=== PATIENT | female | born 1965 | race Caucasian/White ===

== ENCOUNTER 2016-08-21 11:29 | Inpatient (IN) ==
[2016-08-21] MEDS ORDERED: *HR* Morphine 2 MG/ML SYRINGE IV ONE (12:08)
--- NOTE | 2016-08-21 12:15 | Emergency Department Note ---
Disposition Clinical Impression: Cellulitis of right lower extremity, Acute kidney injury Disposition: Admitted As Inpatient Condition: Fair Time of Disposition: 16:06 Extremity Problem HPI - General Chief complaint: ED Wound/Laceration Stated complaint: "my whole right side hurts" Time Seen by Provider: 08/21/16 11:58 Source: patient, family Mode of arrival: private vehicle Limitations: no limitations Nursing Notes Reviewed: Yes Vital Signs Reviewed: Yes - History of Present Illness Pt Subjective Complaint: extremity pain Onset (ago): day(s) (This is the fourth day) Consistency: constant, Worsening Injury Location: right, lower extremity Pain Scale: 10 Quality: sharp Radiation: proximal Improves with: nothing Worsens with: weight bearing, walking, palpation Associated symptoms: Reports: chest pain (Right sided chest pain), abdominal pain (Right-sided abdominal pain), other (Right-sided arm pain. In fact I specifically asked the patient if I draw a line down the middle of your head all the way down to in between your legs Re: Saying that you hurt everywhere on the right side of that line but not on the left-hand side line and the patient responded yes that is exactly how the pain is being distributed. She also feels that is actually all coming upward from her leg.) Context: history of peripheral vascular disease (She has a chronic ulceration on the bottom of her left foot.) - Related Data Home Medications Medication Instructions Recorded Confirmed Atorvastatin Calcium [Lipitor] 80 mg PO DAILY 08/21/16 08/21/16 Clopidogrel [Plavix] 75 mg PO DAILY 08/21/16 08/21/16 Ferrous Sulfate [Ferrous Sulfate] 325 mg PO BIDWM 08/21/16 08/21/16 Gabapentin [Neurontin] 300 mg PO BID 08/21/16 08/21/16 Hydrochlorothiazide 25 mg PO DAILY 08/21/16 08/21/16 [Hydrochlorothiazide] Insulin ASPART [Novolog Flexpen] 0 unit SQ ACHS MDD Sliding Scale 08/21/1608/21 Insulin Glargine,Hum.rec.anlog 40 unit SQ QAM AND QHS 08/21/16 08/21/16 [Lantus Solostar] Lisinopril [Zestril] 10 mg PO DAILY 08/21/16 08/21/16 Magnesium Oxide [Magnesium] 400 mg PO DAILY 08/21/16 08/21/16 Metformin HCl [Metformin HCl] 1,000 mg PO BID 08/21/16 08/21/16 Nitroglycerin [Nitrostat] 0.4 mg SL Q5M PRN 08/21/16 08/21/16 Ranitidine HCl [Acid Senior Lead Software Engineer] 150 mg PO BID 08/21/16 08/21/16 Sennosides/Docusate Sodium 1 tab PO HS 08/21/16 08/21/16 [Senexon-S Tablet] Sertraline [Zoloft] 100 mg PO DAILY 08/21/16 08/21/16 Allergies Allergy/AdvReac Type Severity Reaction Status Date / Time Hydromorphone [From Dilaudid] Allergy Palpitation Verified 04/01/15 16:49 s All systems ED: reviewed and negative except as stated. Constitutional: Denies: fever, chills ENT ED: Denies: ear pain, throat pain, congestion Cardiovascular: Reports: chest pain. Denies: palpitations Respiratory: Denies: cough, dyspnea, wheezes Gastrointestinal: Reports: abdominal pain. Denies: nausea, vomiting, diarrhea Genitourinary: Denies: urgency Musculoskeletal: Denies: back pain, neck pain Integumentary: Reports: rash (She complains that her right lower extremity is getting redder than normal.) Neurological: Reports: weakness (Generalized) Past Medical History - Past Medical History Attestation: Yes The following information was validated with the patient. Source: patient, old records reviewed, obtained from family, nursing notes reviewed Medical history: Reports: diabetes, hyperlipidemia, hypertension Surgical history: Reports: other (R foot Sx recent. Still bandaged) Psychiatric history: Reports: no psych history RAP ARTIST history: Reports: no RAP ARTIST history - Social History Smoking Status: Current every day smoker Smokeless Tobacco Status: No Alcohol use: Reports: none Drug use: Reports: none Physical Exam - General Limitations: no limitations General appearance: alert, in no apparent distress - Head Head exam: atraumatic, normocephalic - Eye Eye exam: Present: normal appearance, PERRL, EOMI - ENT ENT exam: normal exam, normal oropharynx, mucous membranes moist - Neck Neck exam: Present: normal inspection, full ROM - Chest Chest inspection: Present: normal inspection, symmetric chest wall rise, tenderness (There is tenderness palpation to the right side of the chest, particularly the right costosternal junctions.) - Respiratory Respiratory exam: Present: normal lung sounds bilaterally. Absent: respiratory distress - Cardiovascular Cardiovascular exam: Present: regular rate, normal rhythm, normal heart sounds - Abdominal Exam Abdominal exam: Present: soft, Non-Tender (Although the patient reports right- sided abdominal pain she has no tenderness to the abdomen at all. She has a tenderness is in the right groin.) - Extremities Exam Extremities exam: Present: tenderness (She has tenderness to the right lower extremity, particularly the posterior calf and popliteal fossa as well as the right groin.), pedal edema (There appear to be chronic venous stasis changes to the skin.), calf tenderness, other (The patient has erythema that is warm and tender over the lower leg. There is an open ulcer of the right heel which is chronic.) - Neurological Exam Neurological exam: Present: alert, oriented X3. Absent: motor sensory deficit - Psychiatric Psychiatric exam: Present: normal affect, normal mood - Skin Skin exam: Present: warm, dry Course Course Narrative: Patient presents with pain to the entire right side of her body. She has some chest wall tenderness which explains her chest discomfort. She has no tenderness to palpation of the abdomen. She has discomfort in the right groin on palpation. She is a bit obese so I cannot really feel any lymph nodes although I suspect that there the cause of her discomfort. I think she has got some issues with that right leg including infection and possibly including a DVT. I am going to give her medications for symptom relief. On the do an infectious workup. I will do a chest pain evaluation as well. I am getting a Doppler of the leg to look for clot. Disposition will be based on diagnostic results and reevaluation. - Reevaluation(s) Reevaluation #1: Labs indicated no elevation of white count which is significantly above baseline. Creatinine is also double its baseline. Bicarbonate was low at 16. Patient does not look bad look at her but there is clearly something going on. I think it is all coming from the leg. She has the open wound on the leg. She is noticing pain up the whole leg. She does have redness and warmth to touch of that leg. Doppler study was negative. I discussed the case with hospitalist and will going to admit the patient to the hospital. The nurses are still having some trouble with IV access. We will go and get something by ultrasound and once at 10 we will start the vancomycin and Levaquin. I discussed the case with the hospitalist already and they have accepted the patient for admission. Time: 16:05 Vital Signs Temperature 97.7 F 08/21/16 11:31 Pulse Rate 97 08/21/16 11:31 Respiratory Rate 16 08/21/16 11:31 Blood Pressure 106/62 08/21/16 11:31 O2 Sat by Pulse Oximetry 98 08/21/16 11:31 Temperature 97.7 F 08/21/16 11:31 Pulse Rate 88 08/21/16 15:30 Respiratory Rate 16 08/21/16 15:30 Blood Pressure 108/56 08/21/16 15:30 O2 Sat by Pulse Oximetry 99 08/21/16 15:30 Oxygen Delivery Oxygen Delivery Room Air Extremity Problem, Nontraumati - Medical Records Medical records reviewed: Yes I reviewed the patient's medical records. - Lab Data Lab results reviewed: Yes I reviewed the patient's lab results. Result diagrams: 08/21/16 13:59 08/21/16 13:59 Lab Results 08/21/16 08/21/16 08/21/16 Range/Units 13:50 13:59 13:59 WBC 17.8 H (4.3-11.1) K/mcL RBC 3.99 (3.82-4.97) M/mcL Hgb 10.0 L (11.5-15.4) g/dL Hct 32.2 L (35.3-44.9) % MCV 80.7 L (83.0-100.0) fL MCH 25.1 L (28.0-33.3) pg MCHC 31.1 L (31.6-35.5) g/dL RDW 15.5 H (11.5-14.5) % Plt Count 368 (140-400) K/mcL MPV 9.6 (9.4-12.4) fL Immature Gran % 1.0 (0-4) % Seg Neutrophils % 83.2 % Lymphocytes % 5.4 % Monocytes % 9.4 % Eosinophils % 0.8 % Basophils % 0.2 % Neutrophils # 14.8 H (1.6-8.9) K/mcL Lymphocytes # 1.0 (0.6-4.6) K/mcL Monocytes # 1.7 H (0.0-1.3) K/mcL Eosinophils # 0.2 (0.0-0.6) K/mcL Basophils # 0.0 (0.0-0.2) K/mcL PT 13.0 H (9.4-12.1) Seconds INR 1.2 D-Dimer 794 H (0-500) ng/mLFEU Sodium 125 L (136-145) mEq/L Potassium 4.7 H (3.5-4.5) mEq/L Chloride 99 (98-109) mEq/L Carbon Dioxide 16 L (19-29) mEq/L BUN 34 H (7-20) mg/dL Creatinine 2.10 H (0.57-1.11) mg/dL Est GFR ( Amer) 30 L (> 60) Est GFR (Non-Af Amer) 25 L (> 60) BUN/Creatinine Ratio 16 (6-26) Glucose 163 H (70-99) mg/dL Calculated Osmolality 271 L (280-300) Calcium 8.8 (8.6-10.8) mg/dL Troponin I (0-0.03) ng/mL 08/21/16 Range/Units 13:59 WBC (4.3-11.1) K/mcL RBC (3.82-4.97) M/mcL Hgb (11.5-15.4) g/dL Hct (35.3-44.9) % MCV (83.0-100.0) fL MCH (28.0-33.3) pg MCHC (31.6-35.5) g/dL RDW (11.5-14.5) % Plt Count (140-400) K/mcL MPV (9.4-12.4) fL Immature Gran % (0-4) % Seg Neutrophils % % Lymphocytes % % Monocytes % % Eosinophils % % Basophils % % Neutrophils # (1.6-8.9) K/mcL Lymphocytes # (0.6-4.6) K/mcL Monocytes # (0.0-1.3) K/mcL Eosinophils # (0.0-0.6) K/mcL Basophils # (0.0-0.2) K/mcL PT (9.4-12.1) Seconds INR D-Dimer (0-500) ng/mLFEU Sodium (136-145) mEq/L Potassium (3.5-4.5) mEq/L Chloride (98-109) mEq/L Carbon Dioxide (19-29) mEq/L BUN (7-20) mg/dL Creatinine (0.57-1.11) mg/dL Est GFR ( Amer) (> 60) Est GFR (Non-Af Amer) (> 60) BUN/Creatinine Ratio (6-26) Glucose (70-99) mg/dL Calculated Osmolality (280-300) Calcium (8.6-10.8) mg/dL Troponin I 0.01 (0-0.03) ng/mL - Radiology Data Radiology results reviewed: Yes I reviewed the patient's radiology results. - EKG Data EKG attestation: Yes I reviewed and interpreted this EKG. EKG shows normal: sinus rhythm, axis, intervals, QRS complexes, ST-T waves Rate: normal Interpretation: no acute changes, normal EKG
[2016-08-21] MEDS ORDERED: *HR* Morphine 2 MG/ML SYRINGE IVP ONE (13:02)
[2016-08-21 14:15] LABS: INR 1.2
[2016-08-21 14:16] LABS: Basophils % 0.2 %; Eosinophils # 0.2 K/mcL (0.0-0.6); Eosinophils % 0.8 %; Hematocrit 32.2 % (35.3-44.9); Lymphocytes % 5.4 %; Mean Corpuscular HGB Conc 31.1 g/dL (31.6-35.5); Mean Corpuscular Hemoglobin 25.1 pg (28.0-33.3); Mean Corpuscular Volume 80.7 fL (83.0-100.0); Mean Platelet Volume 9.6 fL (9.4-12.4); Monocytes # 1.7 K/mcL (0.0-1.3); Monocytes % 9.4 %; Neutrophils # 14.8 K/mcL (1.6-8.9); Platelet Count 368 K/mcL (140-400); Red Blood Count 3.99 M/mcL (3.82-4.97); Red Cell Distribution Width 15.5 % (11.5-14.5); Segmented Neutrophils % 83.2 %
[2016-08-21 14:28] LABS: Calcium 8.8 mg/dL (8.6-10.8); Potassium 4.7 mEq/L (3.5-4.5)
[2016-08-21] MEDS ORDERED: Levofloxacin 750 MG/150 ML 750 MG/150 ML BAG IVPB ONE (16:03)
[2016-08-21] MEDS ORDERED: Vancomycin (wt based) 1,000 MG VIAL IV SCH (17:00)
[2016-08-21] MEDS ORDERED: Vancomycin 2,000 MG in D5% in Water 500 ML IVPB ONE (17:00)
[2016-08-21] MEDS ORDERED: Naloxone 0.4 MG/ML INJ IVP PRN (19:18)
[2016-08-21] MEDS ORDERED: Ondansetron ODT 4 MG TAB.RAPDIS SL PRN (19:18)
[2016-08-21] MEDS ORDERED: *HR* Morphine 2 MG/ML SYRINGE IVP PRN (19:24)
[2016-08-21] MEDS ORDERED: Dextrose Gel 15 GM PO PRN ×2 (19:25)
[2016-08-21] MEDS ORDERED: *HR* Dextrose 50 % in Water (Syg) 50 ML SYRINGE IVP PRN (19:25)
[2016-08-21] MEDS ORDERED: D5% in Water 1,000 ML IV PRN (19:25)
[2016-08-21] MEDS ORDERED: Nitroglycerin 0.4 MG TAB.SUBL SL PRN (19:26)
--- NOTE | 2016-08-21 19:46 | Internal Med History&Physical ---
Date of Encounter: 08/21/16 Time of Encounter: 19:35 Assessment and Plan (1) Cellulitis of right lower extremity Current visit: Yes Status: Acute RLE with erythema and edema, Right foot ulcer, nonhealing. WBC 17.8. blood cultures ordered, awaiting results IV Vanc and Levaquin continue broad spectrum antibiotics. (2) Acute kidney injury Current visit: Yes Status: Acute BUN/Creatinine 34/2.10. Reports poor appetite for the last week. May be due to poor oral intake/dehydration. UA with micro ordered Hold Lisinopril, HCTZ, Metformin IV fluids 0.9NS at 125mL/hr recheck chemistry in morning. If not improved, will get retroperitoneal ultrasound, and further work up. (3) Non-healing ulcer Current visit: Yes Status: Acute Reports she has had this wound for 5 years. S/p 3 surgeries, last November 2015. measuring 5cm x 6cm. Foul smelling. Consult to wound care. Xray 2 views to assess for osteomyelitis If Xray negative for osteo, will get MRI. Consult to Podiatry. Qualifiers: Non-pressure ulcer stage: with fat layer exposed Qualified Code(s): L98.492 - Non-pressure chronic ulcer of skin of other sites with fat layer exposed (4) Type 2 diabetes mellitus Current visit: Yes Status: Acute diabetic diet check blood sugar ACHS basal insulin dose of 40u detemir Sliding scale correction dose ACHS hypoglycemic protocol. Qualifiers: Diabetes mellitus complication status: with circulatory complication Diabetes mellitus complication detail: with other circulatory complications Diabetes mellitus retirement insulin use: with counseling center manager use Qualified Code(s) : E11.59 - Type 2 diabetes mellitus with other circulatory complications; Z79.4 - claims collector (current) use of insulin (5) DVT prophylaxis Current visit: Yes Status: Acute up to chair BID calf compressors Heparin 5,000u SQ BID (6) Hyponatremia Current visit: Yes Status: Acute sodium of 125 IV fluids 0.9NS at 125mL/hr recheck chemistry in AM Internal Medicine - H&P: HPI Chief complaint: right sided pain Admitted From: Emergency Dept Plans for Post Hospital Care: Home History of present illness: Ms. Mccallum is a 50 year old female with history of type 2 diabetes, peripheral vascular disease, hyperlipidemia, coronary artery disease, and chronic right heel foot ulcer who presented to the emergency department today after having right-sided pain since Saturday. She reports her whole right side started hurting on Saturday and she will call today and it was worse. Poor appetite for about a week, fever to 100 degrees Fahrenheit, chills, lightheadedness. She reports tenderness to the whole entire right side of her body including her abdomen and chest. She denies palpitations, sweats, nausea, diarrhea, numbness , tingling. She has a non-healing ulcer on her right heel for the past 5 years , she has had 3 surgeries on it last being in November 2015. She was concerned it might be infected "again". She reports having osteomyelitis in the past, and sees a compound specialist in [place]. She has home health visit daily for dressing changes. Work up in the ED was significant for leukocytosis with WBC of 17.8, REMY with Cr of 2.10, hyponatremia with sodium of 125. On exam, she is alert and oriented and appears comfortable. Lungs are clear bilaterally, heart has regular rate and rhythm. Wound on right heel measures 5cm x 6cm and is round with maceration at margins, is through to sub cutaneous tissue, and is foul smelling. It has moderate amount of serosanguinous drainage on dressing. The patient's case was discussed with Dr. Garcia and he agreed with the assessment and plan set forth. Past Med Surg Social Fam HX - Past Medical History Medical history: coronary artery disease, diabetes, GERD, hyperlipidemia, hypertension, peripheral artery disease Psychiatric history: no psych history - Past Surgical History Surgical History: angioplasty/stent, orthopedic, other (right foot surgery x 3 ) , other - Social History Smoking Status: Current every day smoker Packs per day: 1 Smokeless Tobacco Status: No Alcohol use: none Drug use: none - Family History Mother Family Member Ethnicity: Non- Living Status: Still Living Hx Family Cardiac Disorders: Yes Hx Family Endocrine Disorder: Yes (type 2 diabetes) Father Family Member Ethnicity: Non- Living Status: Still Living Hx Family Endocrine Disorder: Yes (type 2 diabetes) Internal Medicine - H&P: Meds Atorvastatin Calcium [Lipitor] 80 mg PO DAILY 08/21/16 [History] Clopidogrel [Plavix] 75 mg PO DAILY 08/21/16 [History] Ferrous Sulfate [Ferrous Sulfate] 325 mg PO BIDWM 08/21/16 [History] Gabapentin [Neurontin] 300 mg PO BID 08/21/16 [History] Hydrochlorothiazide [Hydrochlorothiazide] 25 mg PO DAILY 08/21/16 [History] Insulin ASPART [Novolog Flexpen] 0 unit SQ ACHS MDD Sliding Scale 08/21/16 [ History] Insulin Glargine,Hum.rec.anlog [Lantus Solostar] 40 unit SQ QAM AND QHS [History] Lisinopril [Zestril] 10 mg PO DAILY 08/21/16 [History] Magnesium Oxide [Magnesium] 400 mg PO DAILY 08/21/16 [History] Metformin HCl [Metformin HCl] 1,000 mg PO BID 08/21/16 [History] Nitroglycerin [Nitrostat] 0.4 mg SL Q5M PRN 08/21/16 [History] Ranitidine HCl [Acid Maintenance Inspector] 150 mg PO BID 08/21/16 [History] Sennosides/Docusate Sodium [Senexon-S Tablet] 1 tab PO HS 08/21/16 [History] Sertraline [Zoloft] 100 mg PO DAILY 08/21/16 [History] Allergies Hydromorphone [From Dilaudid] Allergy (Verified 04/01/15 16:49) Palpitations All Systems PM: A 10-system review of systems was performed and is negative for pertinent findings except as documented above in the HPI. - Constitutional Constitutional: chills, fever(s), no night sweats - EENT Eyes: no change in vision, no discharge, no pain, no photophobia Ears: no ear discharge, no ear pain, no tinnitus Nose, mouth and throat: no dysphagia, no nasal discharge, no neck pain, no sore throat - Cardiovascular Cardiovascular ROS IM: chest pain (right sided), no diaphoresis, no dyspnea, no lightheadedness, no palpitations, no syncope - Respiratory Respiratory: no cough, no dyspnea, no wheezing, no excessive phlegm production - Gastrointestinal Gastrointestinal: abdominal pain (right sided), no diarrhea, no hematemesis, no hematochezia, no melena, no nausea, no vomiting - Genitourinary Genitourinary: no change in urinary stream, no dysuria, no flank pain, no hematuria - Musculoskeletal Musculoskeletal ROS IM: no numbness, no tingling - Integumentary Integumentary IM: non-healing lesions, no rash, no unusual bruising - Neurological Neurological ROS: no confusion, no convulsions, no focal weakness, no numbness, no tingling, no tremor(s) - Hematologic/Lymphatic Hematologic/Lymphatic: no easy bruising - Constitutional Vitals: Temp Pulse Resp BP Pulse Ox 98.1 F 90 16 93/62 98 08/21/16 17:20 08/21/16 17:20 08/21/16 17:20 08/21/16 17:20 08/21/16 17:20 General appearance: Present: A&O X 3, morbidly obese, pleasant, no acute distress - Head Head exam: Present: atraumatic, normocephalic - Eye Eye exam: Present: PERRL, conjuntiva pink, sclera anicteric Pupils: Present: PERRL - Neck Neck exam general surgery: Present: supple, trachea midline. Absent: lymphadenopathy - Respiratory Respiratory exam: Present: CTAB. Absent: accessory muscle use, rales, rhonchi, wheezes - Cardiovascular Cardiovascular exam: Present: RRR, +S1, +S2. Absent: diastolic murmur, gallop, rubs, systolic murmur - GI/Abdominal GI/Abdominal exam: Present: normal bowel sounds, soft, tenderness (right sided) , no peritoneal signs. Absent: distended - Extremities Exam Extremities exam: Present: pedal edema, tenderness, warm, radial pulses palpable and symetrical. Absent: calf tenderness, cyanotic Additional comments: right heel ulcer 5cm x 6cm to subcutaneous tissue, foul smelling, with sero- sanguinous drainage. Bilateral calve edema and erythema R> L. - Neurological Exam Neurological exam: Present: CN II-XII intact, oriented X3, no focal deficits. Absent: facial droop, speech deficit - Skin Skin exam: Present: dry Internal Med - H&P Results - Labs CBC & Chem 7: 08/21/16 13:59 08/21/16 13:59
[2016-08-21] MEDS: 0.9 % Sodium Chloride 1,000 ML IVC SCH (20:30)
[2016-08-21] MEDS: Gabapentin 300 MG CAPSULE PO SCH (20:32)
[2016-08-21] MEDS ORDERED: Insulin DETEMIR 100 UNIT/ML X5UNITS SQ SCH ×2 (21:00→23:06)
[2016-08-21] MEDS: Insulin LISPRO 300 UNITS/3 ML VIAL SQ SCH (21:08)
[2016-08-21] MEDS: Sennosides/Docusate Sodium TABLET PO SCH (22:03)
[2016-08-21 23:40] LABS: Bacteria,Urine Few per hpf (None-Few); Hyaline Casts,Urine None Seen per lpf (None-Few); RBC,Urine 30-50 per hpf (0-3); Squamous Epithelial Cell,Urine Many per lpf (None-Few); WBC,Urine TNTC per hpf (0-3)
[2016-08-21 23:44] LABS: Bilirubin,Urine Negative (Negative); Blood,Urine Moderate (Negative); Clarity,Urine Turbid (Clear); Color,Urine Yellow (Yellow); Glucose,Urine (UA) Normal (Normal); Ketones,Urine Negative (Negative); Leukocyte Esterase,Urine Large (Negative); Nitrite,Urine Negative (Negative); PH,Urine 5.5 pH Units (5.0-8.0); Protein,Urine 30 mg/dL (Neg-Trace); Specific Gravity,Urine 1.014 (1.010-1.025); Urobilinogen,Urine Normal (Normal)
[2016-08-21] MEDS ORDERED: Vancomycin 2,000 MG in D5% in Water 250 ML IVPB SCH (23:45)
[2016-08-22 01:54] LABS: VBG HCO3 24.9 mEq/L (21-27); VBG PH 7.36 pH Units (7.32-7.42)
[2016-08-22 01:56] LABS: Basophils % 0.2 %; Eosinophils # 0.1 K/mcL (0.0-0.6); Eosinophils % 0.8 %; Hematocrit 29.9 % (35.3-44.9); Hemoglobin 9.6 g/dL (11.5-15.4); Immature Granulocytes % 0.8 % (0-4); Immature Platelets 2.4 % (1.1-6.1); Lymphocytes # 0.8 K/mcL (0.6-4.6); Lymphocytes % 4.8 %; Mean Corpuscular HGB Conc 32.1 g/dL (31.6-35.5); Mean Corpuscular Hemoglobin 25.9 pg (28.0-33.3); Mean Corpuscular Volume 80.6 fL (83.0-100.0); Mean Platelet Volume 9.9 fL (9.4-12.4); Monocytes # 1.3 K/mcL (0.0-1.3); Monocytes % 7.9 %; Neutrophils # 13.6 K/mcL (1.6-8.9); Platelet Count 392 K/mcL (140-400); Red Blood Count 3.71 M/mcL (3.82-4.97); Red Cell Distribution Width 15.6 % (11.5-14.5); Segmented Neutrophils % 85.5 %
[2016-08-22 02:12] LABS: Calcium 8.4 mg/dL (8.6-10.8); Potassium 5.3 mEq/L (3.5-4.5)
[2016-08-22] MEDS: 0.9 % Sodium Chloride 1,000 ML IVC SCH ×2 (04:12→20:30)
[2016-08-22] MEDS: *HR* Heparin 5,000 UNIT/ML VIAL SQ SCH ×2 (05:37→17:13)
[2016-08-22] MEDS ORDERED: Insulin LISPRO 300 UNITS/3 ML VIAL SQ SCH (07:30)
[2016-08-22] MEDS: Magnesium Oxide 400 MG TABLET PO SCH (08:29)
[2016-08-22] MEDS: Insulin LISPRO 300 UNITS/3 ML VIAL SQ SCH ×4 (08:30→20:31)
[2016-08-22] MEDS: Gabapentin 300 MG CAPSULE PO SCH ×2 (08:30→20:30)
[2016-08-22] MEDS ORDERED: Levofloxacin 750 MG/150 ML 750 MG/150 ML BAG IVPB SCH (09:00)
[2016-08-22] MEDS ORDERED: hydroCHLOROthiazide 25 MG TABLET PO SCH (09:00)
--- NOTE | 2016-08-22 12:59 | Podiatry Consult Note ---
Date of Encounter: 08/22/16 Time of Encounter: 12:00 Assessment and Plan (1) Acute kidney injury Current visit: Yes Status: Acute (2) Cellulitis of right lower extremity Current visit: Yes Status: Acute (3) Non-healing ulcer Current visit: Yes Status: Acute 1. Chronic right heel ulcer that is being managed by Dr. Banegas at [facility]. 2. Xray completed of right foot upon admission and concerning for osteomyelitis. MRI was ordered but not completed due to a Stent in the right leg. 3. ESR/CRP and wound cultures ordered and pending. WBC: 15.9 4. Wound care to include dressing changes BID. Irrigate wound with saline, apply mesalt, 4x4 gauze and kerlix. 5. Keep all pressure away from the right heel. 6. Agree with present antibiotic therapy. 7. Plan of care reviewed with Dr. Walker and agreeable. 8. Dr. Walker to evaluate patient with in next 24 hours. Qualifiers: Non-pressure ulcer stage: with fat layer exposed Qualified Code(s): L98.492 - Non-pressure chronic ulcer of skin of other sites with fat layer exposed (4) Type 2 diabetes mellitus Current visit: Yes Status: Acute Qualifiers: Diabetes mellitus complication status: with circulatory complication Diabetes mellitus complication detail: with other circulatory complications Diabetes mellitus buttermaker insulin use: with halfway use Qualified Code(s) : E11.59 - Type 2 diabetes mellitus with other circulatory complications; Z79.4 - FDC (current) use of insulin (5) Diabetic neuropathy Current visit: Yes Status: Acute Qualifiers: Diabetes mellitus type: type 2 Diabetes mellitus complication detail: diabetic polyneuropathy Qualified Code(s): E11.42 - Type 2 diabetes mellitus with diabetic polyneuropathy History of Present Illness HPI: Ms. Mccallum is a 50 year old female admitted to [facility] for right sided pain. Patient has a medical history significant for HTN, GERD, CAD, hyperlipidemia, DM with neuropathy, PAD, and a chronic right heel ulcer. Patient states she has had this right heel ulcer for 5 years. She states she had seen Dr. Walker in the past and was transferred to [facility] for treatment of her right heel ulcer. She states she has had three surgeries on her right heel and has had osteomyelitis. Patient states her most recent right heel surgery was in November of [address] Banegas. She states she had an angioplasty and a stent placed in her right leg by Dr. Blake at [facility] in May of 2016. She is being managed in wound care at [facility] and has home health care daily for dressing changes. Patient states she was suppose to have a f/u appointment with Dr. Banegas and wound care tomorrow. She states she feels her ulcer is at a "stand still". She denies any pain. Patient has complaints of fever and chills. Patient smokes a pack of cigarettes per day for the past 37 years. Patients blood sugar was checked in the room with a reading of 431. She states she lives at home with her and uses a motorized wheel chair. She states she does not bear weight on her right heel. Past Med Surg Social Fam HX - Past Medical History Medical history: coronary artery disease, diabetes, GERD, hyperlipidemia, hypertension, peripheral artery disease Psychiatric history: no psych history - Past Surgical History Surgical History: angioplasty/stent, orthopedic, other (right foot surgery x 3 ) , other - Social History Smoking Status: Current every day smoker Packs per day: 1 Smokeless Tobacco Status: No Alcohol use: none Drug use: none - Family History Mother Family Member Ethnicity: Non- Living Status: Still Living Hx Family Cardiac Disorders: Yes Hx Family Endocrine Disorder: Yes (type 2 diabetes) Father Family Member Ethnicity: Non- Living Status: Still Living Hx Family Endocrine Disorder: Yes (type 2 diabetes) Medications and Allergies Atorvastatin Calcium [Lipitor] 80 mg PO DAILY 08/21/16 [History] Clopidogrel [Plavix] 75 mg PO DAILY 08/21/16 [History] Ferrous Sulfate [Ferrous Sulfate] 325 mg PO BIDWM 08/21/16 [History] Gabapentin [Neurontin] 300 mg PO BID 08/21/16 [History] Hydrochlorothiazide [Hydrochlorothiazide] 25 mg PO DAILY 08/21/16 [History] Insulin ASPART [Novolog Flexpen] 0 unit SQ ACHS MDD Sliding Scale 08/21/16 [ History] Insulin Glargine,Hum.rec.anlog [Lantus Solostar] 40 unit SQ QAM AND QHS [History] Lisinopril [Zestril] 10 mg PO DAILY 08/21/16 [History] Magnesium Oxide [Magnesium] 400 mg PO DAILY 08/21/16 [History] Metformin HCl [Metformin HCl] 1,000 mg PO BID 08/21/16 [History] Nitroglycerin [Nitrostat] 0.4 mg SL Q5M PRN 08/21/16 [History] Ranitidine HCl [Acid Convenience Store Clerk] 150 mg PO BID 08/21/16 [History] Sennosides/Docusate Sodium [Senexon-S Tablet] 1 tab PO HS 08/21/16 [History] Sertraline [Zoloft] 100 mg PO DAILY 08/21/16 [History] Allergies Hydromorphone [From Dilaudid] Allergy (Verified 04/01/15 16:49) Palpitations All Systems Reviewed: A 10-system review of systems was performed and is negative for pertinent findings except as documented above in the HPI. Physical Exam - Constitutional Vitals: Temp Pulse Resp BP Pulse Ox 98 F 86 18 125/71 94 L 08/22/16 12:15 08/22/16 12:15 08/22/16 12:15 08/22/16 12:15 08/22/16 12:15 Exam: General appearance: alert awake oriented X 3. Calm and pleasant, no acute distress.. Vascular: Pedal pulses +1/4 DP/PT , No evidence of cyanosis, pallor or rubor, Edema graded at 2+/4, Skin temperature warm, No varicosities or varicose veins noted, Homans Sign negative, capillary refill time is immediate to digits.. Neurologic: Decreased epicritic sensation, vibratory sensation as evidenced by the SWMF 5.07 and tuning fork 128 CPS.. Musculoskeletal: Muscle strength 4/5 and equal bilaterally.. Integument: Skin with decreased turgor, decreased subcutaneous tissue, skin thin and shiny with trophic changes associated with comorbidities as described in history. Full thickness ulceration to the plantar aspect of the right heel measuring 6.5 cm in length x 5 cm in width x 0.5 cm in depth. Moderate amount of serous drainage observed to dressing. Probe to bone to center of ulceration. Base of wound with fibrous and granulation tissue. Wound edges connected with periwound erythema. No streaking, no lmyphangitis, no fluctuance, no pus. Results - Labs Result Diagrams: 08/22/16 01:29 08/22/16 01:29 Labs: Abnormal lab results WBC 15.9 K/mcL (4.3-11.1) H 08/22/16 01:29 RBC 3.71 M/mcL (3.82-4.97) L 08/22/16 01:29 Hgb 9.6 g/dL (11.5-15.4) L 08/22/16 01:29 Hct 29.9 % (35.3-44.9) L 08/22/16 01:29 MCV 80.6 fL (83.0-100.0) L 08/22/16 01:29 MCH 25.9 pg (28.0-33.3) L 08/22/16 01:29 RDW 15.6 % (11.5-14.5) H 08/22/16 01:29 Neutrophils # 13.6 K/mcL (1.6-8.9) H 08/22/16 01:29 PT 13.0 Seconds (9.4-12.1) H 08/21/16 13:50 D-Dimer 794 ng/mLFEU (0-500) H 08/21/16 13:50 VBG pO2 77 mmHg (25-40) H 08/22/16 01:29 Sodium 126 mEq/L (136-145) L 08/22/16 01:29 Potassium 5.3 mEq/L (3.5-4.5) H 08/22/16 01:29 Chloride 96 mEq/L (98-109) L 08/22/16 01:29 BUN 37 mg/dL (7-20) H 08/22/16 01:29 Creatinine 2.43 mg/dL (0.57-1.11) H 08/22/16 01:29 Est GFR ( Amer) 25 (> 60) L 08/22/16 01:29 Est GFR (Non-Af Amer) 21 (> 60) L 08/22/16 01:29 Glucose 260 mg/dL (70-99) H 08/22/16 01:29 POC Glucose 431 (58-89) H* 08/22/16 11:49 Calcium 8.4 mg/dL (8.6-10.8) L 08/22/16 01:29 Urine Clarity Turbid (Clear) A 08/21/16 23:20 Urine Protein 30 mg/dL (Neg-Trace) H 08/21/16 23:20 Urine Blood Moderate (Negative) H 08/21/16 23:20 Ur Leukocyte Esterase Large (Negative) H 08/21/16 23:20 Urine Microscopic RBC 30-50 per hpf (0-3) H 08/21/16 23:20 Urine Microscopic WBC TNTC per hpf (0-3) H 08/21/16 23:20 Ur Squamous Epith Cells Many per lpf (None-Few) H 08/21/16 23:20 H & H 08/22/16 Range/Units 01:29 Hgb 9.6 L (11.5-15.4) g/dL Hct 29.9 L (35.3-44.9) % All other labs normal. Consult Discharge Plan - Plan Referrals: Matteo Love MD [Primary Care Provider] - 08/29/16 1:30 pm
[2016-08-22] MEDS: Vancomycin 2,000 MG in D5% in Water 500 ML IVPB SCH (13:00)
--- NOTE | 2016-08-22 13:35 | Electrocardiograph Report ---
[facility] Test Date: 2016-08-21 Pat Name: Jessenia Mccallum Department: 103 Room: 3A56 Gender: F Absorption Plant Operator: JUSTIN : 1965 Requested By: Matteo Fletcher Order Number: [id number] Reading MD: Sasha Pickens Measurements Intervals [place] Rate: 96 P: 11 WA: 150 QRS: -8 QRSD: 82 T: 12 QT: 344 QTc: 397 Interpretive Statements SINUS RHYTHM Electronically Signed On 08-22-16 13:34:22 EST by Sasha Pickens
--- NOTE | 2016-08-22 15:17 | Internal Med Progress Note ---
Date of Encounter: 08/22/16 Time of Encounter: 09:00 - Assessment and plan (1) Cellulitis of right lower extremity Current Visit: Yes Status: Acute Assessment and plan: Due to diabetic neuropathy caused decrease in sensation on the foot. Will continue IV antibiotic. MRI to confirm osteomyelitis. Podiatry consult. Patient is at high risk because she is on vancomycin, need close monitoring. (2) Acute kidney injury Current Visit: Yes Status: Acute Assessment and plan: Patient has elevated creatinine comparing with her baseline. She may have CKD Caused by long-term poorly controlled diabetes. Will give IV fluid and closely follow up renal function. (3) Hyponatremia Current Visit: Yes Status: Acute Assessment and plan: Patient has a mild hyponatremia. We will continue IV normal saline and follow- up sodium level (4) Non-healing ulcer Current Visit: Yes Status: Acute Assessment and plan: Will continue antibiotic treatment. Podiatry consult. MRI to confirm osteomyelitis. Qualifiers: Non-pressure ulcer stage: with fat layer exposed Qualified Code(s): L98.492 - Non-pressure chronic ulcer of skin of other sites with fat layer exposed (5) Type 2 diabetes mellitus Current Visit: Yes Status: Acute Assessment and plan: Patient has high blood sugar level. Will continue her insulin regimen and adjusted the dose according to the glucose level. Qualifiers: Diabetes mellitus complication status: with circulatory complication Diabetes mellitus complication detail: with other circulatory complications Diabetes mellitus prison insulin use: with prison use Qualified Code(s) : E11.59 - Type 2 diabetes mellitus with other circulatory complications; Z79.4 - prison (current) use of insulin (6) Hyperkalemia Current Visit: Yes Status: Acute Assessment and plan: We will give 1 dose of Kayexalate. Also potassium will get down when her hyperglycemia has been corrected with insulin. We will follow-up potassium level closely. (7) DVT prophylaxis Current Visit: Yes Status: Acute Assessment and plan: Heparin subcutaneously - Subjective Interval history: Patient is a 50-year-old female admitted for diabetic foot wound. Her past medical history is significant for diabetes, CAD, hyperlipidemia, hypertension, PAD, GERD. Patient was seen and examined. She states she has decreased sensation on both feet. She has right foot wound on the heel, well dressed. She has no fever. Denies nausea or vomiting. We will continue antibiotic. Podiatry consult appreciated. Order MRI to confirm osteomyelitis. - Constitutional Vitals: Temp Pulse Resp BP Pulse Ox 98 F 86 18 125/71 94 L 08/22/16 12:15 08/22/16 12:15 08/22/16 12:15 08/22/16 12:15 08/22/16 12:15 General appearance: Present: A&O X 3, morbidly obese, pleasant, no acute distress - Head Head exam: Present: atraumatic, normocephalic - Eye Eye exam: Present: PERRL, conjuntiva pink, sclera anicteric Pupils: Present: PERRL - Neck Neck exam general surgery: Present: supple, trachea midline. Absent: lymphadenopathy - Respiratory Respiratory exam: Present: CTAB. Absent: accessory muscle use, rales, rhonchi, wheezes - Cardiovascular Cardiovascular exam: Present: RRR, +S1, +S2. Absent: diastolic murmur, gallop, rubs, systolic murmur - GI/Abdominal GI/Abdominal exam: Present: normal bowel sounds, soft, no peritoneal signs. Absent: distended, tenderness - Extremities Exam Extremities exam: Present: warm, radial pulses palpable and symetrical. Absent : calf tenderness, cyanotic, pedal edema Additional comments: Right foot wound, well dressed. - Neurological Exam Neurological exam: Present: CN II-XII intact, motor sensory deficit (Decreased sensation on both feet), oriented X3, no focal deficits. Absent: pronater drift , facial droop, speech deficit - Skin Skin exam: Present: dry, intact Internal Medicine: Result - Labs CBC & Chem 7: 08/22/16 01:29 08/22/16 01:29 Labs: Short CBC 08/22/16 Range/Units 01:29 WBC 15.9 H (4.3-11.1) K/mcL Hgb 9.6 L (11.5-15.4) g/dL Hct 29.9 L (35.3-44.9) % Plt Count 392 (140-400) K/mcL Neutrophils # 13.6 H (1.6-8.9) K/mcL BMP 08/22/16 01:29 Sodium 126 L Potassium 5.3 H Chloride 96 L Carbon Dioxide 20 BUN 37 H Creatinine 2.43 H Glucose 260 H Calcium 8.4 L Urine 08/21/16 Range/Units 23:20 Urine Color Yellow (Yellow) Urine Clarity Turbid A (Clear) Urine pH 5.5 (5.0-8.0) pH Units Ur Specific [place] 1.014 (1.010-1.025) Urine Protein 30 H (Neg-Trace) mg/dL Urine Glucose (UA) Normal (Normal) mg/dL - ABG Interpretation ABG results: PT/INR, D-dimer PT 13.0 Seconds (9.4-12.1) H 08/21/16 13:50 D-Dimer 794 ng/mLFEU (0-500) H 08/21/16 13:50 - Impressions Impressions Foot X-Ray 08/21/16 19:32 IMPRESSION: 1. Soft tissue ulceration of the heel pad with increased irregularity and erosive changes of the underlying calcaneus concerning for osteomyelitis. 2. Osteopenia. 3. Diffuse soft tissue swelling. No focal soft tissue gas or radiopaque foreign body. D/ / Corey Parkinson MD / Corey Parkinson MD Interpreting Provider: Corey Parkinson MD Consult Discharge Plan - Plan [facility] [place] [facility]Primary Care Provider[facility] - 08/29/16 1:30 pm
--- NOTE | 2016-08-22 17:07 | Venous Imaging Report ---
LE Venous Duplex Patient Name:Jessenia Mccallum Order Number:[id number] Procedure Date:08/21/2016 Date:1965Age:50 yrs Gender:Female Location:[facility] ED Room #: ED10 Market Risk Manager:Ammy Ramos Referring MD:Matteo Fletcher MD product development coordinator:Matteo Love MD Reading MD:Grant Luciano MD Primary Indications:Right leg pain, r/o DVT Secondary Indications: Risk Factors Yes/No Hx of Superficial Phlebitis Impressions: Normal right lower extremity deep and superficial venous exam. Normal contralateral common femoral vein. Recommendations: Test completed on 08/21/2016 at 1:25:00 pm. Critical findings reported to -ED- in person at 1:25:00 pm on 08/21/2016 by Ammy Ramos. Findings Prior Study: No prior study available for comparison. Lower Extremity Venous Duplex Side Vein Compress Spontaneous Flow Augment Diameter (cm) Depth (cm) Right Distal Iliac Normal Yes Phasic Yes Right Common Femoral Normal Yes Phasic Yes Right Superficial Femoral Normal Yes Phasic Yes Right Popliteal Normal Yes Phasic Yes Right Posterior Tibial Normal Yes Phasic Yes Right Peroneal Normal Yes Phasic Yes Right Saphenofemoral Junction Normal Yes Phasic Yes Right Great Saphenous Normal Yes Phasic Yes Right Lesser Saphenous Normal Yes Phasic Yes Left Common Femoral Normal Yes Phasic Yes Updated by Grant Luciano MD on 08/22/2016 5:03:28 PM electronically signed on 08/22/2016 5:03:45 PM with status of Final
[2016-08-22] MEDS: Sennosides/Docusate Sodium TABLET PO SCH (20:30)
[2016-08-22] MEDS: Insulin DETEMIR 100 UNIT/ML X5UNITS SQ SCH (20:32)
[2016-08-23 04:29] LABS: Basophils % 0.2 %; Eosinophils # 0.1 K/mcL (0.0-0.6); Eosinophils % 0.5 %; Hematocrit 27.1 % (35.3-44.9); Hemoglobin 8.6 g/dL (11.5-15.4); Immature Granulocytes % 0.6 % (0-4); Lymphocytes % 7.8 %; Mean Corpuscular HGB Conc 31.7 g/dL (31.6-35.5); Mean Corpuscular Hemoglobin 25.7 pg (28.0-33.3); Mean Corpuscular Volume 81.1 fL (83.0-100.0); Mean Platelet Volume 9.8 fL (9.4-12.4); Monocytes # 1.4 K/mcL (0.0-1.3); Monocytes % 11.4 %; Neutrophils # 9.6 K/mcL (1.6-8.9); Platelet Count 335 K/mcL (140-400); Red Blood Count 3.34 M/mcL (3.82-4.97); Red Cell Distribution Width 15.7 % (11.5-14.5); Segmented Neutrophils % 79.5 %
[2016-08-23 04:55] LABS: Calcium 7.8 mg/dL (8.6-10.8); Potassium 4.5 mEq/L (3.5-4.5)
[2016-08-23] MEDS: 0.9 % Sodium Chloride 1,000 ML IVC SCH ×3 (05:52→20:45)
[2016-08-23] MEDS: *HR* Heparin 5,000 UNIT/ML VIAL SQ SCH ×3 (05:53→17:39)
[2016-08-23] MEDS ORDERED: Levofloxacin 750 MG/150 ML 750 MG/150 ML BAG IVPB SCH (09:00)
[2016-08-23] MEDS: Insulin LISPRO 300 UNITS/3 ML VIAL SQ SCH ×3 (10:00→17:34)
[2016-08-23] MEDS: Gabapentin 300 MG CAPSULE PO SCH ×2 (10:02→20:44)
[2016-08-23] MEDS: Magnesium Oxide 400 MG TABLET PO SCH (10:02)
[2016-08-23] MEDS: Acetaminophen 325 MG TABLET PO PRN ×2 (10:09→17:33)
[2016-08-23] MEDS: Insulin DETEMIR 100 UNIT/ML X5UNITS SQ SCH ×2 (10:09→20:45)
[2016-08-23] MEDS: Vancomycin 2,000 MG in D5% in Water 500 ML IVPB SCH (12:13)
--- NOTE | 2016-08-23 14:03 | Podiatry Progress Note ---
Date of Encounter: 08/23/16 Time of Encounter: 12:30 - Assessment and Plan (1) Acute kidney injury Current Visit: Yes Status: Acute (2) Cellulitis of right lower extremity Current Visit: Yes Status: Acute (3) Non-healing ulcer Current Visit: Yes Status: Acute 1. MRI completed of right foot on 08/22/16. MRI showed underlying acute on chronic osteomyelitis of the calcaneus, right. 2. ESR: 99, CRP: 176, WBC: 12.1 3. After consulting with Dr. Walker, recommend treating osteomyelitis with continuation of IV antibiotics for 6 weeks and wound care. Patient will need weekly labs and to include a CBC, ESR, CRP, BMP. Patient is being treated by Dr. Banegas at [facility] for her right heel and will need to f/u as soon as she is discharged. 4. Continue wound care as ordered. Continue to keep all pressure away from the right heel. Qualifiers: Non-pressure ulcer stage: with fat layer exposed Qualified Code(s): L98.492 - Non-pressure chronic ulcer of skin of other sites with fat layer exposed (4) Type 2 diabetes mellitus Current Visit: Yes Status: Acute Qualifiers: Diabetes mellitus complication status: with circulatory complication Diabetes mellitus complication detail: with other circulatory complications Diabetes mellitus roasterman insulin use: with roasterman use Qualified Code(s) : E11.59 - Type 2 diabetes mellitus with other circulatory complications; Z79.4 - buttermaker (current) use of insulin (5) Diabetic neuropathy Current Visit: Yes Status: Acute Qualifiers: Diabetes mellitus type: type 2 Diabetes mellitus complication detail: diabetic polyneuropathy Qualified Code(s): E11.42 - Type 2 diabetes mellitus with diabetic polyneuropathy (6) Osteomyelitis Current Visit: Yes Status: Acute 1. MRI completed of right foot on 08/22/16. MRI showed underlying acute on chronic osteomyelitis of the calcaneus, right. 2. ESR: 99, CRP: 176, WBC: 12.1 3. After consulting with Dr. Walker, recommend treating osteomyelitis with continuation of IV antibiotic therapy for 6 weeks and wound care. Patient will need weekly labs and to include a CBC, ESR, CRP, BMP. Patient is being treated by Dr. Banegas at [facility] for her right heel and will need to f/u as soon as she is discharged. 4. Continue wound care as ordered. Continue to keep all pressure away from the right heel. Qualifiers: Osteomyelitis location: foot Laterality: right Chronicity: chronic Qualified Code(s): M86.671 - Other chronic osteomyelitis, right ankle and foot Subjective Interval history: Patient is sitting up in bed awaiting lunch. Patient has a dressing intact to her right heel. Patient had an MRI completed on 08/22/16. Discussed results with patient and plan of care. No c/o pain, fever, chills, cp. Objective - Vital Signs Vital Signs: Vital Signs Temp Pulse Resp BP Pulse Ox 08/23/16 11:41 98.9 F 80 18 125/78 95 08/23/16 07:30 98.2 F 84 18 125/73 95 08/23/16 03:22 99.2 F 92 15 125/69 94 L 08/22/16 23:00 99.7 F H 70 16 106/62 95 08/22/16 19:18 99.5 F 93 14 109/65 97 Intake and Output 08/22/16 08/23/16 08/23/16 23:59 07:59 15:59 Intake Total 200 / 200 1200 / 1200 1360 / 1360 Output Total 500 / 500 800 / 800 450 / 450 Balance -300 / -300 400 / 400 910 / 910 Intake: IV Fluids 1000 / 1000 1000 / 1000 0.9 % Sodium Chloride 1, 1000 / 1000 1000 / 1000 000 ML @ 100 mls/hr IVC . Q10H [facility] Rx#:[id number] Oral 200 / 200 200 / 200 360 / 360 Output: Urine 500 / 500 800 / 800 450 / 450 Other: Meal Breakfast Percent of Meal Consumed 90% Stool Size Moderate Moderate Stool Consistency loose soft Stool Color Brown Brown Weight 127.3 kg Blood Glucose* 302 292 294 Patient Weight 08/23/16 23:59 Weight 127.3 kg - Exam Exam: General appearance: alert awake oriented X 3. Calm and pleasant, no acute distress.. Wound: Dressing intact to right foot. (patient declined dressing change due to lunch). - Lab Result Diagrams: 08/24/16 03:43 08/24/16 03:43 Labs: Abnormal lab results WBC 12.1 K/mcL (4.3-11.1) H 08/23/16 04:01 RBC 3.34 M/mcL (3.82-4.97) L 08/23/16 04:01 Hgb 8.6 g/dL (11.5-15.4) L 08/23/16 04:01 Hct 27.1 % (35.3-44.9) L 08/23/16 04:01 MCV 81.1 fL (83.0-100.0) L 08/23/16 04:01 MCH 25.7 pg (28.0-33.3) L 08/23/16 04:01 RDW 15.7 % (11.5-14.5) H 08/23/16 04:01 Neutrophils # 9.6 K/mcL (1.6-8.9) H 08/23/16 04:01 Monocytes # 1.4 K/mcL (0.0-1.3) H 08/23/16 04:01 ESR 99 mm/hr (0-15) H 08/22/16 13:56 PT 13.0 Seconds (9.4-12.1) H 08/21/16 13:50 D-Dimer 794 ng/mLFEU (0-500) H 08/21/16 13:50 VBG pO2 77 mmHg (25-40) H 08/22/16 01:29 Sodium 129 mEq/L (136-145) L 08/23/16 04:01 Carbon Dioxide 16 mEq/L (19-29) L 08/23/16 04:01 BUN 39 mg/dL (7-20) H 08/23/16 04:01 Creatinine 2.44 mg/dL (0.57-1.11) H 08/23/16 04:01 Est GFR ( Amer) 25 (> 60) L 08/23/16 04:01 Est GFR (Non-Af Amer) 21 (> 60) L 08/23/16 04:01 Glucose 289 mg/dL (70-99) H 08/23/16 04:01 POC Glucose 294 (58-89) H 08/23/16 11:43 Calcium 7.8 mg/dL (8.6-10.8) L 08/23/16 04:01 C-Reactive Protein 176 mg/L (Less than 5) H 08/22/16 13:56 Urine Clarity Turbid (Clear) A 08/21/16 23:20 Urine Protein 30 mg/dL (Neg-Trace) H 08/21/16 23:20 Urine Blood Moderate (Negative) H 08/21/16 23:20 Ur Leukocyte Esterase Large (Negative) H 08/21/16 23:20 Urine Microscopic RBC 30-50 per hpf (0-3) H 08/21/16 23:20 Urine Microscopic WBC TNTC per hpf (0-3) H 08/21/16 23:20 Ur Squamous Epith Cells Many per lpf (None-Few) H 08/21/16 23:20 Microbiology, Last 48 Hours 08/22/16 12:08 Wound Culture - Preliminary Right Foot No pathogens isolated. 08/22/16 12:08 Gram Stain - Final Right Foot Consult Discharge Plan - Plan Referrals: Kate,Matteo Velez MD [Primary Care Provider] - 08/29/16 1:30 pm
[2016-08-23] MEDS ORDERED: Insulin LISPRO 300 UNITS/3 ML VIAL SQ SCH (15:40)
--- NOTE | 2016-08-23 15:46 | Internal Med Progress Note ---
Date of Encounter: 08/23/16 Time of Encounter: 09:00 - Assessment and plan (1) Cellulitis of right lower extremity Current Visit: Yes Status: Acute Assessment and plan: Due to diabetic neuropathy caused decrease in sensation on the foot. Will continue IV antibiotic. MRI shows acute on chronic osteomyelitis. Podiatry consult saw pt, no plan for procedure this time. Patient is at high risk because she is on vancomycin, need close monitoring. (2) Acute kidney injury Current Visit: Yes Status: Acute Assessment and plan: Patient has elevated creatinine comparing with her baseline. However her last blood work was February 2016. Not sure it is her new baseline or if she has acute renal function change. Creatinine level is stable during hospitalization. She may have CKD Caused by long-term poorly controlled diabetes. Will give IV fluid and closely follow up renal function during hospitalization. Patient the need to see a environmental assistant upon discharge (3) Hyponatremia Current Visit: Yes Status: Acute Assessment and plan: Patient has a mild hyponatremia. We will continue IV normal saline and follow- up sodium level (4) Non-healing ulcer Current Visit: Yes Status: Acute Assessment and plan: Will continue antibiotic treatment. Podiatry consult. MRI shows acute on chronic osteomyelitis. Qualifiers: Non-pressure ulcer stage: with fat layer exposed Qualified Code(s): L98.492 - Non-pressure chronic ulcer of skin of other sites with fat layer exposed (5) Type 2 diabetes mellitus Current Visit: Yes Status: Acute Assessment and plan: Patient has high blood sugar level. Will continue her insulin regimen and adjusted the dose according to the glucose level. 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 (7) DVT prophylaxis Current Visit: Yes Status: Acute Assessment and plan: Heparin subcutaneously - Time Spent With Patient Greater than 35 minutes - Subjective Interval history: Patient is a 50-year-old female admitted for diabetic foot wound. Her past medical history is significant for diabetes, CAD, hyperlipidemia, hypertension, PAD, GERD. Patient was seen and examined. She states she has decreased sensation on both feet. She has right foot wound on the heel, well dressed. She has no fever. Denies nausea or vomiting. WBC trend down. We will continue antibiotic. Podiatry consult appreciated. No plan for procedure this time. Pt will f/u her doctor in [facility] as outpatient upon discharge. MRI shows acute on chronic osteomyelitis. - Constitutional Vitals: Temp Pulse Resp BP Pulse Ox 98.9 F 80 18 125/78 95 08/23/16 11:41 08/23/16 11:41 08/23/16 11:41 08/23/16 11:41 08/23/16 11:41 General appearance: Present: A&O X 3, morbidly obese, pleasant, no acute distress - Head Head exam: Present: atraumatic, normocephalic - Eye Eye exam: Present: PERRL, conjuntiva pink, sclera anicteric Pupils: Present: PERRL - Neck Neck exam general surgery: Present: supple, trachea midline. Absent: lymphadenopathy - Respiratory Respiratory exam: Present: CTAB. Absent: accessory muscle use, rales, rhonchi, wheezes - Cardiovascular Cardiovascular exam: Present: RRR, +S1, +S2. Absent: diastolic murmur, gallop, rubs, systolic murmur - GI/Abdominal GI/Abdominal exam: Present: normal bowel sounds, soft, no peritoneal signs. Absent: distended, tenderness - Extremities Exam Extremities exam: Present: warm, radial pulses palpable and symetrical. Absent : calf tenderness, cyanotic, pedal edema Additional comments: Wound On the right heel, well dressed. - Neurological Exam Neurological exam: Present: CN II-XII intact, oriented X3, no focal deficits. Absent: pronater drift, facial droop, speech deficit - Skin Skin exam: Present: dry, intact Internal Medicine: Result - Labs CBC & Chem 7: 08/23/16 04:01 08/23/16 04:01 Labs: Short CBC 08/23/16 Range/Units 04:01 WBC 12.1 H (4.3-11.1) K/mcL Hgb 8.6 L (11.5-15.4) g/dL Hct 27.1 L (35.3-44.9) % Plt Count 335 (140-400) K/mcL Neutrophils # 9.6 H (1.6-8.9) K/mcL BMP 08/23/16 04:01 Sodium 129 L Potassium 4.5 Chloride 104 Carbon Dioxide 16 L BUN 39 H Creatinine 2.44 H Glucose 289 H Calcium 7.8 L - ABG Interpretation ABG results: PT/INR, D-dimer PT 13.0 Seconds (9.4-12.1) H 08/21/16 13:50 D-Dimer 794 ng/mLFEU (0-500) H 08/21/16 13:50 - Impressions Impressions Foot MRI 08/22/16 10:11 IMPRESSION: 1. Large ulceration along the plantar surface of the foot at the heel with exposed bone and underlying acute on chronic osteomyelitis of the calcaneus. Chronic deformity of the calcaneus noted likely partially related to given history of postsurgical changes of the calcaneus as well as chronic changes of osteomyelitis. 2. Chronically torn and retracted Achilles tendon. 3. Thickening and irregular appearance of the flexor hallucis longus tendon which is abnormally positioned and likely chronically torn. The distal portion of the tendon is not visualized. 4. Tear of the anterior talofibular ligament. Chronic injury of the calcaneofibular ligament. 5. Significant diffuse subcutaneous edema and mild diffuse muscular edema. Correlate clinically for cellulitis/myositis. 6. Small nonspecific effusions of the tibiotalar, subtalar, and calcaneal navicular joints. D/ / Aleksandar Oliva MD / Aleksandar Oliva MD Interpreting Provider: Aleksandar Oliva MD Consult Discharge Plan - Plan [facility] [Primary Care Provider[facility] - 08/29/16 1:30 pm
[2016-08-23] MEDS: Sennosides/Docusate Sodium TABLET PO SCH (20:44)
[2016-08-24 04:18] LABS: Potassium 4.4 mEq/L (3.5-4.5)
[2016-08-24 04:19] LABS: Basophils % 0.2 %; Eosinophils # 0.1 K/mcL (0.0-0.6); Hematocrit 27.5 % (35.3-44.9); Hemoglobin 8.9 g/dL (11.5-15.4); Immature Granulocytes % 0.7 % (0-4); Lymphocytes # 1.1 K/mcL (0.6-4.6); Lymphocytes % 9.2 %; Mean Corpuscular HGB Conc 32.4 g/dL (31.6-35.5); Mean Corpuscular Hemoglobin 26.1 pg (28.0-33.3); Mean Corpuscular Volume 80.6 fL (83.0-100.0); Mean Platelet Volume 9.8 fL (9.4-12.4); Monocytes # 1.2 K/mcL (0.0-1.3); Monocytes % 9.6 %; Neutrophils # 9.7 K/mcL (1.6-8.9); Platelet Count 349 K/mcL (140-400); Red Blood Count 3.41 M/mcL (3.82-4.97); Red Cell Distribution Width 15.9 % (11.5-14.5); Segmented Neutrophils % 79.3 %
[2016-08-24] MEDS: 0.9 % Sodium Chloride 1,000 ML IVC SCH (06:04)
[2016-08-24] MEDS: *HR* Heparin 5,000 UNIT/ML VIAL SQ SCH (06:07)
[2016-08-24] MEDS: Magnesium Oxide 400 MG TABLET PO SCH (07:56)
[2016-08-24] MEDS: Gabapentin 300 MG CAPSULE PO SCH (07:56)
[2016-08-24] MEDS: Insulin DETEMIR 100 UNIT/ML X5UNITS SQ SCH (07:56)
[2016-08-24] MEDS: Insulin LISPRO 300 UNITS/3 ML VIAL SQ SCH ×3 (08:14→17:08)
[2016-08-24 14:40] VITALS: BP 103/63
--- NOTE | 2016-08-24 15:45 | Discharge Summary ---
Date of Encounter: 08/24/16 Time of Encounter: 11:00 - Discharge Diagnosis (1) Cellulitis of right lower extremity Priority: Primary Status: Acute (2) Acute kidney injury Priority: Secondary Status: Acute (3) Hyponatremia Priority: Secondary Status: Acute (4) Non-healing ulcer Priority: Primary Status: Acute Qualifiers: Non-pressure ulcer stage: with fat layer exposed Qualified Code(s): L98.492 - Non-pressure chronic ulcer of skin of other sites with fat layer exposed (5) Type 2 diabetes mellitus Priority: Secondary Status: Acute Qualifiers: Diabetes mellitus complication status: with circulatory complication Diabetes mellitus complication detail: with other circulatory complications Diabetes mellitus shelter insulin use: with shelter use Qualified Code(s) : E11.59 - Type 2 diabetes mellitus with other circulatory complications; 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 (6) Hyperkalemia Priority: Secondary Status: Acute (7) DVT prophylaxis Priority: Secondary Status: Acute (8) Osteomyelitis Priority: Primary Status: Acute Qualifiers: Osteomyelitis location: foot Laterality: right Chronicity: chronic Qualified Code(s): M86.671 - Other chronic osteomyelitis, right ankle and foot - Discharge Medications Prescriptions: Levofloxacin 750 MG/150 ML [Levaquin 750mg/150 mL] 750 mg IVPB Q48H #2 bag Vancomycin HCl in Dextrose 5 % [Vancomycin 1.5 Gram/250 ml-D5w] 1.5 gm IV DAILY #3 plast..bag Home Medications: Atorvastatin Calcium [Lipitor] 80 mg PO DAILY 08/21/16 [History] Clopidogrel [Plavix] 75 mg PO DAILY 08/21/16 [History] Ferrous Sulfate 325 mg PO BIDWM 08/21/16 [History] Gabapentin [Neurontin] 300 mg PO BID 08/21/16 [History] Hydrochlorothiazide 25 mg PO DAILY 08/21/16 [History] Insulin Glargine,Hum.rec.anlog [Lantus Solostar] 40 unit SQ QAM AND QHS [History] Lisinopril [Zestril] 10 mg PO DAILY 08/21/16 [History] Magnesium Oxide [Magnesium] 400 mg PO DAILY 08/21/16 [History] Nitroglycerin [Nitrostat] 0.4 mg SL Q5M PRN 08/21/16 [History] Ranitidine HCl [Acid Federal Mediator] 150 mg PO BID 08/21/16 [History] Sennosides/Docusate Sodium [Senexon-S Tablet] 1 tab PO HS 08/21/16 [History] Sertraline [Zoloft] 100 mg PO DAILY 08/21/16 [History] Acetaminophen [Tylenol] 650 mg PO Q6HR PRN #0 tablet 08/24/16 [Rx] Heparin 5,000 unit SQ Q12HR vial 08/24/16 [Rx] Insulin LISPRO [HumaLOG] 0 units SQ HS vial 08/24/16 [Rx] Insulin LISPRO [HumaLOG] 0 units SQ TIDAC vial 08/24/16 [Rx] Levofloxacin 750 MG/150 ML [Levaquin 750mg/150 mL] 750 mg IVPB Q48H #2 bag 08/24 [Rx] Morphine [Morphine Sulfate] 2 mg IVP Q4HR PRN #0 syringe 08/24/16 [Rx] Naloxone [Narcan] 0.4 mg IVP Q2MIN PRN #0 inj 08/24/16 [Rx] Omeprazole [PriLOSEC] 20 mg PO DAILY@0630 capsule. 08/24/16 [Rx] Vancomycin HCl in Dextrose 5 % [Vancomycin 1.5 Gram/250 ml-D5w] 1.5 gm IV DAILY #3 plast..bag 08/24/16 [Rx] Allergies/Adverse Reactions: Allergies Hydromorphone [From Dilaudid] Allergy (Verified 04/01/15 16:49) Palpitations Procedures/tests Complete & Pending: Procedures Performed prior 72 hours Category Date Time Status MR foot RT wo con [MR] Stat MRI 08/22/16 10:11 Completed Date of admission: 08/21/16 17:05 Primary care physician: Matteo Love MD Consults: 08/21/16 19:32 Consult to Wound Care [CONS] Routine Reason for Consult: chronic right foot ulcer Call Completed: No 08/21/16 23:06 Consult to Podiatry [CONS] Routine Consulting Provider: Podiatry [facility] Reason for Consult: chronic right heel ulcer, concern for osteomyelitis Call Completed: No Discharging clinician: Marquis Schrader Anticipated date of discharge: 08/24/16 - Patient Status Disposition: Transfer Short-Term Hosp Condition: Fair Overall status at discharge: patient is not back to baseline - Discharge Instructions Follow Up With: [facility] [place],Matteo Velez MD [Primary Care Provider] - 08/29/16 1:30 pm - Diet and Activity Activity: as per physical therapy Diet: diabetic diet Interval History: Ms. Mccallum is a 50 year old female with history of type 2 diabetes, peripheral vascular disease, hyperlipidemia, coronary artery disease, and chronic right heel foot ulcer who presented to the emergency department today after having right-sided pain since Saturday. She reports her whole right side started hurting on Saturday and she will call today and it was worse. Poor appetite for about a week, fever to 100 degrees Fahrenheit, chills, lightheadedness. She reports tenderness to the whole entire right side of her body including her abdomen and chest. She denies palpitations, sweats, nausea, diarrhea, numbness , tingling. She has a non-healing ulcer on her right heel for the past 5 years , she has had 3 surgeries on it last being in November 2015. She was concerned it might be infected "again". She reports having osteomyelitis in the past, and sees a biology specialist in [place]. She has home health visit daily for dressing changes. Work up in the ED was significant for leukocytosis with WBC of 17.8, REMY with Cr of 2.10, hyponatremia with sodium of 125. On exam, she is alert and oriented and appears comfortable. Lungs are clear bilaterally, heart has regular rate and rhythm. Wound on right heel measures 5cm x 6cm and is round with maceration at margins, is through to sub cutaneous tissue, and is foul smelling. It has moderate amount of serosanguinous drainage on dressing. The patient's case was discussed with Dr. Garcia and he agreed with the assessment and plan set forth. Hospital course: Ms. Mccallum is a 50 year old female admitted for right heel wound. She has a chronic wound which is caused by diabetic neuropathy. She was treated with Vanco and Levaquin. Her white count is getting better. Patient has chronic osteomyelitis, had been placed on long-term antibiotic for twice before. This time, MRI shows acute on chronic osteomyelitis. Podiatry consult was called, no plan for procedures this time. Patient is being treated by Dr. Banegas at [facility] previously, podiatry recommended to continue follow-up. I saw and examined the patient today. I have discussed with the patient that she has chronic and acute osteomyelitis, need long-term antibiotic. However, we do not have ID consult available right now. As she has been treated several times for osteomyelitis, her condition may be complicated and need ID involvement. I will recommend to transfer her to [facility], where she had been treated previously, to get further management. Patient agrees with the plan. I have called [facility] transfer center, get Call back that patient is accepted by Dr. Romero. Patient will transfer to [facility] as long as there is a bed available. Time spent discussing smoking cessation with patient: more than 10 minutes - Time Spent with Patient Total time spent providing and/or coordinating discharge services: 40 minutes Greater than 30 minutes - Constitutional Vitals: Temp Pulse Resp BP Pulse Ox 97.7 F 67 16 103/63 97 08/24/16 14:39 08/24/16 14:39 08/24/16 14:39 08/24/16 14:39 08/24/16 14:39 General appearance: Present: A&O X 3, morbidly obese, pleasant, no acute distress - Head Head exam: Present: atraumatic, normocephalic - Eye Eye exam: Present: PERRL, conjuntiva pink, sclera anicteric Pupils: Present: PERRL - Neck Neck exam general surgery: Present: supple, trachea midline. Absent: lymphadenopathy - Respiratory Respiratory exam: Present: CTAB. Absent: accessory muscle use, rales, rhonchi, wheezes - Cardiovascular Cardiovascular exam: Present: RRR, +S1, +S2. Absent: diastolic murmur, gallop, rubs, systolic murmur - GI/Abdominal GI/Abdominal exam: Present: normal bowel sounds, soft, no peritoneal signs. Absent: distended, tenderness - Extremities Exam Extremities exam: Present: warm, radial pulses palpable and symetrical. Absent : calf tenderness, cyanotic, pedal edema Additional comments: Right heel wound was dressed. - Neurological Exam Neurological exam: Present: CN II-XII intact, motor sensory deficit (Decreased sensation on both feet), oriented X3, no focal deficits. Absent: pronater drift , facial droop, speech deficit - Skin Skin exam: Present: dry, intact - VTE Documentation of Mechanical Device: Graduated compression elastic hosiery
--- NOTE | 2016-08-24 16:15 | Physician Discharge Referral ---
ExtendedCare Referral Info Transfer To: [facility] Provider in Charge after Transfer: Other - Diagnosis (1) Cellulitis of right lower extremity Priority: Primary Status: Acute (2) Acute kidney injury Priority: Secondary Status: Acute (3) Hyponatremia Priority: Secondary Status: Acute (4) Non-healing ulcer Priority: Primary Status: Acute (5) Type 2 diabetes mellitus Priority: Secondary Status: Acute (6) Hyperkalemia Priority: Secondary Status: Acute (7) DVT prophylaxis Priority: Secondary Status: Acute (8) Osteomyelitis Priority: Primary Status: Acute Prognosis: Fair Aware of Diagnosis: Patient Aware of Prognosis: Patient - Transfer Medications Prescriptions: Levofloxacin 750 MG/150 ML [Levaquin 750mg/150 mL] 750 mg IVPB Q48H #2 bag Vancomycin HCl in Dextrose 5 % [Vancomycin 1.5 Gram/250 ml-D5w] 1.5 gm IV DAILY #3 plast..bag Home Medications: Atorvastatin Calcium [Lipitor] 80 mg PO DAILY 08/21/16 [History] Clopidogrel [Plavix] 75 mg PO DAILY 08/21/16 [History] Ferrous Sulfate 325 mg PO BIDWM 08/21/16 [History] Gabapentin [Neurontin] 300 mg PO BID 08/21/16 [History] Hydrochlorothiazide 25 mg PO DAILY 08/21/16 [History] Insulin Glargine,Hum.rec.anlog [Lantus Solostar] 40 unit SQ QAM AND QHS [History] Lisinopril [Zestril] 10 mg PO DAILY 08/21/16 [History] Magnesium Oxide [Magnesium] 400 mg PO DAILY 08/21/16 [History] Nitroglycerin [Nitrostat] 0.4 mg SL Q5M PRN 08/21/16 [History] Ranitidine HCl [Acid Cena] 150 mg PO BID 08/21/16 [History] Sennosides/Docusate Sodium [Senexon-S Tablet] 1 tab PO HS 08/21/16 [History] Sertraline [Zoloft] 100 mg PO DAILY 08/21/16 [History] Acetaminophen [Tylenol] 650 mg PO Q6HR PRN #0 tablet 08/24/16 [Rx] Heparin 5,000 unit SQ Q12HR vial 08/24/16 [Rx] Insulin LISPRO [HumaLOG] 0 units SQ HS vial 08/24/16 [Rx] Insulin LISPRO [HumaLOG] 0 units SQ TIDAC vial 08/24/16 [Rx] Levofloxacin 750 MG/150 ML [Levaquin 750mg/150 mL] 750 mg IVPB Q48H #2 bag 08/24 [Rx] Morphine [Morphine Sulfate] 2 mg IVP Q4HR PRN #0 syringe 08/24/16 [Rx] Naloxone [Narcan] 0.4 mg IVP Q2MIN PRN #0 inj 08/24/16 [Rx] Omeprazole [PriLOSEC] 20 mg PO DAILY@0630 capsule. 08/24/16 [Rx] Vancomycin HCl in Dextrose 5 % [Vancomycin 1.5 Gram/250 ml-D5w] 1.5 gm IV DAILY #3 plast..bag 08/24/16 [Rx] Allergies/Adverse Reactions: Allergies Hydromorphone [From Dilaudid] Allergy (Verified 04/01/15 16:49) Palpitations - Respiratory Orders Smoking Cessation: Smoking cessation has been advised. For more information, call the [place] Tobacco Quit Line at 9-554-DKPZ-NOW. - Advance Directives Code Status: Full Code - Rehabiliation Orders Rehab Potential: Fair - Diet Orders No Concentrated Sweets (Diabetic diet) CERTIFICATION: I certify that the transfer of the above named patient to an Extended Care Facility is necessary for the continuing treatment of the diagnosis listed. The above information is true and accurate reflection of patient's current condition. Confidential - Redisclosure prohibited without a patient's written consent.
[2016-08-24] MEDS ORDERED: Aminoglycoside Consult 1 EACH MC ONE (18:41)
[2016-08-25] MEDS ORDERED: Vancomycin 1 EACH in EMPTY BAG 1 EACH IVPB SCH (09:00)
== END 2016-08-24 18:42 | disposition short-term general hospital (02) | DRG 344 ==
LOC: EMEROO 11:29 → 3ANU 11:29 → OBSVTOIN 17:05
PROVIDERS: ADMIT Internal Medicine; ATTEND Internal Medicine

== ENCOUNTER 2017-03-28 10:39 | Inpatient (IN) ==
--- NOTE | 2017-03-28 11:42 | Emergency Department Note ---
Disposition Clinical Impression: Osteomyelitis of right foot Qualifiers: Osteomyelitis type: unspecified type Qualified Code(s): M86.9 - Osteomyelitis, unspecified Diabetes Qualifiers: Diabetes mellitus type: other specified (including JASON) Diabetes mellitus complication status: with circulatory complication Diabetes mellitus complication detail: with other circulatory complications Diabetes mellitus shelter insulin use: unspecified shoe shiner insulin use status Qualified Code(s ): E13.59 - Other specified diabetes mellitus with other circulatory complications Disposition: Admitted As Inpatient Condition: Fair Referrals: Matteo Love MD [Primary Care Provider] - Forms: ED Satisfaction Letter Time of Disposition: 16:03 General Adult HPI - General Chief complaint: ED Extremity Problem,Nontraumatic Stated complaint: BLE edema Time Seen by Provider: 03/28/17 11:03 Source: patient Limitations: no limitations Nursing Notes Reviewed: Yes Vital Signs Reviewed: Yes - History of Present Illness HPI Narrative: I did review the past record and the patient does have a history of osteomyelitis of her right foot and she does have a history of diabetes and peripheral neuropathy and presents with bilateral lower extremity swelling which is worse on the right and has been present for the last 2 or 3 days of worsening and is constant and she also has chest pain which began at home this morning at 6:00 and is constant and is a poking sensation in the center of her chest and is nonexertional. No associated diaphoresis or dyspnea. No pleuritic aspect. No radiation. Social history: Smoker, no alcohol. She is here with her Pain Scale: 10 - Related Data Home Medications Medication Instructions Recorded Confirmed Atorvastatin Calcium [Lipitor] 80 mg PO DAILY 08/21/16 08/21/16 Clopidogrel [Plavix] 75 mg PO DAILY 08/21/16 08/21/16 Ferrous Sulfate 325 mg PO BIDWM 08/21/16 08/21/16 Gabapentin [Neurontin] 300 mg PO BID 08/21/16 08/21/16 Insulin Glargine,Hum.rec.anlog 40 unit SQ QAM AND QHS 08/21/16 08/21/16 [Lantus Solostar] Lisinopril [Zestril] 10 mg PO DAILY 08/21/16 08/21/16 Magnesium Oxide [Magnesium] 400 mg PO DAILY 08/21/16 08/21/16 Nitroglycerin [Nitrostat] 0.4 mg SL Q5M PRN 08/21/16 08/21/16 Ranitidine HCl [Acid Central Office Installer] 150 mg PO BID 08/21/16 08/21/16 Sennosides/Docusate Sodium 1 tab PO HS 08/21/16 08/21/16 [Senexon-S Tablet] Sertraline [Zoloft] 100 mg PO DAILY 08/21/16 08/21/16 hydroCHLOROthiazide 25 mg PO DAILY 08/21/16 08/21/16 [Hydrochlorothiazide] Previous Rx's Medication Instructions Recorded Acetaminophen [Tylenol] 650 mg PO Q6HR PRN #0 tablet 08/24/16 Heparin 5,000 unit SQ Q12HR vial 08/24/16 Insulin LISPRO [HumaLOG] 0 units SQ HS vial 08/24/16 Insulin LISPRO [HumaLOG] 0 units SQ TIDAC vial 08/24/16 Levofloxacin 750 MG/150 ML 750 mg IVPB Q48H #2 bag 08/24/16 [Levaquin Premix 750mg/150 mL] Morphine [Morphine Sulfate] 2 mg IVP Q4HR PRN #0 syringe 08/24/16 Naloxone [Narcan] 0.4 mg IVP Q2MIN PRN #0 inj 08/24/16 Omeprazole [PriLOSEC] 20 mg PO DAILY@0630 capsule. 08/24/16 Vancomycin HCl in Dextrose 5 % 1.5 gm IV DAILY #3 plast..bag 08/24/16 [Vancomycin 1.5 Gram/250 ml-D5w] Allergies Allergy/AdvReac Type Severity Reaction Status Date / Time Hydromorphone [From Dilaudid] Allergy Palpitation Verified 03/28/17 10:45 s Review of Systems: Constitutional: No fever Vision: No blurred vision ENT: No rhinorrhea Respiratory: No cough Allergic: No allergies : No blood in urine GI: No blood in stool Hematologic: No bruising Dermatologic: + skin rash Musculoskeletal: + pain in the extremities Neuro: No new numbness of the extremities Past Medical History - Past Medical History Medical history: Reports: coronary artery disease, diabetes, GERD, hyperlipidemia, hypertension, peripheral artery disease Surgical history: Reports: angioplasty/stent, orthopedic, other (right foot surgery x 3 ), other Psychiatric history: Reports: no psych history TYPISTS SUPERVISOR history: Reports: no TYPISTS SUPERVISOR history - Social History Smoking Status: Current every day smoker Smokeless Tobacco Status: No Alcohol use: Reports: none Drug use: Reports: none Physical Exam CONSTITUTIONAL: Alert and oriented X3, well-nourished, well appearing, in no apparent distress HEAD: Normocephalic; atraumatic. EYES: PERRL, no scleral icterus. NOSE: The nose is normal in appearance without rhinorrhea RESP: Normal chest excursion with respiration; breath sounds clear and equal bilaterally; no wheezes, rhonchi, or rales CARD: Regular rhythm, without murmurs, rub or gallop ABD: Non-distended; non-tender, soft,without rigidity, rebound or guarding SKIN: Normal for age and race; warm and dry; no apparent lesions Chest: Does have pain palpation anterior chest wall which does cause facial wincing. Normal appearance Extremities: 2+ and equal pulses in all 4 extremities. Does have significant bilateral lower extremity swelling which is worse on the right and is 3+ and does have some discomfort with palpation but no crepitus or fluctuance are palpated. Does have a large ulceration in the plantar aspect of the right foot with minimal surrounding erythema but no purulence. No necrosis or crepitus. - General Limitations: no limitations General appearance: alert, in no apparent distress Course Vital Signs Temperature 98.2 F 03/28/17 10:41 Pulse Rate 94 03/28/17 10:41 Respiratory Rate 16 03/28/17 10:41 Blood Pressure 125/67 03/28/17 10:41 O2 Sat by Pulse Oximetry 97 03/28/17 10:41 Temperature 98.2 F 03/28/17 10:41 Pulse Rate 91 03/28/17 12:36 Respiratory Rate 18 03/28/17 12:36 Blood Pressure 135/92 03/28/17 12:36 O2 Sat by Pulse Oximetry 95 03/28/17 12:36 Oxygen Delivery Oxygen Delivery Room Air Medical Decision Making - [facility] Narrative Medical decision making narrative: I did review the patient's EKG showing normal sinus rhythm with a rate of 92 without acute ischemic change I did compared to the previous EKG. Patient does have lab testing including troponin testing, chest x-ray. This point she has had constant pain for 5-1/2 hours which is reproducible to palpation and negative EKG and if this troponin is negative this will make cardiac disease very unlikely. Does have bilateral lower extremity swelling worse on the right and a d-dimer is ordered and pending as well as bilateral lower extremity venous duplex testing. Does have some bruising as well as some vesicles on the left lower extremity and this is likely from the massive amount of swelling that she has bilaterally. She does have chronic swelling but it is worse than usual. A BNP level is also pending. The patient will be watched closely on a piercing specialist, pulse oximeter and will be reassessed. 1143 Patient is negative for DVT according to cardiovascular and I did just speak without on the phone. D-dimer is elevated and a VQ scan will be done to look for pulmonary embolism. The patient does have elevated creatinine so I will do a V/Q set of a CT at this time. 1333 I spoke to the hospitalist who accepts for admission. Primary indication is sign bilat LE swelling worse on the right which is the side of the osteo and needs consideration of otrho/podiatry consult and consideration of MRI or bx to define a cnage or continuation of therapy for the osteo 1601 - Medical Records Medical records reviewed: Yes I reviewed the patient's medical records. - Lab Data Lab results reviewed: Yes I reviewed the patient's lab results. Result diagrams: 03/28/17 11:45 03/28/17 11:45 Lab Results 03/28/17 03/28/17 03/28/17 Range/Units 11:45 11:45 11:45 WBC 10.4 (4.3-11.1) K/mcL RBC 4.56 (3.82-4.97) M/mcL Hgb 12.3 (11.5-15.4) g/dL Hct 39.5 (35.3-44.9) % MCV 86.6 (83.0-100.0) fL MCH 27.0 L (28.0-33.3) pg MCHC 31.1 L (31.6-35.5) g/dL RDW 15.1 H (11.5-14.5) % Plt Count 265 (140-400) K/mcL MPV 10.0 (9.4-12.4) fL D-Dimer 872 H (0-500) ng/mLFEU Sodium 129 L (136-145) mEq/L Potassium 4.7 H (3.5-4.5) mEq/L Chloride 102 (98-109) mEq/L Carbon Dioxide 18 L (19-29) mEq/L BUN 37 H (7-20) mg/dL Creatinine 1.87 H (0.57-1.11) mg/dL Est GFR ( Amer) 34 L (> 60) Est GFR (Non-Af Amer) 28 L (> 60) BUN/Creatinine Ratio 20 (6-26) Glucose 218 H (70-99) mg/dL Calculated Osmolality 283 (280-300) Lactic Acid (0.5-2.2) mmol/L Calcium 9.7 (8.6-10.8) mg/dL Troponin I (0-0.03) ng/mL B-Natriuretic Peptide (0-100) pg/mL 03/28/17 03/28/17 03/28/17 Range/Units 11:45 11:45 11:45 WBC (4.3-11.1) K/mcL RBC (3.82-4.97) M/mcL Hgb (11.5-15.4) g/dL Hct (35.3-44.9) % MCV (83.0-100.0) fL MCH (28.0-33.3) pg MCHC (31.6-35.5) g/dL RDW (11.5-14.5) % Plt Count (140-400) K/mcL MPV (9.4-12.4) fL D-Dimer (0-500) ng/mLFEU Sodium (136-145) mEq/L Potassium (3.5-4.5) mEq/L Chloride (98-109) mEq/L Carbon Dioxide (19-29) mEq/L BUN (7-20) mg/dL Creatinine (0.57-1.11) mg/dL Est GFR ( Amer) (> 60) Est GFR (Non-Af Amer) (> 60) BUN/Creatinine Ratio (6-26) Glucose (70-99) mg/dL Calculated Osmolality (280-300) Lactic Acid 2.2 (0.5-2.2) mmol/L Calcium (8.6-10.8) mg/dL Troponin I 0.00 (0-0.03) ng/mL B-Natriuretic Peptide 14 (0-100) pg/mL - Radiology Data Radiology results reviewed: Yes I reviewed the patient's radiology results.
[2017-03-28 11:58] LABS: Hematocrit 39.5 % (35.3-44.9); Hemoglobin 12.3 g/dL (11.5-15.4); Mean Corpuscular HGB Conc 31.1 g/dL (31.6-35.5); Mean Corpuscular Volume 86.6 fL (83.0-100.0); Platelet Count 265 K/mcL (140-400); Red Blood Count 4.56 M/mcL (3.82-4.97); Red Cell Distribution Width 15.1 % (11.5-14.5)
[2017-03-28 12:10] LABS: Calcium 9.7 mg/dL (8.6-10.8); Potassium 4.7 mEq/L (3.5-4.5)
[2017-03-28] MEDS ORDERED: *HR* Morphine 2 MG/ML SYRINGE IVP ONE (15:41)
[2017-03-28] MEDS ORDERED: Ondansetron 4 MG/2 ML VIAL IVP ONE (15:41)
--- NOTE | 2017-03-28 15:44 | Electrocardiograph Report ---
[place] [id number] Test Date: 2017-03-28 Pat Name: Jessenia Mccallum Department: 0 Room: Gender: F Direct Care Worker: : 1965 Requested By: Anand Back Order Number: [id number] Reading MD: Jimi Briceno MD Measurements Intervals [place] Rate: 92 P: 55 [place]: 150 QRS: -2 QRSD: 81 T: 31 QT: 319 QTc: 368 Interpretive Statements SINUS RHYTHM Electronically Signed On 03-28-2017 15:42:21 EDT by Jimi Briceno MD
[2017-03-28] MEDS ORDERED: *HR* Morphine 2 MG/ML SYRINGE IVP PRN (16:41)
--- NOTE | 2017-03-28 16:43 | Internal Med History&Physical ---
Date of Encounter: 03/28/17 Time of Encounter: 17:30 Assessment and Plan (1) Cellulitis Current visit: Yes Status: Acute RLE cellulitis with source being the chronic left heel diabetic foot ulcer with h/o osteomyelitis. Will treat with vancomycin and Cefepime. Will also order an arterial ultrasound of bilateral lower extremities as well as an MRI of the RLE to assess extent/status of known osteomyelitis. LLE-cellulitis with concerning skin changes worrisome for necrosis. Arterial ultrasound pending. Consider vascular surgical consult. Qualifiers: Site of cellulitis: extremity Site of cellulitis of extremity: lower extremity Laterality: right Qualified Code(s): L03.115 - Cellulitis of right lower limb (2) Osteomyelitis of right foot Current visit: Yes Status: Acute Management as per above. For now, will continue wound care and re-consult Podiatry for any further recommendations. Arterial ultrasound results pending and may be useful in determining if vascular surgery involvement is needed. Qualifiers: Osteomyelitis type: other chronic Qualified Code(s): M86.671 - Other chronic osteomyelitis, right ankle and foot (3) Diabetic neuropathy Current visit: No Status: Acute Continue home insulin regimen. Qualifiers: Diabetes mellitus type: type 2 Diabetes mellitus complication detail: diabetic polyneuropathy Qualified Code(s): E11.42 - Type 2 diabetes mellitus with diabetic polyneuropathy (4) Hyponatremia Current visit: No Status: Acute Chronic and within usual range for patient. Patient asymptomatic. Continue to monitor. Internal Medicine - H&P: HPI Chief complaint: RLE pain Admitted From: Emergency Dept Plans for Post Hospital Care: Home History of present illness: Ms. Mccallum is a 51 year old female with PMH nonhealing RLE diabetic foot ulcer , chronic R-calcaneous osteomyelitis, DM II, HTN who presents with RLE pain, swelling and chills. Patient states that her DFU has been present for 6 years and has actually decreased in size. She is followed at [facility], and regularly attends outpatient wound care. She claims she is frequently on antibiotics and was last placed on Bactrim on Saturday for her chronic infection Starting 1 week ago, she developed chills and rigors, and right lower extremity swelling and erythema. Patient's home health nurse came to her home today and noticed a black eschar and bullae on her left lower extremity which is new (starting two days ago). Home health nurse advised her to go to the ED because of this. Patient denies any pain in her left lower extremity and did not notice any change until the home health nurse made her aware of this change. Her right lower extremity, however, has been increasingly painful. She did endorse shortness of breath and chest pain earlier this morning, but claims that this is a chronic recurring issue for which she sees her loader machine Dr. Blake at [facility]. Her symptoms were identical to prior symptoms and are completely resolved at this time. She underwent a VQ scan in the ED which was low probability for PE and troponin was negative. Per ED, she underwent a duplex ultrasound of her right lower extremity which was negative for DVT. Past Med Surg Social Fam HX - Past Medical History Medical history: coronary artery disease, diabetes, GERD, hyperlipidemia, hypertension, peripheral artery disease Psychiatric history: no psych history - Past Surgical History Surgical History: angioplasty/stent, orthopedic, other (right foot surgery x 3 ) , other - Social History Smoking Status: Current every day smoker Smokeless Tobacco Status: No Alcohol use: none Drug use: none - Family History Mother Family Member Ethnicity: Non- Living Status: Still Living Hx Family Cardiac Disorders: Yes Hx Family Endocrine Disorder: Yes (type 2 diabetes) Father Family Member Ethnicity: Non- Living Status: Still Living Hx Family Endocrine Disorder: Yes (type 2 diabetes) Internal Medicine - H&P: Meds Atorvastatin Calcium [Lipitor] 80 mg PO DAILY 08/21/16 [History] Clopidogrel [Plavix] 75 mg PO DAILY 08/21/16 [History] Ferrous Sulfate 325 mg PO BIDWM 08/21/16 [History] Gabapentin [Neurontin] 300 mg PO BID 08/21/16 [History] Insulin Glargine,Hum.rec.anlog [Lantus Solostar] 50 unit SQ QAM 08/21/16 [ History] Lisinopril [Zestril] 10 mg PO DAILY 08/21/16 [History] Magnesium Oxide [Magnesium] 400 mg PO DAILY 08/21/16 [History] Nitroglycerin [Nitrostat] 0.4 mg SL Q5M PRN 08/21/16 [History] Ranitidine HCl [Acid Telecom Engineer] 150 mg PO BID 08/21/16 [History] Sertraline [Zoloft] 100 mg PO DAILY 08/21/16 [History] hydroCHLOROthiazide [Hydrochlorothiazide] 25 mg PO DAILY 08/21/16 [History] Insulin Glargine,Hum.rec.anlog [Lantus Solostar] 40 unit SQ HS 03/28/17 [History ] Insulin LISPRO [HumaLOG] 0 units SQ TIDWM 03/28/17 [History] Metformin HCl [Glucophage] 1,000 mg PO BID 03/28/17 [History] Sulfamethoxazole/Trimeth DS [Bactrim DS] 1 each PO BID 03/28/17 [History] 3 Allergy/AdvReac Type Severity Reaction Status Date / Time Hydromorphone [From Dilaudid] Allergy Palpitation Verified 03/28/17 10:45 s heparin AdvReac See Verified 03/28/17 16:53 Comments All Systems PM: A 10-system review of systems was performed and is negative for pertinent findings except as documented above in the HPI. - Constitutional Constitutional: chills, malaise, no fever(s) - Cardiovascular Cardiovascular ROS IM: as per HPI, edema - Respiratory Respiratory: no cough, no excessive phlegm production - Constitutional Vitals: Temp Pulse Resp BP Pulse Ox 98.2 F 87 0 0/0 94 03/28/17 10:41 03/28/17 16:12 03/28/17 16:33 03/28/17 16:33 03/28/17 16:12 General appearance: Present: cooperative, A&O X 3, morbidly obese, pleasant, no acute distress, answers questions appropriately - Respiratory Respiratory exam: Present: CTAB - Cardiovascular Cardiovascular exam: Present: RRR, +S1, +S2 - GI/Abdominal GI/Abdominal exam: Present: soft. Absent: tenderness - Extremities Exam Additional comments: RLE - diffuse swelling from mid-femur on distally. Edema is non-pitting. Extremity is tender to palpation, erythema diffuse but patchy. Dorsalis pedal pulses 1+. Diabetic foot ulcer present on R-heel (plantar surface) and is non- foul smelling, draining serosanguineous fluid which is scant and staining the dressing only. - Neurological Exam Neurological exam: Present: alert, CN II-XII intact, oriented X3 - Psychiatric Psychiatric exam: Present: normal affect, normal mood - Skin Additional comments: Please see above regarding right lower extremity. LLE-on pitting pretibial edema , with bullae and black eschar present. Internal Med - H&P Results - Labs CBC & Chem 7: 03/28/17 11:45 03/28/17 11:45 Labs: Short CBC 03/28/17 Range/Units 11:45 WBC 10.4 (4.3-11.1) K/mcL Hgb 12.3 (11.5-15.4) g/dL Hct 39.5 (35.3-44.9) % Plt Count 265 (140-400) K/mcL BMP 03/28/17 11:45 Sodium 129 L Potassium 4.7 H Chloride 102 Carbon Dioxide 18 L BUN 37 H Creatinine 1.87 H Glucose 218 H Calcium 9.7 Cardiac Enzymes 03/28/17 Range/Units 11:45 Troponin I 0.00 (0-0.03) ng/mL - Impressions ITS Impressions Chest X-Ray 03/28/17 11:22 IMPRESSION: 1. Mild pulmonary vascular congestion. D/ / Oli Maxwell MD / Oli Maxwell MD Interpreting Provider: Oli Maxwell MD Pulmonary Perfusion Imaging 03/28/17 12:56 IMPRESSION: Low Probability for Pulmonary Embolus. D/ / Zen Verdugo MD / Zen Verdugo MD Interpreting Provider: Zen Verdugo MD
[2017-03-28] MEDS ORDERED: Vancomycin 1,250 MG in D5% in Water 250 ML IVPB SCH (17:00)
[2017-03-28] MEDS: Cefepime HCl 2,000 MG in D5% in Water (Mini-Bag+) 100 ML IVPB SCH (17:46)
[2017-03-28] MEDS ORDERED: Nitroglycerin 0.4 MG TAB.SUBL SL PRN (18:37)
[2017-03-28] MEDS ORDERED: Naloxone 0.4 MG/ML INJ IVP PRN (18:39)
[2017-03-28] MEDS: Vancomycin 1,500 MG in D5% in Water 250 ML IVPB SCH (19:48)
[2017-03-28] MEDS: Gabapentin 300 MG CAPSULE PO SCH (19:48)
[2017-03-28] MEDS: Famotidine 20 MG TABLET PO SCH (19:48)
[2017-03-28] MEDS: Insulin DETEMIR 100 UNIT/ML X5UNITS SQ SCH (21:54)
[2017-03-29 01:04] LABS: Basophils % 0.2 %; Eosinophils # 0.2 K/mcL (0.0-0.6); Eosinophils % 1.6 %; Hematocrit 36.4 % (35.3-44.9); Hemoglobin 11.2 g/dL (11.5-15.4); Immature Platelets 2.6 % (1.1-6.1); Lymphocytes # 1.2 K/mcL (0.6-4.6); Lymphocytes % 13.2 %; Mean Corpuscular HGB Conc 30.8 g/dL (31.6-35.5); Mean Corpuscular Hemoglobin 26.7 pg (28.0-33.3); Mean Corpuscular Volume 86.9 fL (83.0-100.0); Mean Platelet Volume 9.9 fL (9.4-12.4); Monocytes % 10.8 %; Neutrophils # 6.7 K/mcL (1.6-8.9); Platelet Count 271 K/mcL (140-400); Red Blood Count 4.19 M/mcL (3.82-4.97); Red Cell Distribution Width 15.4 % (11.5-14.5); Segmented Neutrophils % 73.2 %
[2017-03-29 01:08] LABS: INR 1.1; Prothrombin Time 11.9 Seconds (9.4-12.1)
[2017-03-29 01:11] LABS: Activated Partial Thrombo Time 28.2 Seconds (26.0-36.0)
[2017-03-29 01:21] LABS: Albumin 2.5 g/dL (3.5-5.0); Albumin/Globulin Ratio 0.5 (1.1-2.2); Bilirubin,Total 0.3 mg/dL (0.2-1.2); Calcium 9.3 mg/dL (8.6-10.8); Potassium 5.4 mEq/L (3.5-4.5); Total Protein 7.5 g/dL (6.0-8.3)
[2017-03-29] MEDS: Cefepime HCl 2,000 MG in D5% in Water (Mini-Bag+) 100 ML IVPB SCH ×2 (05:20→18:10)
[2017-03-29] MEDS: Vancomycin 1,500 MG in D5% in Water 250 ML IVPB SCH (05:56)
--- NOTE | 2017-03-29 07:00 | Venous Imaging Report ---
LE Venous Duplex Patient Name:Jessenia Mccallum Order Number:[id number] Procedure Date:03/28/2017 Date:1965Age:51 yrs Gender:Female Location:[facility] ED Room #: ER 30 B[address] Mill Operator:Kayla Rodas RDCS, RVT Referring MD:Anand Benoit MD sinker winder:Matteo Love MD Reading MD:Grant Luciano MD Primary Indications:Pedal Edema, Pain, Redness Secondary Indications: Risk Factors Yes/No Anticoagulants Plavix Recent Surgery No Hx of DVT No Hx of Superficial Phlebitis Yes Trauma to Veins No Impressions: Normal bilateral lower extremity deep and superficial venous exam. Recommendations: Test completed on 03/28/2017 at 1:35:57 pm. Critical findings reported to Dr. Back by phone at 1:40:17 pm on 03/28/2017 by Kayla Roads RDCS, RVT. Lower Extremity Venous Duplex Side Vein Compress Spontaneous Flow Augment Diameter (cm) Depth (cm) Right Distal Iliac Normal Yes Phasic Yes Right Common Femoral Normal Yes Phasic Yes Right Superficial Femoral Normal Yes Phasic Yes Right Popliteal Normal Yes Phasic Yes Right Posterior Tibial Normal Yes Phasic Yes Right Peroneal Normal Yes Phasic Yes Right Great Saphenous Normal Yes Phasic Yes Right Lesser Saphenous Normal Yes Phasic Yes Left Distal Iliac Normal Yes Phasic Yes Left Common Femoral Normal Yes Phasic Yes Left Superficial Femoral Normal Yes Phasic Yes Left Popliteal Normal Yes Phasic Yes Left Posterior Tibial Normal Yes Phasic Yes Left Peroneal Normal Yes Phasic Yes Left Great Saphenous Normal Yes Phasic Yes Left Lesser Saphenous Normal Yes Phasic Yes Updated by Grant Luciano MD on 03/29/2017 6:54:19 AM electronically signed on 03/29/2017 6:54:39 AM with status of Final
--- NOTE | 2017-03-29 07:05 | Arterial Study Report ---
LE Arterial Physiologic Study Patient Name:Jessenia Mccallum Order Number:[id number] Procedure Date:03/28/2017 Date:1965Age:51 yrs Gender:Female Lt BP:102 / mmHg Location:[facility] Room #: 3NE17 Psychology Assistant:Monserrat Lazar NICOLAS Referring MD:Dee Ramos MD binder sorter:Matteo Love MD Reading MD:Grant Luciano MD Primary Indications:Arterial Disease Risk Factors Yes/No Hypertension Yes Diabetes Yes Hypercholesterolemia Yes Smoking Current Yes Impressions: The right DESTINY and waveforms are normal. Right DESTINY 1.10. The left DESTINY and waveforms are consistent with mild disease. Left DESTINY 0.93. Recommendations: Risk factor reduction. Follow-up exam in 1 year. Findings LE Arterial Physiologic Exam: PVR: Right: The PVR waveforms are normal in the right ankle. Left: The PVR waveforms are mildly diminished in the left ankle. Prior Study: No prior study available for comparison. Segmental Pressures Side Location Pressure Index Result Right Posterior Tibial 112 1.10 Normal Right Dorsalis Pedis 94 0.92 Mildly Diminished Left Posterior Tibial 93 0.91 Mildly Diminished Left Dorsalis Pedis 95 0.93 Mildly Diminished Ankle Brachial Index Right Systolic Diastolic DESTINY Brachial 1.10 Dorsalis Pedis 94 0.92 Posterior Tibial 112 1.10 Left Systolic Diastolic DESTINY Brachial 102 0.93 Dorsalis Pedis 95 0.93 Posterior Tibial 93 0.91 Updated by Grant Luciano MD on 03/29/2017 6:58:29 AM with Status of Final electronically signed on 03/29/2017 6:59:08 AM with status of Final
[2017-03-29] MEDS: Insulin DETEMIR 100 UNIT/ML X5UNITS SQ SCH ×2 (08:38→20:02)
[2017-03-29] MEDS: Famotidine 20 MG TABLET PO SCH ×2 (08:39→20:03)
[2017-03-29] MEDS: Magnesium Oxide 400 MG TABLET PO SCH (08:39)
[2017-03-29] MEDS: Gabapentin 300 MG CAPSULE PO SCH ×2 (08:39→20:03)
[2017-03-29] MEDS ORDERED: Vancomycin 2,000 MG in D5% in Water 250 ML IVPB SCH (09:00)
--- NOTE | 2017-03-29 10:58 | Internal Med Progress Note ---
<Ulises Ochoa - Last Filed: 03/29/17 14:41> Date of Encounter: 03/29/17 Time of Encounter: 10:15 - Assessment and plan (1) Cellulitis Current Visit: Yes Status: Acute Assessment and plan: Hx of Chronic cellulitis on RLE 2/2 diabetic ulcer plantar aspect of heel.. Continued pain and cellulitis on RLE. Recently started on Bactrim for Cellulitis. LLE cellulitis new SKin changes worrisome for necrosis Continue Cefepime and Vanc added on Doxycycline. DESTINY on RLE nl, DESTINY on LLE 0.93 mild disease. COntinue Plavix. Venous duplex showed "Normal bilateral lower extremity deep and superficial venous exam." Podiatry and wound care on board. Awaiting recs. Qualifiers: Site of cellulitis: extremity Site of cellulitis of extremity: lower extremity Laterality: unspecified laterality Qualified Code(s): L03.119 - Cellulitis of unspecified part of limb (2) Osteomyelitis of right foot Current Visit: Yes Status: Acute Assessment and plan: Hx of Chronic Osteo of the R calcaneous. MRI shows no active Osteo Podiatry has been consulted. Awaiting recs. Wound care has been consulted Awaiting recs. Qualifiers: Osteomyelitis type: other chronic Qualified Code(s): M86.671 - Other chronic osteomyelitis, right ankle and foot (3) Hyponatremia Current Visit: No Status: Acute Assessment and plan: Chronic. Asymptomatic COntinue IV fluids continue to monitor (4) Diabetic neuropathy Current Visit: No Status: Acute Assessment and plan: Chronic Continue home gabapentin Qualifiers: Diabetes mellitus type: type 2 Diabetes mellitus complication detail: diabetic polyneuropathy Qualified Code(s): E11.42 - Type 2 diabetes mellitus with diabetic polyneuropathy (5) Diabetes Current Visit: Yes Status: Acute Assessment and plan: Chronic Continue home insulin Qualifiers: Diabetes mellitus type: type 2 Diabetes mellitus complication status: with circulatory complication Diabetes mellitus complication detail: with other circulatory complications Diabetes mellitus fpc insulin use: unspecified termite technician insulin use status Qualified Code(s): E11.59 - Type 2 diabetes mellitus with other circulatory complications (6) Hyperlipidemia Current Visit: Yes Status: Acute Assessment and plan: chronic continue home statin Qualifiers: Hyperlipidemia type: unspecified Qualified Code(s): E78.5 - Hyperlipidemia , unspecified - Subjective Interval history: Patient is sleeping in chair upon entering the room. The patient is arousable, but falls asleep during assessment. She reports being tired. She reports some pain behind the knee in RLE. No pain in LLE. She has chronic issues with cellulitis and osteomyelitis on RLE. LLE changes are new. - Constitutional Vitals: Temp Pulse Resp BP Pulse Ox 98.5 F 87 18 131/99 95 03/29/17 06:49 03/29/17 06:49 03/29/17 06:49 03/29/17 06:49 03/29/17 06:49 General appearance: Present: cooperative, A&O X 3, morbidly obese, pleasant, no acute distress, answers questions appropriately - Eye Eye exam: Present: sclera anicteric - ENT ENT exam: Present: mucous membranes dry - Respiratory Respiratory exam: Present: CTAB. Absent: rales, rhonchi, wheezes - Cardiovascular Cardiovascular exam: Present: RRR, +S1, +S2. Absent: diastolic murmur, gallop, rubs - GI/Abdominal GI/Abdominal exam: Present: normal bowel sounds, soft. Absent: tenderness - Extremities Exam Extremities exam: Present: pedal edema - Neurological Exam Neurological exam: Present: oriented X3. Absent: speech deficit - Psychiatric Psychiatric exam: Present: normal affect, normal mood - Skin Additional comments: LLE: pitting edema, bullae, and black eschar. erytema to Purple coloration, venous statis changes RLE: diffuse edema. erythema, Diabetic foot ulcer plantar calcaneous. some serousangiunous drainage. Internal Medicine: Result - Labs CBC & Chem 7: 03/29/17 00:55 03/29/17 00:55 Labs: Short CBC 03/29/17 Range/Units 00:55 WBC 9.1 (4.3-11.1) K/mcL Hgb 11.2 L (11.5-15.4) g/dL Hct 36.4 (35.3-44.9) % Plt Count 271 (140-400) K/mcL Neutrophils # 6.7 (1.6-8.9) K/mcL BMP 03/29/17 00:55 Sodium 129 L Potassium 5.4 H Chloride 101 Carbon Dioxide 21 BUN 40 H Creatinine 2.33 H Glucose 177 H Calcium 9.3 Cardiac Enzymes 03/28/17 03/29/17 03/29/17 Range/Units 20:38 00:55 06:41 Troponin I 0.00 0.00 0.00 (0-0.03) ng/mL Liver Function 03/29/17 Range/Units 00:55 Total Bilirubin 0.3 (0.2-1.2) mg/dL AST 20 (5-34) Units/L ALT 29 (0-55) Units/L Alkaline Phosphatase 122 (38-126) Units/L Albumin 2.5 L (3.5-5.0) g/dL - ABG Interpretation ABG results: PT/INR, D-dimer PT 11.9 Seconds (9.4-12.1) 03/29/17 00:55 D-Dimer 872 ng/mLFEU (0-500) H 03/28/17 11:45 Consult Discharge Plan - Plan Referrals: Kate,Matteo Velez MD [Primary Care Provider] - <Felix Beauchamp H - Last Filed: 03/29/17 15:00> Date of Encounter: 03/29/17 - Constitutional Vitals: Temp Pulse Resp BP Pulse Ox 98.2 F 88 20 139/76 93 03/29/17 14:45 03/29/17 14:45 03/29/17 14:45 03/29/17 14:45 03/29/17 14:45 Internal Medicine: Result - Labs CBC & Chem 7: 03/29/17 00:55 03/29/17 00:55 Labs: Short CBC 03/29/17 Range/Units 00:55 WBC 9.1 (4.3-11.1) K/mcL Hgb 11.2 L (11.5-15.4) g/dL Hct 36.4 (35.3-44.9) % Plt Count 271 (140-400) K/mcL Neutrophils # 6.7 (1.6-8.9) K/mcL BMP 03/29/17 00:55 Sodium 129 L Potassium 5.4 H Chloride 101 Carbon Dioxide 21 BUN 40 H Creatinine 2.33 H Glucose 177 H Calcium 9.3 Cardiac Enzymes 03/28/17 03/29/17 03/29/17 Range/Units 20:38 00:55 06:41 Troponin I 0.00 0.00 0.00 (0-0.03) ng/mL Liver Function 03/29/17 Range/Units 00:55 Total Bilirubin 0.3 (0.2-1.2) mg/dL AST 20 (5-34) Units/L ALT 29 (0-55) Units/L Alkaline Phosphatase 122 (38-126) Units/L Albumin 2.5 L (3.5-5.0) g/dL - ABG Interpretation ABG results: PT/INR, D-dimer PT 11.9 Seconds (9.4-12.1) 03/29/17 00:55 D-Dimer 872 ng/mLFEU (0-500) H 03/28/17 11:45 - Attending Attestation discontinue Vancomycin due to ARF continue cefepime and start doxycycline IV I examined this patient and my medical decision-making was reviewed with the Resident Physician. I agree with the documented findings, disposition and treatment plan as described except to the extent set forth below.
[2017-03-29] MEDS: Doxycycline 100 MG in 0.9 % Sodium Chloride Mini Bag 100 ML IVPB SCH ×2 (14:42→23:55)
--- NOTE | 2017-03-29 17:17 | Podiatry Consult Note ---
Date of Encounter: 03/30/17 Time of Encounter: 16:00 Assessment and Plan (1) Hematoma Status: Acute Assessment: Linear blood filled bullae noted to left tibial area- this is consistent with markings of ANIKA wrap placed to leg. Does not appear infected. No pain with palpation. No warmth, drainage, edema. Plan: Should continue to heal with relief of offending pressure source DESTINY are consistent with adequate blood flow so I am not concerned it is necrotic however patient has limited ability to heal wounds Continue to limit pressure Elevated extremity Will drain if needed (2) Chronic ulcer of right foot Status: Acute Assessment: Wound debrided and assessed at bedside today All devitalized tissue removed using #15 blade. Patient tolerated well Wound measures [id number] with a area measuring 2.5cm in depth along the lateral edge of the calcaneus with probe to bone at this point. There is no drainage noted however there is a foul odor and cultures were obtained. MRI shows no evidence of abscess or bone involvement at this time Plan: Continue antibiotic therapy, cultures obtained at bedside BID dressing changes: Cleanse with saline, apply Maxsorb AG, ABD and kerlex NWB to RLE SW consult for patient requests for motorized scooter Qualifiers: Non-pressure ulcer stage: unspecified non-pressure ulcer stage Qualified Code(s): L97.519 - Non-pressure chronic ulcer of other part of right foot with unspecified severity (3) Cellulitis of right lower extremity Status: Acute Patient on Vancomycin and recephin- continue current therapy, monitor kidneys (4) Diabetes Status: Acute Patient needs tight glucose control and education to promote healing of ulceration Patient also needs smoking cessation education Qualifiers: Diabetes mellitus type: type 2 Diabetes mellitus complication status: with circulatory complication Diabetes mellitus complication detail: with other circulatory complications Diabetes mellitus terminal makeup operator insulin use: unspecified penitentiary insulin use status Qualified Code(s): E11.59 - Type 2 diabetes mellitus with other circulatory complications History of Present Illness HPI: Ms. Mccallum is a 51 year old female with PMH nonhealing RLE diabetic foot ulcer , states it has been ongoing with multiple treatments at [facility], patient states she sees them every 1-2 weeks with home health care dressing changes daily. Patient states that current dressings include mepilex AG, ABD and kerlex. Patient states she has chronic R-calcaneous osteomyelitis, also has a medical history significant for DM II, states her last known A1c was 10, and has a hx of smoking but states she quit a couple months ago but had a few last week. She presented with RLE pain, swelling and chills. Patient states 1 week ago, she developed chills and right lower extremity swelling and erythema. Patient also has area of left addison which is dark and concerning. She is unsure when it happened but states she frequently wears anika wraps to LLE for swelling. Patient states she is primarily non weight bearing and uses a wheelchair. States she would like a motorized scooter. Past Med Surg Social Fam HX - Past Medical History Medical history: coronary artery disease, diabetes, GERD, hyperlipidemia, hypertension, peripheral artery disease Psychiatric history: no psych history - Past Surgical History Surgical History: angioplasty/stent, orthopedic, other (right foot surgery x 3 ) , other - Social History Smoking Status: Current every day smoker Packs per day: 1 Smokeless Tobacco Status: No Alcohol use: none Drug use: none - Family History Mother Family Member Ethnicity: Non- Living Status: Still Living Hx Family Cardiac Disorders: Yes Hx Family Endocrine Disorder: Yes (type 2 diabetes) Father Family Member Ethnicity: Non- Living Status: Still Living Hx Family Endocrine Disorder: Yes (type 2 diabetes) Medications and Allergies Atorvastatin Calcium [Lipitor] 80 mg PO DAILY 08/21/16 [History] Clopidogrel [Plavix] 75 mg PO DAILY 08/21/16 [History] Ferrous Sulfate 325 mg PO BIDWM 08/21/16 [History] Gabapentin [Neurontin] 300 mg PO BID 08/21/16 [History] Insulin Glargine,Hum.rec.anlog [Lantus Solostar] 50 unit SQ QAM 08/21/16 [ History] Lisinopril [Zestril] 10 mg PO DAILY 08/21/16 [History] Magnesium Oxide [Magnesium] 400 mg PO DAILY 08/21/16 [History] Nitroglycerin [Nitrostat] 0.4 mg SL Q5M PRN 08/21/16 [History] Ranitidine HCl [Acid Residential Worker] 150 mg PO BID 08/21/16 [History] Sertraline [Zoloft] 100 mg PO DAILY 08/21/16 [History] hydroCHLOROthiazide [Hydrochlorothiazide] 25 mg PO DAILY 08/21/16 [History] Insulin Glargine,Hum.rec.anlog [Lantus Solostar] 40 unit SQ HS 03/28/17 [History ] Insulin LISPRO [HumaLOG] 0 units SQ TIDWM 03/28/17 [History] Metformin HCl [Glucophage] 1,000 mg PO BID 03/28/17 [History] Doxycycline 100 mg PO BID #12 capsule 03/31/17 [Rx] 3 Allergy/AdvReac Type Severity Reaction Status Date / Time Hydromorphone [From Dilaudid] Allergy Palpitation Verified 03/28/17 10:45 s heparin AdvReac See Verified 03/28/17 16:53 Comments All Systems Reviewed: A 10-system review of systems was performed and is negative for pertinent findings except as documented above in the HPI. Physical Exam - Constitutional Vitals: Temp Pulse Resp BP Pulse Ox 98.2 F 88 20 139/76 93 03/29/17 14:45 03/29/17 14:45 03/29/17 14:45 03/29/17 14:45 03/29/17 14:45 Exam: Patient is awake alert and oriented on arrival. Patients right foot wrapped in dry dressing on arrival, removed to assess Wound measures [id number] with a area measuring 2.5cm in depth along the lateral edge of the calcaneus with probe to bone at this point. There is very minimal serous drainage however there is a foul odor There is thick hyperkeratosis surrounding entire edge of wound, all devitalized hyperkeratotic skin was debrided at bedside to allow for healing and accurate assessment of wound. Tolerated well. no complications. Patient has loss of protective sensation no sensation to light or moderate touch bilaterally Pulses DP/PT are faint Cap refill < 3 seconds Muscle strength 5/5 and equal bilaterally. Patient states she does not ambulate on normal basis due to ulceration on foot. Patient states she uses a wheelchair. There is also a large bullae skin lesion to left mid addison This blister appears to be an intact hematoma. There is no signs of infection It does not appear necrotic It is in a horizontal linear pattern consistent with patients hx of wearing ANIKA wraps to legs Measures 5cmx1.5cm, soft fluctuant and intact without warmth, erythema, edema or drainage- patient is neuropathic so there is no associated pain. Results - Labs Result Diagrams: 03/31/17 05:18 03/31/17 05:18 Labs: Abnormal lab results Hgb 11.2 g/dL (11.5-15.4) L 03/29/17 00:55 MCH 26.7 pg (28.0-33.3) L 03/29/17 00:55 MCHC 30.8 g/dL (31.6-35.5) L 03/29/17 00:55 RDW 15.4 % (11.5-14.5) H 03/29/17 00:55 D-Dimer 872 ng/mLFEU (0-500) H 03/28/17 11:45 Sodium 129 mEq/L (136-145) L 03/29/17 00:55 Potassium 5.4 mEq/L (3.5-4.5) H 03/29/17 00:55 BUN 40 mg/dL (7-20) H 03/29/17 00:55 Creatinine 2.33 mg/dL (0.57-1.11) H 03/29/17 00:55 Est GFR ( Amer) 27 (> 60) L 03/29/17 00:55 Est GFR (Non-Af Amer) 22 (> 60) L 03/29/17 00:55 Glucose 177 mg/dL (70-99) H 03/29/17 00:55 POC Glucose 264 (58-89) H 03/29/17 16:26 Albumin 2.5 g/dL (3.5-5.0) L 03/29/17 00:55 Globulin 5.0 g/dL (2.4-3.5) H 03/29/17 00:55 Albumin/Globulin Ratio 0.5 (1.1-2.2) L 03/29/17 00:55 H & H 03/29/17 Range/Units 00:55 Hgb 11.2 L (11.5-15.4) g/dL Hct 36.4 (35.3-44.9) % All other labs normal. Consult Discharge Plan - Plan Additional Instructions: Take antibiotics (doxycycline) as prescribed Remain non-weight bearing off of right leg Follow instruction of wound care: BID dressing changes - Cleanse with saline, apply Maxsorb AG, ABD and kerlex Non-weight bearing to RLE Follow instruction of your home health care Follow-up with your PCP Return to the hospital if your symptoms worsen or return Referrals: Grant Luciano MD [Partnered Physician] - (WEB REQUEST MADE AND PATIENT AWARE) Matteo Love MD [Primary Care Provider] - (Patient aware she needs to call and make follow-up with PCP tomorrow) Prescriptions: Doxycycline 100 mg PO BID #12 capsule
[2017-03-29] MEDS: 0.9 % Sodium Chloride 1,000 ML IVC SCH (18:10)
--- NOTE | 2017-03-29 19:59 | Vascular/Endovasc Consult Note ---
Date of Encounter: 03/29/17 Time of Encounter: 17:45 Assessment and Plan (1) Chronic venous hypertension w/ulcer and inflammation involv both sides Status: Chronic The pathophysiology and natural history of venous disorders was discussed with the patient and all questions were answered. Her venous duplex was negative. Her ABIs are mildly abnormal. She has chronic stasis dermatitis with small ulcers. She also has a chronic right foot ulcer. She reports that she has undergone angiography at [facility] and was told that she has no significant stenosis. At this time, she will continue with local wound care. She will also undergo a venous reflux evaluation. (2) Tobacco abuse Status: Acute She was counseled regarding smoking cessation. She was informed that continued smoking will lead to progression of her atherosclerosis and may lead to heart attack, stroke, limb loss, organ failure or . (3) Hyperlipidemia Status: Chronic She was counseled regarding atheorsclerotic risk factor reduction. Qualifiers: Hyperlipidemia type: mixed hyperlipidemia Qualified Code(s): E78.2 - Mixed hyperlipidemia (4) Type 2 diabetes mellitus Status: Chronic Qualifiers: Diabetes mellitus complication status: with circulatory complication Diabetes mellitus complication detail: with other circulatory complications Diabetes mellitus usp insulin use: with usp use Qualified Code(s) : E11.59 - Type 2 diabetes mellitus with other circulatory complications; Z79.4 - correction (current) use of insulin (5) Chronic ulcer of right foot Status: Chronic Qualifiers: Non-pressure ulcer stage: unspecified non-pressure ulcer stage Qualified Code(s): L97.519 - Non-pressure chronic ulcer of other part of right foot with unspecified severity - History of Present Illness Consult date: 03/29/17 Requesting physician: Matteo Walker Consult reason: venous hypertension Chief complaint: leg pain and swelling History of present illness: Ms. Mccallum is a 51 year old female with ah istory of coronary artery disease, diabetes, hyperlipidemia and hypertension who has a chronic nonhealing right foot wound. She has had multiple procedures at [facility]. She presented with leg edema and pain. She developed a skin tear with bleeding in the left leg after aneudy wraps were placed. Due to her symptoms, vascular surgery was consulted for further evaluation. She denies any fevers or chills. She reports chronic bilateral lower extremity edema with occasional ulceration. She reports chronic right foot osteomyelitis. She denies chest pain or shortness of breath. Past Med Surg Social Fam HX - Past Medical History Medical history: coronary artery disease, diabetes, GERD, hyperlipidemia, hypertension, peripheral artery disease Psychiatric history: no psych history - Past Surgical History Surgical History: angioplasty/stent, orthopedic, other (right foot surgery x 3 ) , other - Social History Smoking Status: Current every day smoker Packs per day: 1 Smokeless Tobacco Status: No Alcohol use: none Drug use: none - Family History Mother Family Member Ethnicity: Non- Living Status: Still Living Hx Family Cardiac Disorders: Yes Hx Family Endocrine Disorder: Yes (type 2 diabetes) Father Family Member Ethnicity: Non- Living Status: Still Living Hx Family Endocrine Disorder: Yes (type 2 diabetes) Medications and Allergies Atorvastatin Calcium [Lipitor] 80 mg PO DAILY 08/21/16 [History] Clopidogrel [Plavix] 75 mg PO DAILY 08/21/16 [History] Ferrous Sulfate 325 mg PO BIDWM 08/21/16 [History] Gabapentin [Neurontin] 300 mg PO BID 08/21/16 [History] Insulin Glargine,Hum.rec.anlog [Lantus Solostar] 50 unit SQ QAM 08/21/16 [ History] Lisinopril [Zestril] 10 mg PO DAILY 08/21/16 [History] Magnesium Oxide [Magnesium] 400 mg PO DAILY 08/21/16 [History] Nitroglycerin [Nitrostat] 0.4 mg SL Q5M PRN 08/21/16 [History] Ranitidine HCl [Acid Research Mechanic] 150 mg PO BID 08/21/16 [History] Sertraline [Zoloft] 100 mg PO DAILY 08/21/16 [History] hydroCHLOROthiazide [Hydrochlorothiazide] 25 mg PO DAILY 08/21/16 [History] Insulin Glargine,Hum.rec.anlog [Lantus Solostar] 40 unit SQ HS 03/28/17 [History ] Insulin LISPRO [HumaLOG] 0 units SQ TIDWM 03/28/17 [History] Metformin HCl [Glucophage] 1,000 mg PO BID 03/28/17 [History] Doxycycline 100 mg PO BID #12 capsule 03/31/17 [Rx] 3 Allergy/AdvReac Type Severity Reaction Status Date / Time Hydromorphone [From Dilaudid] Allergy Palpitation Verified 03/28/17 10:45 s heparin AdvReac See Verified 03/28/17 16:53 Comments All Systems Review: A 10-system review of systems was performed and is negative for pertinent findings except as documented above in the HPI. - Constitutional Constitutional: no chills, no fever(s) Exam Vital Signs, Last 4 Hours Temp Pulse Resp BP Pulse Ox 03/29/17 19:45 98.1 F 71 17 93/51 98 General: Present: Conversant, No Apparent Distress HEENT: Present: Atraumatic, Pupils equal Neck: Absent: JVD, Lymphadenopathy, Left Carotid bruit, Right Carotid bruit Cardiac: Present: Reg Rate and Rhythm Lungs: Present: Normal Breath Sounds Neuro: Present: Alert and responsive, No focal deficits noted, Motor nerves grossly intact, Sensory nerves grossly intact Abdomen: Present: Soft, Non-tender. Absent: Masses Vascular: Present: Normal capillary refill, Edema (1+ edema, venous stasis dermatitis noted). Absent: Cyanosis Skin: Present: Wound/ulcer(s) (Chronic right foot wound, recently debrided, bandage in place), Other (superficial hematoma at left addison) Consult Discharge Plan - Plan Additional Instructions: Take antibiotics (doxycycline) as prescribed Remain non-weight bearing off of right leg Follow instruction of wound care: BID dressing changes - Cleanse with saline, apply Maxsorb AG, ABD and kerlex Non-weight bearing to RLE Follow instruction of your home health care Follow-up with your PCP Return to the hospital if your symptoms worsen or return Referrals: Grant Luciano MD [Partnered Physician] - (WEB REQUEST MADE AND PATIENT AWARE) Matteo Love MD [Primary Care Provider] - (Patient aware she needs to call and make follow-up with PCP tomorrow) Prescriptions: Doxycycline 100 mg PO BID #12 capsule
[2017-03-29] MEDS ORDERED: Dextrose Gel 15 GM PO PRN ×2 (20:34)
[2017-03-29] MEDS ORDERED: D5% in Water 1,000 ML IVC PRN (20:34)
[2017-03-29] MEDS ORDERED: *HR* Dextrose 50 % in Water (Syg) 50 ML SYRINGE IVP PRN (20:34)
[2017-03-29] MEDS: Insulin LISPRO 300 UNITS/3 ML VIAL SQ SCH (21:42)
[2017-03-30] MEDS ORDERED: Vancomycin 2,000 MG in D5% in Water 500 ML IVPB SCH
[2017-03-30 01:33] LABS: Hematocrit 32.4 % (35.3-44.9); Hemoglobin 9.8 g/dL (11.5-15.4); Mean Corpuscular HGB Conc 30.2 g/dL (31.6-35.5); Mean Corpuscular Hemoglobin 26.7 pg (28.0-33.3); Mean Corpuscular Volume 88.3 fL (83.0-100.0); Platelet Count 289 K/mcL (140-400); Red Blood Count 3.67 M/mcL (3.82-4.97); Red Cell Distribution Width 15.6 % (11.5-14.5)
[2017-03-30 01:49] LABS: Calcium 8.9 mg/dL (8.6-10.8); Potassium 5.8 mEq/L (3.5-4.5)
[2017-03-30] MEDS: Cefepime HCl 2,000 MG in D5% in Water (Mini-Bag+) 100 ML IVPB SCH (04:50)
[2017-03-30] MEDS: Gabapentin 300 MG CAPSULE PO SCH ×2 (09:30→20:59)
[2017-03-30] MEDS: Famotidine 20 MG TABLET PO SCH ×2 (09:30→20:59)
[2017-03-30] MEDS: Magnesium Oxide 400 MG TABLET PO SCH (09:31)
[2017-03-30] MEDS: Insulin LISPRO 300 UNITS/3 ML VIAL SQ SCH ×4 (09:31→21:00)
[2017-03-30] MEDS: Insulin DETEMIR 100 UNIT/ML X5UNITS SQ SCH ×2 (09:46→20:59)
[2017-03-30] MEDS: 0.9 % Sodium Chloride 1,000 ML IVC SCH ×2 (09:47→21:00)
--- NOTE | 2017-03-30 10:35 | Internal Med Progress Note ---
<Ulises Ochoa - Last Filed: 03/30/17 10:25> Date of Encounter: 03/30/17 Time of Encounter: 10:25 - Assessment and plan (1) Cellulitis Current Visit: Yes Status: Acute Assessment and plan: Hx of Chronic cellulitis on RLE 2/2 diabetic ulcer plantar aspect of heel. Continued pain and cellulitis on RLE. Recently started on Bactrim for Cellulitisa week ago. LLE new SKin changes worrisome Vanc d/c'd due to ARF Continue Cefepime and Doxycycline. DESTINY on RLE nl, DESTINY on LLE 0.93 mild disease. COntinue Plavix. Venous duplex showed "Normal bilateral lower extremity deep and superficial venous exam." Podiatry, vascular surgery and wound care on board. Per their recs patient has adequate blood flow and they are not concerned about the LLE and do not think there is infection or necrosis. Qualifiers: Site of cellulitis: extremity Site of cellulitis of extremity: lower extremity Laterality: right Qualified Code(s): L03.115 - Cellulitis of right lower limb (2) Chronic ulcer of right foot Current Visit: Yes Status: Acute Assessment and plan: Normally follows at [facility] Seen by our Podiatry yesterday who performed a bedside debirdement. They noted no drainage, but some foul odor so obtained a wound culture. Final report on culture is no growth. Continue dressing changes per Pediatry recs:"BID dressing changes: Cleanse with saline, apply Maxsorb AG, ABD and kerlex NWB to RLE" Qualifiers: Non-pressure ulcer stage: unspecified non-pressure ulcer stage Qualified Code(s): L97.519 - Non-pressure chronic ulcer of other part of right foot with unspecified severity (3) Osteomyelitis of right foot Current Visit: Yes Status: Acute Assessment and plan: Hx of Chronic Osteo of the R calcaneous. MRI shows no active Osteo Podiatry has been consulted. follow recs Wound care has been consulted follow recs. Qualifiers: Osteomyelitis type: other chronic Qualified Code(s): M86.671 - Other chronic osteomyelitis, right ankle and foot (4) Hyponatremia Current Visit: Yes Status: Acute Assessment and plan: -Chronic. -Asymptomatic -Continue IV fluids -continue to monitor (5) Diabetic neuropathy Current Visit: Yes Status: Acute Assessment and plan: -Chronic -Continue home gabapentin Qualifiers: Diabetes mellitus type: type 2 Diabetes mellitus complication detail: diabetic polyneuropathy Qualified Code(s): E11.42 - Type 2 diabetes mellitus with diabetic polyneuropathy (6) Diabetes Current Visit: Yes Status: Acute Assessment and plan: -Chronic -Continue home insulin -continue strict glucose control to promote wound healing Qualifiers: Diabetes mellitus type: type 2 Diabetes mellitus complication status: with circulatory complication Diabetes mellitus complication detail: with other circulatory complications Diabetes mellitus [facility] insulin use: unspecified traveling auditor insulin use status Qualified Code(s): E11.59 - Type 2 diabetes mellitus with other circulatory complications (7) Hyperlipidemia Current Visit: Yes Status: Acute Assessment and plan: -chronic -continue home statin Qualifiers: Hyperlipidemia type: unspecified Qualified Code(s): E78.5 - Hyperlipidemia , unspecified - Subjective Interval history: Patient is sleeping in chair upon entering the room. Patient wakes up to voice and is alert through out the encounter. She reports pain behind her R knee, but no issues with her LLE. - Constitutional Vitals: Temp Pulse Resp BP Pulse Ox 97.9 F 86 18 104/56 99 03/30/17 06:27 03/30/17 06:27 03/30/17 06:27 03/30/17 06:27 03/30/17 06:27 General appearance: Present: cooperative, A&O X 3, morbidly obese, pleasant, no acute distress, answers questions appropriately - Eye Eye exam: Present: sclera anicteric - ENT ENT exam: Present: mucous membranes moist - Respiratory Respiratory exam: Present: CTAB. Absent: rales, rhonchi, wheezes - Cardiovascular Cardiovascular exam: Present: RRR, +S1, +S2. Absent: diastolic murmur, gallop, rubs, systolic murmur - GI/Abdominal GI/Abdominal exam: Present: normal bowel sounds, soft. Absent: tenderness - Extremities Exam Extremities exam: Present: pedal edema, warm Additional comments: RLE tender behind the knee. LLE: nontender. - Neurological Exam Neurological exam: Present: alert, oriented X3. Absent: speech deficit - Psychiatric Psychiatric exam: Present: normal affect, normal mood - Skin Additional comments: LLE: Pitting edema, bullae, hematoma, eythema. RLE: Edema, erythem, Foot wrapped. Dressign c/d/i. Internal Medicine: Result - Labs CBC & Chem 7: 03/30/17 01:01 03/30/17 01:01 Labs: Short CBC 03/30/17 Range/Units 01:01 WBC 8.2 (4.3-11.1) K/mcL Hgb 9.8 L (11.5-15.4) g/dL Hct 32.4 L (35.3-44.9) % Plt Count 289 (140-400) K/mcL [facility] 03/30/17 01:01 Sodium 131 L Potassium 5.8 H Chloride 106 Carbon Dioxide 19 BUN 44 H Creatinine 1.95 H Glucose 160 H Calcium 8.9 - ABG Interpretation ABG results: PT/INR, D-dimer PT 11.9 Seconds (9.4-12.1) 03/29/17 00:55 D-Dimer 872 ng/mLFEU (0-500) H 03/28/17 11:45 Consult Discharge Plan - Plan Referrals: Matteo Love MD [Primary Care Provider] - <Felix Beauchamp H - Last Filed: 03/30/17 13:50> Date of Encounter: 03/30/17 - Constitutional Vitals: Temp Pulse Resp BP Pulse Ox 98.3 F 89 16 107/63 97 03/30/17 10:07 03/30/17 10:07 03/30/17 10:07 03/30/17 10:07 03/30/17 10:07 Internal Medicine: Result - Labs CBC & Chem 7: 03/30/17 01:01 03/30/17 01:01 Labs: Short CBC 03/30/17 Range/Units 01:01 WBC 8.2 (4.3-11.1) K/mcL Hgb 9.8 L (11.5-15.4) g/dL Hct 32.4 L (35.3-44.9) % Plt Count 289 (140-400) K/mcL [facility] 03/30/17 01:01 Sodium 131 L Potassium 5.8 H Chloride 106 Carbon Dioxide 19 BUN 44 H Creatinine 1.95 H Glucose 160 H Calcium 8.9 - ABG Interpretation ABG results: PT/INR, D-dimer PT 11.9 Seconds (9.4-12.1) 03/29/17 00:55 D-Dimer 872 ng/mLFEU (0-500) H 03/28/17 11:45 - Attending Attestation discontinue cefepime continue IV doxycycline I examined this patient and my medical decision-making was reviewed with the Resident Physician. I agree with the documented findings, disposition and treatment plan as described except to the extent set forth below.
[2017-03-30] MEDS: Doxycycline 100 MG in 0.9 % Sodium Chloride Mini Bag 100 ML IVPB SCH ×2 (11:51→23:40)
--- NOTE | 2017-03-30 21:48 | Vascular/Endovas Progress Note ---
Date of Encounter: 03/30/17 Time of Encounter: 12:00 - Assessment and plan (1) Chronic venous hypertension w/ulcer and inflammation involv both sides Current Visit: Yes Status: Acute The patient has chronic venous hypertension. Her venous duplex was negative. Her ABIs are mildly abnormal. She has chronic stasis dermatitis with small ulcers. She also has a chronic right foot ulcer. She reports that she has undergone angiography at [facility] and was told that she has no significant stenosis. At this time, she will continue with local wound care. Her reflux evaluation reveals bilateral lower extremity venous reflux. Leg elevation, compression and local wound care recommended. The patient may also benefit from saphenous vein ablation. She may follow-up in clinic after discharge for further evaluation. - Subjective Interval history: The patient is resting comfortably. She denies any leg pain. She denies fevers or chills. She denies chest pain or shortness of breath. Vital Signs, Last 4 Hours Temp Pulse Resp BP Pulse Ox 03/30/17 20:23 98.4 F 72 18 139/85 96 - Physical Examination General: Present: Conversant HEENT: Present: Pupils equal Cardiac: Present: Reg Rate and Rhythm Lungs: Present: Normal Breath Sounds Neuro: Present: Alert and responsive Vascular: Present: Normal capillary refill Abdomen: Present: Soft Skin: Present: Wound/ulcer(s) (superfical leg wounds with venous stasis dermatitis, edema present, ecchymosis noted, no bleeding) Results 03/30/17 01:01 03/30/17 01:01 Lab Results, Last 24 hours 03/30/17 03/30/17 01:01 01:01 WBC 8.2 Hgb 9.8 L Hct 32.4 L Plt Count 289 Sodium 131 L Potassium 5.8 H Chloride 106 Carbon Dioxide 19 BUN 44 H Creatinine 1.95 H Glucose 160 H Calcium 8.9 - Imaging / Other Tests Non Invasive Vascular Testing: report reviewed, image reviewed Consult Discharge Plan - Plan Referrals: Matteo Love MD [Primary Care Provider] -
[2017-03-31 05:34] LABS: Hemoglobin 10.3 g/dL (11.5-15.4); Immature Platelets 2.1 % (1.1-6.1); Mean Corpuscular HGB Conc 31.2 g/dL (31.6-35.5); Mean Corpuscular Hemoglobin 27.5 pg (28.0-33.3); Mean Corpuscular Volume 88.2 fL (83.0-100.0); Mean Platelet Volume 9.7 fL (9.4-12.4); Red Blood Count 3.74 M/mcL (3.82-4.97); Red Cell Distribution Width 15.7 % (11.5-14.5)
[2017-03-31 05:47] LABS: Calcium 8.7 mg/dL (8.6-10.8); Potassium 5.5 mEq/L (3.5-4.5)
[2017-03-31 07:00] VITALS: BP 126/76
[2017-03-31] MEDS: Insulin LISPRO 300 UNITS/3 ML VIAL SQ SCH (07:24)
--- NOTE | 2017-03-31 08:29 | Discharge Summary ---
<Teo Johns R - Last Filed: 03/31/17 08:27> Date of Encounter: 03/31/17 Time of Encounter: 08:27 - Discharge Diagnosis (1) Cellulitis Priority: Primary Status: Acute Qualifiers: Site of cellulitis: extremity Site of cellulitis of extremity: lower extremity Laterality: right Qualified Code(s): L03.115 - Cellulitis of right lower limb (2) Chronic ulcer of right foot Priority: Secondary Status: Acute Qualifiers: Non-pressure ulcer stage: unspecified non-pressure ulcer stage Qualified Code(s): L97.519 - Non-pressure chronic ulcer of other part of right foot with unspecified severity (3) Osteomyelitis of right foot Priority: Secondary Status: Acute Qualifiers: Osteomyelitis type: other chronic Qualified Code(s): M86.671 - Other chronic osteomyelitis, right ankle and foot (4) Type 2 diabetes mellitus Priority: Secondary Status: Acute Qualifiers: Diabetes mellitus complication status: with circulatory complication Diabetes mellitus complication detail: with other circulatory complications Diabetes mellitus watermaster insulin use: with mcc use Qualified Code(s) : E11.59 - Type 2 diabetes mellitus with other circulatory complications; Z79.4 - manager long term care (current) use of insulin (5) Diabetic neuropathy Priority: Secondary Status: Acute Qualifiers: Diabetes mellitus type: type 2 Diabetes mellitus complication detail: diabetic polyneuropathy Qualified Code(s): E11.42 - Type 2 diabetes mellitus with diabetic polyneuropathy (6) Hyponatremia Priority: Secondary Status: Acute (7) Hyperlipidemia Priority: Secondary Status: Acute Qualifiers: Hyperlipidemia type: unspecified Qualified Code(s): E78.5 - Hyperlipidemia , unspecified - Discharge Medications Prescriptions: Doxycycline 100 mg PO BID #12 capsule Home Medications: Atorvastatin Calcium [Lipitor] 80 mg PO DAILY 08/21/16 [History] Clopidogrel [Plavix] 75 mg PO DAILY 08/21/16 [History] Ferrous Sulfate 325 mg PO BIDWM 08/21/16 [History] Gabapentin [Neurontin] 300 mg PO BID 08/21/16 [History] Insulin Glargine,Hum.rec.anlog [Lantus Solostar] 50 unit SQ QAM 08/21/16 [ History] Lisinopril [Zestril] 10 mg PO DAILY 08/21/16 [History] Magnesium Oxide [Magnesium] 400 mg PO DAILY 08/21/16 [History] Nitroglycerin [Nitrostat] 0.4 mg SL Q5M PRN 08/21/16 [History] Ranitidine HCl [Acid Paddle Dyeing Machine Operator] 150 mg PO BID 08/21/16 [History] Sertraline [Zoloft] 100 mg PO DAILY 08/21/16 [History] hydroCHLOROthiazide [Hydrochlorothiazide] 25 mg PO DAILY 08/21/16 [History] Insulin Glargine,Hum.rec.anlog [Lantus Solostar] 40 unit SQ HS 03/28/17 [History ] Insulin LISPRO [HumaLOG] 0 units SQ TIDWM 03/28/17 [History] Metformin HCl [Glucophage] 1,000 mg PO BID 03/28/17 [History] Doxycycline 100 mg PO BID #12 capsule 03/31/17 [Rx] Allergies/Adverse Reactions: 3 Allergy/AdvReac Type Severity Reaction Status Date / Time Hydromorphone [From Dilaudid] Allergy Palpitation Verified 03/28/17 10:45 s heparin AdvReac See Verified 03/28/17 16:53 Comments Procedures/tests Complete & Pending: Procedures Performed prior 72 hours Category Date Time Status EV venous image w reflux LE BI Routine Y 03/30/17 19:54 Completed Date of admission: 03/28/17 18:39 Primary care physician: Matteo Love MD Consults: 03/28/17 18:45 Consult to Podiatry [CONS] Routine Consulting Provider: Podiatry [facility] Reason for Consult: DFU, known osteomyelitis Call Completed: No Discharging clinician: Teo Johns Anticipated date of discharge: 03/31/17 - Patient Status Disposition: Home Health Service Condition: Fair Functional capacity at discharge: uses cane/walker Overall status at discharge: patient is progressing back to baseline - Discharge Instructions Follow Up With: Matteo Love MD [Primary Care Provider] - Additional Instructions: Take antibiotics (doxycycline) as prescribed Remain non-weight bearing off of right leg Follow instruction of wound care: BID dressing changes - Cleanse with saline, apply Maxsorb AG, ABD and kerlex Non-weight bearing to RLE Follow instruction of your home health care Follow-up with your PCP Return to the hospital if your symptoms worsen or return - Diet and Activity Activity: increase activity as tolerated Diet: diabetic diet Interval History: Patient seen and examined. She is feeling well with no complaints. Her legs are still swollen, but the pain is decreased. Erythema mildly improving. Denies fevers, chills, chest pain, dyspnea, N/V/D, or dysuria. Hospital course: Ms. Mccallum is a 51 year old female with worsening swelling and erythema of B/L LE in the context of chronic cellulitis. She has a chronic right DFU with history of osteomyelitis and follows with wound care, recently started on Bactrim. She has new worsening of swelling and erythema with black bullae on her left LE. She underwent VQ scan and LE ultrasound with no evidence for PE or DVT. DESTINY of lower extremity were normal on right and 0.93 on left indicating mild vascular disease. MRI showed no evidence of active osteomyelitis. She is to discontinue using Bactrim as this was ineffective. Her erythema and swelling began to improve during hospitalization and she will be discharged on Doxycycline and follow-up with wound care. - Time Spent with Patient Total time spent providing and/or coordinating discharge services: - Constitutional Vitals: Temp Pulse Resp BP Pulse Ox 98.0 F 78 18 126/76 96 03/31/17 06:56 03/31/17 06:56 03/31/17 06:56 03/31/17 06:56 03/31/17 06:56 General appearance: Present: cooperative, A&O X 3, morbidly obese, pleasant, no acute distress, answers questions appropriately - Head Head exam: Present: atraumatic, normocephalic - Eye Eye exam: Present: conjuntiva pink, sclera anicteric - Respiratory Respiratory exam: Present: CTAB. Absent: rales, rhonchi, wheezes - Cardiovascular Cardiovascular exam: Present: RRR, +S1, +S2. Absent: diastolic murmur, systolic murmur - GI/Abdominal GI/Abdominal exam: Present: normal bowel sounds, soft. Absent: distended, rigid , tenderness - Extremities Exam Additional comments: LLE: pitting edema, bullae, hematoma, erythema improved compared to yesterday RLE: pitting edema, erythema improved compared to yesterday - Neurological Exam Neurological exam: Present: alert, CN II-XII intact, oriented X3, no focal deficits <Felix Beauchamp - Last Filed: 03/31/17 10:15> Date of Encounter: 03/31/17 Procedures/tests Complete & Pending: Procedures Performed prior 72 hours Category Date Time Status EV venous image w reflux LE BI Routine Y 03/30/17 19:54 Completed Date of admission: 03/28/17 18:39 Primary care physician: Matteo Love MD Consults: 03/28/17 18:45 Consult to Podiatry [CONS] Routine Consulting Provider: Podiatry [facility] Reason for Consult: DFU, known osteomyelitis Call Completed: No Hospital course: Ms. Mccallum is a 51 year old female - Time Spent with Patient Total time spent providing and/or coordinating discharge services: - Constitutional Vitals: Temp Pulse Resp BP Pulse Ox 98.0 F 78 18 126/76 96 03/31/17 06:56 03/31/17 06:56 03/31/17 06:56 03/31/17 06:56 03/31/17 06:56 - Attending Attestation The patient was given the option to stay an additional day but prefers to be discharged on doxycycline that she has been getting considerably better. Time spent with discharge: 40 minutes I examined this patient and my medical decision-making was reviewed with the Resident Physician. I agree with the documented findings, disposition and treatment plan as described except to the extent set forth below.
[2017-03-31] MEDS: Insulin DETEMIR 100 UNIT/ML X5UNITS SQ SCH (08:58)
[2017-03-31] MEDS: Famotidine 20 MG TABLET PO SCH (08:59)
[2017-03-31] MEDS: Gabapentin 300 MG CAPSULE PO SCH (08:59)
[2017-03-31] MEDS: Magnesium Oxide 400 MG TABLET PO SCH (08:59)
--- NOTE | 2017-03-31 09:03 | Physician Discharge Referral ---
<Teo Johns R - Last Filed: 03/31/17 09:01> Home Health/Hosp Referral Info Transfer to: Home Health Provider in Charge Post Discharge: PCP - Diagnosis (1) Cellulitis Priority: Primary Status: Acute (2) Chronic ulcer of right foot Priority: Secondary Status: Acute (3) Osteomyelitis of right foot Priority: Secondary Status: Acute (4) Type 2 diabetes mellitus Priority: Secondary Status: Acute (5) Diabetic neuropathy Priority: Secondary Status: Acute (6) Hyponatremia Priority: Secondary Status: Acute (7) Hyperlipidemia Priority: Secondary Status: Acute - Respiratory Orders Smoking Cessation: Smoking cessation has been advised. For more information, call the [place] Tobacco Quit Line at 9-073-ZMWU-NOW. - Dressing/Wound Care Site: Right Foot Type of Dressing/Treatments w/Frequency: BID dressing changes: Cleanse with saline, apply Maxsorb AG, ABD and kerlex NWB to RLE - Diet/Nutrition Diet/Nutrition Orders: Regular - Activity Activity Orders: Walker - Services Needed Following services are medically necessary services: Nursing, Home Health Aide - Transfer Medications Prescriptions: Doxycycline 100 mg PO BID #12 capsule Home Medications: Atorvastatin Calcium [Lipitor] 80 mg PO DAILY 08/21/16 [History] Clopidogrel [Plavix] 75 mg PO DAILY 08/21/16 [History] Ferrous Sulfate 325 mg PO BIDWM 08/21/16 [History] Gabapentin [Neurontin] 300 mg PO BID 08/21/16 [History] Insulin Glargine,Hum.rec.anlog [Lantus Solostar] 50 unit SQ QAM 08/21/16 [ History] Lisinopril [Zestril] 10 mg PO DAILY 08/21/16 [History] Magnesium Oxide [Magnesium] 400 mg PO DAILY 08/21/16 [History] Nitroglycerin [Nitrostat] 0.4 mg SL Q5M PRN 08/21/16 [History] Ranitidine HCl [Acid Grant Officer] 150 mg PO BID 08/21/16 [History] Sertraline [Zoloft] 100 mg PO DAILY 08/21/16 [History] hydroCHLOROthiazide [Hydrochlorothiazide] 25 mg PO DAILY 08/21/16 [History] Insulin Glargine,Hum.rec.anlog [Lantus Solostar] 40 unit SQ HS 03/28/17 [History ] Insulin LISPRO [HumaLOG] 0 units SQ TIDWM 03/28/17 [History] Metformin HCl [Glucophage] 1,000 mg PO BID 03/28/17 [History] Doxycycline 100 mg PO BID #12 capsule 03/31/17 [Rx] Allergies/Adverse Reactions: 3 Allergy/AdvReac Type Severity Reaction Status Date / Time Hydromorphone [From Dilaudid] Allergy Palpitation Verified 03/28/17 10:45 s heparin AdvReac See Verified 03/28/17 16:53 Comments Certification: Further, I certify that my clinical findings support that this patient is homebound (i.e. absences from home require considerable and taxing effort and are for medical reasons or amish services or infrequently or short duration when for other reasons) because: Homebound Reason: Leaving home requires considerable and taxing effort due to condition Attestation: My signature below is to certify that this patient is under my care and that I, or nurse practitioner, or a physician's assisted living assistant working with me, has a face-to -face encounter with this patient. <Felix Beauchamp - Last Filed: 03/31/17 10:15> - Respiratory Orders Smoking Cessation: Smoking cessation has been advised. For more information, call the [place] Tobacco Quit Line at 0-446-ISNX-NOW. Certification: Further, I certify that my clinical findings support that this patient is homebound (i.e. absences from home require considerable and taxing effort and are for medical reasons or amish services or infrequently or short duration when for other reasons) because: Attestation: My signature below is to certify that this patient is under my care and that I, or nurse practitioner, or a physician's assisted living assistant working with me, has a face-to -face encounter with this patient.
[2017-03-31] MEDS ORDERED: Aminoglycoside Consult 1 EACH MC ONE (10:59)
== END 2017-03-31 11:00 | disposition home health service (06) | DRG 380 ==
LOC: 3NENU 10:39 → EMEROO 10:39 → 3NENU 16:34 → SUATTDRO 18:39
PROVIDERS: ADMIT Family Medicine; ATTEND Internal Medicine

== ENCOUNTER 2017-12-29 20:45 | Inpatient (IN) ==
--- NOTE | 2017-12-29 21:00 | Emergency Department Note ---
Disposition Clinical Impression: Cellulitis of right lower extremity Chronic osteomyelitis involving lower leg Qualifiers: Laterality: right Qualified Code(s): M86.661 - Other chronic osteomyelitis, right tibia and fibula Sepsis Qualifiers: Sepsis type: sepsis due to unspecified organism Qualified Code(s): A41.9 - Sepsis, unspecified organism Disposition: Admitted As Inpatient Condition: Good Time of Disposition: 23:34 Fever HPI - General Chief Complaint: ED Fever Stated Complaint: Fever / Wound Vac pulling blood Time Seen by Provider: 12/29/17 20:57 Source: patient Mode of arrival: ambulatory Limitations: no limitations Nursing Notes Reviewed: Yes Vital Signs Reviewed: Yes - History of Present Illness HPI Narrative: Patient is a 52-year-old female with past medical history of diabetes, hypertension, chronic lower extremity diabetic neuropathy, PAD, chronic right lower extremity ankle and foot wound. She follows with Dr. Walker for chronic large wounds, recently had a wound VAC placed likely 2-3 weeks ago on the medial aspect of her right foot and ankle. She noticed today that she was having subjective fever and chills, noticed blood draining from her wound VAC which is unusual for her. Due to chronic neuropathy, she is unable to feel much pain but she does note that the redness of her lower extremity has worsened than usual. Denies any other nausea, vomiting, diarrhea, abdominal pain, chest pain, shortness of breath. She does admit to a dry cough. Denies any productive sputum. - Related Data Home Medications Medication Instructions Recorded Confirmed Atorvastatin Calcium [Lipitor] 80 mg PO DAILY 08/21/16 12/30/17 Clopidogrel [Plavix] 75 mg PO DAILY 08/21/16 12/30/17 Ferrous Sulfate 325 mg PO BIDWM 08/21/16 12/30/17 Gabapentin [Neurontin] 300 mg PO BID 08/21/16 12/30/17 Lisinopril [Zestril] 10 mg PO DAILY 08/21/16 12/30/17 Magnesium Oxide [Magnesium] 400 mg PO DAILY 08/21/16 12/30/17 Nitroglycerin [Nitrostat] 0.4 mg SL Q5M PRN 08/21/16 12/30/17 Ranitidine HCl [Acid Non Cdl Driver] 150 mg PO BID 08/21/16 12/30/17 Sertraline [Zoloft] 100 mg PO DAILY 08/21/16 12/30/17 hydroCHLOROthiazide 25 mg PO DAILY 08/21/16 12/30/17 [Hydrochlorothiazide] Insulin Glargine,Hum.rec.anlog 60 unit SQ DAILY 03/28/17 12/30/17 [Lantus Solostar] Metformin HCl [Glucophage] 1,000 mg PO BID 03/28/17 12/30/17 Insulin ASPART [NovoLOG] 0 unit SQ TIDWM 06/19/17 12/30/17 Sennosides [Senna] 8.6 mg PO DAILY 06/19/17 12/30/17 Allergies Allergy/AdvReac Type Severity Reaction Status Date / Time Hydromorphone [From Dilaudid] Allergy Palpitation Verified 03/28/17 10:45 s heparin AdvReac See Verified 03/28/17 16:53 Comments All systems ED: reviewed and negative except as stated. Constitutional: Reports: fever, chills Cardiovascular: Denies: chest pain Respiratory: Reports: cough. Denies: dyspnea, wheezes Gastrointestinal: Denies: abdominal pain, nausea, vomiting, diarrhea, constipation Genitourinary: Denies: urgency, dysuria Musculoskeletal: Reports: arthralgia, myalgia Integumentary: Reports: rash Neurological: Reports: numbness (Chronic lower extremity numbness due to diabetic neuropathy). Denies: headache, weakness Fever PMH - Past Medical History Medical history: Reports: coronary artery disease, diabetes, GERD, hyperlipidemia, hypertension, peripheral artery disease, renal disease Surgical history: Reports: angioplasty/stent, orthopedic, other, other Psychiatric history: Reports: no psych history CLOSET ORGANIZER history: Reports: no CLOSET ORGANIZER history - Social History Smoking Status: Current every day smoker Alcohol use: Reports: none Drug use: Reports: none Physical Exam - General Limitations: no limitations General appearance: alert, in no apparent distress - Head Head exam: atraumatic, normocephalic, normal inspection - Eye Eye exam: Present: normal appearance, PERRL, EOMI - ENT ENT exam: normal exam, normal oropharynx, mucous membranes moist - Neck Neck exam: Present: normal inspection, full ROM, trachea midline - Chest Chest inspection: Present: normal inspection, symmetric chest wall rise - Respiratory Respiratory exam: Present: normal lung sounds bilaterally - Cardiovascular Cardiovascular exam: Present: regular rate, normal rhythm, normal heart sounds - Abdominal Exam Abdominal exam: Present: soft, Non-Tender. Absent: tenderness, distention, guarding, rebound, rigidity - Extremities Exam Extremities exam: Present: other (Erythema from mid calf down to distal toes, wound VAC present on medial aspect of right foot and right ankle. Small amount of blood drainage into wound VAC. No obvious pus drainage. Significant edema of the right foot. Chronic numbness of the entire right foot up to mid calf due to diabetic neuropathy.) - Neurological Exam Neurological exam: Present: alert, oriented X3 - Expanded Neurological Exam Motor strength - LUE: 5/5 Motor strength - RUE: 5/5 Motor strength - LLE: 5/5 Motor strength - RLE: 5/5 Sensory exam upper extremity: light touch: Normal Sensory exam lower extremity: light touch: Abnormal Right (chronic diabetic neuropathy of foot and ankle in stocking formation) - Psychiatric Psychiatric exam: Present: normal affect, normal mood - Skin Skin exam: Present: warm, dry, intact, normal color Course Course Narrative: Due to tachycardia, fever, source of infection of right lower extremity cellulitis/wound, patient meet sepsis criteria. Sepsis workup ordered. Symptoms Zosyn ordered along with fluids. Lactic and cultures have also been drawn. We will obtain x-rays of the right foot and then will call Dr. Walker, patient will need to be admitted for IV antibiotics. Also obtain chest x-ray to assess due to history of cough. 23:32 patient has elevated white blood cell count, and creatinine are baseline. Otherwise, no major abnormalities from previous labs. X-rays show a stable osteomyelitis that is chronic for the patient. I talked with Dr. Fry , discussed patient presentation, vitals, imaging and lab results. We discussed that I started the patient on clindamycin and Zosyn. He was okay with these antibiotic choices, did not recommend any other acute intervention at this time. He will act as a consult and see the patient in the morning. Patient was accepted to medicine by Dr. Dietz Foot X-Ray 12/29/17 21:06 IMPRESSION: Stable appearance of the calcaneus with findings suspicious for chronic osteomyelitis. Large soft tissue ulceration underlying the calcaneus again noted with findings along the mid and forefoot concerning for cellulitis. D/ / 12/29/2017 22:28:33 Milind Odell MD / javier Interpreting Provider: Milind Odell MD Ankle X-Ray 12/29/17 21:13 IMPRESSION: Stable appearance of the calcaneus with findings suspicious for chronic osteomyelitis. Large soft tissue ulceration underlying the calcaneus again noted with findings along the mid and forefoot concerning for cellulitis. D/ / 12/29/2017 22:28:33 Milind Odell MD / javier Interpreting Provider: Milind Odell MD Chest X-Ray 12/29/17 21:23 IMPRESSION: No definite acute cardiopulmonary process. D/ / Milind Odell MD / Milind Odell MD Interpreting Provider: Milind Odell MD Vital Signs Temperature 100.4 F H 12/29/17 20:47 Pulse Rate 102 12/29/17 20:47 Respiratory Rate 20 12/29/17 20:47 Blood Pressure 197/80 12/29/17 20:47 O2 Sat by Pulse Oximetry 95 12/29/17 20:47 Temperature 98.4 F 12/30/17 03:16 Pulse Rate 83 12/30/17 03:16 Respiratory Rate 16 12/30/17 03:16 Blood Pressure 146/76 12/30/17 03:16 O2 Sat by Pulse Oximetry 95 12/30/17 03:16 Oxygen Delivery Oxygen Delivery Nasal Cannula Fever - MDM Narrative Medical decision making narrative: Due to tachycardia, fever, source of infection of right lower extremity cellulitis/wound, patient meet sepsis criteria. Sepsis workup ordered. Symptoms Zosyn ordered along with fluids. Lactic and cultures have also been drawn. We will obtain x-rays of the right foot and then will call Dr. Walker, patient will need to be admitted for IV antibiotics. Also obtain chest x-ray to assess due to history of cough. 23:32 patient has elevated white blood cell count, and creatinine are baseline. Otherwise, no major abnormalities from previous labs. X-rays show a stable osteomyelitis that is chronic for the patient. I talked with Dr. Fry , discussed patient presentation, vitals, imaging and lab results. We discussed that I started the patient on clindamycin and Zosyn. He was okay with these antibiotic choices, did not recommend any other acute intervention at this time. He will act as a consult and see the patient in the morning. Patient was accepted to medicine by Dr. Dietz - Medical Records Medical records reviewed: Yes I reviewed the patient's medical records. - Lab Data Lab results reviewed: Yes I reviewed the patient's lab results. Result diagrams: 12/30/17 01:12 12/30/17 01:12 Lab Results 12/29/17 12/29/17 12/29/17 Range/Units 21:32 21:32 21:32 WBC 13.7 H (4.3-11.1) K/mcL RBC 3.95 (3.82-4.97) M/mcL Hgb 10.8 L (11.5-15.4) g/dL Hct 33.3 L (35.3-44.9) % MCV 84.3 (83.0-100.0) fL MCH 27.3 L (28.0-33.3) pg MCHC 32.4 (31.6-35.5) g/dL RDW 15.4 H (11.5-14.5) % Plt Count 274 (140-400) K/mcL MPV 9.8 (9.4-12.4) fL Immature Gran % 0.4 (0-4) % Seg Neutrophils % 91.9 % Lymphocytes % 2.5 % Monocytes % 4.7 % Eosinophils % 0.3 % Basophils % 0.2 % Neutrophils # 12.6 H (1.6-8.9) K/mcL Lymphocytes # 0.3 L (0.6-4.6) K/mcL Monocytes # 0.6 (0.0-1.3) K/mcL Eosinophils # 0.0 (0.0-0.6) K/mcL Basophils # 0.0 (0.0-0.2) K/mcL Nucleated RBCs/100 WBC 0.1 H (0) /100 WBC PT 12.7 H (9.4-12.1) Seconds INR 1.2 APTT 29.3 (26.0-36.0) Seconds Sodium 127 L (136-145) mEq/L Potassium 4.3 (3.5-5.1) mEq/L Chloride 98 (98-107) mEq/L Carbon Dioxide 17 L (23-29) mEq/L BUN 27 H (6-20) mg/dL Creatinine 1.52 H (0.60-1.20) mg/dL Est GFR ( Amer) 43 L (> 60) Est GFR (Non-Af Amer) 36 L (> 60) BUN/Creatinine Ratio 18 (6-26) Glucose 407 H (70-105) mg/dL Calculated Osmolality 286 (280-300) Lactic Acid (0.5-2.2) mmol/L Calcium 8.5 L (8.6-10.3) mg/dL Phosphorus 2.8 (2.7-4.5) mg/dL Magnesium 1.8 (1.6-2.6) mg/dL Total Bilirubin 0.4 (0.3-1.0) mg/dL Direct Bilirubin 0.2 (0.0-0.2) mg/dL Indirect Bilirubin 0.2 (0.0-1.2) mg/dL AST 13 (13-39) Units/L ALT 16 (7-52) Units/L Alkaline Phosphatase 127 H (34-104) Units/L Troponin I < 0.03 (< 0.04) ng/mL Serum Total Protein 7.1 (6.4-8.9) g/dL Albumin 3.3 L (3.5-5.7) g/dL Globulin 3.8 H (2.4-3.5) g/dL Albumin/Globulin Ratio 0.9 L (1.1-2.2) 12/29/18 Range/Units 21:32 WBC (4.3-11.1) K/mcL RBC (3.82-4.97) M/mcL Hgb (11.5-15.4) g/dL Hct (35.3-44.9) % MCV (83.0-100.0) fL MCH (28.0-33.3) pg MCHC (31.6-35.5) g/dL RDW (11.5-14.5) % Plt Count (140-400) K/mcL MPV (9.4-12.4) fL Immature Gran % (0-4) % Seg Neutrophils % % Lymphocytes % % Monocytes % % Eosinophils % % Basophils % % Neutrophils # (1.6-8.9) K/mcL Lymphocytes # (0.6-4.6) K/mcL Monocytes # (0.0-1.3) K/mcL Eosinophils # (0.0-0.6) K/mcL Basophils # (0.0-0.2) K/mcL Nucleated RBCs/100 WBC (0) /100 WBC PT (9.4-12.1) Seconds INR APTT (26.0-36.0) Seconds Sodium (136-145) mEq/L Potassium (3.5-5.1) mEq/L Chloride (98-107) mEq/L Carbon Dioxide (23-29) mEq/L BUN (6-20) mg/dL Creatinine (0.60-1.20) mg/dL Est GFR ( Amer) (> 60) Est GFR (Non-Af Amer) (> 60) BUN/Creatinine Ratio (6-26) Glucose (70-105) mg/dL Calculated Osmolality (280-300) Lactic Acid 3.0 H (0.5-2.2) mmol/L Calcium (8.6-10.3) mg/dL Phosphorus (2.7-4.5) mg/dL Magnesium (1.6-2.6) mg/dL Total Bilirubin (0.3-1.0) mg/dL Direct Bilirubin (0.0-0.2) mg/dL Indirect Bilirubin (0.0-1.2) mg/dL AST (13-39) Units/L ALT (7-52) Units/L Alkaline Phosphatase (34-104) Units/L Troponin I (< 0.04) ng/mL Serum Total Protein (6.4-8.9) g/dL Albumin (3.5-5.7) g/dL Globulin (2.4-3.5) g/dL Albumin/Globulin Ratio (1.1-2.2) - Radiology Data Radiology results reviewed: Yes I reviewed the patient's radiology results. Foot X-Ray 12/29/17 21:06 IMPRESSION: Stable appearance of the calcaneus with findings suspicious for chronic osteomyelitis. Large soft tissue ulceration underlying the calcaneus again noted with findings along the mid and forefoot concerning for cellulitis. D/ / 12/29/2017 22:28:33 Milind Odell MD / javier Interpreting Provider: Milind Odell MD Ankle X-Ray 12/29/17 21:13 IMPRESSION: Stable appearance of the calcaneus with findings suspicious for chronic osteomyelitis. Large soft tissue ulceration underlying the calcaneus again noted with findings along the mid and forefoot concerning for cellulitis. D/ / 12/29/2017 22:28:33 Milind Odell MD / javier Interpreting Provider: Milind Odell MD Chest X-Ray 12/29/17 21:23 IMPRESSION: No definite acute cardiopulmonary process. D/ / Milind Odell MD / Milind Odell MD Interpreting Provider: Milind Odell MD - EKG Data EKG attestation: Yes I reviewed and interpreted this EKG. EKG results narrative: 12/29/2017 at 21:20. Sinus tachycardia. Rate 105. MD 148. QRS 74. QTC 358. Left axis deviation. No acute ST elevation or depression. S.B.A.R. - S.B.A.R. Situation: Demographics, MOA Background: Presenting Complaint, Relevant PMH, Meds, & Allergies Assessment: Vital Signs, Course and respsone to treatment, Exam Concerns, Patient/Family Expectation, Pertinant Lab Results Recommendation: Barrier(s) to disposition, Recommendation based on pending studies, treatments, or consults S.B.A.R. Report Given to: Dr. Dietz Attestation Statement - Attestation Attestation: I examined this patient and my medical decision-making was reviewed with the Resident Physician. I agree with the documented findings, disposition and treatment plan as described except to the extent set forth below. Possible sepsis related to 1. Patient has wound VAC on. We will start broad-spectrum antibiotics and admit for podiatry consult and treatment of sepsis.
[2017-12-29] MEDS ORDERED: Piperacillin/Tazobactam 3.375 GM in 0.9 % Sodium Chloride Mini Bag 100 ML IVPB ONE (21:19)
[2017-12-29 21:44] LABS: Basophils % 0.2 %; Eosinophils % 0.3 %; Hematocrit 33.3 % (35.3-44.9); Hemoglobin 10.8 g/dL (11.5-15.4); Immature Granulocytes % 0.4 % (0-4); Lymphocytes # 0.3 K/mcL (0.6-4.6); Lymphocytes % 2.5 %; Mean Corpuscular HGB Conc 32.4 g/dL (31.6-35.5); Mean Corpuscular Hemoglobin 27.3 pg (28.0-33.3); Mean Corpuscular Volume 84.3 fL (83.0-100.0); Mean Platelet Volume 9.8 fL (9.4-12.4); Monocytes # 0.6 K/mcL (0.0-1.3); Monocytes % 4.7 %; Neutrophils # 12.6 K/mcL (1.6-8.9); Nucleated Red Blood Cells 0.1 /100 WBC (0); Platelet Count 274 K/mcL (140-400); Red Blood Count 3.95 M/mcL (3.82-4.97); Red Cell Distribution Width 15.4 % (11.5-14.5); Segmented Neutrophils % 91.9 %
[2017-12-29 21:48] LABS: INR 1.2; Prothrombin Time 12.7 Seconds (9.4-12.1)
[2017-12-29 21:51] LABS: Activated Partial Thrombo Time 29.3 Seconds (26.0-36.0)
[2017-12-29 22:06] LABS: Alanine Aminotransferase 16 Units/L (7-52); Albumin 3.3 g/dL (3.5-5.7); Albumin/Globulin Ratio 0.9 (1.1-2.2); Alkaline Phosphatase 127 Units/L (34-104); Aspartate Amino Transferase 13 Units/L (13-39); BUN/Creatinine Ratio 18 (6-26); Bilirubin,Direct 0.2 mg/dL (0.0-0.2); Bilirubin,Indirect 0.2 mg/dL (0.0-1.2); Bilirubin,Total 0.4 mg/dL (0.3-1.0); Blood Urea Nitrogen 27 mg/dL (6-20); Calcium 8.5 mg/dL (8.6-10.3); Carbon Dioxide 17 mEq/L (23-29); Chloride 98 mEq/L (98-107); Globulin 3.8 g/dL (2.4-3.5); Glucose 407 mg/dL (70-105); Magnesium 1.8 mg/dL (1.6-2.6); Osmolality,Calculated 286 (280-300); Phosphorous 2.8 mg/dL (2.7-4.5); Potassium 4.3 mEq/L (3.5-5.1); Sodium 127 mEq/L (136-145); Total Protein 7.1 g/dL (6.4-8.9); Troponin I < 0.03 ng/mL (< 0.04); eGFR For African Americans 43 (> 60); eGFR For Non-African Americans 36 (> 60)
[2017-12-29] MEDS: 0.9 % Sodium Chloride 1,000 ML IVC SCH ×2 (22:13→23:08)
[2017-12-29] MEDS ORDERED: Naloxone 0.4 MG/ML INJ IVP PRN (23:42)
--- NOTE | 2017-12-29 23:42 | Internal Med History&Physical ---
Date of Encounter: 12/29/17 Time of Encounter: 23:41 Internal Medicine - H&P: HPI Chief complaint: Fever Admitted From: Emergency Dept Plans for Post Hospital Care: Home History of present illness: Ms. Mccallum is a 52 year old female with PMH nonhealing RLE diabetic foot ulcer , chronic R-calcaneous osteomyelitis, DM II, HTN , peripheral neuropathy, PVD who presents with fever and drainage from her wound VAC on the right lower extremity that was recently placed by Dr. Walker from podiatry in November. She sees podiatry for multiple other ones as well in the lower extremities of different stages. The patient has felt subjective fevers and chills and noticed bloody drainage from her wound VAC. She is unable to feel pain due to her chronic neuropathy but she has noticed redness of the right lower extremity. The patient denies any headache, or vision, nausea, vomiting, chest pain, shortness of breath, abdominal pain, diarrhea, constipation, urinary symptoms, or neurological symptoms. In the ED laboratory workup showed elevated WBC count. Hemoglobin of 10.8. Sodium 127. Creatinine 1.5 to which is consistent with elevated creatinine that she has had over the last year and a half. Glucose was 407 and lactic acidosis 3.0. Imaging studies were done by x-ray of the lower extremities that showed stable appearance of the calcaneus with findings suspicious for chronic osteomyelitis. There was large soft tissue ulceration underlying the calcaneus concerning for cellulitis. The patient was given vancomycin and Zosyn and podiatry was consulted from the ED and recommended admission and no further imaging and they were agreeable to the antibiotics given. They will see the patient in the morning. The patient was also given IV fluids per sepsis protocol. The patient's MAXIMUM TEMPERATURE was 100.4 and her blood pressure was elevated at 197/80 which came down to 169/ 83 later in the ED. Past Med Surg Social Fam HX - Past Medical History Medical history: coronary artery disease, diabetes, GERD, hyperlipidemia, hypertension, peripheral artery disease, renal disease Psychiatric history: no psych history - Past Surgical History Surgical History: angioplasty/stent, orthopedic, other, other - Social History Smoking Status: Current every day smoker Smokeless Tobacco Status: No Alcohol use: none Drug use: none - Family History Mother Family Member Ethnicity: Non- Living Status: Still Living Hx Family Cardiac Disorders: Yes Hx Family Endocrine Disorder: Yes (type 2 diabetes) Father Family Member Ethnicity: Non- Living Status: Still Living Hx Family Endocrine Disorder: Yes (type 2 diabetes) Internal Medicine - H&P: Meds Atorvastatin Calcium [Lipitor] 80 mg PO DAILY 08/21/16 [History] Clopidogrel [Plavix] 75 mg PO DAILY 08/21/16 [History] Ferrous Sulfate 325 mg PO BIDWM 08/21/16 [History] Gabapentin [Neurontin] 300 mg PO BID 08/21/16 [History] Lisinopril [Zestril] 10 mg PO DAILY 08/21/16 [History] Magnesium Oxide [Magnesium] 400 mg PO DAILY 08/21/16 [History] Nitroglycerin [Nitrostat] 0.4 mg SL Q5M PRN 08/21/16 [History] Ranitidine HCl [Acid Group Sales Coordinator] 150 mg PO BID 08/21/16 [History] Sertraline [Zoloft] 100 mg PO DAILY 08/21/16 [History] hydroCHLOROthiazide [Hydrochlorothiazide] 25 mg PO DAILY 08/21/16 [History] Insulin Glargine,Hum.rec.anlog [Lantus Solostar] 60 unit SQ DAILY 03/28/17 [ History] Metformin HCl [Glucophage] 1,000 mg PO BID 03/28/17 [History] Insulin ASPART [NovoLOG] 0 unit SQ TIDWM 06/19/17 [History] Sennosides [Senna] 8.6 mg PO DAILY 06/19/17 [History] 3 Allergy/AdvReac Type Severity Reaction Status Date / Time Hydromorphone [From Dilaudid] Allergy Palpitation Verified 03/28/17 10:45 s heparin AdvReac See Verified 03/28/17 16:53 Comments All Systems PM: A 10-system review of systems was performed and is negative for pertinent findings except as documented above in the HPI. Review of systems: All systems reviewed are negative except for as mentioned above - Constitutional Vitals: Temp Pulse Resp BP Pulse Ox 100.4 F H 94 20 169/83 94 12/29/17 20:47 12/29/17 23:09 12/29/17 23:09 12/29/17 23:09 12/29/17 23:09 Exam: GEN: NAD HEENT: AT, NC, No cyanosis, oral mucosa is moist, No JVD Lymphatics: No lymphadenoapthy Eyes: Extrocular muscles intact, anicteric CVS:RRR. S1, S2, No m/r/g RESP: CTAB ABD: Soft, NT, ND, +BS EXT: Erythema noted from the right mid leg to the toes. A wound VAC is present on the medial aspect of the right distal lower extremity with small amount of bloody drainage. There is edema noted in the right lower extremities., 2+ DP NEURO: Nonfocal, CN II-XII intact, No focal motor or sensory deficits Psych: Cooperative, Not anxious or depressed Internal Med - H&P Results - Labs CBC & Chem 7: 12/29/17 21:32 12/29/17 21:32 Labs: Short CBC 12/29/17 Range/Units 21:32 WBC 13.7 H (4.3-11.1) K/mcL Hgb 10.8 L (11.5-15.4) g/dL Hct 33.3 L (35.3-44.9) % Plt Count 274 (140-400) K/mcL Neutrophils # 12.6 H (1.6-8.9) K/mcL BMP 12/29/17 21:32 Sodium 127 L Potassium 4.3 Chloride 98 Carbon Dioxide 17 L BUN 27 H Creatinine 1.52 H Glucose 407 H Calcium 8.5 L Cardiac Enzymes 12/29/17 Range/Units 21:32 Troponin I < 0.03 (< 0.04) ng/mL Liver Function 12/29/17 Range/Units 21:32 Total Bilirubin 0.4 (0.3-1.0) mg/dL Direct Bilirubin 0.2 (0.0-0.2) mg/dL AST 13 (13-39) Units/L ALT 16 (7-52) Units/L Alkaline Phosphatase 127 H (34-104) Units/L Albumin 3.3 L (3.5-5.7) g/dL - Impressions ITS Impressions Foot X-Ray 12/29/17 21:06 IMPRESSION: Stable appearance of the calcaneus with findings suspicious for chronic osteomyelitis. Large soft tissue ulceration underlying the calcaneus again noted with findings along the mid and forefoot concerning for cellulitis. D/ / 12/29/2017 22:28:33 Milind Odell MD / javier Interpreting Provider: Milind Odell MD Ankle X-Ray 12/29/17 21:13 IMPRESSION: Stable appearance of the calcaneus with findings suspicious for chronic osteomyelitis. Large soft tissue ulceration underlying the calcaneus again noted with findings along the mid and forefoot concerning for cellulitis. D/ / 12/29/2017 22:28:33 Milind Odell MD / javier Interpreting Provider: Milind Odell MD Chest X-Ray 12/29/17 21:23 IMPRESSION: No definite acute cardiopulmonary process. D/ / Milind Odell MD / Milind Odell MD Interpreting Provider: Milind Odell MD - Assessment and plan (1) Sepsis Current Visit: Yes Status: Acute Assessment and plan: Secondary to lower extremity cellulitis/chronic osteomyelitis. Treat as below. Qualifiers: Sepsis type: sepsis due to unspecified organism Qualified Code(s): A41.9 - Sepsis, unspecified organism (2) Cellulitis of right lower extremity Current Visit: Yes Status: Acute Assessment and plan: We will continue with vancomycin and Zosyn. Podiatry was consulted. Pain control. (3) Lactic acidosis Current Visit: Yes Status: Acute Assessment and plan: The patient was given IV fluids per sepsis protocol. We will repeat lactic acid and give more IV fluids if still elevated. (4) Chronic osteomyelitis Current Visit: Yes Status: Acute Assessment and plan: This is chronic and was present previously. Podiatry was consulted. No further imaging is needed for now according to the ED conversation with the teachers' assistant regional marketing manager. They will see the patient in the morning. Continue with antibiotics as above. (5) Hyponatremia Current Visit: No Status: Acute Assessment and plan: We will gently hydrate. Repeat labs in the morning. (6) Type 2 diabetes mellitus Current Visit: No Status: Chronic Assessment and plan: Seems to be uncontrolled. A1c back in June was 9.2. We will repeat. We will put the patient on insulin sliding scale and resume basal insulin from home. Accu-Cheks. Needs better diabetic control in order to help with healing. Qualifiers: Diabetes mellitus skilled nursing insulin use: with termite treater helper use Diabetes mellitus complication status: with circulatory complication Diabetes mellitus complication detail: with other circulatory complications Qualified Code(s): E11.59 - Type 2 diabetes mellitus with other circulatory complications; Z79.4 - shelter (current) use of insulin (7) Hyperlipidemia Current Visit: No Status: Chronic Assessment and plan: Continue on statin Qualifiers: Hyperlipidemia type: mixed hyperlipidemia Qualified Code(s): E78.2 - Mixed hyperlipidemia (8) CKD (chronic kidney disease) stage 3, GFR 30-59 ml/min Current Visit: Yes Status: Acute Assessment and plan: I suspect the patient has chronic kidney disease from uncontrolled diabetes. Her creatinine is elevated but has been elevated since early 2017. We will hydrate the patient and see if her kidney function would improve but I suspect the patient has underlying kidney disease now. (9) Hypertension Current Visit: Yes Status: Acute Assessment and plan: Resume home antihypertensives. We will add IV hydralazine to be used when necessary. Patient has somewhat of an elevated blood pressure. Qualifiers: Hypertension type: essential hypertension Qualified Code(s): I10 - Essential (primary) hypertension (10) DVT prophylaxis Current Visit: No Status: Acute Assessment and plan: Heparin subcutaneous - Time Spent With Patient Total time spent is greater than 50% in coordination of care (as documented) at patient's floor/unit and/or counseling patient:
[2017-12-29] MEDS ORDERED: Dextrose Gel 15 GM/37.5 ML TUBE PO PRN ×2 (23:43)
[2017-12-29] MEDS ORDERED: D5% in Water 1,000 ML IVC PRN (23:43)
[2017-12-29] MEDS ORDERED: *HR* Dextrose 50 % in Water (Syg) 50 ML SYRINGE IVP PRN (23:43)
[2017-12-29] MEDS ORDERED: 0.9 % Sodium Chloride 1,000 ML IVC SCH (23:45)
[2017-12-30] MEDS: Acetaminophen 325 MG TABLET PO PRN (01:14)
[2017-12-30 01:34] LABS: Basophils % 0.1 %; Eosinophils % 0.2 %; Hematocrit 29.6 % (35.3-44.9); Hemoglobin 9.7 g/dL (11.5-15.4); Immature Granulocytes % 0.5 % (0-4); Lymphocytes # 0.7 K/mcL (0.6-4.6); Lymphocytes % 5.2 %; Mean Corpuscular HGB Conc 32.8 g/dL (31.6-35.5); Mean Corpuscular Hemoglobin 27.7 pg (28.0-33.3); Mean Corpuscular Volume 84.6 fL (83.0-100.0); Monocytes # 0.6 K/mcL (0.0-1.3); Monocytes % 5.1 %; Platelet Count 249 K/mcL (140-400); Red Cell Distribution Width 15.5 % (11.5-14.5); Segmented Neutrophils % 88.9 %
[2017-12-30 01:41] LABS: Calcium 7.8 mg/dL (8.6-10.3); Magnesium 1.6 mg/dL (1.6-2.6)
[2017-12-30] MEDS: *HR* Enoxaparin 30 MG/0.3 ML SYRINGE SQ SCH (05:38)
[2017-12-30] MEDS ORDERED: *HR* Heparin 5,000 UNIT/ML VIAL SQ SCH (06:00)
[2017-12-30 08:21] LABS: Estimated Average Glucose 252 mg/dl; Hemoglobin A1C 10.4 %
[2017-12-30] MEDS: Insulin LISPRO 300 UNITS/3 ML VIAL SQ SCH ×4 (08:49→18:06)
[2017-12-30] MEDS: Sennosides 8.6 MG TABLET PO SCH (08:50)
[2017-12-30] MEDS: Famotidine 20 MG TABLET PO SCH ×2 (08:50→18:01)
[2017-12-30] MEDS: Gabapentin 300 MG CAPSULE PO SCH ×2 (08:51→20:30)
[2017-12-30] MEDS: Piperacillin/Tazobactam 3.375 GM in 0.9 % Sodium Chloride Mini Bag 100 ML IVPB SCH ×2 (08:51→18:02)
[2017-12-30] MEDS: Insulin DETEMIR 100 UNIT/ML X5UNITS SQ SCH (09:01)
--- NOTE | 2017-12-30 12:34 | Podiatry Consult Note ---
Date of Encounter: 12/30/17 Time of Encounter: 12:00 Assessment and Plan (1) Chronic ulcer of right foot Current visit: No Status: Chronic Chronic right heel ulcer. WBC: 13.2 upon admission and 12.4 today Hgb A1C: 10.4 Foot X-Ray 12/29/17 21:06 IMPRESSION: Stable appearance of the calcaneus with findings suspicious for chronic osteomyelitis. Large soft tissue ulceration underlying the calcaneus again noted with findings along the mid and forefoot concerning for cellulitis. Plan: Wound care ordered with Santyl ointment to ulceration and betadine to surrounding skin. ABIs and TCPO2 ordered. Will continue with wound care until vascular studies are completed. Will continue to follow patient closely. Qualifiers: Non-pressure ulcer stage: with fat layer exposed Qualified Code(s): L97.512 - Non-pressure chronic ulcer of other part of right foot with fat layer exposed (2) Type 2 diabetes mellitus Current visit: Yes Status: Chronic Qualifiers: Diabetes mellitus detention insulin use: with detention use Diabetes mellitus complication status: with circulatory complication Diabetes mellitus complication detail: with other circulatory complications Qualified Code(s): E11.59 - Type 2 diabetes mellitus with other circulatory complications; Z79.4 - correction (current) use of insulin (3) Peripheral neuropathy Current visit: No Status: Acute Qualifiers: Peripheral neuropathy type: polyneuropathy, unspecified Qualified Code(s): G62.9 - Polyneuropathy, unspecified (4) Chronic venous insufficiency Current visit: No Status: Acute (5) CKD (chronic kidney disease) stage 3, GFR 30-59 ml/min Current visit: Yes Status: Chronic History of Present Illness HPI: Ms. Mccallum is a 52 year old female admitted to [place] for a right foot ulcer. Patient has a medical history significant for HTN, GERD, CAD, hyperlipidemia, DM with neuropathy, PAD, and a chronic right heel ulcer. Patient states she has had this right heel ulcer for 6 years. Patient is being treated in wound care by Dr. Walker. Prior to wound care with Dr. Walker patient was treated at [facility] for treatment of her right heel ulcer. Patient has had multiple surgeries on her right heel and has had osteomyelitis. Patient has had an angioplasty and a stent placed in her right leg by Dr. Blake at [facility] in May of 2016. Patient presented to the Emergency Department with complaints of fever, chills and bloody drainage in her canister from the wound vac. Patient states she had a wound vac on up until today. States she was last seen by Dr. Walker last week. Patient denies any pain. Patient smokes a pack of cigarettes per day for the past 37 years. Past Med Surg Social Fam HX - Past Medical History Medical history: coronary artery disease, diabetes, GERD, hyperlipidemia, hypertension, peripheral artery disease, renal disease Psychiatric history: no psych history - Past Surgical History Surgical History: angioplasty/stent, orthopedic, other, other - Social History Smoking Status: Current every day smoker Smokeless Tobacco Status: No Alcohol use: none Drug use: none - Family History Mother Family Member Ethnicity: Non- Living Status: Still Living Hx Family Cardiac Disorders: Yes Hx Family Endocrine Disorder: Yes (type 2 diabetes) Father Family Member Ethnicity: Non- Living Status: Still Living Hx Family Endocrine Disorder: Yes (type 2 diabetes) Medications and Allergies Atorvastatin Calcium [Lipitor] 80 mg PO DAILY 08/21/16 [History] Clopidogrel [Plavix] 75 mg PO DAILY 08/21/16 [History] Ferrous Sulfate 325 mg PO BIDWM 08/21/16 [History] Gabapentin [Neurontin] 300 mg PO BID 08/21/16 [History] Lisinopril [Zestril] 10 mg PO DAILY 08/21/16 [History] Magnesium Oxide [Magnesium] 400 mg PO DAILY 08/21/16 [History] Nitroglycerin [Nitrostat] 0.4 mg SL Q5M PRN 08/21/16 [History] Ranitidine HCl [Acid Manager Retention] 150 mg PO BID 08/21/16 [History] Sertraline [Zoloft] 100 mg PO DAILY 08/21/16 [History] Metformin HCl [Glucophage] 1,000 mg PO BID 03/28/17 [History] Insulin ASPART [NovoLOG] 0 unit SQ TIDWM 06/19/17 [History] Sennosides [Senna] 8.6 mg PO DAILY 06/19/17 [History] Hydrochlorothiazide [Microzide] 12.5 mg PO DAILY 12/30/17 [History] Insulin Glargine,Hum.rec.anlog [Basaglar Kwikpen U-100] 60 unit SQ QAM 05/21/18 [History] 3 Allergy/AdvReac Type Severity Reaction Status Date / Time Hydromorphone [From Dilaudid] Allergy Palpitation Verified 03/28/17 10:45 s heparin AdvReac See Verified 03/28/17 16:53 Comments All Systems Reviewed: The remainder of the systems were reviewed and are negative Physical Exam - Constitutional Vitals: Temp Pulse Resp BP Pulse Ox 98.5 F 79 17 135/80 98 12/30/17 11:27 12/30/17 11:27 12/30/17 11:27 12/30/17 11:27 12/30/17 11:27 Exam: General appearance: alert awake oriented X 3. Calm and pleasant, no acute distress.. Vascular: Pedal pulses +1/4 DP/PT , No evidence of cyanosis, pallor or rubor, Edema graded at 2+/4, Skin temperature warm, No varicosities or varicose veins noted, Homans Sign negative, capillary refill time is immediate to digits.. Neurologic: Decreased sensation with light touch. Musculoskeletal : Muscle strength 4/5 and equal bilaterally.. Integument: Skin with decreased turgor, decreased subcutaneous tissue, skin thin and shiny with trophic changes associated with comorbidities as described in history. Full thickness ulceration to the plantar aspect of the right heel measuring 4.5 cm in length x 4 cm in width x 1 cm in depth. Moderate amount of serous drainage observed to dressing. Base of wound with fibrous tissue. Wound edges connected and macerated. Malodorous. No streaking, no lmyphangitis, no fluctuance, no pus, no probe to bone. Superficial ulceration to the medial aspect of the right great toe measuring 1cm in diameter, base of ulcer red, no pus, no odor, no streaking. Results - Labs Result Diagrams: 12/31/17 04:18 12/31/17 04:18 Labs: Abnormal lab results WBC 12.4 K/mcL (4.3-11.1) H 12/30/17 01:12 RBC 3.50 M/mcL (3.82-4.97) L 12/30/17 01:12 Hgb 9.7 g/dL (11.5-15.4) L 12/30/17 01:12 Hct 29.6 % (35.3-44.9) L 12/30/17 01:12 MCH 27.7 pg (28.0-33.3) L 12/30/17 01:12 RDW 15.5 % (11.5-14.5) H 12/30/17 01:12 Neutrophils # 11.0 K/mcL (1.6-8.9) H 12/30/17 01:12 Nucleated RBCs/100 WBC 0.1 /100 WBC (0) H 12/29/17 21:32 PT 12.7 Seconds (9.4-12.1) H 12/29/17 21:32 Sodium 129 mEq/L (136-145) L 12/30/17 01:12 Carbon Dioxide 18 mEq/L (23-29) L 12/30/17 01:12 BUN 25 mg/dL (6-20) H 12/30/17 01:12 Creatinine 1.38 mg/dL (0.60-1.20) H 12/30/17 01:12 Est GFR ( Amer) 48 (> 60) L 12/30/17 01:12 Est GFR (Non-Af Amer) 40 (> 60) L 12/30/17 01:12 Glucose 347 mg/dL (70-105) H 12/30/17 01:12 POC Glucose 373 mg/dL (70-99) H 12/30/17 11:32 Hemoglobin A1c 10.4 % (-5.6) H 12/30/17 01:12 Calcium 7.8 mg/dL (8.6-10.3) L 12/30/17 01:12 Alkaline Phosphatase 127 Units/L (34-104) H 12/29/17 21:32 Albumin 3.3 g/dL (3.5-5.7) L 12/29/17 21:32 Globulin 3.8 g/dL (2.4-3.5) H 12/29/17 21:32 Albumin/Globulin Ratio 0.9 (1.1-2.2) L 12/29/17 21:32 H & H 12/30/17 Range/Units 01:12 Hgb 9.7 L (11.5-15.4) g/dL Hct 29.6 L (35.3-44.9) % All other labs normal. Consult Discharge Plan - Plan Referrals: cali,Matteo Velez MD [Primary Care Provider] -
--- NOTE | 2017-12-30 13:57 | Electrocardiograph Report ---
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
--- NOTE | 2017-12-30 14:42 | Internal Med Progress Note ---
Date of Encounter: 12/30/17 Time of Encounter: 10:30 - Assessment and plan (1) Sepsis Current Visit: Yes Status: Acute Assessment and plan: With right foot ulcer and underlying chronic osteomyelitis with cellulitis. Continue IV antibiotics. WBC count is improving. Follow podiatry recommendations. Follow blood culture results. Moderate risk for complications. Qualifiers: Sepsis type: sepsis due to unspecified organism Qualified Code(s): A41.9 - Sepsis, unspecified organism (2) Cellulitis of right lower extremity Current Visit: Yes Status: Acute Assessment and plan: With chronic right foot ulcer. Continue IV antibiotics. Follow podiatry recommendations (3) Type 2 diabetes mellitus Current Visit: Yes Status: Chronic Assessment and plan: Uncontrolled. Will increase insulin regimen and place patient on long-acting insulin. Diabetic diet. Monitor blood sugars closely. Qualifiers: Diabetes mellitus oil heaterman insulin use: with oil heaterman use Diabetes mellitus complication status: with circulatory complication Diabetes mellitus complication detail: with other circulatory complications Qualified Code(s): E11.59 - Type 2 diabetes mellitus with other circulatory complications; Z79.4 - MCFP (current) use of insulin (4) DVT prophylaxis Current Visit: Yes Status: Acute Assessment and plan: With subcutaneous Lovenox (5) Hyponatremia Current Visit: Yes Status: Chronic Assessment and plan: Appears to be acute on chronic. Likely due to hydrochlorothiazide use. Given her chronic kidney disease, will stop this medication. Monitor sodium levels. (6) Hyperlipidemia Current Visit: No Status: Chronic Assessment and plan: Continue atorvastatin Qualifiers: Hyperlipidemia type: mixed hyperlipidemia Qualified Code(s): E78.2 - Mixed hyperlipidemia (7) Lactic acidosis Current Visit: Yes Status: Resolved Assessment and plan: Due to sepsis. Now resolved (8) CKD (chronic kidney disease) stage 3, GFR 30-59 ml/min Current Visit: Yes Status: Chronic Assessment and plan: Renal function at baseline. Creatinine 1.38 today. We will stop hydrochlorothiazide. Resume lisinopril. (9) Hypertension Current Visit: Yes Status: Chronic Assessment and plan: Blood pressure was abnormally elevated this morning. Likely false read. Repeat blood pressure has been much better. Will continue current medications. And resume lisinopril. Qualifiers: Hypertension type: essential hypertension Qualified Code(s): I10 - Essential (primary) hypertension (10) Chronic osteomyelitis Current Visit: Yes Status: Chronic Assessment and plan: Podiatric consulted. We will follow recommendations (11) Chronic diastolic heart failure Current Visit: Yes Status: Chronic Assessment and plan: 2-D echocardiogram done in 2016 showed EF of 60% with mild diastolic dysfunction. We will repeat 2-D echocardiogram given patient's reported dyspnea on exertion. We will stop IV fluids. - Time Spent With Patient Total time spent is greater than 50% in coordination of care (as documented) at patient's floor/unit and/or counseling patient: - Subjective Interval history: Patient is sitting up in chair. Complains of shortness of breath. Pain in right foot controlled at this time. No fever or chills reported overnight. No chest pain. No palpitations. She reports history of prior coronary artery stenting and has previously been diagnosed with heart failure. - Constitutional Vitals: Temp Pulse Resp BP Pulse Ox 98.5 F 79 17 135/80 98 12/30/17 11:27 12/30/17 11:27 12/30/17 11:27 12/30/17 11:27 12/30/17 11:27 General appearance: Present: cooperative, mild distress, A&O X 3, morbidly obese , pleasant, answers questions appropriately - Neck Neck exam general surgery: Present: supple, trachea midline. Absent: lymphadenopathy - Respiratory Respiratory exam: Present: decreased breath sounds (Diminished at both bases), prolonged expiratory phase. Absent: accessory muscle use, rales, rhonchi, wheezes - Cardiovascular Cardiovascular exam: Present: RRR, +S1, +S2. Absent: diastolic murmur, gallop, rubs, systolic murmur - GI/Abdominal GI/Abdominal exam: Present: normal bowel sounds, soft, no peritoneal signs. Absent: distended, tenderness - Extremities Exam Extremities exam: Present: pedal edema, warm, radial pulses palpable and symmetrical. Absent: calf tenderness, cyanotic Additional comments: Erythema improved over her right lower extremity. Right foot wound VAC in place. - Neurological Exam Neurological exam: Present: alert, oriented X3, no focal deficits. Absent: facial droop, speech deficit - Skin Skin exam: Present: dry, erythema (As described above), intact Internal Medicine: Result - Labs CBC & Chem 7: 12/30/17 01:12 12/30/17 01:12 Labs: Short CBC 12/30/17 Range/Units 01:12 WBC 12.4 H (4.3-11.1) K/mcL Hgb 9.7 L (11.5-15.4) g/dL Hct 29.6 L (35.3-44.9) % Plt Count 249 (140-400) K/mcL Neutrophils # 11.0 H (1.6-8.9) K/mcL BMP 12/30/17 01:12 Sodium 129 L Potassium 4.0 Chloride 104 Carbon Dioxide 18 L BUN 25 H Creatinine 1.38 H Glucose 347 H Calcium 7.8 L - ABG Interpretation ABG results: PT/INR, D-dimer PT 12.7 Seconds (9.4-12.1) H 12/29/17 21:32 Consult Discharge Plan - Plan Referrals: Matteo Love MD [Primary Care Provider] -
[2017-12-30] MEDS ORDERED: Insulin LISPRO 300 UNITS/3 ML VIAL SQ SCH ×2 (21:00)
--- NOTE | 2017-12-30 21:17 | Event Note ---
Date of Encounter: 12/30/17 Time of Encounter: 21:16 Blood culture is Gram + cocci. Streptococcous species. Waiting for sensitivity.
[2017-12-30 21:22] LABS: Acinetobacter baumannii by PCR Not Detected (Not Detect); Candida albicans by PCR Not Detected (Not Detect); Candida glabrata by PCR Not Detected (Not Detect); Candida krusei by PCR Not Detected (Not Detect); Candida parapsilosis by PCR Not Detected (Not Detect); Candida tropicalis by PCR Not Detected (Not Detect); Enterococcus by PCR Not Detected (Not Detect); Escherichia coli by PCR Not Detected (Not Detect); Klebsiella oxytoca by PCR Not Detected (Not Detect); Klebsiella pneumoniae by PCR Not Detected (Not Detect); Pseudomonas aeruginosa by PCR Not Detected (Not Detect); Serratia marcescens by PCR Not Detected (Not Detect); Staphylococcus aureus by PCR Not Detected (Not Detect); Streptococcus agalactiae(B)PCR Not Detected (Not Detect); Streptococcus by PCR ***DETECTED*** (Not Detect); Streptococcus pneumoniae PCR Not Detected (Not Detect); Streptococcus pyogenes (A) PCR Not Detected (Not Detect)
[2017-12-30] MEDS ORDERED: Perflutren Lipid Microsphere 1.3 ML in 0.9 % Sodium Chloride 8.7 ML IVP ONE (21:48)
[2017-12-31] MEDS: Piperacillin/Tazobactam 3.375 GM in 0.9 % Sodium Chloride Mini Bag 100 ML IVPB SCH ×3 (01:12→18:10)
[2017-12-31] MEDS: Acetaminophen 325 MG TABLET PO PRN (01:15)
[2017-12-31 04:43] LABS: Basophils % 0.3 %; Eosinophils # 0.1 K/mcL (0.0-0.6); Eosinophils % 1.1 %; Hematocrit 29.1 % (35.3-44.9); Hemoglobin 9.3 g/dL (11.5-15.4); Immature Granulocytes % 0.6 % (0-4); Lymphocytes # 1.1 K/mcL (0.6-4.6); Mean Corpuscular Hemoglobin 27.2 pg (28.0-33.3); Mean Corpuscular Volume 85.1 fL (83.0-100.0); Mean Platelet Volume 9.8 fL (9.4-12.4); Monocytes # 0.9 K/mcL (0.0-1.3); Monocytes % 10.1 %; Neutrophils # 6.8 K/mcL (1.6-8.9); Platelet Count 251 K/mcL (140-400); Red Blood Count 3.42 M/mcL (3.82-4.97); Red Cell Distribution Width 15.7 % (11.5-14.5); Segmented Neutrophils % 75.9 %
[2017-12-31 05:04] LABS: Calcium 8.1 mg/dL (8.6-10.3); Potassium 4.2 mEq/L (3.5-5.1)
[2017-12-31] MEDS: *HR* Enoxaparin 30 MG/0.3 ML SYRINGE SQ SCH (05:11)
[2017-12-31] MEDS: Sennosides 8.6 MG TABLET PO SCH (08:31)
[2017-12-31] MEDS: Gabapentin 300 MG CAPSULE PO SCH ×2 (08:31→21:09)
[2017-12-31] MEDS: Famotidine 20 MG TABLET PO SCH ×2 (08:31→18:10)
[2017-12-31] MEDS: Insulin LISPRO 300 UNITS/3 ML VIAL SQ SCH ×6 (08:33→21:09)
[2017-12-31] MEDS: Insulin DETEMIR 100 UNIT/ML X5UNITS SQ SCH (08:38)
[2017-12-31] MEDS ORDERED: Lidocaine -MPF 1% 5 ML AMPUL INFILT ONE (09:16)
--- NOTE | 2017-12-31 12:34 | Internal Med Progress Note ---
Date of Encounter: 12/31/17 Time of Encounter: 12:44 - Assessment and plan (1) Sepsis Current Visit: Yes Status: Acute Assessment and plan: With right foot ulcer and underlying chronic osteomyelitis with cellulitis. Continue IV antibiotics. WBC count is improving. Follow podiatry recommendations. Blood cultures in 1 of 2 vials positive for strep species. Will repeat blood cultures today. Moderate risk for complications. Qualifiers: Sepsis type: sepsis due to unspecified organism Qualified Code(s): A41.9 - Sepsis, unspecified organism (2) Cellulitis of right lower extremity Current Visit: Yes Status: Acute Assessment and plan: With chronic right foot ulcer. Continue IV antibiotics. Follow podiatry recommendations (3) Chronic osteomyelitis Current Visit: Yes Status: Chronic Assessment and plan: Podiatry consulted, recommendations appreciated. (4) Type 2 diabetes mellitus Current Visit: Yes Status: Chronic Assessment and plan: Diabetic diet [place] daily ISS Qualifiers: Diabetes mellitus exterminator termite insulin use: with detention use Diabetes mellitus complication status: with circulatory complication Diabetes mellitus complication detail: with other circulatory complications Qualified Code(s): E11.59 - Type 2 diabetes mellitus with other circulatory complications; Z79.4 - petroleum terminal plant operator (current) use of insulin (5) Hyponatremia Current Visit: Yes Status: Chronic Assessment and plan: Appears to be acute on chronic. Likely due to hydrochlorothiazide use. Continue to hold HCTZ (6) Hyperlipidemia Current Visit: No Status: Chronic Assessment and plan: Continue atorvastatin Qualifiers: Hyperlipidemia type: mixed hyperlipidemia Qualified Code(s): E78.2 - Mixed hyperlipidemia (7) Lactic acidosis Current Visit: Yes Status: Resolved Assessment and plan: Due to sepsis. Now resolved (8) CKD (chronic kidney disease) stage 3, GFR 30-59 ml/min Current Visit: Yes Status: Chronic Assessment and plan: Renal function at baseline. Creatinine 1.38 today. We will stop hydrochlorothiazide. Resume lisinopril. (9) Hypertension Current Visit: Yes Status: Chronic Assessment and plan: BP improved, Continue lisinopril HCTZ held because of hypnatremia, which is now improving. Qualifiers: Hypertension type: essential hypertension Qualified Code(s): I10 - Essential (primary) hypertension (10) Chronic diastolic heart failure Current Visit: Yes Status: Chronic Assessment and plan: 2-D echocardiogram done in 2016 showed EF of 60% with mild diastolic dysfunction. Repeat echocadriogram during this admission showed no acute changes. (11) DVT prophylaxis Current Visit: Yes Status: Acute Assessment and plan: With subcutaneous Lovenox 30 mg daily. - Time Spent With Patient Total time spent is greater than 50% in coordination of care (as documented) at patient's floor/unit and/or counseling patient: - Subjective Interval history: No acute events. Patient states redness and pain significantly improved from admission. - Constitutional Vitals: Temp Pulse Resp BP Pulse Ox 98.3 F 77 18 125/76 95 12/31/17 10:32 12/31/17 10:32 12/31/17 10:32 12/31/17 10:32 12/31/17 10:32 General appearance: Present: cooperative, mild distress, A&O X 3, morbidly obese , pleasant, answers questions appropriately Exam: - Respiratory Respiratory exam: Present: decreased breath sounds (Diminished at both bases), prolonged expiratory phase. Absent: accessory muscle use, rales, rhonchi, wheezes - Cardiovascular Cardiovascular exam: Present: RRR, +S1, +S2. Absent: diastolic murmur, gallop, rubs, systolic murmur - GI/Abdominal GI/Abdominal exam: Present: normal bowel sounds, soft, no peritoneal signs. Absent: distended, tenderness - Extremities Exam Extremities exam: Present: pedal edema, warm, radial pulses palpable and symmetrical. Absent: calf tenderness, cyanotic Additional comments: Dressing over right foot clean. Edema of right leg noted. Erythema of right leg is below demarcted line. - Neurological Exam Neurological exam: Present: alert, oriented X3, no focal deficits. Absent: facial droop, speech deficit - Skin Skin exam: Present: dry, erythema, intact Internal Medicine: Result - Labs CBC & Chem 7: 12/31/17 04:18 12/31/17 04:18 Labs: Short CBC 12/31/17 Range/Units 04:18 WBC 9.0 (4.3-11.1) K/mcL Hgb 9.3 L (11.5-15.4) g/dL Hct 29.1 L (35.3-44.9) % Plt Count 251 (140-400) K/mcL Neutrophils # 6.8 (1.6-8.9) K/mcL BMP 12/31/17 04:18 Sodium 134 L Potassium 4.2 Chloride 108 H Carbon Dioxide 20 L BUN 21 H Creatinine 1.26 H Glucose 84 Calcium 8.1 L - ABG Interpretation ABG results: PT/INR, D-dimer PT 12.7 Seconds (9.4-12.1) H 12/29/17 21:32 - Impressions Impressions Echocardiogram 12/30/17 14:46 Impressions: LVEF 60%. Moderate left ventricular diastolic dysfunction. Definity echo contrast was used. Normal right ventricular structure and function. Mild aortic regurgitation. Mild mitral regurgitation. Mild tricuspid regurgitation. No pulmonary hypertension by TR gradient, 24 mmHg. Left Ventricular Wall Motion: Rest Echo Findings All wall segments showed normal motion. Findings: Study Quality * Technically adequate exam. ECG Findings * Normal sinus rhythm. Left Ventricle * LVEF 60%. * Moderate left ventricular diastolic dysfunction. * Normal LV chamber size and wall thickness. * Definity echo contrast was used. Right Ventricle * Normal right ventricular structure and function. Left Atrium * Mildly dilated left atrium. Right Atrium * Normal right atrial size. Aortic Valve * Trileaflet aortic valve. * No aortic stenosis. * Mild aortic regurgitation. Mitral Valve * Normal mitral valve structure. * No mitral stenosis. * Mild mitral regurgitation. Tricuspid Valve * Tricuspid valve not well visualized. * Mild tricuspid regurgitation. Pulmonic Valve * Pulmonic valve is not well visualized. * No pulmonic stenosis. * No pulmonic regurgitation. Pulmonary Artery * Pulmonary artery not well visualized. Aorta * Normally sized aortic root. Pericardium * There is no pericardial effusion present. Interatrial Septum * No evidence of PFO by color Doppler. IVC * The IVC is not well evaluated. Consult Discharge Plan - Plan Referrals: Matteo leiva MD [Primary Care Provider] -
--- NOTE | 2017-12-31 15:45 | Podiatry Progress Note ---
Date of Encounter: 12/31/17 Time of Encounter: 12:30 - Assessment and Plan (1) Chronic ulcer of right foot Current Visit: No Status: Chronic Chronic right heel ulcer. WBC: 9.0 Hgb A1C: 10.4 Foot X-Ray 12/29/17 21:06 IMPRESSION: Stable appearance of the calcaneus with findings suspicious for chronic osteomyelitis. Large soft tissue ulceration underlying the calcaneus again noted with findings along the mid and forefoot concerning for cellulitis. Right DESTINY: nomral Left DESTINY: mild arterial disease. TCPO2 pending. Blood cultures 1 of 2 sets positive for GPC- strep species. Plan: Continue wound care as ordered with Santyl ointment to ulceration and betadine to surrounding skin. Will increase dressing changes to twice daily due to amount of drainage observed through dressing. Continue IV antibiotics per Hospitalist, recommended Infectious Disease consult for chronic osteomyelitis. Plan on outpatient surgery of right heel once ulceration is stabilized. Follow up with Dr. Walker in the wound care center one week after discharge form hospital. Qualifiers: Non-pressure ulcer stage: with fat layer exposed Qualified Code(s): L97.512 - Non-pressure chronic ulcer of other part of right foot with fat layer exposed (2) Type 2 diabetes mellitus Current Visit: Yes Status: Chronic Qualifiers: Diabetes mellitus director long term care insulin use: with retirement use Diabetes mellitus complication status: with circulatory complication Diabetes mellitus complication detail: with other circulatory complications Qualified Code(s): E11.59 - Type 2 diabetes mellitus with other circulatory complications; Z79.4 - long term care social worker (current) use of insulin (3) Peripheral neuropathy Current Visit: No Status: Acute Qualifiers: Peripheral neuropathy type: polyneuropathy, unspecified Qualified Code(s): G62.9 - Polyneuropathy, unspecified (4) Chronic venous insufficiency Current Visit: No Status: Acute (5) CKD (chronic kidney disease) stage 3, GFR 30-59 ml/min Current Visit: Yes Status: Chronic Subjective Interval history: Patient is sitting up on side of bed eating lunch. Dressing intact to right foot. No c/o pain to right foot. Patient had ABIs and TCPO2 of BLE completed yesterday. No c/o fever, chills, cp, sob or flu like symptoms. Objective - Vital Signs Vital Signs: Vital Signs Temp Pulse Resp BP Pulse Ox 12/31/17 14:40 98.6 F 84 16 141/69 93 12/31/17 10:32 98.3 F 77 18 125/76 95 12/31/17 07:14 98.6 F 76 18 126/82 96 12/31/17 03:32 98.1 F 73 16 136/72 94 12/30/17 22:33 98.1 F 86 16 137/74 95 12/30/17 18:55 98.1 F 78 15 135/68 97 Intake and Output 12/30/17 12/31/17 12/31/17 23:59 07:59 15:59 Intake Total 103 / 103 340 / 340 360 / 360 Output Total 0 / 0 700 / 700 400 / 400 Balance 103 / 103 -360 / -360 -40 / -40 Intake: IV Fluids 103 / 103 100 / 100 Definity 1.3 ML In Normal 3 / 3 Saline Flush 8.7 ML @ 1200 mls/ hr IVP ONCE ONE Rx#:[id number] Zosyn 3.375 GM In 0.9 % Sodium 100 / 100 100 / 100 Chloride (Mini-Bag +) 100 ML @ 25 mls/hr IVPB Q8HR [facility] Rx#: [id number] Oral 0 / 0 240 / 240 360 / 360 Output: Urine 0 / 0 700 / 700 400 / 400 Other: Meal Lunch Percent of Meal Consumed 100% # Bowel Movements 0 0 Weight 143.3 kg Blood Glucose* 263 86 118 Patient Weight 12/31/17 23:59 Weight 143.3 kg - Exam Exam: General appearance: alert awake oriented X 3. Calm and pleasant, no acute distress.. Wound: Dressing intact to right foot with moderate amount of serous drainage observed to dressing. No streaking. - Lab Result Diagrams: 01/01/18 04:53 01/01/18 04:53 Labs: Abnormal lab results RBC 3.42 M/mcL (3.82-4.97) L 12/31/17 04:18 Hgb 9.3 g/dL (11.5-15.4) L 12/31/17 04:18 Hct 29.1 % (35.3-44.9) L 12/31/17 04:18 MCH 27.2 pg (28.0-33.3) L 12/31/17 04:18 RDW 15.7 % (11.5-14.5) H 12/31/17 04:18 Nucleated RBCs/100 WBC 0.1 /100 WBC (0) H 12/29/17 21:32 PT 12.7 Seconds (9.4-12.1) H 12/29/17 21:32 Sodium 134 mEq/L (136-145) L 12/31/17 04:18 Chloride 108 mEq/L (98-107) H 12/31/17 04:18 Carbon Dioxide 20 mEq/L (23-29) L 12/31/17 04:18 BUN 21 mg/dL (6-20) H 12/31/17 04:18 Creatinine 1.26 mg/dL (0.60-1.20) H 12/31/17 04:18 Est GFR ( Amer) 54 (> 60) L 12/31/17 04:18 Est GFR (Non-Af Amer) 44 (> 60) L 12/31/17 04:18 POC Glucose 118 mg/dL (70-99) H 12/31/17 11:24 Hemoglobin A1c 10.4 % (-5.6) H 12/30/17 01:12 Calcium 8.1 mg/dL (8.6-10.3) L 12/31/17 04:18 Alkaline Phosphatase 127 Units/L (34-104) H 12/29/17 21:32 Albumin 3.3 g/dL (3.5-5.7) L 12/29/17 21:32 Globulin 3.8 g/dL (2.4-3.5) H 12/29/17 21:32 Albumin/Globulin Ratio 0.9 (1.1-2.2) L 12/29/17 21:32 Streptococcus sp PCR DETECTED (Not Detect) A 12/29/17 21:32 Consult Discharge Plan - Plan Referrals: Kate,Matteo Velez MD [Primary Care Provider] -
[2018-01-01] MEDS: Piperacillin/Tazobactam 3.375 GM in 0.9 % Sodium Chloride Mini Bag 100 ML IVPB SCH ×2 (00:14→08:50)
[2018-01-01 05:27] LABS: Basophils % 0.3 %; Eosinophils # 0.1 K/mcL (0.0-0.6); Eosinophils % 0.8 %; Hematocrit 29.7 % (35.3-44.9); Hemoglobin 9.1 g/dL (11.5-15.4); Immature Granulocytes % 0.6 % (0-4); Lymphocytes # 1.3 K/mcL (0.6-4.6); Lymphocytes % 12.5 %; Mean Corpuscular HGB Conc 30.6 g/dL (31.6-35.5); Mean Corpuscular Hemoglobin 25.9 pg (28.0-33.3); Mean Corpuscular Volume 84.4 fL (83.0-100.0); Mean Platelet Volume 9.9 fL (9.4-12.4); Monocytes % 9.3 %; Platelet Count 292 K/mcL (140-400); Red Blood Count 3.52 M/mcL (3.82-4.97); Red Cell Distribution Width 15.9 % (11.5-14.5); Segmented Neutrophils % 76.5 %
[2018-01-01 05:42] LABS: Calcium 8.3 mg/dL (8.6-10.3); Potassium 4.1 mEq/L (3.5-5.1)
[2018-01-01 06:02] LABS: Hypochromasia Present (Not Present); Platelet Estimate Normal (Normal); Reactive Lymphocytes Present (Not Present)
[2018-01-01] MEDS: *HR* Enoxaparin 30 MG/0.3 ML SYRINGE SQ SCH (06:04)
[2018-01-01] MEDS: Gabapentin 300 MG CAPSULE PO SCH ×2 (08:27→20:40)
[2018-01-01] MEDS: Sennosides 8.6 MG TABLET PO SCH (08:27)
[2018-01-01] MEDS: Famotidine 20 MG TABLET PO SCH ×2 (08:27→18:00)
[2018-01-01] MEDS: Insulin LISPRO 300 UNITS/3 ML VIAL SQ SCH ×4 (08:28→20:41)
[2018-01-01] MEDS: Insulin DETEMIR 100 UNIT/ML X5UNITS SQ SCH (08:49)
--- NOTE | 2018-01-01 13:06 | Infectious Disease Consult ---
Date of Encounter: 01/01/18 Time of Encounter: 13:02 Assessment and Plan (1) Sepsis Status: Acute Assessment and plan: Severe sepsis: The patient had three SIRS criteria plus lactic acidosis. Likely secondary to RLE cellulitis and bacteremia. Improved. WBC has normalized. Tachycardia has resolved. Afebrile x 48 hours. Repeat lactic acid normal. Blood cultures drawn 12/29/17 were positive 1/2 sets for GPC in chains, Strep species per PCR. Qualifiers: Sepsis type: sepsis due to unspecified organism Qualified Code(s): A41.9 - Sepsis, unspecified organism (2) Bacteremia Status: Acute Assessment and plan: Causative organism: Strep species. Source likely the RLE cellulitis. Blood cultures drawn 12/29/17 are positive 1/2 sets for Strep species per PCR. Final ID and sensitivities are pending. Repeat blood cultures drawn 12/31/17 are pending x 2 sets. No endocarditis stigmata noted on exam. The patient has two minor Modified Santos's Criteria. TTE negative for valvular vegetations. Low index of suspicion for IE. Will await final ID before deciding whether or not a MARILUZ is needed. Discontinue Vancomycin. Discontinue Zosyn. Start Unasyn 3 grams IV Q6H. Duration of treatment depends on the clinical picture, but likely 14 days from the first set of negative blood cultures. Await repeat cultures. Monitor renal function and dose-adjust antibiotics. Avoid insertion of central venous access until repeat blood cultures are negative x 48 hours. (3) Cellulitis of right lower extremity Status: Acute Assessment and plan: Location: Right lower leg and foot. Causative organism unclear, but likely Strep species given the blood culture results. Non-purulent. Likely secondary to chronic right heel ulcer. X-ray of the right foot and ankle showed findings consistent with chronic OM of the right calcaneus. Clinically improved. Check ESR and CRP. Continue antibiotics as stated above. Will do Unasyn for now in case the infection is polymicrobial, but will likely switch to Cefepime and flagyl on discharge. Duration of treatment depends on the clinical picture. (4) Chronic osteomyelitis involving lower leg Status: Acute Assessment and plan: Location: Right calcaneus. Clinically, the wound does not look acutely infected. Check ESR and CRP. Discussed with Podiatry who does not feel that the patient has an acute infection and does not have plans for surgery at this time. Continue wound care per the Podiatry team. Qualifiers: Laterality: right Qualified Code(s): M86.661 - Other chronic osteomyelitis , right tibia and fibula (5) Lactic acidosis Status: Resolved Assessment and plan: Secondary to sepsis. Resolved. (6) Non-healing ulcer Status: Acute Assessment and plan: Location: Right heel. Etiology unclear, but likely non-healing is multifactorial: uncontrolled DM, PAD , obesity, tobacco abuse. Podiatry consulted and following. Wound care and activity restrictions per the Podiatry team. Qualifiers: Non-pressure ulcer stage: unspecified non-pressure ulcer stage Qualified Code(s): L98.499 - Non-pressure chronic ulcer of skin of other sites with unspecified severity (7) Hyponatremia Status: Chronic (8) Peripheral arterial disease Status: Acute Assessment and plan: Status post angioplasty in 2015 at [facility]. ABIs consistent with mild disease bilaterally. TCPO2 monitoring showed findings consistent with healing in the bilateral feet and left ankle and findings consistent with non-healing in the right ankle. (9) Type 2 diabetes mellitus Status: Chronic Assessment and plan: Uncontrolled. HgbA1C 10.4%. Recommend aggressive glucose monitoring and control to promote wound healing and prevent re-infection. Management per the primary team. Qualifiers: Diabetes mellitus intermediate insulin use: with intermediate use Diabetes mellitus complication status: with circulatory complication Diabetes mellitus complication detail: with other circulatory complications Qualified Code(s): E11.59 - Type 2 diabetes mellitus with other circulatory complications; Z79.4 - medical terminologist (current) use of insulin (10) Peripheral neuropathy Status: Acute Qualifiers: Peripheral neuropathy type: polyneuropathy, unspecified Qualified Code(s): G62.9 - Polyneuropathy, unspecified (11) Tobacco abuse Status: Acute Assessment and plan: Discussed the importance of smoking cessation regarding wound/infection healing. (12) CKD (chronic kidney disease) stage 3, GFR 30-59 ml/min Status: Chronic Assessment and plan: Likely secondary to poorly-controlled DM. Continue to trend. Dose-adjust antibiotics. Strict I's and O's. Avoid nephrotoxins as able. Infectious Disease HPI - Data of Consult Patient: new to practice Consult date: 01/01/18 Requesting Physician: Chang Johnston MD Primary Care Provider: Matteo F Ucci, MD - Consult Narrative Reason for consult: Sepsis, cellulitis, right foot chronic OM History of present illness: Ms. Mccallum is a 52 year old female has medical history of type 2 diabetes on oral anti-hyperglycemics and injectables, hypertension, diabetic neuropathy, PAD , CAD, chronic kidney disease, and a chronic right foot wound status post multiple debridements with last surgery about 2 years ago at [facility]. He was admitted to the hospital December 29 for right lower extremity cellulitis and sepsis. We are consulted January 01 for further recommendations for right lower extreme cellulitis and chronic osteomyelitis of the right calcaneus. Briefly, the patient is a 52-year-old female with past medical history as stated above. The patient presented to the emergency department on the day of admission with a one-day history of subjective fevers and chills, increasing redness and swelling of the right lower extremity, and acute onset of bleeding from the right calcaneal wound. The patient has a long-standing history of a right calcaneus wound of unknown etiology that initially occurred about 6 years ago. She has been following with [facility] wound care and podiatry for several years until June when she transferred care to Dr. Walker. She states about 2 months ago he placed a wound VAC on the ulcer and had acute onset of bleeding on the day of admission. Upon presentation, the patient was febrile, tachycardic, and had leukocytosis with neutrophilic predominance. She had lactic acidosis and an elevated serum creatinine that appears to be at her baseline. Blood cultures were obtained 2 sets. Should her right foot x-ray showed findings consistent with chronic osteo-myelitis of the calcaneus and cellulitis. She had a chest x-ray that was negative. She received a dose of IV clindamycin and IV Zosyn in the emergency department and was admitted to the hospital for further evaluation. Since admission, the patient's leukocytosis has resolved. She has remained afebrile. She has been evaluated by podiatry who recommended vascular studies which were completed that showed mild disease bilaterally on the DESTINY. TCP O2 monitoring showed findings consistent with bilateral foot healing, left ankle consistent with healing, and right ankle consistent with nonhealing. She did transthoracic echo that showed an EF of 60% with moderate LV dysfunction. Repeat lactic acid was normal. Her kidney function has remained stable. Blood cultures obtained in the emergency department are +1 out of 2 sets for strep species per the PCR. She is currently on vancomycin and Zosyn. We have been asked to evaluate and make further recommendations. During my exam today, the patient states that last Saturday she began to have some subjective fevers and chills for about 2 days, which then resolved until the day of admission when they began again. She also reports noticing an increase in the amount of redness and swelling to the right lower extremity. States she had a cough productive of yellow sputum. She denies any congestion, earache, or sore throat. She reported some neck pain that she thought was associated with her cough. She denies any chest pain. She does report shortness of breath, worse with exertion and improved with rest. She states she does still have a cough. She denies any nausea or vomiting or diarrhea. She denies any abdominal pain, urinary complaints, or appetite changes. She states her blood sugars have been running pretty high at home. She denies any oral thrush or nasal skin lesions. She states that the redness and swelling of the right lower extremity has markedly improved since being admitted here at Hospital. She does report that she thinks the ulceration looks worse since she had a wound VAC placed a couple of months ago. She denies any foul odor or purulent drainage. The patient lives at home with her son. She has a small dog at home, but denies any contact between animal and the effected extremity. She does not work outside the home. She does smoke about a pack cigarettes per day. She denies any alcohol or illicit drug use. She denies recent travel outside the [facility]. CC: Chang Johnston MD Past Med Surg Social Fam HX - Past Medical History Attestation: Yes The following information was validated with the patient. Source: patient, old records reviewed, nursing notes reviewed Medical history: coronary artery disease, diabetes, GERD, hyperlipidemia, hypertension, peripheral artery disease (s/p angioplasty 2014), renal disease Psychiatric history: no psych history - Past Surgical History Surgical History: angioplasty/stent (RLE angioplasty 2014), orthopedic, other ( Right foot I & D x4), other - Social History Smoking Status: Current every day smoker Packs per day: 1 Smokeless Tobacco Status: No Alcohol use: none Drug use: none Occupational status: disabled Current living situation: Home, With Family Activity Level: Uses cane/walker Recent Out of Country Travel Within the Last 8 Weeks: No Exposure or Possible Exposure to Illness During Travel: No - Family History Mother Family Member Ethnicity: Non- Living Status: Still Living Hx Family Cardiac Disorders: Yes Hx Family Endocrine Disorder: Yes (type 2 diabetes) Father Family Member Ethnicity: Non- Living Status: Still Living Hx Family Endocrine Disorder: Yes (type 2 diabetes) Infectious Disease-CN:Meds Atorvastatin Calcium [Lipitor] 80 mg PO DAILY 08/21/16 [History] Clopidogrel [Plavix] 75 mg PO DAILY 08/21/16 [History] Ferrous Sulfate 325 mg PO BIDWM 08/21/16 [History] Gabapentin [Neurontin] 300 mg PO BID 08/21/16 [History] Lisinopril [Zestril] 10 mg PO DAILY 08/21/16 [History] Magnesium Oxide [Magnesium] 400 mg PO DAILY 08/21/16 [History] Nitroglycerin [Nitrostat] 0.4 mg SL Q5M PRN 08/21/16 [History] Ranitidine HCl [Acid Trade Specialist] 150 mg PO BID 08/21/16 [History] Sertraline [Zoloft] 100 mg PO DAILY 08/21/16 [History] Metformin HCl [Glucophage] 1,000 mg PO BID 03/28/17 [History] Insulin ASPART [NovoLOG] 0 unit SQ TIDWM 06/19/17 [History] Sennosides [Senna] 8.6 mg PO DAILY 06/19/17 [History] Hydrochlorothiazide [Microzide] 12.5 mg PO DAILY 12/30/17 [History] Insulin Glargine,Hum.rec.anlog [Basaglar Kwikpen U-100] 60 unit SQ QAM 12/30/17 [History] 3 Allergy/AdvReac Type Severity Reaction Status Date / Time Hydromorphone [From Dilaudid] Allergy Palpitation Verified 03/28/17 10:45 s heparin AdvReac See Verified 03/28/17 16:53 Comments All systems: reviewed and no additional remarkable complaints except as stated Exam - Constitutional Vitals: Temp Pulse Resp BP Pulse Ox 97.7 F 72 18 121/70 98 01/01/18 10:25 01/01/18 10:25 01/01/18 10:25 01/01/18 10:25 01/01/18 10:25 General appearance: cooperative, morbidly obese, no acute distress - Head Head exam: Present: atraumatic, normal inspection, normocephalic - Eye Eye exam: Present: EOMI, normal appearance, PERRL Pupils: Present: normal accommodation - ENT ENT exam: Present: mucous membranes moist - Neck Neck exam: Present: normal inspection - Respiratory Respiratory exam: Present: CTAB. Absent: rales, respiratory distress, rhonchi, wheezes - Cardiovascular Cardiovascular exam: Present: RRR, +S1, +S2 - GI/Abdominal GI/Abdominal exam: Present: distended (morbidly obese), normal bowel sounds, soft. Absent: tenderness - Extremities Exam Extremities exam: Present: pedal edema (1+ RLE). Absent: joint swelling, tenderness Additional comments: Stage IV ulcer noted to the right calcaneus with bone exposed. Mild maceration of the surrounding skin. No erythema, warmth, fluctuance, or purulent drainage. No foul odor. Erythema to the RLE appears markedly improved and receded from previous skin markings. Superficial scabbed abrasions noted to the medial aspect of the lower portion of the right leg. - Neurological Exam Neurological exam: Present: alert, oriented X3, no focal deficits - Psychiatric Psychiatric exam: Present: normal affect, normal mood - Skin Skin exam: Present: dry, intact, normal color, warm Infectious Disease CN: Results - Labs CBC & Chem 7: 01/01/18 04:53 01/01/18 04:53 Cultures: Cultures 12/29/17 21:32 Blood Culture - Preliminary Peripheral Venipuncture Gram Positive Cocci - Chains 12/29/17 21:36 Blood Culture - Preliminary Peripheral Venipuncture No growth. Serology: Serology 12/29/17 Range/Units 21:32 A. baumannii (PCR) Not Detected (Not Detect) Fina albicans (PCR) Not Detected (Not Detect) C. glabrata (PCR) Not Detected (Not Detect) C. krusei (PCR) Not Detected (Not Detect) C. parapsilosis (PCR) Not Detected (Not Detect) C. tropicalis (PCR) Not Detected (Not Detect) Enterobacteriac sp PCR Not Detected (Not Detect) E. cloacae complex PCR Not Detected (Not Detect) Enterococcus sp PCR Not Detected (Not Detect) E. coli (PCR) Not Detected (Not Detect) H. influenzae (PCR) Not Detected (Not Detect) Klebsiella oxytoca PCR Not Detected (Not Detect) Klebsiella pneumoniae Not Detected (Not Detect) List. monocytogenes PCR Not Detected (Not Detect) N. meningitidis (PCR) Not Detected (Not Detect) Proteus species (PCR) Not Detected (Not Detect) Serratia marcescens PCR Not Detected (Not Detect) Staphylococcus sp PCR Not Detected (Not Detect) Staph aureus (PCR) Not Detected (Not Detect) Streptococcus sp PCR DETECTED A (Not Detect) Group A Strep DNA Not Detected (Not Detect) Group B Strep (PCR) Not Detected (Not Detect) Strep pneumoniae (PCR) Not Detected (Not Detect) P. aeruginosa (PCR) Not Detected (Not Detect) Consult Discharge Plan - Plan Referrals: Matteo Love MD [Primary Care Provider] - - Attending Attestation I examined this patient and my medical decision-making was reviewed with the Resident Physician. I agree with the documented findings, disposition and treatment plan as described except to the extent set forth below. This is an addendum to original report dictated by Magalys Ramos CNP. Please refer to Charli note for full details. Patient is a 52-year-old woman with past medical history mentioned below was admitted for nonhealing diabetic foot ulcer on the right heel with associated to chronic osteomyelitis and cellulitis. When patient arrived she was in severe sepsis including SIRS criteria, sepsis and lactic acidosis. Patient was started on broad-spectrum antibiotics. Cultures obtained from the blood grew Streptococcus species that is not group a, group B or strep pneumo. One set only. Previous cultures of the wound of the foot grew Escherichia coli and pseudomonas aeruginosa that is pansensitive. We were asked to evaluate the patient and make further recommendations. Currently patient sitting up in chair states that she feels much better. Pleasant comfortable no acute distress. Power glide has been placed in the right upper extremity. Assessment and plan: Sepsis line bacteremia with Streptococcus species Cellulitis of the right lower extremity Chronic osteomyelitis involving lower leg and [place] lactic acidosis Nonhealing ulcer Diabetes mellitus type 2 poorly controlled with the last hemoglobin A1c of around 12 Tobacco abuse Chronic kidney disease stage III Peripheral neuropathy Peripheral artery disease Recommendations: Currently patient is on vancomycin and Zosyn. Based on current culture and previous culture results I believe we should switch the patient to combination of penicillin and levofloxacin. Duration of treatment at least 2 weeks for the bacteremia. I did speak with Dr. Walker to see if he can debridement the exposed bone on the right heel. We will discuss and see what his recommendations are. While on antibiotics patient needs to check weekly CBC, BMP, ESR and CRP Power glide has been placed we will make sure repeat cultures are negative if they continue to be positive the Parlodel probably has to, Patient will need to follow-up with us in clinic as an outpatient.
--- NOTE | 2018-01-01 13:35 | Internal Med Progress Note ---
Date of Encounter: 01/01/18 Time of Encounter: 13:52 - Assessment and plan (1) Sepsis Current Visit: Yes Status: Acute Assessment and plan: With right foot ulcer and underlying chronic osteomyelitis with cellulitis. Continue IV antibiotics. WBC count is improving. Follow podiatry recommendations. Blood cultures in 1 of 2 vials positive for strep species. Repeat blood cultures 12/31 obtained Appreciate ID recommendations. Awaiting sensitivities of cultures. Moderate risk for complications. Qualifiers: Sepsis type: sepsis due to unspecified organism Qualified Code(s): A41.9 - Sepsis, unspecified organism (2) Cellulitis of right lower extremity Current Visit: Yes Status: Acute Assessment and plan: With chronic right foot ulcer. Continue IV antibiotics. Follow podiatry recommendations and ID (3) Chronic osteomyelitis Current Visit: Yes Status: Chronic Assessment and plan: Podiatry and ID following; recommendations appreciated. (4) Type 2 diabetes mellitus Current Visit: Yes Status: Chronic Assessment and plan: Diabetic diet, Levemir, ISS Qualifiers: Diabetes mellitus fdc insulin use: with fdc use Diabetes mellitus complication status: with circulatory complication Diabetes mellitus complication detail: with other circulatory complications Qualified Code(s): E11.59 - Type 2 diabetes mellitus with other circulatory complications; Z79.4 - correction (current) use of insulin (5) Hyponatremia Current Visit: Yes Status: Chronic Assessment and plan: Likely due to hydrochlorothiazide use. Continue to hold HCTZ, improved after holding. (6) Hyperlipidemia Current Visit: No Status: Chronic Assessment and plan: Continue atorvastatin Qualifiers: Hyperlipidemia type: mixed hyperlipidemia Qualified Code(s): E78.2 - Mixed hyperlipidemia (7) Lactic acidosis Current Visit: Yes Status: Resolved Assessment and plan: Due to sepsis. Now resolved (8) CKD (chronic kidney disease) stage 3, GFR 30-59 ml/min Current Visit: Yes Status: Chronic Assessment and plan: Renal function at baseline. Lisinopril resumed, HCTZ continue to hold. Renal function stable. (9) Hypertension Current Visit: Yes Status: Chronic Assessment and plan: ontinue lisinopril BP stable HCTZ held because of hypnatremia, which is now improving. Qualifiers: Hypertension type: essential hypertension Qualified Code(s): I10 - Essential (primary) hypertension (10) Chronic diastolic heart failure Current Visit: Yes Status: Chronic Assessment and plan: 2-D echocardiogram done in 2016 showed EF of 60% with mild diastolic dysfunction. Repeat echocadriogram during this admission showed no acute changes. No acute exacerbation/SOB (11) DVT prophylaxis Current Visit: Yes Status: Acute Assessment and plan: Lovenox 30 mg daily. - Time Spent With Patient Total time spent is greater than 50% in coordination of care (as documented) at patient's floor/unit and/or counseling patient: - Subjective Interval history: Patient states redness and pain significantly improved from admission.. She not having any fevers/chills, n/v. - Constitutional Vitals: Temp Pulse Resp BP Pulse Ox 97.7 F 72 18 121/70 98 01/01/18 10:25 01/01/18 10:25 01/01/18 10:25 01/01/18 10:25 01/01/18 10:25 General appearance: Present: cooperative, mild distress, A&O X 3, morbidly obese , pleasant, answers questions appropriately Exam: - Respiratory Respiratory exam: Present: decreased breath sounds (Diminished at both bases), prolonged expiratory phase. Absent: accessory muscle use, rales, rhonchi, wheezes - Cardiovascular Cardiovascular exam: Present: RRR, +S1, +S2. Absent: diastolic murmur, gallop, rubs, systolic murmur - GI/Abdominal GI/Abdominal exam: Present: normal bowel sounds, soft, no peritoneal signs. Absent: distended, tenderness - Extremities Exam Extremities exam: Present: pedal edema, warm, radial pulses palpable and symmetrical. Absent: calf tenderness, cyanotic Additional comments: Dressing over right foot clean. Edema of right leg noted. Erythema of right leg is below demarcted line. - Neurological Exam Neurological exam: Present: alert, oriented X3, no focal deficits. Absent: facial droop, speech deficit - Skin Skin exam: Present: dry, erythema, intact Internal Medicine: Result - Labs CBC & Chem 7: 01/01/18 04:53 01/01/18 04:53 Labs: Short CBC 01/01/18 Range/Units 04:53 WBC 10.4 (4.3-11.1) K/mcL Hgb 9.1 L (11.5-15.4) g/dL Hct 29.7 L (35.3-44.9) % Plt Count 292 (140-400) K/mcL Neutrophils # 8.0 (1.6-8.9) K/mcL BMP 01/01/18 04:53 Sodium 133 L Potassium 4.1 Chloride 107 Carbon Dioxide 20 L BUN 21 H Creatinine 1.33 H Glucose 179 H Calcium 8.3 L - ABG Interpretation ABG results: PT/INR, D-dimer PT 12.7 Seconds (9.4-12.1) H 12/29/17 21:32 Consult Discharge Plan - Plan Referrals: Matteo Love MD [Primary Care Provider] -
[2018-01-01] MEDS: Ampicillin/Sulbactam 3,000 MG in 0.9 % Sodium Chloride Mini Bag 100 ML IVPB SCH (18:00)
[2018-01-02] MEDS: Ampicillin/Sulbactam 3,000 MG in 0.9 % Sodium Chloride Mini Bag 100 ML IVPB SCH ×2 (00:58→06:19)
[2018-01-02] MEDS: *HR* Enoxaparin 30 MG/0.3 ML SYRINGE SQ SCH (06:02)
[2018-01-02] MEDS: Gabapentin 300 MG CAPSULE PO SCH ×2 (09:13→21:32)
[2018-01-02] MEDS: Famotidine 20 MG TABLET PO SCH ×2 (09:14→17:36)
[2018-01-02] MEDS: Insulin LISPRO 300 UNITS/3 ML VIAL SQ SCH ×5 (09:14→21:31)
[2018-01-02] MEDS: Insulin DETEMIR 100 UNIT/ML X5UNITS SQ SCH (09:15)
[2018-01-02] MEDS: Sennosides 8.6 MG TABLET PO SCH (09:15)
[2018-01-02 10:35] LABS: Hematocrit 29.6 % (35.3-44.9); Hemoglobin 9.6 g/dL (11.5-15.4); Mean Corpuscular HGB Conc 32.4 g/dL (31.6-35.5); Mean Corpuscular Hemoglobin 27.3 pg (28.0-33.3); Mean Corpuscular Volume 84.1 fL (83.0-100.0); Mean Platelet Volume 10.2 fL (9.4-12.4); Platelet Count 291 K/mcL (140-400); Red Blood Count 3.52 M/mcL (3.82-4.97); Red Cell Distribution Width 15.9 % (11.5-14.5)
[2018-01-02 10:50] LABS: Calcium 8.7 mg/dL (8.6-10.3); Potassium 4.5 mEq/L (3.5-5.1)
--- NOTE | 2018-01-02 10:55 | Infectious Disease Progress No ---
Date of Encounter: 01/02/18 Time of Encounter: 10:53 - Assessment and Plan (1) Sepsis Current Visit: Yes Status: Acute Severe sepsis: The patient had three SIRS criteria plus lactic acidosis. Likely secondary to RLE cellulitis and bacteremia. Improved. WBC has normalized. Tachycardia has resolved. Afebrile x 48 hours. Repeat lactic acid normal. Blood cultures drawn 12/29/17 were positive 1/2 sets for GPC in chains, Strep species per PCR. Repeat blood cultures drawn 12/31/17 are NGTD x 2 sets. Qualifiers: Qualified Code(s): A41.9 - Sepsis, unspecified organism (2) Bacteremia Current Visit: Yes Status: Acute Causative organism: Strep species. Source likely the RLE cellulitis. Blood cultures drawn 12/29/17 are positive 1/2 sets for Strep species per PCR. Final ID and sensitivities are pending. Repeat blood cultures drawn 12/31/17 are NGTD x 2 sets. No endocarditis stigmata noted on exam. The patient has two minor Modified Santos's Criteria. TTE negative for valvular vegetations. Low index of suspicion for IE. Will await final ID before deciding whether or not a MARILUZ is needed. Discontinue Unasyn. Start PCN G 2 million units IV Q4H. Will switch to 12 million units IV Q24H via continuous IV infusion on discharge. Start Levaquin 750mg IV daily. Can switch to PO when ready for discharge. Duration of treatment depends on the clinical picture, but likely 14 days from the first set of negative blood cultures. We will see the patient in the office prior to her completing her IV antibiotics and base duration on clinical status. Treat through at least 01/13/18. Monitor renal function and dose-adjust antibiotics. Will need weekly CBC, BUN/Cr, ESR, and CRP. Will need weekly EPIV care. Follow up with ID 01/13/18 at 0900. (3) Cellulitis of right lower extremity Current Visit: Yes Status: Acute Location: Right lower leg and foot. Causative organism unclear, but likely Strep species given the blood culture results. Non-purulent. Likely secondary to chronic right heel ulcer. X-ray of the right foot and ankle showed findings consistent with chronic OM of the right calcaneus. Clinically improved. ESR 90, CRP 103. Continue antibiotics as stated above. Will do PCN and Levaquin as above for now in case the infection is polymicrobial. Duration of treatment depends on the clinical picture. (4) Chronic osteomyelitis involving lower leg Current Visit: Yes Status: Acute Location: Right calcaneus. Clinically, the wound does not look acutely infected. Discussed with Podiatry who does not feel that the patient has an acute infection. Apparently, the patient has refused surgical intervention by out Podiatry team in the past. If patient agreeable, consider subtotal calcanectomy as recommended by Dr. Walker. Continue wound care per the Podiatry team. Qualifiers: Qualified Code(s): M86.661 - Other chronic osteomyelitis, right tibia and fibula (5) Lactic acidosis Current Visit: Yes Status: Resolved Secondary to sepsis. Resolved. (6) Non-healing ulcer Current Visit: No Status: Acute Location: Right heel. Etiology unclear, but likely non-healing is multifactorial: uncontrolled DM, PAD , obesity, tobacco abuse. Podiatry consulted and following. Wound care and activity restrictions per the Podiatry team. Qualifiers: Qualified Code(s): L98.499 - Non-pressure chronic ulcer of skin of other sites with unspecified severity (7) Hyponatremia Current Visit: Yes Status: Chronic (8) Peripheral arterial disease Current Visit: Yes Status: Acute Status post angioplasty in 2015 at [facility]. ABIs consistent with mild disease bilaterally. TCPO2 monitoring showed findings consistent with healing in the bilateral feet and left ankle and findings consistent with non-healing in the right ankle. (9) Type 2 diabetes mellitus Current Visit: Yes Status: Chronic Uncontrolled. HgbA1C 10.4%. Recommend aggressive glucose monitoring and control to promote wound healing and prevent re-infection. Management per the primary team. 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 (12) CKD (chronic kidney disease) stage 3, GFR 30-59 ml/min Current Visit: Yes Status: Chronic Likely secondary to poorly-controlled DM. Continue to trend. Dose-adjust antibiotics. Strict I's and O's. Avoid nephrotoxins as able. - Subjective Interval history: Patient seen and examined. No acute events noted overnight. Patient resting quietly in bed. Denies fevers, chills, or rigors. Denies chest pain, shortness of breath, or cough. Denies nausea, vomiting, diarrhea, or constipation. Denies abdominal pain, urinary complaints, or appetite changes. Denies pain in the feet or lower extremities. Denies oral thrush or any skin lesions. Infect Dis PN-Objective Data - Labs CBC & Chem 7: 01/02/18 09:53 01/02/18 09:53 Labs: Laboratory Results - last 24 hr 01/01/18 01/01/18 01/01/18 04:53 04:53 11:15 ESR 90 H Sodium 133 L Potassium 4.1 Chloride 107 Carbon Dioxide 20 L BUN 21 H Creatinine 1.33 H Est GFR ( Amer) 51 L Est GFR (Non-Af Amer) 42 L BUN/Creatinine Ratio 16 Glucose 179 H POC Glucose 252 H Calculated Osmolality 283 Calcium 8.3 L C-Reactive Protein 103 H 01/01/18 01/01/18 01/02/18 16:19 20:27 08:05 ESR Sodium Potassium Chloride Carbon Dioxide BUN Creatinine Est GFR ( Amer) Est GFR (Non-Af Amer) BUN/Creatinine Ratio Glucose POC Glucose 273 H 313 H 127 H Calculated Osmolality Calcium C-Reactive Protein 01/02/18 09:53 ESR Sodium 133 L Potassium 4.5 Chloride 106 Carbon Dioxide 21 L BUN 22 H Creatinine 1.36 H Est GFR ( Amer) 49 L Est GFR (Non-Af Amer) 41 L BUN/Creatinine Ratio 16 Glucose 231 H POC Glucose Calculated Osmolality 287 Calcium 8.7 C-Reactive Protein Cultures: Cultures 12/31/17 12:45 Blood Culture - Preliminary Peripheral Venipuncture No growth. 12/31/17 12:45 Blood Culture - Preliminary Peripheral Venipuncture No growth. Exam - Constitutional Vitals: Temp Pulse Resp BP Pulse Ox 97.5 F L 62 18 156/83 99 01/02/18 08:11 01/02/18 08:11 01/02/18 08:11 01/02/18 09:03 01/02/18 08:11 General appearance: cooperative, morbidly obese, no acute distress - Head Head exam: Present: atraumatic, normal inspection, normocephalic - Eye Eye exam: Present: EOMI, normal appearance, PERRL Pupils: Present: normal accommodation Additional comments: No subconjunctival hemorrhage noted. - ENT ENT exam: Present: mucous membranes moist - Neck Neck exam: Present: normal inspection - Respiratory Respiratory exam: Present: CTAB. Absent: rales, respiratory distress, rhonchi, wheezes - Cardiovascular Cardiovascular exam: Present: RRR, +S1, +S2 - GI/Abdominal GI/Abdominal exam: Present: distended (Obese), normal bowel sounds, soft. Absent: tenderness - Extremities Exam Extremities exam: Present: pedal edema (1+ RLE). Absent: joint swelling, normal inspection (Mild erythema noted, improved.), tenderness Additional comments: Right foot dressing C/D/I. - Neurological Exam Neurological exam: Present: alert, oriented X3, no focal deficits - Psychiatric Psychiatric exam: Present: normal affect, normal mood - Skin Skin exam: Present: dry, intact, normal color, warm - Additional findings Additional findings: Powerglide noted to the RUE with transparent dressing C/D/I. Consult Discharge Plan - Plan [facility] [place] [Primary Care Provider[facility] - - Attending Attestation I examined this patient and my medical decision-making was reviewed with the Resident Physician. I agree with the documented findings, disposition and treatment plan as described except to the extent set forth below.
[2018-01-02] MEDS ORDERED: Levofloxacin 750 MG/150 ML 750 MG/150 ML BAG IVPB SCH (12:00)
[2018-01-02 12:49] LABS: Eosinophils # 0.4 K/mcL (0.0-0.6); Monocytes # 0.4 K/mcL (0.0-1.3); Neutrophils # 8.2 K/mcL (1.6-8.9)
[2018-01-02 12:50] LABS: Platelet Estimate Normal (Normal)
[2018-01-02 12:51] LABS: Anisocytosis 1+ (Not Present); Poikilocytosis 1+ (Not Present); Reactive Lymphocytes Present (Not Present)
[2018-01-02] MEDS: Penicillin G Potassium 2,000,000 UNIT in D5% in Water 100 ML IVPB SCH ×3 (13:27→21:30)
[2018-01-02] MEDS ORDERED: Aminoglycoside Consult 1 EACH MC ONE (13:42)
[2018-01-02] MEDS ORDERED: Lisinopril 20 MG TABLET PO SCH (17:11)
--- NOTE | 2018-01-02 17:15 | Internal Med Progress Note ---
Date of Encounter: 01/02/18 Time of Encounter: 17:07 - Assessment and plan (1) Sepsis Current Visit: Yes Status: Acute Assessment and plan: With right foot ulcer and underlying chronic osteomyelitis with cellulitis. Continue IV antibiotics. WBC count is now within normal limits Follow podiatry recommendations. Blood cultures in 1 of 2 vials positive for strep species. Repeat blood cultures 12/31 obtained - negative to date Appreciate ID recommendations. - Switching to penicillin G and Levaquin, Unasyn discontinued. - Need to arrange for home set up tomorrow. Moderate risk for complications. Qualifiers: Sepsis type: sepsis due to unspecified organism Qualified Code(s): A41.9 - Sepsis, unspecified organism (2) Cellulitis of right lower extremity Current Visit: Yes Status: Acute Assessment and plan: With chronic right foot ulcer. Continue IV antibiotics. Follow podiatry recommendations and ID (3) Chronic osteomyelitis Current Visit: Yes Status: Chronic Assessment and plan: Podiatry and ID following; recommendations appreciated. (4) Hypertension Current Visit: Yes Status: Chronic Assessment and plan: ontinue lisinopril BP stable HCTZ held because of hypnatremia, which is now improving. Will increase lisinopril to 20 mg, states BP is high when she is stressed. Likely on discharge go back to 10 mg daily and HCTZ (if sodium tolerates). If sodium too low for HCTZ, on discharge will prescribe 20 mg daily of lisinopril. 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 Continue to hold HCTZ, improved after holding. (7) Hyperlipidemia Current Visit: No Status: Chronic Assessment and plan: Continue atorvastatin Qualifiers: Hyperlipidemia type: mixed hyperlipidemia Qualified Code(s): E78.2 - Mixed hyperlipidemia (8) Lactic acidosis Current Visit: Yes Status: Resolved Assessment and plan: Due to sepsis. Now resolved (9) CKD (chronic kidney disease) stage 3, GFR 30-59 ml/min Current Visit: Yes Status: Chronic Assessment and plan: Renal function at baseline. Lisinopril resumed, HCTZ continue to hold. Renal function stable. (10) Chronic diastolic heart failure Current Visit: Yes Status: Chronic Assessment and plan: 2-D echocardiogram done in 2016 showed EF of 60% with mild diastolic dysfunction. Repeat echocadriogram during this admission showed no acute changes. No acute exacerbation/SOB (11) DVT prophylaxis Current Visit: Yes Status: Acute Assessment and plan: Lovenox 30 mg daily. - Time Spent With Patient Total time spent is greater than 50% in coordination of care (as documented) at patient's floor/unit and/or counseling patient: - Subjective Interval history: Denies any fevers/chills, n/v. Leg erythema continues to improve per patient. - Constitutional Vitals: Temp Pulse Resp BP Pulse Ox 97.4 F L 68 16 176/82 99 01/02/18 16:48 01/02/18 16:48 01/02/18 16:48 01/02/18 16:48 01/02/18 16:48 General appearance: Present: cooperative, mild distress, A&O X 3, morbidly obese , pleasant, answers questions appropriately Exam: - Respiratory Respiratory exam: Present: decreased breath sounds (Diminished at both bases), prolonged expiratory phase. Absent: accessory muscle use, rales, rhonchi, wheezes - Cardiovascular Cardiovascular exam: Present: RRR, +S1, +S2. Absent: diastolic murmur, gallop, rubs, systolic murmur - GI/Abdominal GI/Abdominal exam: Present: normal bowel sounds, soft, no peritoneal signs. Absent: distended, tenderness - Extremities Exam Extremities exam: Present: pedal edema, warm, radial pulses palpable and symmetrical. Absent: calf tenderness, cyanotic Additional comments: Dressing over right foot clean. Edema of right leg noted. Erythema of right leg is below demarcted line. - Neurological Exam Neurological exam: Present: alert, oriented X3, no focal deficits. Absent: facial droop, speech deficit - Skin Skin exam: Present: dry, erythema, intact Internal Medicine: Result - Labs CBC & Chem 7: 01/02/18 09:53 01/02/18 09:53 Labs: Short CBC 01/02/18 Range/Units 09:53 WBC 10.0 (4.3-11.1) K/mcL Hgb 9.6 L (11.5-15.4) g/dL Hct 29.6 L (35.3-44.9) % Plt Count 291 (140-400) K/mcL Neutrophils # 8.2 (1.6-8.9) K/mcL BMP 01/01/18 01/02/18 04:53 09:53 Sodium 133 L 133 L Potassium 4.1 4.5 Chloride 107 106 Carbon Dioxide 20 L 21 L BUN 21 H 22 H Creatinine 1.33 H 1.36 H Glucose 179 H 231 H Calcium 8.3 L 8.7 - ABG Interpretation ABG results: PT/INR, D-dimer PT 12.7 Seconds (9.4-12.1) H 12/29/17 21:32 Consult Discharge Plan - Plan Referrals: Matteo Love MD [Primary Care Provider] -
[2018-01-03] MEDS: Penicillin G Potassium 2,000,000 UNIT in D5% in Water 100 ML IVPB SCH ×2 (00:37→04:55)
[2018-01-03 05:00] LABS: Basophils % 0.3 %; Eosinophils # 0.1 K/mcL (0.0-0.6); Eosinophils % 1.5 %; Hematocrit 29.4 % (35.3-44.9); Hemoglobin 9.5 g/dL (11.5-15.4); Immature Granulocytes % 0.8 % (0-4); Lymphocytes # 1.3 K/mcL (0.6-4.6); Lymphocytes % 14.6 %; Mean Corpuscular HGB Conc 32.3 g/dL (31.6-35.5); Mean Corpuscular Hemoglobin 27.4 pg (28.0-33.3); Mean Corpuscular Volume 84.7 fL (83.0-100.0); Mean Platelet Volume 9.9 fL (9.4-12.4); Monocytes # 0.8 K/mcL (0.0-1.3); Monocytes % 8.9 %; Neutrophils # 6.7 K/mcL (1.6-8.9); Nucleated Red Blood Cells 0.2 /100 WBC (0); Platelet Count 340 K/mcL (140-400); Red Blood Count 3.47 M/mcL (3.82-4.97); Red Cell Distribution Width 15.9 % (11.5-14.5); Segmented Neutrophils % 73.9 %
[2018-01-03] MEDS: *HR* Enoxaparin 30 MG/0.3 ML SYRINGE SQ SCH (05:22)
[2018-01-03 05:23] LABS: Hypochromasia Present (Not Present); Potassium 4.5 mEq/L (3.5-5.1)
[2018-01-03 05:24] LABS: Platelet Estimate Normal (Normal)
[2018-01-03] MEDS: Gabapentin 300 MG CAPSULE PO SCH (09:05)
[2018-01-03] MEDS: Sennosides 8.6 MG TABLET PO SCH (09:05)
[2018-01-03] MEDS: Famotidine 20 MG TABLET PO SCH (09:05)
[2018-01-03] MEDS: Insulin DETEMIR 100 UNIT/ML X5UNITS SQ SCH (09:06)
[2018-01-03] MEDS: Insulin LISPRO 300 UNITS/3 ML VIAL SQ SCH ×4 (09:07→12:39)
[2018-01-03] MEDS: Penicillin G Potassium 2,000,000 UNIT in 0.9 % Sodium Chloride 100 ML IVPB SCH ×2 (09:09→11:45)
--- NOTE | 2018-01-03 10:15 | Infectious Disease Progress No ---
Date of Encounter: 01/03/18 Time of Encounter: 10:12 - Assessment and Plan (1) Sepsis Current Visit: Yes Status: Acute Severe sepsis: The patient had three SIRS criteria plus lactic acidosis. Likely secondary to RLE cellulitis and bacteremia. Improved. WBC has normalized. Tachycardia has resolved. Afebrile. Repeat lactic acid normal. Blood cultures drawn 12/29/17 were positive 1/2 sets for S. mitis/oralis and S. anginosus. Repeat blood cultures drawn 12/31/17 are NGTD x 2 sets. Qualifiers: Sepsis type: sepsis due to unspecified organism Qualified Code(s): A41.9 - Sepsis, unspecified organism (2) Bacteremia Current Visit: Yes Status: Acute Causative organism: Strep species. Source likely the RLE cellulitis. Blood cultures drawn 12/29/17 are positive 1/2 sets for Strep mitis/oralis and S. anginosus. Repeat blood cultures drawn 12/31/17 are NGTD x 2 sets. No endocarditis stigmata noted on exam. The patient has two minor Modified Santos's Criteria. TTE negative for valvular vegetations. Low index of suspicion for IE. Will defer MARILUZ based on species of strep. Continue PCN G 2 million units IV Q4H. Will switch to 12 million units IV Q24H via continuous IV infusion on discharge. Continue Levaquin 750mg IV daily. Can discontinue on discharge. Duration of treatment depends on the clinical picture, but likely 14 days from the first set of negative blood cultures. We will see the patient in the office prior to her completing her IV antibiotics and base duration on clinical status. Treat through at least 01/13/18. Monitor renal function and dose-adjust antibiotics. Will need weekly CBC, BUN/Cr, ESR, and CRP. Will need weekly EPIV care. Follow up with ID 01/13/18 at 0900. (3) Cellulitis of right lower extremity Current Visit: Yes Status: Acute Location: Right lower leg and foot. Causative organism unclear, but likely Strep species given the blood culture results. Non-purulent. Likely secondary to chronic right heel ulcer. X-ray of the right foot and ankle showed findings consistent with chronic OM of the right calcaneus. Clinically improved. ESR 90, CRP 103. Continue antibiotics as stated above. Duration of treatment depends on the clinical picture. (4) Chronic osteomyelitis involving lower leg Current Visit: Yes Status: Acute Location: Right calcaneus. Clinically, the wound does not look acutely infected. Discussed with Podiatry who does not feel that the patient has an acute infection. Apparently, the patient has refused surgical intervention by our Podiatry team in the past. If patient agreeable, consider subtotal calcanectomy as recommended by Dr. Walker. Continue wound care per the Podiatry team. Qualifiers: Laterality: right Qualified Code(s): M86.661 - Other chronic osteomyelitis , right tibia and fibula (5) Lactic acidosis Current Visit: Yes Status: Resolved Secondary to sepsis. Resolved. (6) Non-healing ulcer Current Visit: No Status: Acute Location: Right heel. Etiology unclear, but likely non-healing is multifactorial: uncontrolled DM, PAD , obesity, tobacco abuse. Podiatry consulted and following. Wound care and activity restrictions per the Podiatry team. Qualifiers: Non-pressure ulcer stage: unspecified non-pressure ulcer stage Qualified Code(s): L98.499 - Non-pressure chronic ulcer of skin of other sites with unspecified severity (7) Hyponatremia Current Visit: Yes Status: Chronic (8) Peripheral arterial disease Current Visit: Yes Status: Acute Status post angioplasty in 2015 at [facility]. ABIs consistent with mild disease bilaterally. TCPO2 monitoring showed findings consistent with healing in the bilateral feet and left ankle and findings consistent with non-healing in the right ankle. (9) Type 2 diabetes mellitus Current Visit: Yes Status: Chronic Uncontrolled. HgbA1C 10.4%. Recommend aggressive glucose monitoring and control to promote wound healing and prevent re-infection. Management per the primary team. 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 (12) CKD (chronic kidney disease) stage 3, GFR 30-59 ml/min Current Visit: Yes Status: Chronic Likely secondary to poorly-controlled DM. Continue to trend. Dose-adjust antibiotics. Strict I's and O's. Avoid nephrotoxins as able. - Subjective Interval history: Patient seen and examined. No acute events noted overnight. Patient sitting up on the side of the bed. Denies fevers, chills, or rigors. Denies chest pain , shortness of breath, or cough. Denies nausea, vomiting, diarrhea, or constipation. Denies abdominal pain, urinary complaints, or appetite changes. Denies pain in the feet or lower extremities. Denies oral thrush or any skin lesions. Reports bleeding from the right heel ulcer this morning, but has stopped. Infect Dis PN-Objective Data - Labs CBC & Chem 7: 01/03/18 04:28 01/03/18 04:28 Labs: Laboratory Results - last 24 hr 01/02/18 01/02/18 01/02/18 09:53 09:53 12:08 WBC 10.0 RBC 3.52 L Hgb 9.6 L Hct 29.6 L MCV 84.1 MCH 27.3 L MCHC 32.4 RDW 15.9 H Plt Count 291 MPV 10.2 Immature Gran % Seg Neutrophils % 82.0 Lymphocytes % 10.0 Monocytes % 4.0 Eosinophils % 4.0 Basophils % Neutrophils # 8.2 Lymphocytes # 1.0 Monocytes # 0.4 Eosinophils # 0.4 Basophils # Nucleated RBCs/100 WBC Reactive Lymphocytes Present A Platelet Estimate Normal Hypochromasia Poikilocytosis 1+ A Anisocytosis 1+ A Sodium 133 L Potassium 4.5 Chloride 106 Carbon Dioxide 21 L BUN 22 H Creatinine 1.36 H Est GFR ( Amer) 49 L Est GFR (Non-Af Amer) 41 L BUN/Creatinine Ratio 16 Glucose 231 H POC Glucose 203 H Calculated Osmolality 287 Calcium 8.7 01/02/18 01/02/18 01/03/18 16:46 19:53 04:28 WBC 9.1 RBC 3.47 L Hgb 9.5 L Hct 29.4 L MCV 84.7 MCH 27.4 L MCHC 32.3 RDW 15.9 H Plt Count 340 MPV 9.9 Immature Gran % 0.8 Seg Neutrophils % 73.9 Lymphocytes % 14.6 Monocytes % 8.9 Eosinophils % 1.5 Basophils % 0.3 Neutrophils # 6.7 Lymphocytes # 1.3 Monocytes # 0.8 Eosinophils # 0.1 Basophils # 0.0 Nucleated RBCs/100 WBC 0.2 H Reactive Lymphocytes Platelet Estimate Normal Hypochromasia Present A Poikilocytosis Anisocytosis Sodium Potassium Chloride Carbon Dioxide BUN Creatinine Est GFR ( Amer) Est GFR (Non-Af Amer) BUN/Creatinine Ratio Glucose POC Glucose 257 H 257 H Calculated Osmolality Calcium 01/03/18 01/03/18 04:28 08:18 WBC RBC Hgb Hct MCV MCH MCHC RDW Plt Count MPV Immature Gran % Seg Neutrophils % Lymphocytes % Monocytes % Eosinophils % Basophils % Neutrophils # Lymphocytes # Monocytes # Eosinophils # Basophils # Nucleated RBCs/100 WBC Reactive Lymphocytes Platelet Estimate Hypochromasia Poikilocytosis Anisocytosis Sodium 132 L Potassium 4.5 Chloride 106 Carbon Dioxide 20 L BUN 23 H Creatinine 1.19 Est GFR ( Amer) 58 L Est GFR (Non-Af Amer) 47 L BUN/Creatinine Ratio 19 Glucose 208 H POC Glucose 180 H Calculated Osmolality 284 Calcium 9.0 Cultures: Cultures 12/31/17 12:45 Blood Culture - Preliminary Peripheral Venipuncture No growth. 12/31/17 12:45 Blood Culture - Preliminary Peripheral Venipuncture No growth. Exam - Constitutional Vitals: Temp Pulse Resp BP Pulse Ox 97.6 F 65 16 144/81 98 01/03/18 08:24 01/03/18 08:24 01/03/18 08:24 01/03/18 08:24 01/03/18 08:24 General appearance: cooperative, morbidly obese, no acute distress - Head Head exam: Present: atraumatic, normal inspection, normocephalic - Eye Eye exam: Present: EOMI, normal appearance, PERRL Pupils: Present: normal accommodation - ENT ENT exam: Present: mucous membranes moist - Neck Neck exam: Present: normal inspection - Respiratory Respiratory exam: Present: CTAB. Absent: rales, respiratory distress, rhonchi, wheezes - Cardiovascular Cardiovascular exam: Present: RRR, +S1, +S2 - GI/Abdominal GI/Abdominal exam: Present: distended (obese), normal bowel sounds, soft. Absent: tenderness - Extremities Exam Extremities exam: Present: pedal edema (1+ BLE). Absent: joint swelling, tenderness Additional comments: Erythema improved. Right foot dressing C/D/I. - Neurological Exam Neurological exam: Present: alert, oriented X3, no focal deficits - Psychiatric Psychiatric exam: Present: normal affect, normal mood - Skin Skin exam: Present: dry, intact, normal color, warm Consult Discharge Plan - Plan Referrals: Matteo Love MD [Primary Care Provider] - Magalys Ramos CNP [Advanced Practice Nurse] - 01/13/18 9:00 am Prescriptions: Penicillin G Potassium [Pfizerpen] 12,000,000 unit IVPB DAILY #14 vial - Attending Attestation I examined this patient and my medical decision-making was reviewed with the Resident Physician. I agree with the documented findings, disposition and treatment plan as described except to the extent set forth below.
[2018-01-03 12:33] VITALS: BP 176/75
--- NOTE | 2018-01-03 13:09 | Discharge Summary ---
- NOTES TO OUTPATIENT PROVIDER Notes to Outpatient Provider: Follow-up with primary care in 4 days (holiday weekend). Follow-up with ID and Podiatry as scheduled. Orders not resulted at time of discharge: Pending orders 12/31/17 12:45 Culture,Blood [BC] Routine Date of Encounter: 01/03/18 Time of Encounter: 12:57 - Discharge Diagnosis (1) Sepsis Priority: Primary Status: Acute Qualifiers: Sepsis type: sepsis due to unspecified organism Qualified Code(s): A41.9 - Sepsis, unspecified organism (2) Cellulitis of right lower extremity Priority: Secondary Status: Acute (3) Chronic osteomyelitis Priority: Secondary Status: Chronic (4) Hypertension Priority: Secondary Status: Chronic Qualifiers: Hypertension type: essential hypertension Qualified Code(s): I10 - Essential (primary) hypertension (5) Type 2 diabetes mellitus Priority: Secondary Status: Chronic Qualifiers: Diabetes mellitus marine oil terminal superintendent insulin use: with marine oil terminal superintendent use Diabetes mellitus complication status: with circulatory complication Diabetes mellitus complication detail: with other circulatory complications Qualified Code(s): E11.59 - Type 2 diabetes mellitus with other circulatory complications; Z79.4 - custodial (current) use of insulin (6) Hyponatremia Priority: Secondary Status: Chronic (7) Hyperlipidemia Priority: Secondary Status: Chronic Qualifiers: Hyperlipidemia type: mixed hyperlipidemia Qualified Code(s): E78.2 - Mixed hyperlipidemia (8) Lactic acidosis Priority: Secondary Status: Resolved (9) CKD (chronic kidney disease) stage 3, GFR 30-59 ml/min Priority: Secondary Status: Chronic (10) Chronic diastolic heart failure Priority: Secondary Status: Chronic (11) DVT prophylaxis Priority: Secondary Status: Acute Hospital course: Ms. Mccallum is a 52 year old female with PMH nonhealing RLE diabetic foot ulcer , chronic R-calcaneous osteomyelitis, DM II, HTN , peripheral neuropathy, PVD who presents with fever and drainage from her wound VAC on the right lower extremity that was recently placed by Dr. Walker from podiatry in November. She sees podiatry for multiple other ones as well in the lower extremities of different stages. The patient has felt subjective fevers and chills and noticed bloody drainage from her wound VAC. In the ED laboratory workup showed elevated WBC count. Hemoglobin of 10.8. Sodium 127, and lactic acidosis 3.0. Imaging studies were done by x-ray of the lower extremities that showed stable appearance of the calcaneus with findings suspicious for chronic osteomyelitis. There was large soft tissue ulceration underlying the calcaneus concerning for cellulitis. The patient was given vancomycin and Zosyn and podiatry was consulted from the ED The patient was also given IV fluids per sepsis protocol and she responded well and lactic acidosis resolved. She did have positive blood cultures for Streptococcus. Repeat cultures were taken and were negative. Infectious disease was consulted. On discharge patient was switched to pencillin G and Levaquin in stable condition. - Time Spent with Patient Total time spent providing and/or coordinating discharge services: - Discharge Medications Prescriptions: Penicillin G Potassium [Pfizerpen] 12,000,000 unit IVPB DAILY #14 vial Home Medications: Atorvastatin Calcium [Lipitor] 80 mg PO DAILY 08/21/16 [History] Clopidogrel [Plavix] 75 mg PO DAILY 08/21/16 [History] Ferrous Sulfate 325 mg PO BIDWM 08/21/16 [History] Gabapentin [Neurontin] 300 mg PO BID 08/21/16 [History] Lisinopril [Zestril] 10 mg PO DAILY 08/21/16 [History] Magnesium Oxide [Magnesium] 400 mg PO DAILY 08/21/16 [History] Nitroglycerin [Nitrostat] 0.4 mg SL Q5M PRN 08/21/16 [History] Ranitidine HCl [Acid Business Intelligence Administrator] 150 mg PO BID 08/21/16 [History] Sertraline [Zoloft] 100 mg PO DAILY 08/21/16 [History] Metformin HCl [Glucophage] 1,000 mg PO BID 03/28/17 [History] Insulin ASPART [NovoLOG] 0 unit SQ TIDWM 06/19/17 [History] Sennosides [Senna] 8.6 mg PO DAILY 06/19/17 [History] Insulin Glargine,Hum.rec.anlog [Basaglar Kwikpen U-100] 60 unit SQ QAM 12/30/17 [History] Penicillin G Potassium [Pfizerpen] 12,000,000 unit IVPB DAILY #14 vial 01/03/18 [Rx] Allergies/Adverse Reactions: 3 Allergy/AdvReac Type Severity Reaction Status Date / Time Hydromorphone [From Dilaudid] Allergy Palpitation Verified 03/28/17 10:45 s heparin AdvReac See Verified 03/28/17 16:53 Comments Date of admission: 12/29/17 23:56 Primary care physician: Matteo Love MD Consults: 12/31/17 09:16 Consult to Invasive Line Access Team [CONS] Routine Reason for Consult: Picc Line Insertion Line Type: PICC 12/31/17 13:30 Consult to Infectious Diseases [CONS] Routine Consulting Provider: Infectious Disease [place] Reason for Consult: Chronic osteomyelitis. Call Completed: No 01/01/18 09:00 Consult to Invasive Line Access Team [CONS] Routine Reason for Consult: alf IV ATB use, vanc and zosyn, may need PICC later Line Type: EPIV Discharging clinician: Chang Johnston - Constitutional Vitals: Temp Pulse Resp BP Pulse Ox 97.6 F 64 15 176/75 99 01/03/18 12:32 01/03/18 12:32 01/03/18 12:32 01/03/18 12:32 01/03/18 12:32 General appearance: Present: cooperative, mild distress, A&O X 3, morbidly obese , pleasant, answers questions appropriately - Patient Status Disposition: Home Health Service Condition: Good Functional capacity at discharge: uses cane/walker Overall status at discharge: patient is progressing back to baseline - Discharge Instructions Follow Up With: Magalys Ramos CNP [Advanced Practice Nurse] - 01/13/18 9:00 am Matteo Love MD [Primary Care Provider] - - Diet and Activity Activity: other (as per Podiatry) Diet: diabetic diet
--- NOTE | 2018-01-03 13:18 | Physician Discharge Referral ---
Home Health/Hosp Referral Info Transfer to: Home Health Provider in Charge Post Discharge: PCP - Diagnosis (1) Sepsis Priority: Primary Status: Acute (2) Cellulitis of right lower extremity Priority: Secondary Status: Acute (3) Chronic osteomyelitis Priority: Secondary Status: Chronic (4) Hypertension Priority: Secondary Status: Chronic (5) Type 2 diabetes mellitus Priority: Secondary Status: Chronic (6) Hyponatremia Priority: Secondary Status: Chronic (7) Hyperlipidemia Priority: Secondary Status: Chronic (8) Lactic acidosis Priority: Secondary Status: Resolved (9) CKD (chronic kidney disease) stage 3, GFR 30-59 ml/min Priority: Secondary Status: Chronic (10) Chronic diastolic heart failure Priority: Secondary Status: Chronic (11) DVT prophylaxis Priority: Secondary Status: Acute - Respiratory Orders Smoking Cessation: Smoking cessation has been advised. For more information, call the Turn Quit Line at [phone]. - Diet/Nutrition Diet/Nutrition Orders: Cardiac, No Concentrated Sweets Diet/Nutrition: List: DIabetic - Activity Activity: List: As per Podiatry recommendations - Services Needed Following services are medically necessary services: Nursing, Occupational Therapy, Home Infusion - Transfer Medications Prescriptions: Penicillin G Potassium [Pfizerpen] 12,000,000 unit IVPB DAILY #14 vial Home Medications: Atorvastatin Calcium [Lipitor] 80 mg PO DAILY 08/21/16 [History] Clopidogrel [Plavix] 75 mg PO DAILY 08/21/16 [History] Ferrous Sulfate 325 mg PO BIDWM 08/21/16 [History] Gabapentin [Neurontin] 300 mg PO BID 08/21/16 [History] Lisinopril [Zestril] 10 mg PO DAILY 08/21/16 [History] Magnesium Oxide [Magnesium] 400 mg PO DAILY 08/21/16 [History] Nitroglycerin [Nitrostat] 0.4 mg SL Q5M PRN 08/21/16 [History] Ranitidine HCl [Acid Metal Tube Cutter] 150 mg PO BID 08/21/16 [History] Sertraline [Zoloft] 100 mg PO DAILY 08/21/16 [History] Metformin HCl [Glucophage] 1,000 mg PO BID 03/28/17 [History] Insulin ASPART [NovoLOG] 0 unit SQ TIDWM 06/19/17 [History] Sennosides [Senna] 8.6 mg PO DAILY 06/19/17 [History] Insulin Glargine,Hum.rec.anlog [Raulaglbarney Goodmanpen U-100] 60 unit SQ QAM 12/30/17 [History] Penicillin G Potassium [Pfizerpen] 12,000,000 unit IVPB DAILY #14 vial 01/03/18 [Rx] Allergies/Adverse Reactions: 3 Allergy/AdvReac Type Severity Reaction Status Date / Time Hydromorphone [From Dilaudid] Allergy Palpitation Verified 03/28/17 10:45 s heparin AdvReac See Verified 03/28/17 16:53 Comments Certification: Further, I certify that my clinical findings support that this patient is homebound (i.e. absences from home require considerable and taxing effort and are for medical reasons or congregational services or infrequently or short duration when for other reasons) because: Homebound Reason: Patient requires assistance of a person or device to safely leave home Attestation: My signature below is to certify that this patient is under my care and that I, or nurse practitioner, or a physician's editorial assistant working with me, has a face-to -face encounter with this patient.
== END 2018-01-03 13:43 | disposition home health service (06) | DRG 720 ==
LOC: EMEROO 20:45 → SUATTDRO 23:56 → 3ANU 23:56
PROVIDERS: ADMIT Internal Medicine; ATTEND Student in an Organized Health Care Education/Training Program

== ENCOUNTER 2018-01-29 11:30 | Inpatient (IN) ==
[2018-01-29 14:17] LABS: Estimated Average Glucose 249 mg/dl; Hemoglobin A1C 10.3 %
[2018-01-29 14:23] LABS: INR 1.2; Prothrombin Time 13.4 Seconds (9.4-12.1)
[2018-01-29 14:37] LABS: Basophils % 0.4 %; Eosinophils # 0.1 K/mcL (0.0-0.6); Eosinophils % 1.1 %; Hematocrit 32.1 % (35.3-44.9); Hemoglobin 9.8 g/dL (11.5-15.4); Immature Granulocytes % 0.8 % (0-4); Lymphocytes # 1.1 K/mcL (0.6-4.6); Lymphocytes % 10.5 %; Mean Corpuscular HGB Conc 30.5 g/dL (31.6-35.5); Mean Corpuscular Hemoglobin 25.8 pg (28.0-33.3); Mean Corpuscular Volume 84.5 fL (83.0-100.0); Mean Platelet Volume 9.7 fL (9.4-12.4); Monocytes # 1.1 K/mcL (0.0-1.3); Monocytes % 10.3 %; Neutrophils # 7.9 K/mcL (1.6-8.9); Platelet Count 365 K/mcL (140-400); Red Cell Distribution Width 15.8 % (11.5-14.5); Segmented Neutrophils % 76.9 %
[2018-01-29 15:02] LABS: Calcium 8.8 mg/dL (8.6-10.3); Potassium 4.3 mEq/L (3.5-5.1)
[2018-01-29] MEDS: Piperacillin/Tazobactam 3.375 GM in 0.9 % Sodium Chloride Mini Bag 100 ML IVPB SCH (15:11)
--- NOTE | 2018-01-29 17:03 | Podiatry History & Physical ---
History of Present Illness HPI: Ms. Mccallum is a 52 year old female with PMH nonhealing RLE diabetic foot ulcer , chronic R-calcaneous osteomyelitis, DM II, HTN , peripheral neuropathy, PVD who presents following wound care appointment with . Per patient presented with worsening appearance of the right heel wound and cellulitis of the LLE with lateral leg venous ulceration. She was sent for admission to [facility] on 01/29 for debridement of heel ulceration on 01/30/18 per Aaron Guy. She is unable to feel pain due to her chronic neuropathy. The patient denies any headache, or vision, nausea, vomiting, chest pain, shortness of breath, abdominal pain, diarrhea, constipation, urinary symptoms, or neurological symptoms. Patient was recently admitted on 12/29 and discharged on 01/03. On discharge patient was switched to pencillin G and Levaquin in stable condition. Patient will be admitted for medical medical management, IV antibiotics and OR tomorrow with for I&D. Patient will likely need ECF placement following discharge.Dressing is intact. Patient resting comfortably at this time. All Systems Reviewed: The remainder of the systems were reviewed and are negative - Constitutional Additional comments: awake, alert and oriented - Cardiovascular Cardiovascular: edema, leg edema, leg ulcers, pedal edema Additional comments: patient denies any sob or chest pain denies irregular heart beat - Respiratory Additional comments: denies any SOB, denies any sputum or cough Patient does admit to smoking - Musculoskeletal Additional comments: Patient denies any pain or weakness Does not BLE numbness due to neuropathy Past Med Surg Social Fam HX - Past Medical History Medical history: coronary artery disease, diabetes, GERD, hyperlipidemia, hypertension, peripheral artery disease, renal disease Psychiatric history: depression - Past Surgical History Surgical History: angioplasty/stent, orthopedic, other, other Additional surgical history: right foot surgery, tubes tied. - Social History Smoking Status: Current every day smoker Packs per day: 1 Smokeless Tobacco Status: No Alcohol use: none Drug use: none - Family History Mother Family Member Ethnicity: Non- Living Status: Still Living Hx Family Cardiac Disorders: Yes Hx Family Endocrine Disorder: Yes (type 2 diabetes) Father Family Member Ethnicity: Non- Living Status: Still Living Hx Family Endocrine Disorder: Yes (type 2 diabetes) Medications and Allergies Atorvastatin Calcium [Lipitor] 80 mg PO DAILY 08/21/16 [History] Clopidogrel [Plavix] 75 mg PO DAILY 08/21/16 [History] Ferrous Sulfate 325 mg PO BIDWM 08/21/16 [History] Gabapentin [Neurontin] 300 mg PO BID 08/21/16 [History] Lisinopril [Zestril] 10 mg PO DAILY 08/21/16 [History] Magnesium Oxide [Magnesium] 400 mg PO DAILY 08/21/16 [History] Nitroglycerin [Nitrostat] 0.4 mg SL Q5M PRN 08/21/16 [History] Ranitidine HCl [Acid Fabrics And Material Cutter] 150 mg PO BID 08/21/16 [History] Sertraline [Zoloft] 100 mg PO DAILY 08/21/16 [History] Metformin HCl [Glucophage] 1,000 mg PO BID 03/28/17 [History] Insulin ASPART [NovoLOG] 0 unit SQ TIDWM 06/19/17 [History] Sennosides [Senna] 8.6 mg PO DAILY 06/19/17 [History] Insulin Glargine,Hum.rec.anlog [Basaglar Kwikpen U-100] 60 unit SQ QAM 12/30/17 [History] Penicillin G Potassium [Pfizerpen] 12,000,000 unit IVPB DAILY #14 vial 01/03/18 [Rx] Acetaminophen [Tylenol] 650 mg PO Q6HR PRN #30 tablet 01/23/18 [Rx] 3 Allergy/AdvReac Type Severity Reaction Status Date / Time Hydromorphone [From Dilaudid] Allergy Palpitation Verified 01/23/18 22:11 s heparin AdvReac See Verified 01/23/18 22:11 Comments Physical Exam - Constitutional Vitals: Temp Pulse Resp BP Pulse Ox 98.8 F 83 16 119/74 98 01/29/18 15:03 01/29/18 15:03 01/29/18 15:03 01/29/18 15:03 01/29/18 15:03 Exam: General Examination: CONSTITUTIONAL: Alert, oriented, in no acute distress, non-toxic. EXTREMITIES: CFT 3 seconds all toes. Edema +1 and pedal pulses palpable. SKIN:see assessment NEUROLOGIC: Absent sensation to light or moderate touch. - Eye Eye exam: Present: normal appearance, PERRL Pupils: Present: PERRL - ENT ENT exam: Present: mucous membranes moist, normal exam - Neck Neck exam: Present: full ROM, normal inspection - Respiratory Respiratory exam: Present: rhonchi Additional comments: non labored at rest NO cough No sputum production - Cardiovascular Cardiovascular exam: Present: +S1, +S2 - GI/Abdominal GI/Abdominal exam: Present: normal bowel sounds, soft - Extremities Exam Extremities exam: Present: normal capillary refill, pedal edema - Expanded Lower Extremities Exam Lower Leg exam: Present: swelling 1 - venous ulcer with associated cellulitis of the LLE 2 - toenail avulsion of the left great toe 3 - large calcaneal ulceration, full thickness bone exposure- foul odor- minimal surrounding edema or erythema. Minimal warmth. No ascending cellulitis. Scant thick white/yellow drainage. [id number] full thickness to calc bone Results - Labs Result Diagrams: 01/29/18 13:51 01/29/18 13:51 Labs: Abnormal lab results RBC 3.80 M/mcL (3.82-4.97) L 01/29/18 13:51 Hgb 9.8 g/dL (11.5-15.4) L 01/29/18 13:51 Hct 32.1 % (35.3-44.9) L 01/29/18 13:51 MCH 25.8 pg (28.0-33.3) L 01/29/18 13:51 MCHC 30.5 g/dL (31.6-35.5) L 01/29/18 13:51 RDW 15.8 % (11.5-14.5) H 01/29/18 13:51 ESR 126 mm/hr (0-15) H 01/29/18 13:51 PT 13.4 Seconds (9.4-12.1) H 01/29/18 13:51 Sodium 131 mEq/L (136-145) L 01/29/18 13:51 BUN 21 mg/dL (6-20) H 01/29/18 13:51 Creatinine 1.42 mg/dL (0.60-1.20) H 01/29/18 13:51 Est GFR ( Amer) 47 (> 60) L 01/29/18 13:51 Est GFR (Non-Af Amer) 39 (> 60) L 01/29/18 13:51 Glucose 181 mg/dL (70-105) H 01/29/18 13:51 Hemoglobin A1c 10.3 % (-5.6) H 01/29/18 13:51 H & H 01/29/18 Range/Units 13:51 Hgb 9.8 L (11.5-15.4) g/dL Hct 32.1 L (35.3-44.9) % All other labs normal. Assessment and Plan (1) Cellulitis Current visit: No Status: Acute Start IV antibiotics as ordered, continue to monitor Qualifiers: Site of cellulitis: extremity Site of cellulitis of extremity: lower extremity Laterality: left Qualified Code(s): L03.116 - Cellulitis of left lower limb (2) Chronic osteomyelitis involving lower leg Current visit: No Status: Acute NPO after midnight Scheduled for OR tomorrow with for I&D of right calc, possible graft jacket placement and possible wound vac placement Continue IV antibiotics SW consulted for discharge planning Hospitalist services appreciated for medical management. Qualifiers: Laterality: right Qualified Code(s): M86.661 - Other chronic osteomyelitis , right tibia and fibula (3) Diabetes Current visit: No Status: Acute Strict glucose control to limit complications Qualifiers: Diabetes mellitus type: type 2 Diabetes mellitus mcfp insulin use: unspecified mcfp insulin use status Diabetes mellitus complication status : with circulatory complication Diabetes mellitus complication detail: with other circulatory complications Qualified Code(s): E11.59 - Type 2 diabetes mellitus with other circulatory complications
[2018-01-29] MEDS ORDERED: *HR* Dextrose 50 % in Water (Syg) 50 ML SYRINGE IVP PRN (17:07)
[2018-01-29] MEDS ORDERED: Dextrose Gel 15 GM/37.5 ML TUBE PO PRN ×2 (17:07)
[2018-01-29] MEDS ORDERED: D5% in Water 1,000 ML IVC PRN (17:07)
[2018-01-29] MEDS: Insulin LISPRO 300 UNITS/3 ML VIAL SQ SCH (17:30)
--- NOTE | 2018-01-29 17:40 | Internal Medicine Consult Note ---
Date of Encounter: 01/29/18 Time of Encounter: 17:00 - Assessment and plan (1) Cellulitis of right lower extremity Current Visit: No Status: Acute Assessment and plan: Plan for debridement tomorrow by podiatry Agree with IV Zosyn until cultures known (2) Chronic ulcer of right foot Current Visit: No Status: Chronic Assessment and plan: As above Qualifiers: Non-pressure ulcer stage: with fat layer exposed Qualified Code(s): L97.512 - Non-pressure chronic ulcer of other part of right foot with fat layer exposed (3) Peripheral neuropathy Current Visit: No Status: Acute Assessment and plan: Continue home dose of Neurontin Qualifiers: Peripheral neuropathy type: polyneuropathy, unspecified Qualified Code(s): G62.9 - Polyneuropathy, unspecified (4) CKD (chronic kidney disease) stage 3, GFR 30-59 ml/min Current Visit: No Status: Chronic Assessment and plan: Creatinine today at 1.42 which is close to baseline Continue to monitor (5) Tobacco abuse Current Visit: No Status: Acute Assessment and plan: Smoking sensation (6) Hyperlipidemia Current Visit: No Status: Chronic Assessment and plan: Continue statin Qualifiers: Hyperlipidemia type: mixed hyperlipidemia Qualified Code(s): E78.2 - Mixed hyperlipidemia (7) Hypertension Current Visit: No Status: Chronic Assessment and plan: Controlled; continue home dose of blood pressure medications Qualifiers: Hypertension type: essential hypertension Qualified Code(s): I10 - Essential (primary) hypertension (8) Type 2 diabetes mellitus Current Visit: No Status: Chronic Assessment and plan: Will continue home dose of basal insulin Qualifiers: Diabetes mellitus termite exterminator insulin use: with termite exterminator use Diabetes mellitus complication status: with circulatory complication Diabetes mellitus complication detail: with other circulatory complications Qualified Code(s): E11.59 - Type 2 diabetes mellitus with other circulatory complications; Z79.4 - FPC (current) use of insulin - Time Spent With Patient Total time spent is greater than 50% in coordination of care (as documented) at patient's floor/unit and/or counseling patient: Internal Medicine - CN: HPI - Data of Consult Consult date: 01/29/18 Requesting Physician: Matteo Walker, - Consult Narrative Reason for consult: Medical management History of present illness: Patient is a 52-year-old female with past medical history significant for diabetes with peripheral neuropathy, hyperlipidemia and mood disorder who was admitted to the hospital due to right foot ulcer by exchange trouble shooter Dr. Walker. Patient has a right lower extremity diabetic foot ulcer with chronic right calcaneus osteomyelitis and is managed by podiatry/. Patient is scheduled for a debridement of heel ulceration on 01/30/18. Past Med Surg Social Fam HX - Past Medical History Medical history: coronary artery disease, diabetes, GERD, hyperlipidemia, hypertension, peripheral artery disease, renal disease Psychiatric history: depression - Past Surgical History Surgical History: angioplasty/stent, orthopedic, other, other Additional surgical history: right foot surgery, tubes tied. - Social History Smoking Status: Current every day smoker Packs per day: 1 Smokeless Tobacco Status: No Alcohol use: none Drug use: none - Family History Mother Family Member Ethnicity: Non- Living Status: Still Living Hx Family Cardiac Disorders: Yes Hx Family Endocrine Disorder: Yes (type 2 diabetes) Father Family Member Ethnicity: Non- Living Status: Still Living Hx Family Endocrine Disorder: Yes (type 2 diabetes) All systems: reviewed and no additional remarkable complaints except as stated ( Left foot ulceration) Internal Medicine - CN: Meds Atorvastatin Calcium [Lipitor] 80 mg PO DAILY 08/21/16 [History] Clopidogrel [Plavix] 75 mg PO DAILY 08/21/16 [History] Ferrous Sulfate 325 mg PO BIDWM 08/21/16 [History] Gabapentin [Neurontin] 300 mg PO BID 08/21/16 [History] Lisinopril [Zestril] 10 mg PO DAILY 08/21/16 [History] Magnesium Oxide [Magnesium] 400 mg PO DAILY 08/21/16 [History] Nitroglycerin [Nitrostat] 0.4 mg SL Q5M PRN 08/21/16 [History] Ranitidine HCl [Acid Oral And Maxillofacial Surgeon] 150 mg PO BID 08/21/16 [History] Sertraline [Zoloft] 100 mg PO DAILY 08/21/16 [History] Metformin HCl [Glucophage] 1,000 mg PO BID 03/28/17 [History] Insulin ASPART [NovoLOG] 0 unit SQ TIDWM 06/19/17 [History] Sennosides [Senna] 8.6 mg PO DAILY 06/19/17 [History] Insulin Glargine,Hum.rec.anlog [Basaglar Kwikpen U-100] 60 unit SQ QAM 12/30/17 [History] Penicillin G Potassium [Pfizerpen] 12,000,000 unit IVPB DAILY #14 vial 01/03/18 [Rx] Acetaminophen [Tylenol] 650 mg PO Q6HR PRN #30 tablet 01/23/18 [Rx] 3 Allergy/AdvReac Type Severity Reaction Status Date / Time Hydromorphone [From Dilaudid] Allergy Palpitation Verified 01/23/18 22:11 s heparin AdvReac See Verified 01/23/18 22:11 Comments Internal Medicine - CN: Exam - Constitutional Vitals: Temp Pulse Resp BP Pulse Ox 98.8 F 83 16 119/74 98 01/29/18 15:03 01/29/18 15:03 01/29/18 15:03 01/29/18 15:03 01/29/18 15:03 General appearance IM: Present: A&O X 3, morbidly obese, no acute distress - Head Head exam: Present: atraumatic - Eye Eye exam: Present: normal appearance - ENT ENT exam: Present: mucous membranes moist - Respiratory Respiratory exam: Present: CTAB. Absent: accessory muscle use, rales, rhonchi, wheezes, tachypnea - Cardiovascular Cardiovascular exam IM: Present: RRR. Absent: clicks, diastolic murmur, gallop , rubs, systolic murmur - GI/Abdominal GI/Abdominal exam IM: Present: soft. Absent: guarding, tenderness - Neurological Exam Neurological exam: Present: oriented X3 - Psychiatric Psychiatric exam: Present: normal mood Internal Medicine - CN: Reslt - Labs CBC & Chem 7: 01/29/18 13:51 01/29/18 13:51 Labs: Short CBC 01/29/18 Range/Units 13:51 WBC 10.3 (4.3-11.1) K/mcL Hgb 9.8 L (11.5-15.4) g/dL Hct 32.1 L (35.3-44.9) % Plt Count 365 (140-400) K/mcL Neutrophils # 7.9 (1.6-8.9) K/mcL BMP 01/29/18 13:51 Sodium 131 L Potassium 4.3 Chloride 101 Carbon Dioxide 23 BUN 21 H Creatinine 1.42 H Glucose 181 H Calcium 8.8 - ABG Interpretation ABG results: PT/INR, D-dimer PT 13.4 Seconds (9.4-12.1) H 01/29/18 13:51 - Impressions Impressions Foot X-Ray 01/29/18 13:33 IMPRESSION: 1. Chronic deformity of the calcaneus. 2. Soft tissue ulceration. No soft tissue emphysema. D/ / 01/29/2018 17:32:04 Rj Carey MD / earnold Interpreting Provider: Rj Carey MD Consult Discharge Plan - Plan [facility]: [facility] [place], [place] [Primary Care Provider] -
[2018-01-29] MEDS ORDERED: Insulin LISPRO 300 UNITS/3 ML VIAL SQ SCH (21:00)
[2018-01-29] MEDS ORDERED: Nitroglycerin 0.4 MG TAB.SUBL SL PRN (22:03)
[2018-01-29] MEDS ORDERED: Acetaminophen 325 MG TABLET PO PRN (22:03)
--- NOTE | 2018-01-29 22:19 | Anesthesia Evaluation PreOp ---
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) Other Medical History: Renal, Diabetes Type II, GERD, Other (peripheral Neuropathy) Anesthesia History: Past Anesthesia (angioplasty/stent, orthopedic,right foot surgery, tubal) : No Alcohol Use: none Drug use: none Medications and Allergies Atorvastatin Calcium [Lipitor] 80 mg PO DAILY 08/21/16 [History] Clopidogrel [Plavix] 75 mg PO DAILY 08/21/16 [History] Ferrous Sulfate 325 mg PO BIDWM 08/21/16 [History] Gabapentin [Neurontin] 300 mg PO BID 08/21/16 [History] Lisinopril [Zestril] 10 mg PO DAILY 08/21/16 [History] Magnesium Oxide [Magnesium] 400 mg PO DAILY 08/21/16 [History] Nitroglycerin [Nitrostat] 0.4 mg SL Q5M PRN 08/21/16 [History] Ranitidine HCl [Acid Demurrage Man] 150 mg PO BID 08/21/16 [History] Sertraline [Zoloft] 100 mg PO DAILY 08/21/16 [History] Metformin HCl [Glucophage] 1,000 mg PO BID 03/28/17 [History] Insulin ASPART [NovoLOG] 0 unit SQ TIDWM 06/19/17 [History] Sennosides [Senna] 8.6 mg PO DAILY 06/19/17 [History] Insulin Glargine,Hum.rec.anlog [Basaglar Kwikpen U-100] 60 unit SQ QAM 12/30/17 [History] Penicillin G Potassium [Pfizerpen] 12,000,000 unit IVPB DAILY #14 vial 01/03/18 [Rx] Acetaminophen [Tylenol] 650 mg PO Q6HR PRN #30 tablet 01/23/18 [Rx] 3 Allergy/AdvReac Type Severity Reaction Status Date / Time Hydromorphone [From Dilaudid] Allergy Palpitation Verified 01/23/18 22:11 s heparin AdvReac See Verified 01/23/18 22:11 Comments - Meds/Allergy Pre-op Review Medications Reviewed: Yes Allergies Reviewed: Yes Beta Blockers on Current Med List: No Anesthesia Results - Labs 01/29/18 13:51 01/29/18 13:51 Echo with Imaging Enhancement Agent Name: Jessenia Mccallum Date of Study: 12/30/2017 EV/EV echocardiogram w enhance Impressions: LVEF 60%. Moderate left ventricular diastolic dysfunction. Definity echo contrast was used. Normal right ventricular structure and function. Mild aortic regurgitation. Mild mitral regurgitation. Mild tricuspid regurgitation. No pulmonary hypertension by TR gradient, 24 mmHg. 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 Other Medical History: Other (peripheral Neuropathy, BMI 47) Anesthesia History: No Prior Anesthetic Complications Anesthesia Results - Labs 01/30/18 04:00 01/30/18 04:00 - Imaging EKG: report reviewed Anesthesia Exam Vital Signs/O2 Sat/Glucose, Most Recent Temp Pulse Resp BP Pulse Ox 97.8 F 81 16 130/74 97 01/30/18 11:48 01/30/18 11:48 01/30/18 11:48 01/30/18 11:48 01/30/18 11:48 Blood Glucose* 120 Weight: 138 kg NPO (# of Hours): 8 - HEENT Pupil (Motor): Pupils equal Mallampati: II Teeth: Edentulous Oral Opening: Greater than 3 - 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
[2018-01-30] MEDS: Piperacillin/Tazobactam 3.375 GM in 0.9 % Sodium Chloride Mini Bag 100 ML IVPB SCH ×3 (00:05→16:52)
[2018-01-30 04:54] LABS: Basophils % 0.2 %; Eosinophils # 0.2 K/mcL (0.0-0.6); Hematocrit 29.7 % (35.3-44.9); Hemoglobin 9.1 g/dL (11.5-15.4); Immature Granulocytes % 0.7 % (0-4); Lymphocytes # 1.3 K/mcL (0.6-4.6); Lymphocytes % 14.7 %; Mean Corpuscular HGB Conc 30.6 g/dL (31.6-35.5); Mean Corpuscular Hemoglobin 26.1 pg (28.0-33.3); Mean Corpuscular Volume 85.1 fL (83.0-100.0); Mean Platelet Volume 9.3 fL (9.4-12.4); Monocytes # 0.9 K/mcL (0.0-1.3); Monocytes % 9.4 %; Neutrophils # 6.7 K/mcL (1.6-8.9); Platelet Count 317 K/mcL (140-400); Red Blood Count 3.49 M/mcL (3.82-4.97); Red Cell Distribution Width 15.9 % (11.5-14.5)
[2018-01-30 05:11] LABS: Albumin 2.6 g/dL (3.5-5.7); Albumin/Globulin Ratio 0.6 (1.1-2.2); Bilirubin,Total 0.4 mg/dL (0.3-1.0); Calcium 8.7 mg/dL (8.6-10.3); Chol/HDL Ratio 3.6 (0-4.9); Globulin 4.1 g/dL (2.4-3.5); Potassium 4.5 mEq/L (3.5-5.1); Total Protein 6.7 g/dL (6.4-8.9)
[2018-01-30] MEDS: Insulin LISPRO 300 UNITS/3 ML VIAL SQ SCH ×3 (07:21→15:42)
[2018-01-30] MEDS ORDERED: Famotidine 20 MG TABLET PO SCH (09:00)
[2018-01-30] MEDS ORDERED: Gabapentin 300 MG CAPSULE PO SCH (09:00)
[2018-01-30] MEDS ORDERED: Sennosides 8.6 MG TABLET PO SCH (09:00)
[2018-01-30] MEDS ORDERED: Insulin DETEMIR 100 UNIT/ML X5UNITS SQ SCH (09:00)
[2018-01-30] MEDS ORDERED: Magnesium Oxide 400 MG TABLET PO SCH (09:00)
--- NOTE | 2018-01-30 11:42 | Internal Med Progress Note ---
Date of Encounter: 01/30/18 Time of Encounter: 11:42 - Assessment and plan (1) Cellulitis of right lower extremity Current Visit: No Status: Acute Assessment and plan: Plan for debridement today by podiatry Continue with IV Zosyn until cultures are resulted (2) Type 2 diabetes mellitus Current Visit: No Status: Chronic Assessment and plan: Will continue home dose of basal insulin Qualifiers: Diabetes mellitus prison insulin use: with prison use Diabetes mellitus complication status: with circulatory complication Diabetes mellitus complication detail: with other circulatory complications Qualified Code(s): E11.59 - Type 2 diabetes mellitus with other circulatory complications; Z79.4 - drug coordinator (current) use of insulin (3) Peripheral neuropathy Current Visit: No Status: Acute Assessment and plan: Continue home dose of Neurontin Qualifiers: Peripheral neuropathy type: polyneuropathy, unspecified Qualified Code(s): G62.9 - Polyneuropathy, unspecified (4) Hyperlipidemia Current Visit: No Status: Chronic Assessment and plan: Continue statin Qualifiers: Hyperlipidemia type: mixed hyperlipidemia Qualified Code(s): E78.2 - Mixed hyperlipidemia (5) Chronic ulcer of right foot Current Visit: No Status: Chronic Assessment and plan: As above Qualifiers: Non-pressure ulcer stage: with fat layer exposed Qualified Code(s): L97.512 - Non-pressure chronic ulcer of other part of right foot with fat layer exposed (6) Tobacco abuse Current Visit: No Status: Acute Assessment and plan: Encouraged patient to stop smoking (7) CKD (chronic kidney disease) stage 3, GFR 30-59 ml/min Current Visit: No Status: Chronic (8) Hypertension Current Visit: No Status: Chronic Qualifiers: Hypertension type: essential hypertension Qualified Code(s): I10 - Essential (primary) hypertension - Time Spent With Patient Total time spent is greater than 50% in coordination of care (as documented) at patient's floor/unit and/or counseling patient: - Subjective Interval history: Patient seen and examined at bedside. Presently patient denies any pain or discomfort she is waiting to go surgery with podiatry for I&D of right calcaneus - Constitutional Vitals: Temp Pulse Resp BP Pulse Ox 98.1 F 78 16 118/64 96 01/30/18 07:15 01/30/18 07:15 01/30/18 07:15 01/30/18 07:15 01/30/18 07:15 General appearance: Present: A&O X 3, morbidly obese, no acute distress - Head Head exam: Present: atraumatic, normocephalic - Eye Eye exam: Present: PERRL, conjuntiva pink, sclera anicteric Pupils: Present: PERRL - Neck Neck exam general surgery: Present: supple, trachea midline. Absent: lymphadenopathy - Respiratory Respiratory exam: Present: CTAB. Absent: accessory muscle use, rales, rhonchi, wheezes - Cardiovascular Cardiovascular exam: Present: RRR, +S1, +S2. Absent: diastolic murmur, gallop, rubs, systolic murmur - GI/Abdominal GI/Abdominal exam: Present: normal bowel sounds, soft, no peritoneal signs. Absent: distended, tenderness - Extremities Exam Extremities exam: Present: warm, radial pulses palpable and symmetrical. Absent : calf tenderness, cyanotic, pedal edema - Neurological Exam Neurological exam: Present: CN II-XII intact, oriented X3, no focal deficits. Absent: pronater drift, facial droop, speech deficit - Skin Skin exam: Present: dry, intact Internal Medicine: Result - Labs CBC & Chem 7: 01/30/18 04:00 01/30/18 04:00 Labs: Short CBC 01/29/18 01/30/18 Range/Units 13:51 04:00 WBC 10.3 9.1 (4.3-11.1) K/mcL Hgb 9.8 L 9.1 L (11.5-15.4) g/dL Hct 32.1 L 29.7 L (35.3-44.9) % Plt Count 365 317 (140-400) K/mcL Neutrophils # 7.9 6.7 (1.6-8.9) K/mcL BMP 01/29/18 01/30/18 13:51 04:00 Sodium 131 L 135 L Potassium 4.3 4.5 Chloride 101 105 Carbon Dioxide 23 26 BUN 21 H 22 H Creatinine 1.42 H 1.53 H Glucose 181 H 117 H Calcium 8.8 8.7 Liver Function 01/30/18 Range/Units 04:00 Total Bilirubin 0.4 (0.3-1.0) mg/dL AST 10 L (13-39) Units/L ALT 11 (7-52) Units/L Alkaline Phosphatase 104 (34-104) Units/L Albumin 2.6 L (3.5-5.7) g/dL - ABG Interpretation ABG results: PT/INR, D-dimer PT 13.4 Seconds (9.4-12.1) H 01/29/18 13:51 - Impressions Impressions Foot X-Ray 01/29/18 13:33 IMPRESSION: 1. Chronic deformity of the calcaneus. 2. Soft tissue ulceration. No soft tissue emphysema. D/ / 01/29/2018 17:32:04 Rj Carey MD / earnold Interpreting Provider: Rj Carey MD Consult Discharge Plan - Plan [facility] [facility] [place]Primary Care Provider[place] -
[2018-01-30] MEDS ORDERED: Bupivacaine/Clonidine Syringe 1 EACH SYRINGE ONE (12:17)
[2018-01-30] MEDS ORDERED: Lidocaine -MPF 2% 2 ML VIAL ONE (13:42)
[2018-01-30] MEDS ORDERED: *HR* Propofol 200 MG/20 ML VIAL IVP ONE ×2 (13:42→13:44)
[2018-01-30] MEDS ORDERED: *HR* FentaNYL (PF) 100 MCG/2 ML VIAL ONE (13:44)
--- NOTE | 2018-01-30 14:23 | Orthopedic Operative Note ---
Date of procedure: 01/30/18 Pre-op diagnosis: #1 diabetic foot infection with osteomyelitis of calcaneus right Post-op diagnosis: same Procedure: 01/30/18 14:25 #1 incision and drainage and debridement multiple planes right foot #2 calcaneal ostectomy #3 application of graft jacket with wound VAC 01/31/18 17:16 Implants: #1 graft jacket 5 cm x 5 cm : Total 25 cm Complications: None Anesthesia: MAC, local Local Anesthetics: 0.25% Sensorcaine HCL SubQ (cc) Surgeon: Matteo Walker Was there an assistant professor of economics present: No Estimated blood loss (cc): 10 Tourniquet Time (Minutes): 0 Specimen: Bone cultures and bone fragments right calcaneus, swab cultures right heel Condition: stable Disposition: floor Procedure in Detail: 01/30/18 14:26 Details summary of procedure: Patient brought to surgical suite. A sign in procedure was performed. Patient was then transferred the surgical table and positioned properly safely securely. The right foot was elevated on a foam block. No tourniquet was used. Right ankle was then prepped with alcohol 3 times. Anesthetic timeout taken. Right ankle block was carried out by targeted block of posterior tibial and sural nerve without complications. Right foot prepped and draped in usual sterile manner with Hibiclens and water. Surgical timeout was taken. The wound measured approximately 8 cm in length 6 cm in width with exposure of the plantar aspect of the calcaneus visible and palpable clinically. That juncture the wound was then debrided and the nonviable tissue was incised around the periphery the wound with a #15 scalpel blade. All nonviable tissue was then surgically excised from the periphery to the center of the wound down to the calcaneus. At that point calcaneus was then debrided with a ultrasonics Misonix debrider was found be of abnormal texture and density. At that juncture using a Lambotte osteotome and mallet plantar lateral tubercle and posterior and inferior aspect calcaneus was found to be nonviable. That juncture the Lambotte osteotome was used to resect portions of nonviable bone from medial to lateral. Remaining bone was found to be of normal color texture density. It was rasped smooth using a hand rasp. The wound was then flushed with copious amounts sterile saline. Portions of the calcaneus for sent for culture. The wound was then thoroughly debrided medial dorsal lateral to dorsal posterior to dorsal. The wound then measured the same as it did prior to incision. All nonviable tissue was debrided thoroughly with ultrasonics Bonteraonix debrider. The wound was noted to bleed freely without necessitating use of Bovie ligature. Swab cultures were taken after the ostectomy of calcaneus was performed. The wound was then thoroughly irrigated with bulb syringe as well. Finding no bone chips or debris or any other irregularities and with remaining tissue being of normal color texture density as well. A 5 cm x 5 cm / 25 cm graft jacket was applied to the wound, per skin staple around the periphery.. It was fenestrated prior to application. The wound was sprayed with PRP and platelet poor plasma as well graft jacket was then of applied over the bone and anchored to the soft tissue surrounding the exposed bone with a skin stapler. Adaptic was then placed over the graft and a wound VAC was then placed over the Adaptic. Wound VAC was noted to function properly application. patient was then sent to holding room in good condition with vital signs stable. Estimated blood loss less than 10 ml. Specimen bone cultures and swab cultures. 01/31/18 17:11
[2018-01-30] MEDS ORDERED: Dextrose Gel 15 GM/37.5 ML TUBE PO PRN ×2 (14:32)
[2018-01-30] MEDS ORDERED: *HR* Dextrose 50 % in Water (Syg) 50 ML SYRINGE IVP PRN (14:32)
[2018-01-30] MEDS ORDERED: D5% in Water 1,000 ML IVC PRN (14:32)
[2018-01-30] MEDS ORDERED: Nitroglycerin 0.4 MG TAB.SUBL SL PRN (14:32)
--- NOTE | 2018-01-30 17:54 | Electrocardiograph Report ---
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
[2018-01-30] MEDS: Gabapentin 300 MG CAPSULE PO SCH (20:24)
[2018-01-30] MEDS: Famotidine 20 MG TABLET PO SCH (20:24)
[2018-01-30] MEDS ORDERED: Insulin LISPRO 300 UNITS/3 ML VIAL SQ SCH (21:00)
[2018-01-31] MEDS: Acetaminophen 325 MG TABLET PO PRN (00:01)
[2018-01-31] MEDS: Piperacillin/Tazobactam 3.375 GM in 0.9 % Sodium Chloride Mini Bag 100 ML IVPB SCH ×3 (00:50→15:44)
[2018-01-31 04:21] LABS: Basophils % 0.4 %; Eosinophils # 0.2 K/mcL (0.0-0.6); Hematocrit 26.2 % (35.3-44.9); Hemoglobin 8.1 g/dL (11.5-15.4); Immature Granulocytes % 0.6 % (0-4); Lymphocytes # 1.1 K/mcL (0.6-4.6); Lymphocytes % 13.6 %; Mean Corpuscular HGB Conc 30.9 g/dL (31.6-35.5); Mean Corpuscular Hemoglobin 26.3 pg (28.0-33.3); Mean Corpuscular Volume 85.1 fL (83.0-100.0); Mean Platelet Volume 9.7 fL (9.4-12.4); Monocytes # 0.7 K/mcL (0.0-1.3); Monocytes % 8.5 %; Platelet Count 336 K/mcL (140-400); Red Blood Count 3.08 M/mcL (3.82-4.97); Red Cell Distribution Width 15.9 % (11.5-14.5); Segmented Neutrophils % 74.9 %
[2018-01-31 04:41] LABS: Albumin 2.5 g/dL (3.5-5.7); Albumin/Globulin Ratio 0.6 (1.1-2.2); Bilirubin,Total 0.3 mg/dL (0.3-1.0); Calcium 8.3 mg/dL (8.6-10.3); Globulin 3.9 g/dL (2.4-3.5); Potassium 4.8 mEq/L (3.5-5.1); Total Protein 6.4 g/dL (6.4-8.9)
[2018-01-31] MEDS ORDERED: 0.9 % Sodium Chloride 1,000 ML IVC SCH (07:45)
[2018-01-31] MEDS: Magnesium Oxide 400 MG TABLET PO SCH (08:20)
[2018-01-31] MEDS: Gabapentin 300 MG CAPSULE PO SCH ×2 (08:20→20:49)
[2018-01-31] MEDS: Famotidine 20 MG TABLET PO SCH ×2 (08:21→20:49)
[2018-01-31] MEDS: Insulin LISPRO 300 UNITS/3 ML VIAL SQ SCH ×4 (08:21→20:50)
[2018-01-31] MEDS: Insulin DETEMIR 100 UNIT/ML X5UNITS SQ SCH (08:21)
[2018-01-31] MEDS: Sennosides 8.6 MG TABLET PO SCH (08:21)
--- NOTE | 2018-01-31 11:51 | Internal Med Progress Note ---
Date of Encounter: 01/31/18 Time of Encounter: 11:50 - Assessment and plan (1) Chronic ulcer of right foot Current Visit: No Status: Chronic Assessment and plan: Underwent surgical debridement per Dr. Walker Continue with wound VAC and dressing changes per Dr. 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 Diabetes mellitus complication status: with circulatory complication Diabetes mellitus complication detail: with other circulatory complications Qualified Code(s): E11.59 - Type 2 diabetes mellitus with other circulatory complications; Z79.4 - intermediate (current) use of insulin (4) Peripheral neuropathy Current Visit: No Status: Acute Assessment and plan: Continue home dose of Neurontin Qualifiers: Peripheral neuropathy type: polyneuropathy, unspecified Qualified Code(s): G62.9 - Polyneuropathy, unspecified (5) Hyperlipidemia Current Visit: No Status: Chronic Assessment and plan: Continue statin Qualifiers: Hyperlipidemia type: mixed hyperlipidemia Qualified Code(s): E78.2 - Mixed hyperlipidemia (6) Tobacco abuse Current Visit: No Status: Acute Assessment and plan: Encouraged patient to stop smoking (7) CKD (chronic kidney disease) stage 3, GFR 30-59 ml/min Current Visit: No Status: Chronic Assessment and plan: Creatinine 1.53 we will give gentle IV fluids and continue to monitor Monitor intake and output daily weights (8) Hypertension Current Visit: No Status: Chronic Assessment and plan: Controlled; continue home dose of blood pressure medications Qualifiers: Hypertension type: essential hypertension Qualified Code(s): I10 - Essential (primary) hypertension (9) Anemia Current Visit: Yes Status: Acute Assessment and plan: 1 we will continue with oral iron-will check iron studies we will monitor H&H every 6 appears to be improving we will continue to monitor 8.6 at this time. Qualifiers: Anemia type: unspecified type Qualified Code(s): D64.9 - Anemia, unspecified (10) Hyponatremia Current Visit: No Status: Chronic Assessment and plan: 1 this appears to be chronic we will give gentle IV fluids due to elevated creatinine and continue to monitor sodium. No neurological changes this time noted - Time Spent With Patient Total time spent is greater than 50% in coordination of care (as documented) at patient's floor/unit and/or counseling patient: - Subjective Interval history: Patient seen and examined at bedside. Denies any pain or discomfort -wound VAC in place - Constitutional Vitals: Temp Pulse Resp BP Pulse Ox 98.2 F 75 20 150/83 98 01/31/18 10:47 01/31/18 10:47 01/31/18 10:47 01/31/18 10:47 01/31/18 10:47 General appearance: Present: A&O X 3, morbidly obese, no acute distress - Head Head exam: Present: atraumatic, normocephalic - Eye Eye exam: Present: PERRL, conjuntiva pink, sclera anicteric Pupils: Present: PERRL - Neck Neck exam general surgery: Present: supple, trachea midline. Absent: lymphadenopathy - Respiratory Respiratory exam: Present: CTAB. Absent: accessory muscle use, rales, rhonchi, wheezes - Cardiovascular Cardiovascular exam: Present: RRR, +S1, +S2. Absent: diastolic murmur, gallop, rubs, systolic murmur - GI/Abdominal GI/Abdominal exam: Present: normal bowel sounds, soft, no peritoneal signs. Absent: distended, tenderness - Extremities Exam Extremities exam: Present: warm, radial pulses palpable and symmetrical. Absent : calf tenderness, cyanotic, pedal edema - Neurological Exam Neurological exam: Present: CN II-XII intact, oriented X3, no focal deficits. Absent: pronater drift, facial droop, speech deficit - Skin Skin exam: Present: dry, intact Internal Medicine: Result - Labs CBC & Chem 7: 01/31/18 14:10 01/31/18 14:10 Labs: Short CBC 01/31/18 Range/Units 03:45 WBC 8.0 (4.3-11.1) K/mcL Hgb 8.1 L (11.5-15.4) g/dL Hct 26.2 L (35.3-44.9) % Plt Count 336 (140-400) K/mcL Neutrophils # 6.0 (1.6-8.9) K/mcL BMP 01/31/18 03:45 Sodium 132 L Potassium 4.8 Chloride 103 Carbon Dioxide 21 L BUN 22 H Creatinine 1.51 H Glucose 305 H Calcium 8.3 L Liver Function 01/31/18 Range/Units 03:45 Total Bilirubin 0.3 (0.3-1.0) mg/dL AST 11 L (13-39) Units/L ALT 11 (7-52) Units/L Alkaline Phosphatase 114 H (34-104) Units/L Albumin 2.5 L (3.5-5.7) g/dL - ABG Interpretation ABG results: PT/INR, D-dimer PT 13.4 Seconds (9.4-12.1) H 01/29/18 13:51 - Impressions Impressions Foot X-Ray 01/29/18 13:33 IMPRESSION: 1. Chronic deformity of the calcaneus. 2. Soft tissue ulceration. No soft tissue emphysema. D/ / 01/29/2018 17:32:04 Rj Carey MD / earnold Interpreting Provider: Rj Carey MD Consult Discharge Plan - Plan Referrals: Matteo Love MD [Primary Care Provider] -
[2018-01-31 14:26] LABS: Hemoglobin 8.6 g/dL (11.5-15.4)
[2018-01-31 14:48] LABS: Calcium 8.4 mg/dL (8.6-10.3); Potassium 4.9 mEq/L (3.5-5.1)
--- NOTE | 2018-01-31 16:16 | Podiatry Progress Note ---
Date of Encounter: 01/31/18 Time of Encounter: 12:00 - Assessment and Plan (1) Cellulitis Current Visit: No Status: Acute Start IV antibiotics as ordered await cultures Qualifiers: Site of cellulitis: extremity Site of cellulitis of extremity: lower extremity Laterality: left Qualified Code(s): L03.116 - Cellulitis of left lower limb (2) Chronic osteomyelitis involving lower leg Current Visit: No Status: Acute s/p 01/30/18 14:25 #1 incision and drainage and debridement multiple planes right foot #2 application of graft jacket with wound VAC Implants: #1 graft jacket 5 cm x 5 cm : Total 25 cm PLAN Continue IV antibiotics Await intra op cultures Continue medical management Weight bearing to forefoot only Patient will need wound vac outpatient, refusing ECF at this time. 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 Patient resting comfortably in bed upon arrival. Wound vac intact and running. 10ml serosang drainage Patient denies any pain. Patient denies any fevers, chills, n/v or flu like symptoms. Objective - Vital Signs Vital Signs: Vital Signs Temp Pulse Resp BP Pulse Ox 01/31/18 14:00 98.1 F 73 20 153/92 98 01/31/18 10:47 98.2 F 75 20 150/83 98 01/31/18 07:26 98.0 F 76 18 145/71 94 01/31/18 02:40 97.8 F 76 16 118/70 98 01/30/18 22:53 98.2 F 81 14 159/73 97 01/30/18 20:45 75 142/78 97 01/30/18 18:43 98.0 F 74 16 144/81 96 18 18:00 72 145/81 94 01/30/18 17:00 74 123/69 96 Intake and Output 01/31/18 01/31/18 01/31/18 07:59 15:59 23:59 Intake Total 100 / 100 720 / 720 Output Total 400 / 400 Balance 100 / 100 320 / 320 Intake: IV Fluids 100 / 100 100 / 100 Zosyn 3.375 GM In 0.9 % Sodium 100 / 100 100 / 100 Chloride (Mini-Bag +) 100 ML @ 25 mls/hr IVPB Q8HR ANTE Rx#: [id number] Oral 620 / 620 Output: Urine 400 / 400 Other: Meal Breakfast Percent of Meal Consumed 100% Blood Glucose* 343 - Exam Exam: Awake alert and oriented Toes warm to touch Cap refill <3 seconds Movement intact to toes Patient is neuropathic, minimal sensation Wound vac intact, running without issue NO calf pain with manual compression 100ml SeroSang drainage noted Dressing intact to LLE, patient states nurse changed 30min prior - Lab Result Diagrams: 01/31/18 14:10 01/31/18 14:10 Labs: Abnormal lab results RBC 3.08 M/mcL (3.82-4.97) L 01/31/18 03:45 Hgb 8.6 g/dL (11.5-15.4) L 01/31/18 14:10 Hct 28.0 % (35.3-44.9) L 01/31/18 14:10 MCH 26.3 pg (28.0-33.3) L 01/31/18 03:45 MCHC 30.9 g/dL (31.6-35.5) L 01/31/18 03:45 RDW 15.9 % (11.5-14.5) H 01/31/18 03:45 ESR 126 mm/hr (0-15) H 01/29/18 13:51 PT 13.4 Seconds (9.4-12.1) H 01/29/18 13:51 BUN 21 mg/dL (6-20) H 01/31/18 14:10 Creatinine 1.51 mg/dL (0.60-1.20) H 01/31/18 14:10 Est GFR ( Amer) 44 (> 60) L 01/31/18 14:10 Est GFR (Non-Af Amer) 36 (> 60) L 01/31/18 14:10 Glucose 248 mg/dL (70-105) H 01/31/18 14:10 POC Glucose 252 mg/dL (70-99) H 01/31/18 11:46 Hemoglobin A1c 10.3 % (-5.6) H 01/29/18 13:51 Calcium 8.4 mg/dL (8.6-10.3) L 01/31/18 14:10 AST 11 Units/L (13-39) L 01/31/18 03:45 Alkaline Phosphatase 114 Units/L (34-104) H 01/31/18 03:45 Albumin 2.5 g/dL (3.5-5.7) L 01/31/18 03:45 Globulin 3.9 g/dL (2.4-3.5) H 01/31/18 03:45 Albumin/Globulin Ratio 0.6 (1.1-2.2) L 01/31/18 03:45 HDL Cholesterol 31 mg/dL (40-59) L 01/30/18 04:00 Microbiology, Last 48 Hours 01/29/18 14:52 Blood Culture - Preliminary Peripheral Venipuncture Culture is incubating and being continuously monitored for growth. Final report to follow. 01/29/18 14:53 Blood Culture - Preliminary Peripheral Venipuncture Culture is incubating and being continuously monitored for growth. Final report to follow. Consult Discharge Plan - Plan Ref[place]: [facility] [place]teo Velez [place] [Primary Care Provider] -
[2018-01-31 20:25] LABS: Hematocrit 35.7 % (35.3-44.9)
[2018-02-01] MEDS: Piperacillin/Tazobactam 3.375 GM in 0.9 % Sodium Chloride Mini Bag 100 ML IVPB SCH ×3 (00:46→17:53)
[2018-02-01 04:47] LABS: Basophils % 0.5 %; Eosinophils # 0.2 K/mcL (0.0-0.6); Eosinophils % 2.4 %; Hematocrit 28.9 % (35.3-44.9); Hemoglobin 8.8 g/dL (11.5-15.4); Immature Granulocytes % 0.6 % (0-4); Lymphocytes # 1.1 K/mcL (0.6-4.6); Lymphocytes % 14.1 %; Mean Corpuscular HGB Conc 30.4 g/dL (31.6-35.5); Mean Corpuscular Hemoglobin 25.9 pg (28.0-33.3); Mean Platelet Volume 9.8 fL (9.4-12.4); Monocytes # 0.6 K/mcL (0.0-1.3); Monocytes % 7.6 %; Neutrophils # 5.9 K/mcL (1.6-8.9); Platelet Count 357 K/mcL (140-400); Red Cell Distribution Width 15.9 % (11.5-14.5); Retculocyte # 0.04 M/mcL (0.05-0.10); Reticulocyte % 1.3 % (1.6-2.8); Segmented Neutrophils % 74.8 %
[2018-02-01 05:03] LABS: Albumin 2.6 g/dL (3.5-5.7); Albumin/Globulin Ratio 0.6 (1.1-2.2); Bilirubin,Total 0.3 mg/dL (0.3-1.0); Calcium 8.5 mg/dL (8.6-10.3); Globulin 4.1 g/dL (2.4-3.5); Potassium 4.4 mEq/L (3.5-5.1); Total Protein 6.7 g/dL (6.4-8.9)
[2018-02-01 05:08] LABS: % Iron Saturation 20 % (15-50); Iron 51 mcg/dL (50-170); Transferrin 178 mg/dL (203-362)
[2018-02-01 05:22] LABS: Ferritin 186 ng/mL (10-120)
[2018-02-01 05:29] LABS: Folate 9.3 ng/mL (3.0-16.0)
[2018-02-01] MEDS: Insulin LISPRO 300 UNITS/3 ML VIAL SQ SCH ×4 (08:35→21:34)
[2018-02-01] MEDS: Insulin DETEMIR 100 UNIT/ML X5UNITS SQ SCH (08:35)
[2018-02-01] MEDS: Magnesium Oxide 400 MG TABLET PO SCH (08:36)
[2018-02-01] MEDS: Sennosides 8.6 MG TABLET PO SCH (08:36)
[2018-02-01] MEDS: Famotidine 20 MG TABLET PO SCH ×2 (08:36→19:47)
[2018-02-01] MEDS: Gabapentin 300 MG CAPSULE PO SCH ×2 (08:37→19:47)
--- NOTE | 2018-02-01 10:14 | Internal Med Progress Note ---
Date of Encounter: 02/01/18 Time of Encounter: 10:14 - Assessment and plan (1) Chronic ulcer of right foot Current Visit: No Status: Chronic Assessment and plan: Underwent surgical debridement per Dr. Walker Continue with wound VAC and dressing changes per Dr. Walker Continue with Zosyn-awaiting bone culture results Qualifiers: Non-pressure ulcer stage: with necrosis of bone Qualified Code(s): L97.514 - Non-pressure chronic ulcer of other part of right foot with necrosis of bone (2) Cellulitis of right lower extremity Current Visit: No Status: Acute Assessment and plan: Underwent surgical debridement-wound VAC in place Continue with IV Zosyn until cultures are resulted (3) Type 2 diabetes mellitus Current Visit: No Status: Chronic Assessment and plan: Will continue home dose of basal insulin-blood sugar stable, continue to monitor Qualifiers: Diabetes mellitus continuous churn buttermaker insulin use: with senior care use Diabetes mellitus complication status: with circulatory complication Diabetes mellitus complication detail: with other circulatory complications Qualified Code(s): E11.59 - Type 2 diabetes mellitus with other circulatory complications; Z79.4 - long-term (current) use of insulin (4) Peripheral neuropathy Current Visit: No Status: Acute Assessment and plan: Continue home dose of Neurontin Qualifiers: Peripheral neuropathy type: polyneuropathy, unspecified Qualified Code(s): G62.9 - Polyneuropathy, unspecified (5) Hyperlipidemia Current Visit: No Status: Chronic Assessment and plan: Continue statin Qualifiers: Hyperlipidemia type: mixed hyperlipidemia Qualified Code(s): E78.2 - Mixed hyperlipidemia (6) Tobacco abuse Current Visit: No Status: Acute Assessment and plan: Encouraged patient to stop smoking (7) CKD (chronic kidney disease) stage 3, GFR 30-59 ml/min Current Visit: No Status: Chronic Assessment and plan: Creatinine [place] improved back to baseline continue to monitor Monitor intake and output daily weights (8) Hypertension Current Visit: No Status: Chronic Qualifiers: Hypertension type: essential hypertension Qualified Code(s): I10 - Essential (primary) hypertension (9) Anemia Current Visit: Yes Status: Acute Assessment and plan: 1 we will continue with oral iron-. Hemoglobin improved back to baseline we will continue to monitor Qualifiers: Anemia type: unspecified type Qualified Code(s): D64.9 - Anemia, unspecified (10) Hyponatremia Current Visit: No Status: Chronic Assessment and plan: 1 this appears to be chronic appears to be back to baseline we will continue to monitor - Time Spent With Patient Total time spent is greater than 50% in coordination of care (as documented) at patient's floor/unit and/or counseling patient: - Subjective Interval history: Patient seen and examined at bedside. Denies any pain or discomfort -wound VAC in place - Constitutional Vitals: Temp Pulse Resp BP Pulse Ox 97.9 F 17 98 193/95 95 02/01/18 07:32 02/01/18 07:32 02/01/18 07:32 02/01/18 07:32 02/01/18 03:32 General appearance: Present: A&O X 3, morbidly obese, no acute distress - Head Head exam: Present: atraumatic, normocephalic - Eye Eye exam: Present: PERRL, conjuntiva pink, sclera anicteric Pupils: Present: PERRL - Neck Neck exam general surgery: Present: supple, trachea midline. Absent: lymphadenopathy - Respiratory Respiratory exam: Present: CTAB. Absent: accessory muscle use, rales, rhonchi, wheezes - Cardiovascular Cardiovascular exam: Present: RRR, +S1, +S2. Absent: diastolic murmur, gallop, rubs, systolic murmur - GI/Abdominal GI/Abdominal exam: Present: normal bowel sounds, soft, no peritoneal signs. Absent: distended, tenderness - Extremities Exam Extremities exam: Present: warm, radial pulses palpable and symmetrical. Absent : calf tenderness, cyanotic, pedal edema Additional comments: Right foot with wound VAC in place as well as dressing. Extremities pink and warm with good cap refill - Neurological Exam Neurological exam: Present: CN II-XII intact, oriented X3, no focal deficits. Absent: pronater drift, facial droop, speech deficit - Skin Skin exam: Present: dry, intact Internal Medicine: Result - Labs CBC & Chem 7: 02/01/18 12:17 02/01/18 03:50 Labs: Short CBC 01/31/18 01/31/18 02/01/18 Range/Units 14:10 20:13 03:50 WBC 7.9 (4.3-11.1) K/mcL Hgb 8.6 L 10.0 L 8.8 L (11.5-15.4) g/dL Hct 28.0 L 35.7 28.9 L (35.3-44.9) % Plt Count 357 (140-400) K/mcL Neutrophils # 5.9 (1.6-8.9) K/mcL BMP 01/31/18 02/01/18 14:10 03:50 Sodium 136 134 L Potassium 4.9 4.4 Chloride 107 106 Carbon Dioxide 24 19 L BUN 21 H 20 Creatinine 1.51 H 1.34 H Glucose 248 H 271 H Calcium 8.4 L 8.5 L Liver Function 02/01/18 Range/Units 03:50 Total Bilirubin 0.3 (0.3-1.0) mg/dL AST 11 L (13-39) Units/L ALT 11 (7-52) Units/L Alkaline Phosphatase 124 H (34-104) Units/L Albumin 2.6 L (3.5-5.7) g/dL - ABG Interpretation ABG results: PT/INR, D-dimer PT 13.4 Seconds (9.4-12.1) H 01/29/18 13:51 Consult Discharge Plan - Plan Referrals: Kate,Matteo Velez MD [Primary Care Provider] -
--- NOTE | 2018-02-01 10:49 | Podiatry Progress Note ---
Date of Encounter: 02/01/18 Time of Encounter: 10:45 - Assessment and Plan (1) Chronic ulcer of right foot Current Visit: No Status: Chronic Assessment #1: Patient's postop day #2 stable wound VAC functioning. Awaiting bone cultures. Swab cultures revealed gram-negative simon sparse. #2 stable vital signs. No fever patient continues to improve #3 change wound VAC today Plan: #1 discussion with patient concerning post discharge care. Informed patient she must go to ECF for her best option to prevent limb loss/ amputation. Patient agrees to ECF placement. Notify social worker psychiatric for placement as soon as possible #2 change wound VAC today #3 Continue broad-spectrum antibiotics await bone cultures Qualifiers: Non-pressure ulcer stage: with necrosis of bone Qualified Code(s): L97.514 - Non-pressure chronic ulcer of other part of right foot with necrosis of bone Subjective Principal diagnosis: Foot ulcer with osteomyelitis right calcaneus Interval history: Patient postop day #2 with no chest pain nausea vomiting fever chills. No leukocytosis. Patient resting comfortably in bed no complaints of pain. Wound VAC intact. 75-100 mL of serosanguineous drainage. Objective - Vital Signs Vital Signs: Vital Signs Temp Pulse Resp BP Pulse Ox 02/01/18 07:32 97.9 F 17 98 193/95 02/01/18 03:32 97.9 F 73 16 189/93 95 01/31/18 22:17 98.0 F 72 14 191/81 98 01/31/18 18:41 98.0 F 72 14 178/65 98 01/31/18 14:00 98.1 F 73 20 153/92 98 01/31/18 10:47 98.2 F 75 20 150/83 98 Intake and Output 01/31/18 02/01/18 02/01/18 23:59 07:59 15:59 Intake Total 340 / 340 100 / 100 Output Total 600 / 600 1185 / 1185 350 / 350 Balance -260 / -260 -1085 / -1085 -350 / -350 Intake: IV Fluids 100 / 100 100 / 100 Zosyn 3.375 GM In 0.9 % Sodium 100 / 100 100 / 100 Chloride (Mini-Bag +) 100 ML @ 25 mls/hr IVPB Q8HR [facility] Rx#: [id number] Oral 240 / 240 0 / 0 Output: Urine 600 / 600 1185 / 1185 350 / 350 Other: Meal Dinner Percent of Meal Consumed 100% Weight 136.5 kg Blood Glucose* 252 268 Patient Weight 02/01/18 23:59 Weight 136.5 kg - Exam Exam: Wound VAC intact. Slight maceration noted underneath the dressing. Graft intact. - Lab Result Diagrams: 02/01/18 03:50 02/01/18 03:50 Labs: Abnormal lab results RBC 3.40 M/mcL (3.82-4.97) L 02/01/18 03:50 Hgb 8.8 g/dL (11.5-15.4) L 02/01/18 03:50 Hct 28.9 % (35.3-44.9) L 02/01/18 03:50 MCH 25.9 pg (28.0-33.3) L 02/01/18 03:50 MCHC 30.4 g/dL (31.6-35.5) L 02/01/18 03:50 RDW 15.9 % (11.5-14.5) H 02/01/18 03:50 Reticulocyte # 0.04 M/mcL (0.05-0.10) L 02/01/18 03:50 ESR 126 mm/hr (0-15) H 01/29/18 13:51 Percent Retic 1.3 % (1.6-2.8) L 02/01/18 03:50 Retic Hgb Equivalent 26.5 pg (28.61-36.33) L 02/01/18 03:50 PT 13.4 Seconds (9.4-12.1) H 01/29/18 13:51 Sodium 134 mEq/L (136-145) L 02/01/18 03:50 Carbon Dioxide 19 mEq/L (23-29) L 02/01/18 03:50 Creatinine 1.34 mg/dL (0.60-1.20) H 02/01/18 03:50 Est GFR ( Amer) 50 (> 60) L 02/01/18 03:50 Est GFR (Non-Af Amer) 41 (> 60) L 02/01/18 03:50 Glucose 271 mg/dL (70-105) H 02/01/18 03:50 POC Glucose 252 mg/dL (70-99) H 01/31/18 20:08 Hemoglobin A1c 10.3 % (-5.6) H 01/29/18 13:51 Calcium 8.5 mg/dL (8.6-10.3) L 02/01/18 03:50 Transferrin 178 mg/dL (203-362) L 02/01/18 03:50 Ferritin 186 ng/mL (10-120) H 02/01/18 03:50 AST 11 Units/L (13-39) L 02/01/18 03:50 Alkaline Phosphatase 124 Units/L (34-104) H 02/01/18 03:50 Albumin 2.6 g/dL (3.5-5.7) L 02/01/18 03:50 Globulin 4.1 g/dL (2.4-3.5) H 02/01/18 03:50 Albumin/Globulin Ratio 0.6 (1.1-2.2) L 02/01/18 03:50 HDL Cholesterol 31 mg/dL (40-59) L 01/30/18 04:00 Microbiology, Last 48 Hours 01/30/18 14:00 Wound Culture - Preliminary Right Foot Gram Negative Simon Consult Discharge Plan - Plan Referrals: Matteo Love MD [Primary Care Provider] -
[2018-02-01 12:29] LABS: Hematocrit 30.2 % (35.3-44.9); Hemoglobin 9.4 g/dL (11.5-15.4)
[2018-02-02] MEDS: Piperacillin/Tazobactam 3.375 GM in 0.9 % Sodium Chloride Mini Bag 100 ML IVPB SCH ×4 (00:03→23:27)
[2018-02-02] MEDS: Acetaminophen 325 MG TABLET PO PRN ×2 (01:21→17:21)
[2018-02-02] MEDS: Insulin LISPRO 300 UNITS/3 ML VIAL SQ SCH ×4 (08:21→20:58)
[2018-02-02] MEDS: Insulin DETEMIR 100 UNIT/ML X5UNITS SQ SCH (08:31)
[2018-02-02] MEDS: Sennosides 8.6 MG TABLET PO SCH (08:33)
[2018-02-02] MEDS: Gabapentin 300 MG CAPSULE PO SCH ×2 (08:33→20:57)
[2018-02-02] MEDS: Magnesium Oxide 400 MG TABLET PO SCH (08:33)
[2018-02-02] MEDS: Famotidine 20 MG TABLET PO SCH ×2 (08:33→20:57)
--- NOTE | 2018-02-02 08:54 | Internal Med Progress Note ---
Date of Encounter: 02/02/18 Time of Encounter: 08:54 - Assessment and plan (1) Chronic ulcer of right foot Current Visit: No Status: Chronic Assessment and plan: Underwent surgical debridement per Dr. Walker Continue with wound VAC and dressing changes per Dr. Walker Preliminary culture results show gram-negative rods pseudomonas and enterococcus species Continue with Zosyn day 4-we will add vancomycin We will consult infectious disease Qualifiers: Non-pressure ulcer stage: with necrosis of bone Qualified Code(s): L97.514 - Non-pressure chronic ulcer of other part of right foot with necrosis of bone (2) Cellulitis of right lower extremity Current Visit: No Status: Acute Assessment and plan: Underwent surgical debridement-wound VAC in place Continue with IV Zosyn add vancomycin (3) Type 2 diabetes mellitus Current Visit: No Status: Chronic Assessment and plan: Will continue home dose of basal insulin-blood sugar stable, continue to monitor Qualifiers: Diabetes mellitus mcfp insulin use: with mcfp use Diabetes mellitus complication status: with circulatory complication Diabetes mellitus complication detail: with other circulatory complications Qualified Code(s): E11.59 - Type 2 diabetes mellitus with other circulatory complications; Z79.4 - rn long term care (current) use of insulin (4) Peripheral neuropathy Current Visit: No Status: Acute Assessment and plan: Continue home dose of Neurontin Qualifiers: Peripheral neuropathy type: polyneuropathy, unspecified Qualified Code(s): G62.9 - Polyneuropathy, unspecified (5) Hyperlipidemia Current Visit: No Status: Chronic Assessment and plan: Continue statin Qualifiers: Hyperlipidemia type: mixed hyperlipidemia Qualified Code(s): E78.2 - Mixed hyperlipidemia (6) Tobacco abuse Current Visit: No Status: Acute Assessment and plan: Encouraged patient to stop smoking (7) CKD (chronic kidney disease) stage 3, GFR 30-59 ml/min Current Visit: No Status: Chronic Assessment and plan: Creatinine improved back to baseline continue to monitor Monitor intake and output daily weights Avoid nephrotoxins (8) Hypertension Current Visit: No Status: Chronic Assessment and plan: Controlled; continue home dose of blood pressure medications Qualifiers: Hypertension type: essential hypertension Qualified Code(s): I10 - Essential (primary) hypertension (9) Anemia Current Visit: Yes Status: Acute Assessment and plan: 1 we will continue with oral iron-. Hemoglobin improved back to baseline we will continue to monitor Qualifiers: Anemia type: unspecified type Qualified Code(s): D64.9 - Anemia, unspecified (10) Hyponatremia Current Visit: No Status: Chronic Assessment and plan: 1 this appears to be chronic appears to be back to baseline we will continue to monitor (11) DVT prophylaxis Current Visit: No Status: Acute Assessment and plan: SCD dt anemia- allergy to heparin - Time Spent With Patient Total time spent is greater than 50% in coordination of care (as documented) at patient's floor/unit and/or counseling patient: - Subjective Interval history: Patient seen and examined at bedside. Denies any pain or discomfort -wound VAC in place - Constitutional Vitals: Temp Pulse Resp BP Pulse Ox 97.9 F 67 18 155/82 97 02/02/18 07:41 02/02/18 07:41 02/02/18 07:41 02/02/18 07:41 02/02/18 07:46 General appearance: Present: A&O X 3, morbidly obese, no acute distress - Head Head exam: Present: atraumatic, normocephalic - Eye Eye exam: Present: PERRL, conjuntiva pink, sclera anicteric Pupils: Present: PERRL - Neck Neck exam general surgery: Present: supple, trachea midline. Absent: lymphadenopathy - Respiratory Respiratory exam: Present: CTAB. Absent: accessory muscle use, rales, rhonchi, wheezes - Cardiovascular Cardiovascular exam: Present: RRR, +S1, +S2. Absent: diastolic murmur, gallop, rubs, systolic murmur - GI/Abdominal GI/Abdominal exam: Present: normal bowel sounds, soft, no peritoneal signs. Absent: distended, tenderness - Extremities Exam Extremities exam: Present: warm, radial pulses palpable and symmetrical. Absent : calf tenderness, cyanotic, pedal edema - Neurological Exam Neurological exam: Present: CN II-XII intact, oriented X3, no focal deficits. Absent: pronater drift, facial droop, speech deficit - Skin Skin exam: Present: dry, intact Internal Medicine: Result - Labs CBC & Chem 7: 02/02/18 08:59 02/02/18 08:59 Labs: Short CBC 02/01/18 Range/Units 12:17 Hgb 9.4 L (11.5-15.4) g/dL Hct 30.2 L (35.3-44.9) % - ABG Interpretation ABG results: PT/INR, D-dimer PT 13.4 Seconds (9.4-12.1) H 01/29/18 13:51 Consult Discharge Plan - Plan Referrals: Matteo Love MD [Primary Care Provider] -
[2018-02-02 09:19] LABS: Basophils % 0.4 %; Eosinophils # 0.2 K/mcL (0.0-0.6); Eosinophils % 3.3 %; Hematocrit 31.4 % (35.3-44.9); Hemoglobin 9.9 g/dL (11.5-15.4); Immature Granulocytes % 0.6 % (0-4); Lymphocytes % 14.8 %; Mean Corpuscular HGB Conc 31.5 g/dL (31.6-35.5); Mean Corpuscular Hemoglobin 26.6 pg (28.0-33.3); Mean Corpuscular Volume 84.4 fL (83.0-100.0); Mean Platelet Volume 9.6 fL (9.4-12.4); Monocytes # 0.6 K/mcL (0.0-1.3); Monocytes % 8.3 %; Neutrophils # 5.1 K/mcL (1.6-8.9); Platelet Count 359 K/mcL (140-400); Red Blood Count 3.72 M/mcL (3.82-4.97); Red Cell Distribution Width 15.8 % (11.5-14.5); Segmented Neutrophils % 72.6 %
[2018-02-02 09:40] LABS: Calcium 8.9 mg/dL (8.6-10.3); Potassium 4.3 mEq/L (3.5-5.1)
[2018-02-03 04:44] LABS: Basophils % 0.5 %; Eosinophils # 0.3 K/mcL (0.0-0.6); Eosinophils % 3.7 %; Hematocrit 30.2 % (35.3-44.9); Hemoglobin 9.4 g/dL (11.5-15.4); Immature Granulocytes % 0.8 % (0-4); Lymphocytes # 1.1 K/mcL (0.6-4.6); Lymphocytes % 14.4 %; Mean Corpuscular HGB Conc 31.1 g/dL (31.6-35.5); Mean Corpuscular Hemoglobin 26.3 pg (28.0-33.3); Mean Corpuscular Volume 84.6 fL (83.0-100.0); Mean Platelet Volume 9.5 fL (9.4-12.4); Monocytes # 0.7 K/mcL (0.0-1.3); Monocytes % 9.2 %; Neutrophils # 5.6 K/mcL (1.6-8.9); Platelet Count 332 K/mcL (140-400); Red Blood Count 3.57 M/mcL (3.82-4.97); Red Cell Distribution Width 15.9 % (11.5-14.5); Segmented Neutrophils % 71.4 %
[2018-02-03 05:03] LABS: Calcium 8.4 mg/dL (8.6-10.3); Potassium 4.1 mEq/L (3.5-5.1)
[2018-02-03] MEDS: amLODIPine 5 MG TABLET PO SCH ×2 (06:19→07:33)
[2018-02-03] MEDS: Sennosides 8.6 MG TABLET PO SCH (08:28)
[2018-02-03] MEDS: Gabapentin 300 MG CAPSULE PO SCH ×2 (08:29→21:21)
[2018-02-03] MEDS: Famotidine 20 MG TABLET PO SCH ×2 (08:29→21:21)
[2018-02-03] MEDS: Magnesium Oxide 400 MG TABLET PO SCH (08:30)
[2018-02-03] MEDS: Insulin DETEMIR 100 UNIT/ML X5UNITS SQ SCH (08:31)
[2018-02-03] MEDS: Piperacillin/Tazobactam 3.375 GM in 0.9 % Sodium Chloride Mini Bag 100 ML IVPB SCH ×2 (08:31→16:47)
--- NOTE | 2018-02-03 08:31 | Podiatry Progress Note ---
Date of Encounter: 02/03/18 Time of Encounter: 08:25 - Assessment and Plan (1) Chronic ulcer of right foot Current Visit: No Status: Chronic Assessment #1: Patient's postop day #2 stable wound VAC functioning. Awaiting bone cultures. Swab cultures revealed gram-negative jose alejandro sparse. #2 stable vital signs. No fever patient continues to improve #3 change wound VAC today Plan: #1 discussion with patient concerning post discharge care. Informed patient she must go to ECF for her best option to prevent limb loss/ amputation. Patient agrees to ECF placement. Notify social media director for placement as soon as possible #2 change wound VAC today #3 Continue broad-spectrum antibiotics await bone cultures Qualifiers: Non-pressure ulcer stage: with necrosis of bone Qualified Code(s): L97.514 - Non-pressure chronic ulcer of other part of right foot with necrosis of bone Subjective Principal diagnosis: Foot ulcer with osteomyelitis right calcaneus Interval history: Patient postop day #2 with no chest pain nausea vomiting fever chills. No leukocytosis. Patient resting comfortably in bed no complaints of pain. Wound VAC intact. 75-100 mL of serosanguineous drainage. Objective - Vital Signs Vital Signs: Vital Signs Temp Pulse Resp BP Pulse Ox 02/03/18 08:12 98.0 F 75 17 180/86 95 02/03/18 05:58 183/93 02/03/18 05:14 169/84 02/03/18 04:37 160/79 02/03/18 04:04 178/79 02/03/18 03:13 97.7 F 70 18 175/82 96 02/02/18 23:34 167/82 02/02/18 23:25 97.8 F 83 18 191/80 98 02/02/18 19:00 98.2 F 74 18 169/81 96 02/02/18 16:42 97.8 F 74 17 185/91 98 02/02/18 12:05 97.9 F 78 17 206/94 97 Intake and Output 02/02/18 02/03/18 02/03/18 23:59 07:59 15:59 Intake Total 100 / 100 360 / 360 Output Total 300 / 300 1400 / 1400 350 / 350 Balance -200 / -200 -1400 / -1400 10 / 10 Intake: IV Fluids 100 / 100 Zosyn 3.375 GM In 0.9 % Sodium 100 / 100 Chloride (Mini-Bag +) 100 ML @ 25 mls/hr IVPB Q8HR [facility] Rx#: [id number] Oral 360 / 360 Output: Urine 300 / 300 1400 / 1400 350 / 350 Other: Weight 137.4 kg Blood Glucose* 285 227 Patient Weight 02/03/18 23:59 Weight 137.4 kg - Lab Result Diagrams: 02/03/18 04:32 02/03/18 04:32 Labs: Abnormal lab results RBC 3.57 M/mcL (3.82-4.97) L 02/03/18 04:32 Hgb 9.4 g/dL (11.5-15.4) L 02/03/18 04:32 Hct 30.2 % (35.3-44.9) L 02/03/18 04:32 MCH 26.3 pg (28.0-33.3) L 02/03/18 04:32 MCHC 31.1 g/dL (31.6-35.5) L 02/03/18 04:32 RDW 15.9 % (11.5-14.5) H 02/03/18 04:32 Reticulocyte # 0.04 M/mcL (0.05-0.10) L 02/01/18 03:50 ESR 126 mm/hr (0-15) H 01/29/18 13:51 Percent Retic 1.3 % (1.6-2.8) L 02/01/18 03:50 Retic Hgb Equivalent 26.5 pg (28.61-36.33) L 02/01/18 03:50 PT 13.4 Seconds (9.4-12.1) H 01/29/18 13:51 Sodium 134 mEq/L (136-145) L 02/03/18 04:32 Carbon Dioxide 21 mEq/L (23-29) L 02/03/18 04:32 BUN 22 mg/dL (6-20) H 02/03/18 04:32 Creatinine 1.35 mg/dL (0.60-1.20) H 02/03/18 04:32 Est GFR ( Amer) 50 (> 60) L 02/03/18 04:32 Est GFR (Non-Af Amer) 41 (> 60) L 02/03/18 04:32 Glucose 223 mg/dL (70-105) H 02/03/18 04:32 POC Glucose 285 mg/dL (70-99) H 02/02/18 19:36 Hemoglobin A1c 10.3 % (-5.6) H 01/29/18 13:51 Calcium 8.4 mg/dL (8.6-10.3) L 02/03/18 04:32 Transferrin 178 mg/dL (203-362) L 02/01/18 03:50 Ferritin 186 ng/mL (10-120) H 02/01/18 03:50 AST 11 Units/L (13-39) L 02/01/18 03:50 Alkaline Phosphatase 124 Units/L (34-104) H 02/01/18 03:50 Albumin 2.6 g/dL (3.5-5.7) L 02/01/18 03:50 Globulin 4.1 g/dL (2.4-3.5) H 02/01/18 03:50 Albumin/Globulin Ratio 0.6 (1.1-2.2) L 02/01/18 03:50 HDL Cholesterol 31 mg/dL (40-59) L 01/30/18 04:00 Microbiology, Last 48 Hours 01/30/18 14:00 Wound Culture - Final Right Foot Pseudomonas aeruginosa Enterobacter cloacae complex Enterococcus species 01/30/18 14:00 Surgical Biopsy Culture - Preliminary Right Foot Enterobacter cloacae complex Pseudomonas aeruginosa 01/30/18 14:00 Anaerobic Culture - Preliminary Right Foot At this time, no anaerobic growth is present. The culture will be finalized after 5 days of incubation. Consult Discharge Plan - Plan Referrals: cali,Matteo Velez MD [Primary Care Provider] -
[2018-02-03] MEDS: Insulin LISPRO 300 UNITS/3 ML VIAL SQ SCH ×4 (08:33→21:21)
[2018-02-03] MEDS ORDERED: Aminoglycoside Consult 1 EACH MC ONE (08:56)
--- NOTE | 2018-02-03 10:48 | Internal Med Progress Note ---
Date of Encounter: 02/03/18 Time of Encounter: 10:48 - Assessment and plan (1) Chronic ulcer of right foot Current Visit: No Status: Chronic Assessment and plan: Underwent surgical debridement per Dr. Walker Continue with wound VAC and dressing changes per Dr. Walker Preliminary culture results show gram-negative rods pseudomonas and enterococcus species Continue with Zosyn day 5 We will consult infectious disease-appreciate recommendations Discharged to ECF once okay with with infectious disease and Dr. Walker Qualifiers: Non-pressure ulcer stage: with necrosis of bone Qualified Code(s): L97.514 - Non-pressure chronic ulcer of other part of right foot with necrosis of bone (2) Cellulitis of right lower extremity Current Visit: No Status: Acute Assessment and plan: Underwent surgical debridement-wound VAC in place Continue with IV Zosyn Infectious disease consulted and appreciate recommendations (3) Type 2 diabetes mellitus Current Visit: No Status: Chronic Assessment and plan: Will continue home dose of basal insulin-blood sugar stable, continue to monitor Qualifiers: Diabetes mellitus oven press tender insulin use: with oven press tender use Diabetes mellitus complication status: with circulatory complication Diabetes mellitus complication detail: with other circulatory complications Qualified Code(s): E11.59 - Type 2 diabetes mellitus with other circulatory complications; Z79.4 - laser beam color scanner operator (current) use of insulin (4) Peripheral neuropathy Current Visit: No Status: Acute Assessment and plan: Continue home dose of Neurontin Qualifiers: Peripheral neuropathy type: polyneuropathy, unspecified Qualified Code(s): G62.9 - Polyneuropathy, unspecified (5) Hyperlipidemia Current Visit: No Status: Chronic Assessment and plan: Continue statin Qualifiers: Hyperlipidemia type: mixed hyperlipidemia Qualified Code(s): E78.2 - Mixed hyperlipidemia (6) Tobacco abuse Current Visit: No Status: Acute Assessment and plan: Encouraged patient to stop smoking- (7) CKD (chronic kidney disease) stage 3, GFR 30-59 ml/min Current Visit: No Status: Chronic Assessment and plan: Creatinine stable around baseline continue to monitor Monitor intake and output daily weights Avoid nephrotoxins (8) Hypertension Current Visit: No Status: Chronic Assessment and plan: Controlled; continue home dose of blood pressure medications continue to monitor Qualifiers: Hypertension type: essential hypertension Qualified Code(s): I10 - Essential (primary) hypertension (9) Anemia Current Visit: Yes Status: Acute Assessment and plan: 1 stable at this time we will continue with oral iron-. Hemoglobin improved back to baseline we will continue to monitor Qualifiers: Anemia type: unspecified type Qualified Code(s): D64.9 - Anemia, unspecified (10) Hyponatremia Current Visit: No Status: Chronic Assessment and plan: Stable appears to be chronic appears to be back to baseline we will continue to monitor (11) DVT prophylaxis Current Visit: No Status: Acute Assessment and plan: SCD dt anemia- allergy to heparin - Time Spent With Patient Total time spent is greater than 50% in coordination of care (as documented) at patient's floor/unit and/or counseling patient: - Subjective Interval history: Patient seen and examined at bedside. Denies any pain or discomfort -wound VAC in place - Constitutional Vitals: Temp Pulse Resp BP Pulse Ox 98.0 F 75 17 180/86 95 02/03/18 08:12 02/03/18 08:12 02/03/18 08:12 02/03/18 08:12 02/03/18 08:47 General appearance: Present: A&O X 3, morbidly obese, no acute distress - Head Head exam: Present: atraumatic, normocephalic - Eye Eye exam: Present: PERRL, conjuntiva pink, sclera anicteric Pupils: Present: PERRL - Neck Neck exam general surgery: Present: supple, trachea midline. Absent: lymphadenopathy - Respiratory Respiratory exam: Present: CTAB. Absent: accessory muscle use, rales, rhonchi, wheezes - Cardiovascular Cardiovascular exam: Present: RRR, +S1, +S2. Absent: diastolic murmur, gallop, rubs, systolic murmur - GI/Abdominal GI/Abdominal exam: Present: normal bowel sounds, soft, no peritoneal signs. Absent: distended, tenderness - Extremities Exam Extremities exam: Present: warm, radial pulses palpable and symmetrical. Absent : calf tenderness, cyanotic, pedal edema - Neurological Exam Neurological exam: Present: CN II-XII intact, oriented X3, no focal deficits. Absent: pronater drift, facial droop, speech deficit - Skin Skin exam: Present: dry, intact Internal Medicine: Result - Labs CBC & Chem 7: 02/03/18 04:32 02/03/18 04:32 Labs: Short CBC 02/03/18 Range/Units 04:32 WBC 7.8 (4.3-11.1) K/mcL Hgb 9.4 L (11.5-15.4) g/dL Hct 30.2 L (35.3-44.9) % Plt Count 332 (140-400) K/mcL Neutrophils # 5.6 (1.6-8.9) K/mcL BMP 02/03/18 04:32 Sodium 134 L Potassium 4.1 Chloride 107 Carbon Dioxide 21 L BUN 22 H Creatinine 1.35 H Glucose 223 H Calcium 8.4 L - ABG Interpretation ABG results: PT/INR, D-dimer PT 13.4 Seconds (9.4-12.1) H 01/29/18 13:51 Consult Discharge Plan - Plan Referrals: Matteo Love MD [Primary Care Provider] -
--- NOTE | 2018-02-03 13:36 | Podiatry Progress Note ---
Date of Encounter: 02/03/18 Time of Encounter: 12:45 - Assessment and Plan (1) Cellulitis of right lower extremity Current Visit: No Status: Acute (2) Non-healing ulcer Current Visit: No Status: Acute Assessment: Wound vac intact to right foot with 25 ml of serosanguineous drainage observed to canister. WBC: 7.8, temp: 98.0 F Microbiology 01/30/18 14:00 Right Foot Surgical Biopsy Culture - Final Enterobacter cloacae complex Pseudomonas aeruginosa 01/30/18 14:00 Right Foot Wound Culture - Final Pseudomonas aeruginosa Enterobacter cloacae complex Enterococcus species Plan: Patient will require wound vac post discharge. Remain non weight bearing to the [employer] hotel services supervisor coordinating ECF placement. Follow up with Dr. Walker in wound care one week after discharge from hospital. Qualifiers: Non-pressure ulcer stage: unspecified non-pressure ulcer stage Qualified Code(s): L98.499 - Non-pressure chronic ulcer of skin of other sites with unspecified severity (3) Type 2 diabetes mellitus Current Visit: No Status: Chronic Qualifiers: Diabetes mellitus inspector salvage insulin use: with inspector salvage use Diabetes mellitus complication status: with circulatory complication Diabetes mellitus complication detail: with other circulatory complications Qualified Code(s): E11.59 - Type 2 diabetes mellitus with other circulatory complications; Z79.4 - prison (current) use of insulin (4) Peripheral neuropathy Current Visit: No Status: Acute Qualifiers: Peripheral neuropathy type: polyneuropathy, unspecified Qualified Code(s): G62.9 - Polyneuropathy, unspecified (5) CKD (chronic kidney disease) stage 3, GFR 30-59 ml/min Current Visit: No Status: Chronic Subjective Principal diagnosis: Foot ulcer with osteomyelitis right calcaneus Interval history: Patient is sitting up in bed s/p incision and drainage and debridement multiple planes right foot, calcaneal ostectomy and application of graft jacket with wound VAC by Dr. Walker on 01/30/18. Patient is sitting up in bed eating lunch. Denies any pain, wound vac intact to left foot. Patient states she is feeling good. Patient denies fever, chills, calf pain or flu like symptoms. Objective - Vital Signs Vital Signs: Vital Signs Temp Pulse Resp BP Pulse Ox 02/03/18 11:24 97.8 F 76 18 181/78 96 02/03/18 08:47 95 06/25/18 08:12 98.0 F 75 17 180/86 95 02/03/18 05:58 183/93 02/03/18 05:14 169/84 02/03/18 04:37 160/79 02/03/18 04:04 178/79 02/03/18 03:13 97.7 F 70 18 175/82 96 02/02/18 23:34 167/82 02/02/18 23:25 97.8 F 83 18 191/80 98 02/02/18 19:00 98.2 F 74 18 169/81 96 02/02/18 16:42 97.8 F 74 17 185/91 98 Intake and Output 02/02/18 02/03/18 02/03/18 23:59 07:59 15:59 Intake Total 100 / 100 100 / 100 820 / 820 Output Total 300 / 300 1400 / 1400 650 / 650 Balance -200 / -200 -1300 / -1300 170 / 170 Intake: IV Fluids 100 / 100 100 / 100 100 / 100 Zosyn 3.375 GM In 0.9 % Sodium 100 / 100 100 / 100 100 / 100 Chloride (Mini-Bag +) 100 ML @ 25 mls/hr IVPB Q8HR [facility] Rx#: [id number] Oral 720 / 720 Output: Urine 300 / 300 1400 / 1400 650 / 650 Other: Meal Breakfast Percent of Meal Consumed 100% Weight 137.4 kg Blood Glucose* 285 327 Patient Weight 02/03/18 23:59 Weight 137.4 kg - Exam Exam: General appearance: alert awake oriented X 3. Calm and pleasant, no acute distress.. Vascular: Right: Pedal pulses palpable No evidence of cyanosis, pallor or rubor , Edema graded at 1+/4, Skin Temperature warm, No calf pain with manual compression. capillary refill time is immediate to digits. . Postop Exam: S/P Small black [place] wound sponge intact to right foot with 25 mls of serosanguineous drainage observed to canister. odor, no erythema, no streaking. Minimal edema. - Lab Result Diagrams: 02/03/18 04:32 02/03/18 04:32 Labs: Abnormal lab results RBC 3.57 M/mcL (3.82-4.97) L 02/03/18 04:32 Hgb 9.4 g/dL (11.5-15.4) L 02/03/18 04:32 Hct 30.2 % (35.3-44.9) L 02/03/18 04:32 MCH 26.3 pg (28.0-33.3) L 02/03/18 04:32 MCHC 31.1 g/dL (31.6-35.5) L 02/03/18 04:32 RDW 15.9 % (11.5-14.5) H 02/03/18 04:32 Reticulocyte # 0.04 M/mcL (0.05-0.10) L 02/01/18 03:50 ESR 126 mm/hr (0-15) H 01/29/18 13:51 Percent Retic 1.3 % (1.6-2.8) L 02/01/18 03:50 Retic Hgb Equivalent 26.5 pg (28.61-36.33) L 02/01/18 03:50 PT 13.4 Seconds (9.4-12.1) H 01/29/18 13:51 Sodium 134 mEq/L (136-145) L 02/03/18 04:32 Carbon Dioxide 21 mEq/L (23-29) L 02/03/18 04:32 BUN 22 mg/dL (6-20) H 02/03/18 04:32 Creatinine 1.35 mg/dL (0.60-1.20) H 02/03/18 04:32 Est GFR ( Amer) 50 (> 60) L 02/03/18 04:32 Est GFR (Non-Af Amer) 41 (> 60) L 02/03/18 04:32 Glucose 223 mg/dL (70-105) H 02/03/18 04:32 POC Glucose 285 mg/dL (70-99) H 02/02/18 19:36 Hemoglobin A1c 10.3 % (-5.6) H 01/29/18 13:51 Calcium 8.4 mg/dL (8.6-10.3) L 02/03/18 04:32 Transferrin 178 mg/dL (203-362) L 02/01/18 03:50 Ferritin 186 ng/mL (10-120) H 02/01/18 03:50 AST 11 Units/L (13-39) L 02/01/18 03:50 Alkaline Phosphatase 124 Units/L (34-104) H 02/01/18 03:50 Albumin 2.6 g/dL (3.5-5.7) L 02/01/18 03:50 Globulin 4.1 g/dL (2.4-3.5) H 02/01/18 03:50 Albumin/Globulin Ratio 0.6 (1.1-2.2) L 02/01/18 03:50 HDL Cholesterol 31 mg/dL (40-59) L 01/30/18 04:00 Microbiology, Last 48 Hours 01/30/18 14:00 Surgical Biopsy Culture - Final Right Foot Enterobacter cloacae complex Pseudomonas aeruginosa 01/30/18 14:00 Wound Culture - Final Right Foot Pseudomonas aeruginosa Enterobacter cloacae complex Enterococcus species 01/30/18 14:00 Anaerobic Culture - Preliminary Right Foot At this time, no anaerobic growth is present. The culture will be finalized after 5 days of incubation. Consult Discharge Plan - Plan Referrals: Kate,Matteo Velez MD [Primary Care Provider] -
--- NOTE | 2018-02-03 15:15 | Infectious Disease Consult ---
Date of Encounter: 02/03/18 Time of Encounter: 14:40 Assessment and Plan (1) Chronic ulcer of right foot Status: Chronic Assessment and plan: Patient has been dealing with right foot ulcers for at least 5 years s/p I&D with ostectomy and wound vac placement on 01/30 Podiatry following, wound care and activity restrictions per primary secondary to uncontrolled diabetes Qualifiers: Non-pressure ulcer stage: with necrosis of bone Qualified Code(s): L97.514 - Non-pressure chronic ulcer of other part of right foot with necrosis of bone (2) Chronic osteomyelitis Status: Chronic Assessment and plan: Secondary to chronic diabetic foot ulcer s/p I&D with debridement, ostectomy, and wound vac placement by podiatry on 01/30 Wound cultures obtained intra-operatively growing sutton-sensitive Pseudomonas, Enterobacter Colacae, and Enterococcus species Blood and anaerobic cultures negative so far Agree with continuing Zosyn for now If patient is to be discharged to ECF, may consider changing to Levaquin q24 / Ampicillin continuous infusion for ease of dosing Will speak with pharmacist about these options ESR initially elevated at 126, will obtain CRP in AM (3) Cellulitis of left lower extremity Status: Acute Assessment and plan: Patient did not complete outpatient Doxycycline Management with IV antibiotics as above Blood cultures remain negative (4) Peripheral neuropathy Status: Acute Qualifiers: Peripheral neuropathy type: polyneuropathy, unspecified Qualified Code(s): G62.9 - Polyneuropathy, unspecified (5) CKD (chronic kidney disease) stage 3, GFR 30-59 ml/min Status: Chronic (6) Hypertension Status: Chronic Qualifiers: Hypertension type: essential hypertension Qualified Code(s): I10 - Essential (primary) hypertension (7) Peripheral arterial disease Status: Acute Infectious Disease HPI - Data of Consult Patient: known to practice within the last 3 years Consult date: 02/03/18 Requesting Physician: Matteo Walker, Primary Care Provider: Matteo Love MD - Consult Narrative Reason for consult: Wound culture positive for Pseudomonas/Enterobacter History of present illness: Ms. Mccallum is a 52 year old female with past medical history of diabetes with peripheral neuropathy, CAD, hypertension, hyperlipidemia, chronic kidney disease stage III who presented from a wound care visit on January 29 for worsening of right diabetic foot ulcer and chronic osteomyelitis. We are being consulted today for wound culture that is positive for Pseudomonas and Enterobacter. Improve, patient has medical history as states above presented to Dr. Walker for routine wound care on January [address]. [address] Walker noted the wound appeared worse and her right calcaneus was exposed, and she was advised to be admitted to the hospital. Initial vitals upon presentation was temperature 98.3, heart rate 86, respiratory rate 16, blood pressure of 116/73. Initial white count was 10.3, ESR was 126. X-ray demonstrated soft tissue ulceration with chronic deformity of calcaneus. Patient was started on Zosyn and podiatry performed incision and drainage, ostectomy of the calcaneus, and wound VAC placement on January 30. Wound cultures eventually grew pansensitive Pseudomonas with penicillin resistant Enterobacter, and vancomycin was added on the . Patient has a long history of chronic right osteomyelitis. She states she has been dealing with this for the last 5 years has been nonweightbearing per podiatry recommendations. She was recently admitted here last month for sepsis secondary to cellulitis of the right extremity. Blood cultures obtained during that visit was positive for Streptococcus mitis and Streptococcus anginosus and she was sent home on 2 weeks of penicillin IV. Patient states that one week after discharge, she developed left lower extremity cellulitis and her PCP prescribed her doxycycline for 1 week which she had yet to finish. During today's examination, patient has remained afebrile and not tachycardic during her stay and her white count has been within normal limits. She normally does not have any sensation in her lower extremities and she does not complain of any pain today. She states her breathing is normal and she denies any nausea, vomiting, diarrhea, fevers. Prior to admission, patient lives at home with her grandson and had home health services daily. She denies any recent sick contacts, travel. Patient currently does not work, but previously worked at a [employer] and denies any exposures. CC: Matteo Walker, Past Med Surg Social Fam HX - Past Medical History Medical history: coronary artery disease, diabetes, GERD, hyperlipidemia, hypertension, peripheral artery disease, renal disease Psychiatric history: depression - Past Surgical History Surgical History: angioplasty/stent, orthopedic, other, other Additional surgical history: right foot surgery, tubes tied. - Social History Smoking Status: Current every day smoker Packs per day: 1 Smokeless Tobacco Status: No Alcohol use: none Drug use: none - Family History Mother Family Member Ethnicity: Non- Living Status: Still Living Hx Family Cardiac Disorders: Yes Hx Family Endocrine Disorder: Yes (type 2 diabetes) Father Family Member Ethnicity: Non- Living Status: Still Living Hx Family Endocrine Disorder: Yes (type 2 diabetes) Infectious Disease-CN:Meds Atorvastatin Calcium [Lipitor] 80 mg PO DAILY 08/21/16 [History] Clopidogrel [Plavix] 75 mg PO DAILY 08/21/16 [History] Ferrous Sulfate 325 mg PO BIDWM 08/21/16 [History] Gabapentin [Neurontin] 300 mg PO BID 08/21/16 [History] Lisinopril [Zestril] 10 mg PO DAILY 08/21/16 [History] Magnesium Oxide [Magnesium] 400 mg PO DAILY 08/21/16 [History] Nitroglycerin [Nitrostat] 0.4 mg SL Q5M PRN 08/21/16 [History] Ranitidine HCl [Acid Gandy Dancer] 150 mg PO BID 08/21/16 [History] Sertraline [Zoloft] 100 mg PO DAILY 08/21/16 [History] Metformin HCl [Glucophage] 1,000 mg PO BID 03/28/17 [History] Insulin ASPART [NovoLOG] 0 unit SQ TIDWM 06/19/17 [History] Sennosides [Senna] 8.6 mg PO DAILY 06/19/17 [History] Insulin Glargine,Hum.rec.anlog [Basaglar Kwikpen U-100] 60 unit SQ QAM 12/30/17 [History] Penicillin G Potassium [Pfizerpen] 12,000,000 unit IVPB DAILY #14 vial 01/03/18 [Rx] Acetaminophen [Tylenol] 650 mg PO Q6HR PRN #30 tablet 01/23/18 [Rx] 3 Allergy/AdvReac Type Severity Reaction Status Date / Time Hydromorphone [From Dilaudid] Allergy Palpitation Verified 01/23/18 22:11 s heparin AdvReac See Verified 01/23/18 22:11 Comments Review of systems: 10 point review of systems done, negative other for what mentioned in the history of present illness - Constitutional Constitutional: Absent: chills, fever(s), weakness - Cardiovascular Cardiovascular: Absent: chest pain with activity, claudication, dyspnea, edema, leg edema - Respiratory Respiratory: Absent: cough, hemoptysis, wheezing - Gastrointestinal Gastrointestinal: Absent: diarrhea, melena, nausea, vomiting - Genitourinary Genitourinary: Absent: urinary frequency, urinary urgency - Musculoskeletal Musculoskeletal: Present: numbness. Absent: joint swelling, tingling - Integumentary Integumentary: Present: erythema, new lesions, non-healing lesions, skin ulcer Exam - Constitutional Vitals: Temp Pulse Resp BP Pulse Ox 97.8 F 76 18 159/76 96 02/03/18 11:24 02/03/18 11:24 02/03/18 11:24 02/03/18 13:45 02/03/18 11:24 General appearance: cooperative, no acute distress, obese, no febrile - Head Head exam: Present: atraumatic, normocephalic - Eye Eye exam: Present: EOMI, PERRL, sclera anicteric - ENT ENT exam: Present: mucous membranes dry Additional comments: No oral lesions noted - Neck Neck exam: Present: full ROM. Absent: meningismus - Respiratory Respiratory exam: Present: rhonchi. Absent: decreased breath sounds, rales, stridor, wheezes - Cardiovascular Cardiovascular exam: Present: RRR. Absent: diastolic murmur, irregular rhythm, systolic murmur, tachycardia - GI/Abdominal GI/Abdominal exam: Present: normal bowel sounds, soft. Absent: tenderness - Extremities Exam Additional comments: both feet are wrapped right foot has wound vac in place, draining serosanguinous fluid - Neurological Exam Neurological exam: Present: alert, no focal deficits. Absent: altered, speech deficit - Psychiatric Psychiatric exam: Present: normal affect, normal mood - Skin Skin exam: Present: normal color. Absent: rash Infectious Disease CN: Results - Labs CBC & Chem 7: 02/03/18 04:32 02/03/18 04:32 Cultures: Cultures 01/30/18 14:00 Surgical Biopsy Culture - Final Right Foot Enterobacter cloacae complex Pseudomonas aeruginosa 01/30/18 14:00 Wound Culture - Final Right Foot Pseudomonas aeruginosa Enterobacter cloacae complex Enterococcus species 01/30/18 14:00 Anaerobic Culture - Preliminary Right Foot At this time, no anaerobic growth is present. The culture will be finalized after 5 days of incubation. 01/29/18 14:52 Blood Culture - Preliminary Peripheral Venipuncture Culture is incubating and being continuously monitored for growth. Final report to follow. 01/29/18 14:53 Blood Culture - Preliminary Peripheral Venipuncture Culture is incubating and being continuously monitored for growth. Final report to follow. Consult Discharge Plan - Plan Referrals: Matteo Love MD [Primary Care Provider] - - Attending Attestation I examined this patient and my medical decision-making was reviewed with the Resident Physician. I agree with the documented findings, disposition and treatment plan as described except to the extent set forth below. This is an addendum to original report dictated by resident physician. Please refer to residents note for full detail. Patient is 52-year-old woman with past medical history mentioned below came in for worsening right diabetic foot ulcer and chronic osteomyelitis. We were consult for antibiotics recommendations. Assessment and plan: Acute on chronic osteomyelitis of the right calcaneus; causative organism since it is aeruginosa, Enterobacter cloacae and ampicillin sensitive yet Vancomycin- resistant enterococcus species. Initial ESR 126. Cellulitis of the left lower extremity Diabetes mellitus type 2 poorly controlled Chronic kidney disease stage III peripheral neuropathy Hypertension peripheral artery disease Recommendations: Continue Zosyn for now. Continue 3.375 g every 8 hours for our infusion. On discharge to the [facility] it might be harder to do every 8 hour 4 hour infusion at the [facility]. I might consider doing ampicillin plus Levaquin. Levaquin will be dosed once daily that was cover the Enterobacter and Pseudomonas in the ampicillin was cover the enterococcus. The ampicillin would be continuous pump. We will discuss with pharmacy in the morning. Check baseline CRP so I can trend as outpatient.
[2018-02-04] MEDS: Piperacillin/Tazobactam 3.375 GM in 0.9 % Sodium Chloride Mini Bag 100 ML IVPB SCH ×4 (00:35→22:51)
[2018-02-04] MEDS: Famotidine 20 MG TABLET PO SCH ×2 (08:38→20:31)
[2018-02-04] MEDS: Sennosides 8.6 MG TABLET PO SCH (08:39)
[2018-02-04] MEDS: Gabapentin 300 MG CAPSULE PO SCH ×2 (08:39→20:31)
[2018-02-04] MEDS: Magnesium Oxide 400 MG TABLET PO SCH (08:39)
[2018-02-04] MEDS: amLODIPine 5 MG TABLET PO SCH (08:40)
[2018-02-04] MEDS: Insulin DETEMIR 100 UNIT/ML X5UNITS SQ SCH (08:42)
[2018-02-04] MEDS: Insulin LISPRO 300 UNITS/3 ML VIAL SQ SCH ×4 (08:42→20:32)
--- NOTE | 2018-02-04 08:55 | Internal Med Progress Note ---
Date of Encounter: 02/04/18 Time of Encounter: 08:53 - Assessment and plan (1) Chronic ulcer of right foot Current Visit: No Status: Chronic Assessment and plan: Chronic diabetic foot ulcer of right Poorly controlled DM hgb A1c 10.3 Underwent surgical debridement per Dr. Walker Wound VAC in place Continue dressing changes per Dr. Walker's recommendations Preliminary culture results show gram-negative rods pseudomonas and enterococcus species (S) to Zosyn, continue ID seeing in consultation; appreciate recommendations Discharged to [facility] once okay with with infectious disease and Dr. Walker Qualifiers: Non-pressure ulcer stage: with necrosis of bone Qualified Code(s): L97.514 - Non-pressure chronic ulcer of other part of right foot with necrosis of bone (2) Cellulitis of right lower extremity Current Visit: No Status: Acute Assessment and plan: See above (3) Chronic osteomyelitis Current Visit: No Status: Chronic Assessment and plan: see above (4) Type 2 diabetes mellitus Current Visit: No Status: Chronic Assessment and plan: FSBG stable this morning ontinue home dose of basal insulin continue to monitor Qualifiers: Diabetes mellitus care home insulin use: with termite control technician use Diabetes mellitus complication status: with circulatory complication Diabetes mellitus complication detail: with other circulatory complications Qualified Code(s): E11.59 - Type 2 diabetes mellitus with other circulatory complications; Z79.4 - emt intermediate (current) use of insulin (5) Hyponatremia Current Visit: No Status: Chronic Assessment and plan: Stable,continue to monitor (6) Peripheral neuropathy Current Visit: No Status: Acute Assessment and plan: taking Neurontin Qualifiers: Peripheral neuropathy type: polyneuropathy, unspecified Qualified Code(s): G62.9 - Polyneuropathy, unspecified (7) Hyperlipidemia Current Visit: No Status: Chronic Assessment and plan: statin Qualifiers: Hyperlipidemia type: mixed hyperlipidemia Qualified Code(s): E78.2 - Mixed hyperlipidemia (8) Tobacco abuse Current Visit: No Status: Acute Assessment and plan: discussed tobacco cessation and options for quitting (9) CKD (chronic kidney disease) stage 3, GFR 30-59 ml/min Current Visit: No Status: Chronic Assessment and plan: Creatinine stable and at baseline daily labs to monitor renal function Monitor intake and output daily weights Avoid nephrotoxins (10) Hypertension Current Visit: No Status: Chronic Assessment and plan: H/O HTN, BP elevated today 168/77 continue home dose of blood pressure medications continue to monitor closely and add adjunct therapy PRN PRN hydralazine Qualifiers: Hypertension type: essential hypertension Qualified Code(s): I10 - Essential (primary) hypertension (11) Anemia Current Visit: Yes Status: Acute Assessment and plan: 2/2 chronic Rt diabetic foot ulcer stable at this time we will continue with oral iron Hemoglobin stable continue to monitor Qualifiers: Anemia type: unspecified type Qualified Code(s): D64.9 - Anemia, unspecified (12) DVT prophylaxis Current Visit: No Status: Acute Assessment and plan: continue SCD's - Time Spent With Patient Total time spent is greater than 50% in coordination of care (as documented) at patient's floor/unit and/or counseling patient: 25 - 35 minutes - Subjective Interval history: Patient seen and examined at bedside today, no acute changes overnight. Denies any pain or discomfort of Rt foot. - Constitutional Vitals: Temp Pulse Resp BP Pulse Ox 97.7 F 70 18 168/77 97 02/04/18 08:12 02/04/18 08:12 02/04/18 08:12 02/04/18 08:12 02/04/18 08:12 General appearance: Present: A&O X 3, morbidly obese, no acute distress - Head Head exam: Present: atraumatic, normocephalic - Eye Eye exam: Present: PERRL, conjuntiva pink, sclera anicteric Pupils: Present: PERRL - Neck Neck exam general surgery: Present: supple, trachea midline. Absent: lymphadenopathy - Respiratory Respiratory exam: Present: CTAB. Absent: accessory muscle use, rales, rhonchi, wheezes - Cardiovascular Cardiovascular exam: Present: RRR, +S1, +S2. Absent: diastolic murmur, gallop, rubs, systolic murmur, tachycardia - GI/Abdominal GI/Abdominal exam: Present: normal bowel sounds, soft, no peritoneal signs. Absent: distended, tenderness - Extremities Exam Extremities exam: Present: warm, radial pulses palpable and symmetrical. Absent : calf tenderness, cyanotic, pedal edema - Expanded Lower Extremities Exam 1 - rt diabetic foot ulcer, unble to adequately assess wound margins or wound bed d/t wound vac - Neurological Exam Neurological exam: Present: CN II-XII intact, oriented X3, no focal deficits. Absent: pronater drift, facial droop, speech deficit - Skin Skin exam: Present: dry, intact Internal Medicine: Result - Labs CBC & Chem 7: 02/03/18 04:32 02/03/18 04:32 - ABG Interpretation ABG results: PT/INR, D-dimer PT 13.4 Seconds (9.4-12.1) H 01/29/18 13:51 - VTE Documentation of Mechanical Device: Intermittent pneumatic compression device Consult Discharge Plan - Plan Referrals: Kate,Matteo Velez MD [Primary Care Provider] -
--- NOTE | 2018-02-04 10:09 | Infectious Disease Progress No ---
Date of Encounter: 02/04/18 Time of Encounter: 10:07 - Assessment and Plan (1) Chronic ulcer of right foot Current Visit: No Status: Chronic Patient has been dealing with right foot ulcers for at least 5 years s/p I&D with ostectomy and wound vac placement on 01/30 Podiatry following, wound care and activity restrictions per primary secondary to uncontrolled diabetes Qualifiers: Non-pressure ulcer stage: with necrosis of bone Qualified Code(s): L97.514 - Non-pressure chronic ulcer of other part of right foot with necrosis of bone (2) Chronic osteomyelitis Current Visit: No Status: Chronic Secondary to chronic diabetic foot ulcer s/p I&D with debridement, ostectomy, and wound vac placement by podiatry on 01/30 Wound cultures obtained intra-operatively growing sutton-sensitive Pseudomonas, Enterobacter Colacae, and Enterococcus species Blood and anaerobic cultures negative so far Continue Zosyn for now If patient is to be discharged to ECF, may consider changing to Levaquin q24 / Ampicillin continuous infusion for ease of dosing Will speak with pharmacist about these options ESR initially elevated at 126, CRP 22 (3) Cellulitis of left lower extremity Current Visit: Yes Status: Acute Patient did not complete outpatient Doxycycline Management with IV antibiotics as above Blood cultures remain negative (4) Peripheral neuropathy Current Visit: No Status: Acute Qualifiers: Peripheral neuropathy type: polyneuropathy, unspecified Qualified Code(s): G62.9 - Polyneuropathy, unspecified (5) CKD (chronic kidney disease) stage 3, GFR 30-59 ml/min Current Visit: No Status: Chronic (6) Hypertension Current Visit: No Status: Chronic Qualifiers: Hypertension type: essential hypertension Qualified Code(s): I10 - Essential (primary) hypertension (7) Peripheral arterial disease Current Visit: No Status: Acute - Subjective Interval history: Pt seen and examined. She is doing well this morning and has no complaints of pain, shortness of breath or fevers. She ate her breakfast without any nausea, vomiting and has not reported any diarrhea. States she feels ready for discharge. Infect Dis PN-Objective Data - Labs CBC & Chem 7: 02/04/18 11:22 02/04/18 11:22 Labs: Laboratory Results - last 24 hr 02/03/18 02/03/18 02/03/18 08:13 11:25 16:47 POC Glucose 227 H 327 H 296 H C-Reactive Protein 02/03/18 02/04/18 20:08 06:01 POC Glucose 259 H C-Reactive Protein 22 H Cultures: Cultures 01/29/18 14:52 Blood Culture - Final Peripheral Venipuncture No growth. Final report. 01/29/18 14:53 Blood Culture - Final Peripheral Venipuncture No growth. Final report. 01/30/18 14:00 Surgical Biopsy Culture - Final Right Foot Enterobacter cloacae complex Pseudomonas aeruginosa 01/30/18 14:00 Wound Culture - Final Right Foot Pseudomonas aeruginosa Enterobacter cloacae complex Enterococcus species 01/30/18 14:00 Anaerobic Culture - Preliminary Right Foot At this time, no anaerobic growth is present. The culture will be finalized after 5 days of incubation. Exam - Constitutional Vitals: Temp Pulse Resp BP Pulse Ox 97.7 F 70 18 168/77 97 02/04/18 08:12 02/04/18 08:12 02/04/18 08:12 02/04/18 08:12 02/04/18 08:40 General appearance: cooperative, no acute distress, no febrile - Head Head exam: Present: atraumatic, normocephalic - Respiratory Respiratory exam: Present: CTAB. Absent: respiratory distress, rhonchi, stridor , wheezes - Cardiovascular Cardiovascular exam: Present: RRR. Absent: irregular rhythm, systolic murmur, tachycardia - GI/Abdominal GI/Abdominal exam: Present: normal bowel sounds, soft. Absent: tenderness - Extremities Exam Extremities exam: Present: pedal edema Additional comments: right foot wound vac in place both feet are dressed - VTE Documentation of Mechanical Device: Intermittent pneumatic compression device Consult Discharge Plan - Plan Referrals: [facility] [place],Matteo Velez MD [Primary Care Provider] - - Attending Attestation I examined this patient and my medical decision-making was reviewed with the Resident Physician. I agree with the documented findings, disposition and treatment plan as described except to the extent set forth below.
[2018-02-04 11:41] LABS: Basophils % 0.3 %; Eosinophils # 0.3 K/mcL (0.0-0.6); Eosinophils % 3.1 %; Hemoglobin 9.6 g/dL (11.5-15.4); Immature Granulocytes % 0.7 % (0-4); Lymphocytes # 1.1 K/mcL (0.6-4.6); Lymphocytes % 11.4 %; Mean Corpuscular Hemoglobin 26.4 pg (28.0-33.3); Mean Corpuscular Volume 85.4 fL (83.0-100.0); Mean Platelet Volume 9.5 fL (9.4-12.4); Monocytes # 0.6 K/mcL (0.0-1.3); Monocytes % 6.5 %; Neutrophils # 7.2 K/mcL (1.6-8.9); Platelet Count 332 K/mcL (140-400); Red Blood Count 3.63 M/mcL (3.82-4.97); Red Cell Distribution Width 16.1 % (11.5-14.5)
[2018-02-04 12:03] LABS: Calcium 8.8 mg/dL (8.6-10.3); Potassium 4.5 mEq/L (3.5-5.1)
[2018-02-04] MEDS: Acetaminophen 325 MG TABLET PO PRN (12:30)
--- NOTE | 2018-02-04 17:38 | Podiatry Progress Note ---
Date of Encounter: 02/04/18 Time of Encounter: 16:45 - Assessment and Plan (1) Cellulitis of right lower extremity Current Visit: No Status: Acute (2) Non-healing ulcer Current Visit: No Status: Acute Assessment: Wound vac intact to right foot with 25 ml of serosanguineous drainage observed to canister. WBC: 9.2 temp: 97.7 F Microbiology 01/30/18 14:00 Right Foot Surgical Biopsy Culture - Final Enterobacter cloacae complex Pseudomonas aeruginosa 01/30/18 14:00 Right Foot Wound Culture - Final Pseudomonas aeruginosa Enterobacter cloacae complex Enterococcus species Plan: Patient will require wound vac post discharge. Wound VAC to be changed every Saturday. Prep all surrounding skin with allkare skin barrier prep pads, apply drape, apply Adaptic to the graft jacket prior to application of small simpalce wound VAC sponge, connect to 150 mmhg medium, Rise: 2 minutes , Fall: 10 minutes. Remain non weight bearing to the E. web services developer coordinating ECF placement. Awaiting prior auth at [employer]. Patient okay to be discharged one approved at [employer]. Antibiotics per Infectious Disease. Follow up with Dr. Walker in wound care one week after discharge from hospital. 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 Walker on 01/30/18. Patient denies any pain, wound vac intact to right foot. Patient states she is feeling good. Patient denies fever, chills , calf pain or flu like symptoms. Patient is awaiting prior auth for [facility]. Objective - Vital Signs Vital Signs: Vital Signs Temp Pulse Resp BP Pulse Ox 02/04/18 16:26 97.7 F 71 17 174/76 98 02/04/18 11:59 97.8 F 77 16 175/79 96 02/04/18 08:40 97 02/04/18 08:12 97.7 F 70 18 168/77 97 02/04/18 03:07 98.4 F 70 14 179/75 97 02/03/18 22:28 98.0 F 71 14 179/82 98 02/03/18 18:40 97.8 F 74 16 181/80 97 Intake and Output 02/04/18 02/04/18 02/04/18 07:59 15:59 23:59 Intake Total 100 / 100 580 / 580 Output Total 1400 / 1400 650 / 650 Balance -1300 / -1300 -70 / -70 Intake: IV Fluids 100 / 100 100 / 100 Zosyn 3.375 GM In 0.9 % Sodium 100 / 100 100 / 100 Chloride (Mini-Bag +) 100 ML @ 25 mls/hr IVPB Q8HR [facility] Rx#: [id number] Oral 480 / 480 Output: Urine 1400 / 1400 650 / 650 Other: Meal Lunch Percent of Meal Consumed 100% Blood Glucose* 250 262 - Exam Exam: General appearance: alert awake oriented X 3. Calm and pleasant, no acute distress.. Vascular: Right: Pedal pulses palpable, No evidence of cyanosis, pallor or rubor , Edema graded at 1+/4, Skin Temperature warm, No calf pain with manual compression. capillary refill time is immediate to digits. Postop Exam: S/P Full thickness ulceration to the plantar aspect of the right heel measuring 7 cm in length x 5 cm in width, graft jacket in place to wound bed with laureano. Ulcer irrigated with saline, Adaptic applied to graft jacket with small simplace wound vac sponge. 60 mls of serosanguineous drainage observed to canister. No periwound erythema, no odor, no pus, no streaking, no fluctuance. - Lab Result Diagrams: 02/04/18 11:22 02/04/18 11:22 Labs: Abnormal lab results RBC 3.63 M/mcL (3.82-4.97) L 02/04/18 11:22 Hgb 9.6 g/dL (11.5-15.4) L 02/04/18 11:22 Hct 31.0 % (35.3-44.9) L 02/04/18 11:22 MCH 26.4 pg (28.0-33.3) L 02/04/18 11:22 MCHC 31.0 g/dL (31.6-35.5) L 02/04/18 11:22 RDW 16.1 % (11.5-14.5) H 02/04/18 11:22 Reticulocyte # 0.04 M/mcL (0.05-0.10) L 02/01/18 03:50 ESR 126 mm/hr (0-15) H 01/29/18 13:51 Percent Retic 1.3 % (1.6-2.8) L 02/01/18 03:50 Retic Hgb Equivalent 26.5 pg (28.61-36.33) L 02/01/18 03:50 PT 13.4 Seconds (9.4-12.1) H 01/29/18 13:51 Sodium 135 mEq/L (136-145) L 02/04/18 11:22 Carbon Dioxide 22 mEq/L (23-29) L 02/04/18 11:22 BUN 21 mg/dL (6-20) H 02/04/18 11:22 Creatinine 1.43 mg/dL (0.60-1.20) H 02/04/18 11:22 Est GFR ( Amer) 47 (> 60) L 02/04/18 11:22 Est GFR (Non-Af Amer) 38 (> 60) L 02/04/18 11:22 Glucose 244 mg/dL (70-105) H 02/04/18 11:22 POC Glucose 250 mg/dL (70-99) H 02/04/18 11:40 Hemoglobin A1c 10.3 % (-5.6) H 01/29/18 13:51 Transferrin 178 mg/dL (203-362) L 02/01/18 03:50 Ferritin 186 ng/mL (10-120) H 02/01/18 03:50 AST 11 Units/L (13-39) L 02/01/18 03:50 Alkaline Phosphatase 124 Units/L (34-104) H 02/01/18 03:50 C-Reactive Protein 22 mg/L (Less than 10) H 02/04/18 06:01 Albumin 2.6 g/dL (3.5-5.7) L 02/01/18 03:50 Globulin 4.1 g/dL (2.4-3.5) H 02/01/18 03:50 Albumin/Globulin Ratio 0.6 (1.1-2.2) L 02/01/18 03:50 HDL Cholesterol 31 mg/dL (40-59) L 01/30/18 04:00 Microbiology, Last 48 Hours 01/29/18 14:52 Blood Culture - Final Peripheral Venipuncture No growth. Final report. 01/29/18 14:53 Blood Culture - Final Peripheral Venipuncture No growth. Final report. 01/30/18 14:00 Surgical Biopsy Culture - Final Right Foot Enterobacter cloacae complex Pseudomonas aeruginosa 01/30/18 14:00 Wound Culture - Final Right Foot Pseudomonas aeruginosa Enterobacter cloacae complex Enterococcus species - VTE Documentation of Mechanical Device: Intermittent pneumatic compression device Consult Discharge Plan - Plan Referrals: Matteo Love MD [Primary Care Provider] -
[2018-02-05 07:11] LABS: Basophils % 0.5 %; Eosinophils # 0.3 K/mcL (0.0-0.6); Eosinophils % 4.3 %; Hematocrit 30.3 % (35.3-44.9); Immature Granulocytes % 0.5 % (0-4); Lymphocytes # 1.4 K/mcL (0.6-4.6); Mean Corpuscular HGB Conc 29.7 g/dL (31.6-35.5); Mean Corpuscular Hemoglobin 25.1 pg (28.0-33.3); Mean Corpuscular Volume 84.6 fL (83.0-100.0); Mean Platelet Volume 9.6 fL (9.4-12.4); Monocytes # 0.7 K/mcL (0.0-1.3); Platelet Count 345 K/mcL (140-400); Red Blood Count 3.58 M/mcL (3.82-4.97); Red Cell Distribution Width 16.3 % (11.5-14.5); Segmented Neutrophils % 66.7 %
[2018-02-05 07:37] LABS: Calcium 8.7 mg/dL (8.6-10.3); Potassium 4.4 mEq/L (3.5-5.1)
[2018-02-05] MEDS: Piperacillin/Tazobactam 3.375 GM in 0.9 % Sodium Chloride Mini Bag 100 ML IVPB SCH ×3 (07:52→23:44)
[2018-02-05] MEDS: Insulin LISPRO 300 UNITS/3 ML VIAL SQ SCH ×4 (07:53→20:32)
[2018-02-05] MEDS: Sennosides 8.6 MG TABLET PO SCH (07:56)
[2018-02-05] MEDS: Insulin DETEMIR 100 UNIT/ML X5UNITS SQ SCH (07:56)
[2018-02-05] MEDS: Gabapentin 300 MG CAPSULE PO SCH ×2 (07:56→20:32)
[2018-02-05] MEDS: Famotidine 20 MG TABLET PO SCH ×2 (07:56→20:32)
[2018-02-05] MEDS: amLODIPine 5 MG TABLET PO SCH (07:56)
[2018-02-05] MEDS: Magnesium Oxide 400 MG TABLET PO SCH (07:56)
--- NOTE | 2018-02-05 09:01 | Infectious Disease Progress No ---
Date of Encounter: 02/05/18 Time of Encounter: 08:50 - Assessment and Plan (1) Chronic ulcer of right foot Current Visit: Yes Status: Chronic Patient has been dealing with right foot ulcers for at least 5 years s/p I&D with ostectomy and wound vac placement on 01/30 Podiatry following, wound care and activity restrictions per primary secondary to uncontrolled diabetes Qualifiers: Non-pressure ulcer stage: with necrosis of bone Qualified Code(s): L97.514 - Non-pressure chronic ulcer of other part of right foot with necrosis of bone (2) Chronic osteomyelitis Current Visit: No Status: Chronic Secondary to chronic diabetic foot ulcer s/p I&D with debridement, ostectomy, and wound vac placement by podiatry on 01/30 Wound cultures obtained intra-operatively growing sutton-sensitive Pseudomonas, Enterobacter Colacae, and Enterococcus species Blood and anaerobic cultures negative so far Continue Zosyn for now Once patient is ready for discharge, recommend discharging with Levaquin q24 750 mg and Ampicillin continuous infusion at 12 gm a day for ease of dosing She has already received 1 week of Zosyn and will need 6 weeks total of antibiotics Will speak with pharmacist about these options ESR initially elevated at 126, CRP 22 (3) Cellulitis of left lower extremity Current Visit: Yes Status: Acute Patient did not complete outpatient Doxycycline Management with IV antibiotics as above Blood cultures remain negative (4) Uncontrolled diabetes mellitus Current Visit: Yes Status: Acute Qualifiers: Diabetes mellitus type: type 2 Diabetes mellitus mcc insulin use: with emt intermediate use Diabetes mellitus complication status: with unspecified complications Qualified Code(s): E11.8 - Type 2 diabetes mellitus with unspecified complications; E11.65 - Type 2 diabetes mellitus with hyperglycemia ; 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 She has no complaints this morning and states she is ready to go home. Does not report any pain in her feet, chest or abdomen. No issues with breathing, nausea, vomiting, diarrhea, fever or chills. Infect Dis PN-Objective Data - Labs CBC & Chem 7: 02/05/18 06:40 02/05/18 06:40 Labs: Laboratory Results - last 24 hr 02/04/18 02/04/18 02/04/18 08:16 11:22 11:22 WBC 9.2 RBC 3.63 L Hgb 9.6 L Hct 31.0 L MCV 85.4 MCH 26.4 L MCHC 31.0 L RDW 16.1 H Plt Count 332 MPV 9.5 Immature Gran % 0.7 Seg Neutrophils % 78.0 Lymphocytes % 11.4 Monocytes % 6.5 Eosinophils % 3.1 Basophils % 0.3 Neutrophils # 7.2 Lymphocytes # 1.1 Monocytes # 0.6 Eosinophils # 0.3 Basophils # 0.0 Sodium 135 L Potassium 4.5 Chloride 105 Carbon Dioxide 22 L BUN 21 H Creatinine 1.43 H Est GFR ( Amer) 47 L Est GFR (Non-Af Amer) 38 L BUN/Creatinine Ratio 15 Glucose 244 H POC Glucose 159 H Calculated Osmolality 291 Calcium 8.8 02/04/18 02/04/18 02/04/18 11:40 16:02 19:50 WBC RBC Hgb Hct MCV MCH MCHC RDW Plt Count MPV Immature Gran % Seg Neutrophils % Lymphocytes % Monocytes % Eosinophils % Basophils % Neutrophils # Lymphocytes # Monocytes # Eosinophils # Basophils # Sodium Potassium Chloride Carbon Dioxide BUN Creatinine Est GFR ( Amer) Est GFR (Non-Af Amer) BUN/Creatinine Ratio Glucose POC Glucose 250 H 262 H 232 H Calculated Osmolality Calcium 02/05/18 02/05/18 06:40 06:40 WBC 7.4 RBC 3.58 L Hgb 9.0 L Hct 30.3 L MCV 84.6 MCH 25.1 L MCHC 29.7 L RDW 16.3 H Plt Count 345 MPV 9.6 Immature Gran % 0.5 Seg Neutrophils % 66.7 Lymphocytes % 19.0 Monocytes % 9.0 Eosinophils % 4.3 Basophils % 0.5 Neutrophils # 5.0 Lymphocytes # 1.4 Monocytes # 0.7 Eosinophils # 0.3 Basophils # 0.0 Sodium 134 L Potassium 4.4 Chloride 105 Carbon Dioxide 21 L BUN 23 H Creatinine 1.38 H Est GFR ( Amer) 48 L Est GFR (Non-Af Amer) 40 L BUN/Creatinine Ratio 17 Glucose 249 H POC Glucose Calculated Osmolality 290 Calcium 8.7 Cultures: Cultures 01/29/18 14:52 Blood Culture - Final Peripheral Venipuncture No growth. Final report. 01/29/18 14:53 Blood Culture - Final Peripheral Venipuncture No growth. Final report. 01/30/18 14:00 Surgical Biopsy Culture - Final Right Foot Enterobacter cloacae complex Pseudomonas aeruginosa 01/30/18 14:00 Wound Culture - Final Right Foot Pseudomonas aeruginosa Enterobacter cloacae complex Enterococcus species 01/30/18 14:00 Anaerobic Culture - Preliminary Right Foot At this time, no anaerobic growth is present. The culture will be finalized after 5 days of incubation. Exam - Constitutional Vitals: Temp Pulse Resp BP Pulse Ox 97.5 F L 66 16 172/92 98 02/05/18 07:33 02/05/18 07:33 02/05/18 07:33 02/05/18 07:33 02/05/18 07:33 General appearance: cooperative, no acute distress, obese, no febrile - Head Head exam: Present: atraumatic, normocephalic - Respiratory Respiratory exam: Present: CTAB. Absent: decreased breath sounds, respiratory distress, stridor, wheezes - Cardiovascular Cardiovascular exam: Present: RRR. Absent: irregular rhythm, systolic murmur, tachycardia - GI/Abdominal GI/Abdominal exam: Present: normal bowel sounds, soft. Absent: tenderness - Extremities Exam Additional comments: right wound vac in place, no drainage seen - VTE Documentation of Mechanical Device: Intermittent pneumatic compression device Consult Discharge Plan - Plan Referrals: [facility] [place],Matteo Velez MD [Primary Care Provider] - - Attending Attestation I examined this patient and my medical decision-making was reviewed with the Resident Physician. I agree with the documented findings, disposition and treatment plan as described except to the extent set forth below.
--- NOTE | 2018-02-05 12:06 | Podiatry Progress Note ---
Date of Encounter: 02/05/18 Time of Encounter: 11:15 - Assessment and Plan (1) Cellulitis of right lower extremity Current Visit: No Status: Acute (2) Non-healing ulcer Current Visit: No Status: Acute Assessment: Wound vac intact to right foot with 25 ml of serosanguineous drainage observed to canister. Wound vac changed yesterday and healing uneventfully. WBC: 9.2 temp: 97.7 F Microbiology 01/30/18 14:00 Right Foot Surgical Biopsy Culture - Final Enterobacter cloacae complex Pseudomonas aeruginosa 01/30/18 14:00 Right Foot Wound Culture - Final Pseudomonas aeruginosa Enterobacter cloacae complex Enterococcus species Plan: Patient will require wound vac post discharge. Wound VAC to be changed every Saturday. Prep all surrounding skin with allkare skin barrier prep pads, apply drape, apply Adaptic to the graft jacket prior to application of small simpalce wound VAC sponge, connect to 150 mmhg medium, Rise: 2 minutes , Fall: 10 minutes. Remain non weight bearing to the E. hospitality services manager coordinating ECF placement. Awaiting prior auth at [place]. Patient okay to be discharged one approved at [place]. Antibiotics per Infectious Disease. Follow up with Dr. Walker in wound care one week after discharge from hospital. 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 Walker on 01/30/18. Patient denies any pain, wound vac intact to right foot. Patient states she is feeling good. Patient denies fever, chills , calf pain or flu like symptoms. Patient is awaiting prior auth for [facility]. Objective - Vital Signs Vital Signs: Vital Signs Temp Pulse Resp BP Pulse Ox 02/05/18 11:09 97.5 F L 67 16 140/76 99 02/05/18 07:33 97.5 F L 66 16 172/92 98 02/05/18 02:57 97.6 F 75 16 175/87 97 02/04/18 22:49 98.0 F 78 16 175/82 96 02/04/18 18:37 97.9 F 65 16 171/81 98 02/04/18 16:26 97.7 F 71 17 174/76 98 Intake and Output 02/04/18 02/05/18 02/05/18 23:59 07:59 15:59 Intake Total 340 / 340 460 / 460 240 / 240 Output Total 60 / 60 0 / 0 300 / 300 Balance 280 / 280 460 / 460 -60 / -60 Intake: IV Fluids 100 / 100 100 / 100 Zosyn 3.375 GM In 0.9 % Sodium 100 / 100 100 / 100 Chloride (Mini-Bag +) 100 ML @ 25 mls/hr IVPB Q8HR [facility] Rx#: [id number] Oral 240 / 240 360 / 360 240 / 240 Output: Urine 0 / 0 300 / 300 Wound Drainage 60 / 60 Right Heel 60 / 60 Other: Meal Dinner Breakfast Percent of Meal Consumed 50% 100% Weight 136 kg Blood Glucose* 232 251 278 Patient Weight 02/05/18 23:59 Weight 136 kg - Exam Exam: 02/04/18:General appearance: alert awake oriented X 3. Calm and pleasant, no acute distress.. Vascular: Right: Pedal pulses palpable, No evidence of cyanosis, pallor or rubor , Edema graded at 1+/4, Skin Temperature warm, No calf pain with manual compression. capillary refill time is immediate to digits. Postop Exam: S/P Full thickness ulceration to the plantar aspect of the right heel measuring 7 cm in length x 5 cm in width, graft jacket in place to wound bed with laureano. Ulcer irrigated with saline, Adaptic applied to graft jacket with small simplace wound vac sponge. 60 mls of serosanguineous drainage observed to canister. No periwound erythema, no odor, no pus, no streaking, no fluctuance. 02/05/18: General appearance: alert awake oriented X 3. Calm and pleasant, no acute distress.. Vascular: Right: Pedal pulses palpable, No evidence of cyanosis, pallor or rubor , Edema graded at 1+/4, Skin Temperature warm, No calf pain with manual compression. capillary refill time is immediate to digits. Postop Exam: S/P small black simplace wound vac sponge intact to right foot, no drainage observed to canister. No periwound erythema, no odor, no pus, no streaking, no fluctuance. - Lab Result Diagrams: 02/05/18 06:40 02/05/18 06:40 Labs: Abnormal lab results RBC 3.58 M/mcL (3.82-4.97) L 02/05/18 06:40 Hgb 9.0 g/dL (11.5-15.4) L 02/05/18 06:40 Hct 30.3 % (35.3-44.9) L 02/05/18 06:40 MCH 25.1 pg (28.0-33.3) L 02/05/18 06:40 MCHC 29.7 g/dL (31.6-35.5) L 02/05/18 06:40 RDW 16.3 % (11.5-14.5) H 02/05/18 06:40 Reticulocyte # 0.04 M/mcL (0.05-0.10) L 02/01/18 03:50 ESR 126 mm/hr (0-15) H 01/29/18 13:51 Percent Retic 1.3 % (1.6-2.8) L 02/01/18 03:50 Retic Hgb Equivalent 26.5 pg (28.61-36.33) L 02/01/18 03:50 PT 13.4 Seconds (9.4-12.1) H 01/29/18 13:51 Sodium 134 mEq/L (136-145) L 02/05/18 06:40 Carbon Dioxide 21 mEq/L (23-29) L 02/05/18 06:40 BUN 23 mg/dL (6-20) H 02/05/18 06:40 Creatinine 1.38 mg/dL (0.60-1.20) H 02/05/18 06:40 Est GFR ( Amer) 48 (> 60) L 02/05/18 06:40 Est GFR (Non-Af Amer) 40 (> 60) L 02/05/18 06:40 Glucose 249 mg/dL (70-105) H 02/05/18 06:40 POC Glucose 232 mg/dL (70-99) H 02/04/18 19:50 Hemoglobin A1c 10.3 % (-5.6) H 01/29/18 13:51 Transferrin 178 mg/dL (203-362) L 02/01/18 03:50 Ferritin 186 ng/mL (10-120) H 02/01/18 03:50 AST 11 Units/L (13-39) L 02/01/18 03:50 Alkaline Phosphatase 124 Units/L (34-104) H 02/01/18 03:50 C-Reactive Protein 22 mg/L (Less than 10) H 02/04/18 06:01 Albumin 2.6 g/dL (3.5-5.7) L 02/01/18 03:50 Globulin 4.1 g/dL (2.4-3.5) H 02/01/18 03:50 Albumin/Globulin Ratio 0.6 (1.1-2.2) L 02/01/18 03:50 HDL Cholesterol 31 mg/dL (40-59) L 01/30/18 04:00 Microbiology, Last 48 Hours 01/30/18 14:00 Anaerobic Culture - Final Right Foot No anaerobes were recovered. 01/29/18 14:52 Blood Culture - Final Peripheral Venipuncture No growth. Final report. 01/29/18 14:53 Blood Culture - Final Peripheral Venipuncture No growth. Final report. 01/30/18 14:00 Surgical Biopsy Culture - Final Right Foot Enterobacter cloacae complex Pseudomonas aeruginosa - VTE Documentation of Mechanical Device: Intermittent pneumatic compression device Consult Discharge Plan - Plan Referrals: [facility],Matteo Velez MD [Primary Care Provider] -
--- NOTE | 2018-02-05 15:38 | Internal Med Progress Note ---
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 Walker Blood and anaerobic cultures negative so far Wound VAC dressing change to yesterday Continue dressing changes per Dr. Walker's recommendations Preliminary culture results show gram-negative rods pseudomonas and enterococcus species (S) to Zosyn, continue ID seeing in consultation; appreciate recommendations Discharged to ECF once okay with with infectious disease and Dr. Walker Has received 1 week of Zosyn and will need 6 total weeks of ABX at discharge D/W infectious disease regarding changing patient from Zosyn to Levaquin every 24 hours 750 mg and ampicillin continuous infusion at 5 mg a day Nurse navigator following Consider d/c tomorrow if ABX set-up Qualifiers: Non-pressure ulcer stage: with necrosis of bone Qualified Code(s): L97.514 - Non-pressure chronic ulcer of other part of right foot with necrosis of bone (2) Chronic osteomyelitis Current Visit: No Status: Chronic Assessment and plan: see above (3) Cellulitis of right lower extremity Current Visit: Yes Status: Acute Assessment and plan: See above (4) Type 2 diabetes mellitus Current Visit: No Status: Chronic Assessment and plan: Hyperglycemic with FSBG or than 200s this afternoon Increase dose of basal insulin, continue high sliding scale insulin coverage continue to monitor Qualifiers: Diabetes mellitus retirement insulin use: with organisational psychologist use Diabetes mellitus complication status: with circulatory complication Diabetes mellitus complication detail: with other circulatory complications Qualified Code(s): E11.59 - Type 2 diabetes mellitus with other circulatory complications; Z79.4 - laborer landscape (current) use of insulin (5) Hyponatremia Current Visit: No Status: Chronic Assessment and plan: Continues to be stable, 02/05/18,continue to monitor (6) Peripheral neuropathy Current Visit: No Status: Acute Assessment and plan: History of peripheral neuropathy Denies any extremity pain at this time Continue Neurontin Qualifiers: Peripheral neuropathy type: polyneuropathy, unspecified Qualified Code(s): G62.9 - Polyneuropathy, unspecified (7) Hyperlipidemia Current Visit: No Status: Chronic Assessment and plan: statin Qualifiers: Hyperlipidemia type: mixed hyperlipidemia Qualified Code(s): E78.2 - Mixed hyperlipidemia (8) Tobacco abuse Current Visit: No Status: Acute Assessment and plan: Discussed tobacco cessation and options for quitting (9) CKD (chronic kidney disease) stage 3, GFR 30-59 ml/min Current Visit: No Status: Chronic Assessment and plan: Creatinine stable and at baseline Today's serum CR 1.38, 02/05/18 daily labs to monitor renal function Monitor intake and output daily weights Avoid nephrotoxins (10) Hypertension Current Visit: No Status: Chronic Assessment and plan: H/O HTN, BP currently 140/76. Mildly elevated this morning but has improved after receiving morning anti-HTN medications continue home dose of blood pressure medications, adjust as necessary time continue to closely monitor Continue hydralazine PRN Qualifiers: Hypertension type: essential hypertension Qualified Code(s): I10 - Essential (primary) hypertension (11) Anemia Current Visit: Yes Status: Acute Assessment and plan: 2/2 chronic Rt diabetic foot ulcer Continues to be stable today, 02/05/18 continue with oral iron continue to monitor Qualifiers: Anemia type: unspecified type Qualified Code(s): D64.9 - Anemia, unspecified (12) DVT prophylaxis Current Visit: No Status: Acute Assessment and plan: SCDs for DVT prophylaxis, continue - Time Spent With Patient Total time spent is greater than 50% in coordination of care (as documented) at patient's floor/unit and/or counseling patient: - Subjective Interval history: Patient seen and examined at bedside today, no acute changes overnight. Denies any pain or discomfort of Rt foot. Patient states that she is ready for discharge. Denies any fever, chills. - Constitutional Vitals: Temp Pulse Resp BP Pulse Ox 97.5 F L 67 16 140/76 99 02/05/18 11:09 02/05/18 11:09 02/05/18 11:09 02/05/18 11:09 02/05/18 11:09 General appearance: Present: A&O X 3, morbidly obese, no acute distress - Head Head exam: Present: atraumatic, normocephalic - Eye Eye exam: Present: EOMI, PERRL, conjuntiva pink, sclera anicteric Pupils: Present: PERRL - Neck Neck exam general surgery: Present: supple, trachea midline. Absent: lymphadenopathy - Respiratory Respiratory exam: Present: CTAB. Absent: accessory muscle use, rales, rhonchi, wheezes - Cardiovascular Cardiovascular exam: Present: RRR, +S1, +S2. Absent: diastolic murmur, gallop, rubs, systolic murmur - GI/Abdominal GI/Abdominal exam: Present: normal bowel sounds, soft, no peritoneal signs. Absent: distended, tenderness - Extremities Exam Extremities exam: Present: warm, radial pulses palpable and symmetrical. Absent : calf tenderness, cyanotic, pedal edema Additional comments: Wound VAC in place on foot plantar aspect, no drainage noted - Neurological Exam Neurological exam: Present: alert, CN II-XII intact, oriented X3, no focal deficits, strengths equal and symetr throughout. Absent: pronater drift, facial droop, speech deficit - Skin Skin exam: Present: dry, intact Internal Medicine: Result - Labs CBC & Chem 7: 02/05/18 06:40 02/05/18 06:40 Labs: Short CBC 02/05/18 Range/Units 06:40 WBC 7.4 (4.3-11.1) K/mcL Hgb 9.0 L (11.5-15.4) g/dL Hct 30.3 L (35.3-44.9) % Plt Count 345 (140-400) K/mcL Neutrophils # 5.0 (1.6-8.9) K/mcL BMP 02/05/18 06:40 Sodium 134 L Potassium 4.4 Chloride 105 Carbon Dioxide 21 L BUN 23 H Creatinine 1.38 H Glucose 249 H Calcium 8.7 - ABG Interpretation ABG results: PT/INR, D-dimer PT 13.4 Seconds (9.4-12.1) H 01/29/18 13:51 - VTE Documentation of Mechanical Device: Intermittent pneumatic compression device Consult Discharge Plan - Plan Referrals: [facility] – [place],Matteo Velez MD [Primary Care Provider] -
[2018-02-06 05:09] LABS: Basophils % 0.5 %; Eosinophils # 0.3 K/mcL (0.0-0.6); Eosinophils % 3.6 %; Hemoglobin 9.3 g/dL (11.5-15.4); Immature Granulocytes % 0.5 % (0-4); Lymphocytes # 1.4 K/mcL (0.6-4.6); Lymphocytes % 17.3 %; Mean Corpuscular Volume 86.6 fL (83.0-100.0); Mean Platelet Volume 9.8 fL (9.4-12.4); Monocytes # 0.5 K/mcL (0.0-1.3); Neutrophils # 5.8 K/mcL (1.6-8.9); Platelet Count 325 K/mcL (140-400); Red Blood Count 3.58 M/mcL (3.82-4.97); Red Cell Distribution Width 16.1 % (11.5-14.5); Segmented Neutrophils % 72.1 %
[2018-02-06 05:26] LABS: Calcium 8.6 mg/dL (8.6-10.3); Potassium 4.3 mEq/L (3.5-5.1)
[2018-02-06] MEDS: Magnesium Oxide 400 MG TABLET PO SCH (08:37)
[2018-02-06] MEDS: Sennosides 8.6 MG TABLET PO SCH (08:37)
[2018-02-06] MEDS: Famotidine 20 MG TABLET PO SCH ×2 (08:37→20:25)
[2018-02-06] MEDS: amLODIPine 5 MG TABLET PO SCH (08:38)
[2018-02-06] MEDS: Gabapentin 300 MG CAPSULE PO SCH ×2 (08:38→20:25)
[2018-02-06] MEDS: Insulin LISPRO 300 UNITS/3 ML VIAL SQ SCH ×4 (08:39→20:25)
[2018-02-06] MEDS: Insulin DETEMIR 100 UNIT/ML X5UNITS SQ SCH (08:39)
[2018-02-06] MEDS: Piperacillin/Tazobactam 3.375 GM in 0.9 % Sodium Chloride Mini Bag 100 ML IVPB SCH ×3 (08:40→23:00)
--- NOTE | 2018-02-06 09:56 | Infectious Disease Progress No ---
Date of Encounter: 02/06/18 Time of Encounter: 09:30 - Assessment and Plan (1) Chronic ulcer of right foot Current Visit: Yes Status: Chronic Patient has been dealing with right foot ulcers for at least 5 years s/p I&D with ostectomy and wound vac placement on 01/30 Podiatry following, wound care and activity restrictions per primary secondary to uncontrolled diabetes Qualifiers: Non-pressure ulcer stage: with necrosis of bone Qualified Code(s): L97.514 - Non-pressure chronic ulcer of other part of right foot with necrosis of bone (2) Chronic osteomyelitis Current Visit: No Status: Chronic Secondary to chronic diabetic foot ulcer s/p I&D with debridement, ostectomy, and wound vac placement by podiatry on 01/30 Wound cultures obtained intra-operatively growing sutton-sensitive Pseudomonas, Enterobacter Colacae, and Enterococcus species Blood and anaerobic cultures negative so far Continue Zosyn for now Once patient is ready for discharge, recommend discharging with Levaquin q24 750 mg and Ampicillin continuous infusion at 12 gm a day for ease of dosing If ECF unable to accept her due to continuous infusion, may substitute with q6 Ampicillin or Vancomycin daily or BID She has already received 1 week of Zosyn and will need 6 weeks total of antibiotics, anticipated stop date of March 13 Will speak with pharmacist about these options ESR initially elevated at 126, CRP 22 Patient will need to have weekly CBC, BMP, ESR, CRP and Vanc trough if Vancomycin is initiated; goal vanc trough of 10-15 (3) Cellulitis of left lower extremity Current Visit: Yes Status: Acute Patient did not complete outpatient Doxycycline Management with IV antibiotics as above Blood cultures remain negative (4) Uncontrolled diabetes mellitus Current Visit: Yes Status: Acute Qualifiers: Diabetes mellitus type: type 2 Diabetes mellitus ad terminal makeup operator insulin use: with chcf use Diabetes mellitus complication status: with unspecified complications Qualified Code(s): E11.8 - Type 2 diabetes mellitus with unspecified complications; E11.65 - Type 2 diabetes mellitus with hyperglycemia ; Z79.4 - terminal clerk (current) use of insulin (5) Peripheral neuropathy Current Visit: No Status: Acute Qualifiers: Peripheral neuropathy type: polyneuropathy, unspecified Qualified Code(s): G62.9 - Polyneuropathy, unspecified (6) CKD (chronic kidney disease) stage 3, GFR 30-59 ml/min Current Visit: No Status: Chronic (7) Hypertension Current Visit: No Status: Chronic Qualifiers: Hypertension type: essential hypertension Qualified Code(s): I10 - Essential (primary) hypertension (8) Peripheral arterial disease Current Visit: No Status: Acute - Subjective Interval history: Pt seen and examined. She continues to have no complaints and states she feels no pain in her legs. Denies any breathing issues, nausea, vomiting, chest pain, fever, chills, diarrhea. Infect Dis PN-Objective Data - Labs CBC & Chem 7: 02/07/18 05:22 02/07/18 05:22 Labs: Laboratory Results - last 24 hr 02/05/18 02/05/18 02/05/18 07:31 11:41 16:33 WBC RBC Hgb Hct MCV MCH MCHC RDW Plt Count MPV Immature Gran % Seg Neutrophils % Lymphocytes % Monocytes % Eosinophils % Basophils % Neutrophils # Lymphocytes # Monocytes # Eosinophils # Basophils # Sodium Potassium Chloride Carbon Dioxide BUN Creatinine Est GFR ( Amer) Est GFR (Non-Af Amer) BUN/Creatinine Ratio Glucose POC Glucose 251 H 278 H 242 H Calculated Osmolality Calcium 02/05/18 02/06/18 02/06/18 19:56 04:44 04:45 WBC 8.1 RBC 3.58 L Hgb 9.3 L Hct 31.0 L MCV 86.6 MCH 26.0 L MCHC 30.0 L RDW 16.1 H Plt Count 325 MPV 9.8 Immature Gran % 0.5 Seg Neutrophils % 72.1 Lymphocytes % 17.3 Monocytes % 6.0 Eosinophils % 3.6 Basophils % 0.5 Neutrophils # 5.8 Lymphocytes # 1.4 Monocytes # 0.5 Eosinophils # 0.3 Basophils # 0.0 Sodium 134 L Potassium 4.3 Chloride 106 Carbon Dioxide 20 L BUN 25 H Creatinine 1.42 H Est GFR ( Amer) 47 L Est GFR (Non-Af Amer) 39 L BUN/Creatinine Ratio 18 Glucose 290 H POC Glucose 257 H Calculated Osmolality 293 Calcium 8.6 Cultures: Cultures 01/30/18 14:00 Anaerobic Culture - Final Right Foot No anaerobes were recovered. 01/29/18 14:52 Blood Culture - Final Peripheral Venipuncture No growth. Final report. 01/29/18 14:53 Blood Culture - Final Peripheral Venipuncture No growth. Final report. 01/30/18 14:00 Surgical Biopsy Culture - Final Right Foot Enterobacter cloacae complex Pseudomonas aeruginosa 01/30/18 14:00 Wound Culture - Final Right Foot Pseudomonas aeruginosa Enterobacter cloacae complex Enterococcus species Exam - Constitutional Vitals: Temp Pulse Resp BP Pulse Ox 98.0 F 70 15 155/78 96 02/06/18 08:23 02/06/18 08:23 02/06/18 08:23 02/06/18 08:23 02/06/18 08:23 General appearance: cooperative, no acute distress, obese, no febrile - Head Head exam: Present: atraumatic, normocephalic - Respiratory Respiratory exam: Present: CTAB. Absent: decreased breath sounds, respiratory distress, wheezes, tachypnea - Cardiovascular Cardiovascular exam: Present: RRR. Absent: irregular rhythm, systolic murmur, tachycardia - GI/Abdominal GI/Abdominal exam: Present: normal bowel sounds, soft. Absent: tenderness - Extremities Exam Extremities exam: Present: pedal edema Additional comments: right foot wound vac in place draining minimal amount of sanguinous fluid - VTE Documentation of Mechanical Device: Intermittent pneumatic compression device Consult Discharge Plan - Plan Instructions: Cellulitis (DC), Diabetes Mellitus Type 2 in Adults (DC) Referrals: Matteo Love MD [Primary Care Provider] - Prescriptions: Ampicillin 3 gm IV Q6HR 35 Days #105 vial amLODIPine [Norvasc] 10 mg PO DAILY 30 Days #30 tablet levoFLOXacin [Levaquin] 750 mg IV DAILY 35 Days #35 tablet - Attending Attestation I examined this patient and my medical decision-making was reviewed with the Resident Physician. I agree with the documented findings, disposition and treatment plan as described except to the extent set forth below.
--- NOTE | 2018-02-06 10:01 | Podiatry Progress Note ---
Date of Encounter: 02/06/18 Time of Encounter: 08:40 - Assessment and Plan (1) Cellulitis of right lower extremity Current Visit: Yes Status: Acute (2) Non-healing ulcer Current Visit: No Status: Acute Assessment: Wound vac intact to right foot with 25 ml of serosanguineous drainage observed to canister. Wound vac changed yesterday and healing uneventfully. WBC: 8.1 Microbiology 01/30/18 14:00 Right Foot Surgical Biopsy Culture - Final Enterobacter cloacae complex Pseudomonas aeruginosa 01/30/18 14:00 Right Foot Wound Culture - Final Pseudomonas aeruginosa Enterobacter cloacae complex Enterococcus species Plan: Patient will require wound vac post discharge. Wound VAC to be changed every Saturday. Prep all surrounding skin with allkare skin barrier prep pads, apply drape, apply Adaptic to the graft jacket prior to application of small simpalce wound VAC sponge, connect to 150 mmhg medium, Rise: 2 minutes , Fall: 10 minutes. Remain non weight bearing to the E. environmental services assistant coordinating ECF placement. Awaiting prior auth at [facility]. Patient okay to be discharged once approved at [facility]. Antibiotics per Infectious Disease. Follow up with Dr. Walker in wound care one week after discharge from hospital. Qualifiers: Non-pressure ulcer stage: unspecified non-pressure ulcer stage Qualified Code(s): L98.499 - Non-pressure chronic ulcer of skin of other sites with unspecified severity (3) Type 2 diabetes mellitus Current Visit: No Status: Chronic Qualifiers: Diabetes mellitus supervisor long goods insulin use: with fpc use Diabetes mellitus complication status: with circulatory complication Diabetes mellitus complication detail: with other circulatory complications Qualified Code(s): E11.59 - Type 2 diabetes mellitus with other circulatory complications; Z79.4 - long-term (current) use of insulin (4) Peripheral neuropathy Current Visit: No Status: Acute Qualifiers: Peripheral neuropathy type: polyneuropathy, unspecified Qualified Code(s): G62.9 - Polyneuropathy, unspecified (5) CKD (chronic kidney disease) stage 3, GFR 30-59 ml/min Current Visit: No Status: Chronic Subjective Principal diagnosis: Foot ulcer with osteomyelitis right calcaneus Interval history: Patient is sitting up in bed s/p incision and drainage and debridement multiple planes right foot, calcaneal ostectomy and application of graft jacket with wound VAC by Dr. Walker on 01/30/18. Patient denies any pain, wound vac intact to right foot. Patient states she is feeling good. Patient denies fever, chills , calf pain or flu like symptoms. Patient is awaiting prior auth for [facility]. Patient is due for a wound vac change today. Objective - Vital Signs Vital Signs: Vital Signs Temp Pulse Resp BP Pulse Ox 02/06/18 08:23 98.0 F 70 15 155/78 96 02/06/18 02:59 98.1 F 81 16 176/80 96 02/05/18 23:12 97.8 F 64 16 166/69 98 02/05/18 19:10 98.0 F 70 18 192/65 96 02/05/18 16:03 98.1 F 67 18 170/73 97 02/05/18 11:09 97.5 F L 67 16 140/76 99 Intake and Output 02/05/18 02/06/18 02/06/18 23:59 07:59 15:59 Intake Total 100 / 100 100 / 100 Output Total 200 / 200 400 / 400 Balance -100 / -100 -400 / -400 100 / 100 Intake: IV Fluids 100 / 100 100 / 100 Zosyn 3.375 GM In 0.9 % Sodium 100 / 100 100 / 100 Chloride (Mini-Bag +) 100 ML @ 25 mls/hr IVPB Q8HR [facility] Rx#: [id number] Output: Urine 200 / 200 400 / 400 Other: # Voids 1 2 Weight 136 kg Blood Glucose* 257 236 Patient Weight 02/06/18 23:59 Weight 136 kg - Exam Exam: General appearance: alert awake oriented X 3. Calm and pleasant, no acute distress.. Vascular: Right: Pedal pulses palpable, No evidence of cyanosis, pallor or rubor , Edema graded at 1+/4, Skin Temperature warm, No calf pain with manual compression. capillary refill time is immediate to digits. Postop Exam: S/P small black simplace wound vac sponge intact to right foot, 20 mls of serosanguineous drainage observed to canister. No periwound erythema, no odor, no pus, no streaking, no fluctuance. - Lab Result Diagrams: 02/06/18 04:45 02/06/18 04:44 Labs: Abnormal lab results RBC 3.58 M/mcL (3.82-4.97) L 02/06/18 04:45 Hgb 9.3 g/dL (11.5-15.4) L 02/06/18 04:45 Hct 31.0 % (35.3-44.9) L 02/06/18 04:45 MCH 26.0 pg (28.0-33.3) L 02/06/18 04:45 MCHC 30.0 g/dL (31.6-35.5) L 02/06/18 04:45 RDW 16.1 % (11.5-14.5) H 02/06/18 04:45 Reticulocyte # 0.04 M/mcL (0.05-0.10) L 02/01/18 03:50 ESR 126 mm/hr (0-15) H 01/29/18 13:51 Percent Retic 1.3 % (1.6-2.8) L 02/01/18 03:50 Retic Hgb Equivalent 26.5 pg (28.61-36.33) L 02/01/18 03:50 PT 13.4 Seconds (9.4-12.1) H 01/29/18 13:51 Sodium 134 mEq/L (136-145) L 02/06/18 04:44 Carbon Dioxide 20 mEq/L (23-29) L 02/06/18 04:44 BUN 25 mg/dL (6-20) H 02/06/18 04:44 Creatinine 1.42 mg/dL (0.60-1.20) H 02/06/18 04:44 Est GFR ( Amer) 47 (> 60) L 02/06/18 04:44 Est GFR (Non-Af Amer) 39 (> 60) L 02/06/18 04:44 Glucose 290 mg/dL (70-105) H 02/06/18 04:44 POC Glucose 257 mg/dL (70-99) H 02/05/18 19:56 Hemoglobin A1c 10.3 % (-5.6) H 01/29/18 13:51 Transferrin 178 mg/dL (203-362) L 02/01/18 03:50 Ferritin 186 ng/mL (10-120) H 02/01/18 03:50 AST 11 Units/L (13-39) L 02/01/18 03:50 Alkaline Phosphatase 124 Units/L (34-104) H 02/01/18 03:50 C-Reactive Protein 22 mg/L (Less than 10) H 02/04/18 06:01 Albumin 2.6 g/dL (3.5-5.7) L 02/01/18 03:50 Globulin 4.1 g/dL (2.4-3.5) H 02/01/18 03:50 Albumin/Globulin Ratio 0.6 (1.1-2.2) L 02/01/18 03:50 HDL Cholesterol 31 mg/dL (40-59) L 01/30/18 04:00 Microbiology, Last 48 Hours 01/30/18 14:00 Anaerobic Culture - Final Right Foot No anaerobes were recovered. - VTE Documentation of Mechanical Device: Intermittent pneumatic compression device Consult Discharge Plan - Plan Referrals: Matteo Love MD [Primary Care Provider] -
[2018-02-06] MEDS ORDERED: Lidocaine -MPF 1% 5 ML AMPUL INFILT ONE (12:44)
--- NOTE | 2018-02-06 14:05 | Internal Med Progress Note ---
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 Walker Blood and anaerobic cultures negative so far Wound VAC dressing change to yesterday; we will discharge with wound VAC, dressings to be changed Saturday, , Saturday at [facility]. Patient will require wound vac post discharge. Wound VAC to be changed every Saturday. Prep all surrounding skin with allkare skin barrier prep pads, apply drape, apply Adaptic to the graft jacket prior to application of small simpalce wound VAC sponge, connect to 150 mmhg medium, Rise: 2 minutes , Fall: 10 minutes. Patient is to remain nonweightbearing to [facility] Continue dressing changes per Dr. Walker's recommendations Preliminary culture results show gram-negative rods pseudomonas and enterococcus species (S) to Zosyn, continue while inpatient ID seeing in consultation; appreciate recommendations Plan is to discharge to [facility] pending approval. Patient on discharge and received 6 weeks of IV antibiotics during midline catheter Has received 1 week of Zosyn and will need 6 total weeks of ABX at discharge D/W infectious disease regarding changing patient from Zosyn to Levaquin every 24 hours 750 mg and ampicillin continuous infusion at 12 mg a day Nurse navigator following Consider d/c tomorrow if ABX set-up Qualifiers: Non-pressure ulcer stage: with necrosis of bone Qualified Code(s): L97.514 - Non-pressure chronic ulcer of other part of right foot with necrosis of bone (2) Chronic osteomyelitis Current Visit: No Status: Chronic Assessment and plan: see above 02/06/18 (3) Cellulitis of right lower extremity Current Visit: Yes Status: Acute Assessment and plan: See above 02/06/18 (4) Type 2 diabetes mellitus Current Visit: No Status: Chronic Assessment and plan: Hyperglycemic with FSBG in the low 200s this afternoon Continue basal insulin, continue high sliding scale insulin coverage continue to monitor Qualifiers: Diabetes mellitus 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 insulin 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: with 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 use Diabetes mellitus complication status: with circulatory complication Diabetes mellitus complication detail: with other circulatory complications Qualified Code(s): E11.59 - Type 2 diabetes mellitus with other circulatory complications; Z79.4 - detention (current) use of insulin (5) Hyponatremia Current Visit: No Status: Chronic Assessment and plan: Continues to be stable, 02/06/18,continue to monitor (6) Peripheral neuropathy Current Visit: No Status: Acute Assessment and plan: History of peripheral neuropathy Continues to deny extremity pain today Continue Neurontin Qualifiers: Peripheral neuropathy type: polyneuropathy, unspecified Qualified Code(s): G62.9 - Polyneuropathy, unspecified (7) Hyperlipidemia Current Visit: No Status: Chronic Assessment and plan: statin Qualifiers: Hyperlipidemia type: mixed hyperlipidemia Qualified Code(s): E78.2 - Mixed hyperlipidemia (8) Tobacco abuse Current Visit: No Status: Acute Assessment and plan: Discussed tobacco cessation and options for quitting (9) CKD (chronic kidney disease) stage 3, GFR 30-59 ml/min Current Visit: No Status: Chronic Assessment and plan: Creatinine stable and at baseline Today's serum CR 1.42, 02/06/18 daily labs to monitor renal function Monitor intake and output daily weights Avoid nephrotoxins (10) Hypertension Current Visit: No Status: Chronic Assessment and plan: H/O HTN, BP currently 167/82, improving today continue home dose of blood pressure medications, adjust as necessary time continue to closely monitor Continue hydralazine PRN Qualifiers: Hypertension type: essential hypertension Qualified Code(s): I10 - Essential (primary) hypertension (11) Anemia Current Visit: Yes Status: Acute Assessment and plan: 2/2 chronic Rt diabetic foot ulcer Continues to be stable today, 02/06/18 continue with oral iron continue to monitor Qualifiers: Anemia type: unspecified type Qualified Code(s): D64.9 - Anemia, unspecified (12) DVT prophylaxis Current Visit: No Status: Acute Assessment and plan: Continue, SCDs for DVT prophylaxis - Time Spent With Patient Total time spent is greater than 50% in coordination of care (as documented) at patient's floor/unit and/or counseling patient: 25 - 35 minutes - Subjective Interval history: Patient seen and examined at bedside today, no acute changes overnight. Patient states that she is ready for discharge. Denies any fever, chills. - Constitutional Vitals: Temp Pulse Resp BP Pulse Ox 98.0 F 74 14 167/82 97 02/06/18 12:00 02/06/18 12:00 02/06/18 12:00 02/06/18 12:00 02/06/18 12:00 General appearance: Present: A&O X 3, morbidly obese, no acute distress - Head Head exam: Present: atraumatic, normocephalic - Eye Eye exam: Present: PERRL, conjuntiva pink, sclera anicteric Pupils: Present: PERRL - Neck Neck exam general surgery: Present: supple, trachea midline. Absent: lymphadenopathy - Respiratory Respiratory exam: Present: CTAB. Absent: accessory muscle use, rales, rhonchi, wheezes - Cardiovascular Cardiovascular exam: Present: RRR, +S1, +S2. Absent: diastolic murmur, gallop, rubs, systolic murmur - GI/Abdominal GI/Abdominal exam: Present: normal bowel sounds, soft, no peritoneal signs. Absent: distended, tenderness - Extremities Exam Extremities exam: Present: warm, radial pulses palpable and symmetrical. Absent : calf tenderness, cyanotic, pedal edema Additional comments: Diabetic foot ulcer on plantar aspect of left foot. Wound VAC dressing in place. Able to assess wound bed - Neurological Exam Neurological exam: Present: CN II-XII intact, oriented X3, no focal deficits. Absent: pronater drift, facial droop, speech deficit - Skin Skin exam: Present: dry, intact Internal Medicine: Result - Labs CBC & Chem 7: 02/06/18 04:45 02/06/18 04:44 Labs: Short CBC 02/06/18 Range/Units 04:45 WBC 8.1 (4.3-11.1) K/mcL Hgb 9.3 L (11.5-15.4) g/dL Hct 31.0 L (35.3-44.9) % Plt Count 325 (140-400) K/mcL Neutrophils # 5.8 (1.6-8.9) K/mcL BMP 02/06/18 04:44 Sodium 134 L Potassium 4.3 Chloride 106 Carbon Dioxide 20 L BUN 25 H Creatinine 1.42 H Glucose 290 H Calcium 8.6 - ABG Interpretation ABG results: PT/INR, D-dimer PT 13.4 Seconds (9.4-12.1) H 01/29/18 13:51 - VTE Documentation of Mechanical Device: Intermittent pneumatic compression device Consult Discharge Plan - Plan Referrals: Matteo Love MD [Primary Care Provider] - 02/13/18 9:30 am (You will be seeing Ananya Casper CNP.)
[2018-02-07 05:42] LABS: Basophils % 0.2 %; Eosinophils # 0.3 K/mcL (0.0-0.6); Eosinophils % 3.2 %; Hematocrit 31.2 % (35.3-44.9); Hemoglobin 9.6 g/dL (11.5-15.4); Immature Granulocytes % 0.3 % (0-4); Lymphocytes # 1.2 K/mcL (0.6-4.6); Lymphocytes % 13.8 %; Mean Corpuscular HGB Conc 30.8 g/dL (31.6-35.5); Mean Corpuscular Hemoglobin 25.9 pg (28.0-33.3); Mean Corpuscular Volume 84.1 fL (83.0-100.0); Mean Platelet Volume 9.7 fL (9.4-12.4); Monocytes # 0.6 K/mcL (0.0-1.3); Monocytes % 6.4 %; Neutrophils # 6.7 K/mcL (1.6-8.9); Platelet Count 340 K/mcL (140-400); Red Blood Count 3.71 M/mcL (3.82-4.97); Red Cell Distribution Width 16.2 % (11.5-14.5); Segmented Neutrophils % 76.1 %
[2018-02-07 05:58] LABS: Calcium 8.7 mg/dL (8.6-10.3); Potassium 4.6 mEq/L (3.5-5.1)
[2018-02-07] MEDS: Gabapentin 300 MG CAPSULE PO SCH (08:24)
[2018-02-07] MEDS: amLODIPine 5 MG TABLET PO SCH (08:25)
[2018-02-07] MEDS: Sennosides 8.6 MG TABLET PO SCH (08:25)
[2018-02-07] MEDS: Magnesium Oxide 400 MG TABLET PO SCH (08:25)
[2018-02-07] MEDS: Famotidine 20 MG TABLET PO SCH (08:25)
[2018-02-07] MEDS: Insulin LISPRO 300 UNITS/3 ML VIAL SQ SCH ×2 (08:26→11:40)
[2018-02-07] MEDS: Piperacillin/Tazobactam 3.375 GM in 0.9 % Sodium Chloride Mini Bag 100 ML IVPB SCH (08:26)
[2018-02-07] MEDS: Insulin DETEMIR 100 UNIT/ML X5UNITS SQ SCH (08:26)
--- NOTE | 2018-02-07 09:02 | Infectious Disease Progress No ---
Date of Encounter: 02/07/18 Time of Encounter: 09:01 - Assessment and Plan (1) Chronic ulcer of right foot Current Visit: Yes Status: Chronic Patient has been dealing with right foot ulcers for at least 5 years s/p I&D with ostectomy and wound vac placement on 01/30 Podiatry following, wound care and activity restrictions per primary secondary to uncontrolled diabetes Qualifiers: Non-pressure ulcer stage: with necrosis of bone Qualified Code(s): L97.514 - Non-pressure chronic ulcer of other part of right foot with necrosis of bone (2) Chronic osteomyelitis Current Visit: No Status: Chronic Secondary to chronic diabetic foot ulcer s/p I&D with debridement, ostectomy, and wound vac placement by podiatry on 01/30 Wound cultures obtained intra-operatively growing sutton-sensitive Pseudomonas, Enterobacter Colacae, and Enterococcus species Blood and anaerobic cultures negative so far Continue Zosyn for now Once patient is ready for discharge, recommend discharging with Levaquin q24 750 mg and Ampicillin continuous infusion at 12 gm a day for ease of dosing If ECF unable to accept her due to continuous infusion, may substitute with q6 Ampicillin or Vancomycin daily or BID She has already received 1 week of Zosyn and will need 6 weeks total of antibiotics, anticipated stop date of March 13 Will speak with pharmacist about these options ESR initially elevated at 126, CRP 22 Patient will need to have weekly CBC, BMP, ESR, CRP and Vanc trough if Vancomycin is initiated; goal vanc trough of 10-15 (3) Cellulitis of left lower extremity Current Visit: Yes Status: Acute Patient did not complete outpatient Doxycycline Management with IV antibiotics as above Blood cultures remain negative (4) Uncontrolled diabetes mellitus Current Visit: Yes Status: Acute Qualifiers: Diabetes mellitus type: type 2 Diabetes mellitus ferry terminal agent insulin use: with usp use Diabetes mellitus complication status: with unspecified complications Qualified Code(s): E11.8 - Type 2 diabetes mellitus with unspecified complications; E11.65 - Type 2 diabetes mellitus with hyperglycemia ; Z79.4 - termination clerk (current) use of insulin (5) Peripheral neuropathy Current Visit: No Status: Acute Qualifiers: Peripheral neuropathy type: polyneuropathy, unspecified Qualified Code(s): G62.9 - Polyneuropathy, unspecified (6) CKD (chronic kidney disease) stage 3, GFR 30-59 ml/min Current Visit: No Status: Chronic (7) Hypertension Current Visit: No Status: Chronic Qualifiers: Hypertension type: essential hypertension Qualified Code(s): I10 - Essential (primary) hypertension (8) Peripheral arterial disease Current Visit: No Status: Acute - Subjective Interval history: Pt seen and examined. She has no complaints this morning and is eager to be discharged. Has no issues with chest pain, shortness of breath, fever, chills, nausea, vomiting or diarrhea. Infect Dis PN-Objective Data - Labs CBC & Chem 7: 02/07/18 05:22 02/07/18 05:22 Labs: Laboratory Results - last 24 hr 02/06/18 02/06/18 02/06/18 08:06 11:36 16:46 WBC RBC Hgb Hct MCV MCH MCHC RDW Plt Count MPV Immature Gran % Seg Neutrophils % Lymphocytes % Monocytes % Eosinophils % Basophils % Neutrophils # Lymphocytes # Monocytes # Eosinophils # Basophils # Sodium Potassium Chloride Carbon Dioxide BUN Creatinine Est GFR ( Amer) Est GFR (Non-Af Amer) BUN/Creatinine Ratio Glucose POC Glucose 236 H 215 H 257 H Calculated Osmolality Calcium 02/06/18 02/07/18 02/07/18 20:06 05:22 05:22 WBC 8.9 RBC 3.71 L Hgb 9.6 L Hct 31.2 L MCV 84.1 MCH 25.9 L MCHC 30.8 L RDW 16.2 H Plt Count 340 MPV 9.7 Immature Gran % 0.3 Seg Neutrophils % 76.1 Lymphocytes % 13.8 Monocytes % 6.4 Eosinophils % 3.2 Basophils % 0.2 Neutrophils # 6.7 Lymphocytes # 1.2 Monocytes # 0.6 Eosinophils # 0.3 Basophils # 0.0 Sodium 133 L Potassium 4.6 Chloride 105 Carbon Dioxide 22 L BUN 29 H Creatinine 1.37 H Est GFR ( Amer) 49 L Est GFR (Non-Af Amer) 40 L BUN/Creatinine Ratio 21 Glucose 261 H POC Glucose 281 H Calculated Osmolality 291 Calcium 8.7 Cultures: Cultures 01/30/18 14:00 Anaerobic Culture - Final Right Foot No anaerobes were recovered. 01/29/18 14:52 Blood Culture - Final Peripheral Venipuncture No growth. Final report. 01/29/18 14:53 Blood Culture - Final Peripheral Venipuncture No growth. Final report. 01/30/18 14:00 Surgical Biopsy Culture - Final Right Foot Enterobacter cloacae complex Pseudomonas aeruginosa 01/30/18 14:00 Wound Culture - Final Right Foot Pseudomonas aeruginosa Enterobacter cloacae complex Enterococcus species Exam - Constitutional Vitals: Temp Pulse Resp BP Pulse Ox 97.6 F 67 16 157/81 98 02/07/18 07:28 02/07/18 07:28 02/07/18 07:28 02/07/18 07:28 02/07/18 07:28 General appearance: cooperative, no acute distress, obese, no febrile - Head Head exam: Present: atraumatic, normocephalic - Respiratory Respiratory exam: Present: CTAB. Absent: chest wall tenderness, decreased breath sounds, respiratory distress, wheezes - Cardiovascular Cardiovascular exam: Present: RRR. Absent: irregular rhythm, systolic murmur, tachycardia - GI/Abdominal GI/Abdominal exam: Present: normal bowel sounds, soft. Absent: tenderness - Extremities Exam Extremities exam: Present: pedal edema Additional comments: wound vac in place on right foot, no drainage noted - VTE Documentation of Mechanical Device: Intermittent pneumatic compression device Consult Discharge Plan - Plan Instructions: Cellulitis (DC), Diabetes Mellitus Type 2 in Adults (DC) Referrals: Matteo leiva MD [Primary Care Provider] - Prescriptions: Ampicillin 3 gm IV Q6HR 35 Days #105 vial amLODIPine [Norvasc] 10 mg PO DAILY 30 Days #30 tablet levoFLOXacin [Levaquin] 750 mg IV DAILY 35 Days #35 tablet - Attending Attestation I examined this patient and my medical decision-making was reviewed with the Resident Physician. I agree with the documented findings, disposition and treatment plan as described except to the extent set forth below.
--- NOTE | 2018-02-07 10:09 | Internal Med Progress Note ---
Date of Encounter: 02/07/18 Time of Encounter: 10:07 - Assessment and plan (1) Chronic ulcer of right foot Current Visit: Yes Status: Chronic Assessment and plan: Chronic diabetic right foot ulcer with osteomyelitis Poorly controlled DM hgb A1c 10.3 s/p IND surgical debridement, ostectomy and wound VAC placement per Dr. Walker Blood and anaerobic cultures negative so far Wound VAC dressing change to yesterday; we will discharge with wound VAC, dressings to be changed Saturday, , Saturday [facility]. Patient will require wound vac post discharge. Wound VAC to be changed every Saturday. Prep all surrounding skin with allkare skin barrier prep pads, apply drape, apply Adaptic to the graft jacket prior to application of small simpalce wound VAC sponge, connect to 150 mmhg medium, Rise: 2 minutes , Fall: 10 minutes. Patient is to remain nonweightbearing to [facility] Continue dressing changes per Dr. Walker's recommendations Preliminary culture results show gram-negative rods pseudomonas and enterococcus species (S) to Zosyn, continue while inpatient ID seeing in consultation; appreciate recommendations Plan is to discharge to [facility]; approval pending Needs 6 weeks total of ABX therapy; D/C on Q6hr ampicillin for a total of 12 mg daily and daily Levaquin Nurse navigator following Consider d/c this afternoon pending approval and ABX set-up Qualifiers: Non-pressure ulcer stage: with necrosis of bone Qualified Code(s): L97.514 - Non-pressure chronic ulcer of other part of right foot with necrosis of bone (2) Chronic osteomyelitis Current Visit: No Status: Chronic Assessment and plan: see above 02/07/18 (3) Cellulitis of right lower extremity Current Visit: Yes Status: Acute Assessment and plan: See above 02/07/18 (4) Type 2 diabetes mellitus Current Visit: No Status: Chronic Assessment and plan: FSBG stable Continue basal insulin, continue high sliding scale insulin coverage continue to monitor Qualifiers: Diabetes mellitus termite helper insulin use: with prison use Diabetes mellitus complication status: with circulatory complication Diabetes mellitus complication detail: with other circulatory complications Qualified Code(s): E11.59 - Type 2 diabetes mellitus with other circulatory complications; Z79.4 - 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 (current) use of insulin (5) Hyponatremia Current Visit: No Status: Chronic Assessment and plan: Continues to be stable, 02/07/18,continue to monitor (6) Peripheral neuropathy Current Visit: No Status: Acute Assessment and plan: History of peripheral neuropathy Continues to deny extremity pain today Continue Neurontin Qualifiers: Peripheral neuropathy type: polyneuropathy, unspecified Qualified Code(s): G62.9 - Polyneuropathy, unspecified (7) Hyperlipidemia Current Visit: No Status: Chronic Assessment and plan: statin Qualifiers: Hyperlipidemia type: mixed hyperlipidemia Qualified Code(s): E78.2 - Mixed hyperlipidemia (8) Tobacco abuse Current Visit: No Status: Acute Assessment and plan: Discussed tobacco cessation and options for quitting, verbalizes understanding of the need to quit smoking (9) CKD (chronic kidney disease) stage 3, GFR 30-59 ml/min Current Visit: No Status: Chronic Assessment and plan: Creatinine stable and at baseline Today's serum CR 1.37, 02/07/18 continue daily labs to monitor renal function Monitor intake and output daily weights Avoid nephrotoxins (10) Hypertension Current Visit: No Status: Chronic Assessment and plan: H/O HTN, BP currently 157/81, stable continue home dose of blood pressure medications adjust as necessary time continue to closely monitor Continue hydralazine PRN Qualifiers: Hypertension type: essential hypertension Qualified Code(s): I10 - Essential (primary) hypertension (11) Anemia Current Visit: Yes Status: Acute Assessment and plan: 2/2 chronic Rt diabetic foot ulcer Continues to be stable today, 02/07/18-9.6 continue with oral iron continue to monitor Qualifiers: Anemia type: unspecified type Qualified Code(s): D64.9 - Anemia, unspecified - Time Spent With Patient Total time spent is greater than 50% in coordination of care (as documented) at patient's floor/unit and/or counseling patient: 25 - 35 minutes - Subjective Interval history: Patient seen and examined at bedside today, no acute changes overnight. Denies any fever, chills. Ready for discharge - Constitutional Vitals: Temp Pulse Resp BP Pulse Ox 97.6 F 67 16 157/81 98 02/07/18 07:28 02/07/18 07:28 02/07/18 07:28 02/07/18 07:28 02/07/18 07:28 General appearance: Present: A&O X 3, morbidly obese, no acute distress - Head Head exam: Present: atraumatic, normocephalic - Eye Eye exam: Present: PERRL, conjuntiva pink, sclera anicteric Pupils: Present: PERRL - Neck Neck exam general surgery: Present: supple, trachea midline. Absent: lymphadenopathy - Respiratory Respiratory exam: Present: CTAB. Absent: accessory muscle use, rales, rhonchi, wheezes - Cardiovascular Cardiovascular exam: Present: RRR, +S1, +S2. Absent: diastolic murmur, gallop, rubs, systolic murmur - GI/Abdominal GI/Abdominal exam: Present: normal bowel sounds, soft, no peritoneal signs. Absent: distended, tenderness - Extremities Exam Extremities exam: Present: warm, radial pulses palpable and symmetrical. Absent : calf tenderness, cyanotic, pedal edema Additional comments: wound vac to left foot, MARC to assess wound bed - Neurological Exam Neurological exam: Present: alert, CN II-XII intact, oriented X3, no focal deficits. Absent: pronater drift, facial droop, speech deficit - Skin Skin exam: Present: dry, intact Internal Medicine: Result - Labs CBC & Chem 7: 02/07/18 05:22 02/07/18 05:22 Labs: Short CBC 02/07/18 Range/Units 05:22 WBC 8.9 (4.3-11.1) K/mcL Hgb 9.6 L (11.5-15.4) g/dL Hct 31.2 L (35.3-44.9) % Plt Count 340 (140-400) K/mcL Neutrophils # 6.7 (1.6-8.9) K/mcL BMP 02/07/18 05:22 Sodium 133 L Potassium 4.6 Chloride 105 Carbon Dioxide 22 L BUN 29 H Creatinine 1.37 H Glucose 261 H Calcium 8.7 - ABG Interpretation ABG results: PT/INR, D-dimer PT 13.4 Seconds (9.4-12.1) H 01/29/18 13:51 - VTE Documentation of Mechanical Device: Intermittent pneumatic compression device Consult Discharge Plan - Plan Referrals: Kate,Matteo Velez MD [Primary Care Provider] -
[2018-02-07 11:18] VITALS: BP 156/78
--- NOTE | 2018-02-07 11:40 | Discharge Summary ---
Date of Encounter: 02/07/18 Time of Encounter: 11:30 - Discharge Diagnosis (1) Cellulitis Status: Acute Qualifiers: Site of cellulitis: extremity Site of cellulitis of extremity: lower extremity Laterality: left Qualified Code(s): L03.116 - Cellulitis of left lower limb (2) Chronic osteomyelitis involving lower leg Status: Acute Comments: Assessment: Wound vac intact to right foot with 25 ml of serosanguineous drainage observed to canister. Wound vac changed yesterday and healing uneventfully. Microbiology 01/30/18 14:00 Right Foot Surgical Biopsy Culture - Final Enterobacter cloacae complex Pseudomonas aeruginosa 01/30/18 14:00 Right Foot Wound Culture - Final Pseudomonas aeruginosa Enterobacter cloacae complex Enterococcus species Plan: Patient will require wound vac post discharge. Wound VAC to be changed every Saturday. Prep all surrounding skin with allkare skin barrier prep pads, apply drape, apply Adaptic to the graft jacket prior to application of small simpalce wound VAC sponge, connect to 150 mmhg medium, Rise: 2 minutes , Fall: 10 minutes. orders have been placed to computer Remain non weight bearing to the E. ECF placement to [facility] Antibiotics per Infectious Disease. Follow up with Dr. Walker in wound care center one week after discharge from hospital. Qualifiers: Laterality: right Qualified Code(s): M86.661 - Other chronic osteomyelitis , right tibia and fibula (3) Diabetes Status: Acute Comments: Continue with strict glucose control to limit complications and promote healing Qualifiers: Diabetes mellitus type: type 2 Diabetes mellitus pneumatic drum sander insulin use: unspecified penitentiary insulin use status Diabetes mellitus complication status : with circulatory complication Diabetes mellitus complication detail: with other circulatory complications Qualified Code(s): E11.59 - Type 2 diabetes mellitus with other circulatory complications Labs on day of discharge: Labs from last 24 hours 02/07/18 02/07/18 02/06/18 05:22 05:22 20:06 WBC 8.9 RBC 3.71 L Hgb 9.6 L Hct 31.2 L MCV 84.1 MCH 25.9 L MCHC 30.8 L RDW 16.2 H Plt Count 340 MPV 9.7 Immature Gran % 0.3 Seg Neutrophils % 76.1 Lymphocytes % 13.8 Monocytes % 6.4 Eosinophils % 3.2 Basophils % 0.2 Neutrophils # 6.7 Lymphocytes # 1.2 Monocytes # 0.6 Eosinophils # 0.3 Basophils # 0.0 Sodium 133 L Potassium 4.6 Chloride 105 Carbon Dioxide 22 L BUN 29 H Creatinine 1.37 H Est GFR ( Amer) 49 L Est GFR (Non-Af Amer) 40 L BUN/Creatinine Ratio 21 Glucose 261 H POC Glucose 281 H Calculated Osmolality 291 Calcium 8.7 02/06/18 02/06/18 02/06/18 16:46 11:36 08:06 WBC RBC Hgb Hct MCV MCH MCHC RDW Plt Count MPV Immature Gran % Seg Neutrophils % Lymphocytes % Monocytes % Eosinophils % Basophils % Neutrophils # Lymphocytes # Monocytes # Eosinophils # Basophils # Sodium Potassium Chloride Carbon Dioxide BUN Creatinine Est GFR ( Amer) Est GFR (Non-Af Amer) BUN/Creatinine Ratio Glucose POC Glucose 257 H 215 H 236 H Calculated Osmolality Calcium - Impressions ITS Impressions Foot X-Ray 01/29/18 13:33 IMPRESSION: 1. Chronic deformity of the calcaneus. 2. Soft tissue ulceration. No soft tissue emphysema. D/ / 01/29/2018 17:32:04 Rj Carey MD / earnold Interpreting Provider: Rj Carey MD - Hospital Course Hospital course: Ms. Mccallum is a 52 year old female - Time Spent with Patient Total time spent providing and/or coordinating discharge services: - Discharge Medications Prescriptions: amLODIPine [Norvasc] 10 mg PO DAILY 30 Days #30 tablet Ampicillin 3 gm IV Q6HR 35 Days #105 vial levoFLOXacin [Levaquin] 750 mg IV DAILY 35 Days #35 tablet Home Medications: Atorvastatin Calcium [Lipitor] 80 mg PO DAILY 08/21/16 [History] Clopidogrel [Plavix] 75 mg PO DAILY 08/21/16 [History] Ferrous Sulfate 325 mg PO BIDWM 08/21/16 [History] Gabapentin [Neurontin] 300 mg PO BID 08/21/16 [History] Lisinopril [Zestril] 10 mg PO DAILY 08/21/16 [History] Magnesium Oxide [Magnesium] 400 mg PO DAILY 08/21/16 [History] Nitroglycerin [Nitrostat] 0.4 mg SL Q5M PRN 08/21/16 [History] Ranitidine HCl [Acid Sprinkling System Installer] 150 mg PO BID 08/21/16 [History] Sertraline [Zoloft] 100 mg PO DAILY 08/21/16 [History] Metformin HCl [Glucophage] 1,000 mg PO BID 03/28/17 [History] Insulin ASPART [NovoLOG] 0 unit SQ TIDWM 06/19/17 [History] Sennosides [Senna] 8.6 mg PO DAILY 06/19/17 [History] Insulin Glargine,Hum.rec.anlog [Basaglar Kwikpen U-100] 60 unit SQ QAM 12/30/17 [History] Penicillin G Potassium [Pfizerpen] 12,000,000 unit IVPB DAILY #14 vial 01/03/18 [Rx] Acetaminophen [Tylenol] 650 mg PO Q6HR PRN #30 tablet 01/23/18 [Rx] Ampicillin 3 gm IV Q6HR 35 Days #105 vial 02/07/18 [Rx] amLODIPine [Norvasc] 10 mg PO DAILY 30 Days #30 tablet 02/07/18 [Rx] levoFLOXacin [Levaquin] 750 mg IV DAILY 35 Days #35 tablet 02/07/18 [Rx] Allergies/Adverse Reactions: 3 Allergy/AdvReac Type Severity Reaction Status Date / Time Hydromorphone [From Dilaudid] Allergy Palpitation Verified 01/23/18 22:11 s heparin AdvReac See Verified 01/23/18 22:11 Comments Date of admission: 01/30/18 11:39 Primary care physician: Matteo Love MD Consults: 01/29/18 13:31 Consult to Invasive Line Access Team [CONS] Routine Reason for Consult: limited access, may need penitentiary antibiotics. Line Type: EPIV 01/29/18 13:36 Consult to Hospitalist [CONS] Routine Consulting Provider: Hospitalist [place] Reason for Consult: Diabetes mellitus type 2 with multiple comorbidities Time Notified: 13:45 Call Completed: Yes 01/29/18 17:46 Consult to Jewelry Technician [CONS] Routine Reason for SW Consult: discharge planning, patient may not have stable home, needs ECF placement 01/31/18 16:09 Consult to Occupational Therapy [CONS] Routine Comment: Evaluate, develop and implement POC Reason for Consult: placement to ECF for rehab and wound vac Does patient have active BEDREST order?: No Is patient medically & hemodynamically stable?: Yes Consult to Physical Therapy [CONS] Routine Comment: Evaluate, develop and implement POC Reason for Consult: placement to ECF for rehab and wound vac Does patient have active BEDREST order?: No Is patient medically & hemodynamically stable?: Yes 02/03/18 10:37 Consult to Infectious Diseases [CONS] Routine Consulting Provider: Infectious Disease [place] Reason for Consult: ulcer-pseudomonas, enterobacter Time Notified: 10:40 Call Completed: Yes 02/06/18 12:45 Consult to Invasive Line Access Team [CONS] Routine Reason for Consult: Picc Line Insertion Line Type: PICC PICC line indications: shelter Med/Antibiotic Time Notified: 12:46 Call Completed: Yes Discharging clinician: Chani Hankins Anticipated date of discharge: 02/07/18 - Patient Status Overall status at discharge: patient is progressing back to baseline - Discharge Instructions Instructions: Cellulitis (DC), Diabetes Mellitus Type 2 in Adults (DC) Follow Up With: Matteo Love MD [Primary Care Provider] - - Diet and Activity Activity: other (NWB RLE) - VTE Documentation of Mechanical Device: Intermittent pneumatic compression device
--- NOTE | 2018-02-07 14:03 | Discharge Summary ---
- NOTES TO OUTPATIENT PROVIDER Notes to Outpatient Provider: Admitted for left lower extremity cellulitis, right diabetic foot ulcer with osteomyelitis. Requiring 6 weeks of outpatient treatment with antibiotics. No pending studies at time of discharge. Date of Encounter: 02/07/18 Time of Encounter: 13:59 - Discharge Diagnosis (1) Chronic ulcer of right foot Priority: Primary Status: Chronic Assessment and Plan: Chronic diabetic right foot ulcer with osteomyelitis Poorly controlled DM hgb A1c 10.3 s/p IND surgical debridement, ostectomy and wound VAC placement per Dr. Walker Blood and anaerobic cultures negative so far Wound VAC dressing changed yesterday; we will discharge with wound VAC, dressings to be changed Saturday, , Saturday at [facility]. Patient will require wound vac post discharge. Wound VAC to be changed every Saturday. Prep all surrounding skin with allkare skin barrier prep pads, apply drape, apply Adaptic to the graft jacket prior to application of small simpalce wound VAC sponge, connect to 150 mmhg medium, Rise: 2 minutes , Fall: 10 minutes. Patient is to remain nonweightbearing to RLE Continue dressing changes per Dr. Walker's recommendations Preliminary culture results show gram-negative rods pseudomonas and enterococcus species ID seeing in consultation; appreciate recommendations Plan is to discharge to [facility]; approval pending Needs 6 weeks total of ABX therapy, anticipated stop date of March 13; D/C on Q6hr ampicillin for a total of 12 mg daily and daily 750 Levaquin. Consider d/c this afternoon Patient instructed to follow-up with PCP upon discharge, instructed to follow- up with Dr. Walker at [facility] within 1 week of discharge. Patient verbalizes understanding denies any further questions at this time. Qualifiers: Non-pressure ulcer stage: with necrosis of bone Qualified Code(s): L97.514 - Non-pressure chronic ulcer of other part of right foot with necrosis of bone (2) Chronic osteomyelitis Priority: Secondary Status: Chronic Assessment and Plan: see above 02/07/18 (3) Cellulitis of right lower extremity Priority: Secondary Status: Acute (4) Type 2 diabetes mellitus Priority: Secondary Status: Chronic Qualifiers: Diabetes mellitus middle or intermediate school principal insulin use: with senior care use Diabetes mellitus complication status: with circulatory complication Diabetes mellitus complication detail: with other circulatory complications Qualified Code(s): E11.59 - Type 2 diabetes mellitus with other circulatory complications; Z79.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 (5) Hyponatremia Priority: Secondary Status: Chronic (6) Peripheral neuropathy Priority: Secondary Status: Acute Qualifiers: Peripheral neuropathy type: polyneuropathy, unspecified Qualified Code(s): G62.9 - Polyneuropathy, unspecified (7) Hyperlipidemia Priority: Secondary Status: Chronic Qualifiers: Hyperlipidemia type: mixed hyperlipidemia Qualified Code(s): E78.2 - Mixed hyperlipidemia (8) Tobacco abuse Priority: Secondary Status: Acute (9) CKD (chronic kidney disease) stage 3, GFR 30-59 ml/min Priority: Secondary Status: Chronic (10) Hypertension Priority: Secondary Status: Chronic Qualifiers: Hypertension type: essential hypertension Qualified Code(s): I10 - Essential (primary) hypertension (11) Anemia Priority: Secondary Status: Acute Assessment and Plan: 2/2 chronic Rt diabetic foot ulcer Continues to be stable today, 02/07/18-9.6 continue with oral iron continue to monitor Qualifiers: Anemia type: unspecified type Qualified Code(s): D64.9 - Anemia, unspecified Hospital course: Ms. Mccallum is a 52 year old female with a history significant for diabetes with peripheral neuropathy, hyperlipidemia and mood disorder. Was admitted to the hospital by podiatry Dr. Gallagher. Patient has a right lower extremity diabetic foot ulcer with chronic right calcaneus osteomyelitis and is managed by podiatry. Failed outpatient management. Required incision and drainage as well as ostectomy and wound VAC placement. Peripheral blood cultures obtained throughout admission and no growth to date. Anaerobic cultures of the right foot obtained with no anaerobes recovered. Wound cultures and the surgical biopsy cultures with final results of Enterobacter cloacae, Pseudomonas aeruginosa. Podiatry and infectious disease seeing in consultation throughout hospital course. Uneventful hospital course. Patient is to discharge to receive 6 weeks total of IV antibiotic therapy as well as continuous wound VAC therapy. Therapy to extend to 03/13/2018. Patient will receive daily Levaquin 750 mg and ampicillin 3 g every 6 hours for a total of 12 g daily. Per podiatry ; Wound VAC to be changed every Saturday. Prep all surrounding skin with allkare skin barrier prep pads, apply drape, apply Adaptic to the graft jacket prior to application of small simpalce wound VAC sponge, connect to 150 mmhg medium, Rise: 2 minutes, Fall: 10 minutes. Patient is to remain nonweightbearing to E. Patient being discharged in stable condition. Discharge discussed with: patient, nurse, case management, managed security sales consultant - Time Spent with Patient Total time spent providing and/or coordinating discharge services: Less than 30 minutes - Discharge Medications Prescriptions: Ampicillin 3 gm IV Q6HR 35 Days #105 vial amLODIPine [Norvasc] 10 mg PO DAILY 30 Days #30 tablet levoFLOXacin [Levaquin] 750 mg IV DAILY 35 Days #35 tablet Home Medications: Atorvastatin Calcium [Lipitor] 80 mg PO DAILY 08/21/16 [History] Clopidogrel [Plavix] 75 mg PO DAILY 08/21/16 [History] Ferrous Sulfate 325 mg PO BIDWM 08/21/16 [History] Gabapentin [Neurontin] 300 mg PO BID 08/21/16 [History] Lisinopril [Zestril] 10 mg PO DAILY 08/21/16 [History] Magnesium Oxide [Magnesium] 400 mg PO DAILY 08/21/16 [History] Nitroglycerin [Nitrostat] 0.4 mg SL Q5M PRN 08/21/16 [History] Ranitidine HCl [Acid Process Description Writer] 150 mg PO BID 08/21/16 [History] Sertraline [Zoloft] 100 mg PO DAILY 08/21/16 [History] Metformin HCl [Glucophage] 1,000 mg PO BID 03/28/17 [History] Insulin ASPART [NovoLOG] 0 unit SQ TIDWM 06/19/17 [History] Sennosides [Senna] 8.6 mg PO DAILY 06/19/17 [History] Insulin Glargine,Hum.rec.anlog [Basaglar Kwikpen U-100] 60 unit SQ QAM 12/30/17 [History] Penicillin G Potassium [Pfizerpen] 12,000,000 unit IVPB DAILY #14 vial 01/03/18 [Rx] Acetaminophen [Tylenol] 650 mg PO Q6HR PRN #30 tablet 01/23/18 [Rx] Ampicillin 3 gm IV Q6HR 35 Days #105 vial 02/07/18 [Rx] amLODIPine [Norvasc] 10 mg PO DAILY 30 Days #30 tablet 02/07/18 [Rx] levoFLOXacin [Levaquin] 750 mg IV DAILY 35 Days #35 tablet 02/07/18 [Rx] Allergies/Adverse Reactions: 3 Allergy/AdvReac Type Severity Reaction Status Date / Time Hydromorphone [From Dilaudid] Allergy Palpitation Verified 01/23/18 22:11 s heparin AdvReac See Verified 01/23/18 22:11 Comments Date of admission: 01/30/18 11:39 Primary care physician: Matteo Love MD Consults: 01/29/18 13:31 Consult to Invasive Line Access Team [CONS] Routine Reason for Consult: limited access, may need senior care antibiotics. Line Type: EPIV 01/29/18 13:36 Consult to Hospitalist [CONS] Routine Consulting Provider: [facility] Jasso Reason for Consult: Diabetes mellitus type 2 with multiple comorbidities Time Notified: 13:45 Call Completed: Yes 01/29/18 17:46 Consult to Lending Consultant [CONS] Routine Reason for SW Consult: discharge planning, patient may not have stable home, needs ECF placement 01/31/18 16:09 Consult to Occupational Therapy [CONS] Routine Comment: Evaluate, develop and implement POC Reason for Consult: placement to ECF for rehab and wound vac Does patient have active BEDREST order?: No Is patient medically & hemodynamically stable?: Yes Consult to Physical Therapy [CONS] Routine Comment: Evaluate, develop and implement POC Reason for Consult: placement to ECF for rehab and wound vac Does patient have active BEDREST order?: No Is patient medically & hemodynamically stable?: Yes 02/03/18 10:37 Consult to Infectious Diseases [CONS] Routine Consulting Provider: Infectious Disease [place] Reason for Consult: ulcer-pseudomonas, enterobacter Time Notified: 10:40 Call Completed: Yes 02/06/18 12:45 Consult to Invasive Line Access Team [CONS] Routine Reason for Consult: Picc Line Insertion Line Type: PICC PICC line indications: termite technician Med/Antibiotic Time Notified: 12:46 Call Completed: Yes Discharging clinician: Marty Gallagher Anticipated date of discharge: 02/07/18 - Constitutional Vitals: Temp Pulse Resp BP Pulse Ox 98.4 F 70 17 156/78 98 02/07/18 11:17 02/07/18 11:17 02/07/18 11:17 02/07/18 11:17 02/07/18 11:17 General appearance: Present: A&O X 3, morbidly obese, no acute distress - Head Head exam: Present: atraumatic, normocephalic - Eye Eye exam: Present: PERRL, conjuntiva pink, sclera anicteric Pupils: Present: PERRL - Neck Neck exam general surgery: Present: supple, trachea midline. Absent: lymphadenopathy - Respiratory Respiratory exam: Present: CTAB. Absent: accessory muscle use, rales, rhonchi, wheezes - Cardiovascular Cardiovascular exam: Present: RRR, +S1, +S2. Absent: diastolic murmur, gallop, rubs, systolic murmur - GI/Abdominal GI/Abdominal exam: Present: normal bowel sounds, soft, no peritoneal signs. Absent: distended, tenderness - Extremities Exam Extremities exam: Present: warm, radial pulses palpable and symmetrical. Absent : calf tenderness, cyanotic, pedal edema Additional comments: Wound VAC to right foot plantar aspect, unable to assess wound bed due to wound VAC - Neurological Exam Neurological exam: Present: CN II-XII intact, oriented X3, no focal deficits. Absent: pronater drift, facial droop, speech deficit - Skin Skin exam: Present: dry, intact - Patient Status Disposition: Transfer SNF Condition: Good Functional capacity at discharge: uses cane/walker Overall status at discharge: patient is progressing back to baseline - Discharge Instructions Instructions: Cellulitis (DC), Diabetes Mellitus Type 2 in Adults (DC) Follow Up With: Matteo Love MD [Primary Care Provider] - - Diet and Activity Activity: as per physical therapy, increase activity as tolerated Diet: advance to your usual diet, diabetic diet - VTE Documentation of Mechanical Device: Intermittent pneumatic compression device
--- NOTE | 2018-02-07 14:22 | Physician Discharge Referral ---
ExtendedCare Referral Info Transfer To: [facility] Provider in Charge after Transfer: PCP, Other (Facility provider) Institutional Level of Care: Skilled - Diagnosis (1) Chronic ulcer of right foot Priority: Primary Status: Chronic (2) Chronic osteomyelitis Priority: Secondary Status: Chronic (3) Cellulitis of right lower extremity Priority: Secondary Status: Acute (4) Type 2 diabetes mellitus Priority: Secondary Status: Chronic (5) Hyponatremia Priority: Secondary Status: Chronic (6) Peripheral neuropathy Priority: Secondary Status: Acute (7) Hyperlipidemia Priority: Secondary Status: Chronic (8) Tobacco abuse Priority: Secondary Status: Acute (9) CKD (chronic kidney disease) stage 3, GFR 30-59 ml/min Priority: Secondary Status: Chronic (10) Hypertension Priority: Secondary Status: Chronic (11) Anemia Priority: Secondary Status: Acute Prognosis: Good Aware of Diagnosis: Patient, Family Aware of Prognosis: Patient, Family - Transfer Medications Prescriptions: Ampicillin 3 gm IV Q6HR 35 Days #105 vial amLODIPine [Norvasc] 10 mg PO DAILY 30 Days #30 tablet levoFLOXacin [Levaquin] 750 mg IV DAILY 35 Days #35 tablet Home Medications: Atorvastatin Calcium [Lipitor] 80 mg PO DAILY 08/21/16 [History] Clopidogrel [Plavix] 75 mg PO DAILY 08/21/16 [History] Ferrous Sulfate 325 mg PO BIDWM 08/21/16 [History] Gabapentin [Neurontin] 300 mg PO BID 08/21/16 [History] Lisinopril [Zestril] 10 mg PO DAILY 08/21/16 [History] Magnesium Oxide [Magnesium] 400 mg PO DAILY 08/21/16 [History] Nitroglycerin [Nitrostat] 0.4 mg SL Q5M PRN 08/21/16 [History] Ranitidine HCl [Acid Trade Show Coordinator] 150 mg PO BID 08/21/16 [History] Sertraline [Zoloft] 100 mg PO DAILY 08/21/16 [History] Metformin HCl [Glucophage] 1,000 mg PO BID 03/28/17 [History] Insulin ASPART [NovoLOG] 0 unit SQ TIDWM 06/19/17 [History] Sennosides [Senna] 8.6 mg PO DAILY 06/19/17 [History] Insulin Glargine,Hum.rec.anlog [Basaglar Kwikpen U-100] 60 unit SQ QAM 05/21/18 [History] Penicillin G Potassium [Pfizerpen] 12,000,000 unit IVPB DAILY #14 vial 01/03/18 [Rx] Acetaminophen [Tylenol] 650 mg PO Q6HR PRN #30 tablet 01/23/18 [Rx] Ampicillin 3 gm IV Q6HR 35 Days #105 vial 02/07/18 [Rx] amLODIPine [Norvasc] 10 mg PO DAILY 30 Days #30 tablet 02/07/18 [Rx] levoFLOXacin [Levaquin] 750 mg IV DAILY 35 Days #35 tablet 02/07/18 [Rx] Allergies/Adverse Reactions: 3 Allergy/AdvReac Type Severity Reaction Status Date / Time Hydromorphone [From Dilaudid] Allergy Palpitation Verified 01/23/18 22:11 s heparin AdvReac See Verified 01/23/18 22:11 Comments - Respiratory Orders Smoking Cessation: Smoking cessation has been advised. For more information, call the [employer] Tobacco Quit Line at 9-601-KEZI-NOW. - Advance Directives Code Status: Full Code - Mobility Orders Ambulate (With assistance) - Treatments List/Other: Patient will require wound vac post discharge. Wound VAC to be changed every Saturday. Prep all surrounding skin with allkare skin barrier prep pads, apply drape, apply Adaptic to the graft jacket prior to application of small simpalce wound VAC sponge, connect to 150 mmhg medium, Rise: 2 minutes , Fall: 10 minutes. Remain nonweightbearing to RLE - Diet Orders No Concentrated Sweets CERTIFICATION: I certify that the transfer of the above named patient to an Extended Care Facility is necessary for the continuing treatment of the diagnosis listed. The above information is true and accurate reflection of patient's current condition. Confidential - Redisclosure prohibited without a patient's written consent.
== END 2018-02-07 16:05 | DRG 314 ==
LOC: 3BNU
PROVIDERS: ADMIT Nurse Practitioner Acute Care; ATTEND Podiatrist Foot Surgery

== ENCOUNTER 2018-04-20 01:25 | Inpatient (IN) ==
[2018-04-20] MEDS ORDERED: predniSONE 20 MG TABLET PO ONE (02:06)
[2018-04-20] MEDS ORDERED: Ipratropium/Albuterol Neb 3 ML IH ONE (02:06)
--- NOTE | 2018-04-20 02:11 | Emergency Department Note ---
Disposition Clinical Impression: NSTEMI (non-ST elevated myocardial infarction) Dyspnea Qualifiers: Dyspnea type: unspecified Qualified Code(s): R06.00 - Dyspnea, unspecified Disposition: Admitted As Inpatient Condition: Fair Time of Disposition: 07:16 General Adult HPI - General Chief complaint: ED Shortness of Breath/Dyspnea Stated complaint: LADONNA Time Seen by Provider: 04/20/18 01:39 Source: patient, EMS Mode of arrival: EMS Limitations: no limitations Nursing Notes Reviewed: Yes Vital Signs Reviewed: Yes - History of Present Illness HPI Narrative: Patient is a 52-year-old female to past medical history of Diabetes, HLD, HTN, CAD with one stent, CHF, and CKD that smokes 1 ppd presents to the emergency department for evaluation of dyspnea that started prior to arrival. The patient states that she normally sleeps in a chair and has recently transitioned to a bed. She states that she sleeps propped up on pillows in the bed this is usually tolerable for her, however prior to arrival she woke up and she had slid off the pillows onto the flat bed and was laying completely flat. She states that she became very anxious and short of breath and concerned so she called the squad. Squad gave her one breathing treatment which she stated improved her symptoms. Pain Scale: 0 - Related Data Home Medications Medication Instructions Recorded Confirmed Atorvastatin Calcium [Lipitor] 80 mg PO DAILY 08/21/16 04/20/18 Clopidogrel [Plavix] 75 mg PO DAILY 08/21/16 04/20/18 Ferrous Sulfate 325 mg PO BIDWM 08/21/16 04/20/18 Gabapentin [Neurontin] 300 mg PO BID 08/21/16 04/20/18 Lisinopril [Zestril] 10 mg PO DAILY 08/21/16 04/20/18 Magnesium Oxide [Magnesium] 400 mg PO DAILY 08/21/16 04/20/18 Nitroglycerin [Nitrostat] 0.4 mg SL Q5M PRN 08/21/16 04/20/18 Ranitidine HCl [Acid Clinical Cytogeneticist] 150 mg PO BID 08/21/16 04/20/18 Sertraline [Zoloft] 100 mg PO DAILY 08/21/16 04/20/18 Metformin HCl [Glucophage] 1,000 mg PO BID 03/28/17 04/20/18 Insulin ASPART [NovoLOG] 0 unit SQ TIDWM 06/19/17 04/20/18 Sennosides [Senna] 8.6 mg PO DAILY 06/19/17 04/20/18 Insulin Glargine,Hum.rec.anlog 60 unit SQ QAM 12/30/17 04/20/18 [Basaglbarney Rodrigues U-100] Previous Rx's Medication Instructions Recorded amLODIPine [Norvasc] 10 mg PO DAILY 30 Days #30 tablet 02/07/18 Allergies Allergy/AdvReac Type Severity Reaction Status Date / Time Hydromorphone [From Dilaudid] Allergy Palpitation Verified 01/23/18 22:11 s heparin AdvReac See Verified 01/23/18 22:11 Comments All systems ED: reviewed and negative except as stated. Review of Systems: As Per HPI Constitutional: Denies: fever, chills Cardiovascular: Reports: dyspnea on exertion. Denies: chest pain, palpitations Respiratory: Reports: cough (chronic), dyspnea, wheezes. Denies: hemoptysis, sputum production Gastrointestinal: Denies: abdominal pain, nausea, vomiting Musculoskeletal: Denies: back pain Past Medical History - Past Medical History Attestation: Yes The following information was validated with the patient. Medical history: Reports: coronary artery disease, diabetes, GERD, hyperlipidemia, hypertension, peripheral artery disease, renal disease Surgical history: Reports: angioplasty/stent, orthopedic, other, other Psychiatric history: Reports: depression SAFEMAKER history: Reports: no SAFEMAKER history - Social History Smoking Status: Current every day smoker Smokeless Tobacco Status: No Alcohol use: Reports: none Drug use: Reports: none Physical Exam CONSTITUTIONAL: Patient appears to be in mild respiratory distress. On arrival to the room she was on 4 L nasal cannula, I took her off and she was satting well on room air. She is tachypnic. HEAD: Normocephalic; atraumatic EYES: PERRL, no scleral icterus NOSE: The nose is normal in appearance without rhinorrhea NECK: No JVD or distended neck veins RESP: Diffuse wheezes inspiratory and expiratory. Tachypnea. CARD: Regular rhythm, without murmurs, rub or gallop ABD: Non-distended; non-tender, soft, without rigidity, rebound or guarding,no pulsatile mass CHEST: No pain with palpation SKIN: Normal for age and race; warm and dry without diaphoresis ; no apparent lesions EXTREMITIES: Pulses are 2 plus and equal times 4 extremities, no peripheral edema or calf muscle pain - General Limitations: no limitations General appearance: alert Course Course Narrative: Upon review of past medical history patient had an echocardiogram done in December 2017 which showed an EF of 65% with normal wall motion. Discussed with the patient plan at this time is to evaluate her for her sudden onset of dyspnea. The patient does state that her symptoms have been improving since arriving to the hospital. Discussed we will evaluate for any cardiac ideology of the patient's current symptoms. We will also treat her with steroids and DuoNeb treatments given that she sounds very wheezy on exam. Patient agrees with this plan. - Reevaluation(s) Reevaluation #1: Discussed with the patient and the hospitalist on-call that she currently has an elevation of her troponin she has no EKG changes and is currently asymptomatic after being in the emergency department. Discussed plan to heparinize the patient with low-dose heparin for ACS. I discussed the patient' s allergy with her and she states that at one point she received heparin for what sounds like DVT prophylaxis states she had a large amount of bleeding from the area where they injected the heparin but she denies having any stroke, bleeding from any orifice or acute GI bleed with the heparin. States that she be willing to do the heparin at this time. Patient was accepted to Dr. Coleman. Vital Signs Temperature 98.8 F 04/20/18 01:27 Pulse Rate 95 04/20/18 01:27 Respiratory Rate 33 04/20/18 01:27 Blood Pressure 174/97 04/20/18 01:27 O2 Sat by Pulse Oximetry 94 04/20/18 01:27 Temperature 98.8 F 04/20/18 01:27 Pulse Rate 92 04/20/18 06:30 Respiratory Rate 18 04/20/18 06:30 Blood Pressure 130/61 04/20/18 06:30 O2 Sat by Pulse Oximetry 98 04/20/18 06:30 Oxygen Delivery Oxygen Delivery Room Air Medical Decision Making - Medical Records Medical records reviewed: Yes I reviewed the patient's medical records. - Lab Data Lab results reviewed: Yes I reviewed the patient's lab results. Result diagrams: 04/20/18 04:59 04/20/18 01:37 Lab Results 04/20/18 04/20/18 04/20/18 Range/Units 01:37 01:37 01:37 WBC 12.2 H (4.3-11.1) K/mcL RBC 4.59 (3.82-4.97) M/mcL Hgb 11.9 (11.5-15.4) g/dL Hct 39.0 (35.3-44.9) % MCV 85.0 (83.0-100.0) fL MCH 25.9 L (28.0-33.3) pg MCHC 30.5 L (31.6-35.5) g/dL RDW 17.2 H (11.5-14.5) % Plt Count 377 (140-400) K/mcL MPV 11.0 (9.4-12.4) fL Immature Gran % 0.5 (0-4) % Seg Neutrophils % 81.7 % Lymphocytes % 10.9 % Monocytes % 5.7 % Eosinophils % 1.0 % Basophils % 0.2 % Neutrophils # 10.0 H (1.6-8.9) K/mcL Lymphocytes # 1.3 (0.6-4.6) K/mcL Monocytes # 0.7 (0.0-1.3) K/mcL Eosinophils # 0.1 (0.0-0.6) K/mcL Basophils # 0.0 (0.0-0.2) K/mcL Sodium 135 L (136-145) mEq/L Potassium 4.0 (3.5-5.1) mEq/L Chloride 102 (98-107) mEq/L Carbon Dioxide 22 L (23-29) mEq/L BUN 24 H (6-20) mg/dL Creatinine 1.37 H (0.60-1.20) mg/dL Est GFR ( Amer) 49 L (> 60) Est GFR (Non-Af Amer) 40 L (> 60) BUN/Creatinine Ratio 18 (6-26) Glucose 445 H (70-105) mg/dL Calculated Osmolality 303 H (280-300) Calcium 9.3 (8.6-10.3) mg/dL Troponin I 1.68 H* (< 0.04) ng/mL B-Natriuretic Peptide 1812 H (Less than 100) pg/mL - Radiology Data Radiology results reviewed: Yes I reviewed the patient's radiology results. Chest X-Ray 04/20/18 02:06 IMPRESSION: Chronic interstitial lung disease with right basilar segmental atelectasis versus pneumonia. D/ / Ignacio Sin MD / Ignacio Sin MD Interpreting Provider: Ignacio Sin MD - EKG Data EKG #1 EKG attestation: Yes I reviewed and interpreted this EKG. EKG results narrative: EKG done at 1:31 shows sinus rhythm at a rate of 96 bpm. Normal axis. No signs of ST elevation, ST depression or Q waves present. No signs of ischemia. This EKG is unchanged from EKG done on 01/19/2017. Attestation Statement - Attestation Attestation: I, Matteo Salgado, examined this patient and my medical decision-making was reviewed with the CENTER MEDICAL DIRECTOR/PA/Advanced Practice Nurse/Resident Physician. I agree with the documented findings, disposition and treatment plan as described except to the extent set forth below. 52-year-old female presents emergency Department with concerns of shortness of breath and weakness. Patient states the weakness has been increasing over the past 2 days. Tonight she woke up laying flat on the bed, she generally popped himself up on the pillows or sleeps in a chair. She woke with shortness of breath and came to the emergency department for further evaluation. She is now back to her baseline after sitting up in the emergency department. She denies chest pain, diaphoresis, nausea, palpitations. Laboratory evaluation showed elevation of her troponin. EKG did not show evidence of STEMI. Patient has no chest pain emergency department. Patient was started on heparin in the emergency department for her troponin of 1.68. She will be admitted to the hospitalist for further care and evaluation of her elevated troponin and weakness.
[2018-04-20 02:24] LABS: Basophils % 0.2 %; Eosinophils # 0.1 K/mcL (0.0-0.6); Hemoglobin 11.9 g/dL (11.5-15.4); Immature Granulocytes % 0.5 % (0-4); Lymphocytes # 1.3 K/mcL (0.6-4.6); Lymphocytes % 10.9 %; Mean Corpuscular HGB Conc 30.5 g/dL (31.6-35.5); Mean Corpuscular Hemoglobin 25.9 pg (28.0-33.3); Monocytes # 0.7 K/mcL (0.0-1.3); Monocytes % 5.7 %; Platelet Count 377 K/mcL (140-400); Red Blood Count 4.59 M/mcL (3.82-4.97); Red Cell Distribution Width 17.2 % (11.5-14.5); Segmented Neutrophils % 81.7 %
[2018-04-20 02:35] LABS: Calcium 9.3 mg/dL (8.6-10.3)
[2018-04-20 02:42] LABS: Troponin I 1.68 ng/mL (< 0.04)
[2018-04-20] MEDS ORDERED: *HR* Heparin 5,000 UNIT/ML VIAL IVP PRN (04:26)
[2018-04-20] MEDS ORDERED: *HR* Heparin 5,000 UNIT/ML VIAL IVP ONE (04:26)
[2018-04-20] MEDS ORDERED: Heparin 25,000 UNIT/500 ML D5W 25,000 UNIT/500 ML BAG IVC SCH (04:30)
[2018-04-20 05:10] LABS: Hematocrit 35.8 % (35.3-44.9); Hemoglobin 10.9 g/dL (11.5-15.4); Mean Corpuscular HGB Conc 30.4 g/dL (31.6-35.5); Mean Corpuscular Hemoglobin 25.9 pg (28.0-33.3); Mean Platelet Volume 10.6 fL (9.4-12.4); Platelet Count 322 K/mcL (140-400); Red Blood Count 4.21 M/mcL (3.82-4.97)
[2018-04-20 05:15] LABS: Heparin anti-factor XA UFH 0.07 IU/mL (0.30-0.70); Prothrombin Time 11.6 Seconds (9.4-12.1)
[2018-04-20] MEDS ORDERED: Acetaminophen 325 MG TABLET PO PRN (07:56)
[2018-04-20] MEDS ORDERED: Naloxone 0.4 MG/ML INJ IVP PRN (07:56)
[2018-04-20] MEDS ORDERED: Nitroglycerin 0.4 MG TAB.SUBL SL PRN (08:01)
[2018-04-20] MEDS ORDERED: D5% in Water 1,000 ML IVC PRN (08:02)
[2018-04-20] MEDS ORDERED: Dextrose Gel 15 GM/37.5 ML TUBE PO PRN ×2 (08:02)
[2018-04-20] MEDS ORDERED: *HR* Dextrose 50 % in Water (Syg) 50 ML SYRINGE IVP PRN (08:02)
[2018-04-20] MEDS ORDERED: Insulin DETEMIR 100 UNIT/ML X5UNITS SQ SCH (09:00)
[2018-04-20] MEDS ORDERED: Insulin LISPRO 300 UNITS/3 ML VIAL SQ SCH ×3 (09:06→21:00)
[2018-04-20 09:31] LABS: Basophils % 0.1 %; Hematocrit 33.1 % (35.3-44.9); Hemoglobin 10.2 g/dL (11.5-15.4); Immature Granulocytes % 0.5 % (0-4); Lymphocytes # 0.4 K/mcL (0.6-4.6); Lymphocytes % 2.4 %; Mean Corpuscular HGB Conc 30.8 g/dL (31.6-35.5); Mean Corpuscular Hemoglobin 25.7 pg (28.0-33.3); Mean Corpuscular Volume 83.4 fL (83.0-100.0); Mean Platelet Volume 10.6 fL (9.4-12.4); Monocytes # 0.2 K/mcL (0.0-1.3); Monocytes % 1.3 %; Neutrophils # 14.5 K/mcL (1.6-8.9); Platelet Count 341 K/mcL (140-400); Red Blood Count 3.97 M/mcL (3.82-4.97); Red Cell Distribution Width 17.2 % (11.5-14.5); Segmented Neutrophils % 95.7 %
[2018-04-20] MEDS: Gabapentin 300 MG CAPSULE PO SCH ×2 (09:32→19:47)
[2018-04-20] MEDS: amLODIPine 5 MG TABLET PO SCH (09:32)
[2018-04-20] MEDS: Magnesium Oxide 400 MG TABLET PO SCH (09:33)
[2018-04-20] MEDS: Famotidine 20 MG TABLET PO SCH ×2 (09:33→19:47)
[2018-04-20] MEDS: Sennosides 8.6 MG TABLET PO SCH (09:33)
[2018-04-20] MEDS ORDERED: Perflutren Lipid Microsphere 1.3 ML in 0.9 % Sodium Chloride 8.7 ML IVP ONE (09:39)
--- NOTE | 2018-04-20 09:42 | Internal Med History&Physical ---
Date of Encounter: 04/20/18 Time of Encounter: 09:40 Internal Medicine - H&P: HPI Chief complaint: Shortness of breath Admitted From: Emergency Dept Plans for Post Hospital Care: Home History of present illness: Ms. Mccallum is a 52 year old female with h/o- HTN, DM, CAD, CHF, CKD, who presents with c/o- sudden onset of shortness of breath. Patient reports that she usually sleeps up in a chair, but last night she slid into her bed and when she awoke, she was gasping for air, and short of breath, associated with some dry cough. She does not report any recent upper respiratory infection or treatment with antibiotics or steroids. She has no associated chest pain, wheezing, palpitations, dizziness. She does have chronic leg swelling. No fever, chills. She is ADL independent but currently she has nonweightbearing orders to right leg due to chronic ulcer and recent treatment for osteomyelitis. Past Med Surg Social Fam HX - Past Medical History Source: patient, old records reviewed Medical history: CHF, coronary artery disease, diabetes, GERD, hyperlipidemia, hypertension, peripheral artery disease, renal disease Psychiatric history: depression - Past Surgical History Surgical History: angioplasty/stent, orthopedic, other (right foot Podiatry debridement), other Additional surgical history: right foot surgery, tubes tied. - Social History Smoking Status: Current every day smoker Packs per day: 1 Smokeless Tobacco Status: No Alcohol use: none Drug use: none Occupational status: disabled Current living situation: Home, With Family Activity Level: Uses cane/walker Recent Out of Country Travel Within the Last 8 Weeks: No Exposure or Possible Exposure to Illness During Travel: No - Family History Mother Family Member Ethnicity: Non- Living Status: Still Living Hx Family Cardiac Disorders: Yes Hx Family Endocrine Disorder: Yes (type 2 diabetes) Father Family Member Ethnicity: Non- Living Status: Still Living Hx Family Endocrine Disorder: Yes (type 2 diabetes) Internal Medicine - H&P: Meds Atorvastatin Calcium [Lipitor] 80 mg PO DAILY 08/21/16 [History] Clopidogrel [Plavix] 75 mg PO DAILY 08/21/16 [History] Ferrous Sulfate 325 mg PO BIDWM 08/21/16 [History] Gabapentin [Neurontin] 300 mg PO BID 08/21/16 [History] Lisinopril [Zestril] 10 mg PO DAILY 08/21/16 [History] Magnesium Oxide [Magnesium] 400 mg PO DAILY 08/21/16 [History] Nitroglycerin [Nitrostat] 0.4 mg SL Q5M PRN 08/21/16 [History] Ranitidine HCl [Acid Highway Patrol Commander] 150 mg PO BID 08/21/16 [History] Sertraline [Zoloft] 100 mg PO DAILY 08/21/16 [History] Metformin HCl [Glucophage] 1,000 mg PO BID 03/28/17 [History] Insulin ASPART [NovoLOG] 0 unit SQ TIDWM 06/19/17 [History] Sennosides [Senna] 8.6 mg PO DAILY 06/19/17 [History] Insulin Glargine,Hum.rec.anlog [Basaglar Kwikpen U-100] 60 unit SQ QAM 12/30/17 [History] amLODIPine [Norvasc] 10 mg PO DAILY 30 Days #30 tablet 02/07/18 [Rx] 3 Allergy/AdvReac Type Severity Reaction Status Date / Time Hydromorphone [From Dilaudid] Allergy Palpitation Verified 01/23/18 22:11 s heparin AdvReac See Verified 01/23/18 22:11 Comments All Systems PM: A 10-system review of systems was performed and is negative for pertinent findings except as documented above in the HPI. - Constitutional Constitutional: no chills, no fever(s), no night sweats - EENT Eyes: no change in vision, no discharge, no pain, no photophobia Ears: no ear discharge, no ear pain, no tinnitus Nose, mouth and throat: no dysphagia, no nasal discharge, no neck pain, no sore throat - Cardiovascular Cardiovascular ROS IM: dyspnea, edema, orthopnea, paroxysmal nocturnal dyspnea - Respiratory Respiratory: cough, dyspnea - Gastrointestinal Gastrointestinal: no abdominal pain, no diarrhea, no hematemesis, no hematochezia, no melena, no nausea, no vomiting - Genitourinary Genitourinary: no change in urinary stream, no dysuria, no flank pain, no hematuria - Musculoskeletal Musculoskeletal ROS IM: no numbness, no tingling - Integumentary Integumentary IM: no rash, no unusual bruising - Neurological Neurological ROS: no confusion, no convulsions, no focal weakness, no numbness, no tingling, no tremor(s) - Hematologic/Lymphatic Hematologic/Lymphatic: no easy bruising - Constitutional Vitals: Temp Pulse Resp BP Pulse Ox 98.8 F 92 18 130/61 98 04/20/18 01:27 04/20/18 06:30 04/20/18 06:30 04/20/18 06:30 04/20/18 06:30 General appearance: Present: A&O X 3, answers questions appropriately Exam: . - Head Head exam: Present: atraumatic, normocephalic - Eye Eye exam: Present: PERRL, conjuntiva pink, sclera anicteric Pupils: Present: PERRL - Neck Neck exam general surgery: Present: supple, trachea midline. Absent: lymphadenopathy - Respiratory Respiratory exam: Present: CTAB (coarse breath sounds B/L), rales (faint bibasal crackles). Absent: accessory muscle use, rhonchi, wheezes - Cardiovascular Cardiovascular exam: Present: RRR, +S1, +S2. Absent: diastolic murmur, gallop, rubs, systolic murmur - GI/Abdominal GI/Abdominal exam: Present: normal bowel sounds, soft (obese), no peritoneal signs. Absent: distended, tenderness - Extremities Exam Extremities exam: Present: full ROM, pedal edema (1+ pitting pedal edema), warm , radial pulses palpable and symmetrical. Absent: calf tenderness, cyanotic - Neurological Exam Neurological exam: Present: CN II-XII intact, oriented X3, no focal deficits. Absent: pronater drift, facial droop, speech deficit - Skin Skin exam: Present: dry, intact Internal Med - H&P Results - Labs CBC & Chem 7: 04/20/18 09:08 04/20/18 09:08 - EKG Data -: EKG Interpreted by Myself (1mm ST depression in lateral leads) EKG shows normal: sinus rhythm Rate: normal - Assessment and plan (1) Acute respiratory failure Current Visit: Yes Status: Acute Assessment and plan: Patient is not on home oxygen, requiring up to 4 L/m supplemental oxygen via nasal cannula. Likely due to cor pulmonale and acute heart failure. Continue current management. High risk for complications as mentioned below; Qualifiers: Respiratory failure complication: hypoxia Qualified Code(s): J96.01 - Acute respiratory failure with hypoxia (2) CHF (congestive heart failure) Current Visit: Yes Status: Acute Assessment and plan: Echocardiogram from December 2017 shows preserved EF, moderate diastolic dysfunction , mild aortic regurgitation, no pulmonary hypertension. Patient likely has cor pulmonale from COPD. Not on diuretics at home. Start IV Lasix and fluid restriction, urine output monitoring. Start low-dose beta himanshu. Continue telemetry monitoring, cycle troponins. Cardiology consulted. Qualifiers: Heart failure type: diastolic Heart failure chronicity: acute on chronic Qualified Code(s): I50.33 - Acute on chronic diastolic (congestive) heart failure (3) CAD (coronary artery disease) Current Visit: Yes Status: Chronic Assessment and plan: Patient has history of remote stents. Continue Plavix, statin, ANIKA inhibitor; follow-up cardiology consult. Qualifiers: Coronary Disease-Associated Artery/Lesion type: [place] artery [place] vs. transplanted heart: [place] heart Associated angina: without angina Qualified Code(s): I25.10 - Atherosclerotic heart disease of [place] coronary artery without angina pectoris (4) Depression Current Visit: Yes Status: Chronic Qualifiers: Depression Type: unspecified Qualified Code(s): F32.9 - Major depressive disorder, single episode, unspecified (5) NSTEMI (non-ST elevated myocardial infarction) Current Visit: Yes Status: Acute Assessment and plan: Patient presented with acute onset of dyspnea, PND, troponin elevation up to 1.68, elevated BNP 1812, and EKG changes of minimal St depression; started on anticoagulation with IV heparin drip in the emergency room. Continue Plavix, statin, beta himanshu, ANIKA inhibitor. Repeat limited echocardiogram. Consult cardiology. (6) Peripheral arterial disease Current Visit: Yes Status: Chronic (7) Tobacco abuse Current Visit: Yes Status: Chronic Assessment and plan: Smoking cessation counseling given for 3 minutes. Patient understands risks of continued smoking on her underlying COPD, peripheral arterial disease and CAD. Nicotine transdermal patch as needed. (8) CKD (chronic kidney disease) stage 3, GFR 30-59 ml/min Current Visit: Yes Status: Chronic Assessment and plan: Serum creatinine is noted to be 1.37, consistent with her baseline. Continue to monitor closely. (9) Chronic ulcer of right foot Current Visit: Yes Status: Chronic Assessment and plan: continue local wound care per Podiatry recommendations; Qualifiers: Non-pressure ulcer stage: unspecified non-pressure ulcer stage Qualified Code(s): L97.519 - Non-pressure chronic ulcer of other part of right foot with unspecified severity (10) Hypertension Current Visit: Yes Status: Chronic Assessment and plan: Blood pressure noted to be uncontrolled, continue home medications and start Lasix and metoprolol as mentioned above. Qualifiers: Hypertension type: essential hypertension Qualified Code(s): I10 - Essential (primary) hypertension (11) Type 2 diabetes mellitus Current Visit: Yes Status: Chronic Assessment and plan: Are to have uncontrolled blood sugars in 500s. Mild acidosis noted on BMP but normal anion gap, venous blood gas shows no acidosis. Start home dose of Levemir along with high-dose sliding scale insulin. Monitor blood sugars closely. Hemoglobin A1c noted to be 10.3% in January 2018. Repeat. Diabetic diet. Qualifiers: Diabetes mellitus shelter insulin use: with shelter use Diabetes mellitus complication status: with hyperglycemia Qualified Code(s): E11.65 - Type 2 diabetes mellitus with hyperglycemia; Z79.4 - custodial (current) use of insulin - Time Spent With Patient Total time spent is greater than 50% in coordination of care (as documented) at patient's floor/unit and/or counseling patient:
[2018-04-20 10:09] LABS: Calcium 8.8 mg/dL (8.6-10.3); Potassium 4.8 mEq/L (3.5-5.1)
[2018-04-20 10:53] LABS: ABG Base Excess -5 mEq/L (-2 to 3); ABG HCO3 20 mEq/L (21-27); ABG Oxygen Saturation 87 % (95-98); ABG PCO2 35 mmHg (35-45); ABG PH 7.36 pH Units (7.32-7.45); ABG PO2 55 mmHg (85-104); ABG TCO2 21 mEq/L (20-26)
[2018-04-20] MEDS ORDERED: Insulin LISPRO 300 UNITS/3 ML VIAL SQ ONE (11:41)
--- NOTE | 2018-04-20 12:47 | Cardiology Consult Note ---
Date of Encounter: 04/20/18 Time of Encounter: 12:44 Assessment and Plan (1) Elevated troponin Current Visit: Yes Status: Acute Could be secondary to COPD exacerbation. Does have elevated trop. and EKG changes. Would recommend left heart cath in AM. She agrees to proceed. Discussion w patient/family: The assessment and plan as outlined above was discussed with the patient and/or family members who expressed understanding and agreement. All questions were answered. Thank you for involving us in the care of your patient. Please call with any questions. History of Present Illness Consult date: 04/20/18 Requesting physician: Talia Erwin Consult reason: SOB, abnormal trop. Chief complaint: SOB History of present illness: Ms. Mccallum is a 52 year old female with history of CAD and remote PCI presents with acute SOB. Was treated in ED with bronchodilators with some improvement. Subsequent troponin was noted to be elevated. Past Med Surg Social Fam HX - Past Medical History Medical history: coronary artery disease, diabetes, GERD, hyperlipidemia, hypertension, peripheral artery disease, renal disease Psychiatric history: depression - Past Surgical History Surgical History: angioplasty/stent, orthopedic, other, other Additional surgical history: right foot surgery, tubes tied. - Social History Smoking Status: Current every day smoker Smokeless Tobacco Status: No Alcohol use: none Drug use: none - Family History Mother Family Member Ethnicity: Non- Living Status: Still Living Hx Family Cardiac Disorders: Yes Hx Family Endocrine Disorder: Yes (type 2 diabetes) Father Family Member Ethnicity: Non- Living Status: Still Living Hx Family Endocrine Disorder: Yes (type 2 diabetes) Medications and Allergies Atorvastatin Calcium [Lipitor] 80 mg PO DAILY 08/21/16 [History] Clopidogrel [Plavix] 75 mg PO DAILY 08/21/16 [History] Ferrous Sulfate 325 mg PO BIDWM 08/21/16 [History] Gabapentin [Neurontin] 300 mg PO BID 08/21/16 [History] Lisinopril [Zestril] 10 mg PO DAILY 08/21/16 [History] Magnesium Oxide [Magnesium] 400 mg PO DAILY 08/21/16 [History] Nitroglycerin [Nitrostat] 0.4 mg SL Q5M PRN 08/21/16 [History] Ranitidine HCl [Acid Student Financial Aid Manager] 150 mg PO BID 08/21/16 [History] Sertraline [Zoloft] 100 mg PO DAILY 08/21/16 [History] Metformin HCl [Glucophage] 1,000 mg PO BID 03/28/17 [History] Insulin ASPART [NovoLOG] 0 unit SQ TIDWM 06/19/17 [History] Sennosides [Senna] 8.6 mg PO DAILY 06/19/17 [History] Insulin Glargine,Hum.rec.anlog [Basaglar Kwikpen U-100] 60 unit SQ QAM 12/30/17 [History] amLODIPine [Norvasc] 10 mg PO DAILY 30 Days #30 tablet 02/07/18 [Rx] 3 Allergy/AdvReac Type Severity Reaction Status Date / Time Hydromorphone [From Dilaudid] Allergy Palpitation Verified 01/23/18 22:11 s heparin AdvReac See Verified 01/23/18 22:11 Comments All Systems Review: The remainder of the systems were reviewed and are negative Physical Examination Vital Signs, Last 4 Hours Temp Pulse Resp BP Pulse Ox 04/20/18 11:34 171/96 04/20/18 11:27 97.8 F 89 21 97 General: Conversant, No Apparent Distress HEENT: Atraumatic, Normocephaly, Mucus Membranes Moist Neck: No JVD, Normal carotid pulses Cardiac: Reg Rate and Rhythm, Normal S1 and S2, No Murmur Lungs: Other (diffuse wheezing) Neuro: Alert and responsive, No focal deficits noted Abdomen: Soft, Non-Tender Skin: No rashes noted on visualized skin Musculoskeletal: No Chest Wall Tenderness Results 04/20/18 09:08 04/20/18 09:08 Lab Results 04/20/18 04/20/18 04/20/18 09:08 09:08 09:08 WBC 15.1 H Hgb 10.2 L Hct 33.1 L Plt Count 341 Sodium 130 L Potassium 4.8 Chloride 102 Carbon Dioxide 18 L BUN 27 H Creatinine 1.46 H Glucose 532 H* Calcium 8.8 Magnesium 1.9 Troponin I 04/20/18 09:08 WBC Hgb Hct Plt Count Sodium Potassium Chloride Carbon Dioxide BUN Creatinine Glucose Calcium Magnesium Troponin I 1.30 H* - EKG Interpretation EKG results cardiology: other (Inferior St-T wave changes) Consult Discharge Plan - Plan Referrals: Matteo Love MD [Primary Care Provider] -
[2018-04-20] MEDS: Insulin LISPRO 300 UNITS/3 ML VIAL SQ SCH ×3 (17:21→19:58)
[2018-04-20] MEDS: *HR* Heparin 5,000 UNIT/ML VIAL IVP PRN (18:11)
[2018-04-20] MEDS: Insulin DETEMIR 100 UNIT/ML X5UNITS SQ SCH (19:47)
[2018-04-20] MEDS: Furosemide 20 MG/2 ML VIAL IVP SCH (19:48)
--- NOTE | 2018-04-20 22:23 | Event Note ---
Date of Encounter: 04/20/18 Time of Encounter: 22:21 Troponin up to 2.33, from 2.06. The patient is sleeping. Heparin drip continued. Will also get 12 lead ekg.
[2018-04-21 05:12] LABS: Basophils % 0.2 %; Eosinophils % 0.2 %; Hematocrit 33.3 % (35.3-44.9); Hemoglobin 10.1 g/dL (11.5-15.4); Immature Granulocytes % 0.7 % (0-4); Lymphocytes % 7.6 %; Mean Corpuscular HGB Conc 30.3 g/dL (31.6-35.5); Mean Corpuscular Hemoglobin 25.8 pg (28.0-33.3); Mean Corpuscular Volume 85.2 fL (83.0-100.0); Mean Platelet Volume 10.7 fL (9.4-12.4); Monocytes # 0.7 K/mcL (0.0-1.3); Monocytes % 5.4 %; Neutrophils # 11.1 K/mcL (1.6-8.9); Platelet Count 317 K/mcL (140-400); Red Blood Count 3.91 M/mcL (3.82-4.97); Red Cell Distribution Width 17.4 % (11.5-14.5); Segmented Neutrophils % 85.9 %
[2018-04-21 05:28] LABS: Troponin I 2.66 ng/mL (< 0.04)
[2018-04-21 05:33] LABS: Calcium 9.1 mg/dL (8.6-10.3); Chol/HDL Ratio 3.8 (0-4.9); Potassium 4.4 mEq/L (3.5-5.1)
[2018-04-21] MEDS: *HR* Heparin 5,000 UNIT/ML VIAL IVP PRN (06:04)
[2018-04-21] MEDS: Famotidine 20 MG TABLET PO SCH ×2 (07:52→17:24)
[2018-04-21] MEDS: Furosemide 20 MG/2 ML VIAL IVP SCH ×2 (07:52→17:25)
[2018-04-21] MEDS: amLODIPine 5 MG TABLET PO SCH (07:53)
[2018-04-21] MEDS: Magnesium Oxide 400 MG TABLET PO SCH (07:53)
[2018-04-21] MEDS: Sennosides 8.6 MG TABLET PO SCH (07:53)
[2018-04-21] MEDS: Gabapentin 300 MG CAPSULE PO SCH ×2 (07:55→20:38)
[2018-04-21] MEDS: Insulin LISPRO 300 UNITS/3 ML VIAL SQ SCH ×7 (08:14→20:39)
[2018-04-21] MEDS: Insulin DETEMIR 100 UNIT/ML X5UNITS SQ SCH ×2 (08:22→20:39)
[2018-04-21] MEDS ORDERED: Heparin 1,000 UNITS/500 mL 500 ML ONE ×2 (09:23→09:49)
[2018-04-21] MEDS ORDERED: *HR* Heparin 10,000 UNIT/10 ML VIAL ONE (09:23)
[2018-04-21] MEDS ORDERED: ISOVUE-370 200 ML INFUS..BTL IV ONE ×2 (09:23→09:50)
[2018-04-21] MEDS ORDERED: Nitroglycerin 1,000 MCG/10 ML VIAL IV ONE (09:23)
[2018-04-21] MEDS ORDERED: 0.9 % Sodium Chloride 1,000 ML ONE ×3 (09:23→09:40)
[2018-04-21] MEDS ORDERED: *HR* Midazolam HCl 2 MG/2 ML VIAL ONE (09:37)
[2018-04-21] MEDS ORDERED: *HR* FentaNYL (PF) 100 MCG/2 ML VIAL ONE (09:37)
--- NOTE | 2018-04-21 09:45 | Pre-Sedation Evaluation ---
Pre-sedation evaluation - Pre-sedation checklist Date of procedure: 04/21/18 Procedure: Heart Cath Recent Vitals: Last Vital Signs Temp 97.9 F 04/21/18 06:54 Pulse 62 04/21/18 06:54 Resp 21 04/21/18 06:54 BP 129/84 04/21/18 06:54 Pulse Ox 99 04/21/18 06:54 H&P (including ROS) documented in medical record: Yes Previous reaction to sedatives/anesthetics: No Dietary Status: NPO after Midnight Dentition: No loose teeth or bridges Cardiac Registry (Cardio Only) - Functional Capacity Functional Capacity: >=4 METS with symptoms - Clincal Frailty Scale Clinical Frailty Scale: Vulnerable
--- NOTE | 2018-04-21 09:54 | Event Note ---
Date of Encounter: 04/21/18 Time of Encounter: 09:53 - Cardiology Event Note D/W patient R/B/A of a [facility] in regards to , stroke, [place], and worsening CKD. Patient understands she is at a higher than normal risk for CHUCK with possible HD and accepts this risk.
[2018-04-21] MEDS ORDERED: Tirofiban 12.5 MG/250ML 12.5 MG/250 ML BAG ONE (10:12)
--- NOTE | 2018-04-21 10:56 | Invasive Diagnostic Lab Proc ---
Name: Jessenia Mccallum Date of Study: 04/21/2018 Date: 1965 Ht: 66.9in Medical Record#: [id number] Age: 52 Wt: 296.52lb Gender: Female BSA: 2.39 Order #: [id number] BMI: 46.54 Physicians Procedure Physician: Bambi Baptiste MD Referring MD: Referring MD: Indications Indication Non-Stemi Procedures Performed Procedure L HRT ARTERY/VENTRICLE ANGIO PRQ CARD ANGELIQUE STENT W/ANGIO 1 VSL Pre-Procedure Checklist Informed consent is complete signed and on chart. H&P is on chart. ID band is on and ID verified with patient. Patient NPO for procedure The procedure was described for the patient and questions were answered. Blood Pressure: 130/80 ECG is on chart. Rhythm: NSR Plan of Care Patient will tolerate the procedure without complications. Adequate level of comfort will be maintained. Hemodynamics will remain stable Patient will recover from procedure without complications. Respiratory function will be maintained. Cardiac rhythm will remain stable. Patient temperature will be maintained. Patient and/or family have verbalized understanding of the procedure. Patient Education Chief Complaint/Reason for Test: Cardiac Cath Developmental Category: Adult (18-64 years) Developmentally Appropriate for Age: Yes Learning Barriers: None Education Needs: Plan of Care Education Method: Verbal Information Taught: Cardiac Cath Educational Evaluation: Able to repeat information Intravenous Access Time IV Size Location DC'd Fluid/Drip Rate Units RN 09:42 AM 18g 1 /" Patent On Arrival Lt Antecubital 0.9NaCl 25 ml/hr Noel Beach RN Allergies Hydromorphone Vital Signs Time BP (mmHg) HR (bpm) O2 Sat. RR (bpm) LOC 09:37 AM 130 / 80 58 95 % 16 5 = Fully awake and oriented or at pre-proc level 09:37 AM / % 4 = Oriented but drowsy 09:52 AM / % 4 = Oriented but drowsy 10:07 AM / % 4 = Oriented but drowsy 10:22 AM / % 4 = Oriented but drowsy 09:40 AM 130 / 80 60 97 % 24 09:45 AM 131 / 75 57 96 % 25 09:50 AM 128 / 77 57 97 % 17 09:55 AM 123 / 73 56 94 % 16 10:00 AM 121 / 70 56 96 % 15 10:05 AM 125 / 69 56 95 % 15 10:10 AM 111 / 70 57 95 % 16 10:15 AM 120 / 68 57 96 % 16 10:20 AM 114 / 73 57 88 % 16 10:25 AM 116 / 71 55 97 % 16 10:30 AM 125 / 70 59 97 % 16 10:35 AM 122 / 67 56 97 % 18 Procedural Medications Time Medication Dose Units Method Given By 09:41 AM Oxygen 2 L/min nasal cannula Noel Beach RN 09:41 AM Versed 1 mg Intravenous Noel Beach RN 09:41 AM Fentanyl 50 mcg Intravenous Noel Beach RN 09:59 AM Lidocaine 2% 10 ml Subcutaneous Bambi Baptiste MD 10:02 AM Ancef 1 gram Intravenous Noel Beach RN 10:13 AM Aggrastat Bolus: 66.5 ml Intravenous Noel Beach RN 10:13 AM Aggrastat 12.5mg/250ml 24 ml Intravenous Noel eBach RN 10:15 AM Heparin 5000 units Intravenous Noel Beach RN 10:35 AM Plavix 75 mg Orally Noel Beach RN ASA Classification: CLASS II- Mild systemic disease (i.e. well-controlled diabetes, hypertension, asthma, cigarette smoking) Jessica Score Preprocedure Postprocedure Activity 2- Moves 4 extremities sustained head lift Activity 2- Moves 4 extremities sustained head lift Circulation 2- SBP +/= 20 points of pre-anesthetic level Circulation 2- SBP +/= 20 points of pre-anesthetic level Consciousness 2- Awake and alert oriented x 3 Consciousness 2- Awake and alert oriented x 3 O2 Saturation 2- Able to maintain O2 satruation of 92% on room air O2 Saturation 2- Able to maintain O2 satruation of 92% on room air Respiratory 2- Able to deep breathe and cough well Respiratory 2- Able to deep breathe and cough well Total Score 10 Total Score 10 Contrast Agent: Isovue Diagnostic Contrast: 57 ml Total Contrast: 57 ml Fluoro Dose: 49419 mGy Activated Clotting Time Time Seconds to Clot 10:15 AM 134 Procedure Log Time Note Enter By 09:37 AM CathStat 09:37 AM 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 [email or web address] 09:37 AM Procedure start 09:37 [email or web address] 09:37 AM Patient charges- Angio tray pack, Navilyst 3mm J, Pulse Oximetry and ACIST tubing and transducer [email or web address] 09:37 AM Case Delayed no [email or web address] 09:37 AM Time: 09:37 Patient comfortable and pain free: Yes [email or web address] 09:37 AM Time: 09:37LOC: 5 = Fully awake and oriented or at pre-proc level [email or web address] 09:40 AM Vitals capture started with the following parameters, Patient=Adult, Interval=5 min, Initial Agnqorkn=230 mmHg, Deflation Rate=5 mmHg, Cuff placed on Right Arm 09:40 AM Recorded ECG: HR=62 Condition=Condition 1 09:40 AM HR=60 bpm, AKOB=689/80 mmhg, SpO2=97.0 %, Resp=24 B/min, Comment=SB 09:41 AM Time: 09:41 Oxygen on at 2 L/min per nasal cannula by Noel Beach RN [email or web address] 09:41 AM Time: 09:41 Versed 1 mg Intravenous Given by Noel Beach RN [email or web address] 09:41 AM Time: 09:41 Fentanyl 50 mcg Intravenous Given by Noel Beach RN [email or web address] 09:41 AM ASA Class CLASS II- Mild systemic disease (i.e. well-controlled diabetes, hypertension, asthma, cigarette smoking) [email or web address] 09:45 AM HR=57 bpm, NXVV=264/75 mmhg, SpO2=96.0 %, Resp=25 B/min, EtCO2=34 mmHg, Comment=SB 09:46 AM Pressure channel 1 zeroed. 09:50 AM HR=57 bpm, QIUP=628/77 mmhg, SpO2=97.0 %, Resp=17 B/min, EtCO2=34 mmHg, Comment=SB 09:51 AM Pressure channel 1 zeroed. 09:52 AM Time: 09:37LOC: 4 = Oriented but drowsy [email or web address] 09:52 AM Time: 09:37 Patient comfortable and pain free: Yes [email or web address] 09:55 AM Pressure channel 1 zeroed. 09:55 AM HR=56 bpm, VJZL=875/73 mmhg, SpO2=94.0 %, Resp=16 B/min, EtCO2=33 mmHg 09:56 AM Time out performed according to hospital policy [email or web address] 10:00 AM Time: 09:59 10 ml Lidocaine 2% to right groin Subcutaneous Given by Bambi Baptiste MD [email or web address] 10:00 AM Micro-Introducer Kit utilized for sheath placement [email or web address] 10:00 AM HR=56 bpm, TCEF=022/70 mmhg, SpO2=96.0 %, Resp=15 B/min, EtCO2=32 mmHg, Comment=SB 10:00 AM Unsuccessful access attempt # 1 into the right Femoral artery. Manual pressure applied to achieve hemostasis.. [email or web address] 10:01 AM 3 mls contrast injected into Rt FA [email or web address] 10:02 AM Access obtained by percutaneous puncture. 6Fr 10cm Terumo [place] sheath placed in right Femoral artery. [id number] [email or web address] 10:02 AM 0.035 145cm Navilyst 3mmJ wire [id number] [email or web address] 10:02 AM Time: 10:02 Ancef 1 gram Intravenous Given by Noel Beach RN [email or web address] 10:05 AM 5Fr FL 4 catheter inserted over the wire [facility] [email or web address] 10:05 AM LCA angiography performed in multiple views. [email or web address] 10:05 AM Recorded Pressure: Ao, HR=57, Condition=Condition 1 (Aorta) Ao 94/53/71 10:05 AM HR=56 bpm, HEIE=056/69 mmhg, SpO2=95.0 %, Resp=15 B/min, EtCO2=35 mmHg, Comment=SB 10:07 AM Catheter removed [email or web address] 10:07 AM 5Fr FR 4 catheter inserted over the wire [facility] [email or web address] 10:07 AM RCA angiography performed in multiple views. [email or web address] 10:07 AM Time: 09:52 Patient comfortable and pain free: Yes [email or web address] 10:07 AM Time: 09:52LOC: 4 = Oriented but drowsy [email or web address] 10:08 AM Recorded Pressure: LV, HR=56, Condition=Condition 1 (Left Ventricle) LV 96/19/24 10:08 AM Recorded Pressure: LV, Ao, HR=56, Condition=Condition 1 (Left Ventricle) LV 103/16/34, (Aorta) Ao 91/51/69 10:09 AM Catheter selectively placed in left ventricle [email or web address] 10:09 AM Pull back recorded no LV gram. [email or web address] 10:10 AM Coronary Dominance: right [email or web address] 10:10 AM HR=57 bpm, MEZY=423/70 mmhg, SpO2=95.0 %, Resp=16 B/min, EtCO2=33 mmHg, Comment=SB 10:12 AM Catheter removed [email or web address] 10:12 AM 6Fr JR 4 Runway guide catheter was used to cannulate the PCI vessel successfully. reused? No [email or web address] 10:12 AM Inflation device was opened. [email or web address] 10:12 AM .014 [employer] [place] 190cm guide wire across target lesion- successful. reused? No [email or web address] 10:13 AM Time: 10:13 Aggrastat Bolus: 66.5 ml Intravenous Given by Noel Beach RN [place] pump [email or web address] 10:13 AM Time: 10:13 Aggrastat 12.5mg/250ml 24 ml Intravenous Given by Noel Beach RN [place] pump [email or web address] 10:15 AM At 10:15 the ACT was 134 seconds. [email or web address] 10:15 AM Time: 10:15 Heparin 5000 units Intravenous Given by Noel Beach RN [email or web address] 10:15 AM HR=57 bpm, CWOY=568/68 mmhg, SpO2=96.0 %, Resp=16 B/min, EtCO2=31 mmHg, Comment=SB 10:18 AM Recorded Pressure: Ao, HR=57, Condition=Condition 1 (Aorta) Ao 96/59/75 10:19 AM Guide wire removed intact. [email or web address] 10:19 AM .014 [employer] 50 190cm guide wire across target lesion- successful. reused? No [email or web address] 10:20 AM HR=57 bpm, KUVQ=351/73 mmhg, SpO2=88.0 %, Resp=16 B/min, EtCO2=35 mmHg, Comment=SB 10:22 AM Pressure channel 2 zeroed. 10:22 AM Time: 10:07LOC: 4 = Oriented but drowsy [email or web address] 10:23 AM Time: 10:07 Patient comfortable and pain free: Yes [email or web address] 10:23 AM Pressure channel 2 zeroed. 10:25 AM 2.0 mm x 12 mm Emerge Monorail balloon across target lesion- successful. reused? No [email or web address] 10:25 AM HR=55 bpm, AWLD=240/71 mmhg, SpO2=97.0 %, Resp=16 B/min, Comment=SB 10:26 AM Balloon inflated @ 6 altagracia for 9 seconds [email or web address] 10:27 AM Balloon inflated @ 6 altagracia for 14 seconds [email or web address] 10:27 AM Balloon catheter removed intact. [email or web address] 10:28 AM 2.5mm x 20mm Synergy drug-eluting stent across target lesion- successful Lot #[id number] [email or web address] 10:30 AM Stent deployed @ 9 altagracia for 12 seconds [email or web address] 10:30 AM HR=59 bpm, IVRN=885/70 mmhg, SpO2=97.0 %, Resp=16 B/min, EtCO2=30 mmHg 10:31 AM Stent balloon reinflated @ 12 altagracia for 9 seconds [email or web address] 10:32 AM Stent delivery system removed intact. [email or web address] 10:33 AM Guide wire removed intact. [email or web address] 10:33 AM Guide catheter removed intact. [email or web address] 10:33 AM Procedure completed at 10:33 04/21/2018 [email or web address] 10:33 AM Did you address JOSHUA flow and Dominance? Yes [email or web address] 10:33 AM Sign out completed: Radiation Dose 1637.80 mGy, 39851 cGy/cm2 Fluoro Time: 10.1 Isovue 370 - 200ml contrast 57 ml given by Bambi Baptiste MD. Complications: NoneCardiac Rehab Consult needed: YesConfirmed administered medications: Yes [email or web address] 10:34 AM Isovue 370 - 200ml,1 Bottle(s) used. [email or web address] 10:34 AM Arterial sheath pulled, Angio-seal closure device used and was Successful S/N. [email or web address] 10:35 AM Time: 10:35 Plavix 75 mg Orally Given by Noel Beach RN [email or web address] 10:35 AM Estimated Blood Loss: minimal [email or web address] 10:35 AM HR=56 bpm, OKUY=421/67 mmhg, SpO2=97.0 %, Resp=18 B/min, EtCO2=34 mmHg, Comment=SB 10:36 AM Post Blood Pressure 122/67 [email or web address] 10:36 AM 10:36 Post Pulses Rt DP/PT Doppler [email or web address] 10:36 AM Information taught Cardiac Cath and PCI [email or web address] 10:36 AM Education needs Procedure, Plan of Care, and Disease Process [email or web address] 10:37 AM Learning barriers :None [email or web address] 10:37 AM Education Methods Verbal [email or web address] 10:37 AM Education evaluation Able to repeat information [email or web address] 10:37 AM Site status No bleeding/hematoma - Rt Groin as reported by Sites, Lucinda RT (R) at 10:37 [email or web address] 10:37 AM Opsite applied [email or web address] 10:37 AM Delay to floor No [email or web address] 10:37 AM Family placed in not available. [email or web address] 10:37 AM Complications: None [email or web address] 10:38 AM Time: 10:23 Patient comfortable and pain free: Yes [email or web address] 10:38 AM Time: 10:22LOC: 4 = Oriented but drowsy [email or web address] 10:47 AM Report given to Bouchra BARILLAS Pt taken to E Room #18. 10:47 [email or web address] 10:47 AM Patient out of room: 10:47 [email or web address] Complications Complication None None Hemodynamics Pressures Site Systolic/A Wave Diastolic/V Wave Mean AO 94 53 71 LV 96 19 24 LV 103 16 34 AO 91 51 69 AO 96 59 75 Post Procedure Information Blood Pressure: 122/67 mmHg Post procedural instructions were given Closure Device Time Device Success/Fail 04/21/2018 10:37:00 AM Angio-Seal VIP Successful Site Checks Time Location Status Staff Sheath In? Note 10:37 AM Rt Groin No bleeding/hematoma Sites, Lucinda RT (R) Pulses Time Site Pre-Procedure Post-Procedure Note 04/21/2018 9:42:00 AM Bilateral radial 2+ 04/21/2018 9:42:00 AM Rt DP/PT Doppler 04/21/2018 9:43:00 AM Lt DP./PT 1+ 10:36:00 AM Rt DP/PT Doppler Updated by Rosaura Holliday, RT(R) on 04/21/2018 10:49:05 AM electronically signed on 04/21/2018 10:50:08 AM with status of Final
[2018-04-21] MEDS ORDERED: Tirofiban 12.5 MG/250ML 12.5 MG/250 ML BAG IVC SCH (11:15)
--- NOTE | 2018-04-21 14:07 | Internal Med Progress Note ---
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 Coarse breath sounds. Heart: Normal S1 & S2; rhythmic. No rubs or murmurs. Abdomen: Non-distended, soft and nontender, obese Extremities: full ROM, B/L 1+ pedal edema; foul-smelling left foot dressing with heel; ulcer, chronic Neurological: Somnolent, responsive to tactile stimulus. No focal deficits. - Assessment and Plan (1) Acute respiratory failure Current Visit: Yes Status: Acute Assessment and Plan: Likely due to cor pulmonale and acute heart failure. Improving O2 requirements ; Continue current management. (2) CHF (congestive heart failure) Current Visit: Yes Status: Acute Assessment and Plan: Echocardiogram from December 2017 shows preserved EF, moderate diastolic dysfunction , mild aortic regurgitation, no pulmonary hypertension. Repeat limited Echo showed preserved EF; Patient likely has cor pulmonale from COPD. Continue IV Lasix and fluid restriction, urine output monitoring. Only 1.2L urine output documented; Started low-dose beta himanshu. Continue telemetry monitoring. Cardiology on board; (3) CAD (coronary artery disease) Current Visit: Yes Status: Chronic Assessment and Plan: Patient has history of remote stents. Received stent today; Continue Plavix, statin, ANIKA inhibitor; follow-up cardiology recommendations; (4) Depression Current Visit: Yes Status: Chronic (5) NSTEMI (non-ST elevated myocardial infarction) Current Visit: Yes Status: Acute Assessment and Plan: Patient presented with acute onset of dyspnea, PND, troponin elevation up to 2.66; started on anticoagulation with IV heparin drip; Continue Plavix, statin, beta himanshu, ANIKA inhibitor. Cardiology consulted; patient underwent LHC today and received successful PTCA/ ANGELIQUE to distal RCA; now on IV Tirofiban; (6) Peripheral arterial disease Current Visit: Yes Status: Chronic (7) Tobacco abuse Current Visit: Yes Status: Chronic (8) CKD (chronic kidney disease) stage 3, GFR 30-59 ml/min Current Visit: Yes Status: Chronic Assessment and Plan: Serum creatinine is noted to be 1.56, around her baseline. Continue to monitor closely as she is at increased risk for CHUCK due to heart cath today. (9) Chronic ulcer of right foot Current Visit: Yes Status: Chronic (10) Hypertension Current Visit: Yes Status: Chronic (11) Type 2 diabetes mellitus Current Visit: Yes Status: Chronic Assessment and Plan: Blood sugars noted to be slowly improving, down to 200-300s today; increase Levemir and continue SSI and nutritional insulin as needed; Monitor blood sugars closely. Hemoglobin A1c noted to be 10.3% in January 2018. Repeat. Diabetic diet. - Time Spent with Patient Total time spent is greater than 50% in coordination of care (as documented) at patient's floor/unit and/or counseling patient: Plan of Care Discussed with: nurse Internal Medicine: Result - Labs CBC & Chem 7: 04/21/18 04:51 04/21/18 04:51 Labs: Short CBC 04/21/18 Range/Units 04:51 WBC 12.9 H (4.3-11.1) K/mcL Hgb 10.1 L (11.5-15.4) g/dL Hct 33.3 L (35.3-44.9) % Plt Count 317 (140-400) K/mcL Neutrophils # 11.1 H (1.6-8.9) K/mcL BMP 04/21/18 04:51 Sodium 132 L Potassium 4.4 Chloride 104 Carbon Dioxide 19 L BUN 35 H Creatinine 1.56 H Glucose 403 H Calcium 9.1 Cardiac Enzymes 04/20/18 04/20/18 04/21/18 Range/Units 15:00 21:34 04:51 Troponin I 2.06 H* 2.33 H* 2.66 H* (< 0.04) ng/mL - ABG Interpretation ABG results: ABG ABG pH 7.36 pH Units (7.32-7.45) 04/20/18 10:49 ABG pCO2 35 mmHg (35-45) 04/20/18 10:49 ABG pO2 55 mmHg (85-104) L 04/20/18 10:49 ABG O2 Saturation 87 % (95-98) L 04/20/18 10:49 PT/INR, D-dimer PT 11.6 Seconds (9.4-12.1) 04/20/18 04:59 Consult Discharge Plan - Plan Referrals: Kate,Matteo Velez MD [Primary Care Provider] - (1) Acute respiratory failure Qualifiers: Respiratory failure complication: hypoxia Qualified Code(s): J96.01 - Acute respiratory failure with hypoxia (2) CHF (congestive heart failure) Qualifiers: Heart failure type: diastolic Heart failure chronicity: acute on chronic Qualified Code(s): I50.33 - Acute on chronic diastolic (congestive) heart failure (3) CAD (coronary artery disease) Qualifiers: Coronary Disease-Associated Artery/Lesion type: [place] artery [place] vs. transplanted heart: [place] heart Associated angina: without angina Qualified Code(s): I25.10 - Atherosclerotic heart disease of [place] coronary artery without angina pectoris (4) Depression Qualifiers: Depression Type: unspecified Qualified Code(s): F32.9 - Major depressive disorder, single episode, unspecified (9) Chronic ulcer of right foot Qualifiers: Non-pressure ulcer stage: unspecified non-pressure ulcer stage Qualified Code (s): L97.519 - Non-pressure chronic ulcer of other part of right foot with unspecified severity (10) Hypertension Qualifiers: Hypertension type: essential hypertension Qualified Code(s): I10 - Essential (primary) hypertension (11) Type 2 diabetes mellitus Qualifiers: Diabetes mellitus usp insulin use: with usp use Diabetes mellitus complication status: with hyperglycemia Qualified Code(s): E11.65 - Type 2 diabetes mellitus with hyperglycemia; 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
[2018-04-22 04:16] LABS: Basophils % 0.3 %; Eosinophils # 0.1 K/mcL (0.0-0.6); Hematocrit 32.8 % (35.3-44.9); Hemoglobin 9.8 g/dL (11.5-15.4); Immature Granulocytes % 0.3 % (0-4); Lymphocytes # 2.1 K/mcL (0.6-4.6); Lymphocytes % 20.5 %; Mean Corpuscular HGB Conc 29.9 g/dL (31.6-35.5); Mean Corpuscular Hemoglobin 25.5 pg (28.0-33.3); Mean Corpuscular Volume 85.2 fL (83.0-100.0); Mean Platelet Volume 10.5 fL (9.4-12.4); Monocytes # 0.8 K/mcL (0.0-1.3); Monocytes % 7.6 %; Neutrophils # 7.2 K/mcL (1.6-8.9); Platelet Count 326 K/mcL (140-400); Red Blood Count 3.85 M/mcL (3.82-4.97); Red Cell Distribution Width 17.9 % (11.5-14.5); Segmented Neutrophils % 70.3 %
[2018-04-22 04:38] LABS: Calcium 8.9 mg/dL (8.6-10.3); Potassium 4.1 mEq/L (3.5-5.1)
[2018-04-22 07:00] VITALS: BP 137/79
[2018-04-22] MEDS: Sennosides 8.6 MG TABLET PO SCH (08:57)
[2018-04-22] MEDS: Famotidine 20 MG TABLET PO SCH (08:57)
[2018-04-22] MEDS: Gabapentin 300 MG CAPSULE PO SCH (08:57)
[2018-04-22] MEDS: amLODIPine 5 MG TABLET PO SCH (08:57)
[2018-04-22] MEDS: Magnesium Oxide 400 MG TABLET PO SCH (08:57)
[2018-04-22] MEDS: Insulin DETEMIR 100 UNIT/ML X5UNITS SQ SCH (08:58)
[2018-04-22] MEDS: Insulin LISPRO 300 UNITS/3 ML VIAL SQ SCH ×4 (08:58→11:48)
[2018-04-22] MEDS: Furosemide 20 MG/2 ML VIAL IVP SCH (08:58)
--- NOTE | 2018-04-22 09:41 | Cardiology Progress Note ---
Date of Encounter: 04/22/18 Time of Encounter: 09:39 Assessment and Plan (1) NSTEMI (non-ST elevated myocardial infarction) Current Visit: Yes Status: Acute Peak troponin 2.66. S/P [facility] yesterday revealed severe 1 vessel CAD. Successful PTCA/ANGELIQUE in distal RCA. Stent placed from prior procedure in 1st diagonal patent. DAPT (ASA and Plavix) uninterrupted x 1 year. Pt verbalizes understanding. Continue BB, Statin, ACEi. Right femoral access site healing well. No bleeding, hematoma or ecchymosis noted. Post cath restrictions discussed. HGB 9.8, mild downtrending since admission (11.9). Denies active bleeding. Stage III CKD, creatinine 1.66 today. Creatinine was 1.56 yesterday, still near her baseline range. No events on tele. Cardiology signing off. Reconsult PRN. Will coordinate outpt follow-up in 1 week. (2) CHF (congestive heart failure) Current Visit: Yes Status: Acute Acute on chronic diastolic CHF. Limited TTE 04/20 EF 60%. Normal RV structure and function. Moderate diastolic dysfunction on TTE 12/2017. Moderate LE edema on exam, denies dyspnea currently. On IV lasix 20mg BID. Recommend transitioning to PO prior to d/c. Recommend strict I/Os, Na and fluid restriction, daily weights. Qualifiers: Heart failure type: diastolic Heart failure chronicity: acute on chronic Qualified Code(s): I50.33 - Acute on chronic diastolic (congestive) heart failure (3) CAD (coronary artery disease) Current Visit: Yes Status: Chronic Known CAD s/p PCI. [facility] yesterday ANGELIQUE to distal RCA. ASA, Plavix, Statin, BB, ACEi. Qualifiers: Coronary Disease-Associated Artery/Lesion type: [place] artery [place] vs. transplanted heart: [place] heart Associated angina: without angina Qualified Code(s): I25.10 - Atherosclerotic heart disease of [place] coronary artery without angina pectoris (4) CKD (chronic kidney disease) stage 3, GFR 30-59 ml/min Current Visit: Yes Status: Chronic Stage 3 CKD. Creatinine 1.66 today, near baseline range. (5) Tobacco abuse Current Visit: Yes Status: Chronic Smoking cessation counseling given. Discussion w patient/family: The assessment and plan as outlined above was discussed with the patient and/or family members who expressed understanding and agreement. All questions were answered. Thank you for involving us in the care of your patient. Please call with any questions. I will discuss all the above with Dr. Conley and make changes as necessary. Subjective Principal diagnosis: NSTEMI Interval history: S/P LHC yesterday with PTCA/ANGELIQUE to dRCA. Stent placed from prior procedure in 1st diag is patent. Pt denies acute complaints this AM. Objective Vital Signs, Last 4 Hours Temp Pulse Resp BP Pulse Ox 04/22/18 06:59 97.7 F 72 16 137/79 97 Vital Signs Temp Pulse Resp BP Pulse Ox 04/22/18 06:59 97.7 F 72 16 137/79 97 04/22/18 04:00 98 F 65 15 137/74 95 04/22/18 01:00 98 F 62 16 109/60 92 04/21/18 21:00 98 F 62 16 122/85 97 04/21/18 20:45 92 04/21/18 15:57 97.4 F L 61 20 117/71 92 04/21/18 13:45 60 108/70 04/21/18 12:45 55 119/82 93 04/21/18 12:15 57 121/73 04/21/18 11:55 62 16 109/72 2 04/21/18 11:30 97.5 F L 56 16 121/70 96 04/21/18 11:27 97.5 F L 57 21 121/70 93 04/21/18 11:00 58 119/78 Intake and Output 04/21/18 04/22/18 04/22/18 23:59 07:59 15:59 Intake Total 195 / 195 60 / 60 Output Total 600 / 600 500 / 500 Balance -405 / -405 -440 / -440 Intake: IV Fluids 195 / 195 Aggrastat 12.5 MG/250 ML 12.5 195 / 195 mg In 250 ml @ 0.15 MCG/KG/MIN 24.21 mls/hr IVC .[id number] NATE Rx#:[id number] Oral 60 / 60 Output: Urine 600 / 600 500 / 500 Other: Weight 134.6 kg Blood Glucose* 142 85 Patient Weight 04/22/18 23:59 Weight 134.6 kg General: Conversant, No Apparent Distress HEENT: Atraumatic, Normocephaly, Mucus Membranes Moist Neck: No JVD, Normal carotid pulses Cardiac: Reg Rate and Rhythm, Normal S1 and S2, No Murmur Lungs: Other (diminished) Neuro: Alert and responsive, No focal deficits noted Abdomen: Soft, Non-Tender Skin: No rashes noted on visualized skin Musculoskeletal: No Chest Wall Tenderness Extremities: Other (moderate LE edema noted) Results 04/22/18 03:39 04/22/18 03:39 Lab Results 04/22/18 04/22/18 03:39 03:39 WBC 10.2 Hgb 9.8 L Hct 32.8 L Plt Count 326 Sodium 135 L Potassium 4.1 Chloride 107 Carbon Dioxide 19 L BUN 41 H Creatinine 1.66 H Glucose 88 Calcium 8.9 Short CBC 04/22/18 Range/Units 03:39 WBC 10.2 (4.3-11.1) K/mcL Hgb 9.8 L (11.5-15.4) g/dL Hct 32.8 L (35.3-44.9) % Plt Count 326 (140-400) K/mcL Neutrophils # 7.2 (1.6-8.9) K/mcL BMP 04/22/18 Range/Units 03:39 Sodium 135 L (136-145) mEq/L Potassium 4.1 (3.5-5.1) mEq/L Chloride 107 (98-107) mEq/L Carbon Dioxide 19 L (23-29) mEq/L BUN 41 H (6-20) mg/dL Creatinine 1.66 H (0.60-1.20) mg/dL Glucose 88 (70-105) mg/dL Calcium 8.9 (8.6-10.3) mg/dL Active Medications Acetaminophen (Tylenol) 650 mg PO Q6HR PRN PRN Reason: Mild Pain/Fever Stop: 10/20/18 07:57 Amlodipine Besylate (Norvasc) 10 mg PO DAILY [facility] PRN Reason: Protocol Stop: 10/20/18 09:01 Last Admin: 04/22/18 08:57 Dose: 10 mg Aspirin (Aspirin) 81 mg PO DAILY [facility] Stop: 10/22/18 09:46 Atorvastatin Calcium (Lipitor) 80 mg PO DAILY [facility] Stop: 10/20/18 09:01 Last Admin: 04/22/18 08:58 Dose: 80 mg Clopidogrel Bisulfate (Plavix) 75 mg PO DAILY [facility] Stop: 10/20/18 09:01 Last Admin: 04/22/18 08:57 Dose: 75 mg Dextrose/Water (Dextrose 50% (Syg)) 25 ml IVP AD PRN PRN Reason: Hypoglycemia Stop: 10/20/18 08:03 Famotidine (Pepcid) 20 mg PO BIDAC NATE Stop: 10/20/18 09:01 Last Admin: 04/22/18 08:57 Dose: 20 mg Ferrous Sulfate (Ferrous Sulfate) 325 mg PO BIDWM NATE Stop: 10/20/18 17:01 Last Admin: 04/22/18 08:57 Dose: 325 mg Furosemide (Lasix) 20 mg IVP BIDDIURETIC [facility] Stop: 10/20/18 21:01 Last Admin: 04/22/18 08:58 Dose: 20 mg Gabapentin (Neurontin) 300 mg PO BID [facility] Stop: 10/20/18 09:01 Last Admin: 04/22/18 08:57 Dose: 300 mg Glucagon (Glucagen) 1 mg IM ONCE PRN PRN Reason: Hypoglycemia Stop: 10/20/18 08:03 Glucose (Gluctose) 15 gm PO ONCE PRN PRN Reason: Hypoglycemia Stop: 10/20/18 08:03 Glucose (Gluctose) 30 gm PO ONCE PRN PRN Reason: Hypoglycemia Stop: 10/20/18 08:03 Dextrose (Dextrose 5%) 1,000 mls @ 100 mls/hr IVC .Q10H PRN PRN Reason: HYPOGLYCEMIA Stop: 10/20/18 08:03 Insulin Detemir (Levemir) 40 unit SQ BID [facility] Stop: 10/21/18 21:01 Last Admin: 04/22/18 08:58 Dose: 40 unit Insulin Human Lispro (Humalog) 0 units SQ TIDAC [facility] PRN Reason: Protocol Stop: 10/20/18 16:31 Last Admin: 04/22/18 08:58 Dose: Not Given Insulin Human Lispro (Humalog) 0 units SQ HS [facility] PRN Reason: Protocol Stop: 10/20/18 21:01 Last Admin: 04/21/18 20:39 Dose: Not Given Insulin Human Lispro (Humalog) 12 units SQ TIDWM [facility] Stop: 10/20/18 17:46 Last Admin: 04/22/18 08:58 Dose: 12 units Lisinopril (Zestril) 10 mg PO DAILY [facility] PRN Reason: Protocol Stop: 10/20/18 09:01 Last Admin: 04/22/18 08:57 Dose: 10 mg Magnesium Oxide (Mag-Ox) 400 mg PO DAILY [facility] PRN Reason: Protocol Stop: 10/20/18 09:01 Last Admin: 04/22/18 08:57 Dose: 400 mg Metoprolol Tartrate (Lopressor) 12.5 mg PO BID [facility] Stop: 10/20/18 09:01 Last Admin: 04/22/18 08:57 Dose: 12.5 mg Naloxone HCl (Narcan) 0.4 mg IVP Q2MIN PRN PRN Reason: SEE COMMENTS Stop: 10/20/18 07:57 Nitroglycerin (Nitroglycerin) 0.4 mg SL Q5M PRN PRN Reason: Chest Pain Stop: 10/20/18 08:02 Senna (Senna) 8.6 mg PO DAILY [facility] Stop: 10/20/18 09:01 Last Admin: 04/22/18 08:57 Dose: 8.6 mg Sertraline HCl (Zoloft) 100 mg PO DAILY [facility] Stop: 10/20/18 09:01 Last Admin: 04/22/18 08:57 Dose: 100 mg - Imaging and Cardiology Echo: report reviewed Cardiac cath: report reviewed - EKG Interpretation EKG results cardiology: other (12 hr tele AVG HR 64, SR, no significant pauses or arrhythmias noted) Consult Discharge Plan - Plan Additional Instructions: RISK FACTORS: STOP SMOKING: If you smoke, STOP. Smoking or tobacco use significantly increases your risk of heart disease because nicotine causes the arteries to narrow or constrict. It also causes fats to stick to the artery. Your chances of having a heart attack are greatly increased if you continue to smoke. For more information, call the education line for smoking cessation 6-892-EXIYBYS EAT A LOW FAT/CHOLESTEROL/SODIUM DIET: This diet may help reduce your chances of having a heart attack. LIFTING: Avoid lifting anything more than 10 pounds for 5-7 days Prior to straining, laughing, sneezing and/or coughing, apply manual pressure directly over insertion site. ACTIVITY: You may walk or climb stairs as tolerated You can resume sexual activity as tolerated In general, you are encouraged to engage in a minimum of 30 minutes or more of moderate intensity physical activity, such as brisk walking, daily or at least 3 -4 times weekly BATHING Do not submerge the site into water (bath tub, hot tub, swimming pool) for 1 week. This can be a source for infection into the blood stream. You may shower after 24 hours SITE CARE: After 24 hours, you may remove the dressing and leave the site open to air. Keep the site clean and dry. Clean gently and pat dry. You can expect bruising and tenderness that gradually resolve within a week or two. Return to work as instructed per your physician Resume driving as instructed per physician Keep all scheduled follow up appointments Resume medications as instructed IMPORTANT: If prescribed a Platelet Aggregation Inhibitor such as, Plavix, Brilinta or Effient: Duration of therapy is minimum one year These medications are often used in combination with Aspirin in prevention of future heart attacks Never discontinue unless consult with your Senior Account Clerk STROKE (CVA) Risk factors for a stroke are: Age, cigarette smoking, diabetes, excessive alcohol consumption, family history, high blood pressure, overweight, physical inactivity, prior stroke, heart attack, diagnosis of carotid artery stenosis or other artery disease. Warning signs: Sudden numbness or weakness of the face, arm or leg; especially on one side of the body, sudden confusion, trouble speaking or understanding, sudden trouble seeing in one or both eyes, sudden trouble walking, dizziness, loss of balance or coordination, sudden severe headache with no cause. Call 911 or go to the Emergency Room. CONGESTIVE HEART FAILURE: If you have been diagnosed with Congestive Heart Failure (CHF) and your symptoms return, make an appointment with your physician Weigh yourself daily. Notify your physician if you have a weight gain of two or more pounds in one day or five or more pounds in one week. If you experience any difficulty breathing, please call 911 BLEEDING: Although the risk of bleeding is minimal, it can happen. If you have any bleeding from the site, apply firm pressure above the puncture site for 10-15 minutes. If the bleeding does not stop, continue manual pressure and call 911 Contact your physician if: You develop a fever greater than 101 degrees Fahrenheit Your site becomes reddened or has any drainage You have an increase in pain or burning at the site or if a large knot forms at the site. If you experience chest pain, shortness of breath, dizziness, or extreme tiredness, stop the activity and rest. Please notify your physicians office if you experience any of these symptoms and they are not relieved by rest please call 911! Referrals: Matteo Love MD [Primary Care Provider] -
[2018-04-22] MEDS ORDERED: Aspirin 81 MG TAB.CHEW PO SCH (09:45)
--- NOTE | 2018-04-22 10:56 | Discharge Summary ---
- NOTES TO OUTPATIENT PROVIDER Notes to Outpatient Provider: 1. Pt has ANGELIQUE stent placed, plz cont DAPT for at least 1 year. 2. Pt has SOB on adm and BNP high to 1800, lasix started, will discharge on po lasix 20mh po daily. 3. Metoprolol 12.5mg po bid added per cardio. Date of Encounter: 04/22/18 Time of Encounter: 09:30 - Discharge Diagnosis (1) Type 2 diabetes mellitus Priority: Secondary Status: Chronic Qualifiers: Diabetes mellitus care home insulin use: with marine oil terminal superintendent use Diabetes mellitus complication status: with hyperglycemia Qualified Code(s): E11.65 - Type 2 diabetes mellitus with hyperglycemia; Z79.4 - MCFP (current) use of insulin (2) Chronic ulcer of right foot Priority: Secondary Status: Chronic Qualifiers: Non-pressure ulcer stage: unspecified non-pressure ulcer stage Qualified Code(s): L97.519 - Non-pressure chronic ulcer of other part of right foot with unspecified severity (3) Tobacco abuse Priority: Secondary Status: Chronic (4) CKD (chronic kidney disease) stage 3, GFR 30-59 ml/min Priority: Secondary Status: Chronic (5) Hypertension Priority: Secondary Status: Chronic Qualifiers: Hypertension type: essential hypertension Qualified Code(s): I10 - Essential (primary) hypertension (6) Peripheral arterial disease Priority: Secondary Status: Chronic (7) NSTEMI (non-ST elevated myocardial infarction) Priority: Primary Status: Acute (8) Acute respiratory failure Priority: Secondary Status: Acute Qualifiers: Respiratory failure complication: hypoxia Qualified Code(s): J96.01 - Acute respiratory failure with hypoxia (9) CHF (congestive heart failure) Priority: Secondary Status: Acute Qualifiers: Heart failure type: diastolic Heart failure chronicity: acute on chronic Qualified Code(s): I50.33 - Acute on chronic diastolic (congestive) heart failure (10) CAD (coronary artery disease) Priority: Primary Status: Chronic Qualifiers: Coronary Disease-Associated Artery/Lesion type: [place] artery [place] vs. transplanted heart: [place] heart Associated angina: without angina Qualified Code(s): I25.10 - Atherosclerotic heart disease of [place] coronary artery without angina pectoris (11) Depression Priority: Secondary Status: Chronic Qualifiers: Depression Type: unspecified Qualified Code(s): F32.9 - Major depressive disorder, single episode, unspecified Hospital course: Ms. Mccallum is a 52 year old female present to ER for shortness of breath and chest pain. Patient was a found elevated troponin. Consider NSTEMI. Patient also has elevated BNP to 1800. Patient was treated with IV Lasix and heparin drip. Cardiology consult saw patient. LHC has been done. ANGELIQUE stent was placed. Patient's symptoms has significantly improved after treatment. I have seen and examined the patient today. Patient is awake alert, denies chest pain or shortness of breath. Vitals are stable. Cardiology saw patient already and clearing patient for discharge. Patient will discharge home and continue follow-up with PCP and cardiology as outpatient. Patient will continue DAPT for at least 12 months. Smoking cessation education has been done at bedside. Discharge discussed with: patient Time spent discussing smoking cessation with patient: 3 to 10 minutes - Time Spent with Patient Total time spent providing and/or coordinating discharge services: 40 minutes Greater than 30 minutes - Discharge Medications Prescriptions: Aspirin 81 mg PO DAILY 30 Days #30 tab.chew Metoprolol [Lopressor] 12.5 mg PO BID 30 Days #30 tablet Home Medications: Atorvastatin Calcium [Lipitor] 80 mg PO DAILY 08/21/16 [History] Clopidogrel [Plavix] 75 mg PO DAILY 08/21/16 [History] Ferrous Sulfate 325 mg PO BIDWM 08/21/16 [History] Gabapentin [Neurontin] 300 mg PO BID 08/21/16 [History] Lisinopril [Zestril] 10 mg PO DAILY 08/21/16 [History] Magnesium Oxide [Magnesium] 400 mg PO DAILY 08/21/16 [History] Nitroglycerin [Nitrostat] 0.4 mg SL Q5M PRN 08/21/16 [History] Ranitidine HCl [Acid Computer Forwarding System Markup Clerk] 150 mg PO BID 08/21/16 [History] Sertraline [Zoloft] 100 mg PO DAILY 08/21/16 [History] Metformin HCl [Glucophage] 1,000 mg PO BID 03/28/17 [History] Insulin ASPART [NovoLOG] 0 unit SQ TIDWM 06/19/17 [History] Sennosides [Senna] 8.6 mg PO DAILY 06/19/17 [History] Insulin Glargine,Hum.rec.anlog [Basaglar Kwikpen U-100] 60 unit SQ QAM 12/30/17 [History] amLODIPine [Norvasc] 10 mg PO DAILY 30 Days #30 tablet 02/07/18 [Rx] Aspirin 81 mg PO DAILY 30 Days #30 tab.chew 04/22/18 [Rx] Furosemide [Lasix] 20 mg PO DAILY 30 Days #30 tablet 04/22/18 [Rx] Metoprolol [Lopressor] 12.5 mg PO BID 30 Days #30 tablet 04/22/18 [Rx] Allergies/Adverse Reactions: 3 Allergy/AdvReac Type Severity Reaction Status Date / Time Hydromorphone [From Dilaudid] Allergy Palpitation Verified 04/21/18 09:01 s heparin AdvReac See Verified 04/21/18 09:01 Comments Date of admission: 04/20/18 07:56 Primary care physician: Matteo Love MD Consults: 04/20/18 07:59 Consult to Cardiology [CONS] Routine Comment: Consulting Provider: Cardiology [facility] Reason for Consult: Acute CHF, elevated Troponin, probably cor pulmonale Call Completed: No 04/21/18 08:02 Consult to Cardiac Rehabilitation-Phase1 [CONS] Routine Comment: Reason for Consult: NSTEMI Call Completed: No 04/21/18 11:05 Consult to Cardiac Rehabilitation-Phase1 [CONS] Routine Comment: Reason for Consult: AMI Call Completed: Yes Consult to Nurse Navigator [CONS] Routine Comment: 04/21/18 13:45 Consult to Occupational Therapy [CONS] Routine Comment: Evaluate, develop and implement POC Reason for Consult: Generalized weakness, nonweight bearing on right foot; s/p left heart cath and stenting Does patient have active BEDREST order?: No Is patient medically & hemodynamically stable?: Yes Patient assessed for mobility or mobilized this visit?: No Consult to Physical Therapy [CONS] Routine Comment: Evaluate, develop and implement POC Reason for Consult: Generalized weakness, nonweight bearing on right foot; s/p left heart cath and stenting Does patient have active BEDREST order?: No Is patient medically & hemodynamically stable?: Yes Patient assessed for mobility or mobilized this visit?: No Discharging clinician: Marquis Schrader Anticipated date of discharge: 04/22/18 - Constitutional Vitals: Temp Pulse Resp BP Pulse Ox 97.7 F 72 16 137/79 97 04/22/18 06:59 04/22/18 06:59 04/22/18 06:59 04/22/18 06:59 04/22/18 06:59 General appearance: Present: A&O X 3, answers questions appropriately Exam: General: morbidly obese female lying comfortably in bed, in NAD - Head Head exam: Present: atraumatic, normocephalic - Eye Eye exam: Present: PERRL, conjuntiva pink, sclera anicteric Pupils: Present: PERRL - Neck Neck exam general surgery: Present: supple, trachea midline. Absent: lymphadenopathy - Respiratory Respiratory exam: Present: CTAB. Absent: accessory muscle use, rales, rhonchi, wheezes - Cardiovascular Cardiovascular exam: Present: RRR, +S1, +S2. Absent: diastolic murmur, gallop, rubs, systolic murmur - GI/Abdominal GI/Abdominal exam: Present: normal bowel sounds, soft, no peritoneal signs. Absent: distended, tenderness - Extremities Exam Extremities exam: Present: warm, radial pulses palpable and symmetrical. Absent : calf tenderness, cyanotic, pedal edema - Neurological Exam Neurological exam: Present: CN II-XII intact, oriented X3, no focal deficits. Absent: pronater drift, facial droop, speech deficit - Skin Skin exam: Present: dry, intact - Patient Status Disposition: Home, Self-Care Condition: Good Functional capacity at discharge: independent ambulation Overall status at discharge: patient is back to baseline - Discharge Instructions Follow Up With: Matteo Love MD [Primary Care Provider] - Additional Instructions: RISK FACTORS: STOP SMOKING: If you smoke, STOP. Smoking or tobacco use significantly increases your risk of heart disease because nicotine causes the arteries to narrow or constrict. It also causes fats to stick to the artery. Your chances of having a heart attack are greatly increased if you continue to smoke. For more information, call the education line for smoking cessation 4-042-PNXDFMF EAT A LOW FAT/CHOLESTEROL/SODIUM DIET: This diet may help reduce your chances of having a heart attack. LIFTING: Avoid lifting anything more than 10 pounds for 5-7 days Prior to straining, laughing, sneezing and/or coughing, apply manual pressure directly over insertion site. ACTIVITY: You may walk or climb stairs as tolerated You can resume sexual activity as tolerated In general, you are encouraged to engage in a minimum of 30 minutes or more of moderate intensity physical activity, such as brisk walking, daily or at least 3 -4 times weekly BATHING Do not submerge the site into water (bath tub, hot tub, swimming pool) for 1 week. This can be a source for infection into the blood stream. You may shower after 24 hours SITE CARE: After 24 hours, you may remove the dressing and leave the site open to air. Keep the site clean and dry. Clean gently and pat dry. You can expect bruising and tenderness that gradually resolve within a week or two. Return to work as instructed per your physician Resume driving as instructed per physician Keep all scheduled follow up appointments Resume medications as instructed IMPORTANT: If prescribed a Platelet Aggregation Inhibitor such as, Plavix, Brilinta or Effient: Duration of therapy is minimum one year These medications are often used in combination with Aspirin in prevention of future heart attacks Never discontinue unless consult with your Roll Plugger Machine Operator STROKE (CVA) Risk factors for a stroke are: Age, cigarette smoking, diabetes, excessive alcohol consumption, family history, high blood pressure, overweight, physical inactivity, prior stroke, heart attack, diagnosis of carotid artery stenosis or other artery disease. Warning signs: Sudden numbness or weakness of the face, arm or leg; especially on one side of the body, sudden confusion, trouble speaking or understanding, sudden trouble seeing in one or both eyes, sudden trouble walking, dizziness, loss of balance or coordination, sudden severe headache with no cause. Call 911 or go to the Emergency Room. CONGESTIVE HEART FAILURE: If you have been diagnosed with Congestive Heart Failure (CHF) and your symptoms return, make an appointment with your physician Weigh yourself daily. Notify your physician if you have a weight gain of two or more pounds in one day or five or more pounds in one week. If you experience any difficulty breathing, please call 911 BLEEDING: Although the risk of bleeding is minimal, it can happen. If you have any bleeding from the site, apply firm pressure above the puncture site for 10-15 minutes. If the bleeding does not stop, continue manual pressure and call 911 Contact your physician if: You develop a fever greater than 101 degrees Fahrenheit Your site becomes reddened or has any drainage You have an increase in pain or burning at the site or if a large knot forms at the site. If you experience chest pain, shortness of breath, dizziness, or extreme tiredness, stop the activity and rest. Please notify your physicians office if you experience any of these symptoms and they are not relieved by rest please call 911! - Diet and Activity Activity: increase activity as tolerated Diet: diabetic diet, low fat, low cholesterol, low salt diet
--- NOTE | 2018-04-22 13:26 | Physician Discharge Referral ---
Home Health/Hosp Referral Info Transfer to: Home Health Provider in Charge Post Discharge: PCP - Diagnosis (1) Type 2 diabetes mellitus Status: Chronic (2) Chronic ulcer of right foot Status: Chronic (3) Tobacco abuse Status: Chronic (4) CKD (chronic kidney disease) stage 3, GFR 30-59 ml/min Status: Chronic (5) Hypertension Status: Chronic (6) Peripheral arterial disease Status: Chronic (7) NSTEMI (non-ST elevated myocardial infarction) Status: Acute (8) Acute respiratory failure Status: Acute (9) CHF (congestive heart failure) Status: Acute (10) CAD (coronary artery disease) Status: Chronic (11) Depression Status: Chronic - Respiratory Orders Smoking Cessation: Smoking cessation has been advised. For more information, call the [employer] Tobacco Quit Line at 3-632-ZRDT-NOW. - Diet/Nutrition Diet/Nutrition Orders: No Concentrated Sweets - Activity Activity Orders: Ambulate - Services Needed Following services are medically necessary services: Nursing, Home Health Aide, Physical Therapy, Occupational Therapy - Transfer Medications Prescriptions: Aspirin 81 mg PO DAILY 30 Days #30 tab.chew Furosemide [Lasix] 20 mg PO DAILY 30 Days #30 tablet Metoprolol [Lopressor] 12.5 mg PO BID 30 Days #30 tablet Home Medications: Atorvastatin Calcium [Lipitor] 80 mg PO DAILY 08/21/16 [History] Clopidogrel [Plavix] 75 mg PO DAILY 08/21/16 [History] Ferrous Sulfate 325 mg PO BIDWM 08/21/16 [History] Gabapentin [Neurontin] 300 mg PO BID 08/21/16 [History] Lisinopril [Zestril] 10 mg PO DAILY 08/21/16 [History] Magnesium Oxide [Magnesium] 400 mg PO DAILY 08/21/16 [History] Nitroglycerin [Nitrostat] 0.4 mg SL Q5M PRN 08/21/16 [History] Ranitidine HCl [Acid Customer Services Supervisor] 150 mg PO BID 08/21/16 [History] Sertraline [Zoloft] 100 mg PO DAILY 08/21/16 [History] Metformin HCl [Glucophage] 1,000 mg PO BID 03/28/17 [History] Insulin ASPART [NovoLOG] 0 unit SQ TIDWM 06/19/17 [History] Sennosides [Senna] 8.6 mg PO DAILY 06/19/17 [History] Insulin Glargine,Hum.rec.anlog [Raulaglbarney Rodrigues U-100] 60 unit SQ QAM 12/30/17 [History] amLODIPine [Norvasc] 10 mg PO DAILY 30 Days #30 tablet 02/07/18 [Rx] Aspirin 81 mg PO DAILY 30 Days #30 tab.chew 04/22/18 [Rx] Furosemide [Lasix] 20 mg PO DAILY 30 Days #30 tablet 04/22/18 [Rx] Metoprolol [Lopressor] 12.5 mg PO BID 30 Days #30 tablet 04/22/18 [Rx] Allergies/Adverse Reactions: 3 Allergy/AdvReac Type Severity Reaction Status Date / Time Hydromorphone [From Dilaudid] Allergy Palpitation Verified 04/21/18 09:01 s heparin AdvReac See Verified 04/21/18 09:01 Comments Certification: Further, I certify that my clinical findings support that this patient is homebound (i.e. absences from home require considerable and taxing effort and are for medical reasons or samaritan services or infrequently or short duration when for other reasons) because: Homebound Reason: Patient requires assistance of a person or device to safely leave home Attestation: My signature below is to certify that this patient is under my care and that I, or nurse practitioner, or a physician's itinerant teacher assistant working with me, has a face-to -face encounter with this patient.
--- NOTE | 2018-04-24 15:28 | Electrocardiograph Report ---
[address] [place], [place] [address] Test Date: 2018-04-20 Pat Name: Jessenia Mccallum Department: 111 Room: 2NE18 Gender: Mica Plate Layer: UDAY : 1965 Requested By: Matteo Salgado Order Number: [id number] Reading MD: Eric Lauren Measurements Intervals [place] Rate: 61 P: 28 [place]: 142 QRS: 7 QRSD: 92 T: 56 QT: 426 QTc: 429 Interpretive Statements SINUS RHYTHM LOW QRS VOLTAGE IN PRECORDIAL LEADS ST CHANGES SUGGESTIVE OF ISCHEMIA Electronically Signed On 04-24-2018 15:26:12 EDT by Eric Lauren
--- NOTE | 2018-04-24 17:32 | Electrocardiograph Report ---
[address] [place], [place] [address] Test Date: 2018-04-20 Pat Name: Jessenia Mccallum Department: [id number] Room: 2NE18 Gender: F Center Sales And Service Associate: : 1965 Requested By: Charlotte Traore Order Number: [id number] Reading MD: Glenny Farah Measurements Intervals [place] Rate: 96 P: 58 [place]: 132 QRS: 24 QRSD: 94 T: 70 QT: 352 QTc: 445 Interpretive Statements Sinus rhythm Electronically Signed On 04-24-2018 17:31:07 EDT by Glenny Farah
--- NOTE | 2018-04-24 17:35 | Electrocardiograph Report ---
[place] [address] Test Date: 2018-04-20 Pat Name: Jessenia Mccallum Department: [id number] Room: 2NE18 Gender: F Regional Manager: : 1965 Requested By: Stephanie Erwin Order Number: [id number] Reading MD: Glenny Farah Measurements Intervals [place] Rate: 91 P: 28 MD: 138 QRS: 9 QRSD: 95 T: 70 QT: 357 QTc: 440 Interpretive Statements Sinus rhythm Low voltage, precordial leads Borderline ST depression, lateral leads Electronically Signed On 04-24-2018 17:33:16 EDT by Glenny Farah
--- NOTE | 2018-04-24 17:38 | Electrocardiograph Report ---
[address] [place] [address] Test Date: 2018-04-20 Pat Name: Jessenia Mccallum Department: 111 Room: 2NE18 Gender: F Apparatus Repair Mechanic: FREDA : 1965 Requested By: Matteo Saglado Order Number: [id number] Reading MD: Glenny Farah Measurements Intervals [place] Rate: 80 P: 32 [place]: 144 QRS: 6 QRSD: 93 T: 48 QT: 386 QTc: 422 Interpretive Statements SINUS RHYTHM LOW QRS VOLTAGE IN PRECORDIAL LEADS MODERATE ST DEPRESSION Electronically Signed On 04-24-2018 17:36:41 EDT by Glenny Farah
--- NOTE | 2018-04-24 17:49 | Electrocardiograph Report ---
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
--- NOTE | 2018-04-24 18:15 | Electrocardiograph Report ---
[place] [address] Test Date: 2018-04-22 Pat Name: Jessenia Mccallum Department: 111 Room: 2NE18 Gender: F Consulting Group Analyst: [id number] : 1965 Requested By: Bambi Baptiste Order Number: [id number] Reading MD: Glenny Farah Measurements Intervals [place] Rate: 65 P: 34 [place]: 142 QRS: 5 QRSD: 102 T: 0 QT: 402 QTc: 414 Interpretive Statements SINUS RHYTHM LOW QRS VOLTAGE IN PRECORDIAL LEADS NONSPECIFIC T-WAVE ABNORMALITY Electronically Signed On 04-24-2018 18:13:32 EDT by Glenny Farah
== END 2018-04-22 15:43 | disposition home or self-care (01) | DRG 174 ==
LOC: 2NENU 01:25 → EMEROOARM 01:25 → SUATTDRO 04:17 → 2NENU 05:32
PROVIDERS: ADMIT Pediatrics; ATTEND Internal Medicine

== ENCOUNTER 2018-06-25 14:46 | Inpatient (IN) ==
[2018-06-25] MEDS ORDERED: 0.9 % Sodium Chloride 1,000 ML IVC ONE (15:07)
[2018-06-25] MEDS ORDERED: Cefepime HCl 2,000 MG in Water for inj. (sterile) 20 ML 20 ML IVP STA (15:09)
[2018-06-25 15:29] LABS: Bilirubin,Urine Negative (Negative); Blood,Urine Large (Negative); Clarity,Urine Cloudy (Clear); Color,Urine Yellow (Yellow); Glucose,Urine (UA) 250 mg/dL (Normal); Ketones,Urine Negative (Negative); Leukocyte Esterase,Urine Trace (Negative); Nitrite,Urine Negative (Negative); Protein,Urine >=1000 mg/dL (Neg-Trace); Specific Gravity,Urine 1.016 (1.010-1.025); Urobilinogen,Urine Normal (Normal)
[2018-06-25 15:31] LABS: Bacteria,Urine Few per hpf (None-Few); Hyaline Casts,Urine None Seen per lpf (None-Few); RBC,Urine 15-30 per hpf (0-3); Squamous Epithelial Cell,Urine Many per lpf (None-Few); WBC,Urine 50-100 per hpf (0-3)
--- NOTE | 2018-06-25 15:36 | Emergency Department Note ---
Disposition Clinical Impression: Ulcer of right heel, Right foot infection Disposition: Admitted As Inpatient Referrals: Matteo Love MD [Primary Care Provider] - General Adult HPI - General Chief complaint: ED Fever Stated complaint: "sepsis" Time Seen by Provider: 06/25/18 15:00 - History of Present Illness Pain Scale: 10 - Related Data Home Medications Medication Instructions Recorded Confirmed Atorvastatin Calcium [Lipitor] 80 mg PO DAILY 08/21/16 04/20/18 Clopidogrel [Plavix] 75 mg PO DAILY 08/21/16 04/20/18 Ferrous Sulfate 325 mg PO BIDWM 08/21/16 04/20/18 Gabapentin [Neurontin] 300 mg PO BID 08/21/16 04/20/18 Lisinopril [Zestril] 10 mg PO DAILY 08/21/16 04/20/18 Magnesium Oxide [Magnesium] 400 mg PO DAILY 08/21/16 04/20/18 Nitroglycerin [Nitrostat] 0.4 mg SL Q5M PRN 08/21/16 04/20/18 Ranitidine HCl [Acid Sales Route Driver] 150 mg PO BID 08/21/16 04/20/18 Sertraline [Zoloft] 100 mg PO DAILY 08/21/16 04/20/18 Metformin HCl [Glucophage] 1,000 mg PO BID 03/28/17 04/20/18 Insulin ASPART [NovoLOG] 0 unit SQ TIDWM 06/19/17 04/20/18 Sennosides [Senna] 8.6 mg PO DAILY 06/19/17 04/20/18 Insulin Glargine,Hum.rec.anlog 60 unit SQ QAM 12/30/17 04/20/18 [Basaglar Kwikpen U-100] Previous Rx's Medication Instructions Recorded amLODIPine [Norvasc] 10 mg PO DAILY 30 Days #30 tablet 02/07/18 Aspirin 81 mg PO DAILY 30 Days #30 tab.chew 04/22/18 Furosemide [Lasix] 20 mg PO DAILY 30 Days #30 tablet 04/22/18 Metoprolol [Lopressor] 12.5 mg PO BID 30 Days #30 tablet 04/22/18 Allergies Allergy/AdvReac Type Severity Reaction Status Date / Time Hydromorphone [From Dilaudid] Allergy Palpitation Verified 06/25/18 14:52 s heparin AdvReac See Verified 06/25/18 14:52 Comments Past Medical History - Past Medical History Medical history: Reports: CHF, coronary artery disease, diabetes, GERD, hyperlipidemia, hypertension, peripheral artery disease, renal disease Surgical history: Reports: angioplasty/stent, orthopedic, other, other Psychiatric history: Reports: depression EGG PASTEURIZER history: Reports: no EGG PASTEURIZER history - Social History Smoking Status: Current every day smoker Smokeless Tobacco Status: No Alcohol use: Reports: none Drug use: Reports: none Physical Exam - General General appearance: alert, in no apparent distress Course Vital Signs Temperature 102.4 F H 06/25/18 14:50 Pulse Rate 100 06/25/18 14:50 Respiratory Rate 18 06/25/18 14:50 Blood Pressure 145/79 06/25/18 14:50 O2 Sat by Pulse Oximetry 97 06/25/18 14:50 Temperature 102.4 F H 06/25/18 15:27 Pulse Rate 100 06/25/18 15:27 Respiratory Rate 18 06/25/18 15:27 Blood Pressure 145/79 06/25/18 15:27 O2 Sat by Pulse Oximetry 97 06/25/18 15:27 Oxygen Delivery Oxygen Delivery Room Air Medical Decision Making - Lab Data Lab Results 06/25/18 Range/Units 15:20 Urine Color Yellow (Yellow) Urine Clarity Cloudy A (Clear) Urine pH 6.0 (5.0-8.0) pH Units Ur Specific [place] 1.016 (1.010-1.025) Urine Protein >=1000 H (Neg-Trace) mg/dL Urine Glucose (UA) 250 H (Normal) mg/dL Urine Ketones Negative (Negative) mg/dL Urine Blood Large H (Negative) Urine Nitrite Negative (Negative) Urine Bilirubin Negative (Negative) Urine Urobilinogen Normal (Normal) mg/dL Ur Leukocyte Esterase Trace H (Negative) Urine Microscopic RBC 15-30 H (0-3) per hpf Urine Microscopic WBC 50-100 H (0-3) per hpf Ur Squamous Epith Cells Many H (None-Few) per lpf Urine Bacteria Few (None-Few) per hpf Hyaline Casts None Seen (None-Few) per lpf Ur Culture Indicated? NO. A (NO) Attestation Statement - Attestation Attestation: I examined this patient and my medical decision-making was reviewed with the Resident Physician. I agree with the documented findings, disposition and treatment plan as described except to the extent set forth below. 52-year-old female presented to the emergency room for right foot ulcer. Has been ongoing for a while but seems to be getting acutely worse in which she spike temps to 102. Concerns for osteomyelitis. She does follow with podiatry. She denies any urinary complaints or coughing or lung complaints. I feel her fever secondary to her right foot infection. We have ordered medications to cover her for osteomyelitis. We have ordered a foot x-ray as well. Patient will need to be admitted for IV antibiotics and consultation with podiatry.
[2018-06-25 15:42] LABS: Hematocrit 37.1 % (35.3-44.9); Hemoglobin 11.3 g/dL (11.5-15.4); Mean Corpuscular HGB Conc 30.5 g/dL (31.6-35.5); Mean Corpuscular Hemoglobin 24.9 pg (28.0-33.3); Mean Corpuscular Volume 81.7 fL (83.0-100.0); Mean Platelet Volume 9.3 fL (9.4-12.4); Platelet Count 478 K/mcL (140-400); Red Blood Count 4.54 M/mcL (3.82-4.97); Red Cell Distribution Width 16.4 % (11.5-14.5)
--- NOTE | 2018-06-25 15:42 | Emergency Department Note ---
Disposition Clinical Impression: Ulcer of right heel Qualifiers: Non-pressure ulcer stage: unspecified non-pressure ulcer stage Qualified Code(s): L97.419 - Non-pressure chronic ulcer of right heel and midfoot with unspecified severity Osteomyelitis Qualifiers: Osteomyelitis type: unspecified type Osteomyelitis location: foot Laterality: right Qualified Code(s): M86.9 - Osteomyelitis, unspecified Disposition: Admitted As Inpatient Condition: Fair Referrals: Matteo Love MD [Primary Care Provider] - Forms: ED Satisfaction Letter General Adult HPI - General Chief complaint: ED Fever Stated complaint: "sepsis" Time Seen by Provider: 06/25/18 15:00 Source: patient, family Mode of arrival: wheelchair Limitations: no limitations Nursing Notes Reviewed: Yes Vital Signs Reviewed: Yes - History of Present Illness HPI Narrative: 52-year-old female with significant past medical history of insulin-dependent diabetes presenting to the emergency department with chief complaint of concern for osteomyelitis. Patient has had a diabetic ulcer to her right heel for multiple years. Has been seeing wound clinic and podiatry. For the past 2 days she has been feeling weaker than normal. Not wanting to eat. Today she has had fevers and chills with a MAXIMUM TEMPERATURE of 102. She went to the wound clinic today to see Dr. Walker who was concerned that her wound has tracked into her bone and sent her here for further evaluation. Patient denies any chest pain or shortness of breath. Denies any nausea, vomiting or abdominal pain. Pain Scale: 10 - Related Data Home Medications Medication Instructions Recorded Confirmed Atorvastatin Calcium [Lipitor] 80 mg PO DAILY 08/21/16 04/20/18 Clopidogrel [Plavix] 75 mg PO DAILY 08/21/16 04/20/18 Ferrous Sulfate 325 mg PO BIDWM 08/21/16 04/20/18 Gabapentin [Neurontin] 300 mg PO BID 08/21/16 04/20/18 Lisinopril [Zestril] 10 mg PO DAILY 08/21/16 04/20/18 Magnesium Oxide [Magnesium] 400 mg PO DAILY 08/21/16 04/20/18 Nitroglycerin [Nitrostat] 0.4 mg SL Q5M PRN 08/21/16 04/20/18 Ranitidine HCl [Acid Packing House Supervisor] 150 mg PO BID 08/21/16 04/20/18 Sertraline [Zoloft] 100 mg PO DAILY 08/21/16 04/20/18 Metformin HCl [Glucophage] 1,000 mg PO BID 03/28/17 04/20/18 Insulin ASPART [NovoLOG] 0 unit SQ TIDWM 06/19/17 04/20/18 Sennosides [Senna] 8.6 mg PO DAILY 06/19/17 04/20/18 Insulin Glargine,Hum.rec.anlog 60 unit SQ QAM 12/30/17 04/20/18 [Basaglar Kwikpen U-100] Previous Rx's Medication Instructions Recorded amLODIPine [Norvasc] 10 mg PO DAILY 30 Days #30 tablet 02/07/18 Aspirin 81 mg PO DAILY 30 Days #30 tab.chew 04/22/18 Furosemide [Lasix] 20 mg PO DAILY 30 Days #30 tablet 04/22/18 Metoprolol [Lopressor] 12.5 mg PO BID 30 Days #30 tablet 04/22/18 Allergies Allergy/AdvReac Type Severity Reaction Status Date / Time Hydromorphone [From Dilaudid] Allergy Palpitation Verified 06/25/18 14:52 s heparin AdvReac See Verified 06/25/18 14:52 Comments All systems ED: reviewed and negative except as stated. Constitutional: Reports: fever, chills, weakness Eyes: Reports: as per HPI ENT ED: Reports: as per HPI Cardiovascular: Denies: chest pain, palpitations, dyspnea on exertion Respiratory: Denies: cough, dyspnea, wheezes Gastrointestinal: Denies: abdominal pain, nausea, vomiting Genitourinary: Reports: as per HPI Musculoskeletal: Reports: as per HPI Integumentary: Reports: other (Diabetic foot ulcer) Neurological: Reports: as per HPI Psychiatric: Reports: as per HPI Endocrine: Reports: as per HPI Hematological/Lymphatic: Reports: as per HPI Allergic/Immunologic: Reports: as per HPI Past Medical History - Past Medical History Attestation: Yes The following information was validated with the patient. Medical history: Reports: CHF, coronary artery disease, diabetes, GERD, hyper lipidemia, hypertension, peripheral artery disease, renal disease Surgical history: Reports: angioplasty/stent, orthopedic, other, other Psychiatric history: Reports: depression GOPHERMAN history: Reports: no GOPHERMAN history - Social History Smoking Status: Current every day smoker Smokeless Tobacco Status: No Alcohol use: Reports: none Drug use: Reports: none Physical Exam - General Limitations: no limitations General appearance: alert, in no apparent distress - Head Head exam: atraumatic, normocephalic, normal inspection - Eye Eye exam: Present: normal appearance. Absent: scleral icterus, conjunctival injection - ENT ENT exam: normal exam, mucous membranes moist - Neck Neck exam: Present: normal inspection, full ROM. Absent: tenderness, meningismus - Chest Chest inspection: Present: normal inspection, symmetric chest wall rise. Absent: tenderness, rash - Respiratory Respiratory exam: Present: normal lung sounds bilaterally. Absent: respiratory distress, wheezes - Cardiovascular Cardiovascular exam: Present: normal rhythm, tachycardia, normal heart sounds - Abdominal Exam Abdominal exam: Present: soft, Non-Tender. Absent: distention, guarding, rebound - Extremities Exam Extremities exam: Present: other (Large diabetic ulcer noted on the right heel. Redness and foul odor from the site.) - Neurological Exam Neurological exam: Present: alert, oriented X3 - Psychiatric Psychiatric exam: Present: normal affect, normal mood - Skin Skin exam: Present: warm Course Course Narrative: 52-year-old female presenting with concern for osteomyelitis. Patient febrile and tachycardic in the room. Concern for osteophyte from her right foot ulcer. At this time we will perform a sepsis workup and perform a x-ray of the right foot. We will provide the patient with vancomycin and cefepime for possible osteomyelitis coverage. Patient alert and oriented 3. Hemodynamically stable. Disposition most likely admission but pending results. Patient agrees with this plan. - Reevaluation(s) Reevaluation #1: Laboratory analysis shows leukocytosis, chronic kidney disease. X-ray shows possible acute osteomyelitis recommending MRI. At this time due to patient's symptoms and laboratory analysis will plan to admit her for osteomyelitis. Patient remains alert and oriented 3 and hemodynamically stable. I spoke with the hospitalist guncotton packer Dr. Del Castillo who agrees to accept the patient at this time. Patient agrees with this plan. Vital Signs Temperature 102.4 F H 06/25/18 14:50 Pulse Rate 100 06/25/18 14:50 Respiratory Rate 18 06/25/18 14:50 Blood Pressure 145/79 06/25/18 14:50 O2 Sat by Pulse Oximetry 97 06/25/18 14:50 Temperature 102.4 F H 06/25/18 15:27 Pulse Rate 100 06/25/18 15:27 Respiratory Rate 18 06/25/18 15:27 Blood Pressure 145/79 06/25/18 15:27 O2 Sat by Pulse Oximetry 97 06/25/18 15:27 Oxygen Delivery Oxygen Delivery Room Air Medical Decision Making - Lab Data Result diagrams: 06/25/18 15:24 06/25/18 15:24 Lab Results 06/25/18 06/25/18 06/25/18 Range/Units 15:20 15:23 15:24 WBC 23.9 H (4.3-11.1) K/mcL RBC 4.54 (3.82-4.97) M/mcL Hgb 11.3 L (11.5-15.4) g/dL Hct 37.1 (35.3-44.9) % MCV 81.7 L (83.0-100.0) fL MCH 24.9 L (28.0-33.3) pg MCHC 30.5 L (31.6-35.5) g/dL RDW 16.4 H (11.5-14.5) % Plt Count 478 H (140-400) K/mcL MPV 9.3 L (9.4-12.4) fL Immature Gran % Test Not Performed Seg Neutrophils % 83.0 % Band Neutrophils % 14.0 H (0-4) % Lymphocytes % 1.0 % Monocytes % Test Not Performed Eosinophils % 2.0 % Basophils % Test Not Performed Neutrophils # 23.2 H (1.6-8.9) K/mcL Lymphocytes # 0.2 L (0.6-4.6) K/mcL Monocytes # Test Not Performed Eosinophils # 0.5 (0.0-0.6) K/mcL Basophils # Test Not Performed Platelet Estimate Increased H (Normal) Sodium (136-145) mEq/L Potassium (3.5-5.1) mEq/L Chloride (98-107) mEq/L Carbon Dioxide (23-29) mEq/L BUN (6-20) mg/dL Creatinine (0.60-1.20) mg/dL Est GFR ( Amer) (> 60) Est GFR (Non-Af Amer) (> 60) BUN/Creatinine Ratio (6-26) Glucose (70-105) mg/dL Calculated Osmolality (280-300) Lactic Acid 2.3 H (0.5-2.2) mmol/L Calcium (8.6-10.3) mg/dL Magnesium (1.6-2.6) mg/dL Total Bilirubin (0.3-1.0) mg/dL Direct Bilirubin (0.0-0.2) mg/dL Indirect Bilirubin (0.0-1.2) mg/dL AST (13-39) Units/L ALT (7-52) Units/L Alkaline Phosphatase (34-104) Units/L Troponin I (< 0.04) ng/mL Serum Total Protein (6.4-8.9) g/dL Albumin (3.5-5.7) g/dL Globulin (2.4-3.5) g/dL Albumin/Globulin Ratio (1.1-2.2) Urine Color Yellow (Yellow) Urine Clarity Cloudy A (Clear) Urine pH 6.0 (5.0-8.0) pH Units Ur Specific [place] 1.016 (1.010-1.025) Urine Protein >=1000 H (Neg-Trace) mg/dL Urine Glucose (UA) 250 H (Normal) mg/dL Urine Ketones Negative (Negative) mg/dL Urine Blood Large H (Negative) Urine Nitrite Negative (Negative) Urine Bilirubin Negative (Negative) Urine Urobilinogen Normal (Normal) mg/dL Ur Leukocyte Esterase Trace H (Negative) Urine Microscopic RBC 15-30 H (0-3) per hpf Urine Microscopic WBC 50-100 H (0-3) per hpf Ur Squamous Epith Cells Many H (None-Few) per lpf Urine Bacteria Few (None-Few) per hpf Hyaline Casts None Seen (None-Few) per lpf Ur Culture Indicated? NO. A (NO) 06/25/18 Range/Units 15:24 WBC (4.3-11.1) K/mcL RBC (3.82-4.97) M/mcL Hgb (11.5-15.4) g/dL Hct (35.3-44.9) % MCV (83.0-100.0) fL MCH (28.0-33.3) pg MCHC (31.6-35.5) g/dL RDW (11.5-14.5) % Plt Count (140-400) K/mcL MPV (9.4-12.4) fL Immature Gran % Seg Neutrophils % % Band Neutrophils % (0-4) % Lymphocytes % % Monocytes % Eosinophils % % Basophils % Neutrophils # (1.6-8.9) K/mcL Lymphocytes # (0.6-4.6) K/mcL Monocytes # Eosinophils # (0.0-0.6) K/mcL Basophils # Platelet Estimate (Normal) Sodium 130 L (136-145) mEq/L Potassium 4.3 (3.5-5.1) mEq/L Chloride 98 (98-107) mEq/L Carbon Dioxide 21 L (23-29) mEq/L BUN 34 H (6-20) mg/dL Creatinine 1.70 H (0.60-1.20) mg/dL Est GFR ( Amer) 38 L (> 60) Est GFR (Non-Af Amer) 31 L (> 60) BUN/Creatinine Ratio 20 (6-26) Glucose 217 H (70-105) mg/dL Calculated Osmolality 284 (280-300) Lactic Acid (0.5-2.2) mmol/L Calcium 8.8 (8.6-10.3) mg/dL Magnesium 1.6 (1.6-2.6) mg/dL Total Bilirubin 0.4 (0.3-1.0) mg/dL Direct Bilirubin 0.0 (0.0-0.2) mg/dL Indirect Bilirubin 0.4 (0.0-1.2) mg/dL AST 14 (13-39) Units/L ALT 23 (7-52) Units/L Alkaline Phosphatase 176 H (34-104) Units/L Troponin I 0.04 H* (< 0.04) ng/mL Serum Total Protein 8.3 (6.4-8.9) g/dL Albumin 3.0 L (3.5-5.7) g/dL Globulin 5.3 H (2.4-3.5) g/dL Albumin/Globulin Ratio 0.6 L (1.1-2.2) Urine Color (Yellow) Urine Clarity (Clear) Urine pH (5.0-8.0) pH Units Ur Specific [place] (1.010-1.025) Urine Protein (Neg-Trace) mg/dL Urine Glucose (UA) (Normal) mg/dL Urine Ketones (Negative) mg/dL Urine Blood (Negative) Urine Nitrite (Negative) Urine Bilirubin (Negative) Urine Urobilinogen (Normal) mg/dL Ur Leukocyte Esterase (Negative) Urine Microscopic RBC (0-3) per hpf Urine Microscopic WBC (0-3) per hpf Ur Squamous Epith Cells (None-Few) per lpf Urine Bacteria (None-Few) per hpf Hyaline Casts (None-Few) per lpf Ur Culture Indicated? (NO) - EKG Data EKG #1 EKG attestation: Yes I reviewed and interpreted this EKG. EKG results narrative: Sinus rhythm. 98 beats minute. MT interval 127, QRS 81, QTC 445. No sign of acute ST segment elevation or ischemia. Compared to previous EKG completed on 04/22/2018 no significant changes noted
[2018-06-25 15:57] LABS: Albumin/Globulin Ratio 0.6 (1.1-2.2); Bilirubin,Indirect 0.4 mg/dL (0.0-1.2); Bilirubin,Total 0.4 mg/dL (0.3-1.0); Calcium 8.8 mg/dL (8.6-10.3); Globulin 5.3 g/dL (2.4-3.5); Magnesium 1.6 mg/dL (1.6-2.6); Potassium 4.3 mEq/L (3.5-5.1); Total Protein 8.3 g/dL (6.4-8.9)
[2018-06-25 16:03] LABS: Troponin I 0.04 ng/mL (< 0.04)
[2018-06-25 16:17] LABS: Lymphocytes # 0.2 K/mcL (0.6-4.6); Neutrophils # 23.2 K/mcL (1.6-8.9)
[2018-06-25 16:18] LABS: Eosinophils # 0.5 K/mcL (0.0-0.6); Platelet Estimate Increased (Normal)
--- NOTE | 2018-06-25 16:33 | General Surgery Consult Note ---
Date of Encounter: 06/25/18 Time of Encounter: 16:20 Assessment and Plan (1) Osteomyelitis of right foot Current Visit: Yes Status: Acute The patient has osteomyelitis of the right calcaneus. This is not a salvageable wound. I counseled her on the right below-knee amputation. We will proceed with right below-knee amputation tomorrow after appropriate treatment with antibiotic therapy nothing by mouth after midnight please Qualifiers: Osteomyelitis type: other chronic Qualified Code(s): M86.671 - Other chronic osteomyelitis, right ankle and foot History of Present Illness Consult date: 06/25/18 Reason for consult: other (Osteomyelitis right calcaneus) Requesting physician: Fredrick Oneil History of present illness: The patient is a morbidly obese 52-year-old female who has battled diabetes for many years. She is also battled difficulty with severe diabetic peripheral neuropathy. This has resulted in chronic open wounds on the right lower extremity. This is been treated aggressively in wound care. She presents today with shakes chills fever and malaise. She has evidence of osteomyelitis of the right calcaneus. This represents failure of wound care therapy. I was asked by my podiatry colleagues Dr. Walker and Dr. Paul to evaluate the patient for right below-knee amputation. 6 cm of calcaneus is exposed and purulent with significant tracking along the plantar fascia. The wound is not salvageable. I shared this information with the patient she had already come to the conclusion that she would require right below-knee amputation. We will plan right below-knee amputation 06/26/2018 Past Med Surg Social Fam HX - Past Medical History Medical history: CHF, coronary artery disease, diabetes, GERD, hyperlipidemia, hypertension, peripheral artery disease, renal disease Psychiatric history: depression - Past Surgical History Surgical History: angioplasty/stent, orthopedic, other, other Additional surgical history: right foot surgery, tubes tied. - Social History Smoking Status: Current every day smoker Smokeless Tobacco Status: No Alcohol use: none Drug use: none - Family History Mother Family Member Ethnicity: Non- Living Status: Still Living Hx Family Cardiac Disorders: Yes Hx Family Endocrine Disorder: Yes (type 2 diabetes) Father Family Member Ethnicity: Non- Living Status: Still Living Hx Family Endocrine Disorder: Yes (type 2 diabetes) Medications and Allergies Atorvastatin Calcium [Lipitor] 80 mg PO DAILY 08/21/16 [History] Clopidogrel [Plavix] 75 mg PO DAILY 08/21/16 [History] Ferrous Sulfate 325 mg PO BIDWM 08/21/16 [History] Gabapentin [Neurontin] 300 mg PO BID 08/21/16 [History] Lisinopril [Zestril] 10 mg PO DAILY 08/21/16 [History] Magnesium Oxide [Magnesium] 400 mg PO DAILY 08/21/16 [History] Nitroglycerin [Nitrostat] 0.4 mg SL Q5M PRN 08/21/16 [History] Ranitidine HCl [Acid Business Assistant] 150 mg PO BID 08/21/16 [History] Sertraline [Zoloft] 100 mg PO DAILY 08/21/16 [History] Metformin HCl [Glucophage] 1,000 mg PO BID 03/28/17 [History] Insulin ASPART [NovoLOG] 0 unit SQ TIDWM 06/19/17 [History] Sennosides [Senna] 8.6 mg PO DAILY 06/19/17 [History] Insulin Glargine,Hum.rec.anlog [Basaglar Kwikpen U-100] 60 unit SQ QAM 12/30/17 [History] amLODIPine [Norvasc] 10 mg PO DAILY 30 Days #30 tablet 02/07/18 [Rx] Aspirin 81 mg PO DAILY 30 Days #30 tab.chew 04/22/18 [Rx] Furosemide [Lasix] 20 mg PO DAILY 30 Days #30 tablet 04/22/18 [Rx] Metoprolol [Lopressor] 12.5 mg PO BID 30 Days #30 tablet 04/22/18 [Rx] Allergy/AdvReac Type Severity Reaction Status Date / Time Hydromorphone [From Dilaudid] Allergy Palpitation Verified 06/25/18 14:52 s heparin AdvReac See Verified 06/25/18 14:52 Comments Review of Systems All systems PM: reviewed and no additional remarkable complaints except as stated All systems PM: The remainder of the systems were reviewed and are negative General Surgery Exam Initial Vital Signs Temp Pulse Resp BP Pulse Ox 102.4 F H 100 18 145/79 97 06/25/18 14:50 06/25/18 14:50 06/25/18 14:50 06/25/18 14:50 06/25/18 14:50 - General physical appearance well developed, well nourished, no distress, obese - Respiratory normal expansion, normal respiratory effort, clear to percussion, clear to auscultation - Cardiovascular Cardiovascular exam: Present: RRR, 15, 16 - Abdomen Abdomen general surgery: Present: bowel sounds present, soft, non tender - Neurologic Present: CN 2-12 grossly intact, other (The patient has profound bilateral lower extremity peripheral neuropathy with sensory deficit) - Psychiatric Psychiatric general surgery: Present: appropriate, oriented to person, oriented to place, oriented to time, speech is normal, memory intact - Additional Findings The patient has a open area on the right heel with 6 cm of calcaneus exposed the periosteum is purulent and there is a significant track along the plantar fascia Exam Initial Vital Signs Temp Pulse Resp BP Pulse Ox 102.4 F H 100 18 145/79 97 06/25/18 14:50 06/25/18 14:50 06/25/18 14:50 06/25/18 14:50 06/25/18 14:50 Results - Labs 06/25/18 15:24 06/25/18 15:24 Abnormal lab results WBC 23.9 K/mcL (4.3-11.1) H 06/25/18 15:24 Hgb 11.3 g/dL (11.5-15.4) L 06/25/18 15:24 MCV 81.7 fL (83.0-100.0) L 06/25/18 15:24 MCH 24.9 pg (28.0-33.3) L 06/25/18 15:24 MCHC 30.5 g/dL (31.6-35.5) L 06/25/18 15:24 RDW 16.4 % (11.5-14.5) H 06/25/18 15:24 Plt Count 478 K/mcL (140-400) H 06/25/18 15:24 MPV 9.3 fL (9.4-12.4) L 06/25/18 15:24 Band Neutrophils % 14.0 % (0-4) H 06/25/18 15:24 Neutrophils # 23.2 K/mcL (1.6-8.9) H 06/25/18 15:24 Lymphocytes # 0.2 K/mcL (0.6-4.6) L 06/25/18 15:24 Platelet Estimate Increased (Normal) H 06/25/18 15:24 Sodium 130 mEq/L (136-145) L 06/25/18 15:24 Carbon Dioxide 21 mEq/L (23-29) L 06/25/18 15:24 BUN 34 mg/dL (6-20) H 06/25/18 15:24 Creatinine 1.70 mg/dL (0.60-1.20) H 06/25/18 15:24 Est GFR ( Amer) 38 (> 60) L 06/25/18 15:24 Est GFR (Non-Af Amer) 31 (> 60) L 06/25/18 15:24 Glucose 217 mg/dL (70-105) H 06/25/18 15:24 Lactic Acid 2.3 mmol/L (0.5-2.2) H 06/25/18 15:23 Alkaline Phosphatase 176 Units/L (34-104) H 06/25/18 15:24 Troponin I 0.04 ng/mL (< 0.04) H* 06/25/18 15:24 Albumin 3.0 g/dL (3.5-5.7) L 06/25/18 15:24 Globulin 5.3 g/dL (2.4-3.5) H 06/25/18 15:24 Albumin/Globulin Ratio 0.6 (1.1-2.2) L 06/25/18 15:24 Urine Clarity Cloudy (Clear) A 06/25/18 15:20 Urine Protein >=1000 mg/dL (Neg-Trace) H 06/25/18 15:20 Urine Glucose (UA) 250 mg/dL (Normal) H 06/25/18 15:20 Urine Blood Large (Negative) H 06/25/18 15:20 Ur Leukocyte Esterase Trace (Negative) H 06/25/18 15:20 Urine Microscopic RBC 15-30 per hpf (0-3) H 06/25/18 15:20 Urine Microscopic WBC 50-100 per hpf (0-3) H 06/25/18 15:20 Ur Squamous Epith Cells Many per lpf (None-Few) H 06/25/18 15:20 Ur Culture Indicated? NO. (NO) A 06/25/18 15:20 Diabetes panel 06/25/18 Range/Units 15:24 Sodium 130 L (136-145) mEq/L Potassium 4.3 (3.5-5.1) mEq/L Chloride 98 (98-107) mEq/L Carbon Dioxide 21 L (23-29) mEq/L BUN 34 H (6-20) mg/dL Creatinine 1.70 H (0.60-1.20) mg/dL Glucose 217 H (70-105) mg/dL Calcium 8.8 (8.6-10.3) mg/dL AST 14 (13-39) Units/L ALT 23 (7-52) Units/L Alkaline Phosphatase 176 H (34-104) Units/L Albumin 3.0 L (3.5-5.7) g/dL Calcium panel 06/25/18 Range/Units 15:24 Calcium 8.8 (8.6-10.3) mg/dL Albumin 3.0 L (3.5-5.7) g/dL Pituitary panel 06/25/18 Range/Units 15:24 Sodium 130 L (136-145) mEq/L Potassium 4.3 (3.5-5.1) mEq/L Chloride 98 (98-107) mEq/L Carbon Dioxide 21 L (23-29) mEq/L BUN 34 H (6-20) mg/dL Creatinine 1.70 H (0.60-1.20) mg/dL Glucose 217 H (70-105) mg/dL Calcium 8.8 (8.6-10.3) mg/dL Adrenal panel 06/25/18 Range/Units 15:24 Sodium 130 L (136-145) mEq/L Potassium 4.3 (3.5-5.1) mEq/L Chloride 98 (98-107) mEq/L Carbon Dioxide 21 L (23-29) mEq/L BUN 34 H (6-20) mg/dL Creatinine 1.70 H (0.60-1.20) mg/dL Glucose 217 H (70-105) mg/dL Calcium 8.8 (8.6-10.3) mg/dL Total Bilirubin 0.4 (0.3-1.0) mg/dL AST 14 (13-39) Units/L ALT 23 (7-52) Units/L Alkaline Phosphatase 176 H (34-104) Units/L Albumin 3.0 L (3.5-5.7) g/dL All other labs normal. Consult Discharge Plan - Plan Referrals: Matteo Love MD [Primary Care Provider] -
--- NOTE | 2018-06-25 18:30 | Internal Med History&Physical ---
Date of Encounter: 06/25/18 Time of Encounter: 18:27 Internal Medicine - H&P: HPI Chief complaint: R foot wound Admitted From: Home Plans for Post Hospital Care: Home History of present illness: Ms. Mccallum is a 52 year old female with past medical history of DM-II, diabetic neuropathy, CHF, HTN, HLD, CAD, CVA, MA s/p stent, CKD, obesity, smoker 1PPD x 30 years. Pt reports having fever and chills at [facility]. States she has had issues with diabetic ulcers for about 7 years and most especially on the same foot. Pt sent from wound clinic due to osteomyelitis of the right calcaneus. She denies CP or SOB. She denies N/V or diarrhea. In ED WBC 23.9, Hgb 11.3, plt 4178. Na 130, BUN 34, Cr. 1.70. Troponin 0.04 Urine analysis with many sq epi X ray foot XR/XR foot 3V RT IMPRESSION: Chronic soft tissue defect/ulcer along the heel of the foot. Underlying heterogeneity of the calcaneus persists. This could reflect acute on chronic osteomyelitis. Consideration should be given to contrast-enhanced MRI. Past Med Surg Social Fam HX - Past Medical History Medical history: CHF, coronary artery disease, diabetes, GERD, hyperlipidemia, hypertension, peripheral artery disease, renal disease Psychiatric history: depression - Past Surgical History Surgical History: angioplasty/stent, orthopedic, other, other Additional surgical history: right foot surgery, tubes tied. - Social History Smoking Status: Current every day smoker Smokeless Tobacco Status: No Alcohol use: none Drug use: none - Family History Mother Family Member Ethnicity: Non- Living Status: Still Living Hx Family Cardiac Disorders: Yes Hx Family Endocrine Disorder: Yes (type 2 diabetes) Father Family Member Ethnicity: Non- Living Status: Still Living Hx Family Endocrine Disorder: Yes (type 2 diabetes) Internal Medicine - H&P: Meds Atorvastatin Calcium [Lipitor] 80 mg PO DAILY 08/21/16 [History] Clopidogrel [Plavix] 75 mg PO DAILY 08/21/16 [History] Ferrous Sulfate 325 mg PO BIDWM 08/21/16 [History] Gabapentin [Neurontin] 300 mg PO BID 08/21/16 [History] Lisinopril [Zestril] 10 mg PO DAILY 08/21/16 [History] Magnesium Oxide [Magnesium] 400 mg PO DAILY 08/21/16 [History] Nitroglycerin [Nitrostat] 0.4 mg SL Q5M PRN 08/21/16 [History] Ranitidine HCl [Acid Wood Boat Builder Supervisor] 150 mg PO BID 08/21/16 [History] Sertraline [Zoloft] 100 mg PO DAILY 08/21/16 [History] Metformin HCl [Glucophage] 1,000 mg PO BID 03/28/17 [History] Insulin ASPART [NovoLOG] 0 unit SQ TIDWM 06/19/17 [History] Sennosides [Senna] 8.6 mg PO DAILY 06/19/17 [History] Insulin Glargine,Hum.rec.anlog [Basaglar Kwikpen U-100] 60 unit SQ QAM 12/30/17 [History] amLODIPine [Norvasc] 10 mg PO DAILY 30 Days #30 tablet 02/07/18 [Rx] Aspirin 81 mg PO DAILY 30 Days #30 tab.chew 04/22/18 [Rx] Furosemide [Lasix] 20 mg PO DAILY 30 Days #30 tablet 04/22/18 [Rx] Metoprolol [Lopressor] 12.5 mg PO BID 30 Days #30 tablet 04/22/18 [Rx] Allergy/AdvReac Type Severity Reaction Status Date / Time Hydromorphone [From Dilaudid] Allergy Palpitation Verified 06/25/18 14:52 s heparin AdvReac See Verified 06/25/18 14:52 Comments All Systems PM: A 10-system review of systems was performed and is negative for pertinent findings except as documented above in the HPI. - Constitutional Vitals: Temp Pulse Resp BP Pulse Ox 102.4 F H 89 18 128/67 98 06/25/18 15:27 06/25/18 17:46 06/25/18 17:46 06/25/18 17:46 06/25/18 17:46 General appearance: Present: A&O X 3, morbidly obese, no acute distress Exam: . - Head Head exam: Present: atraumatic, normocephalic - Eye Eye exam: Present: PERRL, conjuntiva pink, sclera anicteric Pupils: Present: PERRL - Neck Neck exam general surgery: Present: supple, trachea midline. Absent: lymphadenopathy - Respiratory Respiratory exam: Present: CTAB. Absent: accessory muscle use, rales, rhonchi, wheezes - Cardiovascular Cardiovascular exam: Present: RRR, +S1, +S2. Absent: diastolic murmur, gallop, rubs, systolic murmur - GI/Abdominal GI/Abdominal exam: Present: normal bowel sounds, soft, no peritoneal signs. Absent: distended, tenderness - Extremities Exam Extremities exam: Present: pedal edema, warm, radial pulses palpable and symmetrical. Absent: calf tenderness, cyanotic Additional comments: Right calcanea, RLE erythema and induration. Pain with palpation - Neurological Exam Neurological exam: Present: CN II-XII intact, oriented X3, no focal deficits. Absent: pronater drift, facial droop, speech deficit - Skin Skin exam: Present: dry, intact Internal Med - H&P Results - Labs CBC & Chem 7: 06/26/18 01:01 06/26/18 01:01 Labs: Short CBC 06/25/18 Range/Units 15:24 WBC 23.9 H (4.3-11.1) K/mcL Hgb 11.3 L (11.5-15.4) g/dL Hct 37.1 (35.3-44.9) % Plt Count 478 H (140-400) K/mcL Neutrophils # 23.2 H (1.6-8.9) K/mcL BMP 06/25/18 15:24 Sodium 130 L Potassium 4.3 Chloride 98 Carbon Dioxide 21 L BUN 34 H Creatinine 1.70 H Glucose 217 H Calcium 8.8 Cardiac Enzymes 06/25/18 Range/Units 15:24 Troponin I 0.04 H* (< 0.04) ng/mL Liver Function 06/25/18 Range/Units 15:24 Total Bilirubin 0.4 (0.3-1.0) mg/dL Direct Bilirubin 0.0 (0.0-0.2) mg/dL AST 14 (13-39) Units/L ALT 23 (7-52) Units/L Alkaline Phosphatase 176 H (34-104) Units/L Albumin 3.0 L (3.5-5.7) g/dL Urine 06/25/18 Range/Units 15:20 Urine Color Yellow (Yellow) Urine Clarity Cloudy A (Clear) Urine pH 6.0 (5.0-8.0) pH Units Ur Specific [place] 1.016 (1.010-1.025) Urine Protein >=1000 H (Neg-Trace) mg/dL Urine Glucose (UA) 250 H (Normal) mg/dL - Impressions ITS Impressions Foot X-Ray 06/25/18 15:09 IMPRESSION: Chronic soft tissue defect/ulcer along the heel of the foot. Underlying heterogeneity of the calcaneus persists. This could reflect acute on chronic osteomyelitis. Consideration should be given to contrast-enhanced MRI. D/ / James Moss / James Moss Interpreting Provider: James Moss - Assessment and plan (1) Sepsis Current Visit: No Status: Acute Assessment and plan: Meets due to fever and leukocytosis Ordering Vanc and Zosyn Will monitor CBC daily Prelim blood cultures growing gram positive cocci and gram neg jose alejandro. Will continue IVF Qualifiers: Sepsis type: sepsis due to unspecified organism Qualified Code(s): A41.9 - Sepsis, unspecified organism (2) Osteomyelitis of right foot Current Visit: Yes Status: Acute Assessment and plan: Surgery consulted to see. Already aware of the patient as pt was sent form wound clinic Qualifiers: Osteomyelitis type: other chronic Qualified Code(s): M86.671 - Other chronic osteomyelitis, right ankle and foot (3) Type 2 diabetes mellitus Current Visit: No Status: Chronic Assessment and plan: Levemir and SSI. Metformin Qualifiers: Diabetes mellitus skilled nursing insulin use: with skilled nursing use Diabetes mellitus complication status: with hyperglycemia Qualified Code(s): E11.65 - Type 2 diabetes mellitus with hyperglycemia; Z79.4 - assisted (current) use of insulin (4) Leukocytosis Current Visit: Yes Status: Acute Assessment and plan: WBC 23.9. IV antibiotic ordered. Will monitor CBC daily. Qualifiers: Qualified Code(s): D72.829 - Elevated white blood cell count, unspecified (5) Hypertension Current Visit: No Status: Chronic Assessment and plan: Norvasc, Lisinopril, and metorpolol Qualifiers: Hypertension type: essential hypertension Qualified Code(s): I10 - Essential (primary) hypertension (6) Acute kidney injury superimposed on chronic kidney disease Current Visit: Yes Status: Acute Assessment and plan: REMY/CKD Consulting nephrology (7) Hyponatremia Current Visit: No Status: Chronic Assessment and plan: Na 130. Will give IVF - Time Spent With Patient Total time spent is greater than 50% in coordination of care (as documented) at patient's floor/unit and/or counseling patient: less than 15 minutes
[2018-06-25] MEDS ORDERED: Acetaminophen 325 MG TABLET PO PRN (18:37)
[2018-06-25] MEDS ORDERED: Naloxone 0.4 MG/ML INJ IVP PRN (18:37)
[2018-06-25] MEDS ORDERED: Nitroglycerin 0.4 MG TAB.SUBL SL PRN (18:43)
[2018-06-25] MEDS ORDERED: *HR* Dextrose 50 % in Water (Syg) 50 ML SYRINGE IVP PRN (18:45)
[2018-06-25] MEDS ORDERED: Dextrose Gel 15 GM/37.5 ML TUBE PO PRN ×2 (18:45)
[2018-06-25] MEDS ORDERED: D5% in Water 1,000 ML IVC PRN (18:45)
[2018-06-25] MEDS: Gabapentin 300 MG CAPSULE PO SCH (22:27)
[2018-06-25] MEDS: Famotidine 20 MG TABLET PO SCH (22:27)
[2018-06-25] MEDS: 0.9 % Sodium Chloride 1,000 ML IVC SCH (22:38)
[2018-06-26] MEDS: Piperacillin/Tazobactam 3.375 GM in 0.9 % Sodium Chloride Mini Bag 100 ML IVPB SCH ×3 (01:07→15:15)
[2018-06-26 01:20] LABS: Basophils % 0.2 %; Eosinophils % 0.8 %; Red Cell Distribution Width 16.6 % (11.5-14.5)
[2018-06-26 01:22] LABS: Eosinophils # 0.2 K/mcL (0.0-0.6); Hematocrit 28.3 % (35.3-44.9); Hemoglobin 8.8 g/dL (11.5-15.4); Immature Granulocytes % 0.7 % (0-4); Lymphocytes # 0.8 K/mcL (0.6-4.6); Lymphocytes % 2.9 %; Mean Corpuscular HGB Conc 31.1 g/dL (31.6-35.5); Mean Corpuscular Hemoglobin 25.6 pg (28.0-33.3); Mean Corpuscular Volume 82.3 fL (83.0-100.0); Mean Platelet Volume 9.7 fL (9.4-12.4); Monocytes # 0.5 K/mcL (0.0-1.3); Monocytes % 1.8 %; Neutrophils # 24.4 K/mcL (1.6-8.9); Platelet Count 440 K/mcL (140-400); Red Blood Count 3.44 M/mcL (3.82-4.97); Segmented Neutrophils % 93.6 %
[2018-06-26 01:23] LABS: Basophils # 0.1 K/mcL (0.0-0.2)
[2018-06-26 01:32] LABS: Potassium 4.4 mEq/L (3.5-5.1)
[2018-06-26 04:26] LABS: Acinetobacter baumannii by PCR Not Detected (Not Detect); Candida albicans by PCR Not Detected (Not Detect); Candida glabrata by PCR Not Detected (Not Detect); Candida krusei by PCR Not Detected (Not Detect); Candida parapsilosis by PCR Not Detected (Not Detect); Enterobacter cloacae Cmplx PCR Not Detected (Not Detect); Enterobacteriaceae by PCR Not Detected (Not Detect); Enterococcus by PCR Not Detected (Not Detect); Escherichia coli by PCR Not Detected (Not Detect); Klebsiella oxytoca by PCR Not Detected (Not Detect); Klebsiella pneumoniae by PCR Not Detected (Not Detect); Proteus by PCR Not Detected (Not Detect); Pseudomonas aeruginosa by PCR Not Detected (Not Detect); Serratia marcescens by PCR Not Detected (Not Detect); Staphylococcus aureus by PCR Not Detected (Not Detect); Staphylococcus by PCR Not Detected (Not Detect); Streptococcus pneumoniae PCR Not Detected (Not Detect); Streptococcus pyogenes (A) PCR Not Detected (Not Detect); blaKPC Carbapenem-Resist Gene Not Detected (Not Detect); mecA Methicillin-Resist Gene Not Detected (Not Detect); vanA/B Vancomycin-Resist Genes Not Detected (Not Detect)
[2018-06-26 04:27] LABS: Candida tropicalis by PCR Not Detected (Not Detect); Streptococcus agalactiae(B)PCR DETECTED (Not Detect); Streptococcus by PCR DETECTED (Not Detect)
--- NOTE | 2018-06-26 07:30 | Podiatry Consult Note ---
Date of Encounter: 06/26/18 Time of Encounter: 07:28 Assessment and Plan (1) Leukocytosis Current visit: Yes Status: Acute 1. Surgical debridement vs amputation recommended for control of sepsis and infection. 2. Dr. Bell to take patient for BKA today, Podiatry agrees with this plan. Qualifiers: Qualified Code(s): D72.829 - Elevated white blood cell count, unspecified (2) Osteomyelitis of right foot Current visit: Yes Status: Acute 1. Patient with history of osteomyelitis of the right heel now with exposed calcaneus to the entire wound. The limb is not salvagable at this point. BKA planned for today with Dr. Bell. Continue IV antibiotics as scheduled. Qualifiers: Osteomyelitis type: other chronic Qualified Code(s): M86.671 - Other chronic osteomyelitis, right ankle and foot History of Present Illness Chief complaint: Right foot ulcer HPI: Ms. Mccallum is a 52 year old female who presented yesterday to Dr. Walker's wound care clinic with a chronic right foot ulcer and chronic osteomyelitis of the calcaneus. Upon admission to [facility], she reported nausea, fever, chills, and overall fatigue. She also reported increased drainage from the wound. At this point she has failed local wound care options and the extent of surgical debridement required would leave her with a limb that could not bear weight. The patient was evaluated by Dr. Bell with Gen. surgery, and the patient would like to proceed with below-knee amputation. Past Med Surg Social Fam HX - Past Medical History Medical history: CHF, coronary artery disease, diabetes, GERD, hyperlipidemia, hypertension, peripheral artery disease, renal disease Psychiatric history: depression - Past Surgical History Surgical History: angioplasty/stent, orthopedic, other, other Additional surgical history: right foot surgery, tubes tied. - Social History Smoking Status: Current every day smoker Smokeless Tobacco Status: No Alcohol use: none Drug use: none - Family History Mother Family Member Ethnicity: Non- Living Status: Still Living Hx Family Cardiac Disorders: Yes Hx Family Endocrine Disorder: Yes (type 2 diabetes) Father Family Member Ethnicity: Non- Living Status: Still Living Hx Family Endocrine Disorder: Yes (type 2 diabetes) Medications and Allergies Atorvastatin Calcium [Lipitor] 80 mg PO DAILY 08/21/16 [History] Clopidogrel [Plavix] 75 mg PO DAILY 08/21/16 [History] Ferrous Sulfate 325 mg PO BIDWM 08/21/16 [History] Gabapentin [Neurontin] 300 mg PO BID 08/21/16 [History] Lisinopril [Zestril] 10 mg PO DAILY 08/21/16 [History] Magnesium Oxide [Magnesium] 400 mg PO DAILY 08/21/16 [History] Nitroglycerin [Nitrostat] 0.4 mg SL Q5M PRN 08/21/16 [History] Ranitidine HCl [Acid Game Bird Farmer] 150 mg PO BID 08/21/16 [History] Sertraline [Zoloft] 100 mg PO DAILY 08/21/16 [History] Metformin HCl [Glucophage] 1,000 mg PO BID 03/28/17 [History] Insulin ASPART [NovoLOG] 0 unit SQ TIDWM 06/19/17 [History] Sennosides [Senna] 8.6 mg PO DAILY 06/19/17 [History] Insulin Glargine,Hum.rec.anlog [Basaglar Kwikpen U-100] 60 unit SQ QAM 12/30/17 [History] amLODIPine [Norvasc] 10 mg PO DAILY 30 Days #30 tablet 02/07/18 [Rx] Aspirin 81 mg PO DAILY 30 Days #30 tab.chew 04/22/18 [Rx] Furosemide [Lasix] 20 mg PO DAILY 30 Days #30 tablet 04/22/18 [Rx] Metoprolol [Lopressor] 12.5 mg PO BID 30 Days #30 tablet 04/22/18 [Rx] Allergy/AdvReac Type Severity Reaction Status Date / Time Hydromorphone [From Dilaudid] Allergy Palpitation Verified 06/25/18 14:52 s heparin AdvReac See Verified 06/25/18 14:52 Comments All Systems Reviewed: The remainder of the systems were reviewed and are negative Physical Exam - Constitutional Vitals: Temp Pulse Resp BP Pulse Ox 99.4 F 70 15 135/69 96 06/26/18 05:01 06/26/18 06:44 06/26/18 06:44 06/26/18 06:44 06/26/18 06:44 Exam: Vascular: DP and PT palpable bilateral. Skin temperature warm to touch right foot. Pedal hair absent. Capillary refill brisk to toes. Dermatology: Right posterior heel ulcer with mild drainage, 6cm x 3cm with exp osed calcaneus. The wound was tracking distal to the level of bone at the midfoot. Mild erythema of the heel. Musculoskeletal: Limited muscle strength in plantarflexion right lower extremity. Neuro: Sensations diminished bilaterally. Results - Labs Result Diagrams: 06/26/18 01:01 06/26/18 01:01 Labs: Abnormal lab results WBC 26.1 K/mcL (4.3-11.1) H 06/26/18 01:01 RBC 3.44 M/mcL (3.82-4.97) L 06/26/18 01:01 Hgb 8.8 g/dL (11.5-15.4) L D 06/26/18 01:01 Hct 28.3 % (35.3-44.9) L 06/26/18 01:01 MCV 82.3 fL (83.0-100.0) L 06/26/18 01:01 MCH 25.6 pg (28.0-33.3) L 06/26/18 01:01 MCHC 31.1 g/dL (31.6-35.5) L 06/26/18 01:01 RDW 16.6 % (11.5-14.5) H 06/26/18 01:01 Plt Count 440 K/mcL (140-400) H 06/26/18 01:01 Band Neutrophils % 14.0 % (0-4) H 06/25/18 15:24 Neutrophils # 24.4 K/mcL (1.6-8.9) H 06/26/18 01:01 Platelet Estimate Slight increase (Normal) H 06/26/18 01:01 Sodium 126 mEq/L (136-145) L 06/26/18 01:01 Carbon Dioxide 18 mEq/L (23-29) L 06/26/18 01:01 BUN 38 mg/dL (6-20) H 06/26/18 01:01 Creatinine 1.89 mg/dL (0.60-1.20) H 06/26/18 01:01 Est GFR ( Amer) 34 (> 60) L 06/26/18 01:01 Est GFR (Non-Af Amer) 28 (> 60) L 06/26/18 01:01 Glucose 399 mg/dL (70-105) H 06/26/18 01:01 Calcium 8.0 mg/dL (8.6-10.3) L 06/26/18 01:01 Alkaline Phosphatase 176 Units/L (34-104) H 06/25/18 15:24 Troponin I 0.04 ng/mL (< 0.04) H* 06/26/18 01:01 Albumin 3.0 g/dL (3.5-5.7) L 06/25/18 15:24 Globulin 5.3 g/dL (2.4-3.5) H 06/25/18 15:24 Albumin/Globulin Ratio 0.6 (1.1-2.2) L 06/25/18 15:24 Urine Clarity Cloudy (Clear) A 06/25/18 15:20 Urine Protein >=1000 mg/dL (Neg-Trace) H 06/25/18 15:20 Urine Glucose (UA) 250 mg/dL (Normal) H 06/25/18 15:20 Urine Blood Large (Negative) H 06/25/18 15:20 Ur Leukocyte Esterase Trace (Negative) H 06/25/18 15:20 Urine Microscopic RBC 15-30 per hpf (0-3) H 06/25/18 15:20 Urine Microscopic WBC 50-100 per hpf (0-3) H 06/25/18 15:20 Ur Squamous Epith Cells Many per lpf (None-Few) H 06/25/18 15:20 Ur Culture Indicated? NO. (NO) A 06/25/18 15:20 Streptococcus sp PCR DETECTED (Not Detect) A 06/25/18 15:24 Group B Strep (PCR) DETECTED (Not Detect) A 06/25/18 15:24 H & H 06/25/18 06/26/18 Range/Units 15:24 01:01 Hgb 11.3 L 8.8 L D (11.5-15.4) g/dL Hct 37.1 28.3 L (35.3-44.9) % All other labs normal. Consult Discharge Plan - Plan Additional Instructions: 1. Podiatry will sign off. 2. Follow up with Dr. Bell following the amputation. 3. Follow up as needed for the left foot with Dr. Walker. Referrals: [facility] [place],Matteo Velez MD [Primary Care Provider] -
[2018-06-26] MEDS: Insulin LISPRO 300 UNITS/3 ML VIAL SQ SCH ×3 (08:10→15:24)
[2018-06-26] MEDS: Gabapentin 300 MG CAPSULE PO SCH (08:14)
[2018-06-26] MEDS: Famotidine 20 MG TABLET PO SCH ×2 (08:14→15:24)
[2018-06-26] MEDS ORDERED: Aspirin 81 MG TAB.CHEW PO SCH (09:00)
[2018-06-26] MEDS ORDERED: NON-FORMULARY MEDICATION 1 EACH EACH (Insulin Glargine,Hum.Rec.Anlog [Basaglar Kwikpen U-1 SQ SCH (09:00)
[2018-06-26] MEDS ORDERED: Sennosides 8.6 MG TABLET PO SCH (09:00)
[2018-06-26] MEDS ORDERED: Insulin DETEMIR 100 UNIT/ML X5UNITS SQ SCH (09:00)
[2018-06-26] MEDS ORDERED: amLODIPine 5 MG TABLET PO SCH (09:00)
[2018-06-26] MEDS ORDERED: Magnesium Oxide 400 MG TABLET PO SCH (09:00)
[2018-06-26] MEDS ORDERED: Furosemide 20 MG TABLET PO SCH (09:00)
[2018-06-26] MEDS: 0.9 % Sodium Chloride 1,000 ML IVC SCH (11:34)
[2018-06-26 13:30] LABS: Acinetobacter baumannii by PCR Not Detected (Not Detect); Candida albicans by PCR Not Detected (Not Detect); Candida glabrata by PCR Not Detected (Not Detect); Candida krusei by PCR Not Detected (Not Detect); Candida parapsilosis by PCR Not Detected (Not Detect); Candida tropicalis by PCR Not Detected (Not Detect); Enterobacter cloacae Cmplx PCR Not Detected (Not Detect); Enterobacteriaceae by PCR DETECTED (Not Detect); Enterococcus by PCR Not Detected (Not Detect); Escherichia coli by PCR Not Detected (Not Detect); Klebsiella oxytoca by PCR Not Detected (Not Detect); Klebsiella pneumoniae by PCR Not Detected (Not Detect); Proteus by PCR DETECTED (Not Detect); Pseudomonas aeruginosa by PCR Not Detected (Not Detect); Serratia marcescens by PCR Not Detected (Not Detect); Staphylococcus aureus by PCR Not Detected (Not Detect); Staphylococcus by PCR Not Detected (Not Detect); Streptococcus agalactiae(B)PCR Not Detected (Not Detect); Streptococcus by PCR Not Detected (Not Detect); Streptococcus pneumoniae PCR Not Detected (Not Detect); Streptococcus pyogenes (A) PCR Not Detected (Not Detect); blaKPC Carbapenem-Resist Gene Not Detected (Not Detect); mecA Methicillin-Resist Gene Not Detected (Not Detect); vanA/B Vancomycin-Resist Genes Not Detected (Not Detect)
--- NOTE | 2018-06-26 17:55 | Internal Med Progress Note ---
Hospitalist Progress Note - Encounter Date of Encounter: 06/26/18 Time of Encounter: 17:55 - Subjective Interval History: Pt denies fever, chills, N/V or diarrhea. Denies CP or SOB. - Exam Vitals: Temp Pulse Resp BP Pulse Ox 98.0 F 70 17 106/68 100 06/26/18 13:35 06/26/18 13:35 06/26/18 13:35 06/26/18 13:35 06/26/18 13:35 Exam: . - Assessment and Plan (1) Sepsis Current Visit: No Status: Acute Assessment and Plan: Meets due to fever and leukocytosis Ordering Vanc and Zosyn. Will monitor CBC daily Prelim blood cultures growing gram positive cocci and gram neg jose alejandro. Will continue IVF (2) Osteomyelitis of right foot Current Visit: Yes Status: Acute Assessment and Plan: Already aware of the patient as pt was sent form wound clinic Surgery consulting. Plan to do surgery 06/26/2018. (3) Type 2 diabetes mellitus Current Visit: No Status: Chronic Assessment and Plan: Levemir and SSI. Metformin hold. (4) Leukocytosis Current Visit: Yes Status: Acute Assessment and Plan: WBC 23.9 up 26.1. IV antibiotic ordered. Will monitor CBC daily. (5) Hypertension Current Visit: No Status: Chronic Assessment and Plan: Norvasc, Lisinopril, and metorpolol (6) Hyponatremia Current Visit: No Status: Chronic Assessment and Plan: Na 130. Will give IVF DVT Prophylaxis: Lovenox - Summary of Assessment and Plan Summary of Assessment and Plan: History of present illness: Dr. Bills Ms. Mccallum is a 52 year old female with past medical history of DM-II, diabetic neuropathy, CHF, HTN, HLD, CAD, CVA, [place] s/p stent, CKD, obesity, smoker 1PPD x 30 years. Pt reports having fever and chills at [facility]. States she has had issues with diabetic ulcers for about 7 years and most especially on the same foot. Pt sent from wound clinic due to osteomyelitis of the right calcaneus. She denies CP or SOB. She denies N/V or diarrhea. - Time Spent with Patient Total time spent is greater than 50% in coordination of care (as documented) at patient's floor/unit and/or counseling patient: less than 15 minutes Plan of Care Discussed with: patient Internal Medicine: Result - Labs CBC & Chem 7: 06/26/18 01:01 06/26/18 01:01 Labs: Short CBC 06/26/18 Range/Units 01:01 WBC 26.1 H (4.3-11.1) K/mcL Hgb 8.8 L D (11.5-15.4) g/dL Hct 28.3 L (35.3-44.9) % Plt Count 440 H (140-400) K/mcL Neutrophils # 24.4 H (1.6-8.9) K/mcL BMP 06/26/18 01:01 Sodium 126 L Potassium 4.4 Chloride 100 Carbon Dioxide 18 L BUN 38 H Creatinine 1.89 H Glucose 399 H Calcium 8.0 L Cardiac Enzymes 06/25/18 06/26/18 06/26/18 Range/Units 19:00 01:01 07:42 Troponin I 0.04 H* 0.04 H* 0.04 H* (< 0.04) ng/mL Consult Discharge Plan - Plan Additional Instructions: 1. Podiatry will sign off. 2. Follow up with Dr. Bell following the amputation. 3. Follow up as needed for the left foot with Dr. Walker. Referrals: [facility] [place],Matteo Velez MD [Primary Care Provider] - (1) Sepsis Qualifiers: Sepsis type: sepsis due to unspecified organism Qualified Code(s): A41.9 - Sepsis, unspecified organism (2) Osteomyelitis of right foot Qualifiers: Osteomyelitis type: other chronic Qualified Code(s): M86.671 - Other chronic osteomyelitis, right ankle and foot (3) Type 2 diabetes mellitus Qualifiers: Diabetes mellitus termite treater insulin use: with termite treater use Diabetes mellitus complication status: with hyperglycemia Qualified Code(s): E11.65 - Type 2 diabetes mellitus with hyperglycemia; 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
[2018-06-26] MEDS ORDERED: Lidocaine -MPF 2% 2 ML VIAL ONE (20:50)
[2018-06-26] MEDS ORDERED: Lidocaine -MPF 4% 5 ML AMPUL ONE (20:50)
[2018-06-26] MEDS ORDERED: *HR* FentaNYL (PF) 100 MCG/2 ML VIAL ONE ×2 (20:51→23:35)
[2018-06-26] MEDS ORDERED: *HR* Midazolam HCl 2 MG/2 ML VIAL ONE (20:51)
[2018-06-26] MEDS ORDERED: *HR* Propofol 200 MG/20 ML VIAL IVP ONE (20:51)
--- NOTE | 2018-06-26 21:30 | Anesthesia Evaluation PreOp ---
Date of Encounter: 06/26/18 Time of Encounter: 21:28 - Past History Planned Operation: R-BKA re: sepsis & R-foot Osteomyelitis Cardiac History: VT, CHF, HTN, Hyperlipidemia, Cardiac Stent (Stents x 2, Most recently ANGELIQUE placed 04/21/2018. Other stent approximately 8 yrs ago. 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 Anxiety/Depression) Other Medical History: Renal (Acute on ChronicKDz), Diabetes Type II Anesthesia History: No Prior Anesthetic Complications, Past Anesthesia (Tubal, R-foot surgery, Angioplasty/Stent, I&D) Alcohol Use: none Drug use: none Medications and Allergies Atorvastatin Calcium [Lipitor] 80 mg PO DAILY 08/21/16 [History] Clopidogrel [Plavix] 75 mg PO DAILY 08/21/16 [History] Ferrous Sulfate 325 mg PO BIDWM 08/21/16 [History] Gabapentin [Neurontin] 300 mg PO BID 08/21/16 [History] Lisinopril [Zestril] 10 mg PO DAILY 08/21/16 [History] Magnesium Oxide [Magnesium] 400 mg PO DAILY 08/21/16 [History] Nitroglycerin [Nitrostat] 0.4 mg SL Q5M PRN 08/21/16 [History] Ranitidine HCl [Acid Manager Floor] 150 mg PO BID 08/21/16 [History] Sertraline [Zoloft] 100 mg PO DAILY 08/21/16 [History] Metformin HCl [Glucophage] 1,000 mg PO BID 03/28/17 [History] Insulin ASPART [NovoLOG] 0 unit SQ TIDWM 06/19/17 [History] Sennosides [Senna] 8.6 mg PO DAILY 06/19/17 [History] Insulin Glargine,Hum.rec.anlog [Basaglar Kwikpen U-100] 60 unit SQ QAM 12/30/17 [History] amLODIPine [Norvasc] 10 mg PO DAILY 30 Days #30 tablet 02/07/18 [Rx] Aspirin 81 mg PO DAILY 30 Days #30 tab.chew 04/22/18 [Rx] Furosemide [Lasix] 20 mg PO DAILY 30 Days #30 tablet 04/22/18 [Rx] Metoprolol [Lopressor] 12.5 mg PO BID 30 Days #30 tablet 04/22/18 [Rx] Allergy/AdvReac Type Severity Reaction Status Date / Time Hydromorphone [From Dilaudid] Allergy Palpitation Verified 06/25/18 14:52 s heparin AdvReac See Verified 06/25/18 14:52 Comments - Meds/Allergy Pre-op Review Medications Reviewed: Yes Allergies Reviewed: Yes Beta Blockers on Current Med List: Yes (Metoprolool) If Beta Blockers taken, Date/Time (Last Dose taken): 06/26/2018 @ 0814 Anesthesia Results - Labs 06/26/18 01:01 06/26/18 01:01 Laboratory Results Impressions Foot X-Ray 06/25/18 15:09 IMPRESSION: Chronic soft tissue defect/ulcer along the heel of the foot. Underlying heterogeneity of the calcaneus persists. This could reflect acute on chronic osteomyelitis. Consideration should be given to contrast-enhanced MRI. D/ / James Moss / James Moss Interpreting Provider: James Moss Laboratory Tests 04/20/18 06/25/18 06/26/18 01:37 15:24 01:01 Est GFR (Non-Af Amer) 28 L POC Glucose Alkaline Phosphatase 176 H Troponin I B-Natriuretic Peptide 1812 H 06/26/18 06/26/18 07:42 17:08 Est GFR (Non-Af Amer) POC Glucose 141 H Alkaline Phosphatase Troponin I 0.04 H* B-Natriuretic Peptide - Imaging EKG: image reviewed (98bpm SR) Additional studies: ECHO 04/22/2018 LVEF 60%. Definity echo contrast was used. Not all LV wall segments were well visualized. Normal right ventricular structure and function. Left Ventricular Wall Motion: Rest Echo Findings The mid anterior septal, mid inferior lateral, basal anterior septal and basal inferior lateral hauser were not visualized. All other wall segments showed normal motion. Cardiac Cath 04/21/2018 There is severe one vessel coronary artery disease. Patient had successful PTCA/Drug-Eluting Stent placement in the distal RCA. Stent placed from a prior procedure in the 1st Diagonal is patent. Anesthesia Exam Vital Signs Temp Pulse Resp BP Pulse Ox 06/26/18 20:51 98.2 F 74 11 146/78 100 06/26/18 13:35 98.0 F 70 17 106/68 100 06/26/18 10:00 98.0 F 72 19 132/79 97 06/26/18 06:44 70 15 135/69 96 06/26/18 05:01 99.4 F 86 16 136/75 95 06/25/18 22:36 98.1 F 81 18 129/76 95 Intake and Output 06/26/18 06/26/18 06/26/18 07:59 15:59 23:59 Intake Total 100 / 100 1100 / 1100 250 / 250 Output Total 300 / 300 900 / 900 Balance -200 / -200 1100 / 1100 -650 / -650 Intake: IV Fluids 100 / 100 1100 / 1100 250 / 250 0.9 % Sodium Chloride 1,000 ML 1000 / 1000 @ 75 mls/hr IVC .[id number] NATE Rx #:[id number] Zosyn 3.375 GM In 0.9 % Sodium 100 / 100 100 / 100 Chloride (Mini-Bag +) 100 ML @ 25 mls/hr IVPB Q8HR NATE Rx#: [id number] Vancocin 1,250 MG In 0.9 % 250 / 250 Sodium Chloride 250 ML @ 166. 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 Phil Lam MD
[2018-06-26] MEDS ORDERED: Acetaminophen IV 1,000 MG/100 ML INFUS..BTL ONE (22:09)
[2018-06-26] MEDS ORDERED: EPHEDrine 50 MG/ML VIAL ONE (22:44)
[2018-06-26] MEDS ORDERED: Ondansetron 4 MG/2 ML VIAL ONE (23:20)
[2018-06-26] MEDS ORDERED: Dexamethasone 4 MG/ML VIAL ONE (23:20)
[2018-06-26] MEDS ORDERED: *HR* Magnesium Sulfate 1 GM/2 ML VIAL ONE (23:37)
--- NOTE | 2018-06-26 23:47 | Operative Note ---
Date of procedure: 06/26/18 Pre-op diagnosis: Osteomyelitis right foot Post-op diagnosis: same Procedure: Right below-knee amputation Anesthesia: SHEA Surgeon: Segundo Bell Was there an teaching assistant present: Yes Dog Breeder: Lisbeth Michelle Estimated blood loss (cc): 150 Specimen: Right below-knee amputation Condition: stable Disposition: PACU Procedure in Detail: After informed consent the patients taking major operating suite placed in the supine position and given adequate general endotracheal anesthesia. The right lower extremity was prepped and draped in sterile fashion utilizing Betadine solution and standard draping techniques. Timeout was taken and the patient was identified. The lateralizing cora was identified. I used a one third rule to construct the posterior flap and incision sites. I divided the anterior compartment and lateral compartment. I divided the soleus and gastrocnemius on the posterior flap. The peroneal and anterior tibial nerves were clamped and ligated with heavy silk. The anterior tibial vascular bundle was clamped and ligated the posterior tibial was clamped and ligated and there were some peroneal branches were also clamped and ligated. The fibula was divided higher than the tibia. The tibia was divided 2 fingerbreadths below the tibial tuberosity. Oscillating saw was used. Hemostasis was excellent area total blood loss was about 150 mL. I reconstructed the below-knee amputation in multiple layers with interrupted 2-0 Vicryl. The skin was in excellent condition and well vascularized. Patient was placed in a knee immobilizer. Skin was closed with skin clips. She tolerated the procedure well.
[2018-06-27] MEDS ORDERED: *HR* Dextrose 50 % in Water (Syg) 50 ML SYRINGE IVP PRN (00:56)
[2018-06-27] MEDS ORDERED: Dextrose Gel 15 GM/37.5 ML TUBE PO PRN ×2 (00:56)
[2018-06-27] MEDS ORDERED: Nitroglycerin 0.4 MG TAB.SUBL SL PRN (00:56)
[2018-06-27] MEDS ORDERED: D5% in Water 1,000 ML IVC PRN (00:56)
[2018-06-27] MEDS ORDERED: Naloxone 0.4 MG/ML INJ IVP PRN (00:56)
[2018-06-27] MEDS ORDERED: Acetaminophen 325 MG TABLET PO PRN (00:56)
[2018-06-27] MEDS: *HR* OxyCODONE/APAP 10/325 TABLET PO PRN ×3 (01:52→22:19)
[2018-06-27] MEDS: Baclofen 10 MG TABLET PO PRN ×2 (02:46→22:19)
[2018-06-27] MEDS: 0.9 % Sodium Chloride 1,000 ML IVC SCH ×3 (04:07→08:12)
--- NOTE | 2018-06-27 05:22 | Anesthesia Evaluation Post Op ---
Date of Encounter: 06/27/18 Time of Encounter: 00:40 - Vital Signs Vital Signs: Vital Signs/O2 Sat/Glucose, Most Current Vital Signs Temp Pulse Resp BP Pulse Ox 06/27/18 00:36 97.8 F 81 18 153/79 96 06/27/18 00:26 85 18 147/85 96 06/27/18 00:16 80 16 134/86 96 06/27/18 00:06 98.6 F 83 16 126/73 95 06/26/18 20:51 98.2 F 74 11 146/78 100 06/26/18 13:35 98.0 F 70 17 106/68 100 06/26/18 10:00 98.0 F 72 19 132/79 97 Intake and Output 06/26/18 06/26/18 06/27/18 15:59 23:59 07:59 Intake Total 1100 / 1100 250 / 250 Output Total 1050 / 1050 200 / 200 Balance 1100 / 1100 -800 / -800 -200 / -200 Intake: IV Fluids 1100 / 1100 250 / 250 0.9 % Sodium Chloride 1,000 ML 1000 / 1000 @ 75 mls/hr IVC .[id number] NATE Rx #:[id number] Zosyn 3.375 GM In 0.9 % Sodium 100 / 100 Chloride (Mini-Bag +) 100 ML @ 25 mls/hr IVPB Q8HR NATE Rx#: [id number] Vancocin 1,250 MG In 0.9 % 250 / 250 Sodium Chloride 250 ML @ 166. 667 mls/hr IVPB Q24H NATE Rx#: [id number] Output: Urine 900 / 900 200 / 200 Estimated Blood Loss 150 / 150 Other: Meal NPO LUNCH NPO DINNER # Voids 2 2 # Urine Diapers 1 Blood Glucose* 272 141 97 - Lungs Lungs: Clear Ascult./Percussion - Airway Airway: Non-obstructed - Cardiovascular Regular Rate - Mental Status Mental Status: Alert & Oriented, Answers Appropriately - Pain Pain Scale: 5 (charley horse in leg) Pain Scale used: Numeric (1 - 10) - Nausea Vomiting Nausea Vomiting: Not Present - Hydration Hydration: Ice chips, Has not voided - Discharge PostOp Status: Transfer Patient to floor Anes Supervising Prov Stmt: Pt seen/evaluated, VSS And has met criteria for discharge to floor. - MD Kristen
[2018-06-27] MEDS ORDERED: *HR* Enoxaparin 40 MG/0.4 ML SYRINGE SQ SCH (06:00)
[2018-06-27] MEDS: *HR* Enoxaparin 40 MG/0.4 ML SYRINGE SQ SCH (06:19)
[2018-06-27] MEDS ORDERED: *HR* Morphine 2 MG/ML SYRINGE IVP ONE (06:48)
[2018-06-27] MEDS: Piperacillin/Tazobactam 3.375 GM in 0.9 % Sodium Chloride Mini Bag 100 ML IVPB SCH ×3 (07:09→19:14)
[2018-06-27] MEDS: Gabapentin 300 MG CAPSULE PO SCH ×3 (07:09→22:19)
[2018-06-27 07:22] LABS: Basophils % 0.1 %; Eosinophils % 0.1 %; Hematocrit 28.8 % (35.3-44.9); Hemoglobin 8.6 g/dL (11.5-15.4); Immature Granulocytes % 0.9 % (0-4); Lymphocytes # 0.5 K/mcL (0.6-4.6); Lymphocytes % 3.4 %; Mean Corpuscular HGB Conc 29.9 g/dL (31.6-35.5); Mean Corpuscular Hemoglobin 25.2 pg (28.0-33.3); Mean Corpuscular Volume 84.5 fL (83.0-100.0); Mean Platelet Volume 9.6 fL (9.4-12.4); Monocytes # 0.3 K/mcL (0.0-1.3); Monocytes % 2.1 %; Neutrophils # 13.6 K/mcL (1.6-8.9); Platelet Count 419 K/mcL (140-400); Red Blood Count 3.41 M/mcL (3.82-4.97); Segmented Neutrophils % 93.4 %
[2018-06-27 07:42] LABS: Calcium 8.3 mg/dL (8.6-10.3); Potassium 4.8 mEq/L (3.5-5.1)
[2018-06-27] MEDS: Insulin LISPRO 300 UNITS/3 ML VIAL SQ SCH ×3 (08:12→18:57)
[2018-06-27] MEDS: Insulin DETEMIR 100 UNIT/ML X5UNITS SQ SCH (08:14)
[2018-06-27] MEDS: Aspirin 81 MG TAB.CHEW PO SCH (08:15)
[2018-06-27] MEDS: Magnesium Oxide 400 MG TABLET PO SCH (08:16)
[2018-06-27] MEDS: Famotidine 20 MG TABLET PO SCH (08:16)
[2018-06-27] MEDS: amLODIPine 5 MG TABLET PO SCH (08:17)
[2018-06-27] MEDS: Sennosides 8.6 MG TABLET PO SCH (08:17)
[2018-06-27] MEDS ORDERED: Famotidine 20 MG TABLET PO SCH (09:00)
[2018-06-27] MEDS ORDERED: Insulin DETEMIR 100 UNIT/ML X5UNITS SQ SCH (09:00)
[2018-06-27] MEDS ORDERED: Furosemide 20 MG TABLET PO SCH (09:00)
[2018-06-27] MEDS ORDERED: *HR* HYDROcodone/Acet 7.5/325 mg TABLET PO ONE (10:08)
--- NOTE | 2018-06-27 10:18 | General Surgery Progress Note ---
<Dwaine Cedeno S - Last Filed: 06/27/18 10:36> Date of Encounter: 06/27/18 Time of Encounter: 08:15 - Assessment and Plan (1) Osteomyelitis of right foot Current Visit: Yes Status: Acute Patient is POD 1 right BKA for osteomyelitis of right foot WBC 26.1 > 14.5 today Hgb 8.8 > 8.6 today Oxycodone and acetaminophen for pain, added dose of norco On Vancomycin and Zosyn Senna for constipation IVF at 75 ml/hr Up to chair with assistance Consult to PT/OT Diabetic diet Qualifiers: Osteomyelitis type: other chronic Qualified Code(s): M86.671 - Other chronic osteomyelitis, right ankle and foot (2) Diabetes Current Visit: No Status: Acute Management per primary team sliding scale insulin Qualifiers: Diabetes mellitus type: type 2 Diabetes mellitus custodial insulin use: unspecified custodial insulin use status Diabetes mellitus complication status: with circulatory complication Diabetes mellitus complication detail: with other circulatory complications Qualified Code(s): E11.59 - Type 2 diabetes mellitus with other circulatory complications (3) Hypertension Current Visit: No Status: Chronic Management per primary team Continued home meds Qualifiers: Hypertension type: essential hypertension Qualified Code(s): I10 - Essential (primary) hypertension (4) Hyponatremia Current Visit: No Status: Chronic Management per primary team IVF Subjective Patient reports: still having pain, tolerating a regular diet Narrative: Patient still complaining of pain this morning. She is tolerating her diet. She denies nausea, vomiting, chest pain, SOB, fevers/chills. Objective Vital Signs - Last 8 Hours Temp Pulse Resp BP Pulse Ox 06/27/18 07:42 97.6 F 81 16 144/79 95 06/27/18 04:00 97.5 F L 88 15 163/78 95 06/27/18 03:10 97.8 F 83 15 169/48 96 Intake and Output 06/26/18 06/27/18 06/27/18 23:59 07:59 15:59 Intake Total 250 / 250 1120 / 1120 Output Total 1050 / 1050 500 / 500 200 / 200 Balance -800 / -800 -500 / -500 920 / 920 Intake: IV Fluids 250 / 250 1000 / 1000 0.9 % Sodium Chloride 1,000 ML 1000 / 1000 @ 75 mls/hr IVC .[id number] NATE Rx #:[id number] Vancocin 1,250 MG In 0.9 % 250 / 250 Sodium Chloride 250 ML @ 166. 667 mls/hr IVPB Q24H NATE Rx#: [id number] Oral 120 / 120 Output: Urine 900 / 900 500 / 500 200 / 200 Estimated Blood Loss 150 / 150 Other: Meal NPO DINNER Breakfast Percent of Meal Consumed 100% # Voids 2 1 # Bowel Movements 0 Blood Glucose* 141 97 - General physical appearance well developed - Respiratory normal expansion, normal respiratory effort - Cardiovascular Cardiovascular exam: Present: RRR - Abdomen Abdomen: Present: bowel sounds present, soft, non tender - Incision Incision: Present: clean and dry, intact. Absent: draining, erythema - Integumentary no rash - Psychiatric oriented to time, oriented to person, oriented to place - Labs 06/27/18 06:32 06/27/18 06:32 Diabetes panel 06/27/18 Range/Units 06:32 Sodium 131 L (136-145) mEq/L Potassium 4.8 (3.5-5.1) mEq/L Chloride 103 (98-107) mEq/L Carbon Dioxide 17 L (23-29) mEq/L BUN 34 H (6-20) mg/dL Creatinine 1.83 H (0.60-1.20) mg/dL Glucose 211 H (70-105) mg/dL Calcium 8.3 L (8.6-10.3) mg/dL Calcium panel 06/27/18 Range/Units 06:32 Calcium 8.3 L (8.6-10.3) mg/dL Pituitary panel 06/27/18 Range/Units 06:32 Sodium 131 L (136-145) mEq/L Potassium 4.8 (3.5-5.1) mEq/L Chloride 103 (98-107) mEq/L Carbon Dioxide 17 L (23-29) mEq/L BUN 34 H (6-20) mg/dL Creatinine 1.83 H (0.60-1.20) mg/dL Glucose 211 H (70-105) mg/dL Calcium 8.3 L (8.6-10.3) mg/dL Adrenal panel 06/27/18 Range/Units 06:32 Sodium 131 L (136-145) mEq/L Potassium 4.8 (3.5-5.1) mEq/L Chloride 103 (98-107) mEq/L Carbon Dioxide 17 L (23-29) mEq/L BUN 34 H (6-20) mg/dL Creatinine 1.83 H (0.60-1.20) mg/dL Glucose 211 H (70-105) mg/dL Calcium 8.3 L (8.6-10.3) mg/dL Consult Discharge Plan - Plan Additional Instructions: 1. Podiatry will sign off. 2. Follow up with Dr. Bell following the amputation. 3. Follow up as needed for the left foot with Dr. Walker. [facility] - <Segundo Bell - Last Filed: 06/27/18 16:09> Date of Encounter: 06/27/18 - Assessment and Plan (1) Osteomyelitis of right foot Current Visit: Yes Status: Acute Qualifiers: Osteomyelitis type: other chronic Qualified Code(s): M86.671 - Other chronic osteomyelitis, right ankle and foot Objective Vital Signs - Last 8 Hours Temp Pulse Resp BP Pulse Ox 06/27/18 10:18 97.9 F 76 17 156/89 95 06/27/18 08:42 95 Intake and Output 06/27/18 06/27/18 06/27/18 07:59 15:59 23:59 Intake Total 1340 / 1340 Output Total 500 / 500 500 / 500 Balance -500 / -500 840 / 840 Intake: IV Fluids 1100 / 1100 0.9 % Sodium Chloride 1,000 ML 1000 / 1000 @ 75 mls/hr IVC .[id number] NATE Rx #:[id number] Zosyn 3.375 GM In 0.9 % Sodium 100 / 100 Chloride (Mini-Bag +) 100 ML @ 25 mls/hr IVPB Q8HR NATE Rx#: [id number] Oral 240 / 240 Output: Urine 500 / 500 500 / 500 Other: Meal Lunch Percent of Meal Consumed 60% # Voids 0 # Bowel Movements 0 0 Blood Glucose* 97 268 - Labs 06/27/18 06:32 06/27/18 06:32 Diabetes panel 06/27/18 Range/Units 06:32 Sodium 131 L (136-145) mEq/L Potassium 4.8 (3.5-5.1) mEq/L Chloride 103 (98-107) mEq/L Carbon Dioxide 17 L (23-29) mEq/L BUN 34 H (6-20) mg/dL Creatinine 1.83 H (0.60-1.20) mg/dL Glucose 211 H (70-105) mg/dL Calcium 8.3 L (8.6-10.3) mg/dL Calcium panel 06/27/18 Range/Units 06:32 Calcium 8.3 L (8.6-10.3) mg/dL Pituitary panel 06/27/18 Range/Units 06:32 Sodium 131 L (136-145) mEq/L Potassium 4.8 (3.5-5.1) mEq/L Chloride 103 (98-107) mEq/L Carbon Dioxide 17 L (23-29) mEq/L BUN 34 H (6-20) mg/dL Creatinine 1.83 H (0.60-1.20) mg/dL Glucose 211 H (70-105) mg/dL Calcium 8.3 L (8.6-10.3) mg/dL Adrenal panel 06/27/18 Range/Units 06:32 Sodium 131 L (136-145) mEq/L Potassium 4.8 (3.5-5.1) mEq/L Chloride 103 (98-107) mEq/L Carbon Dioxide 17 L (23-29) mEq/L BUN 34 H (6-20) mg/dL Creatinine 1.83 H (0.60-1.20) mg/dL Glucose 211 H (70-105) mg/dL Calcium 8.3 L (8.6-10.3) mg/dL - Attending Attestation I examined this patient and my medical decision-making was reviewed with the Resident Physician. I agree with the documented findings, disposition and treatment plan as described except to the extent set forth below. The patient is seen and evaluated on morning rounds with the resident. She is sitting in bed eating regular breakfast she appears to have excellent pain control. The wound is clean and dry. She may be discharged to rehabilitation facility as soon as a bed is available. She is not clear to go home or to self transfer until her training for postoperative amputation is completed. Segundo Bell MD FACS
--- NOTE | 2018-06-27 10:48 | Nephrology Consult Note ---
Date of Encounter: 06/27/18 Time of Encounter: 10:30 Assessment and Plan (1) Acute kidney injury superimposed on chronic kidney disease Current Visit: Yes Status: Acute Acute kidney injury likely pre-renal in setting of right below knee amputation secondary to osteomyelitis. Known chronic kidney disease which stage has trended from 3A to 3B over this year. Following with [employer] Marguerite Shepard of [facility] whom no longer rounds that [place]. -Creatinine 1.83, yesterday 1.89 (baseline 1.3-1.5) -GFR 29 (normally 3B) -I&O: 1450/1350 acceptable urine output -urinalysis demonstrating protein >1000, glucose 250, blood, positive leukocyte esterase, RBC 15-30, WBC 50-100, no casts Plan: -creatinine has improved with conservative management of IV fluids and she has appropriate urine output. Recommend to continue lactated ringers since she has a rising chloride level causing an acidosis. -It has been noted that the patient's GFR has worsened over this year from CKD stage 3A to 3B. Etiology may be worsened diabetic nephropathy also consider re nal artery stenosis. Will order a retroperitoneal ultrasound since there is no recorded imaging in our system. -recommend to continue holding lisinopril -continue renal protective measures including avoid nephrotoxic agents and renal dose medications including vancomycin -continue to monitor urine output and serum creatinine (2) Anemia Current Visit: No Status: Acute Anemia likely multifactorial including iron deficiency and of chronic disease in setting of CKD. Last iron panel showed borderline low iron with elevated ferr itin a low transferrin. -Hemoglobin 8.6 (baseline 9-10) -microcytic -no obvious active bleeding -04/03/2018: iron 51, 20% saturation, transferrin 178, ferritin 186 -will continue to monitor since is likely of chronic disease in setting of CKD with borderline low iron level. Need to ask patient when last colonoscopy was. Qualifiers: Anemia type: unspecified type Qualified Code(s): D64.9 - Anemia, unspecified (3) Hyponatremia Current Visit: No Status: Chronic Hypotonic Hyponatremia. Patient euvolemic on examination. -Etiology may be SIADH post surgery -Sodium 131, yesterday 126 -serum osmolality 286 Plan: -hyponatremia has improved with conservative management with NS IV fluids. However, due to the chloride increasing will stop the .9% normal saline and switch to lactated ringers. -Pending urine sodium, urine osmolality, urine pH (4) Osteomyelitis of right foot Current Visit: Yes Status: Acute Status post right below knee amputation secondary to osteomyelitis -management per surgery Qualifiers: Osteomyelitis type: other chronic Qualified Code(s): M86.671 - Other chronic osteomyelitis, right ankle and foot History of Present Illness - Reason for Consult Consult date: 06/27/18 Acute Kidney Injury, Chronic Kidney Disease - Chief Complaint Osteomyelitis - History of Present Illness Ms. Xena monahan a is a 52-year-old female past medical history of COPD stage III, CHF, CAD, diabetes who presented to [facility] due to osteomyelitis for which she is status post right below knee amputation on 06/26/2018. Nephrology was consulted due to acute kidney injury on chronic kidney disease. Upon examination the patient she reported that she follows with [employer] Marguerite Shepard a member of [facility] who no longer rounds at [place]. She denies taking NSAIDs. She stated that she has been told that her kidney disease is stable. She was unsure of the stage of kidney disease. She admitted to fevers and chills. She denies difficulty urinating, dysuria, hematuria, nausea, vomiting, abdominal pain, diarrhea. She denies alcohol use and drug use. She is a current smoker. Past Med Surg Social Fam HX - Past Medical History Attestation: Yes The following information was validated with the patient. Source: patient Medical history: CHF, coronary artery disease, diabetes, GERD, hyperlipidemia, hypertension, peripheral artery disease, renal disease Psychiatric history: depression - Past Surgical History Surgical History: angioplasty/stent, orthopedic, other, other Additional surgical history: right foot surgery, tubes tied. - Social History Smoking Status: Current every day smoker Smokeless Tobacco Status: No Alcohol use: none Drug use: none - Family History Mother Family Member Ethnicity: Non- Living Status: Still Living Hx Family Cardiac Disorders: Yes Hx Family Endocrine Disorder: Yes (type 2 diabetes) Father Family Member Ethnicity: Non- Living Status: Still Living Hx Family Endocrine Disorder: Yes (type 2 diabetes) Medications and Allergies Atorvastatin Calcium [Lipitor] 80 mg PO DAILY 08/21/16 [History] Clopidogrel [Plavix] 75 mg PO DAILY 08/21/16 [History] Ferrous Sulfate 325 mg PO BIDWM 08/21/16 [History] Gabapentin [Neurontin] 300 mg PO BID 08/21/16 [History] Lisinopril [Zestril] 10 mg PO DAILY 08/21/16 [History] Magnesium Oxide [Magnesium] 400 mg PO DAILY 08/21/16 [History] Nitroglycerin [Nitrostat] 0.4 mg SL Q5M PRN 08/21/16 [History] Ranitidine HCl [Acid Fruit Or Nut Farmworker] 150 mg PO BID 08/21/16 [History] Sertraline [Zoloft] 100 mg PO DAILY 08/21/16 [History] Metformin HCl [Glucophage] 1,000 mg PO BID 03/28/17 [History] Insulin ASPART [NovoLOG] 0 unit SQ TIDWM 06/19/17 [History] Sennosides [Senna] 8.6 mg PO DAILY 06/19/17 [History] Insulin Glargine,Hum.rec.anlog [Basaglar Kwikpen U-100] 60 unit SQ QAM 12/30/17 [History] amLODIPine [Norvasc] 10 mg PO DAILY 30 Days #30 tablet 02/07/18 [Rx] Aspirin 81 mg PO DAILY 30 Days #30 tab.chew 04/22/18 [Rx] Furosemide [Lasix] 20 mg PO DAILY 30 Days #30 tablet 04/22/18 [Rx] Metoprolol [Lopressor] 12.5 mg PO BID 30 Days #30 tablet 04/22/18 [Rx] Allergy/AdvReac Type Severity Reaction Status Date / Time Hydromorphone [From Dilaudid] Allergy Palpitation Verified 06/25/18 14:52 s heparin AdvReac See Verified 06/25/18 14:52 Comments Review of Systems Constitutional: chills, fever(s), no headache(s) Nose, mouth and throat: no dizziness, no headache(s) Cardiovascular: no chest pain, no palpitations, no syncope Respiratory: no cough, no dyspnea, no wheezing Gastrointestinal: no abdominal pain, no diarrhea, no hematochezia, no nausea, no vomiting Genitourinary Female: no difficulty urinating, no dysuria, no flank pain, no urinary frequency, no urinary hesitancy Integumentary: non-healing lesions (Right lower extremity), skin ulcer ( right lower extremity) Psychiatric: no anxiety, no confusion, no irritability Endocrine: no fatigue, no palpitations Exam - Vital Signs Vital signs: Initial Vital Signs Temp Pulse Resp BP Pulse Ox 102.4 F H 100 18 145/79 97 06/25/18 14:50 06/25/18 14:50 06/25/18 14:50 06/25/18 14:50 06/25/18 14:50 Vital Signs - Last 8 Hours Temp Pulse Resp BP Pulse Ox 06/27/18 10:18 97.9 F 76 17 156/89 95 06/27/18 07:42 97.6 F 81 16 144/79 95 06/27/18 04:00 97.5 F L 88 15 163/78 95 06/27/18 03:10 97.8 F 83 15 169/48 96 Intake and Output 06/26/18 06/27/18 06/27/18 23:59 07:59 15:59 Intake Total 250 / 250 1120 / 1120 Output Total 1050 / 1050 500 / 500 200 / 200 Balance -800 / -800 -500 / -500 920 / 920 Intake: IV Fluids 250 / 250 1000 / 1000 0.9 % Sodium Chloride 1,000 ML 1000 / 1000 @ 75 mls/hr IVC .[id number] [facility] Rx #:[id number] Vancocin 1,250 MG In 0.9 % 250 / 250 Sodium Chloride 250 ML @ 166. 667 mls/hr IVPB Q24H [facility] Rx#: [id number] Oral 120 / 120 Output: Urine 900 / 900 500 / 500 200 / 200 Estimated Blood Loss 150 / 150 Other: Meal NPO DINNER Breakfast Percent of Meal Consumed 100% # Voids 2 1 # Bowel Movements 0 0 Blood Glucose* 141 97 - General Appearance Exam: Gen.: Vitals noted. No acute distress. AAOx3 HEENT: oropharynx clear, Normocephalic, atraumatic Neck: Supple. No adenopathy. Cardiac: RRR, no murmur, +S1/S2, left lower extremity nonpitting edema Pulmonary: CTA bilaterally, no wheezes, rales or rhonchi, equal chest expansion Abdomen: soft, nontender, Bowel sounds noted, no guarding. Extremities: right below knee amputation Neuro: A&Ox3, moves all extremities, no focal deficits Psych: Appropriate mood and behavior Results - Lab Results 06/27/18 06:32 06/27/18 06:32 Most recent lab results Calcium 8.3 mg/dL (8.6-10.3) L 06/27/18 06:32 Magnesium 1.6 mg/dL (1.6-2.6) 06/25/18 15:24 Consult Discharge Plan - Plan Additional Instructions: 1. Podiatry will sign off. 2. Follow up with Dr. Bell following the amputation. 3. Follow up as needed for the left foot with Dr. Walker. Referrals: [facility] [place],Matteo Velez MD [Primary Care Provider] -
--- NOTE | 2018-06-27 15:02 | Internal Med Progress Note ---
Hospitalist Progress Note - Encounter Date of Encounter: 06/27/18 Time of Encounter: 11:00 - Subjective Interval History: Patient underwent right BKA uneventfully last night. Complaining of pain over the stump but otherwise doing well postoperatively. No fever/chills or N/V. - Exam Vitals: Temp Pulse Resp BP Pulse Ox 97.9 F 76 17 156/89 95 06/27/18 10:18 06/27/18 10:18 06/27/18 10:18 06/27/18 10:18 06/27/18 10:18 Exam: General: Alert and oriented, mild distress due to pain Cardiovascular:Normal S1 & S2, No JVD. Pulse regular. Lungs: clear to auscultation, no wheezes/rales Abdomen:Soft, non-tender, no rigidity. Extremities: R BKA stump dressing dry and clean Neurological:Normal cognition and motor skills. Non-focal - Assessment and Plan (1) Sepsis Current Visit: No Status: Acute Assessment and Plan: Meets due to fever and leukocytosis and R LE OM as source also has GPC/GNR bacteremia underwent R BKA yesterday, POD#1 continue vanc/zosyn for bacteremia till the culture results are finalized (2) Osteomyelitis of right foot Current Visit: Yes Status: Acute Assessment and Plan: s/p R BKA, POD1 postop care for surgery Will likely be discharged to swing bed after PT/OT evaluation and surgery clearance in the next few days (3) Acute kidney injury superimposed on chronic kidney disease Current Visit: Yes Status: Acute Assessment and Plan: in the setting of sepsis, R foot OM, and R BKA hold off on lisinopril and lasix Avoid nephrotoxins, renally adjusted antibiotics Started on lactated Ringer per nephrology, appreciate input (4) Type 2 diabetes mellitus Current Visit: No Status: Chronic Assessment and Plan: Levemir 80U and SSI. Metformin on hold. (5) Hypertension Current Visit: No Status: Chronic Assessment and Plan: resume Norvasc, and metorpolol hold ANIKA-i as above DVT Prophylaxis: Subcutaneous Lovenox - Time Spent with Patient Total time spent is greater than 50% in coordination of care (as documented) at patient's floor/unit and/or counseling patient: Plan of Care Discussed with: patient Internal Medicine: Result - Labs CBC & Chem 7: 06/27/18 06:32 06/27/18 06:32 Labs: Short CBC 06/27/18 Range/Units 06:32 WBC 14.5 H (4.3-11.1) K/mcL Hgb 8.6 L (11.5-15.4) g/dL Hct 28.8 L (35.3-44.9) % Plt Count 419 H (140-400) K/mcL Neutrophils # 13.6 H (1.6-8.9) K/mcL BMP 06/27/18 06:32 Sodium 131 L Potassium 4.8 Chloride 103 Carbon Dioxide 17 L BUN 34 H Creatinine 1.83 H Glucose 211 H Calcium 8.3 L Consult Discharge Plan - Plan Additional Instructions: 1. Podiatry will sign off. 2. Follow up with Dr. Bell following the amputation. 3. Follow up as needed for the left foot with Dr. Walker. Referrals: [facility] [place],Matteo Velez MD [Primary Care Provider] - _ (1) Sepsis Qualifiers: Sepsis type: sepsis due to unspecified organism Qualified Code(s): A41.9 - Sepsis, unspecified organism (2) Osteomyelitis of right foot Qualifiers: Osteomyelitis type: other chronic Qualified Code(s): M86.671 - Other chronic osteomyelitis, right ankle and foot (4) Type 2 diabetes mellitus Qualifiers: Diabetes mellitus retirement insulin use: with longwall foreman use Diabetes mellitus complication status: with hyperglycemia Qualified Code(s): E11.65 - Type 2 diabetes mellitus with hyperglycemia; Z79.4 - exterminator helper termite (current) use of insulin (5) Hypertension Qualifiers: Hypertension type: essential hypertension Qualified Code(s): I10 - Essential (primary) hypertension
[2018-06-27] MEDS: OXYCODONE Oral CONC 10 MG/0.5 ML ORAL.SYG SL PRN (17:41)
[2018-06-28] MEDS ORDERED: *HR* Morphine 2 MG/ML SYRINGE IVP ONE (00:46)
[2018-06-28] MEDS: Ringers Solution, Lactated 1,000 ML IVC SCH ×3 (00:48→17:05)
[2018-06-28] MEDS: Piperacillin/Tazobactam 3.375 GM in 0.9 % Sodium Chloride Mini Bag 100 ML IVPB SCH ×2 (01:09→10:10)
[2018-06-28] MEDS: OXYCODONE Oral CONC 10 MG/0.5 ML ORAL.SYG SL PRN (02:01)
[2018-06-28 04:17] LABS: Basophils % 0.3 %; Eosinophils # 0.2 K/mcL (0.0-0.6); Eosinophils % 1.4 %; Hematocrit 26.2 % (35.3-44.9); Hemoglobin 7.9 g/dL (11.5-15.4); Immature Granulocytes % 0.8 % (0-4); Lymphocytes # 1.3 K/mcL (0.6-4.6); Mean Corpuscular HGB Conc 30.2 g/dL (31.6-35.5); Mean Corpuscular Hemoglobin 25.6 pg (28.0-33.3); Mean Corpuscular Volume 84.8 fL (83.0-100.0); Mean Platelet Volume 9.2 fL (9.4-12.4); Monocytes % 8.4 %; Platelet Count 407 K/mcL (140-400); Red Blood Count 3.09 M/mcL (3.82-4.97); Red Cell Distribution Width 17.2 % (11.5-14.5); Segmented Neutrophils % 78.1 %
[2018-06-28 04:34] LABS: Calcium 7.9 mg/dL (8.6-10.3); Potassium 4.4 mEq/L (3.5-5.1)
[2018-06-28] MEDS: *HR* Enoxaparin 40 MG/0.4 ML SYRINGE SQ SCH (06:15)
[2018-06-28] MEDS: Insulin LISPRO 300 UNITS/3 ML VIAL SQ SCH ×4 (06:59→17:06)
[2018-06-28] MEDS: Insulin DETEMIR 100 UNIT/ML X5UNITS SQ SCH (10:07)
[2018-06-28] MEDS: Baclofen 10 MG TABLET PO SCH ×3 (10:08→20:01)
[2018-06-28] MEDS: Famotidine 20 MG TABLET PO SCH (10:09)
[2018-06-28] MEDS: Magnesium Oxide 400 MG TABLET PO SCH (10:09)
[2018-06-28] MEDS: Sennosides 8.6 MG TABLET PO SCH (10:09)
[2018-06-28] MEDS: Aspirin 81 MG TAB.CHEW PO SCH (10:10)
[2018-06-28] MEDS: amLODIPine 5 MG TABLET PO SCH (10:10)
[2018-06-28] MEDS: Gabapentin 300 MG CAPSULE PO SCH ×2 (10:10→20:01)
--- NOTE | 2018-06-28 13:58 | Internal Med Progress Note ---
Hospitalist Progress Note - Encounter Date of Encounter: 06/28/18 Time of Encounter: 10:50 - Subjective Interval History: Other than mild pain over the stump (which is better controlled than yesterday), no new complaints. Denies fever/chills or N/V. - Exam Vitals: Temp Pulse Resp BP Pulse Ox 98.3 F 69 15 155/89 92 06/28/18 09:48 06/28/18 09:48 06/28/18 09:48 06/28/18 09:48 06/28/18 09:48 Exam: General: Alert and oriented, mild distress due to pain Cardiovascular:Normal S1 & S2, No JVD. Pulse regular. Lungs: clear to auscultation, no wheezes/rales Abdomen:Soft, non-tender, no rigidity. Extremities: R BKA stump dressing dry and clean Neurological:Normal cognition and motor skills. Non-focal - Assessment and Plan (1) Sepsis Current Visit: No Status: Acute Assessment and Plan: Meets due to fever and leukocytosis and R LE OM as source underwent R BKA yesterday, POD#2 also has GPC/GNR bacteremia -> Strep agalactiae and Proteus, both sensitive to Rocephin will switch vanc/zosyn to Rocephin, aim for 14 days of therapy (2) Osteomyelitis of right foot Current Visit: Yes Status: Acute Assessment and Plan: s/p R BKA, POD2 postop care for surgery PT/OT abx as above (3) Acute kidney injury superimposed on chronic kidney disease Current Visit: Yes Status: Acute Assessment and Plan: in the setting of sepsis, R foot OM, and R BKA hold off on lisinopril and lasix Avoid nephrotoxins, renally adjusted antibiotics Started on lactated Ringer per nephrology, appreciate input (4) Type 2 diabetes mellitus Current Visit: No Status: Chronic Assessment and Plan: Levemir 80U and SSI. Metformin on hold. (5) Hypertension Current Visit: No Status: Chronic Assessment and Plan: resume Norvasc and metorpolol hold ANIKA-i as above DVT Prophylaxis: Subcutaneous Lovenox - Time Spent with Patient Total time spent is greater than 50% in coordination of care (as documented) at patient's floor/unit and/or counseling patient: Plan of Care Discussed with: patient Internal Medicine: Result - Labs CBC & Chem 7: 06/28/18 03:57 06/28/18 03:57 Labs: Short CBC 06/28/18 Range/Units 03:57 WBC 11.5 H (4.3-11.1) K/mcL Hgb 7.9 L (11.5-15.4) g/dL Hct 26.2 L (35.3-44.9) % Plt Count 407 H (140-400) K/mcL Neutrophils # 9.0 H (1.6-8.9) K/mcL BMP 06/28/18 03:57 Sodium 128 L Potassium 4.4 Chloride 102 Carbon Dioxide 18 L BUN 33 H Creatinine 1.70 H Glucose 203 H Calcium 7.9 L Urine 06/27/18 Range/Units 15:25 Urine pH 5.0 (5.0-8.0) pH Units - Impressions Impressions Retroperitoneum Ultrasound 06/27/18 20:15 IMPRESSION: Unremarkable ultrasound of the kidneys and urinary bladder. D/ / Anand Kinney MD / Anand Kinney MD Interpreting Provider: Anand Kinney MD Consult Discharge Plan - Plan Additional Instructions: 1. Podiatry will sign off. 2. Follow up with Dr. Bell following the amputation. 3. Follow up as needed for the left foot with Dr. Walker. Referrals: [facility] [place],Matteo Velez MD [Primary Care Provider] - (1) Sepsis Qualifiers: Sepsis type: Streptococcus group B Qualified Code(s): A40.1 - Sepsis due to streptococcus, group B (2) Osteomyelitis of right foot Qualifiers: Osteomyelitis type: other chronic Qualified Code(s): M86.671 - Other chronic osteomyelitis, right ankle and foot (4) Type 2 diabetes mellitus Qualifiers: Diabetes mellitus group home insulin use: with group home use Diabetes mellitus complication status: with hyperglycemia Qualified Code(s): E11.65 - Type 2 diabetes mellitus with hyperglycemia; Z79.4 - penitentiary (current) use of insulin (5) Hypertension Qualifiers: Hypertension type: essential hypertension Qualified Code(s): I10 - Essential (primary) hypertension
--- NOTE | 2018-06-28 15:22 | General Surgery Progress Note ---
Date of Encounter: 06/28/18 Time of Encounter: 01:30 - Assessment and Plan (1) S/P BKA (below knee amputation) Current Visit: Yes Status: Acute continue daily dressing changes: wash with soap and water, cover with 4 x 4 gauze and wrap with kerlix ensure dressing goes above knee wear knee imobilzer ok to dc to rehab from surgery standpoint surgery will sign off, please call again if needed Qualifiers: Laterality: right Qualified Code(s): Z89.511 - Acquired absence of right leg below knee Subjective Patient reports: no new complaints, feels better, still having pain, pain is less, tolerating a regular diet Objective Vital Signs - Last 8 Hours Temp Pulse Resp BP Pulse Ox 06/28/18 14:08 98.1 F 70 19 129/73 93 06/28/18 09:48 98.3 F 69 15 155/89 92 Intake and Output 06/27/18 06/28/18 06/28/18 23:59 07:59 15:59 Intake Total 100 / 100 1100 / 1100 60 / 60 Output Total 650 / 650 300 / 300 0 / 0 Balance -550 / -550 800 / 800 60 / 60 Intake: IV Fluids 100 / 100 1100 / 1100 Zosyn 3.375 GM In 0.9 % Sodium 100 / 100 100 / 100 Chloride (Mini-Bag +) 100 ML @ 25 mls/hr IVPB Q8HR [facility] Rx#: [id number] Oral 0 / 0 0 / 0 60 / 60 Output: Urine 650 / 650 300 / 300 Catheter 0 / 0 Other: Meal Lunch Percent of Meal Consumed 0% # Bowel Movements 0 Blood Glucose* 309 131 - General physical appearance well developed, well nourished, no distress - Eyes normal ocular movement - ENT normal mucosa, normocephalic - Neck Neck exam: trachea midline - Respiratory normal expansion, normal respiratory effort - Cardiovascular Cardiovascular exam: Present: RRR - Musculoskeletal normal posture - Psychiatric oriented to time, oriented to person, oriented to place, speech is normal, memory intact - Labs 06/28/18 03:57 06/28/18 03:57 Diabetes panel 06/28/18 Range/Units 03:57 Sodium 128 L (136-145) mEq/L Potassium 4.4 (3.5-5.1) mEq/L Chloride 102 (98-107) mEq/L Carbon Dioxide 18 L (23-29) mEq/L BUN 33 H (6-20) mg/dL Creatinine 1.70 H (0.60-1.20) mg/dL Glucose 203 H (70-105) mg/dL Calcium 7.9 L (8.6-10.3) mg/dL Calcium panel 06/28/18 Range/Units 03:57 Calcium 7.9 L (8.6-10.3) mg/dL Pituitary panel 06/28/18 Range/Units 03:57 Sodium 128 L (136-145) mEq/L Potassium 4.4 (3.5-5.1) mEq/L Chloride 102 (98-107) mEq/L Carbon Dioxide 18 L (23-29) mEq/L BUN 33 H (6-20) mg/dL Creatinine 1.70 H (0.60-1.20) mg/dL Glucose 203 H (70-105) mg/dL Calcium 7.9 L (8.6-10.3) mg/dL Adrenal panel 06/28/18 Range/Units 03:57 Sodium 128 L (136-145) mEq/L Potassium 4.4 (3.5-5.1) mEq/L Chloride 102 (98-107) mEq/L Carbon Dioxide 18 L (23-29) mEq/L BUN 33 H (6-20) mg/dL Creatinine 1.70 H (0.60-1.20) mg/dL Glucose 203 H (70-105) mg/dL Calcium 7.9 L (8.6-10.3) mg/dL Consult Discharge Plan - Plan Additional Instructions: 1. Podiatry will sign off. 2. Follow up with Dr. Bell following the amputation. 3. Follow up as needed for the left foot with Dr. Walker. [facility] [place] [facility] - Segundo Bell MD [Partnered Physician] - (needs two week follow up if does not already have followup appt)
[2018-06-28] MEDS: cefTRIAXone 2,000 MG in Water for inj. (sterile) 20 ML 20 ML IVP SCH (17:05)
[2018-06-28 17:39] LABS: VBG HCO3 21 mEq/L (21-27); VBG PCO2 41 mmHg (41-51); VBG PH 7.31 pH Units (7.32-7.42); VBG PO2 125 mmHg (25-50)
[2018-06-28 19:52] LABS: ABG Base Excess -4 mEq/L (-2 to 3); ABG HCO3 21 mEq/L (21-27); ABG Oxygen Saturation 93 % (95-98); ABG PCO2 40 mmHg (35-45); ABG PH 7.34 pH Units (7.32-7.45); ABG PO2 73 mmHg (85-104); ABG TCO2 23 mEq/L (20-26)
[2018-06-28 20:35] LABS: Basophils % 0.2 %; Eosinophils # 0.1 K/mcL (0.0-0.6); Eosinophils % 0.7 %; Hemoglobin 7.4 g/dL (11.5-15.4); Immature Granulocytes % 0.6 % (0-4); Lymphocytes # 1.2 K/mcL (0.6-4.6); Lymphocytes % 11.1 %; Mean Corpuscular HGB Conc 29.6 g/dL (31.6-35.5); Mean Corpuscular Hemoglobin 25.3 pg (28.0-33.3); Mean Corpuscular Volume 85.3 fL (83.0-100.0); Mean Platelet Volume 9.1 fL (9.4-12.4); Monocytes # 0.8 K/mcL (0.0-1.3); Monocytes % 7.6 %; Neutrophils # 8.6 K/mcL (1.6-8.9); Platelet Count 415 K/mcL (140-400); Red Blood Count 2.93 M/mcL (3.82-4.97); Red Cell Distribution Width 17.3 % (11.5-14.5); Segmented Neutrophils % 79.8 %
--- NOTE | 2018-06-28 20:43 | Event Note ---
Date of Encounter: 06/28/18 Time of Encounter: 19:31 Notified by nurse of patient having increased lethargy and decreased responsiveness throughout day today thought to be due to sedating medications with decreased renal function. Assessed patient at bedside with Dr Coleman. Patient arousable only to sternal rub. Pupils equal and reactive. Vitals stable. No signs of bleeding. Head CT, ABG, and repeat labs ordered. Sedating medications held for now.
[2018-06-28 20:52] LABS: Calcium 7.9 mg/dL (8.6-10.3); Potassium 4.6 mEq/L (3.5-5.1)
[2018-06-29 03:35] LABS: Basophils % 0.4 %; Eosinophils # 0.1 K/mcL (0.0-0.6); Eosinophils % 0.5 %; Hematocrit 26.1 % (35.3-44.9); Hemoglobin 7.7 g/dL (11.5-15.4); Immature Granulocytes % 0.7 % (0-4); Lymphocytes # 0.9 K/mcL (0.6-4.6); Lymphocytes % 8.4 %; Mean Corpuscular HGB Conc 29.5 g/dL (31.6-35.5); Mean Corpuscular Volume 84.7 fL (83.0-100.0); Mean Platelet Volume 9.2 fL (9.4-12.4); Monocytes # 0.7 K/mcL (0.0-1.3); Monocytes % 6.1 %; Neutrophils # 9.3 K/mcL (1.6-8.9); Platelet Count 433 K/mcL (140-400); Red Blood Count 3.08 M/mcL (3.82-4.97); Red Cell Distribution Width 17.2 % (11.5-14.5); Segmented Neutrophils % 83.9 %
[2018-06-29 03:53] LABS: Calcium 8.1 mg/dL (8.6-10.3); Potassium 4.6 mEq/L (3.5-5.1)
[2018-06-29] MEDS: *HR* Enoxaparin 40 MG/0.4 ML SYRINGE SQ SCH (05:39)
[2018-06-29] MEDS ORDERED: *HR* Metoprolol 5 MG/5 ML VIAL IVP ONE (06:04)
[2018-06-29] MEDS: Ringers Solution, Lactated 1,000 ML IVC SCH (06:21)
[2018-06-29] MEDS ORDERED: Aminoglycoside Consult 1 EACH MC ONE (08:31)
--- NOTE | 2018-06-29 09:29 | Electrocardiograph Report ---
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
[2018-06-29] MEDS: Aspirin 81 MG TAB.CHEW PO SCH (10:05)
[2018-06-29] MEDS: Insulin DETEMIR 100 UNIT/ML X5UNITS SQ SCH (10:05)
[2018-06-29] MEDS: Gabapentin 300 MG CAPSULE PO SCH ×2 (10:06→20:44)
[2018-06-29] MEDS: Famotidine 20 MG TABLET PO SCH (10:06)
[2018-06-29] MEDS: Insulin LISPRO 300 UNITS/3 ML VIAL SQ SCH ×3 (10:06→17:35)
[2018-06-29] MEDS: Sennosides 8.6 MG TABLET PO SCH (10:06)
[2018-06-29] MEDS: amLODIPine 5 MG TABLET PO SCH (10:06)
[2018-06-29] MEDS: Magnesium Oxide 400 MG TABLET PO SCH (10:06)
--- NOTE | 2018-06-29 12:04 | Internal Med Progress Note ---
Hospitalist Progress Note - Encounter Date of Encounter: 06/29/18 Time of Encounter: 10:00 - Subjective Interval History: Overnight event noted. She started to become somnolent from yesterday PM refractory to a dose of Narcan. She was given 2mg of morphine and 10mg of SL oxy earlier during 06/28. She is more awake today although falls asleep easily. No n ew complaints. - Exam Vitals: Temp Pulse Resp BP Pulse Ox 98 F 71 15 176/89 97 06/29/18 10:42 06/29/18 10:42 06/29/18 10:42 06/29/18 10:42 06/29/18 10:42 Exam: General: Somnolent but easily arousable with voice and light stimulus, appears comfortable, non-toxic Cardiovascular:Normal S1 & S2, No JVD. Pulse regular. Lungs: clear to auscultation, no wheezes/rales Abdomen:Soft, non-tender, no rigidity. Extremities: R BKA stump dressing dry and clean - Assessment and Plan (1) Sepsis Current Visit: No Status: Acute Assessment and Plan: Meets due to fever and leukocytosis and R LE OM as source underwent R BKA 06/26, POD3 also has GPC/GNR bacteremia -> Strep agalactiae and Proteus, both sensitive to Rocephin s/p 3 days of vanc/zosyn and switched to Rocephin yesterday, to complete on 07/08 developed somnolence yesterday, likely due to adverse rxn to opioids and metabolites from morphine, in the setting of kidney impairment. No evidence of worsening sepsis (2) Encephalopathy Current Visit: Yes Status: Acute Assessment and Plan: developed somnolence yesterday, likely due to adverse rxn to opioids and metabolites from morphine, in the setting of kidney impairment. CT head -ve No evidence of worsening sepsis or respiratory acidosis (3) Osteomyelitis of right foot Current Visit: Yes Status: Acute Assessment and Plan: s/p R BKA, POD3 postop care for surgery PT/OT abx as above (4) Acute kidney injury superimposed on chronic kidney disease Current Visit: Yes Status: Acute Assessment and Plan: in the setting of sepsis, R foot OM, and R BKA hold off on lisinopril and lasix Avoid nephrotoxins, renally adjusted antibiotics continue lactated Ringer per nephrology, appreciate input (5) Type 2 diabetes mellitus Current Visit: No Status: Chronic Assessment and Plan: poor oral intake due to somnolence, will decrease levemir to 60U and keep sliding scale coverage Metformin on hold. (6) Hypertension Current Visit: No Status: Chronic Assessment and Plan: resume Norvasc and metorpolol hold ANIKA-i as above add PRN labetalol - Time Spent with Patient Total time spent is greater than 50% in coordination of care (as documented) at patient's floor/unit and/or counseling patient: Internal Medicine: Result - Labs CBC & Chem 7: 06/29/18 03:19 06/29/18 03:19 Labs: Short CBC 06/28/18 06/29/18 Range/Units 20:24 03:19 WBC 10.7 11.1 (4.3-11.1) K/mcL Hgb 7.4 L 7.7 L (11.5-15.4) g/dL Hct 25.0 L 26.1 L (35.3-44.9) % Plt Count 415 H 433 H (140-400) K/mcL Neutrophils # 8.6 9.3 H (1.6-8.9) K/mcL BMP 06/28/18 06/29/18 20:24 03:19 Sodium 134 L 134 L Potassium 4.6 4.6 Chloride 106 106 Carbon Dioxide 19 L 19 L BUN 28 H 27 H Creatinine 1.63 H 1.53 H Glucose 117 H 90 Calcium 7.9 L 8.1 L - ABG Interpretation ABG results: ABG ABG pH 7.34 pH Units (7.32-7.45) 06/28/18 19:48 ABG pCO2 40 mmHg (35-45) 06/28/18 19:48 ABG pO2 73 mmHg (85-104) L 06/28/18 19:48 ABG O2 Saturation 93 % (95-98) L 06/28/18 19:48 - Impressions Impressions Head CT 06/28/18 20:14 IMPRESSION: 1. No acute intracranial abnormality. 2. Mild global parenchymal volume loss with chronic microvascular ischemic change. 3. Scattered atherosclerosis. D/ / Toan Nagy MD / Toan Nagy MD Interpreting Provider: Toan Nagy MD Consult Discharge Plan - Plan Additional Instructions: 1. Podiatry will sign off. 2. Follow up with Dr. Bell following the amputation. 3. Follow up as needed for the left foot with Dr. Walker. Referrals: Segundo Bell MD [Partnered Physician] - (needs two week follow up if does not already have followup appt) Matteo Love MD [Primary Care Provider] - (1) Sepsis Qualifiers: Sepsis type: Streptococcus group B Qualified Code(s): A40.1 - Sepsis due to streptococcus, group B (3) Osteomyelitis of right foot Qualifiers: Osteomyelitis type: other chronic Qualified Code(s): M86.671 - Other chronic osteomyelitis, right ankle and foot (5) Type 2 diabetes mellitus Qualifiers: Diabetes mellitus joint terminal attack controller insulin use: with alf use Diabetes mellitus complication status: with hyperglycemia Qualified Code(s): E11.65 - Type 2 diabetes mellitus with hyperglycemia; Z79.4 - care home (current) use of insulin (6) Hypertension Qualifiers: Hypertension type: essential hypertension Qualified Code(s): I10 - Essential (primary) hypertension
[2018-06-29] MEDS ORDERED: *HR* OxyCODONE/APAP 5/325 TABLET PO PRN (13:02)
[2018-06-29] MEDS: *HR* Labetalol 20 MG/4 ML SYRINGE IVP PRN (15:00)
[2018-06-29] MEDS: cefTRIAXone 2,000 MG in Water for inj. (sterile) 20 ML 20 ML IVP SCH (15:00)
[2018-06-29] MEDS: D5% in Lactated Ringers 1,000 ML IVC SCH (15:01)
[2018-06-30 05:32] LABS: Basophils % 0.4 %; Eosinophils # 0.1 K/mcL (0.0-0.6); Eosinophils % 0.5 %; Hematocrit 26.3 % (35.3-44.9); Hemoglobin 8.1 g/dL (11.5-15.4); Immature Granulocytes % 0.7 % (0-4); Lymphocytes # 1.1 K/mcL (0.6-4.6); Lymphocytes % 10.5 %; Mean Corpuscular HGB Conc 30.8 g/dL (31.6-35.5); Mean Corpuscular Hemoglobin 25.2 pg (28.0-33.3); Mean Corpuscular Volume 81.9 fL (83.0-100.0); Mean Platelet Volume 9.4 fL (9.4-12.4); Monocytes # 0.8 K/mcL (0.0-1.3); Monocytes % 7.3 %; Neutrophils # 8.3 K/mcL (1.6-8.9); Platelet Count 462 K/mcL (140-400); Red Blood Count 3.21 M/mcL (3.82-4.97); Segmented Neutrophils % 80.6 %
[2018-06-30 05:48] LABS: BUN/Creatinine Ratio 18 (6-26); Blood Urea Nitrogen 21 mg/dL (6-20); Calcium 8.2 mg/dL (8.6-10.3); Carbon Dioxide 18 mEq/L (23-29); Chloride 105 mEq/L (98-107); Glucose 153 mg/dL (70-105); Osmolality,Calculated 282 (280-300); Potassium 4.3 mEq/L (3.5-5.1); Sodium 133 mEq/L (136-145); eGFR For Non-African Americans 50 (> 60)
[2018-06-30] MEDS: *HR* Enoxaparin 40 MG/0.4 ML SYRINGE SQ SCH (05:50)
[2018-06-30] MEDS: D5% in Lactated Ringers 1,000 ML IVC SCH (05:59)
[2018-06-30] MEDS: Insulin DETEMIR 100 UNIT/ML X5UNITS SQ SCH (08:51)
[2018-06-30] MEDS: Magnesium Oxide 400 MG TABLET PO SCH (08:51)
[2018-06-30] MEDS: amLODIPine 5 MG TABLET PO SCH (08:52)
[2018-06-30] MEDS: Gabapentin 300 MG CAPSULE PO SCH ×2 (08:53→22:40)
[2018-06-30] MEDS: Aspirin 81 MG TAB.CHEW PO SCH (08:53)
[2018-06-30] MEDS: Sennosides 8.6 MG TABLET PO SCH (08:53)
[2018-06-30] MEDS: Famotidine 20 MG TABLET PO SCH (08:53)
[2018-06-30] MEDS: Insulin LISPRO 300 UNITS/3 ML VIAL SQ SCH ×3 (08:53→16:59)
[2018-06-30] MEDS: *HR* Labetalol 20 MG/4 ML SYRINGE IVP PRN (11:36)
--- NOTE | 2018-06-30 12:30 | Internal Med Progress Note ---
Hospitalist Progress Note - Encounter Date of Encounter: 06/30/18 Time of Encounter: 10:00 - Subjective Interval History: Much more awake and alert today. No significant pain over R BKA stump. Denies any chest pain, fever/chills, shortness of breath or cough. - Exam Vitals: Temp Pulse Resp BP Pulse Ox 97.7 F 70 15 194/74 96 06/30/18 10:50 06/30/18 10:50 06/30/18 10:50 06/30/18 10:50 06/30/18 10:50 Exam: General: Awake and alert, oriented x 4, appears comfortable, non-toxic Cardiovascular:Normal S1 & S2, No JVD. Pulse regular. Lungs: clear to auscultation, no wheezes/rales Abdomen:Soft, non-tender, no rigidity. Extremities: R BKA stump dressing dry and clean - Assessment and Plan (1) Sepsis Current Visit: No Status: Acute Assessment and Plan: Meets due to fever and leukocytosis and R LE OM as source underwent R BKA 06/26, POD4 ?concern for redness on the stump, will defer to surgery eval also has GPC/GNR bacteremia -> Strep agalactiae and Proteus, both sensitive to Rocephin s/p 3 days of vanc/zosyn and switched to Rocephin on 06/28, to complete on 07/08 (2) Osteomyelitis of right foot Current Visit: Yes Status: Acute Assessment and Plan: s/p R BKA, POD4 postop care for surgery PT/OT abx as above (3) Acute kidney injury superimposed on chronic kidney disease Current Visit: Yes Status: Resolved Assessment and Plan: in the setting of sepsis, R foot OM, and R BKA resume home meds Avoid nephrotoxins, renally adjusted antibiotics will d/c IVF as well (4) Encephalopathy Current Visit: Yes Status: Resolved Assessment and Plan: developed somnolence on 06/28, likely due to adverse rxn to opioids and metabolites from morphine, in the setting of kidney impairment. Much more awake and alert today with improvement in her kidney function as well CT head -ve No evidence of worsening sepsis or respiratory acidosis (5) Type 2 diabetes mellitus Current Visit: No Status: Chronic Assessment and Plan: poor oral intake due to somnolence but improving levemir at lower dose, keep sliding scale coverage Metformin on hold. (6) Hypertension Current Visit: No Status: Chronic Assessment and Plan: resume Norvasc and metorpolol ANIKA-i resumed as well PRN labetalol DVT Prophylaxis: Subcutaneous Lovenox - Time Spent with Patient Total time spent is greater than 50% in coordination of care (as documented) at patient's floor/unit and/or counseling patient: Plan of Care Discussed with: patient Internal Medicine: Result - Labs CBC & Chem 7: 06/30/18 05:01 06/30/18 05:01 Labs: Short CBC 06/30/18 Range/Units 05:01 WBC 10.2 (4.3-11.1) K/mcL Hgb 8.1 L (11.5-15.4) g/dL Hct 26.3 L (35.3-44.9) % Plt Count 462 H (140-400) K/mcL Neutrophils # 8.3 (1.6-8.9) K/mcL BMP 06/30/18 05:01 Sodium 133 L Potassium 4.3 Chloride 105 Carbon Dioxide 18 L BUN 21 H Creatinine 1.14 Glucose 153 H Calcium 8.2 L - ABG Interpretation ABG results: ABG ABG pH 7.34 pH Units (7.32-7.45) 06/28/18 19:48 ABG pCO2 40 mmHg (35-45) 06/28/18 19:48 ABG pO2 73 mmHg (85-104) L 06/28/18 19:48 ABG O2 Saturation 93 % (95-98) L 06/28/18 19:48 Consult Discharge Plan - Plan Additional Instructions: 1. Podiatry will sign off. 2. Follow up with Dr. Bell following the amputation. 3. Follow up as needed for the left foot with Dr. Walker. Referrals: Segundo Bell MD [Partnered Physician] - (needs two week follow up if does not already have followup appt) Matteo Love MD [Primary Care Provider] - (1) Sepsis Qualifiers: Sepsis type: Streptococcus group B Qualified Code(s): A40.1 - Sepsis due to streptococcus, group B (2) Osteomyelitis of right foot Qualifiers: Osteomyelitis type: other chronic Qualified Code(s): M86.671 - Other chronic osteomyelitis, right ankle and foot (5) Type 2 diabetes mellitus Qualifiers: Diabetes mellitus assisted insulin use: with termite renewal inspector use Diabetes mellitus complication status: with hyperglycemia Qualified Code(s): E11.65 - Type 2 diabetes mellitus with hyperglycemia; Z79.4 - termite renewal inspector (current) use of insulin (6) Hypertension Qualifiers: Hypertension type: essential hypertension Qualified Code(s): I10 - Essential (primary) hypertension
[2018-06-30] MEDS: cefTRIAXone 2,000 MG in Water for inj. (sterile) 20 ML 20 ML IVP SCH (13:25)
--- NOTE | 2018-06-30 17:03 | General Surgery Progress Note ---
<Malgorzata Pierre - Last Filed: 06/30/18 17:00> Date of Encounter: 06/30/18 Time of Encounter: 10:00 - Assessment and Plan (1) S/P BKA (below knee amputation) Current Visit: Yes Status: Acute Surgery called back to evaluate red/warm R BKA stump. Area is found to be edematous and slightly erythematic. Minimal amount of SS drainage noted on dr rossi. One staple was removed (middle aspect of incision). No pus was expressed. 1/4 plain gauze placed for wicking purposes. Covered with a dry dressing. This is not likely the cause of patient's mental status changes as no significant evidence for infection. WBC is normal Will continue to monitor. see wound care order for instructions Qualifiers: Laterality: right Qualified Code(s): Z89.511 - Acquired absence of right leg below knee (2) Encephalopathy Current Visit: Yes Status: Resolved Subjective Patient reports: no new complaints, still having pain, pain is less, tolerating liquids well, voiding w/o difficulty, flatus, bowel movement, afebrile, other (drowsy) Objective Vital Signs - Last 8 Hours Temp Pulse Resp BP Pulse Ox 06/30/18 15:37 98.5 F 76 19 180/77 95 06/30/18 13:25 179/80 06/30/18 10:50 97.7 F 70 15 194/74 96 Intake and Output 06/30/18 06/30/18 06/30/18 07:59 15:59 23:59 Intake Total 704 / 704 0 / 0 Output Total 900 / 900 400 / 400 Balance -196 / -196 -400 / -400 Intake: IV Fluids 704 / 704 D5% & Lact. Ringers 1000 Ml Bag 684 / 684 1,000 ML @ 75 mls/hr IVC . [id number] NATE Rx#:[id number] Rocephin 2,000 MG In Water for 20 / 20 inj. (sterile) 20 ML @ 600 mls/ hr IVP Q24H NATE Rx#:[id number] Oral 0 / 0 0 / 0 Output: Urine 400 / 400 Catheter 900 / 900 Other: Blood Glucose* 222 172 - General physical appearance no distress, moderate pain (when manipulating BKA. Drowsy otherwise) - ENT poor fdc, atraumatic, normocephalic - Neck Neck exam: trachea midline - Respiratory other (decreased) - Cardiovascular Cardiovascular exam: Present: distant heart sounds - Abdomen Abdomen: Present: bowel sounds present, soft, non tender Hernia: none - Incision Incision: Present: clean and dry, intact (Overall intact. One small area of SS drainage noted. There is swelling and erythema consistent with reactionary. See assessment and plan for further detail) - Integumentary no rash - Neurologic normal sensation, other (Drowsy) - Musculoskeletal normal posture - Psychiatric other (Drowsy but oriented) - Labs 06/30/18 05:01 06/30/18 05:01 Diabetes panel 06/30/18 Range/Units 05:01 Sodium 133 L (136-145) mEq/L Potassium 4.3 (3.5-5.1) mEq/L Chloride 105 (98-107) mEq/L Carbon Dioxide 18 L (23-29) mEq/L BUN 21 H (6-20) mg/dL Creatinine 1.14 (0.60-1.20) mg/dL Glucose 153 H (70-105) mg/dL Calcium 8.2 L (8.6-10.3) mg/dL Calcium panel 06/30/18 Range/Units 05:01 Calcium 8.2 L (8.6-10.3) mg/dL Pituitary panel 06/30/18 Range/Units 05:01 Sodium 133 L (136-145) mEq/L Potassium 4.3 (3.5-5.1) mEq/L Chloride 105 (98-107) mEq/L Carbon Dioxide 18 L (23-29) mEq/L BUN 21 H (6-20) mg/dL Creatinine 1.14 (0.60-1.20) mg/dL Glucose 153 H (70-105) mg/dL Calcium 8.2 L (8.6-10.3) mg/dL Adrenal panel 06/30/18 Range/Units 05:01 Sodium 133 L (136-145) mEq/L Potassium 4.3 (3.5-5.1) mEq/L Chloride 105 (98-107) mEq/L Carbon Dioxide 18 L (23-29) mEq/L BUN 21 H (6-20) mg/dL Creatinine 1.14 (0.60-1.20) mg/dL Glucose 153 H (70-105) mg/dL Calcium 8.2 L (8.6-10.3) mg/dL Consult Discharge Plan - Plan Additional Instructions: 1. Podiatry will sign off. 2. Follow up with Dr. Bell following the amputation. 3. Follow up as needed for the left foot with Dr. Walker. Referrals: Segundo Bell MD [Partnered Physician] - (needs two week follow up if does not already have followup appt) Matteo Love MD [Primary Care Provider] - <Kylie Barrientos - Last Filed: 07/01/18 08:17> Date of Encounter: 07/01/18 - Assessment and Plan (1) S/P BKA (below knee amputation) Current Visit: Yes Status: Acute Qualifiers: Laterality: right Qualified Code(s): Z89.511 - Acquired absence of right leg below knee Objective Vital Signs - Last 8 Hours Temp Pulse Resp BP Pulse Ox 07/01/18 06:47 97.9 F 67 16 151/81 94 07/01/18 04:05 98.3 F 68 14 195/82 95 07/01/18 00:22 98.9 F 72 16 172/78 95 Intake and Output 06/30/18 07/01/18 07/01/18 23:59 07:59 15:59 Intake Total 240 / 240 0 / 0 Output Total 400 / 400 350 / 350 Balance -160 / -160 -350 / -350 Intake: Oral 240 / 240 0 / 0 Output: Urine 400 / 400 Catheter 0 / 0 350 / 350 Other: Meal Dinner Percent of Meal Consumed 10% # Bowel Movements 0 0 Blood Glucose* 232 173 - Labs 07/01/18 05:18 07/01/18 05:18 Diabetes panel 07/01/18 Range/Units 05:18 Sodium 134 L (136-145) mEq/L Potassium 3.9 (3.5-5.1) mEq/L Chloride 106 (98-107) mEq/L Carbon Dioxide 20 L (23-29) mEq/L BUN 24 H (6-20) mg/dL Creatinine 1.19 (0.60-1.20) mg/dL Glucose 201 H (70-105) mg/dL Calcium 8.3 L (8.6-10.3) mg/dL Calcium panel 07/01/18 Range/Units 05:18 Calcium 8.3 L (8.6-10.3) mg/dL Pituitary panel 07/01/18 Range/Units 05:18 Sodium 134 L (136-145) mEq/L Potassium 3.9 (3.5-5.1) mEq/L Chloride 106 (98-107) mEq/L Carbon Dioxide 20 L (23-29) mEq/L BUN 24 H (6-20) mg/dL Creatinine 1.19 (0.60-1.20) mg/dL Glucose 201 H (70-105) mg/dL Calcium 8.3 L (8.6-10.3) mg/dL Adrenal panel 07/01/18 Range/Units 05:18 Sodium 134 L (136-145) mEq/L Potassium 3.9 (3.5-5.1) mEq/L Chloride 106 (98-107) mEq/L Carbon Dioxide 20 L (23-29) mEq/L BUN 24 H (6-20) mg/dL Creatinine 1.19 (0.60-1.20) mg/dL Glucose 201 H (70-105) mg/dL Calcium 8.3 L (8.6-10.3) mg/dL - Attending Attestation I have personally performed a face to face evaluation on this patient. I have reviewed and agree with the care plan. History and Exam by me shows:
[2018-07-01] MEDS: *HR* Labetalol 20 MG/4 ML SYRINGE IVP PRN (04:11)
[2018-07-01 05:50] LABS: Basophils % 0.4 %; Eosinophils # 0.1 K/mcL (0.0-0.6); Hematocrit 26.2 % (35.3-44.9); Hemoglobin 8.2 g/dL (11.5-15.4); Immature Granulocytes % 0.7 % (0-4); Lymphocytes # 1.3 K/mcL (0.6-4.6); Mean Corpuscular HGB Conc 31.3 g/dL (31.6-35.5); Mean Corpuscular Hemoglobin 25.5 pg (28.0-33.3); Mean Corpuscular Volume 81.4 fL (83.0-100.0); Mean Platelet Volume 9.2 fL (9.4-12.4); Monocytes % 9.9 %; Neutrophils # 7.3 K/mcL (1.6-8.9); Platelet Count 478 K/mcL (140-400); Red Blood Count 3.22 M/mcL (3.82-4.97); Red Cell Distribution Width 17.2 % (11.5-14.5)
[2018-07-01 06:12] LABS: Calcium 8.3 mg/dL (8.6-10.3); Potassium 3.9 mEq/L (3.5-5.1)
[2018-07-01] MEDS: *HR* Enoxaparin 40 MG/0.4 ML SYRINGE SQ SCH (06:24)
[2018-07-01] MEDS: Famotidine 20 MG TABLET PO SCH (07:46)
[2018-07-01] MEDS: Magnesium Oxide 400 MG TABLET PO SCH (07:47)
[2018-07-01] MEDS: Aspirin 81 MG TAB.CHEW PO SCH (07:47)
[2018-07-01] MEDS: Gabapentin 300 MG CAPSULE PO SCH (07:47)
[2018-07-01] MEDS: Sennosides 8.6 MG TABLET PO SCH (07:48)
[2018-07-01] MEDS: amLODIPine 5 MG TABLET PO SCH (07:48)
[2018-07-01] MEDS: Insulin LISPRO 300 UNITS/3 ML VIAL SQ SCH ×2 (08:13→11:14)
--- NOTE | 2018-07-01 09:23 | General Surgery Progress Note ---
Date of Encounter: 07/01/18 Time of Encounter: 09:00 - Assessment and Plan (1) S/P BKA (below knee amputation) Current Visit: Yes Status: Acute Erythema improved. Small amount of SS drainage (compatible with seroma/hematoma fluid as opposed to infectious fluid noted). There are 2 small areas of packing in the middle left and middle right aspect of the incision- for wicking purposes only. Margins were drawn around the erythema. May discontinue packing when less than 1 cm packing needed and erythema has improved. See wound care instructions in d/c plan and orders Noted plans for d/c today per primary team. Follow-up made. RX for percocet and stool softener printed. will (not) need Rxs for wound care supplies given that [facility]. Qualifiers: Laterality: right Qualified Code(s): Z89.511 - Acquired absence of right leg below knee (2) Encephalopathy Current Visit: Yes Status: Resolved Subjective Patient reports: no new complaints, feels better, still having pain, pain is less, tolerating liquids well, voiding w/o difficulty, flatus, bowel movement, afebrile Objective Vital Signs - Last 8 Hours Temp Pulse Resp BP Pulse Ox 07/01/18 08:20 98 07/01/18 06:47 97.9 F 67 16 151/81 94 07/01/18 04:05 98.3 F 68 14 195/82 95 Intake and Output 06/30/18 07/01/18 07/01/18 23:59 07:59 15:59 Intake Total 240 / 240 0 / 0 120 / 120 Output Total 400 / 400 350 / 350 Balance -160 / -160 -350 / -350 120 / 120 Intake: Oral 240 / 240 0 / 0 120 / 120 Output: Urine 400 / 400 Catheter 0 / 0 350 / 350 Other: Meal Dinner Breakfast Percent of Meal Consumed 10% 100% # Bowel Movements 0 0 Blood Glucose* 232 173 - General physical appearance no distress, no pain - Eyes normal ocular movement - ENT poor jail - Neck Neck exam: trachea midline - Respiratory normal expansion, normal respiratory effort - Cardiovascular Cardiovascular exam: Present: RRR - Abdomen Abdomen: Present: bowel sounds present, soft, non tender Hernia: none - Integumentary no rash, other (Right BKA incision erythema has improved overnight. Margins were drawn today. There are 2 areas of packing for wicking purposes only.) - Neurologic normal sensation - Musculoskeletal normal posture - Psychiatric oriented to time, oriented to person, oriented to place, speech is normal, memory intact - Labs 07/01/18 05:18 07/01/18 05:18 Diabetes panel 07/01/18 Range/Units 05:18 Sodium 134 L (136-145) mEq/L Potassium 3.9 (3.5-5.1) mEq/L Chloride 106 (98-107) mEq/L Carbon Dioxide 20 L (23-29) mEq/L BUN 24 H (6-20) mg/dL Creatinine 1.19 (0.60-1.20) mg/dL Glucose 201 H (70-105) mg/dL Calcium 8.3 L (8.6-10.3) mg/dL Calcium panel 07/01/18 Range/Units 05:18 Calcium 8.3 L (8.6-10.3) mg/dL Pituitary panel 07/01/18 Range/Units 05:18 Sodium 134 L (136-145) mEq/L Potassium 3.9 (3.5-5.1) mEq/L Chloride 106 (98-107) mEq/L Carbon Dioxide 20 L (23-29) mEq/L BUN 24 H (6-20) mg/dL Creatinine 1.19 (0.60-1.20) mg/dL Glucose 201 H (70-105) mg/dL Calcium 8.3 L (8.6-10.3) mg/dL Adrenal panel 07/01/18 Range/Units 05:18 Sodium 134 L (136-145) mEq/L Potassium 3.9 (3.5-5.1) mEq/L Chloride 106 (98-107) mEq/L Carbon Dioxide 20 L (23-29) mEq/L BUN 24 H (6-20) mg/dL Creatinine 1.19 (0.60-1.20) mg/dL Glucose 201 H (70-105) mg/dL Calcium 8.3 L (8.6-10.3) mg/dL Consult Discharge Plan - Plan Instructions: Below the Knee Amputation (DC) Additional Instructions: 1. Podiatry will sign off. 2. Follow up with Dr. Bell following the amputation. 3. Follow up as needed for the left foot with Dr. Walker. Surgical Instructions: 1. Keep knee immobilizer in place until seen in follow-up 2. continue daily dressing changes: remove aneudy wrap, dressing, packing. Wash with antibacterial soap. Loosely repack with 1/4 inch plain gauze for wicking purposes only. Cover with a dry dressing. Tape to secure. Wrapping curl X. Replace aneudy wrap. Replace knee immobilizer. 2a. May d/c packing when less than 1 cm of packing needed 3. Report immediately if erythema is outside the drawn margins. 4. Apply Ice prn 5. OOB with PT/OT only. 6. PRN percocet for pain control. Take stool softener BID while taking narcotics. Do not take narcotics on an empty stomach. Referrals: Matteo Love MD [Primary Care Provider] - Segundo Bell MD [Partnered Physician] - 07/15/18 8:55 am () Prescriptions: OxyCODONE/APAP 5/325 [Percocet 5/325 MG] 1 each PO Q6HR PRN 7 Days #28 tablet PRN Reason: Pain Docusate Sodium [Colace] 100 mg PO BID PRN #30 capsule PRN Reason: Constipation
[2018-07-01] MEDS: Insulin DETEMIR 100 UNIT/ML X5UNITS SQ SCH (09:52)
--- NOTE | 2018-07-01 10:27 | Discharge Summary ---
- NOTES TO OUTPATIENT PROVIDER Notes to Outpatient Provider: Patient was admitted for severe sepsis secondary to right leg osteomyelitis and polymicrobial bacteremia. Underwent R BKA and treated with IV Rocephin. Repeat blood culture 06/26 -ve. Of note, she had prolonged period of somnolence with IV Morphine hence judicious administration of analgesics would be recommended. HTN meds were also adjusted. Will be discharged with IV Gabe to be completed on 07/09 and wound care per surgery. CBC, BMP in 1 week. Restart lasix as indicated. Orders not resulted at time of discharge: Pending orders 06/26/18 23:42 Surgical Pathology [PTH] Routine Date of Encounter: 07/01/18 Time of Encounter: 08:00 - Discharge Diagnosis (1) Sepsis Priority: Primary Status: Acute Qualifiers: Sepsis type: Streptococcus group B Qualified Code(s): A40.1 - Sepsis due to streptococcus, group B (2) Osteomyelitis of right foot Priority: Secondary Status: Acute Qualifiers: Osteomyelitis type: other chronic Qualified Code(s): M86.671 - Other chronic osteomyelitis, right ankle and foot (3) Acute kidney injury superimposed on chronic kidney disease Priority: Secondary Status: Resolved (4) Encephalopathy Priority: Secondary Status: Resolved (5) Type 2 diabetes mellitus Priority: Secondary Status: Chronic Qualifiers: Diabetes mellitus halfway insulin use: with termite helper use Diabetes mellitus complication status: with hyperglycemia Qualified Code(s): E11.65 - Type 2 diabetes mellitus with hyperglycemia; Z79.4 - half-way (current) use of insulin (6) Hypertension Priority: Secondary Status: Chronic Qualifiers: Hypertension type: essential hypertension Qualified Code(s): I10 - Essential (primary) hypertension Hospital course: Ms. Mccallum is a 52 year old female was admitted for severe sepsis secondary to right leg osteomyelitis and polymicrobial bacteremia. Underwent R BKA and treated with IV Rocephin. Repeat blood culture 06/26 -ve. Of note, she had prolonged period of somnolence with IV Morphine hence judicious administration of analgesics would be recommended. HTN meds were also adjusted. Will be discharged with IV Gabe to be completed on 07/09 and wound care per surgery. Will also benefit from outpatient sleep study as I feel that part of her daytime somnolence is related to that. Discharge discussed with: patient, nurse, case management - Time Spent with Patient Total time spent providing and/or coordinating discharge services: 36 mins - Discharge Medications Prescriptions: OxyCODONE/APAP 5/325 [Percocet 5/325 MG] 1 each PO Q6HR PRN 7 Days #28 tablet PRN Reason: Pain Docusate Sodium [Colace] 100 mg PO BID PRN #30 capsule PRN Reason: Constipation Metoprolol [Lopressor] 25 mg PO BID #60 tablet Home Medications: Atorvastatin Calcium [Lipitor] 80 mg PO DAILY 08/21/16 [History] Clopidogrel [Plavix] 75 mg PO DAILY 08/21/16 [History] Ferrous Sulfate 325 mg PO BIDWM 08/21/16 [History] Gabapentin [Neurontin] 300 mg PO BID 08/21/16 [History] Lisinopril [Zestril] 10 mg PO DAILY 08/21/16 [History] Magnesium Oxide [Magnesium] 400 mg PO DAILY 08/21/16 [History] Nitroglycerin [Nitrostat] 0.4 mg SL Q5M PRN 08/21/16 [History] Ranitidine HCl [Acid Protection Officer] 150 mg PO BID 08/21/16 [History] Sertraline [Zoloft] 100 mg PO DAILY 08/21/16 [History] Metformin HCl [Glucophage] 1,000 mg PO BID 03/28/17 [History] Insulin ASPART [NovoLOG] 0 unit SQ TIDWM 06/19/17 [History] Sennosides [Senna] 8.6 mg PO DAILY 06/19/17 [History] Insulin Glargine,Hum.rec.anlog [Basaglar Kwikpen U-100] 60 unit SQ QAM 12/30/17 [History] amLODIPine [Norvasc] 10 mg PO DAILY 30 Days #30 tablet 02/07/18 [Rx] Aspirin 81 mg PO DAILY 30 Days #30 tab.chew 04/22/18 [Rx] Acetaminophen [Tylenol] 650 mg PO Q6HR PRN tablet 07/01/18 [Rx] Docusate Sodium [Colace] 100 mg PO BID PRN #30 capsule 07/01/18 [Rx] Metoprolol [Lopressor] 25 mg PO BID #60 tablet 07/01/18 [Rx] OxyCODONE/APAP 5/325 [Percocet 5/325 MG] 1 each PO Q6HR PRN 7 Days #28 tablet 07/01/18 [Rx] Allergies/Adverse Reactions: Allergy/AdvReac Type Severity Reaction Status Date / Time Hydromorphone [From Dilaudid] Allergy Palpitation Verified 06/25/18 14:52 s heparin AdvReac See Verified 06/25/18 14:52 Comments Date of admission: 06/26/18 06:26 Primary care physician: Matteo Love MD Consults: 06/26/18 09:39 Consult to Surgery [CONS] Routine Consulting Provider: [facility] Reason for Consult: Right foot osteomylitis Call Completed: Yes 06/27/18 10:23 Consult to Occupational Therapy [CONS] Routine Comment: Evaluate, develop and implement POC Reason for Consult: Mobilization and DC planning Does patient have active BEDREST order?: No Is patient medically & hemodynamically stable?: Yes Patient assessed for mobility or mobilized this visit?: No Consult to Physical Therapy [CONS] Routine Comment: Evaluate, develop and implement POC Reason for Consult: Mobilization and DC planning Does patient have active BEDREST order?: No Is patient medically & hemodynamically stable?: Yes Patient assessed for mobility or mobilized this visit?: No 06/27/18 10:24 Consult to Post Secondary Professional [CONS] Routine Reason for SW Consult: Rehab placement s/p BKA. 06/30/18 10:19 Consult to Nutrition [CONS] Routine Comment: Consulting Provider: NUTRITION Reason for Dietary Consult: PO Supplementation Diet Education - Constitutional Vitals: Temp Pulse Resp BP Pulse Ox 97.9 F 67 16 151/81 98 07/01/18 06:47 07/01/18 06:47 07/01/18 06:47 07/01/18 06:47 07/01/18 08:20 General appearance: Present: A&O X 3, morbidly obese, no acute distress Exam: General: Awake and alert, oriented x 4, appears comfortable, non-toxic Cardiovascular:Normal S1 & S2, No JVD. Pulse regular. Lungs: clear to auscultation, no wheezes/rales Abdomen:Soft, non-tender, no rigidity. Extremities: R BKA stump dressing dry and clean - Patient Status Disposition: Transfer SNF Condition: Fair Overall status at discharge: patient is progressing back to baseline - Discharge Instructions Instructions: Below the Knee Amputation (DC), Diabetes Mellitus Type 2 in Adults (DC), Sepsis (DC) Follow Up With: Segundo Bell MD [Partnered Physician] - 07/15/18 8:55 am () Matteo Love MD [Primary Care Provider] - Additional Instructions: 1. Podiatry will sign off. 2. Follow up with Dr. Bell following the amputation. 3. Follow up as needed for the left foot with Dr. Walker. Surgical Instructions: 1. Keep knee immobilizer in place until seen in follow-up 2. continue daily dressing changes: remove aneudy wrap, dressing, packing. Wash with antibacterial soap. Loosely repack with 1/4 inch plain gauze for wicking purposes only. Cover with a dry dressing. Tape to secure. Wrapping curl X. Replace aneudy wrap. Replace knee immobilizer. 2a. May d/c packing when less than 1 cm of packing needed 3. Report immediately if erythema is outside the drawn margins. 4. Apply Ice prn 5. OOB with PT/OT only. 6. PRN percocet for pain control. Take stool softener BID while taking narcotics. Do not take narcotics on an empty stomach. - Diet and Activity Activity: as per physical therapy Diet: diabetic diet
--- NOTE | 2018-07-01 10:36 | Physician Discharge Referral ---
ExtendedCare Referral Info Institutional Level of Care: Skilled - Diagnosis (1) Sepsis Priority: Primary Status: Acute (2) Osteomyelitis of right foot Priority: Secondary Status: Acute (3) Acute kidney injury superimposed on chronic kidney disease Priority: Secondary Status: Resolved (4) Encephalopathy Priority: Secondary Status: Resolved (5) Type 2 diabetes mellitus Priority: Secondary Status: Chronic (6) Hypertension Priority: Secondary Status: Chronic - Transfer Medications Prescriptions: OxyCODONE/APAP 5/325 [Percocet 5/325 MG] 1 each PO Q6HR PRN 7 Days #28 tablet PRN Reason: Pain Docusate Sodium [Colace] 100 mg PO BID PRN #30 capsule PRN Reason: Constipation Metoprolol [Lopressor] 25 mg PO BID #60 tablet Home Medications: Atorvastatin Calcium [Lipitor] 80 mg PO DAILY 08/21/16 [History] Clopidogrel [Plavix] 75 mg PO DAILY 08/21/16 [History] Ferrous Sulfate 325 mg PO BIDWM 08/21/16 [History] Gabapentin [Neurontin] 300 mg PO BID 08/21/16 [History] Lisinopril [Zestril] 10 mg PO DAILY 08/21/16 [History] Magnesium Oxide [Magnesium] 400 mg PO DAILY 08/21/16 [History] Nitroglycerin [Nitrostat] 0.4 mg SL Q5M PRN 08/21/16 [History] Ranitidine HCl [Acid License Distributor] 150 mg PO BID 08/21/16 [History] Sertraline [Zoloft] 100 mg PO DAILY 08/21/16 [History] Metformin HCl [Glucophage] 1,000 mg PO BID 03/28/17 [History] Insulin ASPART [NovoLOG] 0 unit SQ TIDWM 06/19/17 [History] Sennosides [Senna] 8.6 mg PO DAILY 06/19/17 [History] Insulin Glargine,Hum.rec.anlog [Basaglar Kwikpen U-100] 60 unit SQ QAM 12/30/17 [History] amLODIPine [Norvasc] 10 mg PO DAILY 30 Days #30 tablet 02/07/18 [Rx] Aspirin 81 mg PO DAILY 30 Days #30 tab.chew 04/22/18 [Rx] Acetaminophen [Tylenol] 650 mg PO Q6HR PRN tablet 11/20/18 [Rx] Docusate Sodium [Colace] 100 mg PO BID PRN #30 capsule 07/01/18 [Rx] Metoprolol [Lopressor] 25 mg PO BID #60 tablet 07/01/18 [Rx] OxyCODONE/APAP 5/325 [Percocet 5/325 MG] 1 each PO Q6HR PRN 7 Days #28 tablet 07/01/18 [Rx] Allergies/Adverse Reactions: Allergy/AdvReac Type Severity Reaction Status Date / Time Hydromorphone [From Dilaudid] Allergy Palpitation Verified 06/25/18 14:52 s heparin AdvReac See Verified 06/25/18 14:52 Comments - Respiratory Orders Smoking Cessation: Smoking cessation has been advised. For more information, call the [employer] Tobacco Quit Line at 4-439-FXJF-NOW. - Treatments List/Other: IV Rocephin 2g daily till 07/09 CBC, BMP in 1 week Wound care per surgery instructions CERTIFICATION: I certify that the transfer of the above named patient to an Extended Care Facility is necessary for the continuing treatment of the diagnosis listed. The above information is true and accurate reflection of patient's current condition. Confidential - Redisclosure prohibited without a patient's written consent.
[2018-07-01 11:03] VITALS: BP 150/82
== END 2018-07-01 14:46 | DRG 710 ==
LOC: EMEROOARM 14:46 → 3ANU 14:46 → SUATTDRO 06-26 06:26
PROVIDERS: ADMIT Internal Medicine; ATTEND Internal Medicine

== ENCOUNTER 2018-10-07 17:42 | Inpatient (IN) ==
--- NOTE | 2018-10-07 19:07 | Emergency Department Note ---
Disposition Clinical Impression: Hyperglycemia, Chronic venous insufficiency, Cellulitis of left lower extremity, REMY (acute kidney injury) Pneumonia Qualifiers: Pneumonia type: due to unspecified organism Laterality: right Lung location: lower lobe of lung Qualified Code(s): J18.1 - Lobar pneumonia, unspecified orga nism Disposition: Still a Patient Condition: Undetermined Referrals: Matteo Love MD [Primary Care Provider] - Forms: ED Satisfaction Letter, Work/School Release Time of Disposition: 19:51 General Adult HPI - General Chief complaint: ED General Medical Stated complaint: Elevated Blood Glucose Time Seen by Provider: 10/07/18 18:05 Source: patient, family Mode of arrival: ambulatory Limitations: no limitations Nursing Notes Reviewed: Yes Vital Signs Reviewed: Yes - History of Present Illness HPI Narrative: 53-year-old female with history of poorly controlled diabetes, peripheral neuro preston, arrives to the emergency department with complaint of elevated glucose. The patient states that she was at home and was noted to have a glucose in the 480s. She states that she took 39 units of insulin and subsequently akua to the 580s. The patient states that she decided come to the emergency department after recommendation by nurse. The patient states that this is only happened once before that was this high and it was prior to the patient having a BKA of the right lower extremity secondary to infection. The patient is currently undergoing wound therapy for the left lower extremity. The patient's left lower surety is wrapped and care for by wound care here at [facility]. She denies any chest pain, difficulty breathing, fevers at this time but does note that she did have a fever 1 day ago. Patient denies any other complaints at this time. Pain Scale: 0 - Related Data Home Medications Medication Instructions Recorded Confirmed Atorvastatin Calcium [Lipitor] 80 mg PO DAILY 08/21/16 06/25/18 Clopidogrel [Plavix] 75 mg PO DAILY 08/21/16 06/25/18 Ferrous Sulfate 325 mg PO BIDWM 08/21/16 06/25/18 Gabapentin [Neurontin] 300 mg PO BID 08/21/16 06/25/18 Lisinopril [Zestril] 10 mg PO DAILY 08/21/16 06/25/18 Magnesium Oxide [Magnesium] 400 mg PO DAILY 08/21/16 06/25/18 Nitroglycerin [Nitrostat] 0.4 mg SL Q5M PRN 08/21/16 06/25/18 Ranitidine HCl [Acid Java Golden Gate Developer] 150 mg PO BID 08/21/16 06/25/18 Sertraline [Zoloft] 100 mg PO DAILY 08/21/16 06/25/18 Metformin HCl [Glucophage] 1,000 mg PO BID 03/28/17 06/25/18 Insulin ASPART [NovoLOG] 0 unit SQ TIDWM 06/19/17 06/25/18 Sennosides [Senna] 8.6 mg PO DAILY 06/19/17 06/25/18 Insulin Glargine,Hum.rec.anlog 60 unit SQ QAM 12/30/17 06/25/18 [Basaglbarney Romeliagaby U-100] Previous Rx's Medication Instructions Recorded amLODIPine [Norvasc] 10 mg PO DAILY 30 Days #30 tablet 02/07/18 Aspirin 81 mg PO DAILY 30 Days #30 tab.chew 04/22/18 Acetaminophen [Tylenol] 650 mg PO Q6HR PRN tablet 07/01/18 Docusate Sodium [Colace] 100 mg PO BID PRN #30 capsule 07/01/18 Metoprolol [Lopressor] 25 mg PO BID #60 tablet 07/01/18 Allergies Allergy/AdvReac Type Severity Reaction Status Date / Time hydromorphone [From Dilaudid] Allergy Palpitation Verified 06/25/18 14:52 s heparin AdvReac See Verified 06/25/18 14:52 Comments All systems ED: reviewed and negative except as stated. Constitutional: Reports: fever, weakness. Denies: chills ENT ED: Denies: dysphagia Cardiovascular: Denies: chest pain Respiratory: Denies: dyspnea Gastrointestinal: Denies: abdominal pain, nausea, vomiting Genitourinary: Denies: urgency, dysuria Musculoskeletal: Reports: myalgia. Denies: back pain Integumentary: Reports: lesions. Denies: rash Neurological: Denies: headache, numbness Past Medical History - Past Medical History Attestation: Yes The following information was validated with the patient. 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 RUNNER history - Social History Smoking Status: Current every day smoker Smokeless Tobacco Status: No Alcohol use: Reports: none Drug use: Reports: none Physical Exam - General Limitations: no limitations General appearance: alert, in no apparent distress - Head Head exam: atraumatic, normocephalic, normal inspection - Eye Eye exam: Present: normal appearance, PERRL, EOMI - ENT ENT exam: normal exam, normal oropharynx, mucous membranes moist - Neck Neck exam: Present: normal inspection, full ROM, trachea midline - Chest Chest inspection: Present: normal inspection, symmetric chest wall rise - Respiratory Respiratory exam: Present: normal lung sounds bilaterally - Cardiovascular Cardiovascular exam: Present: regular rate, normal rhythm, normal heart sounds - Abdominal Exam Abdominal exam: Present: soft, Non-Tender. Absent: tenderness, distention, guarding, rebound, rigidity - Extremities Exam Extremities exam: Present: full ROM, tenderness, normal capillary refill, other (Patient has BKA of the right lower extremity. Patient is left lower extremity has erythema on the anterior aspect and is hot to the touch. Patient has a chronic ulceration on her left distal he will with good granulation tissue. No signs of erythema of this area. Patient has palpable DP pulse. Capillary refill less than 2 seconds. ) Course Vital Signs Temperature 98.9 F 10/07/18 17:45 Pulse Rate 94 10/07/18 17:45 Respiratory Rate 16 10/07/18 17:45 Blood Pressure 163/82 10/07/18 17:45 O2 Sat by Pulse Oximetry 99 10/07/18 17:45 Temperature 98.9 F 10/07/18 17:45 Pulse Rate 92 10/07/18 19:15 Respiratory Rate 20 10/07/18 19:15 Blood Pressure 141/70 10/07/18 19:15 O2 Sat by Pulse Oximetry 100 10/07/18 19:15 Oxygen Delivery Oxygen Delivery Room Air Medical Decision Making - MDM Narrative Medical decision making narrative: Patient's evaluation in the emergency department demonstrates a chest x-ray with right lower lobe pneumonia that appears new. Patient is not noted to be hypoxic at this time. Given the patient's mildly increased heart rate combined with elevation in glucose, I am concerned about patient's history of diabetes and poor control of it and immunocomprised state secondary to the diabetes. Given the patient's symptoms and findings, we will admit the patient to the hospital for further observation and care with IV antibiotics. Patient has an appo intment wound care. Patient states her left lower extremity does appear similar to previous evaluations but I am still concerned about sialitis given the patient's wound is hot to the touch. - Medical Records Medical records reviewed: Yes I reviewed the patient's medical records. - Lab Data Lab results reviewed: Yes I reviewed the patient's lab results. Result diagrams: 10/07/18 18:23 10/07/18 18:23 Lab Results 10/07/18 10/07/18 Range/Units 18:41 18:43 POC Glucose 241 H 215 H (70-99) mg/dL - EKG Data EKG #1 EKG attestation: Yes I reviewed and interpreted this EKG. EKG results narrative: Heart rate 93 beats for minute. Normal sinus rhythm. No ST elevation or ST depression noted. Inverted T waves noted in lead 3 and aVF which appears old from previous EKG on 06/25/2018. No other acute changes noted.
[2018-10-07] MEDS ORDERED: Azithromycin 500 MG in D5% in Water 250 ML IVPB ONE (19:55)
[2018-10-07] MEDS ORDERED: cefTRIAXone 1,000 MG in Water for inj. (sterile) 20 ML 10 ML IVP ONE (19:55)
[2018-10-07 20:12] LABS: Calcium 9.3 mg/dL (8.6-10.3); Potassium 4.1 mEq/L (3.5-5.1)
[2018-10-07 20:18] LABS: Basophils % 0.2 %; Eosinophils % 0.2 %; Hematocrit 33.1 % (35.3-44.9); Hemoglobin 9.9 g/dL (11.5-15.4); Immature Granulocytes % 0.6 % (0-4); Lymphocytes # 0.7 K/mcL (0.6-4.6); Lymphocytes % 4.2 %; Mean Corpuscular HGB Conc 29.9 g/dL (31.6-35.5); Mean Corpuscular Hemoglobin 24.8 pg (28.0-33.3); Monocytes # 0.8 K/mcL (0.0-1.3); Monocytes % 5.2 %; Neutrophils # 14.4 K/mcL (1.6-8.9); Platelet Count 375 K/mcL (140-400); Red Blood Count 3.99 M/mcL (3.82-4.97); Red Cell Distribution Width 16.9 % (11.5-14.5); Segmented Neutrophils % 89.6 %
[2018-10-07] MEDS ORDERED: 0.9 % Sodium Chloride 1,000 ML IVC ONE ×2 (20:36)
--- NOTE | 2018-10-07 20:39 | Emergency Department Note ---
Disposition Clinical Impression: Hyperglycemia, Chronic venous insufficiency, Cellulitis of left lower extremity Pneumonia Qualifiers: Pneumonia type: due to unspecified organism Laterality: right Lung location: lower lobe of lung Qualified Code(s): J18.1 - Lobar pneumonia, unspecified organism Disposition: Still a Patient Condition: Undetermined Referrals: Matteo Love MD [Primary Care Provider] - Forms: ED Satisfaction Letter, Work/School Release General Adult HPI - General Chief complaint: ED General Medical Stated complaint: Elevated Blood Glucose Time Seen by Provider: 10/07/18 18:05 Source: patient, family Mode of arrival: ambulatory Limitations: no limitations - History of Present Illness Pain Scale: 0 - Related Data Home Medications Medication Instructions Recorded Confirmed Atorvastatin Calcium [Lipitor] 80 mg PO DAILY 08/21/16 06/25/18 Clopidogrel [Plavix] 75 mg PO DAILY 08/21/16 06/25/18 Ferrous Sulfate 325 mg PO BIDWM 08/21/16 06/25/18 Gabapentin [Neurontin] 300 mg PO BID 08/21/16 06/25/18 Lisinopril [Zestril] 10 mg PO DAILY 08/21/16 06/25/18 Magnesium Oxide [Magnesium] 400 mg PO DAILY 08/21/16 06/25/18 Nitroglycerin [Nitrostat] 0.4 mg SL Q5M PRN 08/21/16 06/25/18 Ranitidine HCl [Acid Clipper Machine Operator] 150 mg PO BID 08/21/16 06/25/18 Sertraline [Zoloft] 100 mg PO DAILY 08/21/16 06/25/18 Metformin HCl [Glucophage] 1,000 mg PO BID 03/28/17 06/25/18 Insulin ASPART [NovoLOG] 0 unit SQ TIDWM 06/19/17 06/25/18 Sennosides [Senna] 8.6 mg PO DAILY 06/19/17 06/25/18 Insulin Glargine,Hum.rec.anlog 60 unit SQ QAM 12/30/17 06/25/18 [Basaglar Kwikpen U-100] Previous Rx's Medication Instructions Recorded amLODIPine [Norvasc] 10 mg PO DAILY 30 Days #30 tablet 02/07/18 Aspirin 81 mg PO DAILY 30 Days #30 tab.chew 04/22/18 Acetaminophen [Tylenol] 650 mg PO Q6HR PRN tablet 07/01/18 Docusate Sodium [Colace] 100 mg PO BID PRN #30 capsule 07/01/18 Metoprolol [Lopressor] 25 mg PO BID #60 tablet 07/01/18 Allergies Allergy/AdvReac Type Severity Reaction Status Date / Time hydromorphone [From Dilaudid] Allergy Palpitation Verified 06/25/18 14:52 s heparin AdvReac See Verified 06/25/18 14:52 Comments Constitutional: Reports: fever, weakness. Denies: chills ENT ED: Denies: dysphagia Cardiovascular: Denies: chest pain Respiratory: Denies: dyspnea Gastrointestinal: Denies: abdominal pain, nausea, vomiting Genitourinary: Denies: urgency, dysuria Musculoskeletal: Reports: myalgia. Denies: back pain Integumentary: Reports: lesions. 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 - Social History Smoking Status: Current every day smoker Smokeless Tobacco Status: No Alcohol use: Reports: none Drug use: Reports: none Physical Exam - General Limitations: no limitations General appearance: alert, in no apparent distress Course Vital Signs Temperature 98.9 F 10/07/18 17:45 Pulse Rate 94 10/07/18 17:45 Respiratory Rate 16 10/07/18 17:45 Blood Pressure 163/82 10/07/18 17:45 O2 Sat by Pulse Oximetry 99 10/07/18 17:45 Temperature 98.9 F 10/07/18 17:45 Pulse Rate 92 10/07/18 19:15 Respiratory Rate 20 10/07/18 19:15 Blood Pressure 141/70 10/07/18 19:15 O2 Sat by Pulse Oximetry 100 10/07/18 19:15 Oxygen Delivery Oxygen Delivery Room Air Medical Decision Making - Lab Data Result diagrams: 10/07/18 18:23 10/07/18 18:23 Lab Results 10/07/18 10/07/18 10/07/18 Range/Units 18:23 18:23 18:23 WBC 16.1 H (4.3-11.1) K/mcL RBC 3.99 (3.82-4.97) M/mcL Hgb 9.9 L (11.5-15.4) g/dL Hct 33.1 L (35.3-44.9) % MCV 83.0 (83.0-100.0) fL MCH 24.8 L (28.0-33.3) pg MCHC 29.9 L (31.6-35.5) g/dL RDW 16.9 H (11.5-14.5) % Plt Count 375 (140-400) K/mcL MPV 10.0 (9.4-12.4) fL Immature Gran % 0.6 (0-4) % Seg Neutrophils % 89.6 % Lymphocytes % 4.2 % Monocytes % 5.2 % Eosinophils % 0.2 % Basophils % 0.2 % Neutrophils # 14.4 H (1.6-8.9) K/mcL Lymphocytes # 0.7 (0.6-4.6) K/mcL Monocytes # 0.8 (0.0-1.3) K/mcL Eosinophils # 0.0 (0.0-0.6) K/mcL Basophils # 0.0 (0.0-0.2) K/mcL ESR >= 130 H (0-15) mm/hr Sodium 129 L (136-145) mEq/L Potassium 4.1 (3.5-5.1) mEq/L Chloride 100 (98-107) mEq/L Carbon Dioxide 18 L (23-29) mEq/L BUN 35 H (6-20) mg/dL Creatinine 1.84 H (0.60-1.20) mg/dL Est GFR ( Amer) 35 L (> 60) Est GFR (Non-Af Amer) 29 L (> 60) BUN/Creatinine Ratio 19 (6-26) Glucose 204 H (70-105) mg/dL POC Glucose (70-99) mg/dL Calculated Osmolality 282 (280-300) Calcium 9.3 (8.6-10.3) mg/dL 10/07/18 10/07/18 Range/Units 18:41 18:43 WBC (4.3-11.1) K/mcL RBC (3.82-4.97) M/mcL Hgb (11.5-15.4) g/dL Hct (35.3-44.9) % MCV (83.0-100.0) fL MCH (28.0-33.3) pg MCHC (31.6-35.5) g/dL RDW (11.5-14.5) % Plt Count (140-400) K/mcL MPV (9.4-12.4) fL Immature Gran % (0-4) % Seg Neutrophils % % Lymphocytes % % Monocytes % % Eosinophils % % Basophils % % Neutrophils # (1.6-8.9) K/mcL Lymphocytes # (0.6-4.6) K/mcL Monocytes # (0.0-1.3) K/mcL Eosinophils # (0.0-0.6) K/mcL Basophils # (0.0-0.2) K/mcL ESR (0-15) mm/hr Sodium (136-145) mEq/L Potassium (3.5-5.1) mEq/L Chloride (98-107) mEq/L Carbon Dioxide (23-29) mEq/L BUN (6-20) mg/dL Creatinine (0.60-1.20) mg/dL Est GFR ( Amer) (> 60) Est GFR (Non-Af Amer) (> 60) BUN/Creatinine Ratio (6-26) Glucose (70-105) mg/dL POC Glucose 241 H 215 H (70-99) mg/dL Calculated Osmolality (280-300) Calcium (8.6-10.3) mg/dL Attestation Statement - Attestation Attestation: I examined this patient and my medical decision-making was reviewed with the Resident Physician. I agree with the documented findings, disposition and treatment plan as described except to the extent set forth below. Presented dt elevated blood sugar, 500 per HHN. 200s on arrival here. Has chronic wound to left heel, drainage has decreased recently, has been seeing wound clinic, has appointment tomorrow. Not an abx. Redness to the leg has improved recently as well. Has had a cough recently, denies fever. RLL infiltrate on cxr, meets SIRS criteria. Abx initiated. Also has REMY, fluids ordered. Hospitalist paged for admission.
[2018-10-07 21:07] LABS: VBG HCO3 17 mEq/L (21-27); VBG PCO2 32 mmHg (41-51); VBG PH 7.32 pH Units (7.32-7.42); VBG PO2 84 mmHg (25-50)
[2018-10-07 21:40] LABS: Bilirubin,Urine Small (Negative); Blood,Urine Large (Negative); Clarity,Urine Cloudy (Clear); Color,Urine Dark Yellow (Yellow); Glucose,Urine (UA) 250 mg/dL (Normal); Ketones,Urine Negative (Negative); Leukocyte Esterase,Urine Moderate (Negative); Nitrite,Urine Negative (Negative); PH,Urine 7.5 pH Units (5.0-8.0); Protein,Urine >=1000 mg/dL (Neg-Trace); Urobilinogen,Urine Normal (Normal)
[2018-10-07 21:45] LABS: Bacteria,Urine Many per hpf (None-Few); Hyaline Casts,Urine Few per lpf (None-Few); RBC,Urine TNTC per hpf (0-3); Squamous Epithelial Cell,Urine Many per lpf (None-Few); WBC,Urine TNTC per hpf (0-3)
--- NOTE | 2018-10-07 22:10 | Internal Med History&Physical ---
Date of Encounter: 10/08/18 Time of Encounter: 22:09 Internal Medicine - H&P: HPI Chief complaint: Elevated blood sugars Admitted From: Home Plans for Post Hospital Care: Home History of present illness: Ms. 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 Patient has left lower extremity wound ongoing therapy and per patient was seen by podiatry last week. She was not started on any medication. According to patient her left lower extremity was weeping and after treatment the drainage has decreased. Patient was evaluated in the ER and was found to have possible right lower lobe pneumonia with elevated white count and blood sugar. Patient received ceftriaxone and azithromycin and IV fluids. Admission was requested for pneumonia. Patient was interviewed on floor. She denied any difficulty breathing. Did mention having fevers and chills. Did not measured fever at home. Denies any abdominal pain. She has decreased sensation on her left lower extremity chronically and does not have any pain. Left lower extremity has redness ongoing for past 2 weeks before which she did not have any complaints on her left lower extremity. She denies having any imaging or started on any antibiotics. She denies any chest pain abdominal pain urinary or bowel complaints. Past Med Surg Social Fam HX - Past Medical History Medical history: CHF, coronary artery disease, diabetes, GERD, hyperlipidemia, hypertension, peripheral artery disease, renal disease Psychiatric history: depression - Past Surgical History Surgical History: angioplasty/stent, orthopedic, other, other Additional surgical history: right foot surgery, tubal ligation - Social History Smoking Status: Current every day smoker Smokeless Tobacco Status: No Alcohol use: none Drug use: none - Family History Mother Family Member Ethnicity: Non- Living Status: Still Living Hx Family Cardiac Disorders: Yes Hx Family Endocrine Disorder: Yes (type 2 diabetes) Father Family Member Ethnicity: Non- Living Status: Still Living Hx Family Endocrine Disorder: Yes (type 2 diabetes) Internal Medicine - H&P: Meds Atorvastatin Calcium [Lipitor] 80 mg PO DAILY 08/21/16 [History] Clopidogrel [Plavix] 75 mg PO DAILY 08/21/16 [History] Ferrous Sulfate 325 mg PO BIDWM 08/21/16 [History] Gabapentin [Neurontin] 300 mg PO BID 08/21/16 [History] Lisinopril [Zestril] 10 mg PO DAILY 08/21/16 [History] Magnesium Oxide [Magnesium] 400 mg PO DAILY 08/21/16 [History] Nitroglycerin [Nitrostat] 0.4 mg SL Q5M PRN 08/21/16 [History] Ranitidine HCl [Acid Filling Hauler Weaving] 150 mg PO BID 08/21/16 [History] Sertraline [Zoloft] 100 mg PO DAILY 08/21/16 [History] Metformin HCl [Glucophage] 1,000 mg PO BID 03/28/17 [History] Insulin ASPART [NovoLOG] 0 unit SQ TIDWM 06/19/17 [History] Sennosides [Senna] 8.6 mg PO DAILY 06/19/17 [History] Insulin Glargine,Hum.rec.anlog [Basaglar Kwikpen U-100] 60 unit SQ QAM 12/30/17 [History] amLODIPine [Norvasc] 10 mg PO DAILY 30 Days #30 tablet 02/07/18 [Rx] Aspirin 81 mg PO DAILY 30 Days #30 tab.chew 04/22/18 [Rx] Acetaminophen [Tylenol] 650 mg PO Q6HR PRN tablet 07/01/18 [Rx] Docusate Sodium [Colace] 100 mg PO BID PRN #30 capsule 07/01/18 [Rx] Metoprolol [Lopressor] 25 mg PO BID #60 tablet 07/01/18 [Rx] Allergy/AdvReac Type Severity Reaction Status Date / Time hydromorphone [From Dilaudid] Allergy Palpitation Verified 06/25/18 14:52 s heparin AdvReac See Verified 06/25/18 14:52 Comments All Systems PM: A 10-system review of systems was performed and is negative for pertinent findings except as documented above in the HPI. - Constitutional Vitals: Temp Pulse Resp BP Pulse Ox 98.9 F 94 18 178/82 99 10/07/18 17:45 10/07/18 21:46 10/07/18 21:46 10/07/18 21:46 10/07/18 21:46 Exam: Constitutional: Vitals as noted. Conversant. No Apparent Distress. Eyes : Sclera white, conjunctiva clear, no lid lag, PEARLA. ENT : Grossly normal hearing. dry mucus membranes. No JVD, no cervical lymphadenopathy. no thyromegaly or mass. Respiratory : Clear to auscultation bilaterally. No accessory muscle use, rales, rhonchi or wheezes Cardiovascular : tachycardic, +S1, +S2. no murmur, gallop, rubs. No chest wall tenderness GI/Abdominal : Soft, Non-tender, Non-distended, normal bowel sounds, soft, no peritoneal signs. no orgenomegaly or mass appreciated. no hernia. Musculoskeletal: Rt BKA with normal stump. decreased pulse on LLE. Decreased capillary refill. Neurological: AO X3, CN II-XII grossly intact, grossly normal motor and sensory exam. Skin: LLE erythema, warmth and swelling from below knee to ankle. necrotic ulcer with slough on heel. Internal Med - H&P Results - Labs CBC & Chem 7: 10/07/18 18:23 10/07/18 18:23 Labs: Short CBC 10/07/18 Range/Units 18:23 WBC 16.1 H (4.3-11.1) K/mcL Hgb 9.9 L (11.5-15.4) g/dL Hct 33.1 L (35.3-44.9) % Plt Count 375 (140-400) K/mcL Neutrophils # 14.4 H (1.6-8.9) K/mcL BMP 10/07/18 18:23 Sodium 129 L Potassium 4.1 Chloride 100 Carbon Dioxide 18 L BUN 35 H Creatinine 1.84 H Glucose 204 H Calcium 9.3 Urine 10/07/18 Range/Units 21:30 Urine Color Dark Yellow (Yellow) Urine Clarity Cloudy A (Clear) Urine pH 7.5 (5.0-8.0) pH Units Ur Specific [place] 1.020 (1.010-1.025) Urine Protein >=1000 H (Neg-Trace) mg/dL Urine Glucose (UA) 250 H (Normal) mg/dL - ABG Interpretation ABG results: 10/07/18 21:02 VBG pH 7.32 VBG pCO2 32 L VBG pO2 84 H VBG HCO3 17 L - Impressions ITS Impressions Chest X-Ray 10/07/18 18:32 IMPRESSION: Limited portable chest. Central vascular congestion with perihilar edema versus infiltrate. Consider follow-up PA and lateral chest for more complete evaluation. D/ / Gio Duncan MD / Gio Duncan MD Interpreting Provider: Gio Duncan MD - Assessment and Plan (1) Pneumonia Current Visit: Yes Status: Acute Assessment and plan: - May have pneumonia based on chest x-ray. However patient without any cough or shortness of breath. - We will obtain PA and lateral for further investigation - Patient would be on broad-spectrum antibiotics for now for cellulitis which should cover for pneumonia as well. Qualifiers: Pneumonia type: due to unspecified organism Laterality: right Lung location: lower lobe of lung Qualified Code(s): J18.1 - Lobar pneumonia, unspecified organism (2) Cellulitis of left lower extremity Current Visit: Yes Status: Acute Assessment and plan: - Patient with redness, warmth and erythema of left lower extremity ongoing for 2 weeks. Also has necrotic ulcer on the heel of his left leg - We will start patient on broad-spectrum antibiotics with vancomycin and Zosyn given her diabetes being uncontrolled. - Obtain blood cultures and sputum cultures - Has elevated ESR. will obtain CT scan to rule out bone involvement. - We will need infectious disease and podiatry consultation in the morning. (3) Acute kidney injury Current Visit: Yes Status: Acute Assessment and plan: - Likely prerenal related to infection and hyper glycemia - Received 2L NS fluids. We will continue maintenance LR at 75 cc for now - Monitor renal function. (4) Chronic venous insufficiency Current Visit: Yes Status: Acute (5) Anemia Current Visit: No Status: Acute Assessment and plan: -Appears chronic - No signs of bleeding - Monitor for now Qualifiers: Anemia type: unspecified type Qualified Code(s): D64.9 - Anemia, unspecified (6) Leukocytosis Current Visit: No Status: Acute Assessment and plan: - Likely related to cellulitis - Treatment as above Qualifiers: Qualified Code(s): D72.829 - Elevated white blood cell count, unspecified (7) Hyponatremia Current Visit: No Status: Chronic Assessment and plan: - Likely from hypovolemia and hyperglycemia - Status post IV fluids - Lower lobe sodium in the morning (8) CAD (coronary artery disease) Current Visit: No Status: Chronic Assessment and plan: Continue aspirin, Plavix, beta himanshu and statin Qualifiers: Coronary Disease-Associated Artery/Lesion type: [place] artery [place] vs. transplanted heart: [place] heart Associated angina: without angina Qualified Code(s): I25.10 - Atherosclerotic heart disease of [place] coronary artery without angina pectoris - Time Spent With Patient Total time spent is greater than 50% in coordination of care (as documented) at patient's floor/unit and/or counseling patient:
[2018-10-08] MEDS: Piperacillin/Tazobactam 3.375 GM in 0.9 % Sodium Chloride Mini Bag 100 ML IVPB SCH ×3 (00:27→18:12)
[2018-10-08] MEDS ORDERED: Acetaminophen 325 MG TABLET PO PRN (00:33)
[2018-10-08] MEDS ORDERED: D5% in Lactated Ringers 1,000 ML IVC SCH (00:45)
[2018-10-08] MEDS ORDERED: 0.9 % Sodium Chloride 500 ML IVC ONE (01:15)
[2018-10-08 05:39] LABS: Calcium 8.2 mg/dL (8.6-10.3); Potassium 4.4 mEq/L (3.5-5.1)
[2018-10-08 05:40] LABS: Basophils % 0.2 %; Eosinophils % 0.2 %; Hematocrit 27.6 % (35.3-44.9); Hemoglobin 8.5 g/dL (11.5-15.4); Immature Granulocytes % 0.6 % (0-4); Lymphocytes # 0.6 K/mcL (0.6-4.6); Lymphocytes % 5.3 %; Mean Corpuscular HGB Conc 30.8 g/dL (31.6-35.5); Mean Corpuscular Hemoglobin 24.9 pg (28.0-33.3); Mean Corpuscular Volume 80.9 fL (83.0-100.0); Mean Platelet Volume 10.1 fL (9.4-12.4); Monocytes # 0.8 K/mcL (0.0-1.3); Monocytes % 6.3 %; Neutrophils # 10.5 K/mcL (1.6-8.9); Platelet Count 319 K/mcL (140-400); Red Blood Count 3.41 M/mcL (3.82-4.97); Red Cell Distribution Width 16.9 % (11.5-14.5); Segmented Neutrophils % 87.4 %
[2018-10-08] MEDS: Aspirin 81 MG TAB.CHEW PO SCH (08:44)
[2018-10-08] MEDS: Magnesium Oxide 400 MG TABLET PO SCH (08:44)
[2018-10-08] MEDS: Gabapentin 300 MG CAPSULE PO SCH ×2 (08:44→22:02)
--- NOTE | 2018-10-08 09:23 | Infectious Disease Consult ---
Date of Encounter: 10/08/18 Time of Encounter: 09:18 Assessment and Plan (1) Sepsis Status: Acute Assessment and plan: The patient had two SIRS criteria plus REMY on admission. Etiology unclear: PNA vs. left LE cellulitis vs. left foot wound infection. Improved. WBC trending down. Tachycardia resolved. REMY improved. Blood cultures drawn 10/07/18 are pending x 2 sets. Recommendations: Await blood cultures to finalize. Case discussed with Podiatry. Planning to get x-ray of the foot. CT of the LE pending completion. PA/Lateral CXR pending completion. Check RIP. Wound care per the Podiatry team. Continue Vancomycin IV. Pharmacy to dose. Goal trough ~15. Continue Zosyn 3.375 grams IV Q8H. Duration of treatment depends on the clinical picture. Monitor renal function and dose-adjust antibiotics. Qualifiers: Sepsis type: Streptococcus group B Qualified Code(s): A40.1 - Sepsis due to streptococcus, group B (2) Pressure ulcer, heel, left, unstageable Status: Acute Assessment and plan: Location: Left heel. Ongoing x 1 month. Secondary to moisture-associated skin breakdown. Likely exacerbated by tobacco use, uncontrolled DM, and PAD. ESR >130, CRP not checked. Concerned for underlying infectious etiology. CT of the LLE and x-ray left foot pending completion. Podiatry consulted and following. Spoke with the Podiatry team. Pictures of the wound reviewed. Thinks the wound is too dry to culture at this point. Currently on Vanc and Zosyn. (3) Chronic venous insufficiency Status: Acute Assessment and plan: Venous stasis to the LLE vs. cellulitis. Tender and warm to touch, but appears chronic. Recommend compression dressing per previous wound care orders. Management per the Podiatry team. (4) Pneumonia Status: Ruled-out Assessment and plan: CXR shows central vascular congestion with perihilar edema vs. infiltrate. Moist cough, but no shortness of breath. Check RIP. PA/Lateral CXR pending completion. Currently on VanC and Zosyn. Qualifiers: Pneumonia type: due to unspecified organism Laterality: right Lung location: lower lobe of lung Qualified Code(s): J18.1 - Lobar pneumonia, unspecified organism (5) Acute kidney injury Status: Acute Assessment and plan: Serum creatinine elevated at 1.84 on admission. Improved. Continue to trend. Dose-adjust antibiotics and avoid nephrotoxins as able. (6) Hyperglycemia Status: Acute Assessment and plan: Secondary to poorly controlled DM and infection. Check HgbA1C. Strict glucose control per the primary team. (7) Hyponatremia Status: Acute Assessment and plan: Management per the primary team. (8) Type 2 diabetes mellitus Status: Chronic Qualifiers: Diabetes mellitus intermediate card tender insulin use: with intermediate card tender use Diabetes savana litus complication status: with hyperglycemia Qualified Code(s): E11.65 - Type 2 diabetes mellitus with hyperglycemia; Z79.4 - prison (current) use of insulin (9) Diabetic neuropathy Status: Acute Qualifiers: Diabetes mellitus type: type 2 Diabetes mellitus complication detail: diabetic polyneuropathy Qualified Code(s): E11.42 - Type 2 diabetes mellitus with diabetic polyneuropathy (10) Hyperlipidemia Status: Chronic Qualifiers: Hyperlipidemia type: mixed hyperlipidemia Qualified Code(s): E78.2 - Mixed hyperlipidemia (11) CKD (chronic kidney disease) stage 3, GFR 30-59 ml/min Status: Chronic (12) Hypertension Status: Chronic Qualifiers: Hypertension type: essential hypertension Qualified Code(s): I10 - Essential (primary) hypertension (13) Chronic diastolic heart failure Status: Chronic (14) Peripheral arterial disease Status: Chronic (15) Anemia Status: Acute Qualifiers: Anemia type: unspecified type Qualified Code(s): D64.9 - Anemia, unspecified (16) Depression Status: Chronic Qualifiers: Depression Type: unspecified Qualified Code(s): F32.9 - Major depressive disorder, single episode, unspecified (17) S/P BKA (below knee amputation) Status: Acute Qualifiers: Laterality: right Qualified Code(s): Z89.511 - Acquired absence of right leg below knee Infectious Disease HPI - Data of Consult Patient: known to practice within the last 3 years Consult date: 10/08/18 Requesting Physician: Chang Johnston MD Primary Care Provider: Matteo Love MD - Consult Narrative Reason for consult: LLE cellulitis History of present illness: Ms. Mccallum is a 53 year old female with a past medical history of CHF, neuropathy, diabetes, CAD, hyperlipidemia, hypertension, chronic kidney disease, and PAD status post right lower extremity BKA in June 2018. The patient was admitted to the hospital 10/07/18 for left lower extremity cellulitis, hyperglycemia, acute kidney injury, and pneumonia. We are consulted for antibiotic recommendations for left lower extremity cellulitis. Briefly, the patient is a 53-year-old female with past medical history as stated above. The patient is known to the ID services consult on her case back in January 2018 for right lower extremity heel ulcer that eventually required right lower extremity BKA. Apparently, the patient had hyperglycemia on the day of admission so she presented to the emergency department. Upon arrival, the patient was afebrile. She was mildly tachycardic with leukocytosis. She also had acute kidney injury. Lactic acid was normal. ESR was greater than 130. Flu antigen swab was negative. She had a chest x-ray that showed central vascular congestion with perihilar edema versus infiltrate. Urinalysis appeared contaminated. Blood cultures were obtained 2 sets. She was started on Rocephin and Zithromax and admitted to the hospital for further evaluation. Since admission, the patient's tachycardia has resolved. Her leukocytosis is improved. Her creatinine is trending down. She is scheduled to undergo a repeat PA and lateral chest x-ray and a CT of the left lower extremity later today. Podiatry is been consulted. Currently, she is on vancomycin and Zosyn. We have been asked to evaluate and make further recommendations. During my exam today, the patient tells me that for the past week or so she has had some nasal congestion and rhinorrhea with low-grade fever of 99.1. She reports some intermittent headaches and neck pain as well, but states she thought was from where she fell recently. She reports a moist nonproductive cough. She denies any shortness of breath or chest pain. She denies any nausea, vomiting, diarrhea, or constipation. She denies any abdominal pain or u rinary complaints. She states her appetite has been good. She complains of back pain since falling. She denies any other joint or extremity pain. She denies any oral thrush or new skin lesions. She tells me that over the past month she has developed a left heel ulcer that was secondary to prolonged exposure to moisture from weeping from the left lower extremity secondary to edema. She saw Dr. Walekr in the wound clinic last week and was scheduled to see them again today. She reports that her leg is tender and more red today that she thinks this is likely due to her not having a compression dressing on her leg. The patient lives at home with her family. She does not work outside the home. She smokes a pack of cigarettes per day. She denies any alcohol or illicit drug use. She denies any chronic infectious diseases. She denies any recent travel outside the [facility]. She denies any prolonged exposure to water. She does have a dog at home, but denies any bites or scratches. CC: Chang Johnston MD Past Med Surg Social Fam HX - Past Medical History Attestation: Yes The following information was validated with the patient. Source: old records reviewed, nursing notes reviewed Medical history: CHF, coronary artery disease, diabetes, GERD, hyperlipidemia, hypertension, peripheral artery disease, renal disease Psychiatric history: depression - Past Surgical History Surgical History: angioplasty/stent, orthopedic, other, other Additional surgical history: right foot surgery, tubal ligation - Social History Smoking Status: Current every day smoker Packs per day: 1 Smokeless Tobacco Status: No Alcohol use: none Drug use: none Occupational status: unemployed Current living situation: Home, With Family Activity Level: Uses cane/walker Recent Out of Country Travel Within the Last 8 Weeks: No Exposure or Possible Exposure to Illness During Travel: No - Family History Father Family Member Ethnicity: Non- Living Status: Still Living Hx Family Endocrine Disorder: Yes (type 2 diabetes) Mother Family Member Ethnicity: Non- Living Status: Still Living Hx Family Cardiac Disorders: Yes Hx Family Endocrine Disorder: Yes (type 2 diabetes) Infectious Disease-CN:Meds RX: Atorvastatin Calcium [Lipitor] 80 mg PO DAILY 08/21/16 [History] RX: Clopidogrel [Plavix] 75 mg PO DAILY 08/21/16 [History] RX: Ferrous Sulfate 325 mg PO BIDWM 08/21/16 [History] RX: Gabapentin [Neurontin] 300 mg PO BID 08/21/16 [History] RX: Lisinopril [Zestril] 10 mg PO DAILY 08/21/16 [History] RX: Magnesium Oxide [Magnesium] 400 mg PO DAILY 08/21/16 [History] RX: Nitroglycerin [Nitrostat] 0.4 mg SL Q5M PRN 08/21/16 [History] RX: Ranitidine HCl [Acid Safety Tech] 150 mg PO BID 08/21/16 [History] RX: Sertraline [Zoloft] 100 mg PO DAILY 08/21/16 [History] RX: Metformin HCl [Glucophage] 1,000 mg PO BID 03/28/17 [History] RX: Sennosides [Senna] 8.6 mg PO DAILY 06/19/17 [History] RX: Insulin Glargine,Hum.rec.anlog [Basaglar Kwikpen U-100] 60 unit SQ QAM 0 12/30/17 [History] RX: amLODIPine [Norvasc] 10 mg PO DAILY 30 Days #30 tablet 02/07/18 [Rx] RX: Aspirin 81 mg PO DAILY 30 Days #30 tab.chew 04/22/18 [Rx] Docusate Sodium [Colace] 100 mg PO BID PRN #30 capsule 07/01/18 [Rx] Acetaminophen [Extra Strength Non-Aspirin] 500 mg PO Q6H PRN 10/08/18 [History] Insulin LISPRO [Admelog] 15 - 32 units SQ TID 10/08/18 [History] Metoprolol [Lopressor] 12.5 mg PO BID 10/08/18 [History] Allergy/AdvReac Type Severity Reaction Status Date / Time hydromorphone [From Dilaudid] Allergy Palpitation Verified 06/25/18 14:52 s heparin AdvReac See Verified 06/25/18 14:52 Comments All systems: reviewed and no additional remarkable complaints except as stated Exam - Constitutional Vitals: Temp Pulse Resp BP Pulse Ox 98.7 F 85 15 139/74 96 10/08/18 06:18 10/08/18 06:18 10/08/18 06:18 10/08/18 06:18 10/08/18 06:18 General appearance: cooperative, morbidly obese, no acute distress - Head Head exam: Present: atraumatic, normal inspection, normocephalic - Eye Eye exam: Present: EOMI, normal appearance, PERRL Pupils: Present: normal accommodation - ENT ENT exam: Present: mucous membranes moist - Neck Neck exam: Present: normal inspection - Respiratory Respiratory exam: Present: rhonchi (Scattered, throughout). Absent: rales, respiratory distress, wheezes - Cardiovascular Cardiovascular exam: Present: RRR, +S1, +S2 - GI/Abdominal GI/Abdominal exam: Present: distended (obese), normal bowel sounds, soft. Absent: tenderness - Extremities Exam Extremities exam: Present: pedal edema (1+ LLE), tenderness (LLE). Absent: joint swelling, normal inspection (Well-demarcated erythematous noted to the left lower lef from below the knee to the ankle. Knee and ankle are spared. Right foot dressing C/D/I.) Additional comments: Right stump well-healed without erythema, warmth, tenderness, or drainage. - Neurological Exam Neurological exam: Present: alert, oriented X3, no focal deficits - Psychiatric Psychiatric exam: Present: normal affect, normal mood - Skin Skin exam: Present: dry, intact, normal color, warm Infectious Disease CN: Results - Labs CBC & Chem 7: 10/10/18 03:58 10/10/18 03:58 Cultures: Cultures 10/07/18 18:23 Blood Culture - Preliminary Peripheral Venipuncture Culture is incubating and being continuously monitored for growth. Final report to follow. 10/07/18 18:25 Blood Culture - Preliminary Peripheral Venipuncture Culture is incubating and being continuously monitored for growth. Final report to follow. 10/07/18 18:56 Influenza Types A,B Antigen - Final Nasopharyngeal Serology: Serology 10/07/18 Range/Units 21:30 Urine Color Dark Yellow (Yellow) Urine Clarity Cloudy A (Clear) Urine pH 7.5 (5.0-8.0) pH Units Ur Specific [place] 1.020 (1.010-1.025) Urine Protein >=1000 H (Neg-Trace) mg/dL Urine Glucose (UA) 250 H (Normal) mg/dL Urine Ketones Negative (Negative) mg/dL Urine Blood Large H (Negative) Urine Nitrite Negative (Negative) Urine Bilirubin Small H (Negative) Urine Urobilinogen Normal (Normal) mg/dL Ur Leukocyte Esterase Moderate H (Negative) Urine Microscopic RBC TNTC H (0-3) per hpf Urine Microscopic WBC TNTC H (0-3) per hpf Ur Squamous Epith Cells Many H (None-Few) per lpf Urine Bacteria Many H (None-Few) per hpf Hyaline Casts Few (None-Few) per lpf Consult Discharge Plan - Plan Referrals: Matteo leiva MD [Primary Care Provider] - - Attending Attestation I have personally performed a face to face evaluation on this patient. I have reviewed and agree with the care plan. History and Exam by me shows: This is an addendum to original report dictated by Magalys Ramos CNP. Please refer to Charli sun for full detail. Patient is a 53-year-old woman with past medical history mentioned below presented to [facility] with left lower extremity cellulitis, hyperglycemia, acute kidney injury and pneumonia. We are consulted for antibiotic recommendations. Assessment and plan: 1sepsis 2pressure ulcer of the heel left 3chronic venous stasis 4pneumonia 5Acute kidney injury Recommendations: Await blood cultures to finalize. Case discussed with Podiatry. Planning to get x-ray of the foot. CT of the LE pending completion. PA/Lateral CXR pending completion. Check RIP. Wound care per the Podiatry team. Continue Vancomycin IV. Pharmacy to dose. Goal trough ~15. Continue Zosyn 3.375 grams IV Q8H. Duration of treatment depends on the clinical picture. Monitor renal function and dose-adjust antibiotics.
[2018-10-08 10:52] LABS: Estimated Average Glucose 240 mg/dl
--- NOTE | 2018-10-08 11:13 | Podiatry Consult Note ---
Date of Encounter: 10/08/18 Time of Encounter: 08:50 Assessment and Plan (1) Pressure ulcer, heel, left, unstageable Current visit: No Status: Acute Assessment: Dressing removed Left heel ulcer noted, wound edges secure without any evidence of undermining, skin around ulcer sloughing off and dry. Wound bed appears necrotic with possible underlying abscess, fluctuance noted, no tunneling noted, does not probe to bone. No drainage noted, no odor, no streaking. Erythema noted lle, no drainage noted, skin tight and shiny Edema 1/4 2/4 PT/DP pulse and cap refill immediate No calf pain with squeeze WBC 12.1 and trending down, patient has been afebrile ESR > 130 Patient is a 1 ppd smoker and has no desire to quit HgbA1c 10.[address] left lower extremity CT/CT LE LT wo con IMPRESSION: Large soft tissue ulceration measuring at least 5 cm plantar margin of the calcaneus with nonspecific subchondral sclerosis. Differential includes sequela of chronic osteomyelitis versus potential healed posttraumatic or infectious etiology. Correlate MRI imaging as warranted. Left ABIs from 12/30/17 Pt 0.68, DP 0.87, left ankle brachial indexes consistent with mild disease TCP O2 fro 12/30/17 left extremity showed evidence that was consistent with healing Plan: Left heel ulcer flushed with .9NS and pat dry Area painted with betadine, 4x4s applied, and secured with kerlix Wound bed dry, no cultures obtained at this time MRI ordered, patient may need extensive I&D pending results CRP and Hgb A1c ordered ID has evaluated patient, antibiotic recommendations greatly appreciated Heel medix boots to be worn left heel at all times while in bed, orders entered and nursing staff to obtain from central supply Will continue to monitor (2) Diabetes Current visit: No Status: Acute Assessment: Known history of diabetes patieint reports blood sugar has spiked recently Hgb A1c 10.0 Blood sugar 234 Plan: Spoke with patient about the importance of tight glycemic control and how it aids in the healing process Tight glycemic control per internal medicine Qualifiers: Diabetes mellitus type: type 2 Diabetes mellitus 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 insulin use: unspecified 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 insulin use status Diabetes mellitus complication status: with circulatory complication Diabetes mellitus complication detail: with other circulatory complications Qualified Code(s): E11.59 - Type 2 diabetes mellitus with other circulatory complications (3) Tobacco abuse Current visit: No Status: Chronic Assessment: Patient reports she has smoked for 40 years She is a 1 ppd smoker Patient reports she does not have a desire to quit Plan: Spoke with patient in regards to her ulcer being exacerbated by smoking and the benefits of stopping Will continue to monitor for desire to quit Recommend smoking cessation information be given to patient History of Present Illness HPI: Ms. Mccallum is a 53 year old female who presented to the emergency room last evening due to an elevated blood sugar of 582. Subsequently she had a chest x- ray and was diagnosed with pneumonia and admitted to the hospital. Patient does have a past medical history of CHF, CAD, DM, GERD, hyperlipidemia, HTN, PAD, renal disease, and angioplasty/stent placement April 2018. Podiatry was consulted due to a left heel ulcer. Patient is known to podiatry and reports she was previously evaluated by Dr. Walker last week in regards to her venous insufficiency, cellulitis, and ulcer to her left heel. These reports are unavailable to me. She reports she was being treated with adaptic dressings to her lle and santyl was being applied to her left heel. Patient reports the ulcer started two weeks ago. She denies any injury. She does report the cause of the ulcer was thought to be secondary to moisture from drainage from her leg. She reports a burning pain. 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 Patient reports fever at home, temperature 99.1 and chills. Patient denies any chest pain, shortness of breath, or calf pain. She denies any nausea, vomiting, or diarrhea. Patient denies use of illicit drugs or alcohol. She does report she is a 1 pack per day smoker for the last 40 years and has no desire to quit. Past Med Surg Social Fam HX - Past Medical History Medical history: CHF, coronary artery disease, diabetes, GERD, hyperlipidemia, hypertension, peripheral artery disease, renal disease Psychiatric history: depression - Past Surgical History Surgical History: angioplasty/stent, orthopedic, other, other Additional surgical history: right foot surgery, tubal ligation - Social History Smoking Status: Current every day smoker Packs per day: 1 Smokeless Tobacco Status: No Alcohol use: none Drug use: none - Family History Mother Family Member Ethnicity: Non- Living Status: Still Living Hx Family Cardiac Disorders: Yes Hx Family Endocrine Disorder: Yes (type 2 diabetes) Father Family Member Ethnicity: Non- Living Status: Still Living Hx Family Endocrine Disorder: Yes (type 2 diabetes) Medications and Allergies Atorvastatin Calcium [Lipitor] 80 mg PO DAILY 08/21/16 [History] Clopidogrel [Plavix] 75 mg PO DAILY 08/21/16 [History] Ferrous Sulfate 325 mg PO BIDWM 08/21/16 [History] Gabapentin [Neurontin] 300 mg PO BID 08/21/16 [History] Lisinopril [Zestril] 10 mg PO DAILY 08/21/16 [History] Magnesium Oxide [Magnesium] 400 mg PO DAILY 08/21/16 [History] Nitroglycerin [Nitrostat] 0.4 mg SL Q5M PRN 08/21/16 [History] Ranitidine HCl [Acid Overhauler Helper] 150 mg PO BID 08/21/16 [History] Sertraline [Zoloft] 100 mg PO DAILY 08/21/16 [History] Metformin HCl [Glucophage] 1,000 mg PO BID 03/28/17 [History] Insulin ASPART [NovoLOG] 0 unit SQ TIDWM 06/19/17 [History] Sennosides [Senna] 8.6 mg PO DAILY 06/19/17 [History] Insulin Glargine,Hum.rec.anlog [Basaglar Kwikpen U-100] 60 unit SQ QAM 12/30/17 [History] amLODIPine [Norvasc] 10 mg PO DAILY 30 Days #30 tablet 02/07/18 [Rx] Aspirin 81 mg PO DAILY 30 Days #30 tab.chew 04/22/18 [Rx] Acetaminophen [Tylenol] 650 mg PO Q6HR PRN tablet 07/01/18 [Rx] Docusate Sodium [Colace] 100 mg PO BID PRN #30 capsule 07/01/18 [Rx] Metoprolol [Lopressor] 25 mg PO BID #60 tablet 07/01/18 [Rx] Allergy/AdvReac Type Severity Reaction Status Date / Time hydromorphone [From Dilaudid] Allergy Palpitation Verified 06/25/18 14:52 s heparin AdvReac See Verified 06/25/18 14:52 Comments All Systems Reviewed: The remainder of the systems were reviewed and are negative Review of systems: As per HPI Physical Exam - Constitutional Vitals: Temp Pulse Resp BP Pulse Ox 98.5 F 71 16 117/72 96 10/08/18 10:37 10/08/18 10:37 10/08/18 10:37 10/08/18 10:37 10/08/18 10:37 General appearance: cooperative, morbidly obese, no acute distress Exam: Constitutional: Alert and oriented x 3, no acute distress noted, well nourished Vascular: 2/4 PT/DP pulse, cap refill immediate to all digits lle, venous insufficiency noted lle, 1/4 edema, Right BKA Neurological: Diminished sensation, absent proprioception dorsiflexion/plantar flexion Dermatological: Erythema lle, no drainage, and skin tight and shiny. Ulcer noted left calcaneus plantar aspect approximately 8.3cm x 11.2cm x 0.1cm, wound edges intact, no undermining, no tunneling noted, no odor, no drainage noted. There is fluctuance noted to heel and wound bed appears necrotic with possible underlying abscess. Skin around area is sloughing off. Musculoskeletal: Movement of toes noted, 4/5 muscle strength, normal muscle tone - Expanded Lower Extremities Exam 1 - Pressure ulcer, fluctuance noted, wound edges intact, no tunneling, no undermining, no probing to bone, wound bed appears necrotic with possible underlying abscess Results - Labs Result Diagrams: 10/08/18 05:01 10/08/18 05:01 Labs: Abnormal lab results WBC 12.1 K/mcL (4.3-11.1) H 10/08/18 05:01 RBC 3.41 M/mcL (3.82-4.97) L 10/08/18 05:01 Hgb 8.5 g/dL (11.5-15.4) L 10/08/18 05:01 Hct 27.6 % (35.3-44.9) L 10/08/18 05:01 MCV 80.9 fL (83.0-100.0) L 10/08/18 05:01 MCH 24.9 pg (28.0-33.3) L 10/08/18 05:01 MCHC 30.8 g/dL (31.6-35.5) L 10/08/18 05:01 RDW 16.9 % (11.5-14.5) H 10/08/18 05:01 Neutrophils # 10.5 K/mcL (1.6-8.9) H 10/08/18 05:01 ESR >= 130 mm/hr (0-15) H 10/07/18 18:23 VBG pCO2 32 mmHg (41-51) L 10/07/18 21:02 VBG pO2 84 mmHg (25-50) H 10/07/18 21:02 VBG HCO3 17 mEq/L (21-27) L 10/07/18 21:02 Sodium 129 mEq/L (136-145) L 10/08/18 05:01 Carbon Dioxide 15 mEq/L (23-29) L 10/08/18 05:01 BUN 34 mg/dL (6-20) H 10/08/18 05:01 Creatinine 1.72 mg/dL (0.60-1.20) H 10/08/18 05:01 Est GFR ( Amer) 37 (> 60) L 10/08/18 05:01 Est GFR (Non-Af Amer) 31 (> 60) L 10/08/18 05:01 Glucose 234 mg/dL (70-105) H 10/08/18 05:01 POC Glucose 271 mg/dL (70-99) H 10/07/18 23:56 Hemoglobin A1c 10.0 % (-5.6) H 10/08/18 05:01 Calcium 8.2 mg/dL (8.6-10.3) L 10/08/18 05:01 Beta-Hydroxybutyric Acd 0.29 mmol/L (0.02-0.27) H 10/07/18 20:51 Urine Clarity Cloudy (Clear) A 10/07/18 21:30 Urine Protein >=1000 mg/dL (Neg-Trace) H 10/07/18 21:30 Urine Glucose (UA) 250 mg/dL (Normal) H 10/07/18 21:30 Urine Blood Large (Negative) H 10/07/18 21:30 Urine Bilirubin Small (Negative) H 10/07/18 21:30 Ur Leukocyte Esterase Moderate (Negative) H 10/07/18 21:30 Urine Microscopic RBC TNTC per hpf (0-3) H 10/07/18 21:30 Urine Microscopic WBC TNTC per hpf (0-3) H 10/07/18 21:30 Ur Squamous Epith Cells Many per lpf (None-Few) H 10/07/18 21:30 Urine Bacteria Many per hpf (None-Few) H 10/07/18 21:30 H & H 10/07/18 10/08/18 Range/Units 18:23 05:01 Hgb 9.9 L 8.5 L (11.5-15.4) g/dL Hct 33.1 L 27.6 L (35.3-44.9) % All other labs normal. Consult Discharge Plan - Plan Referrals: Kate,Matteo Velez MD [Primary Care Provider] -
[2018-10-08] MEDS ORDERED: Dextrose Gel 15 GM/37.5 ML TUBE PO PRN ×2 (11:25)
[2018-10-08] MEDS ORDERED: *HR* Dextrose 50 % in Water (Syg) 50 ML SYRINGE IVP PRN (11:25)
[2018-10-08] MEDS ORDERED: Dextrose 4 GM Chewable Tablets PO PRN ×2 (11:25)
[2018-10-08] MEDS ORDERED: D5% in Water 1,000 ML IVC PRN (11:25)
[2018-10-08] MEDS ORDERED: Insulin LISPRO 300 UNITS/3 ML VIAL SQ SCH ×2 (11:30→21:00)
--- NOTE | 2018-10-08 11:57 | Internal Med Progress Note ---
<Alexander Loredo - Last Filed: 10/08/18 17:27> Hospitalist Progress Note - Encounter Date of Encounter: 10/08/18 Time of Encounter: 17:27 - Subjective Interval History: Patient admitted for elevated blood sugars, and right lower lobe pneumonia, as well as cellulitis of left lower extremity. This morning while speaking to patient she was somnolent and falling asleep readily. She reports that her left lower extremity has had erythema and warmth for the past 2 weeks and also had a necrotic ulcer. She denies any chest pain, shortness of breath, abdominal pain. She also has a right lower extremity BKA which she denies any symptoms of including erythema and tenderness. - Exam Vitals: Temp Pulse Resp BP Pulse Ox 98.5 F 71 16 117/72 96 10/08/18 10:37 10/08/18 10:37 10/08/18 10:37 10/08/18 10:37 10/08/18 10:37 Exam: General: Somnolent Cardiovascualr: Regular rate and rhythm with no murmur, absent gallops or rubs, absent pedal edema, radial pulses 2 out of 4 Lungs: Clear to auscultation bilaterally, not in respiratory distress Abdomen: Soft nontender, nondistended positive bowel sounds, absent hepatomegaly Skin: Patient's left lower extremity has unstageable ulcer, diffuse erythema up to mid [place]. 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 MSK: absent clubbing, cyanosis, joints without swelling Neuro: Alert oriented 3 Psych: good insight and judgment, - Assessment and Plan (1) Sepsis Current Visit: Yes Status: Acute Assessment and Plan: Tachypnea and tachycardia, leukocytosis on admission Secondary to possible pneumonia, right lower extremity cellulitis, streptococcal bacteremia Leukocytosis improving. Tachycardia and tachypnea resolved Influenza negative Blood cultures still finalizing (2) Cellulitis of left lower extremity Current Visit: Yes Status: Acute Assessment and Plan: She has cellulitis of left lower extremity Foot x-ray shows soft tissue wound on the left heel without underlying bony abnormality Lower extremity CT shows large soft tissue ulceration measuring 5 cm plantar margin of the calcaneus. Podiatry reviewed CT scan and we will obtain MRI of the left lower extremity. Possible I&D planned Continue vancomycin and Zosyn (3) Acute kidney injury superimposed on chronic kidney disease Current Visit: Yes Status: Acute Assessment and Plan: Acute on chronic kidney disease stage III Likely secondary to sepsis Improving Avoid nephrotoxic agents. Continue monitor. (4) Anemia Current Visit: Yes Status: Acute Assessment and Plan: Patient has chronic anemia, anemia of chronic disease Her hemoglobin is stable We will continue to monitor with repeating CBC tomorrow. (5) Bacteremia Current Visit: Yes Status: Acute Assessment and Plan: Since 09/2618 blood cultures 1 out of 2 resulted in group B strep Currently patient is on vancomycin and Zosyn Infectious disease recommendations appreciated (6) CAD (coronary artery disease) Current Visit: Yes Status: Chronic Assessment and Plan: Patient has a history of coronary artery disease She denies any chest pain Continue aspirin, statin, Plavix, lisinopril, metoprolol (7) CHF (congestive heart failure) Current Visit: No Status: Acute (8) Diabetes Current Visit: No Status: Acute (9) Hypertension Current Visit: No Status: Chronic (10) Pneumonia Current Visit: Yes Status: Suspected Assessment and Plan: Patient suspected pneumonia on chest x-ray She is not having any sputum production, cough or requiring oxygen supplementation She is on broad-spectrum antibiotics We will continue monitoring respiratory status. (11) Pressure ulcer, heel, left, unstageable Current Visit: Yes Status: Acute Assessment and Plan: She has a left heel pressure ulcer that has been ongoing for 1 month Her ESR is elevated at 1:30 Podiatry and is on board and planning incision and drainage of the left lower extremity She is on vancomycin and Zosyn. - Time Spent with Patient Total time spent is greater than 50% in coordination of care (as documented) at patient's floor/unit and/or counseling patient: Internal Medicine: Result - Labs CBC & Chem 7: 10/08/18 05:01 10/08/18 05:01 Labs: Short CBC 10/07/18 10/08/18 Range/Units 18:23 05:01 WBC 16.1 H 12.1 H (4.3-11.1) K/mcL Hgb 9.9 L 8.5 L (11.5-15.4) g/dL Hct 33.1 L 27.6 L (35.3-44.9) % Plt Count 375 319 (140-400) K/mcL Neutrophils # 14.4 H 10.5 H (1.6-8.9) K/mcL BMP 10/07/18 10/08/18 18:23 05:01 Sodium 129 L 129 L Potassium 4.1 4.4 Chloride 100 105 Carbon Dioxide 18 L 15 L BUN 35 H 34 H Creatinine 1.84 H 1.72 H Glucose 204 H 234 H Calcium 9.3 8.2 L Urine 10/07/18 Range/Units 21:30 Urine Color Dark Yellow (Yellow) Urine Clarity Cloudy A (Clear) Urine pH 7.5 (5.0-8.0) pH Units Ur Specific [place] 1.020 (1.010-1.025) Urine Protein >=1000 H (Neg-Trace) mg/dL Urine Glucose (UA) 250 H (Normal) mg/dL - Impressions Impressions Chest X-Ray 10/07/18 18:32 IMPRESSION: Limited portable chest. Central vascular congestion with perihilar edema versus infiltrate. Consider follow-up PA and lateral chest for more complete evaluation. D/ / Gio Duncan MD / Gio Duncan MD Interpreting Provider: Gio Duncan MD Consult Discharge Plan - Plan Referrals: Matteo leiva MD [Primary Care Provider] - <Chang Johnston - Last Filed: 10/08/18 18:48> Hospitalist Progress Note - Encounter Date of Encounter: 10/08/18 - Exam Vitals: Temp Pulse Resp BP Pulse Ox 98.5 F 83 16 123/66 97 10/08/18 16:14 10/08/18 16:14 10/08/18 16:14 10/08/18 16:14 10/08/18 16:14 - Assessment and Plan (1) Acute kidney injury Current Visit: Yes Status: Acute (2) Hyponatremia Current Visit: No Status: Acute (3) Chronic venous insufficiency Current Visit: Yes Status: Acute (4) Anemia Current Visit: Yes Status: Acute (5) Cellulitis of left lower extremity Current Visit: Yes Status: Acute (6) CAD (coronary artery disease) Current Visit: Yes Status: Chronic (7) Leukocytosis Current Visit: No Status: Acute (8) Pneumonia Current Visit: Yes Status: Suspected - Time Spent with Patient Total time spent is greater than 50% in coordination of care (as documented) at patient's floor/unit and/or counseling patient: Internal Medicine: Result - Labs CBC & Chem 7: 10/08/18 05:01 10/08/18 05:01 Labs: Short CBC 10/07/18 10/08/18 Range/Units 18:23 05:01 WBC 16.1 H 12.1 H (4.3-11.1) K/mcL Hgb 9.9 L 8.5 L (11.5-15.4) g/dL Hct 33.1 L 27.6 L (35.3-44.9) % Plt Count 375 319 (140-400) K/mcL Neutrophils # 14.4 H 10.5 H (1.6-8.9) K/mcL BMP 10/07/18 10/08/18 18:23 05:01 Sodium 129 L 129 L Potassium 4.1 4.4 Chloride 100 105 Carbon Dioxide 18 L 15 L BUN 35 H 34 H Creatinine 1.84 H 1.72 H Glucose 204 H 234 H Calcium 9.3 8.2 L Urine 10/07/18 Range/Units 21:30 Urine Color Dark Yellow (Yellow) Urine Clarity Cloudy A (Clear) Urine pH 7.5 (5.0-8.0) pH Units Ur Specific [place] 1.020 (1.010-1.025) Urine Protein >=1000 H (Neg-Trace) mg/dL Urine Glucose (UA) 250 H (Normal) mg/dL - Impressions Impressions Lower Extremity CT 10/07/18 09:30 IMPRESSION: Large soft tissue ulceration measuring at least 5 cm plantar margin of the calcaneus with nonspecific subchondral sclerosis. Differential includes sequela of chronic osteomyelitis versus potential healed posttraumatic or infectious etiology. Correlate MRI imaging as warranted. D/ / 10/08/2018 12:45:13 Jeyson Payne MD / [facility] Interpreting Provider: Jeyson Payne MD Chest X-Ray 10/07/18 18:32 IMPRESSION: Limited portable chest. Central vascular congestion with perihilar edema versus infiltrate. Consider follow-up PA and lateral chest for more complete evaluation. D/ / Gio Duncan MD / Gio Duncan MD Interpreting Provider: Gio Duncan MD Chest X-Ray 10/08/18 00:00 IMPRESSION: Mild pulmonary vascular congestion/edema. Soft tissue wound left heel without underlying bony abnormality. D/ / 10/08/2018 13:22:07 Doni Moody MD / [facility] Interpreting Provider: Doni Moody MD Foot X-Ray 10/08/18 09:37 IMPRESSION: Mild pulmonary vascular congestion/edema. Soft tissue wound left heel without underlying bony abnormality. D/ / 10/08/2018 13:22:07 Doni Moody MD / [facility] Interpreting Provider: Doni Moody MD - Attending Attestation I examined this patient and my medical decision-making was reviewed with the Resident Physician. I agree with the documented findings, disposition and treatment plan as described except to the extent set forth below. <Alexander Loredo - Last Filed: 10/08/18 17:27> (1) Sepsis Qualifiers: Sepsis type: Streptococcus group B Qualified Code(s): A40.1 - Sepsis due to streptococcus, group B (4) Anemia Qualifiers: Anemia type: unspecified type Qualified Code(s): D64.9 - Anemia, unspecified (6) CAD (coronary artery disease) Qualifiers: Coronary Disease-Associated Artery/Lesion type: [place] artery [place] vs. 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: unsp ecified longterm insulin use status Diabetes mellitus complication status: with circulatory complication Diabetes mellitus complication detail: with other circulatory complications Qualified Code(s): E11.59 - Type 2 diabetes mellitus with other circulatory complications (9) Hypertension Qualifiers: Hypertension type: essential hypertension Qualified Code(s): I10 - Essential (primary) hypertension (10) Pneumonia Qualifiers: Pneumonia type: due to unspecified organism Laterality: right Lung location: lower lobe of lung Qualified Code(s): J18.1 - Lobar pneumonia, unspecified organism <Chang Johnston - Last Filed: 10/08/18 18:48> (4) Anemia Qualifiers: Anemia type: unspecified type Qualified Code(s): D64.9 - Anemia, unspecified (6) CAD (coronary artery disease) Qualifiers: Coronary Disease-Associated Artery/Lesion type: [place] artery [place] vs. transplanted heart: [place] heart Associated angina: without angina Qualified Code(s): I25.10 - Atherosclerotic heart disease of [place] coronary artery without angina pectoris (7) Leukocytosis Qualifiers: Qualified Code(s): D72.829 - Elevated white blood cell count, unspecified (8) Pneumonia Qualifiers: Pneumonia type: due to unspecified organism Laterality: right Lung location: lower lobe of lung Qualified Code(s): J18.1 - Lobar pneumonia, unspecified organism
[2018-10-08 12:09] LABS: Acinetobacter baumannii by PCR Not Detected (Not Detect); Enterobacter cloacae Cmplx PCR Not Detected (Not Detect); Enterobacteriaceae by PCR Not Detected (Not Detect); Enterococcus by PCR Not Detected (Not Detect); Escherichia coli by PCR Not Detected (Not Detect); Klebsiella oxytoca by PCR Not Detected (Not Detect); Klebsiella pneumoniae by PCR Not Detected (Not Detect); Staphylococcus aureus by PCR Not Detected (Not Detect); Staphylococcus by PCR Not Detected (Not Detect); Streptococcus agalactiae(B)PCR DETECTED (Not Detect); Streptococcus by PCR DETECTED (Not Detect); Streptococcus pneumoniae PCR Not Detected (Not Detect); Streptococcus pyogenes (A) PCR Not Detected (Not Detect)
[2018-10-08 12:10] LABS: Candida albicans by PCR Not Detected (Not Detect); Candida glabrata by PCR Not Detected (Not Detect); Candida krusei by PCR Not Detected (Not Detect); Candida parapsilosis by PCR Not Detected (Not Detect); Candida tropicalis by PCR Not Detected (Not Detect); Proteus by PCR Not Detected (Not Detect); Pseudomonas aeruginosa by PCR Not Detected (Not Detect); Serratia marcescens by PCR Not Detected (Not Detect)
--- NOTE | 2018-10-08 15:17 | Event Note ---
Date of Encounter: 10/08/18 Time of Encounter: 14:50 CT findings from Jeyson Payne MD, is in draft form. Under findings it is reported that there is subcutaneous air or gas along the lateral margin of the posterior soft tissue. The plan for podiatry is I&D. Called and spoke with Dr. Payne to clarify if this was truly gas and if podiatry needed to take patient to surgery emergently. At this time there is no evidence for gas gangrene, no abscess, and nothing to drain. There is evidence for gas that is more than likely a sinus tract transecting the skin going laterally in SQ that is localized to the wound and not streaking up the ankle or leg. The MRI that has been ordered will give more definitive information.
[2018-10-08] MEDS ORDERED: Insulin Regular, Human 100 UNIT/ML SQ ONE (16:23)
[2018-10-08] MEDS ORDERED: Insulin LISPRO 300 UNITS/3 ML VIAL SQ ONE (18:15)
[2018-10-08] MEDS ORDERED: *HR* Metoprolol 5 MG/5 ML VIAL IVP PRN (18:59)
--- NOTE | 2018-10-08 20:27 | Electrocardiograph Report ---
[address] [place] [address] Test Date: 2018-10-07 Pat Name: Jessenia Mccallum Department: EXAM4 Room: 3A63 Gender: F Broke Beater: : 1965 Requested By: Tejas Chun Order Number: [id number] Reading MD: Glenny Farah Measurements Intervals [place] Rate: 93 P: 41 NM: 147 QRS: 54 QRSD: 87 T: -31 QT: 358 QTc: 446 Interpretive Statements Sinus rhythm Nonspecific repol abnormality, diffuse leads Electronically Signed On 10-08-2018 20:25:45 EST by Glenny Farah
[2018-10-08] MEDS ORDERED: Insulin DETEMIR 100 UNIT/ML X5UNITS SQ SCH (21:00)
[2018-10-08] MEDS: Insulin DETEMIR 100 UNIT/ML X5UNITS SQ SCH (22:02)
[2018-10-08] MEDS: Insulin LISPRO 300 UNITS/3 ML VIAL SQ SCH (22:09)
[2018-10-09] MEDS: Piperacillin/Tazobactam 3.375 GM in 0.9 % Sodium Chloride Mini Bag 100 ML IVPB SCH ×3 (02:23→16:07)
[2018-10-09 05:15] LABS: Basophils % 0.3 %; Eosinophils # 0.1 K/mcL (0.0-0.6); Eosinophils % 0.7 %; Hematocrit 27.3 % (35.3-44.9); Hemoglobin 8.1 g/dL (11.5-15.4); Immature Granulocytes % 0.7 % (0-4); Lymphocytes # 1.1 K/mcL (0.6-4.6); Lymphocytes % 9.4 %; Mean Corpuscular HGB Conc 29.7 g/dL (31.6-35.5); Mean Corpuscular Hemoglobin 24.1 pg (28.0-33.3); Mean Corpuscular Volume 81.3 fL (83.0-100.0); Monocytes # 1.3 K/mcL (0.0-1.3); Monocytes % 11.1 %; Neutrophils # 8.8 K/mcL (1.6-8.9); Platelet Count 325 K/mcL (140-400); Red Blood Count 3.36 M/mcL (3.82-4.97); Red Cell Distribution Width 17.3 % (11.5-14.5); Segmented Neutrophils % 77.8 %
[2018-10-09 05:32] LABS: Calcium 8.4 mg/dL (8.6-10.3); Potassium 4.5 mEq/L (3.5-5.1)
--- NOTE | 2018-10-09 09:18 | Infectious Disease Progress No ---
Date of Encounter: 10/09/18 Time of Encounter: 08:45 - Assessment and Plan (1) Sepsis Current Visit: Yes Status: Acute The patient had two SIRS criteria plus REMY on admission. Etiology unclear: PNA vs. left LE cellulitis vs. left foot wound infection. Improved. WBC trending down. Tachycardia resolved. Blood cultures drawn 10/07/18 are positive 1/2 for GBS per PCR. Recommendations: Await blood cultures to finalize. Repeat blood cultures x 2 sets now. Wound care per the Podiatry team. Await surgical recommendations from the Podiatry team. Check RIP. Discussed with nursing. Continue Vancomycin IV. Pharmacy to dose. Goal trough ~15. Will need to watch renal function closely given her CKD. Will discuss dosing with pharmacy. Continue Zosyn 3.375 grams IV Q8H. Duration of treatment depends on the clinical picture. Monitor renal function and dose-adjust antibiotics. Qualifiers: Sepsis type: Streptococcus group B Qualified Code(s): A40.1 - Sepsis due to streptococcus, group B (2) Bacteremia Current Visit: Yes Status: Acute Causative organism: Group B strep per the PCR. Source: Likely the left foot. Blood cultures drawn 10/07/18 are +1 out of 2 sets for gram-positive cocci. The PCR picked up her B strep. Currently on vancomycin and Zosyn. (3) Osteomyelitis Current Visit: No Status: Acute Suspected. Location: Left calcaneus. MRI of the left foot showed findings consistent with cellulitis, abscess, and early osteomyelitis versus reactive osteitis. Given the patient's markedly elevated inflammatory markers (2 ESR greater than 130, CRP 156) I am highly suspicious that there is an underlying osteomyelitis. Podiatry has been consulted. We will await further recommendations from their team. Currently on vancomycin and Zosyn. Qualifiers: Osteomyelitis type: acute hematogenous Osteomyelitis location: foot Laterality: left Qualified Code(s): M86.072 - Acute hematogenous osteomyelitis, left ankle and foot (4) Foot abscess, left Current Visit: Yes Status: Acute Location: Left foot. Causative organism: Unclear, but likely group B strep. MRI of the left foot and ankle showed a large shallow soft tissue ulceration of the plantar aspect of the left heel with diffuse subcutaneous edema compatible with cellulitis. There is a 2 x 1.4 x 1.4 cm complex fluid collection in the subcutaneous fat of the posterior lateral aspect of the left heel compatible with an abscess. This does not contact the underlying calcaneus, but there is very mild bone marrow edema in the posterior inferior aspect of the calcaneus with normal T1 signal. No osseous erosion, but this may represent noninfectious reactive osteitis versus early osteomyelitis, although less likely. Podiatry's been consulted. We will await their recommendations. Currently on vancomycin and Zosyn. (5) Pressure ulcer, heel, left, unstageable Current Visit: Yes Status: Acute Location: Left heel. Ongoing x 1 month. Secondary to moisture-associated skin breakdown. Likely exacerbated by tobacco use, uncontrolled DM, and PAD. Podiatry consulted and following. (6) Chronic venous insufficiency Current Visit: Yes Status: Acute Venous stasis to the LLE vs. cellulitis. Tender and warm to touch, but appears chronic. Recommend compression dressing per previous wound care orders. Management per the Podiatry team. (7) Pneumonia Current Visit: Yes Status: Ruled-out CXR shows central vascular congestion with perihilar edema vs. infiltrate. Moist cough, but no shortness of breath. Check RIP.--> pending collection per nursing. PA/Lateral CXR negative for infiltrate. Currently on Vanc and Zosyn. Qualifiers: Pneumonia type: due to unspecified organism Laterality: right Lung location: lower lobe of lung Qualified Code(s): J18.1 - Lobar pneumonia, unspecified organism (8) Acute kidney injury Current Visit: Yes Status: Acute Serum creatinine elevated at 1.84 on admission, improved, but back up to 2 today. Continue to trend. Dose-adjust antibiotics and avoid nephrotoxins as able. Monitor Vanc levels closely. May have to switch to Dapto if index of suspicion for MRSA persists and REMY worsens. (9) Hyperglycemia Current Visit: Yes Status: Acute Secondary to poorly controlled DM and infection. HgbA1C 10%. Strict glucose control per the primary team. (10) Hyponatremia Current Visit: No Status: Acute Management per the primary team. Consider nephrology to evaluate. (11) Type 2 diabetes mellitus Current Visit: No Status: Chronic Qualifiers: Diabetes mellitus termite control representative insulin use: with senior care use Diabetes mellitus complication status: with hyperglycemia Qualified Code(s): E11.65 - Type 2 diabetes mellitus with hyperglycemia; Z79.4 - halfway (current) use of insulin (12) Diabetic neuropathy Current Visit: No Status: Acute Qualifiers: Diabetes mellitus type: type 2 Diabetes mellitus complication detail: diabetic polyneuropathy Qualified Code(s): E11.42 - Type 2 diabetes mellitus with diabetic polyneuropathy (13) Hyperlipidemia Current Visit: No Status: Chronic Qualifiers: Hyperlipidemia type: mixed hyperlipidemia Qualified Code(s): E78.2 - Mixed hyperlipidemia (14) CKD (chronic kidney disease) stage 3, GFR 30-59 ml/min Current Visit: No Status: Chronic (15) Hypertension Current Visit: Yes Status: Chronic Qualifiers: Hypertension type: essential hypertension Qualified Code(s): I10 - Essential (primary) hypertension (16) Chronic diastolic heart failure Current Visit: No Status: Chronic (17) Peripheral arterial disease Current Visit: No Status: Chronic Status post 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 Left lower extremity DESTINY shows findings consistent with mild disease. TCP O2 monitoring consistent with healing Consider vascular to evaluate. (18) Anemia Current Visit: Yes Status: Acute Qualifiers: Anemia type: unspecified type Qualified Code(s): D64.9 - Anemia, unspecified (19) Depression Current Visit: No Status: Chronic Qualifiers: Depression Type: unspecified Qualified Code(s): F32.9 - Major depressive disorder, single episode, unspecified (20) S/P BKA (below knee amputation) Current Visit: No Status: Acute Qualifiers: Laterality: right Qualified Code(s): Z89.511 - Acquired absence of right leg below knee - Subjective Interval history: Patient seen and examined. No acute events noted overnight. Patient states overall she feels well. Denies fevers, chills, or rigors. Denies chest pain or shortness of breath. Reports a moist nonproductive cough. Denies abdominal pain or urinary complaints. Denies any nausea, vomiting, diarrhea, or c onstipation. States her appetite is good. She denies any oral thrush any skin lesions. She denies any pain at this time. Infect Dis PN-Objective Data - Labs CBC & Chem 7: 10/10/18 03:58 10/10/18 03:58 Labs: Laboratory Results - last 24 hr 10/07/18 10/07/18 10/08/18 17:49 18:23 05:01 WBC RBC Hgb Hct MCV MCH MCHC RDW Plt Count MPV Immature Gran % Seg Neutrophils % Lymphocytes % Monocytes % Eosinophils % Basophils % Neutrophils # Lymphocytes # Monocytes # Eosinophils # Basophils # Sodium 129 L Potassium 4.4 Chloride 105 Carbon Dioxide 15 L BUN 34 H Creatinine 1.72 H Est GFR ( Amer) 37 L Est GFR (Non-Af Amer) 31 L BUN/Creatinine Ratio 20 Glucose 234 H POC Glucose 238 H Est Mean Plasma Glucose Hemoglobin A1c Calculated Osmolality 283 Calcium 8.2 L C-Reactive Protein 156 H A. baumannii (PCR) Not Detected Fina albicans (PCR) Not Detected C. glabrata (PCR) Not Detected C. krusei (PCR) Not Detected C. parapsilosis (PCR) Not Detected C. tropicalis (PCR) Not Detected Enterobacteriac sp PCR Not Detected E. cloacae complex PCR Not Detected Enterococcus sp PCR Not Detected E. coli (PCR) Not Detected H. influenzae (PCR) Not Detected Klebsiella oxytoca PCR Not Detected Klebsiella pneumoniae Not Detected List. monocytogenes PCR Not Detected N. meningitidis (PCR) Not Detected Proteus species (PCR) Not Detected Serratia marcescens PCR Not Detected Staphylococcus sp PCR Not Detected Staph aureus (PCR) Not Detected mecA-Methicil Res Gene N/A Streptococcus sp PCR DETECTED A Group A Strep DNA Not Detected Group B Strep (PCR) DETECTED A Strep pneumoniae (PCR) Not Detected P. aeruginosa (PCR) Not Detected Nuvia/B-Vanco Res Genes N/A KPC (blaKPC) Detect PCR N/A 10/08/18 10/08/18 10/08/18 05:01 08:07 13:16 WBC RBC Hgb Hct MCV MCH MCHC RDW Plt Count MPV Immature Gran % Seg Neutrophils % Lymphocytes % Monocytes % Eosinophils % Basophils % Neutrophils # Lymphocytes # Monocytes # Eosinophils # Basophils # Sodium Potassium Chloride Carbon Dioxide BUN Creatinine Est GFR ( Amer) Est GFR (Non-Af Amer) BUN/Creatinine Ratio Glucose POC Glucose 229 H 273 H Est Mean Plasma Glucose 240 Hemoglobin A1c 10.0 H Calculated Osmolality Calcium C-Reactive Protein A. baumannii (PCR) Fina albicans (PCR) C. glabrata (PCR) C. krusei (PCR) C. parapsilosis (PCR) C. tropicalis (PCR) Enterobacteriac sp PCR E. cloacae complex PCR Enterococcus sp PCR E. coli (PCR) H. influenzae (PCR) Klebsiella oxytoca PCR Klebsiella pneumoniae List. monocytogenes PCR N. meningitidis (PCR) Proteus species (PCR) Serratia marcescens PCR Staphylococcus sp PCR Staph aureus (PCR) mecA-Methicil Res Gene Streptococcus sp PCR Group A Strep DNA Group B Strep (PCR) Strep pneumoniae (PCR) P. aeruginosa (PCR) Nuvia/B-Vanco Res Genes KPC (blaKPC) Detect PCR 10/08/18 10/08/18 10/09/18 22:06 22:07 04:45 WBC 11.3 H RBC 3.36 L Hgb 8.1 L Hct 27.3 L MCV 81.3 L MCH 24.1 L MCHC 29.7 L RDW 17.3 H Plt Count 325 MPV 10.0 Immature Gran % 0.7 Seg Neutrophils % 77.8 Lymphocytes % 9.4 Monocytes % 11.1 Eosinophils % 0.7 Basophils % 0.3 Neutrophils # 8.8 Lymphocytes # 1.1 Monocytes # 1.3 Eosinophils # 0.1 Basophils # 0.0 Sodium Potassium Chloride Carbon Dioxide BUN Creatinine Est GFR ( Amer) Est GFR (Non-Af Amer) BUN/Creatinine Ratio Glucose POC Glucose 402 H* 433 H* Est Mean Plasma Glucose Hemoglobin A1c Calculated Osmolality Calcium C-Reactive Protein A. baumannii (PCR) Fina albicans (PCR) C. glabrata (PCR) C. krusei (PCR) C. parapsilosis (PCR) C. tropicalis (PCR) Enterobacteriac sp PCR E. cloacae complex PCR Enterococcus sp PCR E. coli (PCR) H. influenzae (PCR) Klebsiella oxytoca PCR Klebsiella pneumoniae List. monocytogenes PCR N. meningitidis (PCR) Proteus species (PCR) Serratia marcescens PCR Staphylococcus sp PCR Staph aureus (PCR) mecA-Methicil Res Gene Streptococcus sp PCR Group A Strep DNA Group B Strep (PCR) Strep pneumoniae (PCR) P. aeruginosa (PCR) Nuvia/B-Vanco Res Genes KPC (blaKPC) Detect PCR 10/09/18 04:45 WBC RBC Hgb Hct MCV MCH MCHC RDW Plt Count MPV Immature Gran % Seg Neutrophils % Lymphocytes % Monocytes % Eosinophils % Basophils % Neutrophils # Lymphocytes # Monocytes # Eosinophils # Basophils # Sodium 125 L Potassium 4.5 Chloride 104 Carbon Dioxide 16 L BUN 44 H Creatinine 2.03 H Est GFR ( Amer) 31 L Est GFR (Non-Af Amer) 26 L BUN/Creatinine Ratio 22 Glucose 285 H POC Glucose Est Mean Plasma Glucose Hemoglobin A1c Calculated Osmolality 282 Calcium 8.4 L C-Reactive Protein A. baumannii (PCR) Fina albicans (PCR) C. glabrata (PCR) C. krusei (PCR) C. parapsilosis (PCR) C. tropicalis (PCR) Enterobacteriac sp PCR E. cloacae complex PCR Enterococcus sp PCR E. coli (PCR) H. influenzae (PCR) Klebsiella oxytoca PCR Klebsiella pneumoniae List. monocytogenes PCR N. meningitidis (PCR) Proteus species (PCR) Serratia marcescens PCR Staphylococcus sp PCR Staph aureus (PCR) mecA-Methicil Res Gene Streptococcus sp PCR Group A Strep DNA Group B Strep (PCR) Strep pneumoniae (PCR) P. aeruginosa (PCR) Nuvia/B-Vanco Res Genes KPC (blaKPC) Detect PCR Cultures: Cultures 10/07/18 18:23 Blood Culture - Preliminary Peripheral Venipuncture Gram Positive Cocci 10/07/18 18:25 Blood Culture - Preliminary Peripheral Venipuncture Culture is incubating and being continuously monitored for growth. Final report to follow. 10/07/18 18:56 Influenza Types A,B Antigen - Final Nasopharyngeal Serology 10/07/18 10/07/18 Range/Units 21:30 18:23 Urine Color Dark Yellow (Yellow) Urine Clarity Cloudy A (Clear) Urine pH 7.5 (5.0-8.0) pH Units Ur Specific [place] 1.020 (1.010-1.025) Urine Protein >=1000 H (Neg-Trace) mg/dL Urine Glucose (UA) 250 H (Normal) mg/dL Urine Ketones Negative (Negative) mg/dL Urine Blood Large H (Negative) Urine Nitrite Negative (Negative) Urine Bilirubin Small H (Negative) Urine Urobilinogen Normal (Normal) mg/dL Ur Leukocyte Esterase Moderate H (Negative) Urine Microscopic RBC TNTC H (0-3) per hpf Urine Microscopic WBC TNTC H (0-3) per hpf Ur Squamous Epith Cells Many H (None-Few) per lpf Urine Bacteria Many H (None-Few) per hpf Hyaline Casts Few (None-Few) per lpf A. baumannii (PCR) Not Detected (Not Detect) Fina albicans (PCR) Not Detected (Not Detect) C. glabrata (PCR) Not Detected (Not Detect) C. krusei (PCR) Not Detected (Not Detect) C. parapsilosis (PCR) Not Detected (Not Detect) C. tropicalis (PCR) Not Detected (Not Detect) Enterobacteriac sp PCR Not Detected (Not Detect) E. cloacae complex PCR Not Detected (Not Detect) Enterococcus sp PCR Not Detected (Not Detect) E. coli (PCR) Not Detected (Not Detect) H. influenzae (PCR) Not Detected (Not Detect) Klebsiella oxytoca PCR Not Detected (Not Detect) Klebsiella pneumoniae Not Detected (Not Detect) List. monocytogenes PCR Not Detected (Not Detect) N. meningitidis (PCR) Not Detected (Not Detect) Proteus species (PCR) Not Detected (Not Detect) Serratia marcescens PCR Not Detected (Not Detect) Staphylococcus sp PCR Not Detected (Not Detect) Staph aureus (PCR) Not Detected (Not Detect) mecA-Methicil Res Gene N/A (Not Detect) Streptococcus sp PCR DETECTED A (Not Detect) Group A Strep DNA Not Detected (Not Detect) Group B Strep (PCR) DETECTED A (Not Detect) Strep pneumoniae (PCR) Not Detected (Not Detect) P. aeruginosa (PCR) Not Detected (Not Detect) Nuvia/B-Vanco Res Genes N/A (Not Detect) KPC (blaKPC) Detect PCR N/A (Not Detect) - Impressions Impressions Lower Extremity CT 10/07/18 09:30 IMPRESSION: Large soft tissue ulceration measuring at least 5 cm plantar margin of the calcaneus with nonspecific subchondral sclerosis. Differential includes sequela of chronic osteomyelitis versus potential healed posttraumatic or infectious etiology. Correlate MRI imaging as warranted. D/ / 10/08/2018 12:45:13 Jeyson Payne MD / [facility] Interpreting Provider: Jeyson Payne MD Chest X-Ray 10/08/18 00:00 IMPRESSION: Mild pulmonary vascular congestion/edema. Soft tissue wound left heel without underlying bony abnormality. D/ / 10/08/2018 13:22:07 Doni Moody MD / [facility] Interpreting Provider: Doni Moody MD Foot X-Ray 10/08/18 09:37 IMPRESSION: Mild pulmonary vascular congestion/edema. Soft tissue wound left heel without underlying bony abnormality. D/ / 10/08/2018 13:22:07 Doni Moody MD / [facility] Interpreting Provider: Doni Moody MD Ankle MRI 10/08/18 12:55 IMPRESSION: 1. Large shallow soft tissue ulceration over the plantar aspect of the heel with diffuse subcutaneous edema compatible with cellulitis. 2 x 1.4 x 1.4 cm complex fluid collection in the subcutaneous fat of the posterolateral aspect of the heel compatible with an abscess. This does not contact the underlying calcaneus. No sinus tract. 2. Very mild bone marrow edema in the posterior inferior aspect of the calcaneus with normal T1 signal. No osseous erosion. This may represent noninfectious reactive osteitis. Early osteomyelitis is considered unlikely. D/ / Curly Thomason MD / Curly Thomason MD Interpreting Provider: Curly Thomason MD Exam - Constitutional Vitals: Temp Pulse Resp BP Pulse Ox 98.0 F 71 16 105/67 95 10/09/18 06:38 10/09/18 06:38 10/09/18 06:38 10/09/18 06:38 10/09/18 06:38 General appearance: cooperative, morbidly obese, no acute distress - Head Head exam: Present: atraumatic, normal inspection, normocephalic - Eye Eye exam: Present: EOMI, normal appearance, PERRL Pupils: Present: normal accommodation - ENT ENT exam: Present: mucous membranes moist - Neck Neck exam: Present: normal inspection - Respiratory Respiratory exam: Present: rhonchi (Scattered throughout). Absent: CTAB, rales, respiratory distress, wheezes - Cardiovascular Cardiovascular exam: Present: RRR, +S1, +S2 - GI/Abdominal GI/Abdominal exam: Present: distended (Obese), normal bowel sounds, soft. Absent: tenderness - Extremities Exam Extremities exam: Present: pedal edema (1+ LLE), tenderness (left lower leg). Absent: joint swelling, normal inspection (Left foot dressing is clean, dry, and intact. Foul odor noted. Right lower extremity stump without abnormality. Erythema, warmth, and tenderness persist to the left lower leg.) - Neurological Exam Neurological exam: Present: alert, oriented X3, no focal deficits - Psychiatric Psychiatric exam: Present: normal affect, normal mood - Skin Skin exam: Present: dry, intact, normal color, warm Consult Discharge Plan - Plan Referrals: [facility] [place],Matteo Velez MD [Primary Care Provider] - - Attending Attestation I have personally performed a face to face evaluation on this patient. I have reviewed and agree with the care plan. History and Exam by me shows: 1sepsis 2pressure ulcer of the heel left 3chronic venous stasis 4pneumonia 5Acute kidney injury Recommendations: Await blood cultures to finalize. Case discussed with Podiatry. Planning to get x-ray of the foot. CT of the LE pending completion. PA/Lateral CXR pending completion. Check RIP. Wound care per the Podiatry team. Continue Vancomycin IV. Pharmacy to dose. Goal trough ~15. Continue Zosyn 3.375 grams IV Q8H. Duration of treatment depends on the clinical picture. Monitor renal function and dose-adjust antibiotics.
[2018-10-09] MEDS: Magnesium Oxide 400 MG TABLET PO SCH (09:32)
[2018-10-09] MEDS: Gabapentin 300 MG CAPSULE PO SCH ×2 (09:32→21:42)
[2018-10-09] MEDS: Aspirin 81 MG TAB.CHEW PO SCH (09:32)
[2018-10-09] MEDS: Insulin LISPRO 300 UNITS/3 ML VIAL SQ SCH ×7 (09:33→21:29)
--- NOTE | 2018-10-09 12:01 | Internal Med Progress Note ---
<Alexander Loredo - Last Filed: 10/09/18 13:36> Hospitalist Progress Note - Encounter Date of Encounter: 10/09/18 Time of Encounter: 09:00 - Subjective Interval History: No acute events overnight. Patient reports her left lower extremity is less painful today. She denies any chest pain, shortness breath, cough, sputum pro duction, abdominal pain. She is tolerating her diet. She is having bowel movements and does not have difficulties with urination. - Exam Vitals: Temp Pulse Resp BP Pulse Ox 98.0 F 71 16 105/67 95 10/09/18 06:38 10/09/18 06:38 10/09/18 06:38 10/09/18 06:38 10/09/18 06:38 Exam: General: awake, alert, calm Cardiovascualr: Regular rate and rhythm with no murmur, absent gallops or rubs, absent pedal edema, radial pulses 2 out of 4 Lungs: Clear to auscultation bilaterally, not in respiratory distress Abdomen: Soft nontender, nondistended positive bowel sounds, absent hepatomegaly Skin: Patient's left lower extremity has unstageable ulcer, diffuse erythema up to mid addison. 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 MSK: absent clubbing, cyanosis, joints without swelling Neuro: Alert oriented 3 Psych: good insight and judgment, - Assessment and Plan (1) Sepsis Current Visit: Yes Status: Acute Assessment and Plan: Tachypnea and tachycardia, leukocytosis on admission Secondary to possible pneumonia, right lower extremity cellulitis, streptococcal bacteremia Leukocytosis improving. Tachycardia and tachypnea resolved Influenza negative (2) Cellulitis of left lower extremity Current Visit: Yes Status: Acute Assessment and Plan: She has cellulitis of left lower extremity Foot x-ray shows soft tissue wound on the left heel without underlying bony abnormality Lower extremity CT shows large soft tissue ulceration measuring 5 cm plantar margin of the calcaneus. MRI: Large shallow soft tissue ulceration of the pelvic per aspect of the heel with diffuse subcutaneous edema and 2 x 1.4 x 1.4 cm complex fluid collection in the subcutaneous fat of the posterior aspect of the heel compatible with an abscess. There are no signs of osteomyelitis. Awaiting podiatry recommendations. Blood cultures 1 out of 2 PCR + for group B strep. Continue vancomycin and Zosyn (3) Acute kidney injury superimposed on chronic kidney disease Current Visit: Yes Status: Acute Assessment and Plan: Acute on chronic kidney disease stage III Likely secondary to sepsis. worsening maybe worsening 2nd to vancomycin and zosyn regimen Avoid nephrotoxic agents. obtain urinalysis with urine sodium and creatinine. start NS 100ccc/hr total 1L. (4) Anemia Current Visit: Yes Status: Acute Assessment and Plan: Patient has chronic anemia, anemia of chronic disease Hgb trending down hemodynamically stable no signs of bleeding We will continue to monitor with repeating CBC tomorrow. (5) Bacteremia Current Visit: Yes Status: Acute Assessment and Plan: Since 09/2618 blood cultures 1 out of 2 resulted in group B strep source: LLE cellulitis Currently patient is on vancomycin and Zosyn Infectious disease recommendations appreciated (6) CAD (coronary artery disease) Current Visit: Yes Status: Chronic Assessment and Plan: Patient has a history of coronary artery disease She denies any chest pain Continue aspirin, statin, Plavix, lisinopril, metoprolol (7) CHF (congestive heart failure) Current Visit: Yes Status: Acute Assessment and Plan: She has a history of congestive heart failure is not in acute exacerbation Patient's echocardiogram on 04/20/2018 showed LVEF of 60% Patient was on Lasix in the past but does not look like she takes Lasix as it is not part of her home regimen. Holding lisinopril secondary to acute kidney injury. (8) Diabetes Current Visit: Yes Status: Acute Assessment and Plan: Patient's has insulin-dependent diabetes mellitus Her glucose levels not controlled We will add 30 units of Levemir in the morning and continue 40 units of Levemir at night Continue insulin lispro 10 units with meals. Continue sliding scale insulin Continue diabetic diet. (9) Hypertension Current Visit: Yes Status: Chronic Assessment and Plan: Controlled. Continue home medications. (10) Pneumonia Current Visit: Yes Status: Ruled-out Assessment and Plan: From patient's symptomatology is unlikely she has pneumonia as she does not have cough, sputum production and decided increased oxygenation requirements. She is on broad-spectrum IV antibiotics for her left lower extremity cellulitis. (11) Pressure ulcer, heel, left, unstageable Current Visit: Yes Status: Acute Assessment and Plan: She has a left heel pressure ulcer that has been ongoing for 1 month Her ESR is elevated at 130 Plan as above She is on vancomycin and Zosyn. - Time Spent with Patient Total time spent is greater than 50% in coordination of care (as documented) at patient's floor/unit and/or counseling patient: Internal Medicine: Result - Labs CBC & Chem 7: 10/09/18 04:45 10/09/18 04:45 Labs: Short CBC 10/09/18 Range/Units 04:45 WBC 11.3 H (4.3-11.1) K/mcL Hgb 8.1 L (11.5-15.4) g/dL Hct 27.3 L (35.3-44.9) % Plt Count 325 (140-400) K/mcL Neutrophils # 8.8 (1.6-8.9) K/mcL BMP 10/09/18 04:45 Sodium 125 L Potassium 4.5 Chloride 104 Carbon Dioxide 16 L BUN 44 H Creatinine 2.03 H Glucose 285 H Calcium 8.4 L - Impressions Impressions Lower Extremity CT 10/07/18 09:30 IMPRESSION: Large soft tissue ulceration measuring at least 5 cm plantar margin of the calcaneus with nonspecific subchondral sclerosis. Differential includes sequela of chronic osteomyelitis versus potential healed posttraumatic or infectious etiology. Correlate MRI imaging as warranted. D/ / 10/08/2018 12:45:13 Jeyson Payne MD / [facility] Interpreting Provider: Jeyson Payne MD Chest X-Ray 10/08/18 00:00 IMPRESSION: Mild pulmonary vascular congestion/edema. Soft tissue wound left heel without underlying bony abnormality. D/ / 10/08/2018 13:22:07 Doni Moody MD / [facility] Interpreting Provider: Doni Moody MD Foot X-Ray 10/08/18 09:37 IMPRESSION: Mild pulmonary vascular congestion/edema. Soft tissue wound left heel without underlying bony abnormality. D/ / 10/08/2018 13:22:07 Doni Moody MD / [facility] Interpreting Provider: Doni Moody MD Ankle MRI 10/08/18 12:55 IMPRESSION: 1. Large shallow soft tissue ulceration over the plantar aspect of the heel with diffuse subcutaneous edema compatible with cellulitis. 2 x 1.4 x 1.4 cm complex fluid collection in the subcutaneous fat of the posterolateral aspect of the heel compatible with an abscess. This does not contact the underlying calcaneus. No sinus tract. 2. Very mild bone marrow edema in the posterior inferior aspect of the calcaneus with normal T1 signal. No osseous erosion. This may represent noninfectious reactive osteitis. Early osteomyelitis is considered unlikely. D/ / Curly Thomason MD / Curly Thomason MD Interpreting Provider: Curly Thomason MD Consult Discharge Plan - Plan Referrals: Matteo leiva MD [Primary Care Provider] - <Chang Johnston - Last Filed: 10/09/18 17:41> Hospitalist Progress Note - Encounter Date of Encounter: 10/09/18 - Exam Vitals: Temp Pulse Resp BP Pulse Ox 97.9 F 66 18 125/76 93 10/09/18 16:24 10/09/18 16:24 10/09/18 16:24 10/09/18 16:24 10/09/18 16:24 - Assessment and Plan (1) Acute kidney injury Current Visit: Yes Status: Acute (2) Hyponatremia Current Visit: No Status: Acute (3) Chronic venous insufficiency Current Visit: Yes Status: Acute (4) Anemia Current Visit: Yes Status: Acute (5) Cellulitis of left lower extremity Current Visit: Yes Status: Acute (6) CAD (coronary artery disease) Current Visit: Yes Status: Chronic (7) Leukocytosis Current Visit: No Status: Acute (8) Pneumonia Current Visit: Yes Status: Ruled-out - Time Spent with Patient Total time spent is greater than 50% in coordination of care (as documented) at patient's floor/unit and/or counseling patient: Internal Medicine: Result - Labs CBC & Chem 7: 10/09/18 04:45 10/09/18 04:45 Labs: Short CBC 10/09/18 Range/Units 04:45 WBC 11.3 H (4.3-11.1) K/mcL Hgb 8.1 L (11.5-15.4) g/dL Hct 27.3 L (35.3-44.9) % Plt Count 325 (140-400) K/mcL Neutrophils # 8.8 (1.6-8.9) K/mcL BMP 10/09/18 04:45 Sodium 125 L Potassium 4.5 Chloride 104 Carbon Dioxide 16 L BUN 44 H Creatinine 2.03 H Glucose 285 H Calcium 8.4 L - Impressions Impressions Lower Extremity CT 10/07/18 09:30 IMPRESSION: Large soft tissue ulceration measuring at least 5 cm plantar margin of the calcaneus with nonspecific subchondral sclerosis. Differential includes sequela of chronic osteomyelitis versus potential healed posttraumatic or infectious etiology. Correlate MRI imaging as warranted. D/ / 10/08/2018 12:45:13 Jeyson Payne MD / [facility] Interpreting Provider: Jeyson Payne MD Ankle MRI 10/08/18 12:55 IMPRESSION: 1. Large shallow soft tissue ulceration over the plantar aspect of the heel with diffuse subcutaneous edema compatible with cellulitis. 2 x 1.4 x 1.4 cm complex fluid collection in the subcutaneous fat of the posterolateral aspect of the heel compatible with an abscess. This does not contact the underlying calcaneus. No sinus tract. 2. Very mild bone marrow edema in the posterior inferior aspect of the calcaneus with normal T1 signal. No osseous erosion. This may represent noninfectious reactive osteitis. Early osteomyelitis is considered unlikely. D/ / Curly Thomason MD / Curly Thomason MD Interpreting Provider: Curly Thomason MD - Attending Attestation I examined this patient and my medical decision-making was reviewed with the Resident Physician. I agree with the documented findings, disposition and treatment plan as described except to the extent set forth below. <GertrudeAlexander - Last Filed: 10/09/18 13:36> (1) Sepsis Qualifiers: Sepsis type: Streptococcus group B Qualified Code(s): A40.1 - Sepsis due to streptococcus, group B (4) Anemia Qualifiers: Anemia type: unspecified type Qualified Code(s): D64.9 - Anemia, unspecified (6) CAD (coronary artery disease) Qualifiers: Coronary Disease-Associated Artery/Lesion type: [place] artery [place] vs. transplanted heart: [place] heart Associated angina: without angina Qualified Code(s): I25.10 - Atherosclerotic heart disease of [place] coronary artery without angina pectoris (7) CHF (congestive heart failure) Qualifiers: Heart failure type: diastolic Heart failure chronicity: acute on chronic Qualified Code(s): I50.33 - Acute on chronic diastolic (congestive) heart failure (8) Diabetes Qualifiers: Diabetes mellitus type: type 2 Diabetes mellitus [facility] insulin use: unspecified [facility] insulin use status Diabetes mellitus complication status: with circulatory complication Diabetes mellitus complication detail: with other circulatory complications Qualified Code(s): E11.59 - Type 2 diabetes mellitus with other circulatory complications (9) Hypertension Qualifiers: Hypertension type: essential hypertension Qualified Code(s): I10 - Essential (primary) hypertension (10) Pneumonia Qualifiers: Pneumonia type: due to unspecified organism Laterality: right Lung location: lower lobe of lung Qualified Code(s): J18.1 - Lobar pneumonia, unspecified organism <Chang Johnston - Last Filed: 10/09/18 17:41> (4) Anemia Qualifiers: Qualified Code(s): D64.9 - Anemia, unspecified (6) CAD (coronary artery disease) Qualifiers: Qualified Code(s): I25.10 - Atherosclerotic heart disease of [place] coronary a rtery without angina pectoris (7) Leukocytosis Qualifiers: Qualified Code(s): D72.829 - Elevated white blood cell count, unspecified (8) Pneumonia Qualifiers: Qualified Code(s): J18.1 - Lobar pneumonia, unspecified organism
[2018-10-09 12:32] LABS: Adenovirus Not Detected (Not Detect); Bordetella Pertussis Not Detected (Not Detect); Chlamydophila pneumoniae Not Detected (Not Detect); Coronavirus 229E Not Detected (Not Detect); Coronavirus HKU1 Not Detected (Not Detect); Coronavirus NL63 Not Detected (Not Detect); Coronavirus OC43 Not Detected (Not Detect); Human Metapneumovirus Not Detected (Not Detect); Human Rhinovirus/Enterovirus Not Detected (Not Detect); Influenza A Subtype 2009 H1 Not Detected (Not Detect); Influenza A Untypeable Not Detected (Not Detect); Influenza B Not Detected (Not Detect); Mycoplasma pneumoniae Not Detected (Not Detect); Parainfluenza Virus 1 Not Detected (Not Detect); Parainfluenza Virus 2 Not Detected (Not Detect); Parainfluenza Virus 3 Not Detected (Not Detect); Parainfluenza Virus 4 Not Detected (Not Detect); Respiratory Syncytial Virus Not Detected (Not Detect)
[2018-10-09] MEDS ORDERED: 0.9 % Sodium Chloride 1,000 ML IVC SCH (14:00)
--- NOTE | 2018-10-09 16:55 | Podiatry Progress Note ---
Date of Encounter: 10/09/18 Time of Encounter: 14:25 - Assessment and Plan (1) Pressure ulcer, heel, left, unstageable Current Visit: Yes Status: Acute Assessment: -Dressing removed -Left heel ulcer noted, wound edges with maceration without any evidence of undermining, skin around ulcer sloughing off and dry. Wound bed appears necrotic with possible underlying abscess, fluctuance noted, no tunneling noted, does not probe to bone. No drainage noted, no streaking. -Erythema noted lle, no drainage noted, skin tight and shiny -Edema 1/4 -2/4 PT/DP pulse and cap refill less than 3 seconds -No calf pain with squeeze -WBC 11.3 and trending down, patient has been afebrile -ESR > 130 -CRP 156 -Patient is a 1 ppd smoker and has no desire to quit -HgbA1c 10.0 -Left ABIs completed results PT 0.84 and DP 0.86 -TCP O2 from yesterday are consistent with healing -MRI with evidence of: 1. Large shallow soft tissue ulceration over the plantar aspect of the heel with diffuse subcutaneous edema compatible with cellulitis. 2 x 1.4 x 1.4 cm complex fluid collection in the subcutaneous fat of the posterolateral aspect of the heel compatible with an abscess. This does not contact the underlying calcaneus. No sinus tract. 2. Very mild bone marrow edema in the posterior inferior aspect of the calcaneus with normal T1 signal. No osseous erosion. This may represent noninfectious reactive osteitis. Early osteomyelitis is considered unlikely. Plan: -Bedside debridement, risk versus benefits discussed, and verbal consent obtained -Sharp surgical excisional debridement of ulcer left calcaneus with #15 scalpel blade to relieve gas completed. The site was cleaned x 3 with alcohol and painted with betadine, and a #15 was used to make a small incision into the ulcer relieving any gas or drainage. No change in wound measurements from previous. No undermining, no tunneling noted. No drainage. Wound thoroughly irrigated with sterile saline. Site painted with betadine and dry dressing applied with 4x4s and kerlix. Patient tolerated well. -No cultures were obtained due to absence of drainage -Dr. Oneil to take patient to OR on Saturday10/10/18 for I&D -Nature of the procedure, risks versus benefits, potential complications, consequences of surgery, and condition discussed. All questions and concerns addressed. Consent signed and placed on chart. -NPO after midnight -Spoke with Dr. Johnston and vanesa to hold Plavix, restart on SaturdayOctober 11 at 0900 -ID has evaluated patient, antibiotic recommendations greatly appreciated -Heel medix boots to be worn left heel at all times while in bed, orders entered and nursing staff to obtain from central supply -Will continue to monitor (2) Diabetes Current Visit: Yes Status: Acute Assessment: Known history of diabetes patieint reports blood sugar has spiked recently Hgb A1c 10.0 Blood sugar 285 Plan: Spoke with patient about the importance of tight glycemic control and how it aids in the healing process Tight glycemic control per internal medicine Qualifiers: Diabetes mellitus type: type 2 Diabetes mellitus [facility] insulin use: unspecified [facility] insulin use status Diabetes mellitus complication status: with circulatory complication Diabetes mellitus complication detail: with other circulatory complications Qualified Code(s): E11.59 - Type 2 diabetes mellitus with other circulatory complications (3) Tobacco abuse Current Visit: No Status: Chronic Assessment: Patient reports she has smoked for 40 years She is a 1 ppd smoker Patient reports she does not have a desire to quit Plan: Spoke with patient in regards to her ulcer being exacerbated by smoking and the benefits of stopping Will continue to monitor for desire to quit Recommend smoking cessation information be given to patient Subjective Interval history: Patient resting, aroused easily to verbal stimuli, and oriented x 3. No acute distress noted. She is well nourished. She denies any chest pain, shortness of breath, or calf pain. She denies any recent fever, chills, nausea, or vomiting. Objective - Vital Signs Vital Signs: Vital Signs Temp Pulse Resp BP Pulse Ox 10/09/18 16:24 97.9 F 66 18 125/76 93 10/09/18 06:38 98.0 F 71 16 105/67 95 10/09/18 04:57 98.2 F 100 18 129/78 95 10/08/18 18:51 97.8 F 85 16 149/81 97 Intake and Output 10/09/18 10/09/18 10/09/18 07:59 15:59 23:59 Intake Total 100 / 100 100 / 100 Balance 100 / 100 100 / 100 Intake: IV Fluids 100 / 100 100 / 100 Zosyn 3.375 GM In 0.9 % Sodium 100 / 100 100 / 100 Chloride (Mini-Bag +) 100 ML @ 25 mls/hr IVPB Q8HR [facility] Rx#: [id number] Other: Stool Size Large Stool Consistency liquid Stool Characteristics Mucoid Stool Color Brown # Voids 1 # Urine Diapers 1 1 # Bowel Movement Diapers 1 Weight 128.9 kg Blood Glucose* 254 261 175 Patient Weight 10/09/18 23:59 Weight 128.9 kg - Exam Exam: Constitutional: Alert and oriented x 3, no acute distress noted, well nourished Vascular: 2/4 pulses DP/PT, cap refill less than 3 seconds all digits, 1/4 edema, no pain with calf squeeze Neurological: Sensation diminished, absent proprioception Dermatological: Dermatological: Erythema lle, no drainage, and skin tight and shiny. Ulcer noted left calcaneus plantar aspect, wound edges with maceration noted , no undermining, no tunneling noted, serosang drainage on dressing. There is fluctuance noted to heel and wound bed appears necrotic with possible underlying abscess. Skin around area is sloughing off. Musculoskeletal: Movement of toes noted, 4/5 muscle strength, normal tone - Lab Result Diagrams: 10/09/18 04:45 10/09/18 04:45 Labs: Abnormal lab results WBC 11.3 K/mcL (4.3-11.1) H 10/09/18 04:45 RBC 3.36 M/mcL (3.82-4.97) L 10/09/18 04:45 Hgb 8.1 g/dL (11.5-15.4) L 10/09/18 04:45 Hct 27.3 % (35.3-44.9) L 10/09/18 04:45 MCV 81.3 fL (83.0-100.0) L 10/09/18 04:45 MCH 24.1 pg (28.0-33.3) L 10/09/18 04:45 MCHC 29.7 g/dL (31.6-35.5) L 10/09/18 04:45 RDW 17.3 % (11.5-14.5) H 10/09/18 04:45 ESR >= 130 mm/hr (0-15) H 10/07/18 18:23 VBG pCO2 32 mmHg (41-51) L 10/07/18 21:02 VBG pO2 84 mmHg (25-50) H 10/07/18 21:02 VBG HCO3 17 mEq/L (21-27) L 10/07/18 21:02 Sodium 125 mEq/L (136-145) L 10/09/18 04:45 Carbon Dioxide 16 mEq/L (23-29) L 10/09/18 04:45 BUN 44 mg/dL (6-20) H 10/09/18 04:45 Creatinine 2.03 mg/dL (0.60-1.20) H 10/09/18 04:45 Est GFR ( Amer) 31 (> 60) L 10/09/18 04:45 Est GFR (Non-Af Amer) 26 (> 60) L 10/09/18 04:45 Glucose 285 mg/dL (70-105) H 10/09/18 04:45 POC Glucose 175 mg/dL (70-99) H 10/09/18 16:28 Hemoglobin A1c 10.0 % (-5.6) H 10/08/18 05:01 Calcium 8.4 mg/dL (8.6-10.3) L 10/09/18 04:45 C-Reactive Protein 156 mg/L (Less than 10) H 10/08/18 05:01 Beta-Hydroxybutyric Acd 0.29 mmol/L (0.02-0.27) H 10/07/18 20:51 Urine Clarity Cloudy (Clear) A 10/07/18 21:30 Urine Protein >=1000 mg/dL (Neg-Trace) H 10/07/18 21:30 Urine Glucose (UA) 250 mg/dL (Normal) H 10/07/18 21:30 Urine Blood Large (Negative) H 10/07/18 21:30 Urine Bilirubin Small (Negative) H 10/07/18 21:30 Ur Leukocyte Esterase Moderate (Negative) H 10/07/18 21:30 Urine Microscopic RBC TNTC per hpf (0-3) H 10/07/18 21:30 Urine Microscopic WBC TNTC per hpf (0-3) H 10/07/18 21:30 Ur Squamous Epith Cells Many per lpf (None-Few) H 10/07/18 21:30 Urine Bacteria Many per hpf (None-Few) H 10/07/18 21:30 Vancomycin Trough 24 mcg/mL (5-10) H 10/09/18 13:55 Streptococcus sp PCR DETECTED (Not Detect) A 10/07/18 18:23 Group B Strep (PCR) DETECTED (Not Detect) A 10/07/18 18:23 Microbiology, Last 48 Hours 10/07/18 18:23 Blood Culture - Preliminary Peripheral Venipuncture Gram Positive Cocci 10/07/18 18:25 Blood Culture - Preliminary Peripheral Venipuncture Culture is incubating and being continuously monitored for growth. Final report to follow. 10/07/18 18:56 Influenza Types A,B Antigen - Final Nasopharyngeal Consult Discharge Plan - Plan Referrals: [facility] [place],Matteo Velez MD [Primary Care Provider] -
[2018-10-09] MEDS ORDERED: Famotidine 20 MG TABLET PO SCH (21:00)
[2018-10-09] MEDS: Insulin DETEMIR 100 UNIT/ML X5UNITS SQ SCH (21:42)
[2018-10-10] MEDS: Piperacillin/Tazobactam 3.375 GM in 0.9 % Sodium Chloride Mini Bag 100 ML IVPB SCH ×3 (00:36→15:58)
[2018-10-10 00:57] LABS: Bilirubin,Urine Negative (Negative); Blood,Urine Large (Negative); Clarity,Urine Cloudy (Clear); Color,Urine Yellow (Yellow); Glucose,Urine (UA) Normal (Normal); Ketones,Urine Negative (Negative); Leukocyte Esterase,Urine Moderate (Negative); Nitrite,Urine Negative (Negative); Protein,Urine >=300 mg/dL (Neg-Trace); Specific Gravity,Urine 1.018 (1.010-1.025); Urobilinogen,Urine Normal (Normal)
[2018-10-10 00:59] LABS: Bacteria,Urine None Seen per hpf (None-Few); Squamous Epithelial Cell,Urine Many per lpf (None-Few); WBC,Urine 50-100 per hpf (0-3)
[2018-10-10 01:08] LABS: Sodium, Urine 33.7 mEq/L
[2018-10-10 01:10] LABS: Amorphous Sediment,Urine Few (Few); Hyaline Casts,Urine None Seen per lpf (None-Few)
[2018-10-10 04:16] LABS: Basophils % 0.3 %; Eosinophils # 0.1 K/mcL (0.0-0.6); Eosinophils % 1.1 %; Hematocrit 26.6 % (35.3-44.9); Lymphocytes # 1.4 K/mcL (0.6-4.6); Lymphocytes % 11.1 %; Mean Corpuscular HGB Conc 30.1 g/dL (31.6-35.5); Mean Corpuscular Hemoglobin 24.6 pg (28.0-33.3); Mean Corpuscular Volume 81.8 fL (83.0-100.0); Monocytes # 1.2 K/mcL (0.0-1.3); Monocytes % 9.6 %; Neutrophils # 9.9 K/mcL (1.6-8.9); Nucleated Red Blood Cells 0.2 /100 WBC (0); Platelet Count 350 K/mcL (140-400); Red Blood Count 3.25 M/mcL (3.82-4.97); Red Cell Distribution Width 17.5 % (11.5-14.5); Segmented Neutrophils % 76.9 %
[2018-10-10 04:31] LABS: Calcium 8.2 mg/dL (8.6-10.3); Potassium 4.7 mEq/L (3.5-5.1)
[2018-10-10] MEDS ORDERED: *HR* Enoxaparin 40 MG/0.4 ML SYRINGE SQ SCH (06:00)
[2018-10-10] MEDS ORDERED: Vancomycin 1,000 MG, Sodium Chloride IRRigation 1,000 ML IR ONE ×2 (06:00→17:57)
--- NOTE | 2018-10-10 08:29 | Internal Med Progress Note ---
Hospitalist Progress Note - Encounter Date of Encounter: 10/10/18 Time of Encounter: 14:23 - Subjective Interval History: No acute events. - Exam Vitals: Temp Pulse Resp BP Pulse Ox 98.3 F 67 18 129/78 97 10/10/18 05:11 10/10/18 05:11 10/10/18 05:11 10/10/18 05:11 10/10/18 05:11 Exam: General: pleasant, without distress Cardiovascualr: Regular rate and rhythm with no murmur, absent gallops or rubs, absent pedal edema, radial pulses 2 out of 4 Lungs: Clear to auscultation bilaterally, not in respiratory distress Abdomen: Soft nontender, distended positive bowel sounds, absent hepatomegaly MSK: left lower extremity is bandaged. There is erythema up to mid addison that has improved. Patient has a right BKA. Neuro: Alert oriented 3 with no focal deficit Psych: good insight and judgment, - Assessment and Plan (1) Cellulitis of left lower extremity Current Visit: Yes Status: Acute Assessment and Plan: - Patient with redness, warmth and erythema of left lower extremity ongoing for 2 weeks. Also has necrotic ulcer on the heel of his left leg - We will start patient on broad-spectrum antibiotics with vancomycin and Zosyn given her diabetes being uncontrolled. - Obtain blood cultures and sputum cultures - Has elevated ESR. will obtain CT scan to rule out bone involvement. - Podiatry and ID consulted. (2) Acute kidney injury Current Visit: Yes Status: Acute (3) Hyponatremia Current Visit: No Status: Acute (4) Chronic venous insufficiency Current Visit: Yes Status: Acute (5) Anemia Current Visit: Yes Status: Acute (6) CAD (coronary artery disease) Current Visit: Yes Status: Chronic (7) Leukocytosis Current Visit: No Status: Acute (8) Pneumonia Current Visit: Yes Status: Ruled-out - Time Spent with Patient Total time spent is greater than 50% in coordination of care (as documented) at patient's floor/unit and/or counseling patient: Internal Medicine: Result - Labs CBC & Chem 7: 10/12/18 04:05 10/12/18 04:00 Labs: Short CBC 10/10/18 Range/Units 03:58 WBC 12.9 H (4.3-11.1) K/mcL Hgb 8.0 L (11.5-15.4) g/dL Hct 26.6 L (35.3-44.9) % Plt Count 350 (140-400) K/mcL Neutrophils # 9.9 H (1.6-8.9) K/mcL BMP 10/10/18 03:58 Sodium 129 L Potassium 4.7 Chloride 109 H Carbon Dioxide 13 L BUN 51 H Creatinine 2.15 H Glucose 150 H Calcium 8.2 L Urine 10/10/18 Range/Units 00:43 Urine Color Yellow (Yellow) Urine Clarity Cloudy A (Clear) Urine pH 6.0 (5.0-8.0) pH Units Ur Specific [place] 1.018 (1.010-1.025) Urine Protein >=300 H (Neg-Trace) mg/dL Urine Glucose (UA) Normal (Normal) mg/dL - Impressions Impressions Lower Extremity CT 10/07/18 09:30 IMPRESSION: Large soft tissue ulceration measuring at least 5 cm plantar margin of the calcaneus with nonspecific subchondral sclerosis. Differential includes sequela of chronic osteomyelitis versus potential healed posttraumatic or infectious etiology. Correlate MRI imaging as warranted. D/ / 10/08/2018 12:45:13 Jeyson Payne MD / [facility] Interpreting Provider: Jeyson Payne MD Consult Discharge Plan - Plan [facility] [facility] [place] - (5) Anemia Qualifiers: Anemia type: unspecified type Qualified Code(s): D64.9 - Anemia, unspecified (6) CAD (coronary artery disease) Qualifiers: Coronary Disease-Associated Artery/Lesion type: [place] artery [place] vs. transplanted heart: [place] heart Associated angina: without angina Qualified Code(s): I25.10 - Atherosclerotic heart disease of [place] coronary artery without angina pectoris (7) Leukocytosis Qualifiers: Qualified Code(s): D72.829 - Elevated white blood cell count, unspecified (8) Pneumonia Qualifiers: Pneumonia type: due to unspecified organism Laterality: right Lung location: lower lobe of lung Qualified Code(s): J18.1 - Lobar pneumonia, unspecified organism
[2018-10-10] MEDS ORDERED: Insulin DETEMIR 100 UNIT/ML X5UNITS SQ SCH (09:00)
[2018-10-10] MEDS: Aspirin 81 MG TAB.CHEW PO SCH (09:11)
[2018-10-10] MEDS: Magnesium Oxide 400 MG TABLET PO SCH (09:12)
[2018-10-10] MEDS: Gabapentin 300 MG CAPSULE PO SCH ×2 (09:12→21:27)
[2018-10-10] MEDS: Insulin LISPRO 300 UNITS/3 ML VIAL SQ SCH ×7 (09:14→21:26)
--- NOTE | 2018-10-10 09:41 | Infectious Disease Progress No ---
Date of Encounter: 10/10/18 Time of Encounter: 09:05 - Assessment and Plan (1) Sepsis Current Visit: Yes Status: Acute The patient had two SIRS criteria plus REMY on admission. Likely secondary to left foot wound infection. Improved. WBC trending down. Tachycardia resolved. Blood cultures drawn 10/07/18 are positive 1/2 for GBS per PCR. Repeat blood cultures drawn 10/10/18 are pending 2 sets. Recommendations: Await blood cultures to finalize. Await repeat blood cultures. Wound care per the Podiatry team. Await intraoperative findings from the podiatry team. Continue Vancomycin IV. Pharmacy to dose. Goal trough ~15. Will need to watch renal function closely given her CKD. Vanco trough 10/09/18 was 24. Dosing discussed with pharmacy. Continue Zosyn 3.375 grams IV Q8H. Duration of treatment depends on the clinical picture. Monitor renal function and dose-adjust antibiotics. Qualifiers: Sepsis type: Streptococcus group B Qualified Code(s): A40.1 - Sepsis due to streptococcus, group B (2) Bacteremia Current Visit: Yes Status: Acute Causative organism: Group B strep per the PCR. Source: Likely the left foot. Blood cultures drawn 10/07/18 are +1 out of 2 sets for gram-positive cocci. The PCR picked up group B strep. Repeat blood cultures drawn 10/10/18 are pending 2 sets. Currently on vancomycin and Zosyn. (3) Osteomyelitis Current Visit: No Status: Acute Suspected. Location: Left calcaneus. MRI of the left foot showed findings consistent with cellulitis, abscess, and early osteomyelitis versus reactive osteitis. Given the patient's markedly elevated inflammatory markers (ESR greater than 130, CRP 156) I am highly suspicious that there is an underlying osteomyelitis. Podiatry has been consulted. Bedside I&D nonrevealing, so the patient is going to the operating room later today. Currently on vancomycin and Zosyn. Qualifiers: Osteomyelitis type: acute hematogenous Osteomyelitis location: foot Laterality: left Qualified Code(s): M86.072 - Acute hematogenous osteomyelitis, left ankle and foot (4) Foot abscess, left Current Visit: Yes Status: Acute Location: Left foot. Causative organism: Unclear, but likely group B strep. MRI of the left foot and ankle showed a large shallow soft tissue ulceration of the plantar aspect of the left heel with diffuse subcutaneous edema compatible with cellulitis. There is a 2 x 1.4 x 1.4 cm complex fluid collection in the subcutaneous fat of the posterior lateral aspect of the left heel compatible with an abscess. This does not contact the underlying calcaneus, but there is very mild bone marrow edema in the posterior inferior aspect of the calcaneus with normal T1 signal. No osseous erosion, but this may represent noninfectious reactive osteitis versus early osteomyelitis, although less likely. Podiatry's been consulted. Planning for operative I&D later today. Currently on vancomycin and Zosyn. (5) Pressure ulcer, heel, left, unstageable Current Visit: Yes Status: Acute Location: Left heel. Ongoing x 1 month. Secondary to moisture-associated skin breakdown. Likely exacerbated by tobacco use, uncontrolled DM, and PAD. Podiatry consulted and following. (6) Chronic venous insufficiency Current Visit: Yes Status: Acute Venous stasis to the LLE vs. cellulitis. Tender and warm to touch, but appears chronic. Recommend compression dressing per previous wound care orders. Management per the Podiatry team. (7) Pneumonia Current Visit: Yes Status: Ruled-out CXR shows central vascular congestion with perihilar edema vs. infiltrate. Moist cough, but no shortness of breath. Respiratory infectious panel negative. PA/Lateral CXR negative for infiltrate. Currently on Vanc and Zosyn. Qualifiers: Pneumonia type: due to unspecified organism Laterality: right Lung location: lower lobe of lung Qualified Code(s): J18.1 - Lobar pneumonia, unspecified organism (8) Acute kidney injury Current Visit: Yes Status: Acute Serum creatinine elevated at 1.84 on admission, improved initially, but back up to 2.15 today. Likely secondary to sepsis and vanc toxicity. Continue to trend. Dose-adjust antibiotics and avoid nephrotoxins as able. Monitor Vanc levels closely. May have to switch to Dapto if index of suspicion for MRSA persists and REMY worsens. (9) Hyperglycemia Current Visit: Yes Status: Acute Secondary to poorly controlled DM and infection. HgbA1C 10%. Strict glucose control per the primary team. (10) Hyponatremia Current Visit: No Status: Acute Management per the primary team. Consider nephrology to evaluate. (11) Type 2 diabetes mellitus Current Visit: No Status: Chronic Qualifiers: Diabetes mellitus half-way insulin use: with half-way use Diabetes mellitus complication status: with hyperglycemia Qualified Code(s): E11.65 - Type 2 diabetes mellitus with hyperglycemia; Z79.4 - [facility] (current) use of insulin (12) Diabetic neuropathy Current Visit: No Status: Acute Qualifiers: Diabetes mellitus type: type 2 Diabetes mellitus complication detail: diabetic polyneuropathy Qualified Code(s): E11.42 - Type 2 diabetes mellitus with diabetic polyneuropathy (13) Hyperlipidemia Current Visit: No Status: Chronic Qualifiers: Hyperlipidemia type: mixed hyperlipidemia Qualified Code(s): E78.2 - Mixed hyperlipidemia (14) CKD (chronic kidney disease) stage 3, GFR 30-59 ml/min Current Visit: No Status: Chronic (15) Hypertension Current Visit: Yes Status: Chronic Qualifiers: Hypertension type: essential hypertension Qualified Code(s): I10 - Essential (primary) hypertension (16) Chronic diastolic heart failure Current Visit: No Status: Chronic (17) Peripheral arterial disease Current Visit: No Status: Chronic Status post 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 Left lower extremity DESTINY shows findings consistent with mild disease. TCP O2 monitoring consistent with healing Consider vascular to evaluate. (18) Anemia Current Visit: Yes Status: Acute Qualifiers: Anemia type: unspecified type Qualified Code(s): D64.9 - Anemia, unspecified (19) Depression Current Visit: No Status: Chronic Qualifiers: Depression Type: unspecified Qualified Code(s): F32.9 - Major depressive disorder, single episode, unspecified (20) S/P BKA (below knee amputation) Current Visit: No Status: Acute Qualifiers: Laterality: right Qualified Code(s): Z89.511 - Acquired absence of right leg below knee - Subjective Interval history: Patient seen and examined. No acute events noted overnight. Patient states overall she feels well. Denies fevers, chills, or rigors. Denies chest pain or shortness of breath. Reports a moist nonproductive cough that is better today. Denies abdominal pain or urinary complaints. Denies any nausea, vomiting, diarrhea, or constipation. States her appetite is good, but is currently NPO for OR later today. She denies any oral thrush any skin lesions. She denies any pain at this time. Infect Dis PN-Objective Data - Labs CBC & Chem 7: 10/10/18 03:58 10/10/18 03:58 Labs: Laboratory Results - last 24 hr 10/08/18 10/08/18 10/08/18 16:12 16:13 18:54 WBC RBC Hgb Hct MCV MCH MCHC RDW Plt Count MPV Immature Gran % Seg Neutrophils % Lymphocytes % Monocytes % Eosinophils % Basophils % Neutrophils # Lymphocytes # Monocytes # Eosinophils # Basophils # Nucleated RBCs/100 WBC Sodium Potassium Chloride Carbon Dioxide BUN Creatinine Est GFR ( Amer) Est GFR (Non-Af Amer) BUN/Creatinine Ratio Glucose POC Glucose 576 H* 400 H 407 H* Calculated Osmolality Calcium Urine Color Urine Clarity Urine pH Ur Specific Sixes Urine Protein Urine Glucose (UA) Urine Ketones Urine Blood Urine Nitrite Urine Bilirubin Urine Urobilinogen Ur Leukocyte Esterase Urine Microscopic RBC Urine Microscopic WBC Ur Squamous Epith Cells Amorphous Sediment Urine Bacteria Hyaline Casts Ur Culture Indicated? Urine Creatinine Urine Sodium Vancomycin Trough Random Vancomycin Chlamy pneumoniae PCR Adenovirus (PCR) B. pertussis DNA (PCR) B.parapertussis DNA PCR Coronavirus OC43 (PCR) Coronavirus HKU1 (PCR) Coronavirus 229E (PCR) Coronavirus NL63 (PCR) Human Metapneumovir PCR Influenza A (H1) PCR Influ A (H1N1/09) PCR Influenza A (H3) PCR Influenza A Untype (PCR) Influenza Type B (PCR) M.pneumoniae DNA (PCR) Parainfluenza 1 (PCR) Parainfluenza 2 (PCR) Parainfluenza 3 (PCR) Parainfluenza 4 (PCR) RSV (PCR) Entero/Rhino (PCR) 10/08/18 10/09/18 10/09/18 18:55 07:07 09:30 WBC RBC Hgb Hct MCV MCH MCHC RDW Plt Count MPV Immature Gran % Seg Neutrophils % Lymphocytes % Monocytes % Eosinophils % Basophils % Neutrophils # Lymphocytes # Monocytes # Eosinophils # Basophils # Nucleated RBCs/100 WBC Sodium Potassium Chloride Carbon Dioxide BUN Creatinine Est GFR ( Amer) Est GFR (Non-Af Amer) BUN/Creatinine Ratio Glucose POC Glucose 449 H* 254 H Calculated Osmolality Calcium Urine Color Urine Clarity Urine pH Ur Specific Sixes Urine Protein Urine Glucose (UA) Urine Ketones Urine Blood Urine Nitrite Urine Bilirubin Urine Urobilinogen Ur Leukocyte Esterase Urine Microscopic RBC Urine Microscopic WBC Ur Squamous Epith Cells Amorphous Sediment Urine Bacteria Hyaline Casts Ur Culture Indicated? Urine Creatinine Urine Sodium Vancomycin Trough Random Vancomycin Chlamy pneumoniae PCR Not Detected Adenovirus (PCR) Not Detected B. pertussis DNA (PCR) Not Detected B.parapertussis DNA PCR Not Detected Coronavirus OC43 (PCR) Not Detected Coronavirus HKU1 (PCR) Not Detected Coronavirus 229E (PCR) Not Detected Coronavirus NL63 (PCR) Not Detected Human Metapneumovir PCR Not Detected Influenza A (H1) PCR Not Detected Influ A (H1N1/09) PCR Not Detected Influenza A (H3) PCR Not Detected Influenza A Untype (PCR) Not Detected Influenza Type B (PCR) Not Detected M.pneumoniae DNA (PCR) Not Detected Parainfluenza 1 (PCR) Not Detected Parainfluenza 2 (PCR) Not Detected Parainfluenza 3 (PCR) Not Detected Parainfluenza 4 (PCR) Not Detected RSV (PCR) Not Detected Entero/Rhino (PCR) Not Detected 10/09/18 10/09/18 10/09/18 12:10 13:55 16:28 WBC RBC Hgb Hct MCV MCH MCHC RDW Plt Count MPV Immature Gran % Seg Neutrophils % Lymphocytes % Monocytes % Eosinophils % Basophils % Neutrophils # Lymphocytes # Monocytes # Eosinophils # Basophils # Nucleated RBCs/100 WBC Sodium Potassium Chloride Carbon Dioxide BUN Creatinine Est GFR ( Amer) Est GFR (Non-Af Amer) BUN/Creatinine Ratio Glucose POC Glucose 261 H 175 H Calculated Osmolality Calcium Urine Color Urine Clarity Urine pH Ur Specific Sixes Urine Protein Urine Glucose (UA) Urine Ketones Urine Blood Urine Nitrite Urine Bilirubin Urine Urobilinogen Ur Leukocyte Esterase Urine Microscopic RBC Urine Microscopic WBC Ur Squamous Epith Cells Amorphous Sediment Urine Bacteria Hyaline Casts Ur Culture Indicated? Urine Creatinine Urine Sodium Vancomycin Trough 24 H Random Vancomycin Chlamy pneumoniae PCR Adenovirus (PCR) B. pertussis DNA (PCR) B.parapertussis DNA PCR Coronavirus OC43 (PCR) Coronavirus HKU1 (PCR) Coronavirus 229E (PCR) Coronavirus NL63 (PCR) Human Metapneumovir PCR Influenza A (H1) PCR Influ A (H1N1/09) PCR Influenza A (H3) PCR Influenza A Untype (PCR) Influenza Type B (PCR) M.pneumoniae DNA (PCR) Parainfluenza 1 (PCR) Parainfluenza 2 (PCR) Parainfluenza 3 (PCR) Parainfluenza 4 (PCR) RSV (PCR) Entero/Rhino (PCR) 10/09/18 10/10/1819 21:25 00:43 00:43 WBC RBC Hgb Hct MCV MCH MCHC RDW Plt Count MPV Immature Gran % Seg Neutrophils % Lymphocytes % Monocytes % Eosinophils % Basophils % Neutrophils # Lymphocytes # Monocytes # Eosinophils # Basophils # Nucleated RBCs/100 WBC Sodium Potassium Chloride Carbon Dioxide BUN Creatinine Est GFR ( Amer) Est GFR (Non-Af Amer) BUN/Creatinine Ratio Glucose POC Glucose 161 H Calculated Osmolality Calcium Urine Color Yellow Urine Clarity Cloudy A Urine pH 6.0 Ur Specific Sixes 1.018 Urine Protein >=300 H Urine Glucose (UA) Normal Urine Ketones Negative Urine Blood Large H Urine Nitrite Negative Urine Bilirubin Negative Urine Urobilinogen Normal Ur Leukocyte Esterase Moderate H Urine Microscopic RBC 5-15 H Urine Microscopic WBC 50-100 H Ur Squamous Epith Cells Many H Amorphous Sediment Few Urine Bacteria None Seen Hyaline Casts None Seen Ur Culture Indicated? NO. A Urine Creatinine 86 Urine Sodium 33.7 Vancomycin Trough Random Vancomycin Chlamy pneumoniae PCR Adenovirus (PCR) B. pertussis DNA (PCR) B.parapertussis DNA PCR Coronavirus OC43 (PCR) Coronavirus HKU1 (PCR) Coronavirus 229E (PCR) Coronavirus NL63 (PCR) Human Metapneumovir PCR Influenza A (H1) PCR Influ A (H1N1/09) PCR Influenza A (H3) PCR Influenza A Untype (PCR) Influenza Type B (PCR) M.pneumoniae DNA (PCR) Parainfluenza 1 (PCR) Parainfluenza 2 (PCR) Parainfluenza 3 (PCR) Parainfluenza 4 (PCR) RSV (PCR) Entero/Rhino (PCR) 10/10/18 10/10/18 10/10/18 03:58 03:58 03:58 WBC 12.9 H RBC 3.25 L Hgb 8.0 L Hct 26.6 L MCV 81.8 L MCH 24.6 L MCHC 30.1 L RDW 17.5 H Plt Count 350 MPV 10.0 Immature Gran % 1.0 Seg Neutrophils % 76.9 Lymphocytes % 11.1 Monocytes % 9.6 Eosinophils % 1.1 Basophils % 0.3 Neutrophils # 9.9 H Lymphocytes # 1.4 Monocytes # 1.2 Eosinophils # 0.1 Basophils # 0.0 Nucleated RBCs/100 WBC 0.2 H Sodium 129 L Potassium 4.7 Chloride 109 H Carbon Dioxide 13 L BUN 51 H Creatinine 2.15 H Est GFR ( Amer) 29 L Est GFR (Non-Af Amer) 24 L BUN/Creatinine Ratio 24 Glucose 150 H POC Glucose Calculated Osmolality 285 Calcium 8.2 L Urine Color Urine Clarity Urine pH Ur Specific Sixes Urine Protein Urine Glucose (UA) Urine Ketones Urine Blood Urine Nitrite Urine Bilirubin Urine Urobilinogen Ur Leukocyte Esterase Urine Microscopic RBC Urine Microscopic WBC Ur Squamous Epith Cells Amorphous Sediment Urine Bacteria Hyaline Casts Ur Culture Indicated? Urine Creatinine Urine Sodium Vancomycin Trough Random Vancomycin 20 Chlamy pneumoniae PCR Adenovirus (PCR) B. pertussis DNA (PCR) B.parapertussis DNA PCR Coronavirus OC43 (PCR) Coronavirus HKU1 (PCR) Coronavirus 229E (PCR) Coronavirus NL63 (PCR) Human Metapneumovir PCR Influenza A (H1) PCR Influ A () PCR Influenza A (H3) PCR Influenza A Untype (PCR) Influenza Type B (PCR) M.pneumoniae DNA (PCR) Parainfluenza 1 (PCR) Parainfluenza 2 (PCR) Parainfluenza 3 (PCR) Parainfluenza 4 (PCR) RSV (PCR) Entero/Rhino (PCR) 10/10/18 09:09 WBC RBC Hgb Hct MCV MCH MCHC RDW Plt Count MPV Immature Gran % Seg Neutrophils % Lymphocytes % Monocytes % Eosinophils % Basophils % Neutrophils # Lymphocytes # Monocytes # Eosinophils # Basophils # Nucleated RBCs/100 WBC Sodium Potassium Chloride Carbon Dioxide BUN Creatinine Est GFR ( Amer) Est GFR (Non-Af Amer) BUN/Creatinine Ratio Glucose POC Glucose 173 H Calculated Osmolality Calcium Urine Color Urine Clarity Urine pH Ur Specific Sixes Urine Protein Urine Glucose (UA) Urine Ketones Urine Blood Urine Nitrite Urine Bilirubin Urine Urobilinogen Ur Leukocyte Esterase Urine Microscopic RBC Urine Microscopic WBC Ur Squamous Epith Cells Amorphous Sediment Urine Bacteria Hyaline Casts Ur Culture Indicated? Urine Creatinine Urine Sodium Vancomycin Trough Random Vancomycin Chlamy pneumoniae PCR Adenovirus (PCR) B. pertussis DNA (PCR) B.parapertussis DNA PCR Coronavirus OC43 (PCR) Coronavirus HKU1 (PCR) Coronavirus 229E (PCR) Coronavirus NL63 (PCR) Human Metapneumovir PCR Influenza A (H1) PCR Influ A () PCR Influenza A (H3) PCR Influenza A Untype (PCR) Influenza Type B (PCR) M.pneumoniae DNA (PCR) Parainfluenza 1 (PCR) Parainfluenza 2 (PCR) Parainfluenza 3 (PCR) Parainfluenza 4 (PCR) RSV (PCR) Entero/Rhino (PCR) Cultures: Cultures 10/07/18 18:23 Blood Culture - Final Peripheral Venipuncture Strep agalactiae - (Group B) 10/07/18 18:25 Blood Culture - Preliminary Peripheral Venipuncture Culture is incubating and being continuously monitored for growth. Final report to follow. 10/07/18 18:56 Influenza Types A,B Antigen - Final Nasopharyngeal Serology 10/10/18 10/10/18 10/09/18 Range/Units 00:43 00:43 09:30 Urine Color Yellow (Yellow) Urine Clarity Cloudy A (Clear) Urine pH 6.0 (5.0-8.0) pH Units Ur Specific Sixes 1.018 (1.010-1.025) Urine Protein >=300 H (Neg-Trace) mg/dL Urine Glucose (UA) Normal (Normal) mg/dL Urine Ketones Negative (Negative) mg/dL Urine Blood Large H (Negative) Urine Nitrite Negative (Negative) Urine Bilirubin Negative (Negative) Urine Urobilinogen Normal (Normal) mg/dL Ur Leukocyte Esterase Moderate H (Negative) Urine Microscopic RBC 5-15 H (0-3) per hpf Urine Microscopic WBC 50-100 H (0-3) per hpf Ur Squamous Epith Cells Many H (None-Few) per lpf Amorphous Sediment Few (Few) Urine Bacteria None Seen (None-Few) per hpf Hyaline Casts None Seen (None-Few) per lpf Ur Culture Indicated? NO. A (NO) Urine Creatinine 86 mg/dL Urine Sodium 33.7 mEq/L A. baumannii (PCR) (Not Detect) Chlamy pneumoniae PCR Not Detected (Not Detect) Adenovirus (PCR) Not Detected (Not Detect) B. pertussis DNA (PCR) Not Detected (Not Detect) B.parapertussis DNA PCR Not Detected (Not Detect) Fina albicans (PCR) (Not Detect) C. glabrata (PCR) (Not Detect) C. krusei (PCR) (Not Detect) C. parapsilosis (PCR) (Not Detect) C. tropicalis (PCR) (Not Detect) Coronavirus OC43 (PCR) Not Detected (Not Detect) Coronavirus HKU1 (PCR) Not Detected (Not Detect) Coronavirus 229E (PCR) Not Detected (Not Detect) Coronavirus NL63 (PCR) Not Detected (Not Detect) Enterobacteriac sp PCR (Not Detect) E. cloacae complex PCR (Not Detect) Enterococcus sp PCR (Not Detect) E. coli (PCR) (Not Detect) H. influenzae (PCR) (Not Detect) Human Metapneumovir PCR Not Detected (Not Detect) Influenza A (H1) PCR Not Detected (Not Detect) Influ A (H1N1/09) PCR Not Detected (Not Detect) Influenza A (H3) PCR Not Detected (Not Detect) Influenza A Untype (PCR) Not Detected (Not Detect) Influenza Type B (PCR) Not Detected (Not Detect) Klebsiella oxytoca PCR (Not Detect) Klebsiella pneumoniae (Not Detect) List. monocytogenes PCR (Not Detect) M.pneumoniae DNA (PCR) Not Detected (Not Detect) N. meningitidis (PCR) (Not Detect) Parainfluenza 1 (PCR) Not Detected (Not Detect) Parainfluenza 2 (PCR) Not Detected (Not Detect) Parainfluenza 3 (PCR) Not Detected (Not Detect) Parainfluenza 4 (PCR) Not Detected (Not Detect) Proteus species (PCR) (Not Detect) RSV (PCR) Not Detected (Not Detect) Entero/Rhino (PCR) Not Detected (Not Detect) Serratia marcescens PCR (Not Detect) Staphylococcus sp PCR (Not Detect) Staph aureus (PCR) (Not Detect) mecA-Methicil Res Gene (Not Detect) Streptococcus sp PCR (Not Detect) Group A Strep DNA (Not Detect) Group B Strep (PCR) (Not Detect) Strep pneumoniae (PCR) (Not Detect) P. aeruginosa (PCR) (Not Detect) Nuvia/B-Vanco Res Genes (Not Detect) KPC (blaKPC) Detect PCR (Not Detect) 10/07/18 10/07/18 Range/Units 21:30 18:23 Urine Color Dark Yellow (Yellow) Urine Clarity Cloudy A (Clear) Urine pH 7.5 (5.0-8.0) pH Units Ur Specific Sixes 1.020 (1.010-1.025) Urine Protein >=1000 H (Neg-Trace) mg/dL Urine Glucose (UA) 250 H (Normal) mg/dL Urine Ketones Negative (Negative) mg/dL Urine Blood Large H (Negative) Urine Nitrite Negative (Negative) Urine Bilirubin Small H (Negative) Urine Urobilinogen Normal (Normal) mg/dL Ur Leukocyte Esterase Moderate H (Negative) Urine Microscopic RBC TNTC H (0-3) per hpf Urine Microscopic WBC TNTC H (0-3) per hpf Ur Squamous Epith Cells Many H (None-Few) per lpf Amorphous Sediment (Few) Urine Bacteria Many H (None-Few) per hpf Hyaline Casts Few (None-Few) per lpf Ur Culture Indicated? (NO) Urine Creatinine mg/dL Urine Sodium mEq/L A. baumannii (PCR) Not Detected (Not Detect) Chlamy pneumoniae PCR (Not Detect) Adenovirus (PCR) (Not Detect) B. pertussis DNA (PCR) (Not Detect) B.parapertussis DNA PCR (Not Detect) Fina albicans (PCR) Not Detected (Not Detect) C. glabrata (PCR) Not Detected (Not Detect) C. krusei (PCR) Not Detected (Not Detect) C. parapsilosis (PCR) Not Detected (Not Detect) C. tropicalis (PCR) Not Detected (Not Detect) Coronavirus OC43 (PCR) (Not Detect) Coronavirus HKU1 (PCR) (Not Detect) Coronavirus 229E (PCR) (Not Detect) Coronavirus NL63 (PCR) (Not Detect) Enterobacteriac sp PCR Not Detected (Not Detect) E. cloacae complex PCR Not Detected (Not Detect) Enterococcus sp PCR Not Detected (Not Detect) E. coli (PCR) Not Detected (Not Detect) H. influenzae (PCR) Not Detected (Not Detect) Human Metapneumovir PCR (Not Detect) Influenza A (H1) PCR (Not Detect) Influ A (H1N1/09) PCR (Not Detect) Influenza A (H3) PCR (Not Detect) Influenza A Untype (PCR) (Not Detect) Influenza Type B (PCR) (Not Detect) Klebsiella oxytoca PCR Not Detected (Not Detect) Klebsiella pneumoniae Not Detected (Not Detect) List. monocytogenes PCR Not Detected (Not Detect) M.pneumoniae DNA (PCR) (Not Detect) N. meningitidis (PCR) Not Detected (Not Detect) Parainfluenza 1 (PCR) (Not Detect) Parainfluenza 2 (PCR) (Not Detect) Parainfluenza 3 (PCR) (Not Detect) Parainfluenza 4 (PCR) (Not Detect) Proteus species (PCR) Not Detected (Not Detect) RSV (PCR) (Not Detect) Entero/Rhino (PCR) (Not Detect) Serratia marcescens PCR Not Detected (Not Detect) Staphylococcus sp PCR Not Detected (Not Detect) Staph aureus (PCR) Not Detected (Not Detect) mecA-Methicil Res Gene N/A (Not Detect) Streptococcus sp PCR DETECTED A (Not Detect) Group A Strep DNA Not Detected (Not Detect) Group B Strep (PCR) DETECTED A (Not Detect) Strep pneumoniae (PCR) Not Detected (Not Detect) P. aeruginosa (PCR) Not Detected (Not Detect) Nuvia/B-Vanco Res Genes N/A (Not Detect) KPC (blaKPC) Detect PCR N/A (Not Detect) Exam - Constitutional Vitals: Temp Pulse Resp BP Pulse Ox 98.4 F 65 16 128/78 98 10/10/18 09:12 10/10/18 09:12 10/10/18 09:12 10/10/18 09:12 10/10/18 09:12 General appearance: cooperative, morbidly obese, no acute distress - Head Head exam: Present: atraumatic, normal inspection, normocephalic - Eye Eye exam: Present: EOMI, normal appearance, PERRL Pupils: Present: normal accommodation - ENT ENT exam: Present: mucous membranes moist - Neck Neck exam: Present: normal inspection - Respiratory Respiratory exam: Present: CTAB. Absent: rales, respiratory distress, rhonchi, wheezes - Cardiovascular Cardiovascular exam: Present: RRR, +S1, +S2 - GI/Abdominal GI/Abdominal exam: Present: distended (obese), normal bowel sounds, soft. Absent: tenderness - Extremities Exam Extremities exam: Present: pedal edema (1+ left lower extremity). Absent: normal inspection (Erythema persists to the left lower leg with desquamation. Left foot dressing is clean, dry, and intact.) Additional comments: Right AKA stump without abnormality. - Neurological Exam Neurological exam: Present: alert, oriented X3, no focal deficits - Psychiatric Psychiatric exam: Present: normal affect, normal mood - Skin Skin exam: Present: dry, intact, normal color, warm Consult Discharge Plan - [facility] [place] [facility] - - Attending Attestation I have personally performed a face to face evaluation on this patient. I have reviewed and agree with the care plan. History and Exam by me shows: 1sepsis 2pressure ulcer of the heel left 3chronic venous stasis 4pneumonia 5Acute kidney injury Recommendations: Await blood cultures to finalize. Case discussed with Podiatry. Planning to get x-ray of the foot. CT of the LE pending completion. PA/Lateral CXR pending completion. RIP negative Wound care per the Podiatry team. Continue Vancomycin IV. Pharmacy to dose. Goal trough ~15. Continue Zosyn 3.375 grams IV Q8H. Duration of treatment depends on the clinical picture. Monitor renal function and dose-adjust antibiotics.
[2018-10-10] MEDS ORDERED: 0.9 % Sodium Chloride 1,000 ML IVC SCH (14:00)
--- NOTE | 2018-10-10 16:05 | Anesthesia Evaluation PreOp ---
Date of Encounter: 10/10/18 Time of Encounter: 16:02 - Past History Planned Operation: Left Foot I & D Cardiac History: [place], CHF, HTN, Hyperlipidemia, Cardiac Stent (Stents x 2, Most recently ANGELIQUE placed 04/21/2018. 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: CVA (pt denies) Other Medical History: Renal, Diabetes Type II, Other (obesity BMI=45.2, anxiety/depression) Anesthesia History: No Prior Anesthetic Complications, Past Anesthesia Alcohol Use: none Drug use: none Medications and Allergies Atorvastatin Calcium [Lipitor] 80 mg PO DAILY 08/21/16 [History] Clopidogrel [Plavix] 75 mg PO DAILY 08/21/16 [History] Ferrous Sulfate 325 mg PO BIDWM 08/21/16 [History] Gabapentin [Neurontin] 300 mg PO BID 08/21/16 [History] Lisinopril [Zestril] 10 mg PO DAILY 08/21/16 [History] Magnesium Oxide [Magnesium] 400 mg PO DAILY 08/21/16 [History] Nitroglycerin [Nitrostat] 0.4 mg SL Q5M PRN 08/21/16 [History] Ranitidine HCl [Acid Telephone Information Clerk] 150 mg PO BID 08/21/16 [History] Sertraline [Zoloft] 100 mg PO DAILY 08/21/16 [History] Metformin HCl [Glucophage] 1,000 mg PO BID 03/28/17 [History] Sennosides [Senna] 8.6 mg PO DAILY 06/19/17 [History] Insulin Glargine,Hum.rec.anlog [Basaglar Kwikpen U-100] 60 unit SQ QAM 12/30/17 [History] amLODIPine [Norvasc] 10 mg PO DAILY 30 Days #30 tablet 02/07/18 [Rx] Aspirin 81 mg PO DAILY 30 Days #30 tab.chew 04/22/18 [Rx] Docusate Sodium [Colace] 100 mg PO BID PRN #30 capsule 07/01/18 [Rx] Acetaminophen [Extra Strength Non-Aspirin] 500 mg PO Q6H PRN 10/08/18 [History] Insulin LISPRO [Admelog] 15 - 32 units SQ TID 10/08/18 [History] Metoprolol [Lopressor] 12.5 mg PO BID 10/08/18 [History] Allergy/AdvReac Type Severity Reaction Status Date / Time hydromorphone [From Dilaudid] Allergy Palpitation Verified 06/25/18 14:52 s heparin AdvReac See Verified 06/25/18 14:52 Comments - Meds/Allergy Pre-op Review Medications Reviewed: Yes Allergies Reviewed: Yes Beta Blockers on Current Med List: Yes If Beta Blockers taken, Date/Time (Last Dose taken): 10/10/2018 at 0911 Anesthesia Results - Labs 10/10/18 03:58 10/10/18 03:58 - Imaging EKG: report reviewed (10/07/2018 Sinus rhythm Nonspecific repol abnormality, diffuse leads) Additional studies: 04/21/2018 LEFT HEART CATH Stent w/ PTCA Single Major Vessel MOD SED OTH PHYS/QHP 5/>YRS MOD SED OTHER PHYS/QHP EA MOD SED OTHER PHYS/QHP EA Indications: Non-Stemi ACS <= 24 hrs Impressions: There is severe one vessel coronary artery disease. Patient had successful PTCA/Drug-Eluting Stent placement in the distal RCA. Stent placed from a prior procedure in the 1st Diagonal is patent. Recommendations: Optimal medical therapy of patient's disease. Aggressive risk factor modification. 04/20/2018 Limited Echo Impressions: Limited Echo LVEF 60%. Definity echo contrast was used. Not all LV wall segments were well visualized. Normal right ventricular structure and function. 12/30/2017 Echo Impressions: LVEF 60%. Moderate left ventricular diastolic dysfunction. Definity echo contrast was used. Normal right ventricular structure and function. Mild aortic regurgitation. Mild mitral regurgitation. Mild tricuspid regurgitation. No pulmonary hypertension by TR gradient, 24 mmHg. Anesthesia Exam Vital Signs/O2 Sat/Glucose, Most Recent Temp Pulse Resp BP Pulse Ox 98.4 F 65 16 128/78 98 10/10/18 09:12 10/10/18 09:12 10/10/18 09:12 10/10/18 09:12 10/10/18 09:12 Blood Glucose* 133 Height: 5'7''/1.7m Weight: 288 lbs/130.8 kg NPO (# of Hours): 8 Pain Scale: 0 Pain Scale Used: Numeric (1 - 10) - HEENT Pupil (Motor): EOMI Mallampati: II Teeth: Edentulous Oral Opening: Greater than 3 - CUTTING ROOM SUPERVISOR LOC: Oriented CUTTING ROOM SUPERVISOR Motor: Normal RUE, Normal LUE, Normal RLE, Normal LLE, Normal Face CUTTING ROOM SUPERVISOR Sensory: Normal: RUE, LUE, LLE, Face, Deficit: RLE - Cardiac Rhythm: Regular Murmur: None - Pulmonary Breath Sounds: bilateral Clear Respiratory Effort: Symmetrical Anesthesia Assess/Plan ASA Score: 4 Level of consciousness: Cooperative, Oriented, Tranquil Anesthetic Plan: MAC Monitoring Plan: Standard Monitors
[2018-10-10] MEDS ORDERED: Bupivacaine/EPI 1:200k 0.25%PF 10 ML VIAL INFILT ONE (16:06)
[2018-10-10] MEDS ORDERED: Albuterol 2.5 MG/3 ML NEBULIZER ONE (16:21)
[2018-10-10] MEDS ORDERED: Lidocaine 1% 20 ML MDV ONE (16:24)
[2018-10-10] MEDS ORDERED: Albuterol 2.5 MG/3 ML NEBULIZER IH ONE ×2 (16:26→17:57)
[2018-10-10] MEDS ORDERED: *HR* FentaNYL (PF) 100 MCG/2 ML VIAL ONE (16:29)
[2018-10-10] MEDS ORDERED: *HR* Midazolam HCl 2 MG/2 ML VIAL ONE (16:29)
[2018-10-10] MEDS ORDERED: Propofol 500 MG/50 ML INFUS..BTL ONE (16:30)
[2018-10-10] MEDS ORDERED: Lidocaine -MPF 2% 2 ML VIAL ONE (16:30)
--- NOTE | 2018-10-10 17:42 | Orthopedic Operative Note ---
Date of procedure: 10/10/18 Pre-op diagnosis: left foot wound, abscess Post-op diagnosis: same Procedure: 10/10/18 17:41 1. Incision and drainage of abscess, multiple locations left foot Implants: None Complications: None Anesthesia: MAC Local Anesthetics: 0.5% Sensorcaine HCL SubQ (cc), 1% Lidocaine HCL SubQ (cc) Surgeon: Fredrick Oneil Was there an nurses assistant present: No Estimated blood loss (cc): 5 Tourniquet Time (Minutes): 0 Specimen: Wound with abscess left foot to micro Disposition: floor Procedure in Detail: 10/10/18 17:42 INDICATIONS AND CONSENT Jessenia Mccallum is a 53 year old female with a history of right below knee amputation who presented to [facility] with a left heel wound. She was previously being treated for a left heel ulcer in wound care that became larger and there was concern for infection. She became bacteremic with the heel wound being the likely source. MRI showed evidence of abscess at the posterior heel and plantar heel wound. There was limited evidence of osteomyelitis or tunneling to bone of the abscess on MRI. Surgical incision and drainage was warranted for infection source control. We discussed the above procedures in detail. This included a discussion on the indications, contraindications, and possible complications including but not limited to: infection, non-healing wound, wound vac, pain, swelling, bleeding, blood clots, heart complications, nerve injury, vascular injury, tendon injury, loss of limb, loss of life, and need for further surgery. We also reviewed the expected post operative course, including a discussion on the partial-weightbearing status after this procedure. She related understanding of our discussion regarding this surgery. All questions were answered to her satisfaction, and a proper written informed consent was obtained, signed, and placed in the chart. No guarantees were given, stated or implied, as to the outcome of this procedure. PROCEDURE IN DETAIL The patient was seen in the pre-operative holding area by Anesthesia, where she was consented for MAC with local block. The patient was then brought back to the operative suite and placed on the operating room table in the supine position. A sign-in was performed. MAC was then initiated per Anesthesia protocol. A left ankle tourniquet was placed but not used during the procedure. Next, the left lower leg was scrubbed, prepped, and draped in the usual aseptic manner. A [place] Time-Out was performed, and all parties in the room agreed. A total of 10 mL of 1% lidocaine plain and 10 mL of 0.5% Marcaine plain was injected to the left posterior heel. A 15 blade and rongeur were used to excise all nonviable soft tissue at the plantar heel wound and at the posterior heel wound deep to the level of plantar fascia and Achilles tendon. There was evide nce of abscess at both sites. The abscesses did not connect to each other. The plantar heel wound was deep to the level of plantar fascia but did not appear to connect to the calcaneus. Soft tissue was sent to [place] for aerobe, anaerobe, acid fast, and fungal cultures. The wounds were then irrigated with 3 liters of normal saline using cysto tubing. Post incision and drainage wound measurements of the plantar heel wound was 4.5cm x 4.5cm x 0.5cm and the posterior heel wound was 1.2cm x 1.2cm x 0.5cm. The wounds were packed with betadine soaked kerlix, then dressed with kerlix, ABD, and ANIKA wraps. Capillary refill time of the toes on the left foot was also noted to be brisk at this time. A sign-out was performed. The patient tolerated anesthesia and the procedure well, and was transferred to PAC-U with vital signs stable and vascular status intact to the left lower extremity. Needle and sponge counts were correct X 2 at the end of the case. Dr. Fredrick Oneil was present, scrubbed, and participated in all vital aspects of the procedure. After a brief stay in PAC-U, the patient will be admitted back to the floor for continued monitoring, wound care, and IV antibiotics. Will likely place wound vac once bleeding has been controlled. 10/10/18 17:54 10/10/18 17:57
[2018-10-10] MEDS ORDERED: D5% in Water 1,000 ML IVC PRN (17:57)
[2018-10-10] MEDS ORDERED: Dextrose Gel 15 GM/37.5 ML TUBE PO PRN ×2 (17:57)
[2018-10-10] MEDS ORDERED: Dextrose 4 GM Chewable Tablets PO PRN ×2 (17:57)
[2018-10-10] MEDS ORDERED: *HR* Dextrose 50 % in Water (Syg) 50 ML SYRINGE IVP PRN (17:57)
[2018-10-10] MEDS: 0.9 % Sodium Chloride 1,000 ML IVC SCH (19:19)
[2018-10-10] MEDS: Famotidine 20 MG TABLET PO SCH (21:26)
[2018-10-10] MEDS: Insulin DETEMIR 100 UNIT/ML X5UNITS SQ SCH (21:26)
[2018-10-11] MEDS: Piperacillin/Tazobactam 3.375 GM in 0.9 % Sodium Chloride Mini Bag 100 ML IVPB SCH ×3 (00:24→16:49)
[2018-10-11 05:01] LABS: Basophils # 0.1 K/mcL (0.0-0.2); Basophils % 0.5 %; Eosinophils # 0.1 K/mcL (0.0-0.6); Eosinophils % 1.2 %; Hematocrit 26.4 % (35.3-44.9); Hemoglobin 7.8 g/dL (11.5-15.4); Immature Granulocytes % 1.6 % (0-4); Lymphocytes # 1.4 K/mcL (0.6-4.6); Lymphocytes % 12.5 %; Mean Corpuscular HGB Conc 29.5 g/dL (31.6-35.5); Mean Corpuscular Hemoglobin 24.7 pg (28.0-33.3); Mean Corpuscular Volume 83.5 fL (83.0-100.0); Monocytes # 0.9 K/mcL (0.0-1.3); Monocytes % 7.6 %; Neutrophils # 8.7 K/mcL (1.6-8.9); Nucleated Red Blood Cells 0.2 /100 WBC (0); Platelet Count 389 K/mcL (140-400); Red Blood Count 3.16 M/mcL (3.82-4.97); Red Cell Distribution Width 17.9 % (11.5-14.5); Segmented Neutrophils % 76.6 %
[2018-10-11 05:21] LABS: Calcium 8.3 mg/dL (8.6-10.3); Potassium 4.4 mEq/L (3.5-5.1)
[2018-10-11] MEDS: *HR* Enoxaparin 30 MG/0.3 ML SYRINGE SQ SCH (05:55)
[2018-10-11] MEDS ORDERED: *HR* Enoxaparin 30 MG/0.3 ML SYRINGE SQ SCH (06:00)
[2018-10-11] MEDS: 0.9 % Sodium Chloride 1,000 ML IVC SCH ×2 (06:16→17:09)
[2018-10-11] MEDS ORDERED: Aminoglycoside Consult 1 EACH MC ONE (07:41)
[2018-10-11] MEDS: Insulin LISPRO 300 UNITS/3 ML VIAL SQ SCH ×7 (08:35→20:56)
[2018-10-11] MEDS: Insulin DETEMIR 100 UNIT/ML X5UNITS SQ SCH ×2 (08:36→20:56)
[2018-10-11] MEDS: Aspirin 81 MG TAB.CHEW PO SCH (08:37)
[2018-10-11] MEDS: Gabapentin 300 MG CAPSULE PO SCH ×2 (08:37→20:56)
[2018-10-11] MEDS: Magnesium Oxide 400 MG TABLET PO SCH (08:38)
--- NOTE | 2018-10-11 09:47 | Podiatry Progress Note ---
Date of Encounter: 10/11/18 Time of Encounter: 09:45 - Assessment and Plan (1) Foot abscess, left Current Visit: Yes Status: Acute 1. Patient progressing well s/p I&D. 2. Continue to monitor operative culture results and we will work with ID on appropriate antibiotic recommendations at discharge. Limited concern for osteomyelitis at this time based on intraoperative findings and MRI results. No bone cultures were obtained. 3. Follow up repeat blood cultures. Will consider repeat I&D if clinical picture does not improve. Continue local wound care for. Wound vac will be placed Saturday. 4. Elevation of the leg with prevalon boot is recommended to offload the wounds. 5. Continue to monitor Hemoglobin and recommend transfusion if below 7. Subjective Principal diagnosis: s/p I&D left foot Interval history: Patient progressing well POD 1 s/p left foot I&D. Operative cultures pending. Bacteremic based on initial blood cultures. repeat cultures pending. Hemoglobin now 7.8. Dressing is clean, dry, and intact although the dressing is saturated with blood. She has a right BKA. She denies n/v/f/c. Objective - Vital Signs Vital Signs: Vital Signs Temp Pulse Resp BP Pulse Ox 10/11/18 07:56 97.6 F 56 16 127/70 100 10/11/18 04:28 97.6 F 56 18 94/61 98 10/10/18 21:30 97.5 F L 58 16 129/73 99 10/10/18 20:39 97.6 F 62 16 137/76 98 10/10/18 19:20 97.5 F L 57 16 127/74 127 10/10/18 18:52 97.5 F L 65 16 118/74 92 10/10/18 18:08 97.7 F 60 18 118/65 100 Intake and Output 10/10/18 10/11/18 10/11/18 23:59 07:59 15:59 Intake Total 0 / 0 1100 / 1100 Output Total 5 / 5 0 / 0 Balance -5 / -5 1100 / 1100 Intake: IV Fluids 1100 / 1100 0.9 % Sodium Chloride 1,000 ML 1000 / 1000 @ 125 mls/hr IVC .Q8H NATE Rx#: [id number] Zosyn 3.375 GM In 0.9 % Sodium 100 / 100 Chloride (Mini-Bag +) 100 ML @ 25 mls/hr IVPB Q8HR NATE Rx#: [id number] Oral 0 / 0 0 / 0 Output: Urine 0 / 0 0 / 0 Estimated Blood Loss 5 / 5 Other: Meal Dinner # Voids 1 # Bowel Movements 0 Weight 131.1 kg Blood Glucose* 152 206 Patient Weight 10/11/18 23:59 Weight 131.1 kg - Exam Exam: Alert, oriented x3, no acute distress. Right BKA. Vascular: Left foot cap refill less than 3 seconds to all digits. Pulses non- palpable. Dermatology: left posterior ankle and plantar heel wounds with granular bleeding base. No actively pumping vessels. No evidence of necrosis. Left leg with er ythema with superficial abrasions, stable. Musculoskeletal: Able to move all toes on left and PF/DF at ankle. No pain with manual compression of calf. Neuro: Sensations diminished left lower extremity - Lab Result Diagrams: 10/11/18 04:45 10/11/18 04:45 Labs: Abnormal lab results WBC 11.4 K/mcL (4.3-11.1) H 10/11/18 04:45 RBC 3.16 M/mcL (3.82-4.97) L 10/11/18 04:45 Hgb 7.8 g/dL (11.5-15.4) L 10/11/18 04:45 Hct 26.4 % (35.3-44.9) L 10/11/18 04:45 MCH 24.7 pg (28.0-33.3) L 10/11/18 04:45 MCHC 29.5 g/dL (31.6-35.5) L 10/11/18 04:45 RDW 17.9 % (11.5-14.5) H 10/11/18 04:45 Nucleated RBCs/100 WBC 0.2 /100 WBC (0) H 10/11/18 04:45 ESR >= 130 mm/hr (0-15) H 10/07/18 18:23 VBG pCO2 32 mmHg (41-51) L 10/07/18 21:02 VBG pO2 84 mmHg (25-50) H 10/07/18 21:02 VBG HCO3 17 mEq/L (21-27) L 10/07/18 21:02 Sodium 131 mEq/L (136-145) L 10/11/18 04:45 Chloride 108 mEq/L (98-107) H 10/11/18 04:45 Carbon Dioxide 12 mEq/L (23-29) L 10/11/18 04:45 BUN 54 mg/dL (6-20) H 10/11/18 04:45 Creatinine 2.38 mg/dL (0.60-1.20) H 10/11/18 04:45 Est GFR ( Amer) 26 (> 60) L 10/11/18 04:45 Est GFR (Non-Af Amer) 21 (> 60) L 10/11/18 04:45 Glucose 211 mg/dL (70-105) H 10/11/18 04:45 POC Glucose 173 mg/dL (70-99) H 10/10/18 09:09 Hemoglobin A1c 10.0 % (-5.6) H 10/08/18 05:01 Calcium 8.3 mg/dL (8.6-10.3) L 10/11/18 04:45 C-Reactive Protein 156 mg/L (Less than 10) H 10/08/18 05:01 Beta-Hydroxybutyric Acd 0.29 mmol/L (0.02-0.27) H 10/07/18 20:51 Urine Clarity Cloudy (Clear) A 10/10/18 00:43 Urine Protein >=300 mg/dL (Neg-Trace) H 10/10/18 00:43 Urine Blood Large (Negative) H 10/10/18 00:43 Ur Leukocyte Esterase Moderate (Negative) H 10/10/18 00:43 Urine Microscopic RBC 5-15 per hpf (0-3) H 10/10/18 00:43 Urine Microscopic WBC 50-100 per hpf (0-3) H 10/10/18 00:43 Ur Squamous Epith Cells Many per lpf (None-Few) H 10/10/18 00:43 Ur Culture Indicated? NO. (NO) A 10/10/18 00:43 Vancomycin Trough 24 mcg/mL (5-10) H 10/09/18 13:55 Streptococcus sp PCR DETECTED (Not Detect) A 10/07/18 18:23 Group B Strep (PCR) DETECTED (Not Detect) A 10/07/18 18:23 Microbiology, Last 48 Hours 10/10/18 17:04 Anaerobic Culture - Preliminary Left Foot Culture is incubating. 10/10/18 17:04 Surgical Biopsy Culture - Preliminary Left Foot 10/07/18 18:23 Blood Culture - Final Peripheral Venipuncture Strep agalactiae - (Group B) 10/10/18 10:02 Blood Culture - Preliminary Peripheral Venipuncture Culture is incubating and being continuously monitored for growth. Final report to follow. 10/10/18 10:00 Blood Culture - Preliminary Peripheral Venipuncture Culture is incubating and being continuously monitored for growth. Final report to follow. Consult Discharge Plan - Plan Referrals: cali,Matteo Velez MD [Primary Care Provider] -
--- NOTE | 2018-10-11 11:05 | Internal Med Progress Note ---
<Alexander Loredo - Last Filed: 10/11/18 11:02> Hospitalist Progress Note - Encounter Date of Encounter: 10/11/18 Time of Encounter: 11:02 - Subjective Interval History: No acute events overnight. Patient underwent incision and drainage of left foot abscess by podiatry. Spoke with podiatry and they are stating there is no concern for osteomyelitis this is most likely a soft tissue infection. Patient is lying comfortably in bed without any complaints. She denies headache, cough, shortness of breath, chest pain. She is tolerating her diet. She is having bowel movements and urinating without problems. - Exam Vitals: Temp Pulse Resp BP Pulse Ox 97.6 F 56 16 127/70 100 10/11/18 07:56 10/11/18 07:56 10/11/18 07:56 10/11/18 07:56 10/11/18 07:56 Exam: General: pleasant, without distress Cardiovascualr: Regular rate and rhythm with no murmur, absent gallops or rubs, absent pedal edema, radial pulses 2 out of 4 Lungs: Clear to auscultation bilaterally, not in respiratory distress Abdomen: Soft nontender, nondistended positive bowel sounds, absent hepatomegaly MSK: Since left lower extremity is bandaged. There is erythema up to mid [place] that has improved. Patient has a right BKA. Neuro: Alert oriented 3 with no focal deficit Psych: good insight and judgment, - Assessment and Plan (1) Sepsis Current Visit: Yes Status: Acute Assessment and Plan: Tachypnea and tachycardia, leukocytosis on admission Secondary to possible pneumonia, right lower extremity cellulitis, streptococcal bacteremia Leukocytosis improving. Tachycardia and tachypnea resolved Influenza negative Surgical biopsy cultures pending of left foot. Repeat blood cultures on are negative thus far (2) Cellulitis of left lower extremity Current Visit: Yes Status: Acute Assessment and Plan: She has cellulitis of left lower extremity Foot x-ray shows soft tissue wound on the left heel without underlying bony abnormality Lower extremity CT shows large soft tissue ulceration measuring 5 cm plantar margin of the calcaneus. MRI: Large shallow soft tissue ulceration of the pelvic per aspect of the heel with diffuse subcutaneous edema and 2 x 1.4 x 1.4 cm complex fluid collection in the subcutaneous fat of the posterior aspect of the heel compatible with an abscess. There are no signs of osteomyelitis. Underwent I&D of left foot abscess awaiting operative cultures. Infectious disease helping with antibiotic recommendations. Blood cultures on 10/07 1 out of 2 PCR + for group B strep. Repeat blood cultures on 10/10/18 negative 2 Continue vancomycin and Zosyn awaiting sensitivities before de-escalation (3) Acute kidney injury superimposed on chronic kidney disease Current Visit: Yes Status: Acute Assessment and Plan: Acute on chronic kidney disease stage III Likely secondary to sepsis. She has some crying continues to worsen maybe worsening 2nd to vancomycin and zosyn regimen Avoid nephrotoxic agents. FENA: 0.6%, prerenal She was given IV fluids but there was no improvement in her kidney function. Her hemoglobin has also draw from 9.9 on admission to 7.8. This may also be causing prerenal REMY. We will obtain retroperitoneal ultrasound (4) Anemia Current Visit: Yes Status: Acute Assessment and Plan: Patient has chronic anemia, anemia of chronic disease Hgb trending down likely secondary to postop as well as infection hemodynamically stable no signs of bleeding We will continue to monitor with repeating CBC tomorrow. We will place if hemoglobin is less than 7 (5) Bacteremia Current Visit: Yes Status: Acute Assessment and Plan: Since 09/2618 blood cultures 1 out of 2 resulted in group B strep Repeat cultures on 10/10 preliminarily negative source: LLE cellulitis Currently patient is on vancomycin and Zosyn Infectious disease recommendations appreciated (6) CAD (coronary artery disease) Current Visit: Yes Status: Chronic Assessment and Plan: Patient has a history of coronary artery disease She denies any chest pain Continue aspirin, statin, Plavix, metoprolol. Lisinopril held due to REMY (7) CHF (congestive heart failure) Current Visit: Yes Status: Acute Assessment and Plan: She has a history of congestive heart failure is not in acute exacerbation Patient's echocardiogram on 04/20/2018 showed LVEF of 60% Patient was on Lasix in the past but does not look like she takes Lasix as it is not part of her home regimen. Holding lisinopril secondary to acute kidney injury. (8) Diabetes Current Visit: Yes Status: Acute Assessment and Plan: Patient's has insulin-dependent diabetes mellitus Patient's glucose levels are controlled Continue current insulin regimen Continue sliding scale insulin Continue diabetic diet. (9) Hypertension Current Visit: Yes Status: Chronic Assessment and Plan: Controlled, continue home medications. (10) Pneumonia Current Visit: Yes Status: Ruled-out Assessment and Plan: From patient's symptomatology is unlikely she has pneumonia as she does not have cough, sputum production and decided increased oxygenation requirements. No further treatment needed. (11) Pressure ulcer, heel, left, unstageable Current Visit: Yes Status: Acute Assessment and Plan: She has a left heel pressure ulcer that has been ongoing for 1 month Her ESR is elevated at 130 Plan as above She is on vancomycin and Zosyn. - Time Spent with Patient Total time spent is greater than 50% in coordination of care (as documented) at patient's floor/unit and/or counseling patient: Internal Medicine: Result - Labs CBC & Chem 7: 10/11/18 04:45 10/11/18 04:45 Labs: Short CBC 10/11/18 Range/Units 04:45 WBC 11.4 H (4.3-11.1) K/mcL Hgb 7.8 L (11.5-15.4) g/dL Hct 26.4 L (35.3-44.9) % Plt Count 389 (140-400) K/mcL Neutrophils # 8.7 (1.6-8.9) K/mcL BMP 10/11/18 04:45 Sodium 131 L Potassium 4.4 Chloride 108 H Carbon Dioxide 12 L BUN 54 H Creatinine 2.38 H Glucose 211 H Calcium 8.3 L Consult Discharge Plan - Plan [facility]: [facility]Primary Care Provider[facility] - <Chang Johnston - Last Filed: 10/11/18 18:25> Hospitalist Progress Note - Encounter Date of Encounter: 10/11/18 - Exam Vitals: Temp Pulse Resp BP Pulse Ox 97.4 F L 58 16 144/76 99 10/11/18 15:51 10/11/18 15:51 10/11/18 15:51 10/11/18 15:51 10/11/18 15:51 - Assessment and Plan (1) Acute kidney injury Current Visit: Yes Status: Acute (2) Hyponatremia Current Visit: No Status: Acute (3) Chronic venous insufficiency Current Visit: Yes Status: Acute (4) Anemia Current Visit: Yes Status: Acute (5) Cellulitis of left lower extremity Current Visit: Yes Status: Acute (6) CAD (coronary artery disease) Current Visit: Yes Status: Chronic (7) Leukocytosis Current Visit: No Status: Acute (8) Pneumonia Current Visit: Yes Status: Ruled-out - Time Spent with Patient Total time spent is greater than 50% in coordination of care (as documented) at patient's floor/unit and/or counseling patient: Internal Medicine: Result - Labs CBC & Chem 7: 10/11/18 04:45 10/11/18 04:45 Labs: Short CBC 10/11/18 Range/Units 04:45 WBC 11.4 H (4.3-11.1) K/mcL Hgb 7.8 L (11.5-15.4) g/dL Hct 26.4 L (35.3-44.9) % Plt Count 389 (140-400) K/mcL Neutrophils # 8.7 (1.6-8.9) K/mcL BMP 10/11/18 04:45 Sodium 131 L Potassium 4.4 Chloride 108 H Carbon Dioxide 12 L BUN 54 H Creatinine 2.38 H Glucose 211 H Calcium 8.3 L - Impressions Impressions Retroperitoneum Ultrasound 10/11/18 13:30 IMPRESSION: Indeterminate findings upper pole right kidney with cystic area and probable calcification which may be related to the cyst itself or could reflect intrarenal stones. Correlation with CT abdomen and pelvis may be indicated for additional evaluation. Unremarkable ultrasound of the left kidney and urinary bladder. Hepatic steatosis and hepatomegaly are incidentally noted. D/ / Jasper Trejo / Jasper Trejo Interpreting Provider: Jasper Trejo - Attending Attestation I examined this patient and my medical decision-making was reviewed with the Resident Physician. I agree with the documented findings, disposition and treatment plan as described except to the extent set forth below. <Alexander Loredo - Last Filed: 10/11/18 11:02> (1) Sepsis Qualifiers: Sepsis type: Streptococcus group B Qualified Code(s): A40.1 - Sepsis due to streptococcus, group B (4) Anemia Qualifiers: Anemia type: unspecified type Qualified Code(s): D64.9 - Anemia, unspecified (6) CAD (coronary artery disease) Qualifiers: Coronary Disease-Associated Artery/Lesion type: [place] artery [place] vs. transplanted heart: [place] heart Associated angina: without angina Qualified Code(s): I25.10 - Atherosclerotic heart disease of [place] coronary artery without angina pectoris (7) CHF (congestive heart failure) Qualifiers: Heart failure type: diastolic Heart failure chronicity: acute on chronic Qualified Code(s): I50.33 - Acute on chronic diastolic (congestive) heart failure (8) Diabetes Qualifiers: Diabetes mellitus type: type 2 Diabetes mellitus long term care pharmacist insulin use: unspecified intermediate insulin use status Diabetes mellitus complication status: with circulatory complication Diabetes mellitus complication detail: with other circulatory complications Qualified Code(s): E11.59 - Type 2 diabetes mellitus with other circulatory complications (9) Hypertension Qualifiers: Hypertension type: essential hypertension Qualified Code(s): I10 - Essential (primary) hypertension (10) Pneumonia Qualifiers: Pneumonia type: due to unspecified organism Laterality: right Lung location: lower lobe of lung Qualified Code(s): J18.1 - Lobar pneumonia, unspecified organism <Chang Johnston - Last Filed: 10/11/18 18:25> (4) Anemia Qualifiers: Anemia type: unspecified type Qualified Code(s): D64.9 - Anemia, unspecified (6) CAD (coronary artery disease) Qualifiers: Coronary Disease-Associated Artery/Lesion type: [place] artery [place] vs. transplanted heart: [place] heart Associated angina: without angina Qualified Code(s): I25.10 - Atherosclerotic heart disease of [place] coronary artery without angina pectoris (7) Leukocytosis Qualifiers: Qualified Code(s): D72.829 - Elevated white blood cell count, unspecified (8) Pneumonia Qualifiers: Pneumonia type: due to unspecified organism Laterality: right Lung location: lower lobe of lung Qualified Code(s): J18.1 - Lobar pneumonia, unspecified o rganism
[2018-10-11] MEDS: Acetaminophen 325 MG TABLET PO PRN (16:51)
[2018-10-11] MEDS: Famotidine 20 MG TABLET PO SCH (20:56)
[2018-10-12] MEDS: Piperacillin/Tazobactam 3.375 GM in 0.9 % Sodium Chloride Mini Bag 100 ML IVPB SCH ×3 (00:09→16:34)
[2018-10-12 04:25] LABS: Basophils # 0.1 K/mcL (0.0-0.2); Basophils % 0.4 %; Eosinophils # 0.1 K/mcL (0.0-0.6); Eosinophils % 0.9 %; Hematocrit 29.3 % (35.3-44.9); Hemoglobin 8.8 g/dL (11.5-15.4); Immature Granulocytes % 4.7 % (0-4); Lymphocytes # 1.4 K/mcL (0.6-4.6); Lymphocytes % 9.8 %; Mean Corpuscular Hemoglobin 25.4 pg (28.0-33.3); Mean Corpuscular Volume 84.4 fL (83.0-100.0); Mean Platelet Volume 10.1 fL (9.4-12.4); Neutrophils # 10.8 K/mcL (1.6-8.9); Nucleated Red Blood Cells 0.9 /100 WBC (0); Platelet Count 418 K/mcL (140-400); Red Blood Count 3.47 M/mcL (3.82-4.97); Red Cell Distribution Width 18.4 % (11.5-14.5); Segmented Neutrophils % 77.2 %
[2018-10-12 04:40] LABS: Calcium 8.2 mg/dL (8.6-10.3); Potassium 4.5 mEq/L (3.5-5.1)
[2018-10-12] MEDS: *HR* Enoxaparin 30 MG/0.3 ML SYRINGE SQ SCH (06:23)
[2018-10-12] MEDS: Gabapentin 300 MG CAPSULE PO SCH ×2 (08:31→20:14)
[2018-10-12] MEDS: Aspirin 81 MG TAB.CHEW PO SCH (08:31)
[2018-10-12] MEDS: Magnesium Oxide 400 MG TABLET PO SCH (08:31)
[2018-10-12] MEDS: Insulin DETEMIR 100 UNIT/ML X5UNITS SQ SCH ×2 (08:32→20:13)
[2018-10-12] MEDS: Insulin LISPRO 300 UNITS/3 ML VIAL SQ SCH ×7 (08:33→20:12)
--- NOTE | 2018-10-12 11:47 | Internal Med Progress Note ---
<Alexander Loredo - Last Filed: 10/12/18 11:44> Hospitalist Progress Note - Encounter Date of Encounter: 10/12/18 Time of Encounter: 11:45 - Subjective Interval History: Patient reports no acute overnight events. Sugars states that she has not had a bowel movement for 48 hours and feels bloated and distended. She is passing gas. She does not have any problems urinating. She is tolerating her diet. She denies headache, chest pain, cough, sputum production. She reports her left lower extremity erythema is the same as yesterday. - Exam Vitals: Temp Pulse Resp BP Pulse Ox 97.3 F L 64 15 132/76 97 10/12/18 05:10 10/12/18 05:10 10/12/18 05:10 10/12/18 05:10 10/12/18 05:10 Exam: General: pleasant, without distress Cardiovascualr: Regular rate and rhythm with no murmur, absent gallops or rubs, absent pedal edema, radial pulses 2 out of 4 Lungs: Clear to auscultation bilaterally, not in respiratory distress Abdomen: Soft nontender, distended positive bowel sounds, absent hepatomegaly MSK: left lower extremity is bandaged. There is erythema up to mid addison that has improved. Patient has a right BKA. Neuro: Alert oriented 3 with no focal deficit Psych: good insight and judgment, - Assessment and Plan (1) Sepsis Current Visit: Yes Status: Acute Assessment and Plan: Tachypnea and tachycardia, leukocytosis on admission Secondary to right lower extremity cellulitis, streptococcal bacteremia Leukocytosis improving. Tachycardia and tachypnea resolved Influenza negative Surgical biopsy cultures of left foot is growing gram-negative jose alejandro Repeat blood cultures on are negative thus far (2) Cellulitis of left lower extremity Current Visit: Yes Status: Acute Assessment and Plan: She has cellulitis of left lower extremity Foot x-ray shows soft tissue wound on the left heel without underlying bony abnormality Lower extremity CT shows large soft tissue ulceration measuring 5 cm plantar margin of the calcaneus. MRI: Large shallow soft tissue ulceration of the pelvic per aspect of the heel with diffuse subcutaneous edema and 2 x 1.4 x 1.4 cm complex fluid collection in the subcutaneous fat of the posterior aspect of the heel compatible with an abscess. There are no signs of osteomyelitis. Underwent I&D of left foot abscess awaiting operative cultures. Infectious disease helping with antibiotic recommendations. Blood cultures on 10/07 1 out of 2 PCR + for group B strep. Repeat blood cultures on 10/10/18 negative 2 Left foot cultures growing gram-negative jose alejandro Continue vancomycin and Zosyn awaiting sensitivities before de-escalation (3) Acute kidney injury superimposed on chronic kidney disease Current Visit: Yes Status: Acute Assessment and Plan: Acute on chronic kidney disease stage III Likely secondary to sepsis. Serum creatinine improved slightly from 2.38 to 2.27 2nd to vancomycin and zosyn regimen Avoid nephrotoxic agents. FENA: 0.6%, prerenal She was given IV fluids but there was no improvement in her kidney function. Patient's hemoglobin stable at 8.8. Retroperitoneal ultrasound shows possible intrarenal stones of the right kidney and unremarkable ultrasound the left kidney and urinary bladder. (4) Anemia Current Visit: Yes Status: Acute Assessment and Plan: Patient has chronic anemia, anemia of chronic disease Hgb trending down likely secondary to postop as well as infection hemodynamically stable no signs of bleeding We will continue to monitor with repeating CBC tomorrow. We will place if hemoglobin is less than 7 (5) Bacteremia Current Visit: Yes Status: Acute Assessment and Plan: Since 09/2618 blood cultures 1 out of 2 resulted in group B strep Repeat cultures on 10/10 preliminarily negative source: LLE cellulitis Currently patient is on vancomycin and Zosyn Infectious disease recommendations appreciated (6) CAD (coronary artery disease) Current Visit: Yes Status: Chronic Assessment and Plan: Patient has a history of coronary artery disease She denies any chest pain Continue aspirin, statin, Plavix, metoprolol. Lisinopril held due to REMY (7) CHF (congestive heart failure) Current Visit: Yes Status: Acute Assessment and Plan: She has a history of congestive heart failure is not in acute exacerbation Patient's echocardiogram on 04/20/2018 showed LVEF of 60% Patient was on Lasix in the past but does not look like she takes Lasix as it is not part of her home regimen. Holding lisinopril secondary to acute kidney injury. (8) Diabetes Current Visit: Yes Status: Acute Assessment and Plan: Patient's has insulin-dependent diabetes mellitus Patient's glucose levels are controlled Continue current insulin regimen Continue sliding scale insulin Continue diabetic diet. (9) Hypertension Current Visit: Yes Status: Chronic Assessment and Plan: Controlled, continue home medications. (10) Pressure ulcer, heel, left, unstageable Current Visit: Yes Status: Acute Assessment and Plan: She has a left heel pressure ulcer that has been ongoing for 1 month Her ESR is elevated at 130 Plan as above She is on vancomycin and Zosyn. - Time Spent with Patient Total time spent is greater than 50% in coordination of care (as documented) at patient's floor/unit and/or counseling patient: Internal Medicine: Result - Labs CBC & Chem 7: 10/12/18 04:05 10/12/18 04:00 Labs: Short CBC 10/12/18 Range/Units 04:05 WBC 13.9 H (4.3-11.1) K/mcL Hgb 8.8 L (11.5-15.4) g/dL Hct 29.3 L (35.3-44.9) % Plt Count 418 H (140-400) K/mcL Neutrophils # 10.8 H (1.6-8.9) K/mcL BMP 10/12/18 04:00 Sodium 132 L Potassium 4.5 Chloride 107 Carbon Dioxide 15 L BUN 53 H Creatinine 2.27 H Glucose 168 H Calcium 8.2 L - Impressions Impressions Retroperitoneum Ultrasound 10/11/18 13:30 IMPRESSION: Indeterminate findings upper pole right kidney with cystic area and probable calcification which may be related to the cyst itself or could reflect intrarenal stones. Correlation with CT abdomen and pelvis may be indicated for additional evaluation. Unremarkable ultrasound of the left kidney and urinary bladder. Hepatic steatosis and hepatomegaly are incidentally noted. D/ / Jasper Trejo / Jasper Trejo Interpreting Provider: Jasper Trejo Consult Discharge Plan - Plan Referrals: Matteo leiva MD [Primary Care Provider] - <Chang Johnston - Last Filed: 10/12/18 14:25> Hospitalist Progress Note - Encounter Date of Encounter: 10/12/18 - Exam Vitals: Temp Pulse Resp BP Pulse Ox 97.6 F 57 17 129/68 99 10/12/18 12:12 10/12/18 12:12 10/12/18 12:12 10/12/18 12:12 10/12/18 12:12 - Assessment and Plan (1) Cellulitis of left lower extremity Current Visit: Yes Status: Acute (2) Acute kidney injury Current Visit: Yes Status: Acute (3) Hyponatremia Current Visit: No Status: Acute (4) Chronic venous insufficiency Current Visit: Yes Status: Acute (5) Anemia Current Visit: Yes Status: Acute (6) CAD (coronary artery disease) Current Visit: Yes Status: Chronic (7) Leukocytosis Current Visit: No Status: Acute (8) Pneumonia Current Visit: Yes Status: Ruled-out - Time Spent with Patient Total time spent is greater than 50% in coordination of care (as documented) at patient's floor/unit and/or counseling patient: Internal Medicine: Result - Labs CBC & Chem 7: 10/12/18 04:05 10/12/18 04:00 Labs: Short CBC 10/12/18 Range/Units 04:05 WBC 13.9 H (4.3-11.1) K/mcL Hgb 8.8 L (11.5-15.4) g/dL Hct 29.3 L (35.3-44.9) % Plt Count 418 H (140-400) K/mcL Neutrophils # 10.8 H (1.6-8.9) K/mcL BMP 10/12/18 04:00 Sodium 132 L Potassium 4.5 Chloride 107 Carbon Dioxide 15 L BUN 53 H Creatinine 2.27 H Glucose 168 H Calcium 8.2 L - Impressions Impressions Retroperitoneum Ultrasound 10/11/18 13:30 IMPRESSION: Indeterminate findings upper pole right kidney with cystic area and probable calcification which may be related to the cyst itself or could reflect intrarenal stones. Correlation with CT abdomen and pelvis may be indicated for additional evaluation. Unremarkable ultrasound of the left kidney and urinary bladder. Hepatic steatosis and hepatomegaly are incidentally noted. D/ / Jasper Trejo / Jasper Trejo Interpreting Provider: Jasper Trejo - Attending Attestation I examined this patient and my medical decision-making was reviewed with the Resident Physician. I agree with the documented findings, disposition and treatment plan as described except to the extent set forth below. _ <GertrudeAlexander Saab - Last Filed: 10/12/18 11:44> (1) Sepsis Qualifiers: Sepsis type: Streptococcus group B Qualified Code(s): A40.1 - Sepsis due to streptococcus, group B (4) Anemia Qualifiers: Anemia type: unspecified type Qualified Code(s): D64.9 - Anemia, unspecified (6) CAD (coronary artery disease) Qualifiers: Coronary Disease-Associated Artery/Lesion type: [place] artery [place] vs. transplanted heart: [place] heart Associated angina: without angina Qualified Code(s): I25.10 - Atherosclerotic heart disease of [place] coronary artery w ithout angina pectoris (7) CHF (congestive heart failure) Qualifiers: Heart failure type: diastolic Heart failure chronicity: acute on chronic Qualified Code(s): I50.33 - Acute on chronic diastolic (congestive) heart failure (8) Diabetes Qualifiers: Diabetes mellitus type: type 2 Diabetes mellitus shelter insulin use: unspecified shelter insulin use status Diabetes mellitus complication status: with circulatory complication Diabetes mellitus complication detail: with other circulatory complications Qualified Code(s): E11.59 - Type 2 diabetes mellitus with other circulatory complications (9) Hypertension Qualifiers: Hypertension type: essential hypertension Qualified Code(s): I10 - Essential (primary) hypertension <Chang Johnston - Last Filed: 10/12/18 14:25> (5) Anemia Qualifiers: Anemia type: unspecified type Qualified Code(s): D64.9 - Anemia, unspecified (6) CAD (coronary artery disease) Qualifiers: Coronary Disease-Associated Artery/Lesion type: [place] artery [place] vs. transplanted heart: [place] heart Associated angina: without angina Qualified Code(s): I25.10 - Atherosclerotic heart disease of [place] coronary artery without angina pectoris (7) Leukocytosis Qualifiers: Qualified Code(s): D72.829 - Elevated white blood cell count, unspecified (8) Pneumonia Qualifiers: Pneumonia type: due to unspecified organism Laterality: right Lung location: lower lobe of lung Qualified Code(s): J18.1 - Lobar pneumonia, unspecified organism
[2018-10-12] MEDS ORDERED: MOM Conc 10 ML UD.LIQ PO ONE (11:52)
[2018-10-12] MEDS: Acetaminophen 325 MG TABLET PO PRN (12:55)
[2018-10-12] MEDS: Famotidine 20 MG TABLET PO SCH (20:14)
[2018-10-13] MEDS: Piperacillin/Tazobactam 3.375 GM in 0.9 % Sodium Chloride Mini Bag 100 ML IVPB SCH ×2 (00:50→09:01)
[2018-10-13] MEDS: *HR* Enoxaparin 30 MG/0.3 ML SYRINGE SQ SCH (05:11)
[2018-10-13 05:22] LABS: Basophils % 0.5 %; Eosinophils % 0.9 %
[2018-10-13 05:24] LABS: Basophils # 0.1 K/mcL (0.0-0.2); Eosinophils # 0.1 K/mcL (0.0-0.6); Hematocrit 28.1 % (35.3-44.9); Hemoglobin 8.3 g/dL (11.5-15.4); Immature Granulocytes % 3.9 % (0-4); Lymphocytes # 1.7 K/mcL (0.6-4.6); Mean Corpuscular HGB Conc 29.5 g/dL (31.6-35.5); Mean Corpuscular Hemoglobin 25.2 pg (28.0-33.3); Mean Corpuscular Volume 85.2 fL (83.0-100.0); Mean Platelet Volume 9.7 fL (9.4-12.4); Monocytes % 7.4 %; Neutrophils # 9.7 K/mcL (1.6-8.9); Nucleated Red Blood Cells 1.7 /100 WBC (0); Platelet Count 431 K/mcL (140-400); Red Cell Distribution Width 18.5 % (11.5-14.5); Segmented Neutrophils % 74.3 %
[2018-10-13 05:42] LABS: Anisocytosis 1+ (Not Present); Calcium 8.7 mg/dL (8.6-10.3); Hypochromasia Present (Not Present); Platelet Estimate Increased (Normal); Poikilocytosis 1+ (Not Present)
[2018-10-13] MEDS: Aspirin 81 MG TAB.CHEW PO SCH (09:01)
[2018-10-13] MEDS: Gabapentin 300 MG CAPSULE PO SCH ×2 (09:01→21:59)
[2018-10-13] MEDS: Magnesium Oxide 400 MG TABLET PO SCH (09:02)
[2018-10-13] MEDS: Insulin LISPRO 300 UNITS/3 ML VIAL SQ SCH ×6 (09:02→21:58)
[2018-10-13] MEDS: Insulin DETEMIR 100 UNIT/ML X5UNITS SQ SCH (09:06)
--- NOTE | 2018-10-13 09:16 | Internal Med Progress Note ---
<Hoa Sanders M - Last Filed: 10/13/18 16:37> Hospitalist Progress Note - Encounter Date of Encounter: 10/13/18 Time of Encounter: 09:35 - Subjective Interval History: Patient states she is feeling better and states her left foot feels better. Denies left foot pain. Denies chest pain, shortness of breath, abdominal pain, nausea, dysuria, or any new complaints. - Exam Vitals: Temp Pulse Resp BP Pulse Ox 97.9 F 56 19 150/82 98 10/13/18 07:57 10/13/18 07:57 10/13/18 07:57 10/13/18 07:57 10/13/18 07:57 Exam: General: alert, sitting on edge of bed, no acute distres HEENT: atraumatic, normocephalic, oral mucosa moist, normal conjunctiva Cardiac: RRR, no murmur Lungs: CTA bilaterally without wheezing Abdomen: soft, nontender, nondistended MSK: Right BKA. Left lower extremity bandaged with mild erythema up to mid addison that is nontender Neuro: Decreased sensation of right foot. Able to wiggle toes. AAOx3 Psych: appropriate mood and affect Skin: as above. Warm, dry General: pleasant, without distress Cardiovascualr: Regular rate and rhythm with no murmur, absent gallops or rubs, absent pedal edema, radial pulses 2 out of 4 Lungs: Clear to auscultation bilaterally, not in respiratory distress Abdomen: Soft nontender, distended positive bowel sounds, absent hepatomegaly MSK: left lower extremity is bandaged. There is erythema up to mid addison that has improved. Patient has a right BKA. Neuro: Alert oriented 3 with no focal deficit Psych: good insight and judgment, - Assessment and Plan (1) Sepsis Current Visit: Yes Status: Acute Assessment and Plan: Tachypnea, tachycardia, leukocytosis on admission. Improving Due to right lower extremity cellulitis, streptococcal bacteremia Influenza negative Surgical biopsy cultures of left foot grew proteus mirabilis, sutton sensitive Repeat blood cultures on negative to date Zosyn switched to Rocephin Appreciate infectious disease recommendations (2) Cellulitis of left lower extremity Current Visit: Yes Status: Acute Assessment and Plan: Cellulitis LLE Foot x-ray shows soft tissue wound on the left heel without underlying bony abnormality Lower extremity CT shows large soft tissue ulceration measuring 5 cm plantar margin of the calcaneus. MRI: Large shallow soft tissue ulceration of the pelvic per aspect of the heel with diffuse subcutaneous edema and 2 x 1.4 x 1.4 cm complex fluid collection in the subcutaneous fat of the posterior aspect of the heel compatible with an abscess. There are no signs of osteomyelitis. S/p I&D of left foot abscess. Operative culture positive for proteus mirabilis and strep agalactiae Blood cultures on 10/07 1 out of 2 PCR + for group B strep. Repeat blood cultures on 10/10/18 Negative to date Initially on vancomycin, however discontinued due to REMY and elevated trough. Appreciate Infectious Disease recommendations. Plan: zosyn discontinued and started Rocephin 2g IV qd today. Will need prolong IV abx course. WIll need vascular access team for IV placement on discharge Will follow up with ID 2 weeks post discharge Podiatry to place wound vac today (3) Pressure ulcer, heel, left, unstageable Current Visit: Yes Status: Acute Assessment and Plan: Left heel pressure ulcer that has been ongoing for 1 month ESR is elevated at 130 Plan as above management per Podiatry Wound vac to be placed today (4) Acute kidney injury superimposed on chronic kidney disease Current Visit: Yes Status: Acute Assessment and Plan: Acute on chronic kidney disease stage III Likely secondary to sepsis, vancomycin and zosyn regimen Serum creatinine improved slightly from 2.27 to 2.22 Given IV fluids with minimal improvement FENA: 0.6%, prerenal Retroperitoneal ultrasound showed upper pole of R kidney with cyst and calcif ication likely infrarenal stones Off vancomycin Avoid nephrotoxic agents. Nephrology has been consulted as her BUN/Cr is not back to baseline (5) Anemia Current Visit: Yes Status: Acute Assessment and Plan: Anemia of chronic disease Hgb trended down to 7.8, likely post operative losses and infection Hgb now 8.3 No evidence of ongoing bleeding Continue to monitor (6) Bacteremia Current Visit: Yes Status: Acute Assessment and Plan: Since 10/07/18 blood cultures 1 out of 2 positive for group B strep Repeat cultures on 10/10 negative to date Likely source: LLE cellulitis Vancomycin and Zosyn discontinued. Now on Rocephin. ID following (7) Diabetes Current Visit: Yes Status: Acute Assessment and Plan: Patient's has insulin-dependent diabetes mellitus Patient's glucose levels are stable Continue current insulin regimen and SSI Diabetic diet (8) Chronic diastolic heart failure Current Visit: No Status: Chronic Assessment and Plan: Not in acute exacerbation Echocardiogram on 04/20/2018 showed LVEF of 60% Not on Lasix Holding lisinopril secondary to acute kidney injury. (9) Hypertension Current Visit: Yes Status: Chronic Assessment and Plan: Stable Holding lisinopril d/t REMY Continue other home meds (10) CAD (coronary artery disease) Current Visit: Yes Status: Chronic Assessment and Plan: Continue with aspirin, statin, Plavix, metoprolol. Lisinopril held due to REMY (11) S/P BKA (below knee amputation) Current Visit: No Status: Acute - Time Spent with Patient Total time spent is greater than 50% in coordination of care (as documented) at patient's floor/unit and/or counseling patient: Internal Medicine: Result - Labs CBC & Chem 7: 10/13/18 05:06 10/13/18 05:06 Labs: Short CBC 10/13/18 Range/Units 05:06 WBC 13.0 H (4.3-11.1) K/mcL Hgb 8.3 L (11.5-15.4) g/dL Hct 28.1 L (35.3-44.9) % Plt Count 431 H (140-400) K/mcL Neutrophils # 9.7 H (1.6-8.9) K/mcL BMP 10/13/18 05:06 Sodium 133 L Potassium 5.0 Chloride 113 H Carbon Dioxide 16 L BUN 49 H Creatinine 2.22 H Glucose 98 Calcium 8.7 Consult Discharge Plan - Plan Referrals: Matteo Love MD [Primary Care Provider] - Prescriptions: cefTRIAXone [Rocephin] 2,000 mg IVPB DAILY 14 Days #14 vial <Chang Johnston - Last Filed: 10/13/18 19:08> Hospitalist Progress Note - Encounter Date of Encounter: 10/13/18 - Exam Vitals: Temp Pulse Resp BP Pulse Ox 97.8 F 55 14 136/82 99 10/13/18 14:13 10/13/18 14:13 10/13/18 14:13 10/13/18 14:13 10/13/18 14:13 - Assessment and Plan (1) Cellulitis of left lower extremity Current Visit: Yes Status: Acute (2) Acute kidney injury Current Visit: Yes Status: Acute (3) Hyponatremia Current Visit: No Status: Acute (4) Chronic venous insufficiency Current Visit: Yes Status: Acute (5) Anemia Current Visit: Yes Status: Acute (6) CAD (coronary artery disease) Current Visit: Yes Status: Chronic (7) Leukocytosis Current Visit: No Status: Acute (8) Pneumonia Current Visit: Yes Status: Ruled-out - Time Spent with Patient Total time spent is greater than 50% in coordination of care (as documented) at patient's floor/unit and/or counseling patient: Internal Medicine: Result - Labs CBC & Chem 7: 10/13/18 05:06 10/13/18 05:06 Labs: Short CBC 10/13/18 Range/Units 05:06 WBC 13.0 H (4.3-11.1) K/mcL Hgb 8.3 L (11.5-15.4) g/dL Hct 28.1 L (35.3-44.9) % Plt Count 431 H (140-400) K/mcL Neutrophils # 9.7 H (1.6-8.9) K/mcL BMP 10/13/18 05:06 Sodium 133 L Potassium 5.0 Chloride 113 H Carbon Dioxide 16 L BUN 49 H Creatinine 2.22 H Glucose 98 Calcium 8.7 - Attending Attestation I examined this patient and my medical decision-making was reviewed with the Resident Physician. I agree with the documented findings, disposition and treatment plan as described except to the extent set forth below. 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 transplanted heart: [place] heart Associated angina: without angina Qualified Code(s): I25.10 - Atherosclerotic heart disease of [place] coronary artery without angina pectoris (11) S/P BKA (below knee amputation) Qualifiers: Laterality: right Qualified Code(s): Z89.511 - Acquired absence of right leg below knee <Chang Johnston - Last Filed: 10/13/18 19:08> (5) Anemia Qualifiers: Anemia type: unspecified type Qualified Code(s): D64.9 - Anemia, unspecified (6) CAD (coronary artery disease) Qualifiers: Coronary Disease-Associated Artery/Lesion type: [place] artery [place] vs. transplanted heart: [place] heart Associated angina: without angina Qualified Code(s): I25.10 - Atherosclerotic heart disease of [place] coronary artery without angina pectoris (7) Leukocytosis Qualifiers: Qualified Code(s): D72.829 - Elevated white blood cell count, unspecified (8) Pneumonia Qualifiers: Pneumonia type: due to unspecified organism Laterality: right Lung location: lower lobe of lung Qualified Code(s): J18.1 - Lobar pneumonia, unspecified organism
--- NOTE | 2018-10-13 10:24 | Infectious Disease Progress No ---
Date of Encounter: 10/13/18 Time of Encounter: 09:35 - Assessment and Plan (1) Sepsis Current Visit: Yes Status: Acute The patient had two SIRS criteria plus REMY on admission. Likely secondary to left foot wound infection. Improved. WBC stable. Tachycardia resolved. Blood cultures drawn 10/07/18 are positive 1/2 for GBS. Repeat blood cultures drawn 10/10/18 are no growth to date 2 sets. Recommendations: Await blood cultures to finalize. Wound care per the Podiatry team. Discontinue Zosyn. Start Rocephin 2 g IV daily. Duration of treatment depends on the clinical picture, but we will likely do a prolonged course of IV antibiotics given that the patient is at high risk for loss of limb if infection progresses and she has already undergone a right AKA. We will follow the patient closely in clinic and base our duration of treatment on how well she does and her inflammatory markers. Monitor renal function and dose-adjust antibiotics. Consults vascular access team for IV placement prior to discharge. We will need weekly CBC, BUNs/creatinine, ESR, and CRP. Will need weekly IV care per protocol. Follow up with ID 2 weeks postdischarge. Qualifiers: Sepsis type: Streptococcus group B Qualified Code(s): A40.1 - Sepsis due to streptococcus, group B (2) Bacteremia Current Visit: Yes Status: Acute Causative organism: Group B strep. Source: Likely the left foot. Blood cultures drawn 10/07/18 are +1 out of 2 sets for GBS Repeat blood cultures drawn 10/10/18 are NGTD2 sets. Currently on Zosyn. (3) Osteomyelitis Current Visit: No Status: Acute Suspected. Location: Left calcaneus. MRI of the left foot showed findings consistent with cellulitis, abscess, and early osteomyelitis versus reactive osteitis. Given the patient's markedly elevated inflammatory markers (ESR greater than 130, CRP 156) I am highly suspicious that there is an underlying osteomyelitis. Podiatry has been consulted. Status post I&D of multiple abscesses 10/10/18. Intraoperative findings not indicative of osteomyelitis, but given the extent of the infection down to the level of the fascia and the fact that patient is high risk for losing her limb, we will treat this with a course of IV antibiotics. Currently on Zosyn. Qualifiers: Osteomyelitis type: acute hematogenous Osteomyelitis location: foot Laterality: left Qualified Code(s): M86.072 - Acute hematogenous osteomyelitis, left ankle and foot (4) Foot abscess, left Current Visit: Yes Status: Acute Location: Left foot. Causative organism: Likely polymicrobial. Intraoperative cultures positive for Proteus mirabilis, but blood cultures were positive for group B strep. MRI of the left foot and ankle showed a large shallow soft tissue ulceration of the plantar aspect of the left heel with diffuse subcutaneous edema compatible w ith cellulitis. There is a 2 x 1.4 x 1.4 cm complex fluid collection in the subcutaneous fat of the posterior lateral aspect of the left heel compatible with an abscess. This does not contact the underlying calcaneus, but there is very mild bone marrow edema in the posterior inferior aspect of the calcaneus with normal T1 signal. No osseous erosion, but this may represent noninfectious reactive osteitis versus early osteomyelitis, although less likely. Podiatry's been consulted.. Status post I&D of multiple abscess 10/10/18. Operative note reviewed. No evidence of osteomyelitis. Currently on Zosyn. (5) Pressure ulcer, heel, left, unstageable Current Visit: Yes Status: Acute Location: Left heel. Ongoing x 1 month. Secondary to moisture-associated skin breakdown. Likely exacerbated by tobacco use, uncontrolled DM, and PAD. Podiatry consulted and following. (6) Chronic venous insufficiency Current Visit: Yes Status: Acute Venous stasis to the LLE vs. cellulitis. Tender and warm to touch, but appears chronic. Recommend compression dressing per previous wound care orders. Management per the Podiatry team. (7) Pneumonia Current Visit: Yes Status: Ruled-out CXR shows central vascular congestion with perihilar edema vs. infiltrate. Moist cough, but no shortness of breath. Respiratory infectious panel negative. PA/Lateral CXR negative for infiltrate. Qualifiers: Pneumonia type: due to unspecified organism Laterality: right Lung location: lower lobe of lung Qualified Code(s): J18.1 - Lobar pneumonia, unspecified organism (8) Acute kidney injury Current Visit: Yes Status: Acute Serum creatinine elevated at 2.22 Likely secondary to sepsis and vanc toxicity. Improved. Continue to trend. Dose-adjust antibiotics and avoid nephrotoxins as able. Vancomycin discontinued. (9) Hyperglycemia Current Visit: Yes Status: Acute Secondary to poorly controlled DM and infection. HgbA1C 10%. Strict glucose control per the primary team. (10) Hyponatremia Current Visit: No Status: Acute Management per the primary team. (11) Type 2 diabetes mellitus Current Visit: No Status: Chronic Qualifiers: Diabetes mellitus medical terminologist insulin use: with residential use Diabetes mellitus complication status: with hyperglycemia Qualified Code(s): E11.65 - Type 2 diabetes mellitus with hyperglycemia; Z79.4 - terminal system operator (current) use of insulin (12) Diabetic neuropathy Current Visit: No Status: Acute Qualifiers: Diabetes mellitus type: type 2 Diabetes mellitus complication detail: diabetic polyneuropathy Qualified Code(s): E11.42 - Type 2 diabetes mellitus with diabetic polyneuropathy (13) Hyperlipidemia Current Visit: No Status: Chronic Qualifiers: Hyperlipidemia type: mixed hyperlipidemia Qualified Code(s): E78.2 - Mixed hyperlipidemia (14) CKD (chronic kidney disease) stage 3, GFR 30-59 ml/min Current Visit: No Status: Chronic (15) Hypertension Current Visit: Yes Status: Chronic Qualifiers: Hypertension type: essential hypertension Qualified Code(s): I10 - Essential (primary) hypertension (16) Chronic diastolic heart failure Current Visit: No Status: Chronic (17) Peripheral arterial disease Current Visit: No Status: Chronic Status post 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 Left lower extremity DESTINY shows findings consistent with mild disease. TCP O2 monitoring consistent with healing Consider vascular to evaluate. (18) Anemia Current Visit: Yes Status: Acute Qualifiers: Anemia type: unspecified type Qualified Code(s): D64.9 - Anemia, unspecified (19) Depression Current Visit: No Status: Chronic Qualifiers: Depression Type: unspecified Qualified Code(s): F32.9 - Major depressive disorder, single episode, unspecified (20) S/P BKA (below knee amputation) Current Visit: No Status: Acute Qualifiers: Laterality: right Qualified Code(s): Z89.511 - Acquired absence of right leg below knee - Subjective Interval history: Patient seen and examined. No acute events noted overnight. Patient states overall she feels well. Denies fevers, chills, or rigors. Denies chest pain or shortness of breath. Reports a moist nonproductive cough that is better today. Denies abdominal pain or urinary complaints. Denies any nausea, vomiting, diarrhea, or constipation, although she is unsure the last time she had a BM. States her appetite is good. She denies any oral thrush any skin lesions. She denies any pain at this time. Infect Dis PN-Objective Data - Labs CBC & Chem 7: 10/14/18 04:30 10/14/18 04:30 Labs: Laboratory Results - last 24 hr 10/12/18 10/12/18 10/12/18 07:50 12:14 16:36 WBC RBC Hgb Hct MCV MCH MCHC RDW Plt Count MPV Immature Gran % Seg Neutrophils % Lymphocytes % Monocytes % Eosinophils % Basophils % Neutrophils # Lymphocytes # Monocytes # Eosinophils # Basophils # Nucleated RBCs/100 WBC Platelet Estimate Hypochromasia Poikilocytosis Anisocytosis Sodium Potassium Chloride Carbon Dioxide BUN Creatinine Est GFR ( Amer) Est GFR (Non-Af Amer) BUN/Creatinine Ratio Glucose POC Glucose 171 H 195 H 132 H Calculated Osmolality Calcium 10/12/18 10/13/18 10/13/18 20:12 05:06 05:06 WBC 13.0 H RBC 3.30 L Hgb 8.3 L Hct 28.1 L MCV 85.2 MCH 25.2 L MCHC 29.5 L RDW 18.5 H Plt Count 431 H MPV 9.7 Immature Gran % 3.9 Seg Neutrophils % 74.3 Lymphocytes % 13.0 Monocytes % 7.4 Eosinophils % 0.9 Basophils % 0.5 Neutrophils # 9.7 H Lymphocytes # 1.7 Monocytes # 1.0 Eosinophils # 0.1 Basophils # 0.1 Nucleated RBCs/100 WBC 1.7 H Platelet Estimate Increased H Hypochromasia Present A Poikilocytosis 1+ A Anisocytosis 1+ A Sodium 133 L Potassium 5.0 Chloride 113 H Carbon Dioxide 16 L BUN 49 H Creatinine 2.22 H Est GFR ( Amer) 28 L Est GFR (Non-Af Amer) 23 L BUN/Creatinine Ratio 22 Glucose 98 POC Glucose 109 H Calculated Osmolality 289 Calcium 8.7 Cultures: Cultures 10/10/18 17:04 Surgical Biopsy Culture - Preliminary Left Foot Proteus mirabilis 10/07/18 18:25 Blood Culture - Final Peripheral Venipuncture No growth. Final report. 10/10/18 17:04 Acid Fast Stain - Final Left Foot 10/10/18 17:04 Fungal Culture - Preliminary Left Foot Culture is incubating. 10/10/18 17:04 Anaerobic Culture - Preliminary Left Foot Culture is incubating. 10/07/18 18:23 Blood Culture - Final Peripheral Venipuncture Strep agalactiae - (Group B) 10/10/18 10:02 Blood Culture - Preliminary Peripheral Venipuncture Culture is incubating and being continuously monitored for growth. Final report to follow. 10/10/18 10:00 Blood Culture - Preliminary Peripheral Venipuncture Culture is incubating and being continuously monitored for growth. Final report to follow. 10/07/18 18:56 Influenza Types A,B Antigen - Final Nasopharyngeal Serology 10/10/18 10/10/18 10/09/18 Range/Units 00:43 00:43 09:30 Urine Color Yellow (Yellow) Urine Clarity Cloudy A (Clear) Urine pH 6.0 (5.0-8.0) pH Units Ur Specific [place] 1.018 (1.010-1.025) Urine Protein >=300 H (Neg-Trace) mg/dL Urine Glucose (UA) Normal (Normal) mg/dL Urine Ketones Negative (Negative) mg/dL Urine Blood Large H (Negative) Urine Nitrite Negative (Negative) Urine Bilirubin Negative (Negative) Urine Urobilinogen Normal (Normal) mg/dL Ur Leukocyte Esterase Moderate H (Negative) Urine Microscopic RBC 5-15 H (0-3) per hpf Urine Microscopic WBC 50-100 H (0-3) per hpf Ur Squamous Epith Cells Many H (None-Few) per lpf Amorphous Sediment Few (Few) Urine Bacteria None Seen (None-Few) per hpf Hyaline Casts None Seen (None-Few) per lpf Ur Culture Indicated? NO. A (NO) Urine Creatinine 86 mg/dL Urine Sodium 33.7 mEq/L A. baumannii (PCR) (Not Detect) Chlamy pneumoniae PCR Not Detected (Not Detect) Adenovirus (PCR) Not Detected (Not Detect) B. pertussis DNA (PCR) Not Detected (Not Detect) B.parapertussis DNA PCR Not Detected (Not Detect) Fina albicans (PCR) (Not Detect) C. glabrata (PCR) (Not Detect) C. krusei (PCR) (Not Detect) C. parapsilosis (PCR) (Not Detect) C. tropicalis (PCR) (Not Detect) Coronavirus OC43 (PCR) Not Detected (Not Detect) Coronavirus HKU1 (PCR) Not Detected (Not Detect) Coronavirus 229E (PCR) Not Detected (Not Detect) Coronavirus NL63 (PCR) Not Detected (Not Detect) Enterobacteriac sp PCR (Not Detect) E. cloacae complex PCR (Not Detect) Enterococcus sp PCR (Not Detect) E. coli (PCR) (Not Detect) H. influenzae (PCR) (Not Detect) Human Metapneumovir PCR Not Detected (Not Detect) Influenza A (H1) PCR Not Detected (Not Detect) Influ A (H1N1/09) PCR Not Detected (Not Detect) Influenza A (H3) PCR Not Detected (Not Detect) Influenza A Untype (PCR) Not Detected (Not Detect) Influenza Type B (PCR) Not Detected (Not Detect) Klebsiella oxytoca PCR (Not Detect) Klebsiella pneumoniae (Not Detect) List. monocytogenes PCR (Not Detect) M.pneumoniae DNA (PCR) Not Detected (Not Detect) N. meningitidis (PCR) (Not Detect) Parainfluenza 1 (PCR) Not Detected (Not Detect) Parainfluenza 2 (PCR) Not Detected (Not Detect) Parainfluenza 3 (PCR) Not Detected (Not Detect) Parainfluenza 4 (PCR) Not Detected (Not Detect) Proteus species (PCR) (Not Detect) RSV (PCR) Not Detected (Not Detect) Entero/Rhino (PCR) Not Detected (Not Detect) Serratia marcescens PCR (Not Detect) Staphylococcus sp PCR (Not Detect) Staph aureus (PCR) (Not Detect) mecA-Methicil Res Gene (Not Detect) Streptococcus sp PCR (Not Detect) Group A Strep DNA (Not Detect) Group B Strep (PCR) (Not Detect) Strep pneumoniae (PCR) (Not Detect) P. aeruginosa (PCR) (Not Detect) Nuvia/B-Vanco Res Genes (Not Detect) KPC (blaKPC) Detect PCR (Not Detect) 10/07/18 10/07/18 Range/Units 21:30 18:23 Urine Color Dark Yellow (Yellow) Urine Clarity Cloudy A (Clear) Urine pH 7.5 (5.0-8.0) pH Units Ur Specific [place] 1.020 (1.010-1.025) Urine Protein >=1000 H (Neg-Trace) mg/dL Urine Glucose (UA) 250 H (Normal) mg/dL Urine Ketones Negative (Negative) mg/dL Urine Blood Large H (Negative) Urine Nitrite Negative (Negative) Urine Bilirubin Small H (Negative) Urine Urobilinogen Normal (Normal) mg/dL Ur Leukocyte Esterase Moderate H (Negative) Urine Microscopic RBC TNTC H (0-3) per hpf Urine Microscopic WBC TNTC H (0-3) per hpf Ur Squamous Epith Cells Many H (None-Few) per lpf Amorphous Sediment (Few) Urine Bacteria Many H (None-Few) per hpf Hyaline Casts Few (None-Few) per lpf Ur Culture Indicated? (NO) Urine Creatinine mg/dL Urine Sodium mEq/L A. baumannii (PCR) Not Detected (Not Detect) Chlamy pneumoniae PCR (Not Detect) Adenovirus (PCR) (Not Detect) B. pertussis DNA (PCR) (Not Detect) B.parapertussis DNA PCR (Not Detect) Fina albicans (PCR) Not Detected (Not Detect) C. glabrata (PCR) Not Detected (Not Detect) C. krusei (PCR) Not Detected (Not Detect) C. parapsilosis (PCR) Not Detected (Not Detect) C. tropicalis (PCR) Not Detected (Not Detect) Coronavirus OC43 (PCR) (Not Detect) Coronavirus HKU1 (PCR) (Not Detect) Coronavirus 229E (PCR) (Not Detect) Coronavirus NL63 (PCR) (Not Detect) Enterobacteriac sp PCR Not Detected (Not Detect) E. cloacae complex PCR Not Detected (Not Detect) Enterococcus sp PCR Not Detected (Not Detect) E. coli (PCR) Not Detected (Not Detect) H. influenzae (PCR) Not Detected (Not Detect) Human Metapneumovir PCR (Not Detect) Influenza A (H1) PCR (Not Detect) Influ A (H1N1/09) PCR (Not Detect) Influenza A (H3) PCR (Not Detect) Influenza A Untype (PCR) (Not Detect) Influenza Type B (PCR) (Not Detect) Klebsiella oxytoca PCR Not Detected (Not Detect) Klebsiella pneumoniae Not Detected (Not Detect) List. monocytogenes PCR Not Detected (Not Detect) M.pneumoniae DNA (PCR) (Not Detect) N. meningitidis (PCR) Not Detected (Not Detect) Parainfluenza 1 (PCR) (Not Detect) Parainfluenza 2 (PCR) (Not Detect) Parainfluenza 3 (PCR) (Not Detect) Parainfluenza 4 (PCR) (Not Detect) Proteus species (PCR) Not Detected (Not Detect) RSV (PCR) (Not Detect) Entero/Rhino (PCR) (Not Detect) Serratia marcescens PCR Not Detected (Not Detect) Staphylococcus sp PCR Not Detected (Not Detect) Staph aureus (PCR) Not Detected (Not Detect) mecA-Methicil Res Gene N/A (Not Detect) Streptococcus sp PCR DETECTED A (Not Detect) Group A Strep DNA Not Detected (Not Detect) Group B Strep (PCR) DETECTED A (Not Detect) Strep pneumoniae (PCR) Not Detected (Not Detect) P. aeruginosa (PCR) Not Detected (Not Detect) Nuvia/B-Vanco Res Genes N/A (Not Detect) KPC (blaKPC) Detect PCR N/A (Not Detect) Exam - Constitutional Vitals: Temp Pulse Resp BP Pulse Ox 97.9 F 56 19 150/82 98 10/13/18 07:57 10/13/18 07:57 10/13/18 07:57 10/13/18 07:57 10/13/18 07:57 General appearance: cooperative, morbidly obese, no acute distress - Head Head exam: Present: atraumatic, normal inspection, normocephalic - Eye Eye exam: Present: EOMI, normal appearance, PERRL Pupils: Present: normal accommodation - ENT ENT exam: Present: mucous membranes moist - Neck Neck exam: Present: normal inspection - Respiratory Respiratory exam: Present: rhonchi (Scattered throughout). Absent: rales, respiratory distress, wheezes - Cardiovascular Cardiovascular exam: Present: RRR, +S1, +S2 - GI/Abdominal GI/Abdominal exam: Present: distended (Obese), normal bowel sounds, soft. Absent: tenderness - Extremities Exam Extremities exam: Present: pedal edema (1+ left lower extremity). Absent: normal inspection (Left lower extremity erythema improved. Disclamation noted. The left foot dressing is clean, dry, and intact. Right BKA stump without abnormality.), tenderness - Neurological Exam Neurological exam: Present: alert, oriented X3, no focal deficits - Psychiatric Psychiatric exam: Present: normal affect, normal mood - Skin Skin exam: Present: dry, intact, normal color, warm Consult Discharge Plan - Plan Referrals: Matteo Love MD [Primary Care Provider] - Prescriptions: cefTRIAXone [Rocephin] 2,000 mg IVPB DAILY 14 Days #14 vial - Attending Attestation I have personally performed a face to face evaluation on this patient. I have reviewed and agree with the care plan. History and Exam by me shows: Patient seen and examined. Agree with Magalys's note. Assessment and plan: Left foot abscess causative organism likely polymicrobial including Proteus mirabilis and group B streptococcus Osteomyelitis of the left calcaneus status post I&D of multiple abscesses 10/10/2018 Recommendations: Discontinue Zosyn Start Rocephin Start metronidazole Monitor labs and for drug toxicity await cultures to finalize duration of treatment likely 6 weeks Need to follow up with ID in 2 weeks cbc, bmp esr crp in 2 weeks
--- NOTE | 2018-10-13 13:58 | Nephrology Consult Note ---
Date of Encounter: 10/13/18 Time of Encounter: 13:30 Assessment and Plan (1) Acute kidney injury superimposed on chronic kidney disease Current Visit: Yes Status: Acute Patient has history of CKD, stage III. Currently in the setting of REMY -Potential etiologies of REMY on CKD are of pre-renal and intrinsic pathologies -Pre-renal etiologies resulting from decreased effective arterial volume or renal vasoconstriction Decreased effective arterial volume-hypovolemia, decreased cardiac contractility from CHF, systemic vasodilation from sepsis -Patient does report decreased intake and decreased urine output over the course of admission -No water intake and minimal fluid intake (24 oz/d) in the form of soda Renal vasoconstriction- ACEi/ARB (patient takes lisinopril in outpatient setting) -Intrinsic etiology is acute tubular necrosis secondary to toxic drug exposure (vancomycin). Likely insult is vancomycin administration in the setting of CKD, stage III Labs/Imaging: -Scr 2.22, BUN 49, GFR 23, BUN/Cr 22 Scr is beginning to show signs of improvement -Na 133, K 5, Cl 113, Ca 8.7 -Retroperitoneal ultrasound- Impression- indeterminate findings upper pole R kidney with cystic area and probable clacification which may be related to the cyst itself or could reflect intrarenal stones. Unremarkable left kidney and urinary bladder. R kidney 11 cm, L kidney 10.7 cm Normal cortical echogenicity, no evidence of hydronephrosis or intrarenal stones on left R upper pole with small cystic area Unremarkable bladder -U/A Protein>300 Large amount of blood Moderate leukocyte esterase U cr 86 U na 33. FeNa 0.7% -Vancomycin trough 24 on 10/09/18 and 16 on 10/12/18 PLAN: -D5 150 mEq NaBicarbonate -Protein/creatinine ratio -Recommend changing vancomycin to a less renally toxic antibiotic Avoid nephrotoxic and renally dose medications -Hold ACEi/ARB -Strict I & O -Diabetic diet -Follow up with outpatient high school foreign language tutor (2) CKD (chronic kidney disease) stage 3, GFR 30-59 ml/min Current Visit: No Status: Chronic Patient has history of CKD, stage III Currently in the setting of REMY Patient follows with Marguerite Shepard in outpatient setting PLAN: -Recommend using less renally toxic antibiotic; avoid nephrotoxics and renally dose medications -Hold ACEi/ARB (3) Hyponatremia Current Visit: No Status: Acute Patient has history of CKD, stage III Hyponatremia is likely hypovolemic hyponatremia with U Na 33.7; potential etiology is renal losses or extrarenal losses, such as decreased PO intake On admission, patient was hyponatremic at 129 Patient has remained hyponatremic over the course of admission Na on AM labs 133 PLAN: -Continue to monitor (4) Anemia Current Visit: Yes Status: Acute Patient has history of anemia of chronic disease. Patient has history of CKD, stage III; likely contributing to anemia REMY on CKD also contributing to anemia Hemoglobin on admission 9.9 Hemoglobin on AM labs today 8.3 Chart review reveals hemoglobin is chronically low between 7-10 PLAN: -Fe studies -B12 -Folate -Recommend transfusion if hemoglobin drops <7 pending decision from primary team Qualifiers: Anemia type: unspecified type Qualified Code(s): D64.9 - Anemia, unspecified (5) Sepsis Current Visit: Yes Status: Acute Per primary team. Patient was tachycardic, tachypneic and with leukocytosis on admission, secondary to R lower lobe pneumonia and L LE cellulitis Qualifiers: Sepsis type: Streptococcus group B Qualified Code(s): A40.1 - Sepsis due to streptococcus, group B (6) Bacteremia Current Visit: Yes Status: Acute Per primary team and ID. (7) Cellulitis of left lower extremity Current Visit: Yes Status: Acute Patient found to have L LE cellulitis on admission Management per primary team, ID and podiatry Avoid nephrotoxic agents and renally dose antibiotics. (8) Pressure ulcer, heel, left, unstageable Current Visit: Yes Status: Acute Per primary team and podiatry. (9) Pneumonia Current Visit: Yes Status: Ruled-out Patient was found to have right lower lobe pneumonia on admission. Management per primary team Qualifiers: Pneumonia type: due to unspecified organism Laterality: right Lung location: lower lobe of lung Qualified Code(s): J18.1 - Lobar pneumonia, unspecified organism (10) Leukocytosis Current Visit: No Status: Acute On admission, patient's WBC was 16.1 On AM labs, WBC is 13.0- improving Management per primary team and ID. Qualifiers: Qualified Code(s): D72.829 - Elevated white blood cell count, unspecified (11) Type 2 diabetes mellitus Current Visit: No Status: Chronic Patient has history of insulin dependent T2DM Presented with chief complaint of elevated blood glucose readings Initial blood glucose onf 2/26 was 204 Blood glucose on AM labs today 93 Management per primary team- continue insulin, sliding scale insulin and diabetic diet. 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 Echo in April 2018 with LVEF of 60% Management per primary team. Qualifiers: Heart failure type: diastolic Heart failure chronicity: acute on chronic Qualified Code(s): I50.33 - Acute on chronic diastolic (congestive) heart failure (13) Hypertension Current Visit: Yes Status: Chronic Patient has history of hypertension Most recent blood pressure 150/79; ranging from 130s-150s SBP Continue home medications Amlodipine 10 mg PO QD Metoprolol 12.5 mg mg PO BID Hold Lisinopril 10 mg PO QD in setting of REMY on CKD Management per primary team. Qualifiers: Hypertension type: essential hypertension Qualified Code(s): I10 - Essential (primary) hypertension (14) CAD (coronary artery disease) Current Visit: Yes Status: Chronic Patient has history of CAD. Continue aspirin, statin, plavix, metoprolol Holding Lisinopril in setting of REMY Management per primary team. Qualifiers: Coronary Disease-Associated Artery/Lesion type: [place] artery [place] vs. transplanted heart: [place] heart Associated angina: without angina Qualified Code(s): I25.10 - Atherosclerotic heart disease of [place] coronary artery without angina pectoris History of Present Illness - Reason for Consult Consult date: 10/13/18 Acute Kidney Injury, Chronic Kidney Disease Requesting physician: Hoa Sanders - Chief Complaint REMY on CKD - History of Present Illness Ms. 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 Patient had ongoing L LE wound receiving ongoing therapy with podiatry, whom she had seen the week prior. Through ED workup, patient was found to have R lower lobe pnuemonia, for which she was admitted.Patient was treated with vancomycin on 10/08 and 10/11 and was taken to the OR with orthopedics on 10/10/18 for I & D of abscess in multiple locations of the L foot. Nephrology was consulted due to REMY on CKD, stage III. Patient reports decreased urine outpatient over the course of admission compared to baseline and constipation; denies dysuria, fever, chills, nausea, vomiting, chest pain, shortness of breath, diarrhea, edema. Patient reports she does not drink water; she drinks 2 16 oz bottles of Mountain Dew per day. Patient cannot call time course of CKD, but states she does follow with Marguerite Shepard in outpatient setting. Past Med Surg Social Fam HX - Past Medical History Medical history: CHF, coronary artery disease, diabetes, GERD, hyperlipidemia, hypertension, peripheral artery disease, renal disease Psychiatric history: depression - Past Surgical History Surgical History: angioplasty/stent, orthopedic, other, other Additional surgical history: right foot surgery, tubal ligation - Social History Smoking Status: Current every day smoker Packs per day: 1 Smokeless Tobacco Status: No Alcohol use: none Drug use: none - Family History Mother Family Member Ethnicity: Non- Living Status: Still Living Hx Family Cardiac Disorders: Yes Hx Family Endocrine Disorder: Yes (type 2 diabetes) Father Family Member Ethnicity: Non- Living Status: Still Living Hx Family Endocrine Disorder: Yes (type 2 diabetes) Medications and Allergies Atorvastatin Calcium [Lipitor] 80 mg PO DAILY 08/21/16 [History] Clopidogrel [Plavix] 75 mg PO DAILY 08/21/16 [History] Ferrous Sulfate 325 mg PO BIDWM 08/21/16 [History] Gabapentin [Neurontin] 300 mg PO BID 08/21/16 [History] Lisinopril [Zestril] 10 mg PO DAILY 08/21/16 [History] Magnesium Oxide [Magnesium] 400 mg PO DAILY 08/21/16 [History] Nitroglycerin [Nitrostat] 0.4 mg SL Q5M PRN 08/21/16 [History] Ranitidine HCl [Acid [employer]ric [employer] Access[employer] Estimator] 150 mg PO BID 08/21/16 [History] Sertraline [Zoloft] 100 mg PO DAILY 08/21/16 [History] Metformin HCl [Glucophage] 1,000 mg PO BID 03/28/17 [History] Sennosides [Senna] 8.6 mg PO DAILY 06/19/17 [History] Insulin Glargine,Hum.rec.anlog [Basaglar Kwikpen U-100] 60 unit SQ QAM 12/30/17 [History] amLODIPine [Norvasc] 10 mg PO DAILY 30 Days #30 tablet 02/07/18 [Rx] Aspirin 81 mg PO DAILY 30 Days #30 tab.chew 04/22/18 [Rx] Docusate Sodium [Colace] 100 mg PO BID PRN #30 capsule 07/01/18 [Rx] Acetaminophen [Extra Strength Non-Aspirin] 500 mg PO Q6H PRN 10/08/18 [History] Insulin LISPRO [Admelog] 15 - 32 units SQ TID 10/08/18 [History] Metoprolol [Lopressor] 12.5 mg PO BID 10/08/18 [History] Allergy/AdvReac Type Severity Reaction Status Date / Time hydromorphone [From Dilaudid] Allergy Palpitation Verified 06/25/18 14:52 s heparin AdvReac See Verified 06/25/18 14:52 Comments Review of Systems Constitutional: no chills, no fatigue, no fever(s), no headache(s) Nose, mouth and throat: no headache(s) Cardiovascular: no chest pain, no dyspnea, no edema Respiratory: no cough Gastrointestinal: constipation, no abdominal pain, no diarrhea Exam - Vital Signs Vital signs: Initial Vital Signs Temp Pulse Resp BP Pulse Ox 98.9 F 94 16 163/82 99 10/07/18 17:45 10/07/18 17:45 10/07/18 17:45 10/07/18 17:45 10/07/18 17:45 Vital Signs - Last 8 Hours Temp Pulse Resp BP Pulse Ox 10/13/18 10:54 97.5 F L 55 20 151/79 99 10/13/18 07:57 97.9 F 56 19 150/82 98 Intake and Output 10/12/18 10/13/18 10/13/18 23:59 07:59 15:59 Intake Total 220 / 220 100 / 100 120 / 120 Output Total 0 / 0 Balance 220 / 220 100 / 100 120 / 120 Intake: IV Fluids 100 / 100 100 / 100 Zosyn 3.375 GM In 0.9 % Sodium 100 / 100 100 / 100 Chloride (Mini-Bag +) 100 ML @ 25 mls/hr IVPB Q8HR [facility] Rx#: [id number] Oral 120 / 120 0 / 0 120 / 120 Output: Urine 0 / 0 Other: Meal Breakfast Percent of Meal Consumed 100% Stool Size Smear # Voids 0 1 # Urine Diapers 2 1 Weight 133 kg Blood Glucose* 109 127 142 Patient Weight 10/13/18 23:59 Weight 133 kg - General Appearance General appearance: well-developed, well-nourished, appears started age, obese EENT: ATNC, mucous membranes dry Neck: supple Respiratory: clear Cardiology: no murmurs, no edema, regular rate, regular rhythm, normal S1, normal S2 Gastrointestinal: normoactive bowel sounds, no tenderness, no guarding, obese Integumentary: warm and dry, erythema (noted overlying left LE ) Neurologic: no focal deficit, alert and oriented x3 Musculoskeletal: deformities (R BKA), erythema, no cyanosis, no clubbing Psychiatric: mood/affect appropriate, cooperative Results - Lab Results 10/13/18 05:06 10/13/18 05:06 Most recent lab results Calcium 8.7 mg/dL (8.6-10.3) 10/13/18 05:06 Urine Creatinine 86 mg/dL 10/10/18 00:43 Urine Sodium 33.7 mEq/L 10/10/18 00:43 Consult Discharge Plan - Plan Referrals: Matteo Love MD [Primary Care Provider] -
--- NOTE | 2018-10-13 15:38 | Podiatry Progress Note ---
Date of Encounter: 10/13/18 Time of Encounter: 12:10 - Assessment and Plan (1) Pressure ulcer, heel, left, unstageable Current Visit: Yes Status: Acute Assessment: -Dressing removed -Serosang drainage noted on dressing -Left posterior ankle and plantar heel wounds with granular tissue. No active bleeding noted. No evidence of necrosis. -Left leg with erythema with superficial abrasions, stable. -Edema 1-2/4 -2/4 PT/DP pulse and cap refill less than 3 seconds -No calf pain with squeeze -WBC 13.0, patient has been afebrile -ESR > 130 -CRP 156 -Patient is a 1 ppd smoker and has no desire to quit -HgbA1c 10.0 -Left ABIs completed results PT 0.84 and DP 0.86 -TCP O2 from yesterday are consistent with healing -MRI with evidence of: 1. Large shallow soft tissue ulceration over the plantar aspect of the heel with diffuse subcutaneous edema compatible with cellulitis. 2 x 1.4 x 1.4 cm complex fluid collection in the subcutaneous fat of the posterolateral aspect of the heel compatible with an abscess. This does not contact the underlying calcaneus. No sinus tract. 2. Very mild bone marrow edema in the posterior inferior aspect of the calcaneus with normal T1 signal. No osseous erosion. This may represent noninfectious reactive osteitis. Early osteomyelitis is considered unlikely. -Fungal and blood cultures are still preliminary -Surgical biopsy is preliminary and reports evidence of proteus mirabilis and St rep agalactiae (Group B) Plan: -Dressing removed and site flushed with .9NS, pat dry, and painted with betadine -Wound vac applied to left calcaneus bridging to lateral aspect of ankle -Wound vac running and no leak noted -No drainage in container -Dressing dry and intact -Plan to change wound vac every Saturday, Saturday, and Saturday -Nursing staff to call for any questions or concerns -ID has evaluated patient, antibiotic recommendations greatly appreciated -Heel medix boots to be worn left heel at all times while in bed -Will continue to monitor (2) Diabetes Current Visit: Yes Status: Acute Assessment: Known history of diabetes patieint reports blood sugar has spiked recently Hgb A1c 10.0 Blood sugar 98 [employer] Peanut butter cups noted at patient's bedside Plan: Spoke with patient about the importance of tight glycemic control and how it aids in the healing process Tight glycemic control per internal medicine Qualifiers: Diabetes mellitus type: type 2 Diabetes mellitus correction insulin use: unspecified intermediate card tender insulin use status Diabetes mellitus complication status: with circulatory complication Diabetes mellitus complication detail: with other circulatory complications Qualified Code(s): E11.59 - Type 2 diabetes mellitus with other circulatory complications (3) Tobacco abuse Current Visit: No Status: Chronic Assessment: Patient reports she has smoked for 40 years She is a 1 ppd smoker Patient reports she does not have a desire to quit Plan: Spoke with patient in regards to her ulcer being exacerbated by smoking and the benefits of stopping Will continue to monitor for desire to quit Recommend smoking cessation information be given to patient Subjective Principal diagnosis: s/p I&D left foot Interval history: Patient alert and oriented x 3. No acute distress noted. She is well nourished. She denies any chest pain, shortness of breath, or calf pain. She denies any recent fever, chills, nausea, or vomiting. Objective - Vital Signs Vital Signs: Vital Signs Temp Pulse Resp BP Pulse Ox 10/13/18 14:13 97.8 F 55 14 136/82 99 10/13/18 10:54 97.5 F L 55 20 151/79 99 10/13/18 07:57 97.9 F 56 19 150/82 98 10/13/18 03:38 97.7 F 54 16 134/70 94 10/12/18 21:04 97.5 F L 57 16 133/78 98 10/12/18 16:58 97.7 F 55 16 130/78 99 Intake and Output 10/12/18 10/13/18 10/13/18 23:59 07:59 15:59 Intake Total 220 / 220 100 / 100 120 / 120 Output Total 0 / 0 100 / 100 Balance 220 / 220 100 / 100 20 / 20 Intake: IV Fluids 100 / 100 100 / 100 Zosyn 3.375 GM In 0.9 % Sodium 100 / 100 100 / 100 Chloride (Mini-Bag +) 100 ML @ 25 mls/hr IVPB Q8HR [facility] Rx#: [id number] Oral 120 / 120 0 / 0 120 / 120 Output: Urine 0 / 0 100 / 100 Other: Meal Breakfast Percent of Meal Consumed 100% Stool Size Smear # Voids 0 1 # Urine Diapers 2 1 Weight 133 kg Blood Glucose* 109 127 142 Patient Weight 10/13/18 23:59 Weight 133 kg - Exam Exam: Constitutional: Alert and oriented x 3, no acute distress noted, well nourished Vascular: 2/4 pulses DP/PT, cap refill less than 3 seconds all digits, 1-2/4 edema, no pain with calf squeeze, Right BKA Neurological: Sensation diminished, absent proprioception Dermatological: left posterior ankle and plantar heel wounds with granular tissue. No active bleeding noted. No evidence of necrosis. Left leg with erythema with superficial abrasions, stable. Musculoskeletal: Movement of toes noted, 4/5 muscle strength, normal tone - Lab Result Diagrams: 10/13/18 05:06 10/13/18 05:06 Labs: Abnormal lab results WBC 13.0 K/mcL (4.3-11.1) H 10/13/18 05:06 RBC 3.30 M/mcL (3.82-4.97) L 10/13/18 05:06 Hgb 8.3 g/dL (11.5-15.4) L 10/13/18 05:06 Hct 28.1 % (35.3-44.9) L 10/13/18 05:06 MCH 25.2 pg (28.0-33.3) L 10/13/18 05:06 MCHC 29.5 g/dL (31.6-35.5) L 10/13/18 05:06 RDW 18.5 % (11.5-14.5) H 10/13/18 05:06 Plt Count 431 K/mcL (140-400) H 10/13/18 05:06 Neutrophils # 9.7 K/mcL (1.6-8.9) H 10/13/18 05:06 Nucleated RBCs/100 WBC 1.7 /100 WBC (0) H 10/13/18 05:06 Platelet Estimate Increased (Normal) H 10/13/18 05:06 Hypochromasia Present (Not Present) A 10/13/18 05:06 Poikilocytosis 1+ (Not Present) A 10/13/18 05:06 Anisocytosis 1+ (Not Present) A 10/13/18 05:06 ESR >= 130 mm/hr (0-15) H 10/07/18 18:23 VBG pCO2 32 mmHg (41-51) L 10/07/18 21:02 VBG pO2 84 mmHg (25-50) H 10/07/18 21:02 VBG HCO3 17 mEq/L (21-27) L 10/07/18 21:02 Sodium 133 mEq/L (136-145) L 10/13/18 05:06 Chloride 113 mEq/L (98-107) H 10/13/18 05:06 Carbon Dioxide 16 mEq/L (23-29) L 10/13/18 05:06 BUN 49 mg/dL (6-20) H 10/13/18 05:06 Creatinine 2.22 mg/dL (0.60-1.20) H 10/13/18 05:06 Est GFR ( Amer) 28 (> 60) L 10/13/18 05:06 Est GFR (Non-Af Amer) 23 (> 60) L 10/13/18 05:06 POC Glucose 109 mg/dL (70-99) H 10/12/18 20:12 Hemoglobin A1c 10.0 % (-5.6) H 10/08/18 05:01 C-Reactive Protein 40 mg/L (Less than 10) H 10/13/18 05:06 Beta-Hydroxybutyric Acd 0.29 mmol/L (0.02-0.27) H 10/07/18 20:51 Urine Clarity Cloudy (Clear) A 10/10/18 00:43 Urine Protein >=300 mg/dL (Neg-Trace) H 10/10/18 00:43 Urine Blood Large (Negative) H 10/10/18 00:43 Ur Leukocyte Esterase Moderate (Negative) H 10/10/18 00:43 Urine Microscopic RBC 5-15 per hpf (0-3) H 10/10/18 00:43 Urine Microscopic WBC 50-100 per hpf (0-3) H 10/10/18 00:43 Ur Squamous Epith Cells Many per lpf (None-Few) H 10/10/18 00:43 Ur Culture Indicated? NO. (NO) A 10/10/18 00:43 Vancomycin Trough 16 mcg/mL (5-10) H 10/12/18 04:05 Streptococcus sp PCR DETECTED (Not Detect) A 10/07/18 18:23 Group B Strep (PCR) DETECTED (Not Detect) A 10/07/18 18:23 Microbiology, Last 48 Hours 10/10/18 17:04 Surgical Biopsy Culture - Preliminary Left Foot Proteus mirabilis Strep agalactiae - (Group B) 10/07/18 18:25 Blood Culture - Final Peripheral Venipuncture No growth. Final report. 10/10/18 17:04 Acid Fast Stain - Final Left Foot 10/10/18 17:04 Fungal Culture - Preliminary Left Foot Culture is incubating. 10/10/18 17:04 Anaerobic Culture - Preliminary Left Foot Culture is incubating. Consult Discharge Plan - Plan [place] [facility] [place]o [place] [Primary Care Provider] -
[2018-10-13] MEDS: cefTRIAXone 2,000 MG in 0.9 % Sodium Chloride Mini Bag 100 ML IVPB SCH (18:15)
[2018-10-13] MEDS: Famotidine 20 MG TABLET PO SCH (21:59)
[2018-10-14 05:02] LABS: Hematocrit 28.3 % (35.3-44.9); Hemoglobin 8.2 g/dL (11.5-15.4); Mean Corpuscular Hemoglobin 24.6 pg (28.0-33.3); Mean Platelet Volume 9.9 fL (9.4-12.4); Nucleated Red Blood Cells 3.7 /100 WBC (0); Platelet Count 456 K/mcL (140-400); Red Blood Count 3.33 M/mcL (3.82-4.97); Red Cell Distribution Width 19.2 % (11.5-14.5)
[2018-10-14 05:15] LABS: Calcium 8.6 mg/dL (8.6-10.3); Potassium 5.2 mEq/L (3.5-5.1)
[2018-10-14 05:31] LABS: Eosinophils # 0.3 K/mcL (0.0-0.6); Lymphocytes # 3.1 K/mcL (0.6-4.6); Neutrophils # 8.5 K/mcL (1.6-8.9)
[2018-10-14 05:32] LABS: Anisocytosis 2+ (Not Present); Hypochromasia Present (Not Present); Platelet Estimate Increased (Normal); Poikilocytosis 1+ (Not Present)
[2018-10-14] MEDS: *HR* Enoxaparin 30 MG/0.3 ML SYRINGE SQ SCH (05:34)
[2018-10-14] MEDS ORDERED: 0.9 % Sodium Chloride 1,000 ML IVC SCH (08:00)
--- NOTE | 2018-10-14 08:56 | Podiatry Progress Note ---
Date of Encounter: 10/14/18 Time of Encounter: 08:40 - Assessment and Plan (1) Pressure ulcer, heel, left, unstageable Current Visit: Yes Status: Acute Assessment: -Dressing left in place, dry and intact, wound vac running and no leak noted -Serosang drainage less than 50cc noted in wound vac container -Edema 1-2/4 -2/4 PT/DP pulse and cap refill less than 3 seconds -No calf pain with squeeze -WBC 12.9, patient has been afebrile -ESR > 130 -CRP 156 -Patient is a 1 ppd smoker and has no desire to quit -HgbA1c 10.0 -Left ABIs completed results PT 0.84 and DP 0.86 -TCP O2 are consistent with healing -MRI with evidence of: 1. Large shallow soft tissue ulceration over the plantar aspect of the heel with diffuse subcutaneous edema compatible with cellulitis. 2 x 1.4 x 1.4 cm complex fluid collection in the subcutaneous fat of the posterolateral aspect of the heel compatible with an abscess. This does not contact the underlying calcaneus. No sinus tract. 2. Very mild bone marrow edema in the posterior inferior aspect of the calcaneus with normal T1 signal. No osseous erosion. This may represent noninfectious reactive osteitis. Early osteomyelitis is considered unlikely. -Fungal and blood cultures are still preliminary -Surgical biopsy is final and shows evidence of proteus mirabilis and Strep agalactiae (Group B) Plan: -Wound vac running, will change dressing tomorrow -Dressing dry and intact -Plan to change wound vac every Saturday, Saturday, and Saturday -Nursing staff to call for any questions or concerns -ID has evaluated patient, antibiotic recommendations greatly appreciated -Heel medix boots to be worn left heel at all times while in bed -NW LLE -Follow up with Dr. 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 insulin use: unspecified mcfp insulin use status Diabetes mellitus complication status: with circulatory complication Diabetes mellitus complication detail: with other circulatory complications Qualified Code(s): E11.59 - Type 2 diabetes mellitus with other circulatory complications (3) Tobacco abuse Current Visit: No Status: Chronic Assessment: Patient reports she has smoked for 40 years She is a 1 ppd smoker Patient reports she does not have a desire to quit Plan: Spoke with patient in regards to her ulcer being exacerbated by smoking and the benefits of stopping Will continue to monitor for desire to quit Recommend smoking cessation information be given to patient Subjective Principal diagnosis: s/p I&D left foot Interval history: Post op day #4 1. Incision and drainage of abscess, multiple locations left foot by Dr. Oneil on 10/10/2018 Patient is resting with eyes closed aroused easily with verbal and tactile stimulation. No acute distress noted. Audible chest congestion noted, patient denies shortness of breath. She is well nourished. She denies any chest pain or calf pain. She denies any recent fever, chills, nausea, vomiting, or diarrhea. Objective - Vital Signs Vital Signs: Vital Signs Temp Pulse Resp BP Pulse Ox 10/14/18 08:33 97.6 F 57 22 162/91 98 10/13/18 14:13 97.8 F 55 14 136/82 99 10/13/18 10:54 97.5 F L 55 20 151/79 99 Intake and Output 10/13/18 10/14/18 10/14/18 23:59 07:59 15:59 Other: Blood Glucose* 249 184 - Exam Exam: Constitutional: Patient sleeping, aroused easily with verbal and tactile stimulation. No acute distress noted, well nourished Vascular: 2/4 pulses DP/PT, cap refill less than 3 seconds all digits, 1-2/4 edema, no pain with calf squeeze, Right BKA Neurological: Sensation diminished, absent proprioception Dermatological: Wound vac dressing dry and intact without evidence of strike through Musculoskeletal: Movement of toes noted, 4/5 muscle strength, normal tone - Lab Result Diagrams: 10/14/18 04:30 10/14/18 04:30 Labs: Abnormal lab results WBC 12.9 K/mcL (4.3-11.1) H 10/14/18 04:30 RBC 3.33 M/mcL (3.82-4.97) L 10/14/18 04:30 Hgb 8.2 g/dL (11.5-15.4) L 10/14/18 04:30 Hct 28.3 % (35.3-44.9) L 10/14/18 04:30 MCH 24.6 pg (28.0-33.3) L 10/14/18 04:30 MCHC 29.0 g/dL (31.6-35.5) L 10/14/18 04:30 RDW 19.2 % (11.5-14.5) H 10/14/18 04:30 Plt Count 456 K/mcL (140-400) H 10/14/18 04:30 Nucleated RBCs/100 WBC 3.7 /100 WBC (0) H 10/14/18 04:30 Platelet Estimate Increased (Normal) H 10/14/18 04:30 Hypochromasia Present (Not Present) A 10/14/18 04:30 Poikilocytosis 1+ (Not Present) A 10/14/18 04:30 Anisocytosis 2+ (Not Present) A 10/14/18 04:30 ESR >= 130 mm/hr (0-15) H 10/07/18 18:23 VBG pCO2 32 mmHg (41-51) L 10/07/18 21:02 VBG pO2 84 mmHg (25-50) H 10/07/18 21:02 VBG HCO3 17 mEq/L (21-27) L 10/07/18 21:02 Sodium 134 mEq/L (136-145) L 10/14/18 04:30 Potassium 5.2 mEq/L (3.5-5.1) H 10/14/18 04:30 Chloride 112 mEq/L (98-107) H 10/14/18 04:30 Carbon Dioxide 15 mEq/L (23-29) L 10/14/18 04:30 BUN 49 mg/dL (6-20) H 10/14/18 04:30 Creatinine 2.03 mg/dL (0.60-1.20) H 10/14/18 04:30 Est GFR ( Amer) 31 (> 60) L 10/14/18 04:30 Est GFR (Non-Af Amer) 26 (> 60) L 10/14/18 04:30 Glucose 170 mg/dL (70-105) H 10/14/18 04:30 POC Glucose 184 mg/dL (70-99) H 10/14/18 08:31 Hemoglobin A1c 10.0 % (-5.6) H 10/08/18 05:01 C-Reactive Protein 40 mg/L (Less than 10) H 10/13/18 05:06 Beta-Hydroxybutyric Acd 0.29 mmol/L (0.02-0.27) H 10/07/18 20:51 Urine Clarity Cloudy (Clear) A 10/10/18 00:43 Urine Protein >=300 mg/dL (Neg-Trace) H 10/10/18 00:43 Urine Blood Large (Negative) H 10/10/18 00:43 Ur Leukocyte Esterase Moderate (Negative) H 10/10/18 00:43 Urine Microscopic RBC 5-15 per hpf (0-3) H 10/10/18 00:43 Urine Microscopic WBC 50-100 per hpf (0-3) H 10/10/18 00:43 Ur Squamous Epith Cells Many per lpf (None-Few) H 10/10/18 00:43 Ur Culture Indicated? NO. (NO) A 10/10/18 00:43 Vancomycin Trough 16 mcg/mL (5-10) H 10/12/18 04:05 Streptococcus sp PCR DETECTED (Not Detect) A 10/07/18 18:23 Group B Strep (PCR) DETECTED (Not Detect) A 10/07/18 18:23 Microbiology, Last 48 Hours 10/10/18 17:04 Surgical Biopsy Culture - Final Left Foot Proteus mirabilis Strep agalactiae - (Group B) 10/07/18 18:25 Blood Culture - Final Peripheral Venipuncture No growth. Final report. 10/10/18 17:04 Acid Fast Stain - Final Left Foot 10/10/18 17:04 Fungal Culture - Preliminary Left Foot Culture is incubating. 10/10/18 17:04 Anaerobic Culture - Preliminary Left Foot Culture is incubating. Consult Discharge Plan - Plan Referrals: Matteo Love MD [Primary Care Provider] - Prescriptions: cefTRIAXone [Rocephin] 2,000 mg IVPB DAILY 14 Days #14 vial
[2018-10-14] MEDS: Gabapentin 300 MG CAPSULE PO SCH ×2 (09:25→21:59)
[2018-10-14] MEDS: Magnesium Oxide 400 MG TABLET PO SCH (09:25)
[2018-10-14] MEDS: Aspirin 81 MG TAB.CHEW PO SCH (09:26)
[2018-10-14] MEDS: Insulin LISPRO 300 UNITS/3 ML VIAL SQ SCH ×4 (09:28→21:59)
[2018-10-14] MEDS ORDERED: Bisacodyl 10 MG RECTAL SUPPOSITORY RC PRN (09:46)
[2018-10-14] MEDS: Insulin DETEMIR 100 UNIT/ML X5UNITS SQ SCH (10:30)
--- NOTE | 2018-10-14 10:50 | Nephrology Progress Note ---
Date of Encounter: 10/14/18 Time of Encounter: 10:50 - Assessment and Plan (1) Acute kidney injury superimposed on chronic kidney disease Current Visit: Yes Status: Acute Patient with multifactorial REMY. Her renal function continues to improve slightly. Will order accurate Is and Os. No indication for dialysis. Renal US reviewed. Will medically manage her hyperkalemia and metabolic acidosis. She is s/p kayexalate and I will change her MIV to sodium bicarbonate. Avoid nephrotoxins. Adjust medications for renal function. Check urinalysis and urine P/C. (2) Hypertension Current Visit: Yes Status: Chronic titrate antihypertensive medications as needed. She will need ANIKA-I or ARB once her renal function is stable. Qualifiers: Hypertension type: essential hypertension Qualified Code(s): I10 - Esse ntial (primary) hypertension (3) Anemia Current Visit: Yes Status: Acute Check iron stores, vitamin b12 and folate. Qualifiers: Anemia type: unspecified type Qualified Code(s): D64.9 - Anemia, unspecified (4) Diabetes Current Visit: Yes Status: Acute Hgb A1C 10. 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 transplanted heart: [place] heart Associated angina: without angina Qualified Code(s): I25.10 - Atherosclerotic heart disease of [place] coronary artery without angina pectoris (6) Morbid obesity Current Visit: Yes Status: Acute (7) Sepsis Current Visit: Yes Status: Acute per ID. Qualifiers: Sepsis type: Streptococcus group B Qualified Code(s): A40.1 - Sepsis due to streptococcus, group B Subjective Principal diagnosis: s/p I&D left foot Interval history: Patient seen. She is sitting in bed eating breakfast. She has no new compla int. Objective - Vital Signs Vital signs: Vital Signs Temp Pulse Resp BP Pulse Ox 10/14/18 08:33 97.6 F 57 22 162/91 98 10/13/18 14:13 97.8 F 55 14 136/82 99 10/13/18 10:54 97.5 F L 55 20 151/79 99 Intake and Output 10/13/18 10/14/18 10/14/18 23:59 07:59 15:59 Other: Blood Glucose* 249 184 - General Appearance General appearance: Present: well-developed, well-nourished, obese EENT: Present: ATNC Neck: Present: supple Cardiology: Present: edema (left leg.) Additional Comments: bradycardic. Gastrointestinal: Present: obese Integumentary: Present: warm and dry Neurologic: Present: alert and oriented x3 Psychiatric: Present: mood/affect appropriate - Lab 10/14/18 04:30 10/14/18 04:30 Most recent lab results Calcium 8.6 mg/dL (8.6-10.3) 10/14/18 04:30 Urine Creatinine 86 mg/dL 10/10/18 00:43 Urine Sodium 33.7 mEq/L 10/10/18 00:43 Consult Discharge Plan - Plan Referrals: Fredrick Oneil DPM [Partnered Physician] - 10/22/18 1:30 pm Magalys Ramos CNP [Advanced Practice Nurse] - 10/28/18 2:25 pm Prescriptions: cefTRIAXone [Rocephin] 2,000 mg IVPB DAILY 14 Days #14 vial
--- NOTE | 2018-10-14 10:50 | Infectious Disease Progress No ---
Date of Encounter: 10/14/18 Time of Encounter: 10:30 - Assessment and Plan (1) Sepsis Current Visit: Yes Status: Acute The patient had two SIRS criteria plus REMY on admission. Likely secondary to left foot wound infection. Improved. WBC stable. Tachycardia resolved. Blood cultures drawn 10/07/18 are positive 1/2 for GBS. Repeat blood cultures drawn 10/10/18 are no growth to date 2 sets. Recommendations: Await blood cultures to finalize. Wound care per the Podiatry team. Continue Rocephin 2 g IV daily. Duration of treatment depends on the clinical picture, but we will likely do a prolonged course of IV antibiotics given that the patient is at high risk for loss of limb if infection progresses and she has already undergone a right AKA. We will follow the patient closely in clinic and base our duration of treatment on how well she does and her inflammatory markers. Monitor renal function and dose-adjust antibiotics. We will need weekly CBC, BUNs/creatinine, ESR, and CRP. Will need weekly IV care per protocol. Follow up with ID 10/28/18 at 1425. Qualifiers: Sepsis type: Streptococcus group B Qualified Code(s): A40.1 - Sepsis due to streptococcus, group B (2) Bacteremia Current Visit: Yes Status: Acute Causative organism: Group B strep. Source: Likely the left foot. Blood cultures drawn 10/07/18 are +1 out of 2 sets for GBS Repeat blood cultures drawn 10/10/18 are NGTD2 sets. Currently on Rocephin. (3) Osteomyelitis Current Visit: No Status: Acute Suspected. Location: Left calcaneus. MRI of the left foot showed findings consistent with cellulitis, abscess, and early osteomyelitis versus reactive osteitis. Given the patient's markedly elevated inflammatory markers (ESR greater than 130, CRP 156) I am highly suspicious that there is an underlying osteomyelitis. Podiatry has been consulted. Status post I&D of multiple abscesses 10/10/18. Intraoperative findings not indicative of osteomyelitis, but given the extent of the infection down to the level of the fascia and the fact that patient is high risk for losing her limb, we will treat this with a course of IV antibiotics. Currently on Rocephin. Qualifiers: Osteomyelitis type: acute hematogenous Osteomyelitis location: foot Laterality: left Qualified Code(s): M86.072 - Acute hematogenous osteomyelitis, left ankle and foot (4) Foot abscess, left Current Visit: Yes Status: Acute Location: Left foot. Causative organism: Proteus mirabilis and group B strep. MRI of the left foot and ankle showed a large shallow soft tissue ulceration of the plantar aspect of the left heel with diffuse subcutaneous edema compatible with cellulitis. There is a 2 x 1.4 x 1.4 cm complex fluid collection in the subcutaneous fat of the posterior lateral aspect of the left heel compatible with an abscess. This does not contact the underlying calcaneus, but there is very mild bone marrow edema in the posterior inferior aspect of the calcaneus with normal T1 signal. No osseous erosion, but this may represent noninfectious reactive osteitis versus early osteomyelitis, although less likely. Podiatry's been consulted.. Status post I&D of multiple abscess 10/10/18. Operative note reviewed. No evidence of osteomyelitis. Currently on Rocephin. (5) Pressure ulcer, heel, left, unstageable Current Visit: Yes Status: Acute Location: Left heel. Ongoing x 1 month. Secondary to moisture-associated skin breakdown. Likely exacerbated by tobacco use, uncontrolled DM, and PAD. Podiatry consulted and following. (6) Chronic venous insufficiency Current Visit: Yes Status: Acute Venous stasis to the LLE vs. cellulitis. Tender and warm to touch, but appears chronic. Recommend compression dressing per previous wound care orders. Management per the Podiatry team. (7) Pneumonia Current Visit: Yes Status: Ruled-out CXR shows central vascular congestion with perihilar edema vs. infiltrate. Moist cough, but no shortness of breath. Respiratory infectious panel negative. PA/Lateral CXR negative for infiltrate. Qualifiers: Pneumonia type: due to unspecified organism Laterality: right Lung location: lower lobe of lung Qualified Code(s): J18.1 - Lobar pneumonia, unspecified organism (8) Acute kidney injury Current Visit: Yes Status: Acute Serum creatinine elevated, but improved. Likely secondary to sepsis and vanc toxicity. Improved. Continue to trend. Dose-adjust antibiotics and avoid nephrotoxins as able. Vancomycin discontinued. Nephrology consulted and following. (9) Hyperglycemia Current Visit: Yes Status: Acute Secondary to poorly controlled DM and infection. HgbA1C 10%. Strict glucose control per the primary team. (10) Hyponatremia Current Visit: No Status: Acute Management per the primary team. (11) Type 2 diabetes mellitus Current Visit: No Status: Chronic Qualifiers: Diabetes mellitus assisted insulin use: with manager intermediate use Diabetes mellitus complication status: with hyperglycemia Qualified Code(s): E11.65 - Type 2 diabetes mellitus with hyperglycemia; Z79.4 - nursing home (current) use of insulin (12) Diabetic neuropathy Current Visit: No Status: Acute Qualifiers: Diabetes mellitus type: type 2 Diabetes mellitus complication detail: diabetic polyneuropathy Qualified Code(s): E11.42 - Type 2 diabetes mellitus with diabetic polyneuropathy (13) Hyperlipidemia Current Visit: No Status: Chronic Qualifiers: Hyperlipidemia type: mixed hyperlipidemia Qualified Code(s): E78.2 - Mixed hyperlipidemia (14) CKD (chronic kidney disease) stage 3, GFR 30-59 ml/min Current Visit: No Status: Chronic (15) Hypertension Current Visit: Yes Status: Chronic Qualifiers: Hypertension type: essential hypertension Qualified Code(s): I10 - Essential (primary) hypertension (16) Chronic diastolic heart failure Current Visit: No Status: Chronic (17) Peripheral arterial disease Current Visit: No Status: Chronic Status post 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 Left lower extremity DESTINY shows findings consistent with mild disease. TCP O2 monitoring consistent with healing Consider vascular to evaluate. (18) Anemia Current Visit: Yes Status: Acute Qualifiers: Anemia type: unspecified type Qualified Code(s): D64.9 - Anemia, unspecified (19) Depression Current Visit: No Status: Chronic Qualifiers: Depression Type: unspecified Qualified Code(s): F32.9 - Major depressive disorder, single episode, unspecified (20) S/P BKA (below knee amputation) Current Visit: No Status: Acute Qualifiers: Laterality: right Qualified Code(s): Z89.511 - Acquired absence of right leg below knee - Subjective Interval history: Patient seen and examined. No acute events noted overnight. Patient states overall she feels well. Denies fevers, chills, or rigors. Denies chest pain or shortness of breath. Reports a moist nonproductive cough that is better today. Denies abdominal pain or urinary complaints. Denies any nausea, vomiting, diarrhea, or constipation. She is unsure when her last bowel movement was, but per nursing documentation she had a BM yesterday. States her appetite is good. She denies any oral thrush any skin lesions. She denies any pain at this time. Infect Dis PN-Objective Data - Labs CBC & Chem 7: 10/14/18 04:30 10/14/18 04:30 Labs: Laboratory Results - last 24 hr 10/13/18 10/14/18 10/14/18 20:58 04:30 04:30 WBC 12.9 H RBC 3.33 L Hgb 8.2 L Hct 28.3 L MCV 85.0 MCH 24.6 L MCHC 29.0 L RDW 19.2 H Plt Count 456 H MPV 9.9 Seg Neutrophils % 64.0 Band Neutrophils % 2.0 Lymphocytes % 24.0 Monocytes % 8.0 Eosinophils % 2.0 Neutrophils # 8.5 Lymphocytes # 3.1 Monocytes # 1.0 Eosinophils # 0.3 Nucleated RBCs/100 WBC 3.7 H Platelet Estimate Increased H Hypochromasia Present A Poikilocytosis 1+ A Anisocytosis 2+ A Sodium 134 L Potassium 5.2 H Chloride 112 H Carbon Dioxide 15 L BUN 49 H Creatinine 2.03 H Est GFR ( Amer) 31 L Est GFR (Non-Af Amer) 26 L BUN/Creatinine Ratio 24 Glucose 170 H POC Glucose 249 H Calculated Osmolality 295 Calcium 8.6 10/14/18 08:31 WBC RBC Hgb Hct MCV MCH MCHC RDW Plt Count MPV Seg Neutrophils % Band Neutrophils % Lymphocytes % Monocytes % Eosinophils % Neutrophils # Lymphocytes # Monocytes # Eosinophils # Nucleated RBCs/100 WBC Platelet Estimate Hypochromasia Poikilocytosis Anisocytosis Sodium Potassium Chloride Carbon Dioxide BUN Creatinine Est GFR ( Amer) Est GFR (Non-Af Amer) BUN/Creatinine Ratio Glucose POC Glucose 184 H Calculated Osmolality Calcium Cultures: Cultures 10/10/18 17:04 Anaerobic Culture - Preliminary Left Foot At this time, no anaerobic growth is present. The culture will be finalized after 5 days of incubation. 10/10/18 17:04 Surgical Biopsy Culture - Final Left Foot Proteus mirabilis Strep agalactiae - (Group B) 10/07/18 18:25 Blood Culture - Final Peripheral Venipuncture No growth. Final report. 10/10/18 17:04 Acid Fast Stain - Final Left Foot 10/10/18 17:04 Fungal Culture - Preliminary Left Foot Culture is incubating. 10/07/18 18:23 Blood Culture - Final Peripheral Venipuncture Strep agalactiae - (Group B) 10/10/18 10:02 Blood Culture - Preliminary Peripheral Venipuncture Culture is incubating and being continuously monito red for growth. Final report to follow. 10/10/18 10:00 Blood Culture - Preliminary Peripheral Venipuncture Culture is incubating and being continuously monitored for growth. Final report to follow. 10/07/18 18:56 Influenza Types A,B Antigen - Final Nasopharyngeal Serology 10/10/18 10/10/18 10/09/18 Range/Units 00:43 00:43 09:30 Urine Color Yellow (Yellow) Urine Clarity Cloudy A (Clear) Urine pH 6.0 (5.0-8.0) pH Units Ur Specific Allen 1.018 (1.010-1.025) Urine Protein >=300 H (Neg-Trace) mg/dL Urine Glucose (UA) Normal (Normal) mg/dL Urine Ketones Negative (Negative) mg/dL Urine Blood Large H (Negative) Urine Nitrite Negative (Negative) Urine Bilirubin Negative (Negative) Urine Urobilinogen Normal (Normal) mg/dL Ur Leukocyte Esterase Moderate H (Negative) Urine Microscopic RBC 5-15 H (0-3) per hpf Urine Microscopic WBC 50-100 H (0-3) per hpf Ur Squamous Epith Cells Many H (None-Few) per lpf Amorphous Sediment Few (Few) Urine Bacteria None Seen (None-Few) per hpf Hyaline Casts None Seen (None-Few) per lpf Ur Culture Indicated? NO. A (NO) Urine Creatinine 86 mg/dL Urine Sodium 33.7 mEq/L A. baumannii (PCR) (Not Detect) Chlamy pneumoniae PCR Not Detected (Not Detect) Adenovirus (PCR) Not Detected (Not Detect) B. pertussis DNA (PCR) Not Detected (Not Detect) B.parapertussis DNA PCR Not Detected (Not Detect) Fina albicans (PCR) (Not Detect) C. glabrata (PCR) (Not Detect) C. krusei (PCR) (Not Detect) C. parapsilosis (PCR) (Not Detect) C. tropicalis (PCR) (Not Detect) Coronavirus OC43 (PCR) Not Detected (Not Detect) Coronavirus HKU1 (PCR) Not Detected (Not Detect) Coronavirus 229E (PCR) Not Detected (Not Detect) Coronavirus NL63 (PCR) Not Detected (Not Detect) Enterobacteriac sp PCR (Not Detect) E. cloacae complex PCR (Not Detect) Enterococcus sp PCR (Not Detect) E. coli (PCR) (Not Detect) H. influenzae (PCR) (Not Detect) Human Metapneumovir PCR Not Detected (Not Detect) Influenza A (H1) PCR Not Detected (Not Detect) Influ A (H1N1/09) PCR Not Detected (Not Detect) Influenza A (H3) PCR Not Detected (Not Detect) Influenza A Untype (PCR) Not Detected (Not Detect) Influenza Type B (PCR) Not Detected (Not Detect) Klebsiella oxytoca PCR (Not Detect) Klebsiella pneumoniae (Not Detect) List. monocytogenes PCR (Not Detect) M.pneumoniae DNA (PCR) Not Detected (Not Detect) N. meningitidis (PCR) (Not Detect) Parainfluenza 1 (PCR) Not Detected (Not Detect) Parainfluenza 2 (PCR) Not Detected (Not Detect) Parainfluenza 3 (PCR) Not Detected (Not Detect) Parainfluenza 4 (PCR) Not Detected (Not Detect) Proteus species (PCR) (Not Detect) RSV (PCR) Not Detected (Not Detect) Entero/Rhino (PCR) Not Detected (Not Detect) Serratia marcescens PCR (Not Detect) Staphylococcus sp PCR (Not Detect) Staph aureus (PCR) (Not Detect) mecA-Methicil Res Gene (Not Detect) Streptococcus sp PCR (Not Detect) Group A Strep DNA (Not Detect) Group B Strep (PCR) (Not Detect) Strep pneumoniae (PCR) (Not Detect) P. aeruginosa (PCR) (Not Detect) Nuvia/B-Vanco Res Genes (Not Detect) KPC (blaKPC) Detect PCR (Not Detect) 10/07/18 10/07/18 Range/Units 21:30 18:23 Urine Color Dark Yellow (Yellow) Urine Clarity Cloudy A (Clear) Urine pH 7.5 (5.0-8.0) pH Units Ur Specific Allen 1.020 (1.010-1.025) Urine Protein >=1000 H (Neg-Trace) mg/dL Urine Glucose (UA) 250 H (Normal) mg/dL Urine Ketones Negative (Negative) mg/dL Urine Blood Large H (Negative) Urine Nitrite Negative (Negative) Urine Bilirubin Small H (Negative) Urine Urobilinogen Normal (Normal) mg/dL Ur Leukocyte Esterase Moderate H (Negative) Urine Microscopic RBC TNTC H (0-3) per hpf Urine Microscopic WBC TNTC H (0-3) per hpf Ur Squamous Epith Cells Many H (None-Few) per lpf Amorphous Sediment (Few) Urine Bacteria Many H (None-Few) per hpf Hyaline Casts Few (None-Few) per lpf Ur Culture Indicated? (NO) Urine Creatinine mg/dL Urine Sodium mEq/L A. baumannii (PCR) Not Detected (Not Detect) Chlamy pneumoniae PCR (Not Detect) Adenovirus (PCR) (Not Detect) B. pertussis DNA (PCR) (Not Detect) B.parapertussis DNA PCR (Not Detect) Fina albicans (PCR) Not Detected (Not Detect) C. glabrata (PCR) Not Detected (Not Detect) C. krusei (PCR) Not Detected (Not Detect) C. parapsilosis (PCR) Not Detected (Not Detect) C. tropicalis (PCR) Not Detected (Not Detect) Coronavirus OC43 (PCR) (Not Detect) Coronavirus HKU1 (PCR) (Not Detect) Coronavirus 229E (PCR) (Not Detect) Coronavirus NL63 (PCR) (Not Detect) Enterobacteriac sp PCR Not Detected (Not Detect) E. cloacae complex PCR Not Detected (Not Detect) Enterococcus sp PCR Not Detected (Not Detect) E. coli (PCR) Not Detected (Not Detect) H. influenzae (PCR) Not Detected (Not Detect) Human Metapneumovir PCR (Not Detect) Influenza A (H1) PCR (Not Detect) Influ A (H1N1/09) PCR (Not Detect) Influenza A (H3) PCR (Not Detect) Influenza A Untype (PCR) (Not Detect) Influenza Type B (PCR) (Not Detect) Klebsiella oxytoca PCR Not Detected (Not Detect) Klebsiella pneumoniae Not Detected (Not Detect) List. monocytogenes PCR Not Detected (Not Detect) M.pneumoniae DNA (PCR) (Not Detect) N. meningitidis (PCR) Not Detected (Not Detect) Parainfluenza 1 (PCR) (Not Detect) Parainfluenza 2 (PCR) (Not Detect) Parainfluenza 3 (PCR) (Not Detect) Parainfluenza 4 (PCR) (Not Detect) Proteus species (PCR) Not Detected (Not Detect) RSV (PCR) (Not Detect) Entero/Rhino (PCR) (Not Detect) Serratia marcescens PCR Not Detected (Not Detect) Staphylococcus sp PCR Not Detected (Not Detect) Staph aureus (PCR) Not Detected (Not Detect) mecA-Methicil Res Gene N/A (Not Detect) Streptococcus sp PCR DETECTED A (Not Detect) Group A Strep DNA Not Detected (Not Detect) Group B Strep (PCR) DETECTED A (Not Detect) Strep pneumoniae (PCR) Not Detected (Not Detect) P. aeruginosa (PCR) Not Detected (Not Detect) Nuvia/B-Vanco Res Genes N/A (Not Detect) KPC (blaKPC) Detect PCR N/A (Not Detect) - Impressions Impressions Chest X-Ray 10/14/18 09:10 IMPRESSION: No acute cardiopulmonary findings. D/ / Rachele Godfrey MD / Rachele Godfrey MD Interpreting Provider: Rachele Godfrey MD Exam - Constitutional Vitals: Temp Pulse Resp BP Pulse Ox 97.6 F 57 22 162/91 98 10/14/18 08:33 10/14/18 08:33 10/14/18 08:33 10/14/18 08:33 10/14/18 08:33 General appearance: cooperative, morbidly obese, no acute distress - Head Head exam: Present: atraumatic, normal inspection, normocephalic - Eye Eye exam: Present: EOMI, normal appearance, PERRL Pupils: Present: normal accommodation - ENT ENT exam: Present: mucous membranes moist - Neck Neck exam: Present: normal inspection - Respiratory Respiratory exam: Present: CTAB, rhonchi (Scattered). Absent: rales, respiratory distress, wheezes - Cardiovascular Cardiovascular exam: Present: RRR, +S1, +S2 - GI/Abdominal GI/Abdominal exam: Present: distended (Obese), normal bowel sounds, soft. Absent: tenderness Additional comments: Purewick catheter noted to be draining clear yellow urine. - Extremities Exam Extremities exam: Present: pedal edema (1+ left lower extremity). Absent: normal inspection (Left foot dressing clean, dry, and intact with heel protector boot in place. Erythema to the left lower leg improved. Desquamation noted. No warmth or tenderness appreciated.), tenderness Additional comments: Right AKA stump without abnormality. - Neurological Exam Neurological exam: Present: alert, oriented X3, no focal deficits - Psychiatric Psychiatric exam: Present: normal affect, normal mood - Skin Skin exam: Present: dry, intact, normal color, warm Consult Discharge Plan - Plan Referrals: Fredrick Oneil DPM [Partnered Physician] - 10/22/18 1:30 pm Magalys Ramos CNP [Advanced Practice Nurse] - 10/28/18 2:25 pm Prescriptions: cefTRIAXone [Rocephin] 2,000 mg IVPB DAILY 14 Days #14 vial
[2018-10-14] MEDS ORDERED: Sodium Bicarbonate 150 MEQ in D5% in Water 1,000 ML IVC SCH (11:30)
--- NOTE | 2018-10-14 13:21 | Internal Med Progress Note ---
<Hoa Sanders M - Last Filed: 10/14/18 14:45> Hospitalist Progress Note - Encounter Date of Encounter: 10/14/18 Time of Encounter: 13:55 - Subjective Interval History: Patient states she is doing well this afternoon. Denies chest pain, shortness of breath, abdominal pain, nausea, headache. Denies left lower extremity pain. Had wound vac placed yesterday. Had hyperkalemia and kayexelate given. However patient is now complaining of constipation and has been given dolcolax. Evaluated by pT/OT who recommend SNF placemen however patient would like to go home with H and home PT. Discharge pending finalization of cultures. - Exam Vitals: Temp Pulse Resp BP Pulse Ox 97.6 F 58 18 134/83 98 10/14/18 12:37 10/14/18 12:37 10/14/18 12:37 10/14/18 12:37 10/14/18 12:37 Exam: General: alert, laying in bed, no acute distress HEENT: atraumatic, normocephalic, oral mucosa moist, normal conjunctiva, no scleral icterus Cardiac: RRR, no murmur or rubs Lungs: CTA bilaterally without wheezing Abdomen: soft, nontender, nondistended MSK: Right BKA. Left lower extremity bandaged in heel medix boot Neuro: Slightly diminished sensation of right toes, however still intact. Able to wiggle toes. AAOx3, CN II-XII intact Psych: appropriate mood and affect Skin: LLE with erythema and dryness and cracking to mid addison. Warm, dry - Assessment and Plan (1) Sepsis Current Visit: Yes Status: Acute Assessment and Plan: Tachypnea, tachycardia, leukocytosis on admission. Tachycardia and tachypnea resolved. Leukocytosis improving, 12.9 today Due to left lower extremity cellulitis, left foot abscess, osteomyelitis(proteus mirabilis and strep agalactiae) and streptococcal bacteremia Influenza negative Surgical biopsy cultures of left foot grew proteus mirabilis and strep agalactiae 08/13 Blood cultures from 10/07 grew strep agalactiae Repeat blood cultures on negative to date On day 2 IV Rocephin Infectious disease following Discharge pending culture finalization. Fungal culture, anaerobic culture pending (2) Cellulitis of left lower extremity Current Visit: Yes Status: Acute Assessment and Plan: Foot x-ray showed soft tissue wound on the left heel without underlying bony abnormality Lower extremity CT showed large soft tissue ulceration measuring 5 cm plantar margin of the calcaneus. MRI: Large shallow soft tissue ulceration of the pelvic per aspect of the heel with diffuse subcutaneous edema and 2 x 1.4 x 1.4 cm complex fluid collection in the subcutaneous fat of the posterior aspect of the heel compatible with an abscess. Very mild bone marrow edema in posterior inferior aspect of calcaneus with no osseous erosion suspicious for noninfectious reactive osteitis versus early osteomyelitis S/p I&D of left foot abscess. Operative culture positive for proteus mirabilis and strep agalactiae Blood cultures on 10/07 08/13 positive for strep agalactiae Repeat blood cultures on 10/10/18 negative Vancomycin and Zosyn switched to Rocephin On day 2 Rocephin 2g IV qd. Will need prolonged IV abx course. F/u with ID in 2 weeks. Appreciate their recommendations (3) Foot abscess, left Current Visit: Yes Status: Acute Assessment and Plan: S/p I&D per Podiatry on 10/10/18 Wound vac placed on 10/13/18 per podiatry Culture positive for proteus mirabilis and group B strep Acid fast stain negative On IV Rocephin, day 2. Will need prolonged course of IV abx F/u ID and podiatry as outpatient (4) Osteomyelitis Current Visit: No Status: Suspected Assessment and Plan: Suspected. MRI as above, findings concerning for early osteomyelitis versus reactive osteitis. Elevated ESR and CRP On Rocephin 2g IV qd. Plan as above with prolonged course of IV abx (5) Pressure ulcer, heel, left, unstageable Current Visit: Yes Status: Acute Assessment and Plan: Left heel pressure ulcer x 1 month Continue plan as above (6) Bacteremia Current Visit: Yes Status: Acute Assessment and Plan: Blood cultures on 10/07 1 + for GBS Repeat cultures on 10/10 remain negative to date Likely source: LLE cellulitis Continue Rocephin as above. ID following (7) Acute kidney injury superimposed on chronic kidney disease Current Visit: Yes Status: Acute Assessment and Plan: Acute on chronic kidney disease stage III Likely due to sepsis, vancomycin and zosyn regimen S/p IVFs with minimal improvement. Stable FENA: 0.6%, prerenal Retroperitoneal ultrasound showed upper pole of R kidney with cyst and calcification likely infrarenal stones Appreciate Nephrology recommendations Kayexalate given for hyperkalemia and maintenaince fluids changed to sodium bicarbonate Urinalysis and urine protein and urine Cr pending. (8) Anemia Current Visit: Yes Status: Acute Assessment and Plan: Anemia of chronic disease with some post op losses Hgb stable Continue to monitor (9) Diabetes Current Visit: Yes Status: Acute Assessment and Plan: Insulin dependent diabetes mellitus Stable Continue current insulin regimen and SSI Continue Diabetic diet (10) Chronic diastolic heart failure Current Visit: No Status: Chronic Assessment and Plan: Echocardiogram on 04/20/2018 showed LVEF of 60% Lisinopril on hold due to REMY (11) Hypertension Current Visit: Yes Status: Chronic Assessment and Plan: Stable Holding lisinopril due to REMY Continue other home meds (12) CAD (coronary artery disease) Current Visit: Yes Status: Chronic Assessment and Plan: Continue with aspirin, statin, Plavix, and metoprolol. Lisinopril held due to REMY (13) Constipation Current Visit: Yes Status: Acute Assessment and Plan: Pateint received kayexalate for hyperkalemia and dolcalax prescribed. Abdomen soft without peritoneal signs, no vomiting (14) Hyperkalemia Current Visit: Yes Status: Acute Assessment and Plan: Potassium 5.2 S/p kayexalate will repeat BMP in am (15) S/P BKA (below knee amputation) Current Visit: No Status: Acute - Time Spent with Patient Total time spent is greater than 50% in coordination of care (as documented) at patient's floor/unit and/or counseling patient: Internal Medicine: Result - Labs CBC & Chem 7: 10/14/18 04:30 10/14/18 04:30 Labs: Short CBC 10/14/18 Range/Units 04:30 WBC 12.9 H (4.3-11.1) K/mcL Hgb 8.2 L (11.5-15.4) g/dL Hct 28.3 L (35.3-44.9) % Plt Count 456 H (140-400) K/mcL Neutrophils # 8.5 (1.6-8.9) K/mcL BMP 10/14/18 04:30 Sodium 134 L Potassium 5.2 H Chloride 112 H Carbon Dioxide 15 L BUN 49 H Creatinine 2.03 H Glucose 170 H Calcium 8.6 - Impressions Impressions Chest X-Ray 10/14/18 09:10 IMPRESSION: No acute cardiopulmonary findings. D/ / Rachele Godfrey MD / Rachele Godfrey MD Interpreting Provider: Rachele Godfrey MD Consult Discharge Plan - Plan Referrals: Fredrick Oneil DPM [Partnered Physician] - 10/22/18 1:30 pm Magalys Ramos CNP [Advanced Practice Nurse] - 10/28/18 2:25 pm Prescriptions: cefTRIAXone [Rocephin] 2,000 mg IVPB DAILY 14 Days #14 vial <Nannettejacquimary aliceZohreh Mitzybeata - Last Filed: 10/14/18 19:28> Hospitalist Progress Note - Encounter Date of Encounter: 10/14/18 - Exam Vitals: Temp Pulse Resp BP Pulse Ox 97.5 F L 55 18 144/67 94 10/14/18 14:55 10/14/18 14:55 10/14/18 14:55 10/14/18 14:55 10/14/18 14:55 - Assessment and Plan (1) Cellulitis of left lower extremity Current Visit: Yes Status: Acute (2) Acute kidney injury Current Visit: Yes Status: Acute (3) Hyponatremia Current Visit: No Status: Acute (4) Chronic venous insufficiency Current Visit: Yes Status: Acute (5) Anemia Current Visit: Yes Status: Acute (6) CAD (coronary artery disease) Current Visit: Yes Status: Chronic (7) Leukocytosis Current Visit: No Status: Acute (8) Pneumonia Current Visit: Yes Status: Ruled-out - Time Spent with Patient Total time spent is greater than 50% in coordination of care (as documented) at patient's floor/unit and/or counseling patient: Internal Medicine: Result - Labs CBC & Chem 7: 10/14/18 04:30 10/14/18 04:30 Labs: Short CBC 10/14/18 Range/Units 04:30 WBC 12.9 H (4.3-11.1) K/mcL Hgb 8.2 L (11.5-15.4) g/dL Hct 28.3 L (35.3-44.9) % Plt Count 456 H (140-400) K/mcL Neutrophils # 8.5 (1.6-8.9) K/mcL BMP 10/14/18 04:30 Sodium 134 L Potassium 5.2 H Chloride 112 H Carbon Dioxide 15 L BUN 49 H Creatinine 2.03 H Glucose 170 H Calcium 8.6 - Impressions Impressions Chest X-Ray 10/14/18 09:10 IMPRESSION: No acute cardiopulmonary findings. D/ / Rachele Godfrey MD / Rachele Godfrey MD Interpreting Provider: Rachele Godfrey MD - Attending Attestation I examined this patient and my medical decision-making was reviewed with the Resident Physician. I agree with the documented findings, disposition and treatment plan as described except to the extent set forth below. <Hoa Sanders - Last Filed: 10/14/18 14:45> (1) Sepsis Qualifiers: Sepsis type: Streptococcus group B Qualified Code(s): A40.1 - Sepsis due to streptococcus, group B (4) Osteomyelitis Qualifiers: Osteomyelitis type: acute hematogenous Osteomyelitis location: foot Laterality: left Qualified Code(s): M86.072 - Acute hematogenous osteomyelitis, left ankle and foot (8) Anemia Qualifiers: Anemia type: unspecified type Qualified Code(s): D64.9 - Anemia, unspecified (9) Diabetes Qualifiers: Diabetes mellitus type: type 2 Diabetes mellitus termite control representative insulin use: unspecified termite control representative insulin use status Diabetes mellitus complication status: with circulatory complication Diabetes mellitus complication detail: with other circulatory complications Qualified Code(s): E11.59 - Type 2 diabetes mellitus with other circulatory complications (11) Hypertension Qualifiers: Hypertension type: essential hypertension Qualified Code(s): I10 - Essential (primary) hypertension (12) CAD (coronary artery disease) Qualifiers: Coronary Disease-Associated Artery/Lesion type: [place] artery [place] vs. transplanted heart: [place] heart Associated angina: without angina Qualified Code(s): I25.10 - Atherosclerotic heart disease of [place] coronary artery without angina pectoris (15) S/P BKA (below knee amputation) Qualifiers: Laterality: right Qualified Code(s): Z89.511 - Acquired absence of right leg below knee <Chang Johnston - Last Filed: 10/14/18 19:28> (5) Anemia Qualifiers: Anemia type: unspecified type Qualified Code(s): D64.9 - Anemia, unspecified (6) CAD (coronary artery disease) Qualifiers: Coronary Disease-Associated Artery/Lesion type: [place] artery [place] vs. transplanted heart: [place] heart Associated angina: without angina Qualified Code(s): I25.10 - Atherosclerotic heart disease of [place] coronary artery without angina pectoris (7) Leukocytosis Qualifiers: Qualified Code(s): D72.829 - Elevated white blood cell count, unspecified (8) Pneumonia Qualifiers: Pneumonia type: due to unspecified organism Laterality: right Lung location: lower lobe of lung Qualified Code(s): J18.1 - Lobar pneumonia, unspecified o rganism
[2018-10-14] MEDS: cefTRIAXone 2,000 MG in 0.9 % Sodium Chloride Mini Bag 100 ML IVPB SCH (16:58)
[2018-10-14] MEDS: Famotidine 20 MG TABLET PO SCH (21:58)
[2018-10-15 04:38] LABS: Hematocrit 28.6 % (35.3-44.9); Hemoglobin 8.4 g/dL (11.5-15.4); Mean Corpuscular HGB Conc 29.4 g/dL (31.6-35.5); Mean Corpuscular Hemoglobin 24.9 pg (28.0-33.3); Mean Corpuscular Volume 84.9 fL (83.0-100.0); Platelet Count 439 K/mcL (140-400); Red Blood Count 3.37 M/mcL (3.82-4.97); Red Cell Distribution Width 19.8 % (11.5-14.5)
[2018-10-15 04:39] LABS: Nucleated Red Blood Cells 5.1 /100 WBC (0)
[2018-10-15 04:48] LABS: Bilirubin,Urine Negative (Negative); Blood,Urine Small (Negative); Clarity,Urine Clear (Clear); Color,Urine Yellow (Yellow); Glucose,Urine (UA) 250 mg/dL (Normal); Ketones,Urine Negative (Negative); Leukocyte Esterase,Urine Negative (Negative); Nitrite,Urine Negative (Negative); Protein,Urine 100 mg/dL (Neg-Trace); Specific Gravity,Urine 1.021 (1.010-1.025); Urobilinogen,Urine Normal (Normal)
[2018-10-15 04:53] LABS: Bacteria,Urine None Seen per hpf (None-Few); Hyaline Casts,Urine None Seen per lpf (None-Few); Squamous Epithelial Cell,Urine Many per lpf (None-Few)
[2018-10-15 04:54] LABS: Calcium 8.5 mg/dL (8.6-10.3); Potassium 4.8 mEq/L (3.5-5.1)
[2018-10-15 05:27] LABS: Protein/Creatinine Ratio,Urine 4.97 mg/mg (0.00-0.20)
[2018-10-15 05:52] LABS: Lymphocytes # 3.6 K/mcL (0.6-4.6); Monocytes # 0.8 K/mcL (0.0-1.3); Neutrophils # 6.1 K/mcL (1.6-8.9)
[2018-10-15] MEDS: *HR* Enoxaparin 30 MG/0.3 ML SYRINGE SQ SCH (06:19)
[2018-10-15] MEDS: Gabapentin 300 MG CAPSULE PO SCH ×2 (08:56→22:20)
[2018-10-15] MEDS: Magnesium Oxide 400 MG TABLET PO SCH (09:00)
[2018-10-15] MEDS: Insulin DETEMIR 100 UNIT/ML X5UNITS SQ SCH (09:01)
[2018-10-15] MEDS: Aspirin 81 MG TAB.CHEW PO SCH (09:01)
[2018-10-15] MEDS: Insulin LISPRO 300 UNITS/3 ML VIAL SQ SCH ×4 (09:01→22:20)
--- NOTE | 2018-10-15 10:00 | Nephrology Progress Note ---
Date of Encounter: 10/15/18 Time of Encounter: 09:00 - Assessment and Plan (1) Acute kidney injury superimposed on chronic kidney disease Current Visit: Yes Status: Acute Patient has history of CKD, stage III. Currently in the setting of REMY. Etiology of REMY is multifactorial. -Potential etiologies of REMY on CKD are of pre-renal and intrinsic pathologies -Pre-renal etiologies resulting from decreased effective arterial volume or renal vasoconstriction Decreased effective arterial volume-hypovolemia, decreased cardiac contractility from CHF, systemic vasodilation from sepsis -Patient does report decreased intake and decreased urine output over the course of admission -No water intake and minimal fluid intake (24 oz/day) in the form of soda Renal vasoconstriction- ACEi/ARB (patient takes lisinopril in outpatient setting) -Intrinsic etiology is acute tubular necrosis secondary to toxic drug exposure (vancomycin). Likely insult is vancomycin administration in the setting of CKD, stage III Labs/Imaging: -Scr 1.93, BUN 42, GFR 27, BUN/Cr 22 Renal function continuing to show signs of improvement. -Na 134, K 4.8 -U/A Protein 100, high Glucose 250, high Small amount of blood U cr 63 Protein/creatinine ratio 4.97, high Urine total protein 313, high -I & O (10/15/18)- intake not recorded, 1350 mL output, 100 mL urine, 1250 mL catheter, 950 mL Purewick -Retroperitoneal ultrasound, impression- indeterminate findings upper pole R kidney with cystic area and probable calcification which may be related to the cyst itself or could reflect intrarenal stones. PLAN: -Avoid nephrotoxic and renally dose medications -Hold ACEi/ARB -Strict I & O -Diabetic diet -Follow up with outpatient nephrology (2) CKD (chronic kidney disease) stage 3, GFR 30-59 ml/min Current Visit: No Status: Chronic Patient has history of CKD, stage III. Currently in the setting of REMY. Patient follows with Marguerite Shepard in outpatient setting PLAN: -Recommend using less renally toxic antibiotic; avoid nephrotoxics and renally dose medications -Hold ACEi/ARB (3) Hyponatremia Current Visit: No Status: Acute Patient has history of CKD, stage III Hyponatremia is likely hypovolemic hyponatremia with U Na 33.7; potential etiology is renal losses or extrarenal losses, such as decreased PO intake On admission, patient was hyponatremic at 129. Patient has remained hyponatremic over the course of admission Na on AM labs 134 PLAN: -Continue to monitor (4) Hyperkalemia Current Visit: Yes Status: Acute Resolved. Potassium elevated at 5.2 on 10/14/18. On AM labs today, K 4.8 Patient received Kayexalate 15 gm on yesterday, 10/14. Patient reports continued constipation with no bowel movement following Kayexalate administration. PLAN: -Continue to monitor (5) Anemia Current Visit: Yes Status: Acute Patient has history of anemia of chronic disease. Patient has history of CKD, stage III; likely contributing to anemia REMY on CKD also contributing to anemia Hemoglobin on AM labs today 8.4; decreased from 9.9 on admission. Chart review reveals hemoglobin is chronically low between 7-10 PLAN: -Fe studies -B12 -Folate -Supplement Fe if low -Recommend transfusion if hemoglobin drops <7 pending decision from primary team Qualifiers: Anemia type: unspecified type Qualified Code(s): D64.9 - Anemia, unspecified (6) Hypertension Current Visit: Yes Status: Chronic Patient has history of hypertension Most recent blood pressure 178/79; ranging from 130s-170s SBP Continue home medications Amlodipine 10 mg PO QD Metoprolol 12.5 mg mg PO BID Hold Lisinopril 10 mg PO QD in setting of REMY on CKD Titrate antihypertensives as needed. Management per primary team. Qualifiers: Hypertension type: essential hypertension Qualified Code(s): I10 - Essential (primary) hypertension (7) Sepsis Current Visit: Yes Status: Acute Per primary team. Patient was tachycardic, tachypneic and with leukocytosis on admission, secondary to R lower lobe pneumonia and L LE cellulitis Qualifiers: Sepsis type: Streptococcus group B Qualified Code(s): A40.1 - Sepsis due to streptococcus, group B (8) Bacteremia Current Visit: Yes Status: Acute Per primary team and ID. (9) Cellulitis of left lower extremity Current Visit: Yes Status: Acute Patient found to have L LE cellulitis on admission Management per primary team, ID and podiatry Avoid nephrotoxic agents and renally dose antibiotics. (10) Pressure ulcer, heel, left, unstageable Current Visit: Yes Status: Acute Per primary team and podiatry. (11) Pneumonia Current Visit: Yes Status: Ruled-out Patient was found to have right lower lobe pneumonia on admission. Management per primary team Qualifiers: Pneumonia type: due to unspecified organism Laterality: right Lung location: lower lobe of lung Qualified Code(s): J18.1 - Lobar pneumonia, unspecified organism (12) Leukocytosis Current Visit: No Status: Acute On admission, patient's WBC was 16.1 On AM labs, WBC is 10.5- improving Management per primary team and ID. Qualifiers: Qualified Code(s): D72.829 - Elevated white blood cell count, unspecified (13) Type 2 diabetes mellitus Current Visit: No Status: Chronic Patient has history of insulin dependent T2DM Presented with chief complaint of elevated blood glucose readings Initial blood glucose onf 10/07 was 204 Blood glucose on AM labs today 220 Management per primary team- continue insulin, sliding scale insulin and diabetic diet. Qualifiers: Diabetes mellitus residential insulin use: with terminal worker use Diabetes mellitus complication status: with hyperglycemia Qualified Code(s): E11.65 - Type 2 diabetes mellitus with hyperglycemia; Z79.4 - FPC (current) use of insulin (14) CHF (congestive heart failure) Current Visit: Yes Status: Acute Patient's history is significant for CHF. Echo in April 2018 with LVEF of 60% Management per primary team. Qualifiers: Heart failure type: diastolic Heart failure chronicity: acute on chronic Qualified Code(s): I50.33 - Acute on chronic diastolic (congestive) heart failure (15) CAD (coronary artery disease) Current Visit: Yes Status: Chronic Patient has history of CAD. Continue aspirin, statin, plavix, metoprolol Holding Lisinopril in setting of REMY Management per primary team. Qualifiers: Coronary Disease-Associated Artery/Lesion type: [place] artery [place] vs. transplanted heart: [place] heart Associated angina: without angina Qualified Code(s): I25.10 - Atherosclerotic heart disease of [place] coronary artery without angina pectoris Subjective Principal diagnosis: s/p I&D left foot Interval history: Ms. 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 Patient had ongoing L LE wound receiving ongoing therapy with podiatry, whom she had seen the week prior. Through ED workup, patient was found to have R lower lobe pnuemonia, for which she was admitted. Patient was treated with vancomycin on 10/08 and 10/11 and was taken to the OR with orthopedics on 10/10/18 for I & D of abscess in multiple locations of the L foot. Nephrology was consulted due to REMY on CKD, stage III. Patient was seen and examined at bedside this morning. She was observed resting comfortably in bed, in no acute distress. Patient reports continued constipation and urinary incontinence; denies dysuria, fever, chills, nausea, vomiting, chest pain, shortness of breath, diarrhea, edema. Objective - Vital Signs Vital signs: Vital Signs Temp Pulse Resp BP Pulse Ox 10/15/18 08:15 97.9 F 56 17 178/79 96 10/15/18 04:44 97.8 F 55 18 169/76 97 10/14/18 23:31 97.6 F 57 15 176/85 98 10/14/18 20:34 97.5 F L 56 15 161/78 100 10/14/18 14:55 97.5 F L 55 18 144/67 94 10/14/18 12:37 97.6 F 58 18 134/83 98 Intake and Output 10/14/18 10/15/18 10/15/18 23:59 07:59 15:59 Intake Total 1250 / 1250 Output Total 0 / 0 300 / 300 1050 / 1050 Balance 1250 / 1250 -300 / -300 -1050 / -1050 Intake: IV Fluids 1250 / 1250 Sodium Bicarbonate 150 MEQ In 1150 / 1150 Dextrose 5% 1,000 ML @ 75 mls/ hr IVC .[id number] NATE Rx#: [id number] Rocephin 2,000 MG In 0.9 % 100 / 100 Sodium Chloride (Mini-Bag +) 100 ML @ 200 mls/hr IVPB Q24H NATE Rx#:[id number] Oral 0 / 0 Output: Urine 0 / 0 100 / 100 Catheter 300 / 300 950 / 950 Purewick 950 / 950 Other: Meal Dinner Percent of Meal Consumed 0% Blood Glucose* 267 204 - General Appearance General appearance: Present: well-developed, well-nourished, appears started age, obese EENT: Present: ATNC, mucous membranes moist, hearing intact Neck: Present: supple Respiratory: Present: course breath sounds Cardiology: Present: no murmurs, regular rate, regular rhythm, normal S1, normal S2 Gastrointestinal: Present: normoactive bowel sounds, no tenderness, no guarding, obese Integumentary: Present: no rash, warm and dry Neurologic: Present: no focal deficit Musculoskeletal: Present: deformities (R BKA ), no cyanosis, no clubbing Psychiatric: Present: mood/affect appropriate, cooperative - Lab 10/15/18 04:00 10/15/18 04:00 Most recent lab results Calcium 8.5 mg/dL (8.6-10.3) L 10/15/18 04:00 Urine Creatinine 63 mg/dL 10/15/18 04:00 Urine Sodium 33.7 mEq/L 10/10/18 00:43 Urine Total Protein 313 mg/dL (1-14) H 10/15/18 04:00 Consult Discharge Plan - Plan Referrals: Fredrick Oneil DPM [Partnered Physician] - 10/22/18 1:30 pm Magalys Ramos CREDIT OFFICE MANAGER [Advanced Practice Nurse] - 10/28/18 2:25 pm Prescriptions: cefTRIAXone [Rocephin] 2,000 mg IVPB DAILY 14 Days #14 vial
--- NOTE | 2018-10-15 10:11 | Infectious Disease Progress No ---
Date of Encounter: 10/15/18 Time of Encounter: 09:50 - Assessment and Plan (1) Sepsis Current Visit: Yes Status: Acute The patient had two SIRS criteria plus REMY on admission. Likely secondary to left foot wound infection. Improved. WBC stable. Tachycardia resolved. Blood cultures drawn 10/07/18 are positive 1/2 for GBS. Repeat blood cultures drawn 10/10/18 are no growth to date 2 sets. Recommendations: Await blood cultures to finalize. Wound care per the Podiatry team. Continue Rocephin 2 g IV daily. Duration of treatment depends on the clinical picture, but we will likely do a prolonged course of IV antibiotics given that the patient is at high risk for loss of limb if infection progresses and she has already undergone a right AKA. We will follow the patient closely in clinic and base our duration of treatment on how well she does and her inflammatory markers. Continue IV antibiotics until evaluated by infectious disease as an outpatient. Monitor renal function and dose-adjust antibiotics. We will need weekly CBC, BUNs/creatinine, ESR, and CRP. Will need weekly IV care per protocol. Follow up with ID 10/28/18 at 1425. Qualifiers: Qualified Code(s): A40.1 - Sepsis due to streptococcus, group B (2) Bacteremia Current Visit: Yes Status: Acute Causative organism: Group B strep. Source: Likely the left foot. Blood cultures drawn 10/07/18 are +1 out of 2 sets for GBS Repeat blood cultures drawn 10/10/18 are NGTD2 sets. Currently on Rocephin. (3) Osteomyelitis Current Visit: No Status: Suspected Suspected. Location: Left calcaneus. MRI of the left foot showed findings consistent with cellulitis, abscess, and early osteomyelitis versus reactive osteitis. Given the patient's markedly elevated inflammatory markers (ESR greater than 130, CRP 156) I am highly suspicious that there is an underlying osteomyelitis. Podiatry has been consulted. Status post I&D of multiple abscesses 10/10/18. Intraoperative findings not indicative of osteomyelitis, but given the extent of the infection down to the level of the fascia and the fact that patient is high risk for losing her limb, we will treat this with a course of IV antibiotics. Currently on Rocephin. Qualifiers: Qualified Code(s): M86.072 - Acute hematogenous osteomyelitis, left ankle and foot (4) Foot abscess, left Current Visit: Yes Status: Acute Location: Left foot. Causative organism: Proteus mirabilis and group B strep. MRI of the left foot and ankle showed a large shallow soft tissue ulceration of the plantar aspect of the left heel with diffuse subcutaneous edema compatible with cellulitis. There is a 2 x 1.4 x 1.4 cm complex fluid collection in the subcutaneous fat of the posterior lateral aspect of the left heel compatible with an abscess. This does not contact the underlying calcaneus, but there is very mild bone marrow edema in the posterior inferior aspect of the calcaneus with normal T1 signal. No osseous erosion, but this may represent noninfectious reactive osteitis versus early osteomyelitis, although less likely. Podiatry's been consulted. Status post I&D of multiple abscess 10/10/18. Operative note reviewed. No evidence of osteomyelitis. Currently on Rocephin. (5) Pressure ulcer, heel, left, unstageable Current Visit: Yes Status: Acute Location: Left heel. Ongoing x 1 month. Secondary to moisture-associated skin breakdown. Likely exacerbated by tobacco use, uncontrolled DM, and PAD. Podiatry consulted and following. (6) Chronic venous insufficiency Current Visit: Yes Status: Acute Venous stasis to the LLE vs. cellulitis. Tender and warm to touch, but appears chronic. Recommend compression dressing per previous wound care orders. Management per the Podiatry team. (7) Pneumonia Current Visit: Yes Status: Ruled-out CXR shows central vascular congestion with perihilar edema vs. infiltrate. Moist cough, but no shortness of breath. Respiratory infectious panel negative. PA/Lateral CXR negative for infiltrate. Qualifiers: Qualified Code(s): J18.1 - Lobar pneumonia, unspecified organism (8) Acute kidney injury Current Visit: Yes Status: Acute Serum creatinine elevated, but improved. Likely secondary to sepsis and vanc toxicity. Improved. Continue to trend. Dose-adjust antibiotics and avoid nephrotoxins as able. Vancomycin discontinued. Nephrology consulted and following. (9) Hyperglycemia Current Visit: Yes Status: Acute Secondary to poorly controlled DM and infection. HgbA1C 10%. Strict glucose control per the primary team. (10) Hyponatremia Current Visit: No Status: Acute Management per the primary team. (11) Type 2 diabetes mellitus Current Visit: No Status: Chronic Qualifiers: Qualified Code(s): E11.65 - Type 2 diabetes mellitus with hyperglycemia; Z79.4 - longterm (current) use of insulin (12) Diabetic neuropathy Current Visit: No Status: Acute Qualifiers: Qualified Code(s): E11.42 - Type 2 diabetes mellitus with diabetic polyneuropathy (13) Hyperlipidemia Current Visit: No Status: Chronic Qualifiers: Qualified Code(s): E78.2 - Mixed hyperlipidemia (14) CKD (chronic kidney disease) stage 3, GFR 30-59 ml/min Current Visit: No Status: Chronic (15) Hypertension Current Visit: Yes Status: Chronic Qualifiers: Qualified Code(s): I10 - Essential (primary) hypertension (16) Chronic diastolic heart failure Current Visit: No Status: Chronic (17) Peripheral arterial disease Current Visit: No Status: Chronic Status post 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 Left lower extremity DESTINY shows findings consistent with mild disease. TCP O2 monitoring consistent with healing Consider vascular to evaluate. (18) Anemia Current Visit: Yes Status: Acute Qualifiers: Qualified Code(s): D64.9 - Anemia, unspecified (19) Depression Current Visit: No Status: Chronic Qualifiers: Qualified Code(s): F32.9 - Major depressive disorder, single episode, unspecified (20) S/P BKA (below knee amputation) Current Visit: No Status: Acute Qualifiers: Qualified Code(s): Z89.511 - Acquired absence of right leg below knee - Subjective Interval history: Patient seen and examined. No acute events noted overnight. Patient states overall she feels well. Denies fevers, chills, or rigors. Denies chest pain or shortness of breath. Reports a moist nonproductive cough that is better today. Denies abdominal pain or urinary complaints. Denies any nausea, vomiting, diarrhea, or constipation. She is unsure when her last bowel movement was, but she states she is unable to defecate on a bedpan and she is unable to get out of bed due to NWB on the LLE. States her appetite is good. She denies any oral thrush any skin lesions. She denies any pain at this time. Infect Dis PN-Objective Data - Labs CBC & Chem 7: 10/15/18 04:00 10/15/18 04:00 Labs: Laboratory Results - last 24 hr 10/13/18 10/13/18 10/13/18 08:02 11:00 17:07 WBC RBC Hgb Hct MCV MCH MCHC RDW Plt Count MPV Seg Neutrophils % Band Neutrophils % Lymphocytes % Monocytes % Neutrophils # Lymphocytes # Monocytes # Nucleated RBCs/100 WBC Sodium Potassium Chloride Carbon Dioxide BUN Creatinine Est GFR ( Amer) Est GFR (Non-Af Amer) BUN/Creatinine Ratio Glucose POC Glucose 127 H 142 H 207 H Calculated Osmolality Calcium Urine Color Urine Clarity Urine pH Ur Specific [place] Urine Protein Urine Glucose (UA) Urine Ketones Urine Blood Urine Nitrite Urine Bilirubin Urine Urobilinogen Ur Leukocyte Esterase Urine Microscopic RBC Urine Microscopic WBC Ur Squamous Epith Cells Urine Bacteria Hyaline Casts Ur Culture Indicated? Urine Creatinine Protein/Creatinin Ratio Urine Total Protein 10/14/18 10/14/18 10/14/18 04:00 12:36 14:54 WBC RBC Hgb Hct MCV MCH MCHC RDW Plt Count MPV Seg Neutrophils % Band Neutrophils % Lymphocytes % Monocytes % Neutrophils # Lymphocytes # Monocytes # Nucleated RBCs/100 WBC Sodium Potassium Chloride Carbon Dioxide BUN Creatinine Est GFR ( Amer) Est GFR (Non-Af Amer) BUN/Creatinine Ratio Glucose POC Glucose 260 H 218 H Calculated Osmolality Calcium Urine Color Yellow Urine Clarity Clear Urine pH 6.0 Ur Specific [place] 1.021 Urine Protein 100 H Urine Glucose (UA) 250 H Urine Ketones Negative Urine Blood Small H Urine Nitrite Negative Urine Bilirubin Negative Urine Urobilinogen Normal Ur Leukocyte Esterase Negative Urine Microscopic RBC 5-15 H Urine Microscopic WBC 3-5 H Ur Squamous Epith Cells Many H Urine Bacteria None Seen Hyaline Casts None Seen Ur Culture Indicated? NO Urine Creatinine Protein/Creatinin Ratio Urine Total Protein 10/15/18 10/15/18 10/15/18 04:00 04:00 04:00 WBC 10.5 RBC 3.37 L Hgb 8.4 L Hct 28.6 L MCV 84.9 MCH 24.9 L MCHC 29.4 L RDW 19.8 H Plt Count 439 H MPV 10.0 Seg Neutrophils % 56.0 Band Neutrophils % 2.0 Lymphocytes % 34.0 Monocytes % 8.0 Neutrophils # 6.1 Lymphocytes # 3.6 Monocytes # 0.8 Nucleated RBCs/100 WBC 5.1 H Sodium 134 L Potassium 4.8 Chloride 107 Carbon Dioxide 19 L BUN 42 H Creatinine 1.93 H Est GFR ( Amer) 33 L Est GFR (Non-Af Amer) 27 L BUN/Creatinine Ratio 22 Glucose 220 H POC Glucose Calculated Osmolality 295 Calcium 8.5 L Urine Color Urine Clarity Urine pH Ur Specific [place] Urine Protein Urine Glucose (UA) Urine Ketones Urine Blood Urine Nitrite Urine Bilirubin Urine Urobilinogen Ur Leukocyte Esterase Urine Microscopic RBC Urine Microscopic WBC Ur Squamous Epith Cells Urine Bacteria Hyaline Casts Ur Culture Indicated? Urine Creatinine 63 Protein/Creatinin Ratio 4.97 H Urine Total Protein 313 H Cultures: Cultures 10/10/18 17:04 Anaerobic Culture - Preliminary Left Foot At this time, no anaerobic growth is present. The culture will be finalized after 5 days of incubation. 10/10/18 17:04 Surgical Biopsy Culture - Final Left Foot Proteus mirabilis Strep agalactiae - (Group B) 10/07/18 18:25 Blood Culture - Final Peripheral Venipuncture No growth. Final report. 10/10/18 17:04 Acid Fast Stain - Final Left Foot 10/10/18 17:04 Fungal Culture - Preliminary Left Foot Culture is incubating. 10/07/18 18:23 Blood Culture - Final Peripheral Venipuncture Strep agalactiae - (Group B) 10/10/18 10:02 Blood Culture - Preliminary Peripheral Venipuncture Culture is incubating and being continuously monitored for growth. Final report to follow. 10/10/18 10:00 Blood Culture - Preliminary Peripheral Venipuncture Culture is incubating and being continuously monitored for growth. Final report to follow. 10/07/18 18:56 Influenza Types A,B Antigen - Final Nasopharyngeal Serology 10/15/18 10/14/18 10/10/18 Range/Units 04:00 04:00 00:43 Urine Color Yellow (Yellow) Urine Clarity Clear (Clear) Urine pH 6.0 (5.0-8.0) pH Units Ur Specific [place] 1.021 (1.010-1.025) Urine Protein 100 H (Neg-Trace) mg/dL Urine Glucose (UA) 250 H (Normal) mg/dL Urine Ketones Negative (Negative) mg/dL Urine Blood Small H (Negative) Urine Nitrite Negative (Negative) Urine Bilirubin Negative (Negative) Urine Urobilinogen Normal (Normal) mg/dL Ur Leukocyte Esterase Negative (Negative) Urine Microscopic RBC 5-15 H (0-3) per hpf Urine Microscopic WBC 3-5 H (0-3) per hpf Ur Squamous Epith Cells Many H (None-Few) per lpf Amorphous Sediment (Few) Urine Bacteria None Seen (None-Few) per hpf Hyaline Casts None Seen (None-Few) per lpf Ur Culture Indicated? NO (NO) Urine Creatinine 63 86 mg/dL Protein/Creatinin Ratio 4.97 H (0.00-0.20) mg/mg Urine Sodium 33.7 mEq/L Urine Total Protein 313 H (1-14) mg/dL A. baumannii (PCR) (Not Detect) Chlamy pneumoniae PCR (Not Detect) Adenovirus (PCR) (Not Detect) B. pertussis DNA (PCR) (Not Detect) B.parapertussis DNA PCR (Not Detect) Fina albicans (PCR) (Not Detect) C. glabrata (PCR) (Not Detect) C. krusei (PCR) (Not Detect) C. parapsilosis (PCR) (Not Detect) C. tropicalis (PCR) (Not Detect) Coronavirus OC43 (PCR) (Not Detect) Coronavirus HKU1 (PCR) (Not Detect) Coronavirus 229E (PCR) (Not Detect) Coronavirus NL63 (PCR) (Not Detect) Enterobacteriac sp PCR (Not Detect) E. cloacae complex PCR (Not Detect) Enterococcus sp PCR (Not Detect) E. coli (PCR) (Not Detect) H. influenzae (PCR) (Not Detect) Human Metapneumovir PCR (Not Detect) Influenza A (H1) PCR (Not Detect) Influ A (H1N1/09) PCR (Not Detect) Influenza A (H3) PCR (Not Detect) Influenza A Untype (PCR) (Not Detect) Influenza Type B (PCR) (Not Detect) Klebsiella oxytoca PCR (Not Detect) Klebsiella pneumoniae (Not Detect) List. monocytogenes PCR (Not Detect) M.pneumoniae DNA (PCR) (Not Detect) N. meningitidis (PCR) (Not Detect) Parainfluenza 1 (PCR) (Not Detect) Parainfluenza 2 (PCR) (Not Detect) Parainfluenza 3 (PCR) (Not Detect) Parainfluenza 4 (PCR) (Not Detect) Proteus species (PCR) (Not Detect) RSV (PCR) (Not Detect) Entero/Rhino (PCR) (Not Detect) Serratia marcescens PCR (Not Detect) Staphylococcus sp PCR (Not Detect) Staph aureus (PCR) (Not Detect) mecA-Methicil Res Gene (Not Detect) Streptococcus sp PCR (Not Detect) Group A Strep DNA (Not Detect) Group B Strep (PCR) (Not Detect) Strep pneumoniae (PCR) (Not Detect) P. aeruginosa (PCR) (Not Detect) Nuvia/B-Vanco Res Genes (Not Detect) KPC (blaKPC) Detect PCR (Not Detect) 10/10/18 10/09/18 10/07/18 Range/Units 00:43 09:30 21:30 Urine Color Yellow Dark Yellow (Yellow) Urine Clarity Cloudy A Cloudy A (Clear) Urine pH 6.0 7.5 (5.0-8.0) pH Units Ur Specific [place] 1.018 1.020 (1.010-1.025) Urine Protein >=300 H >=1000 H (Neg-Trace) mg/dL Urine Glucose (UA) Normal 250 H (Normal) mg/dL Urine Ketones Negative Negative (Negative) mg/dL Urine Blood Large H Large H (Negative) Urine Nitrite Negative Negative (Negative) Urine Bilirubin Negative Small H (Negative) Urine Urobilinogen Normal Normal (Normal) mg/dL Ur Leukocyte Esterase Moderate H Moderate H (Negative) Urine Microscopic RBC 5-15 H TNTC H (0-3) per hpf Urine Microscopic WBC 50-100 H TNTC H (0-3) per hpf Ur Squamous Epith Cells Many H Many H (None-Few) per lpf Amorphous Sediment Few (Few) Urine Bacteria None Seen Many H (None-Few) per hpf Hyaline Casts None Seen Few (None-Few) per lpf Ur Culture Indicated? NO. A (NO) Urine Creatinine mg/dL Protein/Creatinin Ratio (0.00-0.20) mg/mg Urine Sodium mEq/L Urine Total Protein (1-14) mg/dL A. baumannii (PCR) (Not Detect) Chlamy pneumoniae PCR Not Detected (Not Detect) Adenovirus (PCR) Not Detected (Not Detect) B. pertussis DNA (PCR) Not Detected (Not Detect) B.parapertussis DNA PCR Not Detected (Not Detect) Fina albicans (PCR) (Not Detect) C. glabrata (PCR) (Not Detect) C. krusei (PCR) (Not Detect) C. parapsilosis (PCR) (Not Detect) C. tropicalis (PCR) (Not Detect) Coronavirus OC43 (PCR) Not Detected (Not Detect) Coronavirus HKU1 (PCR) Not Detected (Not Detect) Coronavirus 229E (PCR) Not Detected (Not Detect) Coronavirus NL63 (PCR) Not Detected (Not Detect) Enterobacteriac sp PCR (Not Detect) E. cloacae complex PCR (Not Detect) Enterococcus sp PCR (Not Detect) E. coli (PCR) (Not Detect) H. influenzae (PCR) (Not Detect) Human Metapneumovir PCR Not Detected (Not Detect) Influenza A (H1) PCR Not Detected (Not Detect) Influ A (H1N1/09) PCR Not Detected (Not Detect) Influenza A (H3) PCR Not Detected (Not Detect) Influenza A Untype (PCR) Not Detected (Not Detect) Influenza Type B (PCR) Not Detected (Not Detect) Klebsiella oxytoca PCR (Not Detect) Klebsiella pneumoniae (Not Detect) List. monocytogenes PCR (Not Detect) M.pneumoniae DNA (PCR) Not Detected (Not Detect) N. meningitidis (PCR) (Not Detect) Parainfluenza 1 (PCR) Not Detected (Not Detect) Parainfluenza 2 (PCR) Not Detected (Not Detect) Parainfluenza 3 (PCR) Not Detected (Not Detect) Parainfluenza 4 (PCR) Not Detected (Not Detect) Proteus species (PCR) (Not Detect) RSV (PCR) Not Detected (Not Detect) Entero/Rhino (PCR) Not Detected (Not Detect) Serratia marcescens PCR (Not Detect) Staphylococcus sp PCR (Not Detect) Staph aureus (PCR) (Not Detect) mecA-Methicil Res Gene (Not Detect) Streptococcus sp PCR (Not Detect) Group A Strep DNA (Not Detect) Group B Strep (PCR) (Not Detect) Strep pneumoniae (PCR) (Not Detect) P. aeruginosa (PCR) (Not Detect) Nuvia/B-Vanco Res Genes (Not Detect) KPC (blaKPC) Detect PCR (Not Detect) 10/07/18 Range/Units 18:23 Urine Color (Yellow) Urine Clarity (Clear) Urine pH (5.0-8.0) pH Units Ur Specific [place] (1.010-1.025) Urine Protein (Neg-Trace) mg/dL Urine Glucose (UA) (Normal) mg/dL Urine Ketones (Negative) mg/dL Urine Blood (Negative) Urine Nitrite (Negative) Urine Bilirubin (Negative) Urine Urobilinogen (Normal) mg/dL Ur Leukocyte Esterase (Negative) Urine Microscopic RBC (0-3) per hpf Urine Microscopic WBC (0-3) per hpf Ur Squamous Epith Cells (None-Few) per lpf Amorphous Sediment (Few) Urine Bacteria (None-Few) per hpf Hyaline Casts (None-Few) per lpf Ur Culture Indicated? (NO) Urine Creatinine mg/dL Protein/Creatinin Ratio (0.00-0.20) mg/mg Urine Sodium mEq/L Urine Total Protein (1-14) mg/dL A. baumannii (PCR) Not Detected (Not Detect) Chlamy pneumoniae PCR (Not Detect) Adenovirus (PCR) (Not Detect) B. pertussis DNA (PCR) (Not Detect) B.parapertussis DNA PCR (Not Detect) Fina albicans (PCR) Not Detected (Not Detect) C. glabrata (PCR) Not Detected (Not Detect) C. krusei (PCR) Not Detected (Not Detect) C. parapsilosis (PCR) Not Detected (Not Detect) C. tropicalis (PCR) Not Detected (Not Detect) Coronavirus OC43 (PCR) (Not Detect) Coronavirus HKU1 (PCR) (Not Detect) Coronavirus 229E (PCR) (Not Detect) Coronavirus NL63 (PCR) (Not Detect) Enterobacteriac sp PCR Not Detected (Not Detect) E. cloacae complex PCR Not Detected (Not Detect) Enterococcus sp PCR Not Detected (Not Detect) E. coli (PCR) Not Detected (Not Detect) H. influenzae (PCR) Not Detected (Not Detect) Human Metapneumovir PCR (Not Detect) Influenza A (H1) PCR (Not Detect) Influ A (H1N1/09) PCR (Not Detect) Influenza A (H3) PCR (Not Detect) Influenza A Untype (PCR) (Not Detect) Influenza Type B (PCR) (Not Detect) Klebsiella oxytoca PCR Not Detected (Not Detect) Klebsiella pneumoniae Not Detected (Not Detect) List. monocytogenes PCR Not Detected (Not Detect) M.pneumoniae DNA (PCR) (Not Detect) N. meningitidis (PCR) Not Detected (Not Detect) Parainfluenza 1 (PCR) (Not Detect) Parainfluenza 2 (PCR) (Not Detect) Parainfluenza 3 (PCR) (Not Detect) Parainfluenza 4 (PCR) (Not Detect) Proteus species (PCR) Not Detected (Not Detect) RSV (PCR) (Not Detect) Entero/Rhino (PCR) (Not Detect) Serratia marcescens PCR Not Detected (Not Detect) Staphylococcus sp PCR Not Detected (Not Detect) Staph aureus (PCR) Not Detected (Not Detect) mecA-Methicil Res Gene N/A (Not Detect) Streptococcus sp PCR DETECTED A (Not Detect) Group A Strep DNA Not Detected (Not Detect) Group B Strep (PCR) DETECTED A (Not Detect) Strep pneumoniae (PCR) Not Detected (Not Detect) P. aeruginosa (PCR) Not Detected (Not Detect) Nuvia/B-Vanco Res Genes N/A (Not Detect) KPC (blaKPC) Detect PCR N/A (Not Detect) Exam - Constitutional Vitals: Temp Pulse Resp BP Pulse Ox 97.9 F 56 17 178/79 96 10/15/18 08:15 10/15/18 08:15 10/15/18 08:15 10/15/18 08:15 10/15/18 08:15 General appearance: cooperative, morbidly obese, no acute distress - Head Head exam: Present: atraumatic, normal inspection, normocephalic - Eye Eye exam: Present: EOMI, normal appearance, PERRL Pupils: Present: normal accommodation - ENT ENT exam: Present: mucous membranes moist - Neck Neck exam: Present: normal inspection - Respiratory Respiratory exam: Present: CTAB. Absent: rales, respiratory distress, rhonchi, wheezes - Cardiovascular Cardiovascular exam: Present: RRR, +S1, +S2 - GI/Abdominal GI/Abdominal exam: Present: distended (obese), normal bowel sounds, soft. Absent: tenderness - Extremities Exam Extremities exam: Absent: normal inspection (Left foot wound VAC dressing clean, dry, and intact without evidence of leak. Small amount of serous drainage noted. Heel protective boot in place. Right AKA without abnormality.) - Neurological Exam Neurological exam: Present: alert, oriented X3, no focal deficits - Psychiatric Psychiatric exam: Present: normal affect, normal mood - Skin Skin exam: Present: dry, intact, normal color, warm Consult Discharge Plan - Plan Referrals: Fredrick Oneil, DPM [Partnered Physician] - 10/22/18 1:30 pm Magalys Ramos CNP [Advanced Practice Nurse] - 10/28/18 2:25 pm Prescriptions: cefTRIAXone [Rocephin] 2,000 mg IVPB DAILY 14 Days #14 vial
--- NOTE | 2018-10-15 12:36 | Podiatry Progress Note ---
Date of Encounter: 10/15/18 Time of Encounter: 11:30 - Assessment and Plan (1) Pressure ulcer, heel, left, unstageable Current Visit: Yes Status: Acute Assessment: -Wound vac paused and dressing removed -50cc of serosanguineous drainage noted in container -Left plantar heel wound with 50% granular tissue and 50% fibrin tissue, there appears to be some necrotic tissue forming around wound edges. No active bleeding noted. Area around wound macerated with areas of peeling skin noted. No odor, no lymphangitis. Left posterior ankle wound appears with fibrin tissue, wound edges are pink 75% with 25% necrosis noted to wound edge. Left lower leg with erythema, superficial abrasions, and peeling skin, appears stable. -Edema 1-2/4 -2/4 PT/DP pulse and cap refill less than 3 seconds -No calf pain with squeeze -WBC 10.5, patient has been afebrile -ESR > 130 -CRP down to 40 -Patient is a 1 ppd smoker and has no desire to quit -HgbA1c 10.0 -Left ABIs completed results PT 0.84 and DP 0.86 -TCP O2 are consistent with healing -MRI with evidence of: 1. Large shallow soft tissue ulceration over the plantar aspect of the heel with diffuse subcutaneous edema compatible with cellulitis. 2 x 1.4 x 1.4 cm complex fluid collection in the subcutaneous fat of the posterolateral aspect of the heel compatible with an abscess. This does not contact the underlying calcaneus. No sinus tract. 2. Very mild bone marrow edema in the posterior inferior aspect of the calcaneus with normal T1 signal. No osseous erosion. This may represent noninfectious reactive osteitis. Early osteomyelitis is considered unlikely. -Fungal and blood cultures are still preliminary -Surgical biopsy is final and shows evidence of proteus mirabilis and Strep agalactiae (Group B) Plan: -Site flushed with .9NS and pat dry -Painted wounds and macerated tissue around wound with betadine -Macerated tissue covered with 4x4s -Wound vac drape applied and hole cut around left plantar and left ankle wound to allow for foam -Black foam placed left plantar heel wound and left ankle wound and secured with wound vac drape -Wound vac restarted -Wound vac running and no leak noted -No drainage in container at this time -Tubing offloaded from lower extremity using 4x4s, secured with kerlix and ANIKA -Plan to change wound vac every Saturday, Saturday, and Saturday -Nursing staff to call for any questions or concerns -ID has evaluated patient, antibiotic recommendations greatly appreciated -Heel medix boots to be worn left heel at all times while in bed -NWB LLE -Patient is aware of the possibility of [employer] antibiotics, delayed healing, further need for surgery, and loss of limb -Patient aware that her diabetes and her desire to continue to smoke is placing her at higher risk for complications -Follow up with Dr. Oneil in clinic within one week after discharge, please call to make appointment -Will continue to monitor (2) Diabetes Current Visit: Yes Status: Acute Assessment: Known history of diabetes patieint reports blood sugar has spiked recently Hgb A1c 10.0 Blood sugar 220 Plan: Spoke with patient about the importance of tight glycemic control and how it aids in the healing process Tight glycemic control per internal medicine Qualifiers: Diabetes mellitus type: type 2 Diabetes mellitus [employer] insulin use: unspecified [employer] insulin use status Diabetes mellitus complication status: with circulatory complication Diabetes mellitus complication detail: with other circulatory complications Qualified Code(s): E11.59 - Type 2 diabetes mellitus with other circulatory complications (3) Tobacco abuse Current Visit: No Status: Chronic Assessment: Patient reports she has smoked for 40 years She is a 1 ppd smoker Patient reports she does not have a desire to quit Plan: Spoke with patient in regards to her ulcer being exacerbated by smoking and the benefits of stopping Will continue to monitor for desire to quit Recommend smoking cessation information be given to patient Subjective Principal diagnosis: s/p I&D left foot Interval history: Post op day #5 1. Incision and drainage of abscess, multiple locations left foot by Dr. Oneil on 10/10/2018 Patient is alert and oriented x 3. No acute distress noted. She is well nourished. She denies any chest pain, shortness of breath, or calf pain. She denies any recent fever, chills, nausea, vomiting, or diarrhea. Objective - Vital Signs Vital Signs: Vital Signs Temp Pulse Resp BP Pulse Ox 10/15/18 12:09 97.6 F 57 16 167/82 97 10/15/18 08:15 97.9 F 56 17 178/79 96 10/15/18 04:44 97.8 F 55 18 169/76 97 10/14/18 23:31 97.6 F 57 15 176/85 98 10/14/18 20:34 97.5 F L 56 15 161/78 100 10/14/18 14:55 97.5 F L 55 18 144/67 94 10/14/18 12:37 97.6 F 58 18 134/83 98 Intake and Output 10/14/18 10/15/18 10/15/18 23:59 07:59 15:59 Intake Total 1250 / 1250 240 / 240 Output Total 0 / 0 300 / 300 1050 / 1050 Balance 1250 / 1250 -300 / -300 -810 / -810 Intake: IV Fluids 1250 / 1250 Sodium Bicarbonate 150 MEQ In 1150 / 1150 Dextrose 5% 1,000 ML @ 75 mls/ hr IVC .[id number] ON LICENSE OF [facility] Rx#: [id number] Rocephin 2,000 MG In 0.9 % 100 / 100 Sodium Chloride (Mini-Bag +) 100 ML @ 200 mls/hr IVPB Q24H ON LICENSE OF [facility] Rx#:[id number] Oral 0 / 0 240 / 240 Output: Urine 0 / 0 100 / 100 Catheter 300 / 300 950 / 950 Purewick 950 / 950 Other: Meal Dinner Percent of Meal Consumed 0% Blood Glucose* 267 227 - Exam Exam: Constitutional: Alert and oriented x 3, no acute distress noted, well nourished Vascular: 2/4 pulses DP/PT, cap refill less than 3 seconds all digits, 1-2/4 e emerson, no pain with calf squeeze, Right BKA Neurological: Sensation diminished, absent proprioception Dermatological: Left plantar heel wound with 50% granular tissue and 50% fibrin tissue, there appears to be some necrotic tissue forming around wound edges. No active bleeding noted. Area around wound macerated with areas of peeling skin noted. No odor, no lymphangitis. Left posterior ankle wound appears with fibrin tissue, wound edges are pink 75% with 25% necrosis noted to wound edge. Left lower leg with erythema, superficial abrasions, and peeling skin, appears stable. Musculoskeletal: Movement of toes noted, 4/5 muscle strength, normal tone - Lab Result Diagrams: 10/15/18 04:00 10/15/18 04:00 Labs: Abnormal lab results RBC 3.37 M/mcL (3.82-4.97) L 10/15/18 04:00 Hgb 8.4 g/dL (11.5-15.4) L 10/15/18 04:00 Hct 28.6 % (35.3-44.9) L 10/15/18 04:00 MCH 24.9 pg (28.0-33.3) L 10/15/18 04:00 MCHC 29.4 g/dL (31.6-35.5) L 10/15/18 04:00 RDW 19.8 % (11.5-14.5) H 10/15/18 04:00 Plt Count 439 K/mcL (140-400) H 10/15/18 04:00 Nucleated RBCs/100 WBC 5.1 /100 WBC (0) H 10/15/18 04:00 Platelet Estimate Increased (Normal) H 10/14/18 04:30 Hypochromasia Present (Not Present) A 10/14/18 04:30 Poikilocytosis 1+ (Not Present) A 10/14/18 04:30 Anisocytosis 2+ (Not Present) A 10/14/18 04:30 ESR >= 130 mm/hr (0-15) H 10/07/18 18:23 VBG pCO2 32 mmHg (41-51) L 10/07/18 21:02 VBG pO2 84 mmHg (25-50) H 10/07/18 21:02 VBG HCO3 17 mEq/L (21-27) L 10/07/18 21:02 Sodium 134 mEq/L (136-145) L 10/15/18 04:00 Carbon Dioxide 19 mEq/L (23-29) L 10/15/18 04:00 BUN 42 mg/dL (6-20) H 10/15/18 04:00 Creatinine 1.93 mg/dL (0.60-1.20) H 10/15/18 04:00 Est GFR ( Amer) 33 (> 60) L 10/15/18 04:00 Est GFR (Non-Af Amer) 27 (> 60) L 10/15/18 04:00 Glucose 220 mg/dL (70-105) H 10/15/18 04:00 POC Glucose 218 mg/dL (70-99) H 10/14/18 14:54 Hemoglobin A1c 10.0 % (-5.6) H 10/08/18 05:01 Calcium 8.5 mg/dL (8.6-10.3) L 10/15/18 04:00 C-Reactive Protein 40 mg/L (Less than 10) H 10/13/18 05:06 Beta-Hydroxybutyric Acd 0.29 mmol/L (0.02-0.27) H 10/07/18 20:51 Urine Protein 100 mg/dL (Neg-Trace) H 10/14/18 04:00 Urine Glucose (UA) 250 mg/dL (Normal) H 10/14/18 04:00 Urine Blood Small (Negative) H 10/14/18 04:00 Urine Microscopic RBC 5-15 per hpf (0-3) H 10/14/18 04:00 Urine Microscopic WBC 3-5 per hpf (0-3) H 10/14/18 04:00 Ur Squamous Epith Cells Many per lpf (None-Few) H 10/14/18 04:00 Protein/Creatinin Ratio 4.97 mg/mg (0.00-0.20) H 10/15/18 04:00 Urine Total Protein 313 mg/dL (1-14) H 10/15/18 04:00 Vancomycin Trough 16 mcg/mL (5-10) H 10/12/18 04:05 Streptococcus sp PCR DETECTED (Not Detect) A 10/07/18 18:23 Group B Strep (PCR) DETECTED (Not Detect) A 10/07/18 18:23 Microbiology, Last 48 Hours 10/10/18 10:02 Blood Culture - Final Peripheral Venipuncture No growth. Final report. 10/10/18 10:00 Blood Culture - Final Peripheral Venipuncture No growth. Final report. 10/10/18 17:04 Anaerobic Culture - Preliminary Left Foot At this time, no anaerobic growth is present. The culture will be finalized after 5 days of incubation. 10/10/18 17:04 Surgical Biopsy Culture - Final Left Foot Proteus mirabilis Strep agalactiae - (Group B) Consult Discharge Plan - Plan Referrals: Fredrick Oneil DPM [Partnered Physician] - 10/22/18 1:30 pm Magalys Ramos, LOADER ENGINEER [Advanced Practice Nurse] - 10/28/18 2:25 pm Prescriptions: cefTRIAXone [Rocephin] 2,000 mg IVPB DAILY 14 Days #14 vial
[2018-10-15] MEDS ORDERED: Milk and Molasses Enema 200 ML RC ONE (14:34)
--- NOTE | 2018-10-15 15:48 | Internal Med Progress Note ---
<Hoa Sanders - Last Filed: 10/15/18 15:30> Hospitalist Progress Note - Encounter Date of Encounter: 10/15/18 Time of Encounter: 09:45 - Subjective Interval History: No acute events overnight. Patient complaining of constipation. Still passing flatus but still has not had a bowel movement in a few days. Denies chest pain, shortness of breath, abdominal pain, left lower extremity pain. Wound vac to be changed today. - Exam Vitals: Temp Pulse Resp BP Pulse Ox 97.6 F 57 16 167/82 97 10/15/18 12:09 10/15/18 12:09 10/15/18 12:09 10/15/18 12:10/15/18 12:09 Exam: General: alert, laying in bed, no acute distress HEENT: atraumatic, normocephalic, oral mucosa moist, normal conjunctiva, no scleral icterus Cardiac: RRR, no murmur Lungs: CTA bilaterally without wheezing Abdomen: soft, nontender, nondistended MSK: Right BKA. Left lower extremity bandaged. Wound vac in place with heel medix boot. Mild LLE swelling Neuro: AAOx3 Psych: appropriate mood and affect Skin: LLE with erythema and dryness and cracking to mid addison, unchanged. Warm. - Assessment and Plan (1) Sepsis Current Visit: Yes Status: Acute Assessment and Plan: Tachypnea, tachycardia, leukocytosis on admission. Resolved. Due to left lower extremity cellulitis, left foot abscess(proteus mirabilis and strep agalactiae), possible osteomyelitis, and streptococcal bacteremia Surgical biopsy cultures of left foot grew proteus mirabilis and strep agalact iae 08/13 Blood cultures from 10/07 grew strep agalactiae Repeat blood cultures on negative Fungal culture and anaerobic culture negative to date. Final culture pending On day 3 IV Rocephin Infectious disease following. Will follow up on discharge Patient will go home with home health Echocardiogram pending to evaluate for vegetations as patient had gram positive bacteremia (2) Cellulitis of left lower extremity Current Visit: Yes Status: Acute Assessment and Plan: Foot x-ray showed soft tissue wound on the left heel without underlying bony abnormality Lower extremity CT showed large soft tissue ulceration measuring 5 cm plantar margin of the calcaneus. MRI: Large shallow soft tissue ulceration of the pelvic per aspect of the heel with diffuse subcutaneous edema and 2 x 1.4 x 1.4 cm complex fluid collection in the subcutaneous fat of the posterior aspect of the heel compatible with an ab scess. Very mild bone marrow edema in posterior inferior aspect of calcaneus with no osseous erosion suspicious for noninfectious reactive osteitis versus early osteomyelitis S/p I&D of left foot abscess. Operative culture positive for proteus mirabilis and strep agalactiae Blood cultures on 10/07 1 positive for strep agalactiae Repeat blood cultures on 10/10/18 negative Vancomycin and Zosyn switched to Rocephin On day 3 Rocephin 2g IV qd. Will need prolonged IV abx course. Appreciate Infectious ID recommendations (3) Foot abscess, left Current Visit: Yes Status: Acute Assessment and Plan: S/p I&D per Podiatry on 10/10/18 Wound vac placed on 10/13/18 per podiatry, wound vac changed today Final culture positive for proteus mirabilis and group B strep Acid fast stain negative Anaerobic culture and fungal culture negative to date, final pending On IV Rocephin, day 3. Will need prolonged course of IV abx as an outpatient F/u ID and podiatry as outpatient no weight bearing on LLE (4) Osteomyelitis Current Visit: No Status: Suspected Assessment and Plan: Suspected. MRI as above, findings concerning for early osteomyelitis versus reactive osteitis. Elevated ESR and CRP Continue with Rocephin 2g IV qd. Plan as above with prolonged course of IV abx ID and Podiatry following (5) Pressure ulcer, heel, left, unstageable Current Visit: Yes Status: Acute Assessment and Plan: Left heel pressure ulcer x 1 month Continue plan as above (6) Bacteremia Current Visit: Yes Status: Acute Assessment and Plan: Blood cultures on 10/07 1/2 + for GBS Repeat cultures on 10/10 remain negative to date Likely source is LLE cellulitis, abscess, and possible osteomyelitis Continue with Rocephin as above. ID following (7) Acute kidney injury superimposed on chronic kidney disease Current Visit: Yes Status: Acute Assessment and Plan: Acute on chronic kidney disease stage III Likely due to sepsis, vancomycin and zosyn regimen Improving FENA: 0.6%, prerenal Retroperitoneal ultrasound showed upper pole of R kidney with cyst and calcification likely infrarenal stones Continue maintenance IVFs Holding lisinopril. Will resume when REMY resolves Urinalysis with protein and glucose. Urine Cr 63, Protein/Cr ratio 4.97, urine total protein 313 Further management per Nephrology. Appreciate their recommendations (8) Constipation Current Visit: Yes Status: Acute Assessment and Plan: No bowel movement in multiple days Still passing flatus No BM despite kayexalate, dolcolax, colace Will obtain KUB Will give mag citrate (9) Anemia Current Visit: Yes Status: Acute Assessment and Plan: Anemia of chronic disease with some post op losses H/H stable with no active blood loss Monitor (10) Diabetes Current Visit: Yes Status: Acute Assessment and Plan: Insulin dependent diabetes mellitus Stable. Needs tight glycemic control as outpatient Continue with current insulin regimen and SSI Continue Diabetic diet Nutrition recommending oral nutrition supplement Immanuel BID (11) Chronic diastolic heart failure Current Visit: No Status: Chronic Assessment and Plan: Echocardiogram on 04/20/2018 showed LVEF of 60% Repeating echo today to evaluate for vegetations (12) Hypertension Current Visit: Yes Status: Chronic Assessment and Plan: Elevated Norvasc resumed Lisinopril on hold d/t REMY Continue other home meds (13) CAD (coronary artery disease) Current Visit: Yes Status: Chronic Assessment and Plan: Continue with aspirin, statin, Plavix, and metoprolol. Lisinopril held due to REMY (14) Hyperkalemia Current Visit: Yes Status: Resolved Assessment and Plan: S/p kayexelate (15) S/P BKA (below knee amputation) Current Visit: No Status: Acute DVT Prophylaxis: lovenox - Time Spent with Patient Total time spent is greater than 50% in coordination of care (as documented) at patient's floor/unit and/or counseling patient: Internal Medicine: Result - Labs CBC & Chem 7: 10/15/18 04:00 10/15/18 04:00 Labs: Short CBC 10/15/18 Range/Units 04:00 WBC 10.5 (4.3-11.1) K/mcL Hgb 8.4 L (11.5-15.4) g/dL Hct 28.6 L (35.3-44.9) % Plt Count 439 H (140-400) K/mcL Neutrophils # 6.1 (1.6-8.9) K/mcL BMP 10/15/18 04:00 Sodium 134 L Potassium 4.8 Chloride 107 Carbon Dioxide 19 L BUN 42 H Creatinine 1.93 H Glucose 220 H Calcium 8.5 L Urine 10/14/18 Range/Units 04:00 Urine Color Yellow (Yellow) Urine Clarity Clear (Clear) Urine pH 6.0 (5.0-8.0) pH Units Ur Specific [place] 1.021 (1.010-1.025) Urine Protein 100 H (Neg-Trace) mg/dL Urine Glucose (UA) 250 H (Normal) mg/dL Consult Discharge Plan - Plan Referrals: Fredrick Oneil DPM [Partnered Physician] - 10/22/18 1:30 pm Magalys Ramos AUTO SERVICE WRITER [Advanced Practice Nurse] - 10/28/18 2:25 pm Prescriptions: cefTRIAXone [Rocephin] 2,000 mg IVPB DAILY 14 Days #14 vial <Corey Grider - Last Filed: 10/15/18 16:22> Hospitalist Progress Note - Encounter Date of Encounter: 10/15/18 Internal Medicine: Result - Labs CBC & Chem 7: 10/15/18 04:00 10/15/18 04:00 Labs: Short CBC 10/15/18 Range/Units 04:00 WBC 10.5 (4.3-11.1) K/mcL Hgb 8.4 L (11.5-15.4) g/dL Hct 28.6 L (35.3-44.9) % Plt Count 439 H (140-400) K/mcL Neutrophils # 6.1 (1.6-8.9) K/mcL BMP 10/15/18 04:00 Sodium 134 L Potassium 4.8 Chloride 107 Carbon Dioxide 19 L BUN 42 H Creatinine 1.93 H Glucose 220 H Calcium 8.5 L Urine 10/14/18 Range/Units 04:00 Urine Color Yellow (Yellow) Urine Clarity Clear (Clear) Urine pH 6.0 (5.0-8.0) pH Units Ur Specific [place] 1.021 (1.010-1.025) Urine Protein 100 H (Neg-Trace) mg/dL Urine Glucose (UA) 250 H (Normal) mg/dL - Attending Attestation Patient seen and examined independently, including review of objective data including labs. I agree with plan of care as documented above by the resident with the following comments: Jessenia Mccallum is a 53 F w hx DM2, CKD3a, who p/w painful swelling LLE, found to have cellulitis and abscess progressing to osteomyelitis and bacteremia, taken by podiatry to OR for I&D on 10/10 for source control. Wound vac placed on 10/13 to assist healing. Pt on Rocephin 2g daily, will need likely for 6 weeks but has ID follow up in 2 weeks as outpatient. Will check TTE today since pt did have GBS bacteremia, although no clinical evidence for endocarditis. Will discharge home w home health and wound care once insurance approves wound vac and will have podiatry follow up as well; ABIs showing only mild arterial disease of the LLE. <Hoa Sanders - Last Filed: 10/15/18 15:30> (1) Sepsis Qualifiers: Sepsis type: Streptococcus group B Qualified Code(s): A40.1 - Sepsis due to streptococcus, group B (4) Osteomyelitis Qualifiers: Osteomyelitis type: acute hematogenous Osteomyelitis location: foot Laterality: left Qualified Code(s): M86.072 - Acute hematogenous osteomyelitis, left ankle and foot (9) Anemia Qualifiers: Anemia type: unspecified type Qualified Code(s): D64.9 - Anemia, unspecified (10) Diabetes Qualifiers: Diabetes mellitus type: type 2 Diabetes mellitus supervisor long goods insulin use: unsp ecified nursing home insulin use status Diabetes mellitus complication status: with circulatory complication Diabetes mellitus complication detail: with other circulatory complications Qualified Code(s): E11.59 - Type 2 diabetes mellitus with other circulatory complications (12) Hypertension Qualifiers: Hypertension type: essential hypertension Qualified Code(s): I10 - Essential (primary) hypertension (13) CAD (coronary artery disease) Qualifiers: Coronary Disease-Associated Artery/Lesion type: [place] artery [place] vs. transplanted heart: [place] heart Associated angina: without angina Qualified Code(s): I25.10 - Atherosclerotic heart disease of [place] coronary artery without angina pectoris (15) S/P BKA (below knee amputation) Qualifiers: Laterality: right Qualified Code(s): Z89.511 - Acquired absence of right leg below knee
[2018-10-15] MEDS ORDERED: Perflutren Lipid Microsphere 1.3 ML in 0.9 % Sodium Chloride 8.7 ML IVP ONE (17:00)
[2018-10-15] MEDS: cefTRIAXone 2,000 MG in 0.9 % Sodium Chloride Mini Bag 100 ML IVPB SCH (18:34)
[2018-10-15] MEDS: amLODIPine 5 MG TABLET PO SCH (18:34)
[2018-10-15] MEDS: Famotidine 20 MG TABLET PO SCH (22:20)
[2018-10-16] MEDS: *HR* Enoxaparin 30 MG/0.3 ML SYRINGE SQ SCH (05:45)
[2018-10-16 06:52] LABS: Basophils % 0.4 %; Eosinophils # 0.1 K/mcL (0.0-0.6); Hematocrit 31.2 % (35.3-44.9); Hemoglobin 9.2 g/dL (11.5-15.4); Immature Granulocytes % 2.4 % (0-4); Lymphocytes # 1.6 K/mcL (0.6-4.6); Lymphocytes % 15.9 %; Mean Corpuscular HGB Conc 29.5 g/dL (31.6-35.5); Mean Corpuscular Hemoglobin 25.1 pg (28.0-33.3); Monocytes # 1.2 K/mcL (0.0-1.3); Monocytes % 11.5 %; Nucleated Red Blood Cells 2.6 /100 WBC (0); Platelet Count 441 K/mcL (140-400); Red Blood Count 3.67 M/mcL (3.82-4.97); Segmented Neutrophils % 68.8 %
[2018-10-16 07:10] LABS: Calcium 8.9 mg/dL (8.6-10.3); Potassium 5.2 mEq/L (3.5-5.1)
[2018-10-16] MEDS: Gabapentin 300 MG CAPSULE PO SCH ×2 (08:55→21:06)
[2018-10-16] MEDS: Magnesium Oxide 400 MG TABLET PO SCH (08:55)
[2018-10-16] MEDS: amLODIPine 5 MG TABLET PO SCH (08:55)
[2018-10-16] MEDS: Aspirin 81 MG TAB.CHEW PO SCH (08:55)
[2018-10-16] MEDS: Insulin DETEMIR 100 UNIT/ML X5UNITS SQ SCH (09:04)
[2018-10-16] MEDS: Insulin LISPRO 300 UNITS/3 ML VIAL SQ SCH ×4 (09:06→21:06)
--- NOTE | 2018-10-16 10:04 | Podiatry Progress Note ---
Date of Encounter: 10/16/18 Time of Encounter: 07:45 - Assessment and Plan (1) Pressure ulcer, heel, left, unstageable Current Visit: Yes Status: Acute Assessment: -Dressing left in place, dry and intact, wound vac running and no leak noted -Serous drainage less than 50cc noted in wound vac container -Edema 1-2/4, left lower extremity with erythema and peeling skin, multiples abrasions -2/4 PT/DP pulse and cap refill less than 3 seconds -No calf pain with squeeze -WBC 10.1, patient has been afebrile -ESR > 130 -CRP 40 -Patient is a 1 ppd smoker and has no desire to quit -HgbA1c 10.0 -Left ABIs completed results PT 0.84 and DP 0.86 -TCP O2 are consistent with healing -Surgical biopsy is final and shows evidence of proteus mirabilis and Strep a galactiae (Group B) -Blood cultures 08/13: *Blood cultures from 10/07/18 grew strep agalactiae *Blood cultures from 10/10/18 showed no growth -Anaerobic and fungal cultures pending -MRI with evidence of: 1. Large shallow soft tissue ulceration over the plantar aspect of the heel with diffuse subcutaneous edema compatible with cellulitis. 2 x 1.4 x 1.4 cm complex fluid collection in the subcutaneous fat of the posterolateral aspect of the heel compatible with an abscess. This does not contact the underlying calcaneus. No sinus tract. 2. Very mild bone marrow edema in the posterior inferior aspect of the calcaneus with normal T1 signal. No osseous erosion. This may represent noninfectious reactive osteitis. Early osteomyelitis is considered unlikely. Plan: -Wound vac running without leak noted -Dressing dry and intact -Change wound vac every Saturday, Saturday, and Saturday -Nursing staff to call for any questions or concerns -Heel medix boots to be worn left heel at all times while in bed -NWB LLE -Wound stable at this time, Dr. Oneil may need to take patient back at a later date for repeat I&D -Patient aware that she is still at risk for loss of limb and she will need assisted antibiotic therapy -ID monitoring and will continue to follow closely outpatient -Patient aware that her diabetes and desire to continue to smoke places her at a higher risk for complications including but not limited to loss of limb, further surgeries, assisted IV antibiotics -Follow up with Dr. Oneil in clinic within one week after discharge, please call to make appointment (2) Diabetes Current Visit: Yes Status: Acute Assessment: Known history of diabetes patieint reports blood sugar has spiked recently Hgb A1c 10.0 Blood sugar 167 Plan: Spoke with patient about the importance of tight glycemic control and how it aids in the healing process Tight glycemic control per internal medicine Qualifiers: Diabetes mellitus type: type 2 Diabetes mellitus assisted insulin use: unspecified assisted insulin use status Diabetes mellitus complication status: with circulatory complication Diabetes mellitus complication detail: with other circulatory complications Qualified Code(s): E11.59 - Type 2 diabetes mellitus with other circulatory complications (3) Tobacco abuse Current Visit: No Status: Chronic Assessment: Patient reports she has smoked for 40 years She is a 1 ppd smoker Patient reports she does not have a desire to quit Plan: Spoke with patient in regards to her ulcer being exacerbated by smoking and the benefits of stopping Will continue to monitor for desire to quit Recommend smoking cessation information be given to patient Subjective Principal diagnosis: s/p I&D left foot Interval history: Post op day #6 1. Incision and drainage of abscess, multiple locations left foot by Dr. Oneil on 10/10/2018 Patient is alert and oriented x 3. No acute distress noted. She is well nourished. She denies any chest pain, shortness of breath, or calf pain. She denies any recent fever, chills, nausea, vomiting, or diarrhea. Objective - Vital Signs Vital Signs: Vital Signs Temp Pulse Resp BP Pulse Ox 10/16/18 07:09 98.1 F 59 16 165/84 97 10/16/18 04:31 98.2 F 59 18 178/82 97 10/15/18 18:52 97.7 F 57 18 173/90 99 10/15/18 12:09 97.6 F 57 16 167/82 97 Intake and Output 10/15/18 10/16/18 10/16/18 23:59 07:59 15:59 Intake Total 480 / 480 Output Total 450 / 450 Balance 30 / 30 Intake: Oral 480 / 480 Output: Catheter 450 / 450 Other: Meal Dinner Percent of Meal Consumed 50% # Urine Diapers 1 Blood Glucose* 170 155 - Exam Exam: Constitutional: Patient is alert and oriented x 3. No acute distress noted, well nourished Vascular: 2/4 pulses DP/PT, cap refill less than 3 seconds all digits, 1-2/4 edema, no pain with calf squeeze, Right BKA Neurological: Sensation diminished, absent proprioception Dermatological: Wound vac dressing dry and intact without evidence of strike through Musculoskeletal: Movement of toes noted, 4/5 muscle strength, normal tone - Lab Result Diagrams: 10/16/18 05:53 10/16/18 05:53 Labs: Abnormal lab results RBC 3.67 M/mcL (3.82-4.97) L 10/16/18 05:53 Hgb 9.2 g/dL (11.5-15.4) L 10/16/18 05:53 Hct 31.2 % (35.3-44.9) L 10/16/18 05:53 MCH 25.1 pg (28.0-33.3) L 10/16/18 05:53 MCHC 29.5 g/dL (31.6-35.5) L 10/16/18 05:53 RDW 21.0 % (11.5-14.5) H 10/16/18 05:53 Plt Count 441 K/mcL (140-400) H 10/16/18 05:53 Nucleated RBCs/100 WBC 2.6 /100 WBC (0) H 10/16/18 05:53 Platelet Estimate Increased (Normal) H 10/14/18 04:30 Hypochromasia Present (Not Present) A 10/14/18 04:30 Poikilocytosis 1+ (Not Present) A 10/14/18 04:30 Anisocytosis 2+ (Not Present) A 10/14/18 04:30 ESR >= 130 mm/hr (0-15) H 10/07/18 18:23 VBG pCO2 32 mmHg (41-51) L 10/07/18 21:02 VBG pO2 84 mmHg (25-50) H 10/07/18 21:02 VBG HCO3 17 mEq/L (21-27) L 10/07/18 21:02 Potassium 5.2 mEq/L (3.5-5.1) H 10/16/18 05:53 Carbon Dioxide 20 mEq/L (23-29) L 10/16/18 05:53 BUN 42 mg/dL (6-20) H 10/16/18 05:53 Creatinine 1.75 mg/dL (0.60-1.20) H 10/16/18 05:53 Est GFR ( Amer) 37 (> 60) L 10/16/18 05:53 Est GFR (Non-Af Amer) 30 (> 60) L 10/16/18 05:53 Glucose 167 mg/dL (70-105) H 10/16/18 05:53 POC Glucose 190 mg/dL (70-99) H 10/15/18 17:23 Hemoglobin A1c 10.0 % (-5.6) H 10/08/18 05:01 C-Reactive Protein 40 mg/L (Less than 10) H 10/13/18 05:06 Beta-Hydroxybutyric Acd 0.29 mmol/L (0.02-0.27) H 10/07/18 20:51 Urine Protein 100 mg/dL (Neg-Trace) H 10/14/18 04:00 Urine Glucose (UA) 250 mg/dL (Normal) H 10/14/18 04:00 Urine Blood Small (Negative) H 10/14/18 04:00 Urine Microscopic RBC 5-15 per hpf (0-3) H 10/14/18 04:00 Urine Microscopic WBC 3-5 per hpf (0-3) H 10/14/18 04:00 Ur Squamous Epith Cells Many per lpf (None-Few) H 10/14/18 04:00 Protein/Creatinin Ratio 4.97 mg/mg (0.00-0.20) H 10/15/18 04:00 Urine Total Protein 313 mg/dL (1-14) H 10/15/18 04:00 Vancomycin Trough 16 mcg/mL (5-10) H 10/12/18 04:05 Streptococcus sp PCR DETECTED (Not Detect) A 10/07/18 18:23 Group B Strep (PCR) DETECTED (Not Detect) A 10/07/18 18:23 Microbiology, Last 48 Hours 10/10/18 10:02 Blood Culture - Final Peripheral Venipuncture No growth. Final report. 10/10/18 10:00 Blood Culture - Final Peripheral Venipuncture No growth. Final report. 10/10/18 17:04 Anaerobic Culture - Preliminary Left Foot At this time, no anaerobic growth is present. The culture will be finalized after 5 days of incubation. 10/10/18 17:04 Surgical Biopsy Culture - Final Left Foot Proteus mirabilis Strep agalactiae - (Group B) Consult Discharge Plan - Plan Referrals: Fredrick Oneil DPM [Partnered Physician] - 10/22/18 1:30 pm Magalys Ramos, REGISTERED DIETICIAN [Advanced Practice Nurse] - 10/28/18 2:25 pm Prescriptions: cefTRIAXone [Rocephin] 2,000 mg IVPB DAILY 14 Days #14 vial
--- NOTE | 2018-10-16 10:19 | Infectious Disease Progress No ---
Date of Encounter: 10/16/18 Time of Encounter: 09:00 - Assessment and Plan (1) Sepsis Current Visit: Yes Status: Acute The patient had two SIRS criteria plus REMY on admission. Likely secondary to left foot wound infection. Improved. WBC stable. Tachycardia resolved. Blood cultures drawn 10/07/18 are positive 1/2 for GBS. Repeat blood cultures drawn 10/10/18 are negative 2 sets. Recommendations: Wound care per the Podiatry team. Continue Rocephin 2 g IV daily. Duration of treatment depends on the clinical picture, but we will likely do a prolonged course of IV antibiotics given that the patient is at high risk for loss of limb if infection progresses and she has already undergone a right AKA. We will follow the patient closely in clinic and base our duration of treatment on how well she does and her inflammatory markers. Continue IV antibiotics until evaluated by infectious disease as an outpatient. Monitor renal function and dose-adjust antibiotics. We will need weekly CBC, BUNs/creatinine, ESR, and CRP. Will need weekly IV care per protocol. Follow up with ID 10/28/18 at 1425. Qualifiers: Sepsis type: Streptococcus group B Qualified Code(s): A40.1 - Sepsis due to streptococcus, group B (2) Bacteremia Current Visit: Yes Status: Acute Causative organism: Group B strep. Source: Likely the left foot. Blood cultures drawn 10/07/18 are +1 out of 2 sets for GBS Repeat blood cultures drawn 10/10/18 are negative 2 sets. Currently on Rocephin. (3) Osteomyelitis Current Visit: Yes Status: Suspected Suspected. Location: Left calcaneus. MRI of the left foot showed findings consistent with cellulitis, abscess, and early osteomyelitis versus reactive osteitis. Given the patient's markedly elevated inflammatory markers (ESR greater than 130, CRP 156) I am highly suspicious that there is an underlying osteomyelitis. Podiatry has been consulted. Status post I&D of multiple abscesses 10/10/18. Intraoperative findings not indicative of osteomyelitis, but given the extent of the infection down to the level of the fascia and the fact that patient is high risk for losing her limb, we will treat this with a course of IV antibiotics. Currently on Rocephin. Qualifiers: Osteomyelitis type: acute hematogenous Osteomyelitis location: foot Laterality: left Qualified Code(s): M86.072 - Acute hematogenous osteomyelitis, left ankle and foot (4) Foot abscess, left Current Visit: Yes Status: Acute Location: Left foot. Causative organism: Proteus mirabilis and group B strep. MRI of the left foot and ankle showed a large shallow soft tissue ulceration of the plantar aspect of the left heel with diffuse subcutaneous edema compatible with cellulitis. There is a 2 x 1.4 x 1.4 cm complex fluid collection in the subcutaneous fat of the posterior lateral aspect of the left heel compatible with an abscess. This does not contact the underlying calcaneus, but there is very mild bone marrow edema in the posterior inferior aspect of the calcaneus with normal T1 signal. No osseous erosion, but this may represent noninfectious reactive osteitis versus early osteomyelitis, although less likely. Podiatry's been consulted. Status post I&D of multiple abscess 10/10/18. Operative note reviewed. No evidence of osteomyelitis. Currently on Rocephin. (5) Pressure ulcer, heel, left, unstageable Current Visit: Yes Status: Acute Location: Left heel. Ongoing x 1 month. Secondary to moisture-associated skin breakdown. Likely exacerbated by tobacco use, uncontrolled DM, and PAD. Podiatry consulted and following. (6) Chronic venous insufficiency Current Visit: Yes Status: Acute Venous stasis to the LLE vs. cellulitis. Tender and warm to touch, but appears chronic. Recommend compression dressing per previous wound care orders. Management per the Podiatry team. (7) Pneumonia Current Visit: Yes Status: Ruled-out CXR shows central vascular congestion with perihilar edema vs. infiltrate. Moist cough, but no shortness of breath. Respiratory infectious panel negative. PA/Lateral CXR negative for infiltrate. Qualifiers: Pneumonia type: due to unspecified organism Laterality: right Lung location: lower lobe of lung Qualified Code(s): J18.1 - Lobar pneumonia, unspecified organism (8) Acute kidney injury Current Visit: Yes Status: Acute Serum creatinine elevated, but improved. Likely secondary to sepsis and vanc toxicity. Improved. Continue to trend. Dose-adjust antibiotics and avoid nephrotoxins as able. Vancomycin discontinued. Nephrology consulted and following. (9) Hyperglycemia Current Visit: Yes Status: Acute Secondary to poorly controlled DM and infection. HgbA1C 10%. Strict glucose control per the primary team. (10) Hyponatremia Current Visit: No Status: Acute Management per the primary team. 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 (12) Diabetic neuropathy Current Visit: No Status: Acute Qualifiers: Diabetes mellitus type: type 2 Diabetes mellitus complication detail: diabetic polyneuropathy Qualified Code(s): E11.42 - Type 2 diabetes mellitus with diabetic polyneuropathy (13) Hyperlipidemia Current Visit: No Status: Chronic Qualifiers: Hyperlipidemia type: mixed hyperlipidemia Qualified Code(s): E78.2 - Mixed hyperlipidemia (14) CKD (chronic kidney disease) stage 3, GFR 30-59 ml/min Current Visit: No Status: Chronic (15) Hypertension Current Visit: Yes Status: Chronic Qualifiers: Hypertension type: essential hypertension Qualified Code(s): I10 - Essential (primary) hypertension (16) Chronic diastolic heart failure Current Visit: No Status: Chronic (17) Peripheral arterial disease Current Visit: No Status: Chronic Status post 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 Left lower extremity DESTINY shows findings consistent with mild disease. TCP O2 monitoring consistent with healing Consider vascular to evaluate. (18) Anemia Current Visit: Yes Status: Acute Qualifiers: Anemia type: unspecified type Qualified Code(s): D64.9 - Anemia, unspecified (19) Depression Current Visit: No Status: Chronic Qualifiers: Depression Type: unspecified Qualified Code(s): F32.9 - Major depressive disorder, single episode, unspecified (20) S/P BKA (below knee amputation) Current Visit: No Status: Acute Qualifiers: Laterality: right Qualified Code(s): Z89.511 - Acquired absence of right leg below knee - Subjective Interval history: Patient seen and examined. No acute events noted overnight. Patient states overall she feels well. Denies fevers, chills, or rigors. Denies chest pain or shortness of breath. Reports a moist nonproductive cough that is better today. Denies abdominal pain or urinary complaints. Denies any nausea, vomiting, diarrhea, or constipation. Last BM yesterday. States her appetite is good. She denies any oral thrush any skin lesions. She denies any pain at this time. Infect Dis PN-Objective Data - Labs CBC & Chem 7: 10/17/18 09:32 10/16/18 12:22 Labs: Laboratory Results - last 24 hr 10/14/18 10/15/18 10/15/18 20:37 08:26 17:23 WBC RBC Hgb Hct MCV MCH MCHC RDW Plt Count MPV Immature Gran % Seg Neutrophils % Lymphocytes % Monocytes % Eosinophils % Basophils % Neutrophils # Lymphocytes # Monocytes # Eosinophils # Basophils # Nucleated RBCs/100 WBC Sodium Potassium Chloride Carbon Dioxide BUN Creatinine Est GFR ( Amer) Est GFR (Non-Af Amer) BUN/Creatinine Ratio Glucose POC Glucose 267 H 204 H 190 H Calculated Osmolality Calcium 10/16/18 10/16/18 05:53 05:53 WBC 10.1 RBC 3.67 L Hgb 9.2 L Hct 31.2 L MCV 85.0 MCH 25.1 L MCHC 29.5 L RDW 21.0 H Plt Count 441 H MPV 10.0 Immature Gran % 2.4 Seg Neutrophils % 68.8 Lymphocytes % 15.9 Monocytes % 11.5 Eosinophils % 1.0 Basophils % 0.4 Neutrophils # 7.0 Lymphocytes # 1.6 Monocytes # 1.2 Eosinophils # 0.1 Basophils # 0.0 Nucleated RBCs/100 WBC 2.6 H Sodium 136 Potassium 5.2 H Chloride 107 Carbon Dioxide 20 L BUN 42 H Creatinine 1.75 H Est GFR ( Amer) 37 L Est GFR (Non-Af Amer) 30 L BUN/Creatinine Ratio 24 Glucose 167 H POC Glucose Calculated Osmolality 296 Calcium 8.9 Cultures: Cultures 10/10/18 10:02 Blood Culture - Final Peripheral Venipuncture No growth. Final report. 10/10/18 10:00 Blood Culture - Final Peripheral Venipuncture No growth. Final report. 10/10/18 17:04 Anaerobic Culture - Preliminary Left Foot At this time, no anaerobic growth is present. The culture will be finalized after 5 days of incubation. 10/10/18 17:04 Surgical Biopsy Culture - Final Left Foot Proteus mirabilis Strep agalactiae - (Group B) 10/07/18 18:25 Blood Culture - Final Peripheral Venipuncture No growth. Final report. 10/10/18 17:04 Acid Fast Stain - Final Left Foot 10/10/18 17:04 Fungal Culture - Preliminary Left Foot Culture is incubating. 02/26/19 18:23 Blood Culture - Final Peripheral Venipuncture Strep agalactiae - (Group B) 10/07/18 18:56 Influenza Types A,B Antigen - Final Nasopharyngeal Serology 10/15/18 10/14/18 10/10/18 Range/Units 04:00 04:00 00:43 Urine Color Yellow (Yellow) Urine Clarity Clear (Clear) Urine pH 6.0 (5.0-8.0) pH Units Ur Specific [place] 1.021 (1.010-1.025) Urine Protein 100 H (Neg-Trace) mg/dL Urine Glucose (UA) 250 H (Normal) mg/dL Urine Ketones Negative (Negative) mg/dL Urine Blood Small H (Negative) Urine Nitrite Negative (Negative) Urine Bilirubin Negative (Negative) Urine Urobilinogen Normal (Normal) mg/dL Ur Leukocyte Esterase Negative (Negative) Urine Microscopic RBC 5-15 H (0-3) per hpf Urine Microscopic WBC 3-5 H (0-3) per hpf Ur Squamous Epith Cells Many H (None-Few) per lpf Amorphous Sediment (Few) Urine Bacteria None Seen (None-Few) per hpf Hyaline Casts None Seen (None-Few) per lpf Ur Culture Indicated? NO (NO) Urine Creatinine 63 86 mg/dL Protein/Creatinin Ratio 4.97 H (0.00-0.20) mg/mg Urine Sodium 33.7 mEq/L Urine Total Protein 313 H (1-14) mg/dL A. baumannii (PCR) (Not Detect) Chlamy pneumoniae PCR (Not Detect) Adenovirus (PCR) (Not Detect) B. pertussis DNA (PCR) (Not Detect) B.parapertussis DNA PCR (Not Detect) Fina albicans (PCR) (Not Detect) C. glabrata (PCR) (Not Detect) C. krusei (PCR) (Not Detect) C. parapsilosis (PCR) (Not Detect) C. tropicalis (PCR) (Not Detect) Coronavirus OC43 (PCR) (Not Detect) Coronavirus HKU1 (PCR) (Not Detect) Coronavirus 229E (PCR) (Not Detect) Coronavirus NL63 (PCR) (Not Detect) Enterobacteriac sp PCR (Not Detect) E. cloacae complex PCR (Not Detect) Enterococcus sp PCR (Not Detect) E. coli (PCR) (Not Detect) H. influenzae (PCR) (Not Detect) Human Metapneumovir PCR (Not Detect) Influenza A (H1) PCR (Not Detect) Influ A (H1N1/09) PCR (Not Detect) Influenza A (H3) PCR (Not Detect) Influenza A Untype (PCR) (Not Detect) Influenza Type B (PCR) (Not Detect) Klebsiella oxytoca PCR (Not Detect) Klebsiella pneumoniae (Not Detect) List. monocytogenes PCR (Not Detect) M.pneumoniae DNA (PCR) (Not Detect) N. meningitidis (PCR) (Not Detect) Parainfluenza 1 (PCR) (Not Detect) Parainfluenza 2 (PCR) (Not Detect) Parainfluenza 3 (PCR) (Not Detect) Parainfluenza 4 (PCR) (Not Detect) Proteus species (PCR) (Not Detect) RSV (PCR) (Not Detect) Entero/Rhino (PCR) (Not Detect) Serratia marcescens PCR (Not Detect) Staphylococcus sp PCR (Not Detect) Staph aureus (PCR) (Not Detect) mecA-Methicil Res Gene (Not Detect) Streptococcus sp PCR (Not Detect) Group A Strep DNA (Not Detect) Group B Strep (PCR) (Not Detect) Strep pneumoniae (PCR) (Not Detect) P. aeruginosa (PCR) (Not Detect) Nuvia/B-Vanco Res Genes (Not Detect) KPC (blaKPC) Detect PCR (Not Detect) 10/10/18 10/09/18 10/07/18 Range/Units 00:43 09:30 21:30 Urine Color Yellow Dark Yellow (Yellow) Urine Clarity Cloudy A Cloudy A (Clear) Urine pH 6.0 7.5 (5.0-8.0) pH Units Ur Specific [place] 1.018 1.020 (1.010-1.025) Urine Protein >=300 H >=1000 H (Neg-Trace) mg/dL Urine Glucose (UA) Normal 250 H (Normal) mg/dL Urine Ketones Negative Negative (Negative) mg/dL Urine Blood Large H Large H (Negative) Urine Nitrite Negative Negative (Negative) Urine Bilirubin Negative Small H (Negative) Urine Urobilinogen Normal Normal (Normal) mg/dL Ur Leukocyte Esterase Moderate H Moderate H (Negative) Urine Microscopic RBC 5-15 H TNTC H (0-3) per hpf Urine Microscopic WBC 50-100 H TNTC H (0-3) per hpf Ur Squamous Epith Cells Many H Many H (None-Few) per lpf Amorphous Sediment Few (Few) Urine Bacteria None Seen Many H (None-Few) per hpf Hyaline Casts None Seen Few (None-Few) per lpf Ur Culture Indicated? NO. A (NO) Urine Creatinine mg/dL Protein/Creatinin Ratio (0.00-0.20) mg/mg Urine Sodium mEq/L Urine Total Protein (1-14) mg/dL A. baumannii (PCR) (Not Detect) Chlamy pneumoniae PCR Not Detected (Not Detect) Adenovirus (PCR) Not Detected (Not Detect) B. pertussis DNA (PCR) Not Detected (Not Detect) B.parapertussis DNA PCR Not Detected (Not Detect) Fina albicans (PCR) (Not Detect) C. glabrata (PCR) (Not Detect) C. krusei (PCR) (Not Detect) C. parapsilosis (PCR) (Not Detect) C. tropicalis (PCR) (Not Detect) Coronavirus OC43 (PCR) Not Detected (Not Detect) Coronavirus HKU1 (PCR) Not Detected (Not Detect) Coronavirus 229E (PCR) Not Detected (Not Detect) Coronavirus NL63 (PCR) Not Detected (Not Detect) Enterobacteriac sp PCR (Not Detect) E. cloacae complex PCR (Not Detect) Enterococcus sp PCR (Not Detect) E. coli (PCR) (Not Detect) H. influenzae (PCR) (Not Detect) Human Metapneumovir PCR Not Detected (Not Detect) Influenza A (H1) PCR Not Detected (Not Detect) Influ A (H1N1/09) PCR Not Detected (Not Detect) Influenza A (H3) PCR Not Detected (Not Detect) Influenza A Untype (PCR) Not Detected (Not Detect) Influenza Type B (PCR) Not Detected (Not Detect) Klebsiella oxytoca PCR (Not Detect) Klebsiella pneumoniae (Not Detect) List. monocytogenes PCR (Not Detect) M.pneumoniae DNA (PCR) Not Detected (Not Detect) N. meningitidis (PCR) (Not Detect) Parainfluenza 1 (PCR) Not Detected (Not Detect) Parainfluenza 2 (PCR) Not Detected (Not Detect) Parainfluenza 3 (PCR) Not Detected (Not Detect) Parainfluenza 4 (PCR) Not Detected (Not Detect) Proteus species (PCR) (Not Detect) RSV (PCR) Not Detected (Not Detect) Entero/Rhino (PCR) Not Detected (Not Detect) Serratia marcescens PCR (Not Detect) Staphylococcus sp PCR (Not Detect) Staph aureus (PCR) (Not Detect) mecA-Methicil Res Gene (Not Detect) Streptococcus sp PCR (Not Detect) Group A Strep DNA (Not Detect) Group B Strep (PCR) (Not Detect) Strep pneumoniae (PCR) (Not Detect) P. aeruginosa (PCR) (Not Detect) Nuvia/B-Vanco Res Genes (Not Detect) KPC (blaKPC) Detect PCR (Not Detect) 10/07/18 Range/Units 18:23 Urine Color (Yellow) Urine Clarity (Clear) Urine pH (5.0-8.0) pH Units Ur Specific [place] (1.010-1.025) Urine Protein (Neg-Trace) mg/dL Urine Glucose (UA) (Normal) mg/dL Urine Ketones (Negative) mg/dL Urine Blood (Negative) Urine Nitrite (Negative) Urine Bilirubin (Negative) Urine Urobilinogen (Normal) mg/dL Ur Leukocyte Esterase (Negative) Urine Microscopic RBC (0-3) per hpf Urine Microscopic WBC (0-3) per hpf Ur Squamous Epith Cells (None-Few) per lpf Amorphous Sediment (Few) Urine Bacteria (None-Few) per hpf Hyaline Casts (None-Few) per lpf Ur Culture Indicated? (NO) Urine Creatinine mg/dL Protein/Creatinin Ratio (0.00-0.20) mg/mg Urine Sodium mEq/L Urine Total Protein (1-14) mg/dL A. baumannii (PCR) Not Detected (Not Detect) Chlamy pneumoniae PCR (Not Detect) Adenovirus (PCR) (Not Detect) B. pertussis DNA (PCR) (Not Detect) B.parapertussis DNA PCR (Not Detect) Fina albicans (PCR) Not Detected (Not Detect) C. glabrata (PCR) Not Detected (Not Detect) C. krusei (PCR) Not Detected (Not Detect) C. parapsilosis (PCR) Not Detected (Not Detect) C. tropicalis (PCR) Not Detected (Not Detect) Coronavirus OC43 (PCR) (Not Detect) Coronavirus HKU1 (PCR) (Not Detect) Coronavirus 229E (PCR) (Not Detect) Coronavirus NL63 (PCR) (Not Detect) Enterobacteriac sp PCR Not Detected (Not Detect) E. cloacae complex PCR Not Detected (Not Detect) Enterococcus sp PCR Not Detected (Not Detect) E. coli (PCR) Not Detected (Not Detect) H. influenzae (PCR) Not Detected (Not Detect) Human Metapneumovir PCR (Not Detect) Influenza A (H1) PCR (Not Detect) Influ A (H1N1/09) PCR (Not Detect) Influenza A (H3) PCR (Not Detect) Influenza A Untype (PCR) (Not Detect) Influenza Type B (PCR) (Not Detect) Klebsiella oxytoca PCR Not Detected (Not Detect) Klebsiella pneumoniae Not Detected (Not Detect) List. monocytogenes PCR Not Detected (Not Detect) M.pneumoniae DNA (PCR) (Not Detect) N. meningitidis (PCR) Not Detected (Not Detect) Parainfluenza 1 (PCR) (Not Detect) Parainfluenza 2 (PCR) (Not Detect) Parainfluenza 3 (PCR) (Not Detect) Parainfluenza 4 (PCR) (Not Detect) Proteus species (PCR) Not Detected (Not Detect) RSV (PCR) (Not Detect) Entero/Rhino (PCR) (Not Detect) Serratia marcescens PCR Not Detected (Not Detect) Staphylococcus sp PCR Not Detected (Not Detect) Staph aureus (PCR) Not Detected (Not Detect) mecA-Methicil Res Gene N/A (Not Detect) Streptococcus sp PCR DETECTED A (Not Detect) Group A Strep DNA Not Detected (Not Detect) Group B Strep (PCR) DETECTED A (Not Detect) Strep pneumoniae (PCR) Not Detected (Not Detect) P. aeruginosa (PCR) Not Detected (Not Detect) Nuvia/B-Vanco Res Genes N/A (Not Detect) KPC (blaKPC) Detect PCR N/A (Not Detect) - Impressions Impressions KUB X-Ray 10/15/18 14:34 IMPRESSION: No evidence of acute abnormality or significant fecal retention. D/ / 10/15/2018 17:12:43 Liban Richardson MD / vasile Interpreting Provider: Liban Richardson MD Exam - Constitutional Vitals: Temp Pulse Resp BP Pulse Ox 98.1 F 59 16 165/84 97 10/16/18 07:09 10/16/18 07:09 10/16/18 07:09 10/16/18 07:09 10/16/18 07:09 General appearance: cooperative, morbidly obese, no acute distress - Head Head exam: Present: atraumatic, normal inspection, normocephalic - Eye Eye exam: Present: EOMI, normal appearance, PERRL Pupils: Present: normal accommodation - ENT ENT exam: Present: mucous membranes moist - Neck Neck exam: Present: normal inspection - Respiratory Respiratory exam: Present: CTAB. Absent: rales, respiratory distress, rhonchi, wheezes - Cardiovascular Cardiovascular exam: Present: RRR, +S1, +S2 - GI/Abdominal GI/Abdominal exam: Present: distended (obese), normal bowel sounds, soft. Absent: tenderness - Extremities Exam Extremities exam: Present: pedal edema (1+ LLE). Absent: joint swelling, normal inspection (Right lower leg erythema improved. Desquamation noted. Left foot wound VAC intact with scant serous drainage noted in the canister. No leak noted.), tenderness Additional comments: Right AKA stump without abnormality. - Neurological Exam Neurological exam: Present: alert, oriented X3, no focal deficits - Psychiatric Psychiatric exam: Present: normal affect, normal mood - Skin Skin exam: Present: dry, intact, normal color, warm Consult Discharge Plan - Plan Referrals: Fredrick Oneil DPM [Partnered Physician] - 10/22/18 1:30 pm Magalys Ramos BOOK [employer]ICITOR [Advanced Practice Nurse] - 10/28/18 2:25 pm Prescriptions: cefTRIAXone [Rocephin] 2,000 mg IVPB DAILY 14 Days #14 vial - Attending Attestation I have personally performed a face to face evaluation on this patient. I have reviewed and agree with the care plan. History and Exam by me shows: A/P: 1.sepsis 2.bacteremia with group B streptococcus 3.osteomyelitis of the left calcaneus 4.left foot abscess with group B streptococcus and Proteus mirabilis Recommendations: Wound care per the Podiatry team. Continue Rocephin 2 g IV daily. Duration of treatment depends on the clinical picture, but we will likely do a prolonged course of IV antibiotics given that the patient is at high risk for loss of limb if infection progresses and she has already undergone a right AKA. We will follow the patient closely in clinic and base our duration of treatment on how well she does and her inflammatory markers. Continue IV antibiotics un til evaluated by infectious disease as an outpatient. Monitor renal function and dose-adjust antibiotics. We will need weekly CBC, BUNs/creatinine, ESR, and CRP. Will need weekly IV care per protocol. Follow up with ID 10/28/18 at 1425.
--- NOTE | 2018-10-16 10:31 | Nephrology Progress Note ---
Date of Encounter: 10/16/18 Time of Encounter: 09:30 - Assessment and Plan (1) Acute kidney injury superimposed on chronic kidney disease Current Visit: Yes Status: Acute Patient has history of CKD, stage III. Currently in the setting of REMY. Etiology of REMY is multifactorial. -Potential etiologies of REMY on CKD are of pre-renal and intrinsic pathologies -Pre-renal etiologies resulting from decreased effective arterial volume or renal vasoconstriction Decreased effective arterial volume-hypovolemia, decreased cardiac contractility from CHF, systemic vasodilation from sepsis -Patient does report decreased intake and decreased urine output over the course of admission -No water intake and minimal fluid intake (24 oz/day) in the form of soda Renal vasoconstriction- ACEi/ARB (patient takes lisinopril in outpatient setting) -Intrinsic etiology is acute tubular necrosis secondary to toxic drug exposure (vancomycin). Likely insult is vancomycin administration in the setting of CKD, stage III Labs/Imaging: -Scr 1.75, BUN 42, GFR 30, BUN/Cr 24 Renal function continuing to show signs of improvement. -Na 136, K 5.2 -U/A Protein 100, high Glucose 250, high Small amount of blood U cr 63 Protein/creatinine ratio 4.97, high Urine total protein 313, high -I & O (10/15/18)- intake 960, 1800 mL output, -840 mL balance Urine 100 mL, Catheter 1700 mL, Purewick 950 mL -Retroperitoneal ultrasound, impression- indeterminate findings upper pole R kidney with cystic area and probable calcification which may be related to the cyst itself or could reflect intrarenal stones. PLAN: -Patient is stable from nephrology standpoint, we will sign off at this time. Stable renal function, returning to baseline. -Avoid nephrotoxic and renally dose medications -Hold ACEi/ARB -Strict I & O -Diabetic diet -Follow up with outpatient nephrology (2) CKD (chronic kidney disease) stage 3, GFR 30-59 ml/min Current Visit: No Status: Chronic Patient has history of CKD, stage III. Currently in the setting of REMY. Patient follows with Marguerite Shepard in outpatient setting PLAN: -Recommend using less renally toxic antibiotic; avoid nephrotoxics and renally dose medications -Hold ACEi/ARB (3) Hyperkalemia Current Visit: Yes Status: Resolved Potassium elevated at 5.2 on 10/14/18 and today on AM labs. Elevated compared to previous day's labs Patient received Kayexalate 15 gm on 10/14. Patient reports bowel movement following Kayexalate administration. PLAN: -Continue to monitor (4) Hyponatremia Current Visit: No Status: Acute Resolved. Patient has history of CKD, stage III Hyponatremia is likely hypovolemic hyponatremia with U Na 33.7; potential etiology is renal losses or extrarenal losses, such as decreased PO intake On admission, patient was hyponatremic at 129. Patient has remained hyponatremic over the course of admission Na on AM labs 136 PLAN: -Continue to monitor (5) Anemia Current Visit: Yes Status: Acute Patient has history of anemia of chronic disease. Patient has history of CKD, stage III; likely contributing to anemia REMY on CKD also contributing to anemia Hemoglobin on AM labs today 9.2; improving Chart review reveals hemoglobin is chronically low between 7-10 PLAN: -Fe studies -B12 -Folate -Supplement Fe if low -Recommend transfusion if hemoglobin drops <7 pending decision from primary team Qualifiers: Anemia type: unspecified type Qualified Code(s): D64.9 - Anemia, unspecified (6) Hypertension Current Visit: Yes Status: Chronic Patient has history of hypertension Most recent blood pressure 165/84; ranging from 160s-170s SBP Continue home medications Amlodipine 10 mg PO QD Metoprolol 12.5 mg mg PO BID Hold Lisinopril 10 mg PO QD in setting of REMY on CKD Titrate antihypertensives as needed. Management per primary team. Qualifiers: Hypertension type: essential hypertension Qualified Code(s): I10 - Essential (primary) hypertension (7) Sepsis Current Visit: Yes Status: Acute Per primary team. Patient was tachycardic, tachypneic and with leukocytosis on admission, secondary to R lower lobe pneumonia and L LE cellulitis Qualifiers: Sepsis type: Streptococcus group B Qualified Code(s): A40.1 - Sepsis due to streptococcus, group B (8) Bacteremia Current Visit: Yes Status: Acute Per primary team and ID. (9) Cellulitis of left lower extremity Current Visit: Yes Status: Acute Patient found to have L LE cellulitis on admission Management per primary team, ID and podiatry Avoid nephrotoxic agents and renally dose antibiotics. (10) Pressure ulcer, heel, left, unstageable Current Visit: Yes Status: Acute Per primary team and podiatry. (11) Pneumonia Current Visit: Yes Status: Ruled-out Patient was found to have right lower lobe pneumonia on admission. Management per primary team Qualifiers: Pneumonia type: due to unspecified organism Laterality: right Lung location: lower lobe of lung Qualified Code(s): J18.1 - Lobar pneumonia, unspecified organism (12) Leukocytosis Current Visit: No Status: Acute On admission, patient's WBC was 16.1 On AM labs, WBC is 10.1- improving Management per primary team and ID. Qualifiers: Qualified Code(s): D72.829 - Elevated white blood cell count, unspecified (13) Type 2 diabetes mellitus Current Visit: No Status: Chronic Patient has history of insulin dependent T2DM Presented with chief complaint of elevated blood glucose readings Initial blood glucose onf 10/07 was 204 Blood glucose on AM labs today 167 Management per primary team- continue insulin, sliding scale insulin and diabetic diet. Qualifiers: Diabetes mellitus long term acute care registered nurse insulin use: with [facility]p use Diabetes mellitus complication status: with hyperglycemia Qualified Code(s): E11.65 - Type 2 diabetes mellitus with hyperglycemia; Z79.4 - assisted (current) use of insulin (14) CHF (congestive heart failure) Current Visit: Yes Status: Acute Patient's history is significant for CHF. Echo in April 2018 with LVEF of 60% Management per primary team. Qualifiers: Heart failure type: diastolic Heart failure chronicity: acute on chronic Qualified Code(s): I50.33 - Acute on chronic diastolic (congestive) heart failure (15) CAD (coronary artery disease) Current Visit: Yes Status: Chronic Patient has history of CAD. Continue aspirin, statin, plavix, metoprolol Holding Lisinopril in setting of REMY Management per primary team. Qualifiers: Coronary Disease-Associated Artery/Lesion type: [place] artery [place] vs. transplanted heart: [place] heart Associated angina: without angina Qualified Code(s): I25.10 - Atherosclerotic heart disease of [place] coronary artery without angina pectoris Subjective Principal diagnosis: s/p I&D left foot Interval history: Ms. 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 Patient had ongoing L LE wound receiving ongoing therapy with podiatry, whom she had seen the week prior. Through ED workup, patient was found to have R lower lobe pnuemonia, for which she was admitted. Patient was treated with vancomycin on 10/08 and 10/11 and was taken to the OR with orthopedics on 10/10/18 for I & D of abscess in multiple locations of the L foot. Nephrology was consulted due to REMY on CKD, stage III. Patient was seen and examined at bedside this morning. She was observed resting comfortably in bed, in no acute distress. Patient reports continued constipation; denies dysuria, fever, chills, nausea, vomiting, chest pain, shortness of breath, diarrhea, edema. She had no questions at this time and expressed understand of plan form nephrology stand point. Objective - Vital Signs Vital signs: Vital Signs Temp Pulse Resp BP Pulse Ox 10/16/18 07:09 98.1 F 59 16 165/84 97 10/16/18 04:31 98.2 F 59 18 178/82 97 10/15/18 18:52 97.7 F 57 18 173/90 99 10/15/18 12:09 97.6 F 57 16 167/82 97 Intake and Output 10/15/18 10/16/18 10/16/18 23:59 07:59 15:59 Intake Total 480 / 480 Output Total 450 / 450 Balance 30 / 30 Intake: Oral 480 / 480 Output: Catheter 450 / 450 Other: Meal Dinner Percent of Meal Consumed 50% # Urine Diapers 1 Blood Glucose* 170 155 - General Appearance General appearance: Present: well-developed, well-nourished, appears started age, obese EENT: Present: ATNC, mucous membranes moist, hearing intact Neck: Present: supple Respiratory: Present: course breath sounds Cardiology: Present: edema, regular rate, regular rhythm, normal S1, normal S2 Gastrointestinal: Present: normoactive bowel sounds, no tenderness, no guarding Integumentary: Present: no rash, warm and dry Neurologic: Present: no focal deficit Musculoskeletal: Present: deformities (R BKA ), erythema (L LE erythema), no cyanosis, no clubbing Psychiatric: Present: mood/affect appropriate, cooperative - Lab 10/16/18 05:53 10/16/18 05:53 Most recent lab results Calcium 8.9 mg/dL (8.6-10.3) 10/16/18 05:53 Urine Creatinine 63 mg/dL 10/15/18 04:00 Urine Sodium 33.7 mEq/L 10/10/18 00:43 Urine Total Protein 313 mg/dL (1-14) H 10/15/18 04:00 Consult Discharge Plan - Plan Referrals: Fredrick Oneil DPM [Partnered Physician] - 10/22/18 1:30 pm Magalys Ramos [employer] [Advanced Practice Nurse] - 10/28/18 2:25 pm Prescriptions: cefTRIAXone [Rocephin] 2,000 mg IVPB DAILY 14 Days #14 vial
--- NOTE | 2018-10-16 16:03 | Internal Med Progress Note ---
<Hoa Sanders M - Last Filed: 10/16/18 17:52> Hospitalist Progress Note - Encounter Date of Encounter: 10/16/18 Time of Encounter: 08:32 - Subjective Interval History: Valerie states she is doing well this morning. Had a large bowel movement yesterday. KUB without evidence of acute abnormality or fecal retention. She denies left foot pain. No acute complaints today. Discussed lifestyle and dietary modifications and smoking cessation counseled. - Exam Vitals: Temp Pulse Resp BP Pulse Ox 98.3 F 59 16 178/78 96 10/16/18 14:37 10/16/18 14:37 10/16/18 14:37 10/16/18 14:37 10/16/18 14:37 Exam: General: alert, laying in bed, no acute distress HEENT: atraumatic, normocephalic, oral mucosa moist, normal conjunctiva, no scleral icterus Cardiac: RRR, no murmur, normal S1, S2 Lungs: CTA bilaterally without wheezing or rhonchi Abdomen: soft, nontender, nondistended MSK: Right BKA. Left lower extremity with aneudy wrap on foot and ankle. Wound vac in place with heel medix boot. Mild LLE swelling and erythema. Mild tenderness to palpation Neuro: AAOx3 Psych: appropriate mood and affect Skin: LLE with erythema and dryness and cracking to mid addison and calf, unchanged. Warm. - Assessment and Plan (1) Sepsis Current Visit: Yes Status: Acute Assessment and Plan: Resolved Due to left lower extremity cellulitis, left foot abscess, osteomyelitis,and streptococcal bacteremia Surgical biopsy cultures of left foot grew proteus mirabilis and strep agalactiae 08/13 Blood cultures from 10/07 grew strep agalactiae Repeat blood cultures on negative to date Fungal culture negative, anaerobic culture negative Echocardiogram obtained on 10/15 to evaluate for vegetations. EF 60%. Inadequate images. Continue IV Rocephin, day 4 Infectious disease following Plan for discharge home with home health once hyperkalemia resolves (2) Cellulitis of left lower extremity Current Visit: Yes Status: Acute Assessment and Plan: Blood cultures on 10/07 1 positive for strep agalactiae Repeat blood cultures on 10/10/18 negative Was initially on Vancomycin and Zosyn, now Rocephin Will need prolonged IV abx course. Appreciate Infectious ID recommendations (3) Foot abscess, left Current Visit: Yes Status: Acute Assessment and Plan: S/p I&D per Podiatry on 10/10/18 Wound vac placed on 10/13/18 per podiatry, wound vac changed today Final culture positive for proteus mirabilis and group B strep Acid fast stain negative Anaerobic culture and fungal culture negative On IV Rocephin, day 4. Will need prolonged course of IV abx as an outpatient F/u ID and podiatry as outpatient No weight bearing on LLE (4) Osteomyelitis Current Visit: Yes Status: Suspected Assessment and Plan: Suspected. MRI: Large shallow soft tissue ulceration of the pelvic per aspect of the heel with diffuse subcutaneous edema and 2 x 1.4 x 1.4 cm complex fluid collection in the subcutaneous fat of the posterior aspect of the heel compatible with an abscess. Very mild bone marrow edema in posterior inferior aspect of calcaneus with no osseous erosion suspicious for noninfectious reactive osteitis versus early osteomyelitis Elevated ESR and CRP Continue with Rocephin 2g IV qd with prolonged course Follow up with Infectious disease and Podiatry as outpatient (5) Pressure ulcer, heel, left, unstageable Current Visit: Yes Status: Acute Assessment and Plan: Plan as above (6) Hyperkalemia Current Visit: Yes Status: Acute Assessment and Plan: Elevated today at 5.2. Will give another dose of kayexalate. If trending down, anticipate discharge home tomorrow (7) Acute kidney injury superimposed on chronic kidney disease Current Visit: Yes Status: Acute Assessment and Plan: Acute on chronic kidney disease stage III Likely due to sepsis, vancomycin and zosyn regimen; likely prerenal and intrinsic disease Appreciate Nephrology recommendations. F/u as outpatient Will continue to hold lisinopril until BUN/Cr back to baseline (8) Constipation Current Visit: Yes Status: Resolved Assessment and Plan: Patient had large bowel movement yesterday after kayaxalate and milk of mag KUB without acute abnormality Will need a bowel regimen as outpatient (9) Anemia Current Visit: Yes Status: Acute Assessment and Plan: Anemia of chronic disease, stable (10) Diabetes Current Visit: Yes Status: Acute Assessment and Plan: Controlled Discussed strict glycemic control and diet and lifestyle changes as outpatient Continue current insulin regimen (11) Chronic diastolic heart failure Current Visit: No Status: Chronic Assessment and Plan: Echocardiogram on 10/16/18 with LVEF 60%, unchanged from prior Repeating echo today to evaluate for vegetations (12) Hypertension Current Visit: Yes Status: Chronic Assessment and Plan: Elevated at times Continue Norvasc and metoprolol Lisinopril on hold due to REMY (13) CAD (coronary artery disease) Current Visit: Yes Status: Chronic Assessment and Plan: Continue home meds (14) S/P BKA (below knee amputation) Current Visit: No Status: Acute - Time Spent with Patient Total time spent is greater than 50% in coordination of care (as documented) at patient's floor/unit and/or counseling patient: Internal Medicine: Result - Labs CBC & Chem 7: 10/16/18 05:53 10/16/18 12:22 Labs: Short CBC 10/16/18 Range/Units 05:53 WBC 10.1 (4.3-11.1) K/mcL Hgb 9.2 L (11.5-15.4) g/dL Hct 31.2 L (35.3-44.9) % Plt Count 441 H (140-400) K/mcL Neutrophils # 7.0 (1.6-8.9) K/mcL BMP 10/16/18 10/16/18 05:53 12:22 Sodium 136 Potassium 5.2 H 5.1 Chloride 107 Carbon Dioxide 20 L BUN 42 H Creatinine 1.75 H Glucose 167 H Calcium 8.9 - Impressions Impressions Echocardiogram 10/15/18 11:55 Impressions: LVEF 60%. Mildly dilated left ventricle. Mild segmental left ventricular systolic dysfunction. Moderate left ventricular diastolic dysfunction. Right ventricle was not well visualized. Grossly, it is normal in function. Mild aortic regurgitation. Mild mitral regurgitation. Mild tricuspid regurgitation. Moderate pulmonary hypertension. Estimated RVSP is 51 mmHg. Inadequate images to evaluate for endocarditis. Recommend MARILUZ if clinically indicated. Left Ventricular Wall Motion: Rest Echo Findings The apical lateral wall was hypokinetic. All other wall segments showed normal motion. Findings: Study Quality * Technically sub-optimal due to body habitus. ECG Findings * Sinus bradycardia. Left Ventricle * LVEF 60%. * Mildly dilated left ventricle. * Moderate left ventricular diastolic dysfunction. * Mild segmental left ventricular systolic dysfunction. Right Ventricle * Right ventricle was not well visualized. Grossly, it is normal in function. Left Atrium * Mildly dilated left atrium. Right Atrium * Mildly dilated right atrium. Aortic Valve * Aortic valve not well visualized. * Mild aortic regurgitation. * No aortic stenosis. Mitral Valve * Mildly thickened mitral valve leaflets. * Mild mitral regurgitation. * No mitral stenosis. Tricuspid Valve * Not well visualized. * Mild tricuspid regurgitation. * Moderate pulmonary hypertension. * Estimated RVSP is 51 mmHg. * Estimated RA pressure is 5 mmHg. Pulmonic Valve * Pulmonic valve not well visualized. * No pulmonic regurgitation. Aorta * Normally sized aortic root. Pericardium * The pericardium appears normal. IVC * The IVC is not dilated. * Response to Valsalva not well appreciated. Pulmonary Artery * Pulmonary artery not well visualized. KUB X-Ray 10/15/18 14:34 IMPRESSION: No evidence of acute abnormality or significant fecal retention. D/ / 10/15/2018 17:12:43 Liban Richardson MD / vasile Interpreting Provider: Liban Richardson MD Consult Discharge Plan - Plan Referrals: Fredrick Oneil DPM [Partnered Physician] - 10/22/18 1:30 pm Magalys Ramos, DIRECTOR OF PERSONNEL [Advanced Practice Nurse] - 10/28/18 2:25 pm Prescriptions: cefTRIAXone [Rocephin] 2,000 mg IVPB DAILY 14 Days #14 vial <Corey Grider - Last Filed: 10/16/18 18:10> Hospitalist Progress Note - Encounter Date of Encounter: 10/16/18 Internal Medicine: Result - Labs CBC & Chem 7: 10/16/18 05:53 10/16/18 12:22 Labs: Short CBC 10/16/18 Range/Units 05:53 WBC 10.1 (4.3-11.1) K/mcL Hgb 9.2 L (11.5-15.4) g/dL Hct 31.2 L (35.3-44.9) % Plt Count 441 H (140-400) K/mcL Neutrophils # 7.0 (1.6-8.9) K/mcL BMP 10/16/18 10/16/18 05:53 12:22 Sodium 136 Potassium 5.2 H 5.1 Chloride 107 Carbon Dioxide 20 L BUN 42 H Creatinine 1.75 H Glucose 167 H Calcium 8.9 - Impressions Impressions Echocardiogram 10/15/18 11:55 Impressions: LVEF 60%. Mildly dilated left ventricle. Mild segmental left ventricular systolic dysfunction. Moderate left ventricular diastolic dysfunction. Right ventricle was not well visualized. Grossly, it is normal in function. Mild aortic regurgitation. Mild mitral regurgitation. Mild tricuspid regurgitation. Moderate pulmonary hypertension. Estimated RVSP is 51 mmHg. Inadequate images to evaluate for endocarditis. Recommend MARILUZ if clinically indicated. Left Ventricular Wall Motion: Rest Echo Findings The apical lateral wall was hypokinetic. All other wall segments showed normal motion. Findings: Study Quality * Technically sub-optimal due to body habitus. ECG Findings * Sinus bradycardia. Left Ventricle * LVEF 60%. * Mildly dilated left ventricle. * Moderate left ventricular diastolic dysfunction. * Mild segmental left ventricular systolic dysfunction. Right Ventricle * Right ventricle was not well visualized. Grossly, it is normal in function. Left Atrium * Mildly dilated left atrium. Right Atrium * Mildly dilated right atrium. Aortic Valve * Aortic valve not well visualized. * Mild aortic regurgitation. * No aortic stenosis. Mitral Valve * Mildly thickened mitral valve leaflets. * Mild mitral regurgitation. * No mitral stenosis. Tricuspid Valve * Not well visualized. * Mild tricuspid regurgitation. * Moderate pulmonary hypertension. * Estimated RVSP is 51 mmHg. * Estimated RA pressure is 5 mmHg. Pulmonic Valve * Pulmonic valve not well visualized. * No pulmonic regurgitation. Aorta * Normally sized aortic root. Pericardium * The pericardium appears normal. IVC * The IVC is not dilated. * Response to Valsalva not well appreciated. Pulmonary Artery * Pulmonary artery not well visualized. - Attending Attestation Patient seen and examined independently, including review of objective data including labs. I agree with plan of care as documented above by the resident with the following comments: Anticipated discharge today but patient's potassium has been elevated over baseline for last several days, likely 2/2 REMY from abx. Few days ago required kayexalate and responded well, and currently Cr and GFR are steadily improving so potassium expected to continue downtrending but today it was again elevated. Not on any culprit meds. Dose of kayexalate given in AM, with repeat K in afternoon down from 5.2 to 5.1, will administer second dose and repeat in AM. If improves, can likely d/c as planned. <TommyHoa M - Last Filed: 10/16/18 17:52> (1) Sepsis Qualifiers: Sepsis type: Streptococcus group B Qualified Code(s): A40.1 - Sepsis due to streptococcus, group B (4) Osteomyelitis Qualifiers: Osteomyelitis type: acute hematogenous Osteomyelitis location: foot Laterality: left Qualified Code(s): M86.072 - Acute hematogenous osteomyelitis, left ankle and foot (9) Anemia Qualifiers: Anemia type: unspecified type Qualified Code(s): D64.9 - Anemia, unspecified (10) Diabetes Qualifiers: Diabetes mellitus type: type 2 Diabetes mellitus joint terminal attack controller insulin use: unspecified skilled nursing insulin use status Diabetes mellitus complication status: with circulatory complication Diabetes mellitus complication detail: with other circulatory complications Qualified Code(s): E11.59 - Type 2 diabetes mellitus with other circulatory complications (12) Hypertension Qualifiers: Hypertension type: essential hypertension Qualified Code(s): I10 - Essential (primary) hypertension (13) CAD (coronary artery disease) Qualifiers: Coronary Disease-Associated Artery/Lesion type: [place] artery [place] vs. transplanted heart: [place] heart Associated angina: without angina Qualified Code(s): I25.10 - Atherosclerotic heart disease of [place] coronary artery witho ut angina pectoris (14) S/P BKA (below knee amputation) Qualifiers: Laterality: right Qualified Code(s): Z89.511 - Acquired absence of right leg below knee
[2018-10-16] MEDS: cefTRIAXone 2,000 MG in 0.9 % Sodium Chloride Mini Bag 100 ML IVPB SCH (17:37)
[2018-10-16] MEDS: Famotidine 20 MG TABLET PO SCH (21:05)
[2018-10-17] MEDS: *HR* Enoxaparin 30 MG/0.3 ML SYRINGE SQ SCH (05:38)
--- NOTE | 2018-10-17 07:19 | Event Note ---
Date of Encounter: 10/17/18 Time of Encounter: 07:17 - Nephrology Event Note Nephrology Chart Review The pt's renal function was trending better over the last few days (pending labs today), but given the easy correction with IVF, she is likely to return to near her known baseline of CKD. I recommend outpt Nephrology follow up. She has established with Dr. Soriano. I will sign-off at this point, but please feel free to call or page the [facility] group with any questions. Thank you.
[2018-10-17] MEDS: Aspirin 81 MG TAB.CHEW PO SCH (09:03)
[2018-10-17] MEDS: Gabapentin 300 MG CAPSULE PO SCH (09:03)
[2018-10-17] MEDS: Insulin DETEMIR 100 UNIT/ML X5UNITS SQ SCH (09:03)
[2018-10-17] MEDS: amLODIPine 5 MG TABLET PO SCH (09:03)
[2018-10-17] MEDS: Magnesium Oxide 400 MG TABLET PO SCH (09:03)
[2018-10-17] MEDS: Insulin LISPRO 300 UNITS/3 ML VIAL SQ SCH ×3 (09:05→16:36)
--- NOTE | 2018-10-17 10:01 | Infectious Disease Progress No ---
Date of Encounter: 10/17/18 Time of Encounter: 09:00 - Assessment and Plan (1) Sepsis Current Visit: Yes Status: Acute The patient had two SIRS criteria plus REMY on admission. Likely secondary to left foot wound infection. Improved. WBC stable. Tachycardia resolved. Blood cultures drawn 10/07/18 are positive 1/2 for GBS. Repeat blood cultures drawn 10/10/18 are negative 2 sets. Recommendations: Check CBC and BMP. Wound care per the Podiatry team. Continue Rocephin 2 g IV daily. Duration of treatment depends on the clinical picture, but we will likely do a prolonged course of IV antibiotics given that the patient is at high risk for loss of limb if infection progresses and she has already undergone a right AKA. We will follow the patient closely in clinic and base our duration of treatment on how well she does and her inflammatory markers. Continue IV antibiotics until evaluated by infectious disease as an outpatient. Monitor renal function and dose-adjust antibiotics. We will need weekly CBC, BUNs/creatinine, ESR, and CRP. Will need weekly IV care per protocol. Follow up with ID 10/28/18 at 1425. Qualifiers: Qualified Code(s): A40.1 - Sepsis due to streptococcus, group B (2) Bacteremia Current Visit: Yes Status: Acute Causative organism: Group B strep. Source: Likely the left foot. Blood cultures drawn 10/07/18 are +1 out of 2 sets for GBS Repeat blood cultures drawn 10/10/18 are negative 2 sets. Currently on Rocephin. (3) Osteomyelitis Current Visit: Yes Status: Suspected Suspected. Location: Left calcaneus. MRI of the left foot showed findings consistent with cellulitis, abscess, and early osteomyelitis versus reactive osteitis. Given the patient's markedly elevated inflammatory markers (ESR greater than 130, CRP 156) I am highly suspicious that there is an underlying osteomyelitis. Podiatry has been consulted. Status post I&D of multiple abscesses 10/10/18. Intraoperative findings not indicative of osteomyelitis, but given the extent of the infection down to the level of the fascia and the fact that patient is high risk for losing her limb, we will treat this with a course of IV antibiotics. Currently on Rocephin. Qualifiers: Qualified Code(s): M86.072 - Acute hematogenous osteomyelitis, left ankle and foot (4) Foot abscess, left Current Visit: Yes Status: Acute Location: Left foot. Causative organism: Proteus mirabilis and group B strep. MRI of the left foot and ankle showed a large shallow soft tissue ulceration of the plantar aspect of the left heel with diffuse subcutaneous edema compatible with cellulitis. There is a 2 x 1.4 x 1.4 cm complex fluid collection in the subcutaneous fat of the posterior lateral aspect of the left heel compatible with an abscess. This does not contact the underlying calcaneus, but there is very mild bone marrow edema in the posterior inferior aspect of the calcaneus with normal T1 signal. No osseous erosion, but this may represent noninfectious reactive osteitis versus early osteomyelitis, although less likely. Podiatry's been consulted. Status post I&D of multiple abscess 10/10/18. Opera tive note reviewed. No evidence of osteomyelitis. Currently on Rocephin. (5) Pressure ulcer, heel, left, unstageable Current Visit: Yes Status: Acute Location: Left heel. Ongoing x 1 month. Secondary to moisture-associated skin breakdown. Likely exacerbated by tobacco use, uncontrolled DM, and PAD. Podiatry consulted and following. (6) Chronic venous insufficiency Current Visit: Yes Status: Acute Venous stasis to the LLE vs. cellulitis. Tender and warm to touch, but appears chronic. Recommend compression dressing per previous wound care orders. Management per the Podiatry team. (7) Pneumonia Current Visit: Yes Status: Ruled-out CXR shows central vascular congestion with perihilar edema vs. infiltrate. Moist cough, but no shortness of breath. Respiratory infectious panel negative. PA/Lateral CXR negative for infiltrate. Qualifiers: Qualified Code(s): J18.1 - Lobar pneumonia, unspecified organism (8) Acute kidney injury Current Visit: Yes Status: Acute Serum creatinine elevated, but improved. Likely secondary to sepsis and vanc toxicity. Improved. Continue to trend. Dose-adjust antibiotics and avoid nephrotoxins as able. Vancomycin discontinued. Nephrology consulted and following. (9) Hyperglycemia Current Visit: Yes Status: Acute Secondary to poorly controlled DM and infection. HgbA1C 10%. Strict glucose control per the primary team. (10) Hyponatremia Current Visit: No Status: Acute Management per the primary team. 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 (12) Diabetic neuropathy Current Visit: No Status: Acute Qualifiers: Qualified Code(s): E11.42 - Type 2 diabetes mellitus with diabetic polyneuropathy (13) Hyperlipidemia Current Visit: No Status: Chronic Qualifiers: Qualified Code(s): E78.2 - Mixed hyperlipidemia (14) CKD (chronic kidney disease) stage 3, GFR 30-59 ml/min Current Visit: No Status: Chronic (15) Hypertension Current Visit: Yes Status: Chronic Qualifiers: Qualified Code(s): I10 - Essential (primary) hypertension (16) Chronic diastolic heart failure Current Visit: No Status: Chronic (17) Peripheral arterial disease Current Visit: No Status: Chronic Status post 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 Left lower extremity DESTINY shows findings consistent with mild disease. TCP O2 monitoring consistent with healing Consider vascular to evaluate. (18) Anemia Current Visit: Yes Status: Acute Qualifiers: Qualified Code(s): D64.9 - Anemia, unspecified (19) Depression Current Visit: No Status: Chronic Qualifiers: Qualified Code(s): F32.9 - Major depressive disorder, single episode, unspecified (20) S/P BKA (below knee amputation) Current Visit: No Status: Acute Qualifiers: Qualified Code(s): Z89.511 - Acquired absence of right leg below knee - Subjective Interval history: Patient seen and examined. No acute events noted overnight. Patient states overall she feels well. Denies fevers, chills, or rigors. Denies chest pain or shortness of breath. Reports a moist nonproductive cough that is better today. Denies abdominal pain or urinary complaints. Denies any nausea, vomiting, diarrhea, or constipation. Last BM two days ago. States her appetite is good. She denies any oral thrush any skin lesions. She denies any pain at this time. Pending discharge. Infect Dis PN-Objective Data - Labs CBC & Chem 7: 10/17/18 09:32 10/17/18 11:43 Labs: Laboratory Results - last 24 hr 10/15/18 10/16/18 10/16/18 12:10 07:54 11:50 Potassium POC Glucose 227 H 155 H 219 H 10/16/18 10/16/18 10/16/18 12:22 16:51 20:54 Potassium 5.1 POC Glucose 274 H 257 H Cultures: Cultures 10/10/18 17:04 Anaerobic Culture - Final Left Foot No anaerobes were recovered. 10/10/18 10:02 Blood Culture - Final Peripheral Venipuncture No growth. Final report. 10/10/18 10:00 Blood Culture - Final Peripheral Venipuncture No growth. Final report. 10/10/18 17:04 Surgical Biopsy Culture - Final Left Foot Proteus mirabilis Strep agalactiae - (Group B) 10/07/18 18:25 Blood Culture - Final Peripheral Venipuncture No growth. Final report. 10/10/18 17:04 Acid Fast Stain - Final Left Foot 10/10/18 17:04 Fungal Culture - Preliminary Left Foot Culture is incubating. 10/07/18 18:23 Blood Culture - Final Peripheral Venipuncture Strep agalactiae - (Group B) 10/07/18 18:56 Influenza Types A,B Antigen - Final Nasopharyngeal Serology 10/15/18 10/14/18 10/10/18 Range/Units 04:00 04:00 00:43 Urine Color Yellow (Yellow) Urine Clarity Clear (Clear) Urine pH 6.0 (5.0-8.0) pH Units Ur Specific Meherrin 1.021 (1.010-1.025) Urine Protein 100 H (Neg-Trace) mg/dL Urine Glucose (UA) 250 H (Normal) mg/dL Urine Ketones Negative (Negative) mg/dL Urine Blood Small H (Negative) Urine Nitrite Negative (Negative) Urine Bilirubin Negative (Negative) Urine Urobilinogen Normal (Normal) mg/dL Ur Leukocyte Esterase Negative (Negative) Urine Microscopic RBC 5-15 H (0-3) per hpf Urine Microscopic WBC 3-5 H (0-3) per hpf Ur Squamous Epith Cells Many H (None-Few) per lpf Amorphous Sediment (Few) Urine Bacteria None Seen (None-Few) per hpf Hyaline Casts None Seen (None-Few) per lpf Ur Culture Indicated? NO (NO) Urine Creatinine 63 86 mg/dL Protein/Creatinin Ratio 4.97 H (0.00-0.20) mg/mg Urine Sodium 33.7 mEq/L Urine Total Protein 313 H (1-14) mg/dL A. baumannii (PCR) (Not Detect) Chlamy pneumoniae PCR (Not Detect) Adenovirus (PCR) (Not Detect) B. pertussis DNA (PCR) (Not Detect) B.parapertussis DNA PCR (Not Detect) Fina albicans (PCR) (Not Detect) C. glabrata (PCR) (Not Detect) C. krusei (PCR) (Not Detect) C. parapsilosis (PCR) (Not Detect) C. tropicalis (PCR) (Not Detect) Coronavirus OC43 (PCR) (Not Detect) Coronavirus HKU1 (PCR) (Not Detect) Coronavirus 229E (PCR) (Not Detect) Coronavirus NL63 (PCR) (Not Detect) Enterobacteriac sp PCR (Not Detect) E. cloacae complex PCR (Not Detect) Enterococcus sp PCR (Not Detect) E. coli (PCR) (Not Detect) H. influenzae (PCR) (Not Detect) Human Metapneumovir PCR (Not Detect) Influenza A (H1) PCR (Not Detect) Influ A (H1N1/09) PCR (Not Detect) Influenza A (H3) PCR (Not Detect) Influenza A Untype (PCR) (Not Detect) Influenza Type B (PCR) (Not Detect) Klebsiella oxytoca PCR (Not Detect) Klebsiella pneumoniae (Not Detect) List. monocytogenes PCR (Not Detect) M.pneumoniae DNA (PCR) (Not Detect) N. meningitidis (PCR) (Not Detect) Parainfluenza 1 (PCR) (Not Detect) Parainfluenza 2 (PCR) (Not Detect) Parainfluenza 3 (PCR) (Not Detect) Parainfluenza 4 (PCR) (Not Detect) Proteus species (PCR) (Not Detect) RSV (PCR) (Not Detect) Entero/Rhino (PCR) (Not Detect) Serratia marcescens PCR (Not Detect) Staphylococcus sp PCR (Not Detect) Staph aureus (PCR) (Not Detect) mecA-Methicil Res Gene (Not Detect) Streptococcus sp PCR (Not Detect) Group A Strep DNA (Not Detect) Group B Strep (PCR) (Not Detect) Strep pneumoniae (PCR) (Not Detect) P. aeruginosa (PCR) (Not Detect) Nuvia/B-Vanco Res Genes (Not Detect) KPC (blaKPC) Detect PCR (Not Detect) 10/10/18 10/09/18 10/07/18 Range/Units 00:43 09:30 21:30 Urine Color Yellow Dark Yellow (Yellow) Urine Clarity Cloudy A Cloudy A (Clear) Urine pH 6.0 7.5 (5.0-8.0) pH Units Ur Specific Meherrin 1.018 1.020 (1.010-1.025) Urine Protein >=300 H >=1000 H (Neg-Trace) mg/dL Urine Glucose (UA) Normal 250 H (Normal) mg/dL Urine Ketones Negative Negative (Negative) mg/dL Urine Blood Large H Large H (Negative) Urine Nitrite Negative Negative (Negative) Urine Bilirubin Negative Small H (Negative) Urine Urobilinogen Normal Normal (Normal) mg/dL Ur Leukocyte Esterase Moderate H Moderate H (Negative) Urine Microscopic RBC 5-15 H TNTC H (0-3) per hpf Urine Microscopic WBC 50-100 H TNTC H (0-3) per hpf Ur Squamous Epith Cells Many H Many H (None-Few) per lpf Amorphous Sediment Few (Few) Urine Bacteria None Seen Many H (None-Few) per hpf Hyaline Casts None Seen Few (None-Few) per lpf Ur Culture Indicated? NO. A (NO) Urine Creatinine mg/dL Protein/Creatinin Ratio (0.00-0.20) mg/mg Urine Sodium mEq/L Urine Total Protein (1-14) mg/dL A. baumannii (PCR) (Not Detect) Chlamy pneumoniae PCR Not Detected (Not Detect) Adenovirus (PCR) Not Detected (Not Detect) B. pertussis DNA (PCR) Not Detected (Not Detect) B.parapertussis DNA PCR Not Detected (Not Detect) Fina albicans (PCR) (Not Detect) C. glabrata (PCR) (Not Detect) C. krusei (PCR) (Not Detect) C. parapsilosis (PCR) (Not Detect) C. tropicalis (PCR) (Not Detect) Coronavirus OC43 (PCR) Not Detected (Not Detect) Coronavirus HKU1 (PCR) Not Detected (Not Detect) Coronavirus 229E (PCR) Not Detected (Not Detect) Coronavirus NL63 (PCR) Not Detected (Not Detect) Enterobacteriac sp PCR (Not Detect) E. cloacae complex PCR (Not Detect) Enterococcus sp PCR (Not Detect) E. coli (PCR) (Not Detect) H. influenzae (PCR) (Not Detect) Human Metapneumovir PCR Not Detected (Not Detect) Influenza A (H1) PCR Not Detected (Not Detect) Influ A (H1N1/09) PCR Not Detected (Not Detect) Influenza A (H3) PCR Not Detected (Not Detect) Influenza A Untype (PCR) Not Detected (Not Detect) Influenza Type B (PCR) Not Detected (Not Detect) Klebsiella oxytoca PCR (Not Detect) Klebsiella pneumoniae (Not Detect) List. monocytogenes PCR (Not Detect) M.pneumoniae DNA (PCR) Not Detected (Not Detect) N. meningitidis (PCR) (Not Detect) Parainfluenza 1 (PCR) Not Detected (Not Detect) Parainfluenza 2 (PCR) Not Detected (Not Detect) Parainfluenza 3 (PCR) Not Detected (Not Detect) Parainfluenza 4 (PCR) Not Detected (Not Detect) Proteus species (PCR) (Not Detect) RSV (PCR) Not Detected (Not Detect) Entero/Rhino (PCR) Not Detected (Not Detect) Serratia marcescens PCR (Not Detect) Staphylococcus sp PCR (Not Detect) Staph aureus (PCR) (Not Detect) mecA-Methicil Res Gene (Not Detect) Streptococcus sp PCR (Not Detect) Group A Strep DNA (Not Detect) Group B Strep (PCR) (Not Detect) Strep pneumoniae (PCR) (Not Detect) P. aeruginosa (PCR) (Not Detect) Nuvia/B-Vanco Res Genes (Not Detect) KPC (blaKPC) Detect PCR (Not Detect) 10/07/18 Range/Units 18:23 Urine Color (Yellow) Urine Clarity (Clear) Urine pH (5.0-8.0) pH Units Ur Specific Meherrin (1.010-1.025) Urine Protein (Neg-Trace) mg/dL Urine Glucose (UA) (Normal) mg/dL Urine Ketones (Negative) mg/dL Urine Blood (Negative) Urine Nitrite (Negative) Urine Bilirubin (Negative) Urine Urobilinogen (Normal) mg/dL Ur Leukocyte Esterase (Negative) Urine Microscopic RBC (0-3) per hpf Urine Microscopic WBC (0-3) per hpf Ur Squamous Epith Cells (None-Few) per lpf Amorphous Sediment (Few) Urine Bacteria (None-Few) per hpf Hyaline Casts (None-Few) per lpf Ur Culture Indicated? (NO) Urine Creatinine mg/dL Protein/Creatinin Ratio (0.00-0.20) mg/mg Urine Sodium mEq/L Urine Total Protein (1-14) mg/dL A. baumannii (PCR) Not Detected (Not Detect) Chlamy pneumoniae PCR (Not Detect) Adenovirus (PCR) (Not Detect) B. pertussis DNA (PCR) (Not Detect) B.parapertussis DNA PCR (Not Detect) Fina albicans (PCR) Not Detected (Not Detect) C. glabrata (PCR) Not Detected (Not Detect) C. krusei (PCR) Not Detected (Not Detect) C. parapsilosis (PCR) Not Detected (Not Detect) C. tropicalis (PCR) Not Detected (Not Detect) Coronavirus OC43 (PCR) (Not Detect) Coronavirus HKU1 (PCR) (Not Detect) Coronavirus 229E (PCR) (Not Detect) Coronavirus NL63 (PCR) (Not Detect) Enterobacteriac sp PCR Not Detected (Not Detect) E. cloacae complex PCR Not Detected (Not Detect) Enterococcus sp PCR Not Detected (Not Detect) E. coli (PCR) Not Detected (Not Detect) H. influenzae (PCR) Not Detected (Not Detect) Human Metapneumovir PCR (Not Detect) Influenza A (H1) PCR (Not Detect) Influ A (H1N1/09) PCR (Not Detect) Influenza A (H3) PCR (Not Detect) Influenza A Untype (PCR) (Not Detect) Influenza Type B (PCR) (Not Detect) Klebsiella oxytoca PCR Not Detected (Not Detect) Klebsiella pneumoniae Not Detected (Not Detect) List. monocytogenes PCR Not Detected (Not Detect) M.pneumoniae DNA (PCR) (Not Detect) N. meningitidis (PCR) Not Detected (Not Detect) Parainfluenza 1 (PCR) (Not Detect) Parainfluenza 2 (PCR) (Not Detect) Parainfluenza 3 (PCR) (Not Detect) Parainfluenza 4 (PCR) (Not Detect) Proteus species (PCR) Not Detected (Not Detect) RSV (PCR) (Not Detect) Entero/Rhino (PCR) (Not Detect) Serratia marcescens PCR Not Detected (Not Detect) Staphylococcus sp PCR Not Detected (Not Detect) Staph aureus (PCR) Not Detected (Not Detect) mecA-Methicil Res Gene N/A (Not Detect) Streptococcus sp PCR DETECTED A (Not Detect) Group A Strep DNA Not Detected (Not Detect) Group B Strep (PCR) DETECTED A (Not Detect) Strep pneumoniae (PCR) Not Detected (Not Detect) P. aeruginosa (PCR) Not Detected (Not Detect) Nuvia/B-Vanco Res Genes N/A (Not Detect) KPC (blaKPC) Detect PCR N/A (Not Detect) - Impressions Impressions Echocardiogram 10/15/18 11:55 Impressions: LVEF 60%. Mildly dilated left ventricle. Mild segmental left ventricular systolic dysfunction. Moderate left ventricular diastolic dysfunction. Right ventricle was not well visualized. Grossly, it is normal in function. Mild aortic regurgitation. Mild mitral regurgitation. Mild tricuspid regurgitation. Moderate pulmonary hypertension. Estimated RVSP is 51 mmHg. Inadequate images to evaluate for endocarditis. Recommend MARILUZ if clinically indicated. Left Ventricular Wall Motion: Rest Echo Findings The apical lateral wall was hypokinetic. All other wall segments showed normal motion. Findings: Study Quality * Technically sub-optimal due to body habitus. ECG Findings * Sinus bradycardia. Left Ventricle * LVEF 60%. * Mildly dilated left ventricle. * Moderate left ventricular diastolic dysfunction. * Mild segmental left ventricular systolic dysfunction. Right Ventricle * Right ventricle was not well visualized. Grossly, it is normal in function. Left Atrium * Mildly dilated left atrium. Right Atrium * Mildly dilated right atrium. Aortic Valve * Aortic valve not well visualized. * Mild aortic regurgitation. * No aortic stenosis. Mitral Valve * Mildly thickened mitral valve leaflets. * Mild mitral regurgitation. * No mitral stenosis. Tricuspid Valve * Not well visualized. * Mild tricuspid regurgitation. * Moderate pulmonary hypertension. * Estimated RVSP is 51 mmHg. * Estimated RA pressure is 5 mmHg. Pulmonic Valve * Pulmonic valve not well visualized. * No pulmonic regurgitation. Aorta * Normally sized aortic root. Pericardium * The pericardium appears normal. IVC * The IVC is not dilated. * Response to Valsalva not well appreciated. Pulmonary Artery * Pulmonary artery not well visualized. Exam - Constitutional Vitals: Temp Pulse Resp BP Pulse Ox 97.6 F 81 14 192/74 97 10/17/18 05:52 10/17/18 05:52 10/17/18 05:52 10/17/18 05:52 10/17/18 05:52 General appearance: cooperative, morbidly obese, no acute distress - Head Head exam: Present: atraumatic, normal inspection, normocephalic - Eye Eye exam: Present: EOMI, normal appearance, PERRL Pupils: Present: normal accommodation - ENT ENT exam: Present: mucous membranes moist - Neck Neck exam: Present: normal inspection - Respiratory Respiratory exam: Absent: CTAB, rales, respiratory distress, rhonchi, wheezes - Cardiovascular Cardiovascular exam: Present: RRR, +S1, +S2 - GI/Abdominal GI/Abdominal exam: Present: distended (obese), normal bowel sounds, soft. Absent: tenderness - Extremities Exam Extremities exam: Present: pedal edema (1+ LLE). Absent: joint swelling, normal inspection (Chronic venous stasis dermatitis noted to the left lower leg with desquamation noted. Left foot dressing/wound VAC C/D/I without leak. Scant serous drainage noted in the canister.), tenderness Additional comments: Right AKA stump without abnormality. - Neurological Exam Neurological exam: Present: alert, oriented X3, no focal deficits - Psychiatric Psychiatric exam: Present: normal affect, normal mood - Skin Skin exam: Present: dry, intact, normal color, warm Consult Discharge Plan - Plan Referrals: Fredrick Oneil DPM [Partnered Physician] - 10/22/18 1:30 pm Magalys Ramos MAKEUP ARTIST [Advanced Practice Nurse] - 10/28/18 2:25 pm Prescriptions: cefTRIAXone [Rocephin] 2,000 mg IVPB DAILY 14 Days #14 vial - Attending Attestation I have personally performed a face to face evaluation on this patient. I have reviewed and agree with the care plan. History and Exam by me shows: A/P: 1.sepsis 2.bacteremia with group B streptococcus 3.osteomyelitis of the left calcaneus 4.left foot abscess with group B streptococcus and Proteus mirabilis Recommendations: Wound care per the Podiatry team. Continue Rocephin 2 g IV daily. Duration of treatment depends on the clinical picture, but we will likely do a prolonged course of IV antibiotics given that the patient is at high risk for loss of limb if infection progresses and she has already undergone a right AKA. We will follow the patient closely in clinic and base our duration of treatment on how well she does and her inflammatory markers. Continue IV antibiotics until evaluated by infectious disease as an outpatient. Monitor renal function and dose-adjust antibiotics. We will need weekly CBC, BUNs/creatinine, ESR, and CRP. Will need weekly IV care per protocol. Follow up with ID 10/28/18 at 1425.
[2018-10-17 10:11] LABS: Basophils % 0.4 %; Eosinophils # 0.1 K/mcL (0.0-0.6); Eosinophils % 1.3 %; Hematocrit 33.2 % (35.3-44.9); Hemoglobin 9.6 g/dL (11.5-15.4); Immature Granulocytes % 2.8 % (0-4); Lymphocytes # 1.5 K/mcL (0.6-4.6); Lymphocytes % 18.2 %; Mean Corpuscular HGB Conc 28.9 g/dL (31.6-35.5); Mean Corpuscular Hemoglobin 25.3 pg (28.0-33.3); Mean Corpuscular Volume 87.4 fL (83.0-100.0); Mean Platelet Volume 10.1 fL (9.4-12.4); Monocytes # 0.8 K/mcL (0.0-1.3); Monocytes % 9.4 %; Neutrophils # 5.6 K/mcL (1.6-8.9); Nucleated Red Blood Cells 1.9 /100 WBC (0); Platelet Count 401 K/mcL (140-400); Red Cell Distribution Width 22.5 % (11.5-14.5); Segmented Neutrophils % 67.9 %
[2018-10-17 11:34] LABS: Platelet Estimate Normal (Normal); Polychromasia 1+ (Not Present)
[2018-10-17 12:46] LABS: Calcium 8.9 mg/dL (8.6-10.3)
--- NOTE | 2018-10-17 13:13 | Discharge Summary ---
<Hoa Sanders M - Last Filed: 10/17/18 14:13> - NOTES TO OUTPATIENT PROVIDER Notes to Outpatient Provider: Patient presented for hyperglycemia and was found to have left lower extremity cellulitis, abscess, and suspected osteomyelitis that received I&D, wound vac placement, and prolonged course of IV antibiotics with IV Rocephin. Will need follow up with podiatry in one week, ID on 10/28, Nephrology. Will need repeat BMP on 10/20 to monitor potassium and kidney function. Will need daily Home health. Will need weekly CBC, BMP, ESR, CRP. Will need weekly IV care per protocol. Orders not resulted at time of discharge: Pending orders 10/08/18 00:39 Culture,Sputum with Gram Stain [RM] Routine 10/10/18 17:04 AFB Culture, Tissue [TB] Routine AFB Smear [TB] Routine Fungal Culture [MYC] Routine Date of Encounter: 10/17/18 Time of Encounter: 09:30 - Discharge Diagnosis (1) Sepsis Priority: Primary Status: Resolved Qualifiers: Sepsis type: Streptococcus group B Qualified Code(s): A40.1 - Sepsis due to streptococcus, group B (2) Cellulitis of left lower extremity Priority: Secondary Status: Acute (3) Foot abscess, left Priority: Secondary Status: Acute (4) Osteomyelitis Priority: Secondary Status: Suspected Qualifiers: Osteomyelitis type: acute hematogenous Osteomyelitis location: foot Laterality: left Qualified Code(s): M86.072 - Acute hematogenous os teomyelitis, left ankle and foot (5) Pressure ulcer, heel, left, unstageable Priority: Secondary Status: Acute (6) Hyperkalemia Priority: Secondary Status: Resolved (7) Acute kidney injury superimposed on chronic kidney disease Priority: Secondary Status: Acute (8) Constipation Priority: Secondary Status: Resolved (9) Anemia Priority: Secondary Status: Chronic Qualifiers: Anemia type: unspecified type Qualified Code(s): D64.9 - Anemia, unspecified (10) Diabetes Priority: Secondary Status: Chronic Qualifiers: Diabetes mellitus type: type 2 Diabetes mellitus manager long term care insulin use: unspecified manager long term care insulin use status Diabetes mellitus complication status: with circulatory complication Diabetes mellitus complication detail: with other circulatory complications Qualified Code(s): E11.59 - Type 2 diabetes mellitus with other circulatory complications (11) Chronic diastolic heart failure Priority: Secondary Status: Chronic (12) Hypertension Priority: Secondary Status: Chronic Qualifiers: Hypertension type: essential hypertension Qualified Code(s): I10 - Essential (primary) hypertension (13) CAD (coronary artery disease) Priority: Secondary Status: Chronic Qualifiers: Coronary Disease-Associated Artery/Lesion type: [place] artery [place] vs. transplanted heart: [place] heart Associated angina: without angina Qualified Code(s): I25.10 - Atherosclerotic heart disease of [place] coronary artery without angina pectoris (14) S/P BKA (below knee amputation) Priority: Secondary Status: Chronic Qualifiers: Laterality: right Qualified Code(s): Z89.511 - Acquired absence of right leg below knee (15) Pneumonia Priority: Secondary Status: Resolved Qualifiers: Pneumonia type: due to unspecified organism Laterality: right Lung location: lower lobe of lung Qualified Code(s): J18.1 - Lobar pneumonia, unspecified organism Hospital course: Ms. 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 She has a known left lower extremity wound ongoing therapy by Podiatry. There was increased drainage. While in the ER, she was found to have possible right lower lobe pneumonia and received Rocephin and azithromycin as well as IVFs. She was noted to be septic and started on broad spectrum antibiotics. Sepsis was due to pneumonia, left lower extremity cellulitis and strep bacteremia. The patient was noted to have increased warmth and erythema of the left lower extremity consistent with cellulitis. Podiatry and infectious disease were consulted. Blood cultures were obtained. 1 out of 2 blood cultures on October 07 were positive for group B strep. CRP and ESR were elevated. Foot x-ray was obtained that showed soft tissue wound on the left heel without underlying bony abnormality. Her extremity CT showed large soft tissue ulceration measuring 5 cm plantar margin of the calcaneus. MRI was obtained. Results showed Large shallow soft tissue ulceration of the pelvic per aspect of the heel with diffuse subcutaneous edema and 2 x 1.4 x 1.4 cm complex fluid collection in the subcutaneous fat of the posterior aspect of the heel compatible with an abscess. Very mild bone marrow edema in posterior inferior aspect of calcaneus with no osseous erosion suspicious for noninfectious reactive osteitis versus early osteomyelitis. The patient received an incision and drainage of the left foot abscess on October 10 by podiatry. Operative culture was positive for Proteus mirabilis and strep agalactia. A wound VAC was placed on the left heel on October 13 by podiatry. Patient received broad-spectrum antibiotics with vancomycin and Zosyn. Antibiotics were eventually deescalated to IV Rocephin. Patient will require a prolonged course of IV antibiotics secondary to suspected osteomyelitis. Secondary to the gram-positive bacteremia, the patient received an echocardiogram to evaluate for any vegetations. Her ejection fraction was unchanged, 60%. However there was limited valvular view to evaluate for endocarditis. Repeat blood cultures were obtained that were negative. Fungal culture, acid-fast stain of the left foot, anaerobic culture of the left foot were negative. The patient did develop acute kidney injury superimposed on chronic kidney disease stage III. This is likely due to sepsis, vancomycin, Zosyn. Nephrology consultation was obtained. Likely component of prerenal as well as intrinsic disease. Patient received maintenance IV fluids. Retroperitoneal ultrasound showed upper pole of right kidney with cyst and calcification likely infrarenal stones. Urine protein creatinine ratio was elevated. Patient did have improvement in her renal function. We will avoid nephrotoxic medications. Her lisinopril was put on hold secondary to the AKA I will be resumed secondary to improvement in her a CAD. She will need to follow up with nephrology as outpatient. The patient also developed hyperkalemia which she received Kayexalate and had improvement. She will need a repeat BMP as an outpatient to monitor this. The patient also experienced some constipation and a KUB was obtained that showed no acute intra-abdominal process. Patient received Dulcolax, Colace, mag citrate with improvement in her bowel movements. The patient sepsis resolved. She has improvement in pain of the left lower extremity. She will require wound VAC changes on Saturday, Saturday, Fridays. She will require daily antibiotic of IV Rocephin 2 g for a prolonged course that will be determined by infectious disease. Patient will need to follow-up with podiatry, infectious disease, nephrology, her primary care physician. She will receive daily home health. Patient is medically stable for discharge home with home health. All questions answered and she is agreeable to plan of care. Discussed dietary and lifestyle changes including smoking cessation. - Time Spent with Patient Total time spent providing and/or coordinating discharge services: - Discharge Medications Prescriptions: New cefTRIAXone [Rocephin] 2,000 mg IVPB DAILY 14 Days #14 vial cefTRIAXone [Rocephin] 2,000 mg IVPB DAILY 14 Days #28 vial Continue Ferrous Sulfate 325 mg PO BIDWM Clopidogrel [Plavix] 75 mg PO DAILY Gabapentin [Neurontin] 300 mg PO BID Magnesium Oxide [Magnesium] 400 mg PO DAILY Lisinopril [Zestril] 10 mg PO DAILY Sertraline [Zoloft] 100 mg PO DAILY Ranitidine HCl [Acid Home Economist] 150 mg PO BID Nitroglycerin [Nitrostat] 0.4 mg SL Q5M PRN PRN Reason: Chest Pain Atorvastatin Calcium [Lipitor] 80 mg PO DAILY Metformin HCl [Glucophage] 1,000 mg PO BID Sennosides [Senna] 8.6 mg PO DAILY Insulin Glargine,Hum.rec.anlog [Basaglar Kwikpen U-100] 60 unit SQ QAM amLODIPine [Norvasc] 10 mg PO DAILY 30 Days #30 tablet Aspirin 81 mg PO DAILY 30 Days #30 tab.chew Docusate Sodium [Colace] 100 mg PO BID PRN #30 capsule PRN Reason: Constipation Metoprolol [Lopressor] 12.5 mg PO BID Acetaminophen [Extra Strength Non-Aspirin] 500 mg PO Q6H PRN PRN Reason: Pain Insulin LISPRO [Admelog] 15 - 32 units SQ TID Home Medications: Atorvastatin Calcium [Lipitor] 80 mg PO DAILY 08/21/16 [History] Clopidogrel [Plavix] 75 mg PO DAILY 08/21/16 [History] Ferrous Sulfate 325 mg PO BIDWM 08/21/16 [History] Gabapentin [Neurontin] 300 mg PO BID 08/21/16 [History] Lisinopril [Zestril] 10 mg PO DAILY 08/21/16 [History] Magnesium Oxide [Magnesium] 400 mg PO DAILY 08/21/16 [History] Nitroglycerin [Nitrostat] 0.4 mg SL Q5M PRN 08/21/16 [History] Ranitidine HCl [Acid Home Economist] 150 mg PO BID 08/21/16 [History] Sertraline [Zoloft] 100 mg PO DAILY 08/21/16 [History] Metformin HCl [Glucophage] 1,000 mg PO BID 03/28/17 [History] Sennosides [Senna] 8.6 mg PO DAILY 06/19/17 [History] Insulin Glargine,Hum.rec.anlog [Basaglar Kwikpen U-100] 60 unit SQ QAM 12/30/17 [History] amLODIPine [Norvasc] 10 mg PO DAILY 30 Days #30 tablet 02/07/18 [Rx] Aspirin 81 mg PO DAILY 30 Days #30 tab.chew 04/22/18 [Rx] Docusate Sodium [Colace] 100 mg PO BID PRN #30 capsule 07/01/18 [Rx] Acetaminophen [Extra Strength Non-Aspirin] 500 mg PO Q6H PRN 10/08/18 [History] Insulin LISPRO [Admelog] 15 - 32 units SQ TID 10/08/18 [History] Metoprolol [Lopressor] 12.5 mg PO BID 10/08/18 [History] cefTRIAXone [Rocephin] 2,000 mg IVPB DAILY 14 Days #14 vial 10/13/18 [Rx] cefTRIAXone [Rocephin] 2,000 mg IVPB DAILY 14 Days #28 vial 10/17/18 [Rx] Allergies/Adverse Reactions: Allergy/AdvReac Type Severity Reaction Status Date / Time hydromorphone [From Dilaudid] Allergy Palpitation Verified 06/25/18 14:52 s heparin AdvReac See Verified 06/25/18 14:52 Comments Date of admission: 10/07/18 22:35 Primary care physician: Matteo Love MD Consults: 10/07/18 23:36 Consult to Infectious Diseases [CONS] Routine Consulting Provider: [facility] [place] Reason for Consult: cellulitis Call Completed: No Consult to Podiatry [CONS] Routine Consulting Provider: Podiatry [facility] Reason for Consult: cellulitis, necrosis, diabetic foot ulcer Call Completed: No 10/08/18 13:25 Consult to Invasive Line Access Team [CONS] Routine Reason for Consult: need iv access Line Type: EPIV PICC line indications: Limited vascular access Call Completed: Yes 10/09/18 14:53 Consult to Data Operations Leader [CONS] Routine Reason for SW Consult: [facility] 10/13/18 11:15 Consult to Occupational Therapy [CONS] Routine Comment: Evaluate, develop and implement POC Reason for Consult: physical deconditioning Does patient have active BEDREST order?: No Is patient medically & hemodynamically stable?: Yes Consult to Physical Therapy [CONS] Routine Comment: Evaluate, develop and implement POC Reason for Consult: physical deconditioning Does patient have active BEDREST order?: No Is patient medically & hemodynamically stable?: Yes 10/13/18 11:33 Consult to Nephrology [CONS] Routine Consulting Provider: [facility]/ARON/MARIO ALBERTO/JORDON Reason for Consult: REMY on CKD Call Completed: Yes Discharging clinician: Hoa Sanders Anticipated date of discharge: 10/17/18 - Constitutional Vitals: Temp Pulse Resp BP Pulse Ox 97.9 F 57 16 155/77 97 10/17/18 09:56 10/17/18 09:56 10/17/18 09:56 10/17/18 09:56 10/17/18 09:56 Exam: General: alert, no acute distress, sitting on edge of bed HEENT: atraumatic, normocephalic, oral mucosa moist, normal conjunctiva, no scleral icterus Cardiac: RRR, no murmur, normal S1, S2 Lungs: CTA bilaterally without wheezing or crackles Abdomen: soft, nontender, nondistended MSK: Right BKA. Left lower extremity with aneudy wrap on foot and ankle. Wound vac in place with heel medix boot. Mild LLE swelling and erythema with cracking, unchanged from yesterday. mild swelling. Mild tenderness to palpation Neuro: AAOx3, no sensory deficits Psych: appropriate mood and affect Skin: LLE with erythema and dryness and cracking to mid addison and calf, unchanged from yesterday. Warm. - Patient Status Disposition: Home Health Service Condition: Fair Functional capacity at discharge: bed bound (Move with assistance. Non weight bearing of left leg) Overall status at discharge: patient is progressing back to baseline - Ambulatory Orders Ambulatory Orders: Basic Metabolic Panel [CHEM] Time Frame: 1 Week, Facility: [facility], Location: Lab Complete Blood Count [HEME] Time Frame: 1 Week, Facility: [facility], Location: Lab C-Reactive Protein [CHEM] Time Frame: 1 Week, Facility: [facility], Location: Lab Erythrocyte Sedimentation Rate [HEME] Time Frame: 1 Week, Facility: [facility], Location: Lab - Discharge Instructions Instructions: Cellulitis (DC), Osteomyelitis (DC), Diabetes Mellitus Type 2 in Adults (DC) Follow Up With: Fredrick Oneil DPM [Partnered Physician] - 10/22/18 1:30 pm Magalys Ramos CNP [Advanced Practice Nurse] - 10/28/18 2:25 pm Additional Instructions: COntinue IV Rocephin 2g daily. Course will be determined by Infectious disease Continue your home medications Activity per physical therapy and home health Do not bear weight weight on your left lower extremity Wound vac changes on Saturday, Saturday, Saturday Will need weekly labs Follow up with your primary care physician early next week Follow up with Podiatry and Infectious disease as scheduled Call your Loss Prevention Auditor to make an appointment with them as outpatient Follow a diabetic, renal diet and increase fiber in your diet Monitor your blood glucose closely Supplement your diet with Immanuel BID - Diet and Activity Activity: as per physical therapy, other (non weight bearing of left left) Diet: diabetic diet, low salt diet <Corey Grider - Last Filed: 10/17/18 14:34> Orders not resulted at time of discharge: Pending orders 10/08/18 00:39 Culture,Sputum with Gram Stain [RM] Routine 10/10/18 17:04 AFB Culture, Tissue [TB] Routine AFB Smear [TB] Routine Fungal Culture [MYC] Routine Date of Encounter: 10/17/18 Date of admission: 10/07/18 22:35 Primary care physician: Matteo Love MD Consults: 10/07/18 23:36 Consult to Infectious Diseases [CONS] Routine Consulting Provider: [facility] Reason for Consult: cellulitis Call Completed: No Consult to Podiatry [CONS] Routine Consulting Provider: [facility] Reason for Consult: cellulitis, necrosis, diabetic foot ulcer Call Completed: No 10/08/18 13:25 Consult to Invasive Line Access Team [CONS] Routine Reason for Consult: need iv access Line Type: EPIV PICC line indications: Limited vascular access Call Completed: Yes 10/09/18 14:53 Consult to Data Operations Leader [CONS] Routine Reason for SW Consult: [facility] 10/13/18 11:15 Consult to Occupational Therapy [CONS] Routine Comment: Evaluate, develop and implement POC Reason for Consult: physical deconditioning Does patient have active BEDREST order?: No Is patient medically & hemodynamically stable?: Yes Consult to Physical Therapy [CONS] Routine Comment: Evaluate, develop and implement POC Reason for Consult: physical deconditioning Does patient have active BEDREST order?: No Is patient medically & hemodynamically stable?: Yes 10/13/18 11:33 Consult to Nephrology [CONS] Routine Consulting Provider: Kidney Carmen/ARON/MARIO ALBERTO/JORDON Reason for Consult: REMY on CKD Call Completed: Yes - Attending Attestation Patient seen and examined. I agree with the discharge plan as documented above by the resident. In summary, Jessenia Mccallum is a 53 F w hx DM2, CKD3a, who presented at time of admission with painful swelling LLE, found to have cellulitis and abscess progressing to strep bacteremia and osteomyelitis per MRI, taken by podiatry to OR for I&D on 10/10 for source control. Wound vac placed to assist healing and will need qMWF dressing changes. TTE negative for vegetations. Pt on Rocephin 2g daily, will need for 6 weeks. Hospital course complicated by REMY likely from vancomycin, with resultant hyperkalemia which improved with kayexalate and time. Will discharge home w home health and wound care, close PCP follow up for lab recheck, and follow up with ID and podiatry. Dx: cellulitis, abscess, strep bacteremia, osteomyelitis L foot, REMY, hyperkalemia Pertinent tests/consults: MRI showing osteomyelitis L foot, podiatry and ID consults Follow up: PCP, ID, Podiatry, home health Med changes: Rocephin 2g daily through 11/21 Mental status: awake, fully oriented Code status: Priest spent on discharge: 35 minutes
--- NOTE | 2018-10-17 13:29 | Physician Discharge Referral ---
Home Health/Hosp Referral Info Transfer to: Home Health Provider in Charge Post Discharge: PCP - Diagnosis (1) Sepsis Priority: Primary Status: Resolved (2) Cellulitis of left lower extremity Priority: Secondary Status: Acute (3) Foot abscess, left Priority: Secondary Status: Acute (4) Osteomyelitis Priority: Secondary Status: Suspected (5) Pressure ulcer, heel, left, unstageable Priority: Secondary Status: Acute (6) Hyperkalemia Priority: Secondary Status: Resolved (7) Acute kidney injury superimposed on chronic kidney disease Priority: Secondary Status: Acute (8) Constipation Priority: Secondary Status: Resolved (9) Anemia Priority: Secondary Status: Chronic (10) Diabetes Priority: Secondary Status: Chronic (11) Chronic diastolic heart failure Priority: Secondary Status: Chronic (12) Hypertension Priority: Secondary Status: Chronic (13) CAD (coronary artery disease) Priority: Secondary Status: Chronic (14) S/P BKA (below knee amputation) Priority: Secondary Status: Chronic - Respiratory Orders Smoking Cessation: Smoking cessation has been advised. For more information, call the [employer] Tobacco Quit Line at 6-200-BEUX-NOW. - Dressing/Wound Care Site: Change wound vac every Saturday, Saturday, and Saturday Nursing staff to call Podiatry for any questions or concerns. Heel medix boots to be worn left heel at all times while in bed Non weight bearing left lower extremity Weekly IV care per protocol Weekly CBC, BMP, ESR, CRP Type of Dressing/Treatments w/Frequency: Wound Vac changes every Saturday, Saturday, Saturday - Diet/Nutrition Diet/Nutrition Orders: Renal, Cardiac, No Concentrated Sweets Diet/Nutrition: List: Immanuel BID - Activity Activity Orders: Bedrest (Right BKA, non weight bearing LLE) - Services Needed Following services are medically necessary services: Nursing, Home Health Aide, Physical Therapy, Occupational Therapy, Home Infusion (Daily ceftriaxone) - Transfer Medications Prescriptions: cefTRIAXone [Rocephin] 2,000 mg IVPB DAILY 14 Days #14 vial cefTRIAXone [Rocephin] 2,000 mg IVPB DAILY 14 Days #28 vial Home Medications: Atorvastatin Calcium [Lipitor] 80 mg PO DAILY 08/21/16 [History] Clopidogrel [Plavix] 75 mg PO DAILY 08/21/16 [History] Ferrous Sulfate 325 mg PO BIDWM 08/21/16 [History] Gabapentin [Neurontin] 300 mg PO BID 08/21/16 [History] Lisinopril [Zestril] 10 mg PO DAILY 08/21/16 [History] Magnesium Oxide [Magnesium] 400 mg PO DAILY 08/21/16 [History] Nitroglycerin [Nitrostat] 0.4 mg SL Q5M PRN 08/21/16 [History] Ranitidine HCl [Acid School Bus Driver/Mechanic] 150 mg PO BID 08/21/16 [History] Sertraline [Zoloft] 100 mg PO DAILY 08/21/16 [History] Metformin HCl [Glucophage] 1,000 mg PO BID 03/28/17 [History] Sennosides [Senna] 8.6 mg PO DAILY 06/19/17 [History] Insulin Glargine,Hum.rec.anlog [Basaglar Kwikpen U-100] 60 unit SQ QAM 12/30/17 [History] amLODIPine [Norvasc] 10 mg PO DAILY 30 Days #30 tablet 02/07/18 [Rx] Aspirin 81 mg PO DAILY 30 Days #30 tab.chew 04/22/18 [Rx] Docusate Sodium [Colace] 100 mg PO BID PRN #30 capsule 07/01/18 [Rx] Acetaminophen [Extra Strength Non-Aspirin] 500 mg PO Q6H PRN 10/08/18 [History] Insulin LISPRO [Admelog] 15 - 32 units SQ TID 10/08/18 [History] Metoprolol [Lopressor] 12.5 mg PO BID 10/08/18 [History] cefTRIAXone [Rocephin] 2,000 mg IVPB DAILY 14 Days #14 vial 10/13/18 [Rx] cefTRIAXone [Rocephin] 2,000 mg IVPB DAILY 14 Days #28 vial 10/17/18 [Rx] Allergies/Adverse Reactions: Allergy/AdvReac Type Severity Reaction Status Date / Time hydromorphone [From Dilaudid] Allergy Palpitation Verified 06/25/18 14:52 s heparin AdvReac See Verified 06/25/18 14:52 Comments Certification: Further, I certify that my clinical findings support that this patient is homebound (i.e. absences from home require considerable and taxing effort and ar e for medical reasons or jew services or infrequently or short duration when for other reasons) because: Homebound Reason: Patient requires assistance of a person or device to safely leave home, Post-surgery restriction and or conditions limit ability to leave home, Leaving home requires considerable and taxing effort due to condition Attestation: My signature below is to certify that this patient is under my care and that I, or nurse practitioner, or a physician's employment assistant working with me, has a [id number] encounter with this patient.
[2018-10-17 14:04] VITALS: BP 164/83
[2018-10-17] MEDS: cefTRIAXone 2,000 MG in 0.9 % Sodium Chloride Mini Bag 100 ML IVPB SCH (16:30)
--- NOTE | 2018-10-17 16:37 | Podiatry Progress Note ---
Date of Encounter: 10/17/18 Time of Encounter: 16:30 - Assessment and Plan (1) Pressure ulcer, heel, left, unstageable Status: Acute Assessment: Ulceration with wound vac in place. Wound vac removed. Wound bed pink in color with slough noted Surrounding tissue with large amount of maceration noted Minimal erythema and edema noted. WBC 8.2 Surgical biopsy returned proteus and group b strep Blood cultures 10/07 positive x 1 set group b strep 2nd set blood cultures 3/ negative x 2 Fungal culture pending Acid fast negative Plan: Painted surrounding macerated tissue with betadine Covered wound bed with 4x4 dry gauze and kerlex. Secured with ANIKA bandage Home health to change bandage daily. Patient to follow up with Dr. Oneil next Saturday Subjective Principal diagnosis: s/p I&D left foot Interval history: Patient awake in bed. States she is going home today after 6 pm. Patient reports having medella wound vac supplies in room. Denies any fevers, chills, nausea, vomiting, or diarrhea. Denies ay calf pain, chest pain, or shortness of breath. and son at bedside. No questions or concerns at this time Objective - Vital Signs Vital Signs: Vital Signs Temp Pulse Resp BP Pulse Ox 10/17/18 14:00 97.5 F L 56 16 164/83 97 10/17/18 09:56 97.9 F 57 16 155/77 97 10/17/18 05:52 97.6 F 81 14 192/74 97 10/17/18 00:40 97.4 F L 56 15 177/75 10/16/18 20:47 97.9 F 59 14 171/71 97 10/16/18 18:50 96 Intake and Output 10/17/18 10/17/18 10/17/18 07:59 15:59 23:59 Intake Total 240 / 240 240 / 240 Balance 240 / 240 240 / 240 Intake: Oral 240 / 240 240 / 240 Other: Meal Lunch Percent of Meal Consumed 50% # Urine Diapers 0 0 1 # Bowel Movement Diapers 0 0 Blood Glucose* 198 228 246 - Exam Exam: Constitiutional: Alert and oriented x 3. Well nourished. No acute distress noted Vascular: 1/4 DP/PT LLE, CFT <3 sec to all digits LLE, warm to warm from tibia to toes LLE, no calf pain with squeeze LLE Neurologic: Diminished sensation to touch, normal plantar response, abnormal position sense dorsiflexion/plantar flexion Dermatologic: Large amount of maceration surrounding wound bed. Wound bed with slough noted. Minimal erythema and edema noted. Musculoskeletal: 3/5 muscle strength and normal tone LLE. - Lab Result Diagrams: 10/17/18 09:32 10/17/18 11:43 Labs: Abnormal lab results RBC 3.80 M/mcL (3.82-4.97) L 10/17/18 09:32 Hgb 9.6 g/dL (11.5-15.4) L 10/17/18 09:32 Hct 33.2 % (35.3-44.9) L 10/17/18 09:32 MCH 25.3 pg (28.0-33.3) L 10/17/18 09:32 MCHC 28.9 g/dL (31.6-35.5) L 10/17/18 09:32 RDW 22.5 % (11.5-14.5) H 10/17/18 09:32 Plt Count 401 K/mcL (140-400) H 10/17/18 09:32 Nucleated RBCs/100 WBC 1.9 /100 WBC (0) H 10/17/18 09:32 Polychromasia 1+ (Not Present) A 10/17/18 09:32 Hypochromasia Present (Not Present) A 10/14/18 04:30 Poikilocytosis 1+ (Not Present) A 10/14/18 04:30 Anisocytosis 2+ (Not Present) A 10/14/18 04:30 ESR >= 130 mm/hr (0-15) H 10/07/18 18:23 VBG pCO2 32 mmHg (41-51) L 10/07/18 21:02 VBG pO2 84 mmHg (25-50) H 10/07/18 21:02 VBG HCO3 17 mEq/L (21-27) L 10/07/18 21:02 Sodium 135 mEq/L (136-145) L 10/17/18 11:43 Carbon Dioxide 22 mEq/L (23-29) L 10/17/18 11:43 BUN 44 mg/dL (6-20) H 10/17/18 11:43 Creatinine 1.83 mg/dL (0.60-1.20) H 10/17/18 11:43 Est GFR ( Amer) 35 (> 60) L 10/17/18 11:43 Est GFR (Non-Af Amer) 29 (> 60) L 10/17/18 11:43 Glucose 264 mg/dL (70-105) H 10/17/18 11:43 POC Glucose 257 mg/dL (70-99) H 10/16/18 20:54 Hemoglobin A1c 10.0 % (-5.6) H 10/08/18 05:01 C-Reactive Protein 40 mg/L (Less than 10) H 10/13/18 05:06 Beta-Hydroxybutyric Acd 0.29 mmol/L (0.02-0.27) H 10/07/18 20:51 Urine Protein 100 mg/dL (Neg-Trace) H 10/14/18 04:00 Urine Glucose (UA) 250 mg/dL (Normal) H 10/14/18 04:00 Urine Blood Small (Negative) H 10/14/18 04:00 Urine Microscopic RBC 5-15 per hpf (0-3) H 10/14/18 04:00 Urine Microscopic WBC 3-5 per hpf (0-3) H 10/14/18 04:00 Ur Squamous Epith Cells Many per lpf (None-Few) H 10/14/18 04:00 Protein/Creatinin Ratio 4.97 mg/mg (0.00-0.20) H 10/15/18 04:00 Urine Total Protein 313 mg/dL (1-14) H 10/15/18 04:00 Vancomycin Trough 16 mcg/mL (5-10) H 10/12/18 04:05 Streptococcus sp PCR DETECTED (Not Detect) A 10/07/18 18:23 Group B Strep (PCR) DETECTED (Not Detect) A 10/07/18 18:23 Microbiology, Last 48 Hours 10/10/18 17:04 Anaerobic Culture - Final Left Foot No anaerobes were recovered. Consult Discharge Plan - Plan Instructions: Cellulitis (DC), Osteomyelitis (DC), Diabetes Mellitus Type 2 in Adults (DC) Additional Instructions: COntinue IV Rocephin 2g daily. Course will be determined by Infectious disease Continue your home medications Activity per physical therapy and home health Do not bear weight weight on your left lower extremity Wound vac changes on Saturday, Saturday, Saturday Will need weekly labs Follow up with your primary care physician early next week Follow up with Podiatry and Infectious disease as scheduled Call your Business Instructor to make an appointment with them as outpatient Follow a diabetic, renal diet and increase fiber in your diet Monitor your blood glucose closely Supplement your diet with Immanuel BID Referrals: Fredrick Oneil DPM [Partnered Physician] - 10/22/18 1:30 pm Magalys Ramos CNP [Advanced Practice Nurse] - 10/28/18 2:25 pm Prescriptions: cefTRIAXone [Rocephin] 2,000 mg IVPB DAILY 14 Days #28 vial
== END 2018-10-17 18:00 | disposition home health service (06) | DRG 710 ==
LOC: EMEROOARM 17:42 → 3ANU 17:42 → SUATTDRO 22:35
PROVIDERS: ADMIT Internal Medicine; ATTEND Internal Medicine